=== PATIENT | female | born 1990 | race Caucasian/White ===

== ENCOUNTER 2022-12-23 23:34 | Emergency (ER) | payer MEDICAID, SELFPAY ==
[2022-12-23 23:35] VITALS: BP 142/79; PULSE 139; RESP 18; TEMP 36.6; O2SAT 99; BMI 21.6
--- NOTE | 2022-12-24 00:07 | CT_ITS ---
INDICATION: post op pain, RLQ pain EXAMINATION: CT ABDOMEN AND PELVIS WITH CONTRAST - CT Abdomen And Pelvis W/ Contrast Injection TECHNIQUE: Helically acquired images were obtained of the abdomen and pelvis following IV contrast. A radiation dose optimization technique was used for this scan. IV Contrast dosage and agent: 6 Oral contrast: None. COMPARISON: None. FINDINGS: LOWER CHEST: Lung bases are clear. No cardiomegaly or pericardial effusion. LIVER: Homogeneous. No focal mass. GALLBLADDER AND BILIARY TREE: No calcified gallstones. No gallbladder distension or wall edema. No intra- or extrahepatic biliary ductal dilation. PANCREAS: No focal cystic or solid mass. SPLEEN: Normal size without focal cystic or solid mass. ADRENAL GLANDS: No nodules. KIDNEYS AND URETERS: Normal renal size and position. No hydronephrosis. PERITONEUM: Small amount of free air and free fluid in the pelvis consistent with postsurgical changes . BOWEL: No stomach or bowel distension. No focal inflammatory change. LYMPH NODES: No enlarged mesenteric or retroperitoneal lymph nodes. VESSELS: Aorta is non-dilated. URINARY BLADDER: Unremarkable. REPRODUCTIVE ORGANS: No pelvic masses. ABDOMINAL WALL: There is heterogeneous high attenuation lesion involving the right transverse abdominis muscle measuring approximately 6.4 x 4 x 11 cm consistent with hematoma. BONES: No lytic or blastic abnormality. CT/Abdomen/Pelvis W IV Cont ONLY IMPRESSION: There is heterogeneous high attenuation lesion involving the right transverse abdominis muscle measuring approximately 6.4 x 4 x 11 cm consistent with hematoma. Electronically Signed: Azam Villanueva MD at 2:32 EST ,
[2022-12-24] MEDS: 0.9% Normal Saline 1,000 ML 1000 ML IV (00:11)
[2022-12-24] MEDS: Ondansetron 4 MG/2 ML Vial IV ×2 (00:16→03:36)
[2022-12-24] MEDS: HYDROmorphone 0.5 MG/0.5 ML SYRINGE IV ×2 (00:16→03:25)
--- NOTE | 2022-12-24 00:25 | EDS_ITS ---
HPI HPI - GI History of Present Illness Chief Complaint: Abd Pain Informant: patient and family Narrative Narrative: Patient is a 32-year-old female with history of recent hysterectomy performed by Dr. De La Rosa at [facility] on December 17. She is presenting to the ER today for increased abdominal pain, nausea, vomiting and constipation. She notes her last bowel movement was the day before her surgery on 16 December. She has been passing gas and intermittently taken a couple doses of MiraLAX as well as senna. The pain is worsened and her surgeon recommend she come to the ER. Patient started throwing up today and has not been able to take her pain medicine since this afternoon as well. She is the pain is constant but is much worse today. Patient has been taking Dilaudid at home for her pain. Her postoperative course was complicated by pain control. She denies any fever or changes to her wound. Denies any redness or drainage to her wound. Her sister notes that when she stands up she seems normal to have a bulge in her right lower abdomen that is not present when she lays flat. No other complaints at this time right now. Patient is a history of tobacco use has not had a cigarette in the past week. PFSH PFS Medical History Cervical cancer Former smoker Home Medications ondansetron 4 mg disintegrating tablet 4 mg PO Q6H PRN nausea and vomiting #10 tabs 12/24/22 [Rx Last Taken Unknown] Allergy/AdvReac Type Severity Reaction Status Date / Time No Known Allergies Allergy Verified 12/23/22 23:37 Surgical History S/P hysterectomy Social History Smoking Status: Former smoker ROS ROS ED Constitutional Constitutional ED: Denies chills or fever(s) ENT ENT ED: Denies sore throat Cardiovascular Cardiovascular: Denies chest pain Respiratory/Chest Respiratory/Chest: Denies cough Gastrointestinal Gastrointestinal: Reports abdominal pain, constipation, nausea and vomiting Genitourinary Genitourinary ED: Denies dysuria or hematuria Musculoskeletal Musculoskeletal: Denies arthralgias or myalgias Integumentary Denies rash Neurologic Neurologic: Denies headache(s) Hematologic/Lymphatic Hematologic/Lymphatic: Denies easy bleeding or easy bruising EXAM Physical Exam Const Vital Signs: 12/23/22 23:35 12/24/22 01:10 12/24/22 03:39 Temperature 97.9 F 98.3 F Temperature Source Temporal Oral Pulse Rate 139 H 81 79 Respiratory Rate 18 16 16 Blood Pressure 142/79 H 119/82 H 128/89 H Blood Pressure Mean 100 94 102 Pulse Ox 99 96 98 Oxygen Delivery Method Room Air Room Air Room Air 12/24/22 04:41 Temperature Temperature Source Pulse Rate 75 Respiratory Rate 17 Blood Pressure 124/86 H Blood Pressure Mean Pulse Ox 100 Oxygen Delivery Method Positive well nourished and well developed General Appearance ED: well developed HEENT Reports moist mucous membranes normocephalic and atraumatic Eyes PERRL Neck supple Resp normal respiratory effort and clear to auscultation bilaterally Cardio regular rhythm and no murmurs Rate: tachycardic GI non-distended Inspection: Negative for abdominal distention Auscultation: normoactive bowel sounds Palpation: soft and tender RLQ; Negative for guarding, rigid or rebound tenderness present Extremity full ROM General Extremety ED: Negative for edema General Extremity: Negative for edema Neuro moves all extremities Motor Exam: Negative for general weakness Psych thought process normal Mood & Affect: anxious and tearful Skin Skin Narrative: Low transverse surgical incision with Steri-Strips in place. There is some small amount of dried blood however no associated drainage, surrounding erythema or other signs of a surgical site infection MDM MDM MDM Narrative Medical decision making narrative: Patient evaluated for postoperative pain, vomiting and constipation. Differential includes postoperative infection, ileus, small bowel obstruction and appendicitis. Patient is given Zofran, fluids and Dilaudid for symptom control. We will obtain labs including a lactate as well as a CT of the abdomen pelvis for further evaluation. Patient does have improvement of symptoms with medications but continues to have tenderness in the right lower quadrant on repeat evaluation. Heart rate does improve. Work-up is remarkable for leukocytosis of 23.2 and elevated platelets which I suspect in part is from hemoconcentration. She does have 150 ketones in her urine. Bicarb is 18 and she is mildly hyponatremic and hypochloremic. Lactate is normal. CT of the abdomen pelvis shows a heterogenous high attenuating mass involving the right transverse abdominis muscle consistent with a hematoma. This corresponds to her area of pain. Case discussed with [facility] [employer] on-call at [facility], Dr. Stoner who suspects the hematoma is likely's from the tap block she received. She is familiar with the patient from her postoperative stay surgical the patient had difficulty with pain control postoperatively as well. I discussed close outpatient follow-up today versus transfer. Patient is asked what she would prefer and states at this time she would rather follow-up later in the day as overall her symptoms have improved. Patient counseled that if she has progression or worsening of her symptoms she should return either to our emergency room or to go up to [facility] [place]. She is given a second liter of fluid for dehydration and another dose of pain and nausea medicine. Will be given a prescription for Zofran. Counseled on possibility of expanding hematoma as well as infected hematoma. We will follow-up outpatient closely. She remains hemodynamically stable in the ER stable low suspicion for significant expanding hematoma/bleeding causing symptomatic anemia/hemorrhagic shock. In addition her lactate is normal. Lab Data Labs: Laboratory Results - last 24 hr 12/24/22 12/24/22 12/24/22 00:30 00:30 00:50 WBC 23.2 H RBC 3.87 L Hgb 12.4 Hct 35.5 L MCV 91.7 MCH 32.0 MCHC 34.9 RDW Std Deviation 42.1 RDW Coeff of [place] 12.8 Plt Count 582 H MPV 9.5 Immature Gran % (Auto) 0.800 Neut % (Auto) 78.9 H Lymph % (Auto) 9.5 L Petroleum % (Auto) 9.2 Eos % (Auto) 1.1 Baso % (Auto) 0.5 Absolute Neuts (auto) 18.3 H Absolute Lymphs (auto) 2.21 Nucleated RBC % 0 Differential Comment SCANNED Diff Path Review May foll Platelet Estimate MOD INC Sodium 132 L Potassium 3.5 Chloride 93 L Carbon Dioxide 18.0 L Anion Gap 21 H BUN 11 Creatinine 0.56 Estim Creat Clear Calc 125.69 Est GFR (MDRD) Af Amer 161 Est GFR (MDRD) Non-Af 133 BUN/Creatinine Ratio 19.5 Glucose 119 H Lactic Acid 0.9 Calcium 9.9 Total Bilirubin 0.90 AST 17 ALT 16 Alkaline Phosphatase 110 Total Protein 8.6 H Albumin 4.0 Globulin 4.6 H Albumin/Globulin Ratio 0.9 Lipase 51 L Urine Color Urine Clarity Urine pH Ur Specific [place] Urine Protein Urine Glucose (UA) Urine Ketones Urine Occult Blood Urine Nitrite Urine Bilirubin Urine Urobilinogen Ur Leukocyte Esterase Urine RBC Urine WBC Ur Squamous Epith Cells Urine Bacteria Urine Mucus 12/24/22 01:00 WBC RBC Hgb Hct MCV MCH MCHC RDW Std Deviation RDW Coeff of [place] Plt Count MPV Immature Gran % (Auto) Neut % (Auto) Lymph % (Auto) Petroleum % (Auto) Eos % (Auto) Baso % (Auto) Absolute Neuts (auto) Absolute Lymphs (auto) Nucleated RBC % Differential Comment Diff Path Review Platelet Estimate Sodium Potassium Chloride Carbon Dioxide Anion Gap BUN Creatinine Estim Creat Clear Calc Est GFR (MDRD) Af Amer Est GFR (MDRD) Non-Af BUN/Creatinine Ratio Glucose Lactic Acid Calcium Total Bilirubin AST ALT Alkaline Phosphatase Total Protein Albumin Globulin Albumin/Globulin Ratio Lipase Urine Color Yellow Urine Clarity Clear Urine pH 5.0 Ur Specific [place] 1.025 Urine Protein 30 H Urine Glucose (UA) Normal Urine Ketones 150 A* Urine Occult Blood 10 H Urine Nitrite Negative Urine Bilirubin Negative Urine Urobilinogen Normal Ur Leukocyte Esterase Negative Urine RBC 0 SEEN Urine WBC 0 SEEN Ur Squamous Epith Cells 0-5 SEEN Urine Bacteria 1+ Urine Mucus 0 SEEN Radiography Diagnostic Testing: Clinical Impression(s) from Imaging Studies Abdomen/Pelvis CT 12/24/22 00:07 IMPRESSION: There is heterogeneous high attenuation lesion involving the right transverse abdominis muscle measuring approximately 6.4 x 4 x 11 cm consistent with hematoma. Electronically Signed: Azam Villanueva MD at 2:32 EST Reading Location ID and State: [address] [place] [address] Tel , Service support , Discharge Plan Triage Chief Complaint: Abd Pain ED Provider: Thuy Marshall Dx/Rx/DC Orders Clinical Impression: Abdominal wall hematoma, Nausea & vomiting, Postoperative abdominal pain, Leukocytosis, Acute dehydration Instructions: ED Hematoma, ED Post Op Wound Check, Pain, ED Vomiting (Adult) Prescriptions: New ondansetron 4 mg tablet,disintegrating 4 mg PO Q6H PRN (Reason: nausea and vomiting) Qty: 10 0RF Primary Care Provider: Care Physician,No Primary Referrals: Care Physician,No Primary [Primary Care Provider] - Activity Restrictions/Additional Instructions: Your [employer] office should contact you in the morning to schedule appointment to be seen later in the day. If you have progression/worsening of your symptoms, develop a fever or any other concerns please either go to [facility] or return to our emergency room. Disposition Disposition: Home, Self Care Discharge Date/Time: 12/24/22 04:42
[2022-12-24 00:50] LABS: Absolute Lymphocyte Count 2.21 X10^3/uL (0.83-4.51); Absolute Neutrophil Count 18.3 X10^3/uL (2.0-7.7); Basophil# 0.12 X10^3/uL; Basophil% 0.5 % (0-1); Eosinophil# 0.25 X10^3/uL; Eosinophils% 1.1 % (0-5); Hematocrit 35.5 % (37-47); Hemoglobin 12.4 g/dL (12.0-15.0); Lymphocyte # 2.21 X10^3/ul (0.83-4.51); Lymphocyte % 9.5 % (19-41); Mean Corp Hgb Conc 34.9 g/dL (32-36); Mean Corpuscular Volume 91.7 fL (81-99); Mean Platelet Vol. 9.5 fl (6.2-12.0); Monocyte# 2.13 X10^3/uL; Monocyte% 9.2 % (0-10); NRBC Flagged by Analyzer 0 % (0-5); Neutrophil % 78.9 % (47-70); POSITIVE DIFFERENTIAL YES; Platelet Count 582 K/mm3 (150-450); RBC Distribution Width CV 12.8 % (11.6-14.6); RBC Distribution Width SD 42.1 fl (35.1-43.9); Red Blood Count 3.87 M/mm3 (4.2-5.4); White Blood Count 23.2 K/mm3 (4.4-11.0)
[2022-12-24 01:00] LABS: Differential Indicated SCAN CRITERIA MET
[2022-12-24 01:08] LABS: Mucous, Urine 0 SEEN /hpf (<or=2+); Red Blood Cells-Urine 0 SEEN /hpf (0-5); White Blood Cells 0 SEEN /hpf (0-5)
[2022-12-24 01:10] VITALS: BP 119/82; PULSE 81; RESP 16; TEMP 36.8; O2SAT 96
[2022-12-24 01:10] LABS: Color, Urine Yellow (Yellow); Glucose, Dipstick Normal (Normal); Leukocyte Esterase-Dipstick Negative /ul (Negative); Nitrite-Dipstick Negative (Negative); Occult Blood-Urine 10 /ul (Negative); Protein-Dipstick 30 mg/dl (Negative); Specific Gravity, Urine 1.025 (1.002-1.030); Urine Bilirubin Dipstick Negative (Negative); Urine Clarity Clear (Clear); Urine Urobilinogen Normal (Normal)
[2022-12-24 01:13] LABS: Ketone-Dipstick 150 mg/dl (Negative)
[2022-12-24 01:22] LABS: Differential Comment SCANNED; Platelet Estimate MOD INC (ADEQ)
[2022-12-24 01:28] LABS: Bacteria 1+ /hpf (None Seen)
[2022-12-24 01:29] LABS: Squamous Epithelial Cells - UA 0-5 SEEN /hpf (5-10)
[2022-12-24 01:36] LABS: Lactic Acid 0.9 mmol/L (0.4-1.9)
[2022-12-24 01:51] LABS: ALB/GLOB Ratio 0.9 RATIO (0.9-2.4); AST(SGOT) 17 U/L (15-37); Alanine Aminotransfer ALT/SGPT 16 U/L (13-56); Alkaline Phosphatase 110 U/L (45-117); Anion Gap 21 (5-15); BUN 11 mg/dL (7-18); BUN/Creat Ratio 19.5 RATIO (10-20); Calcium,Total 9.9 mg/dL (8.5-10.1); Chloride 93 mmol/L (98-107); Creatinine, Serum 0.56 mg/dL (0.55-1.02); EST Glomerular Filtration Rate 133 mL/min (>60); Est Glom Filt Rate - Afr Amer 161 mL/min (>60); Estimated Creatinine Clearance 125.69 ml/min; Globulin 4.6 g/dL (2.2-4.2); Glucose 119 mg/dL (74-106); Lipase 51 U/L (73-393); Potassium 3.5 mmol/L (3.5-5.1); Protein, Total 8.6 g/dL (6.4-8.2); Sodium Level 132 mmol/L (136-145)
[2022-12-24] MEDS: 0.9% Normal Saline 1,000 ML 999 ML IV (03:25)
[2022-12-24 03:39] VITALS: BP 128/89; PULSE 79; RESP 16; O2SAT 98
[2022-12-24 04:41] VITALS: BP 124/86; PULSE 75; RESP 17; O2SAT 100
[2022-12-24 13:40] LABS: Pathologist Review Reviewed
== END 2022-12-24 04:42 | disposition home or self-care (01) ==
PROVIDERS: Emergency Provider Emergency Medicine; Visit Provider Emergency Medicine
DX: S30.1XXA Contusion of abdominal wall, initial encounter (principal); E86.0 Dehydration; D72.829 Elevated white blood cell count, unspecified; R11.2 Nausea with vomiting, unspecified; Z90.710 Acquired absence of both cervix and uterus; Z87.891 Personal history of nicotine dependence; X58.XXXA Exposure to other specified factors, initial encounter
CPT/HCPCS: 74177; 80053; 81001; 83605; 83690; 85025; 96361; 96374; 96375; 99283; J7030; Q9967; A4216; J2405

== ENCOUNTER 2024-08-10 08:12 | Emergency (ER) | payer SELFPAY ==
[2024-08-10 08:12] VITALS: BP 120/77; PULSE 83; RESP 14; TEMP 37.2; O2SAT 97; BMI 21.8
--- NOTE | 2024-08-10 08:29 | EX.ED.DYSGE1 ---
HPI History of Present Illness Chief Complaint: Cough Detail of Chief Complaint: Cough that started 5 to 6 days ago and is now productive Informant: patient Onset/Context/Timing Onset: Days Context: Sudden Onset Timing: Continuous and Waxes and wanes Quality: Upper respiratory symptoms started 5 to 6 days ago Location: Upper respiratory Current Severity: Mild Maximum Severity: Moderate Worsened by: Nothing specific Relieved by: Nothing Associated Symptoms Associated Symptoms: Subjective fever, myalgias arthralgias, exposure to multiple family numbers Narrative Narrative: Patient is a 33-year-old woman. She is a smoker. She presents smokes 1/2 pack/day. 5 years ago she smoked 2 packs/day. She presents with cough that started 5 to 6 days ago. Cough has become productive over the past 2 days. She states it is thick and green to yellow in color. She does endorse nasal congestion. She denies headache, photophobia neck pain or neck stiffness. Denies ear pain or ear drainage. She does complain of discomfort in her chest when she coughs. She denies dyspnea or dyspnea with activity. She does admit to wheezing. She has no history of asthma or COPD. She denies abdominal pain, nausea, vomiting or diarrhea. She has not noted a rash. She does endorse myalgias arthralgias. She informing that several family with him and recently diagnosed with pneumonia. Prior similar symptoms: Yes Recent Illness/Hospitalization: No PFSH PFSH Medical History Former smoker Cervical cancer Allergy/AdvReac Type Severity Reaction Status Date / Time No Known Allergies Allergy Verified 08/10/24 08:12 Surgical History S/P hysterectomy Social History (Updated 08/10/24 @ 08:[address] Ranulfo Finley MD) household members: significant other and children Smoking Status: Light Smoker (<10/day) ROS ROS ED Constitutional Constitutional ED: Reports fever(s) and subjective; Denies chills or sweats Eyes Eyes: Denies blurry vision or change in vision ENT ENT ED: Reports rhinorrhea, sore throat and other Details: Patient does endorse hoarse voice. This started 2 to 3 days ago. ; Denies ear pain Cardiovascular Cardiovascular: Reports chest pain; Denies orthopnea, palpitations, paroxysmal nocturnal dyspnea or racing heartbeat Respiratory/Chest Respiratory/Chest: Reports cough and sputum; Denies dyspnea, dyspnea on exertion, orthopnea or paroxysmal nocturnal dyspnea Gastrointestinal Gastrointestinal: Denies abdominal pain, diarrhea, nausea or vomiting Genitourinary Genitourinary ED: Denies dysuria, hematuria or urinary frequency Musculoskeletal Musculoskeletal: Reports arthralgias and myalgias Integumentary Denies rash Neurologic Neurologic: Denies headache(s) or paresthesias Endocrine Endocrinology: Denies cold intolerance or heat intolerance Hematologic/Lymphatic Hematologic/Lymphatic: Reports systems reviewed and no addt'l complaints, except as documented EXAM Physical Exam Const Vital Signs: 08/10/24 08:12 08/10/24 08:41 Temperature 99 F Temperature Source Temporal Pulse Rate 83 Respiratory Rate 14 Respiratory Effort Short of Breath Respiratory Depth Normal Respiratory Pattern Normal Blood Pressure 120/77 Blood Pressure Mean 91 Pulse Ox 97 Oxygen Delivery Method Room Air Positive well nourished and well developed Constitutional Narrative: Patient appears ill. She does not appear toxic. General Appearance ED: well developed; Negative for cyanotic, diaphoretic, NAD or pallor HEENT Reports dry mucous membranes HEENT Narrative: Head is atraumatic no cephalic. Ears normal. Nares patent with slight discharge. Posterior pharynx is normal. Mouth ED: Yes dry mucous membranes Mouth: dry mucous membranes Eyes PERRL and EOMs intact bilaterally General Eye ED: Negative for pale conjunctiva or scleral icterus Neck no lymphadenopathy, supple and no JVD Resp normal respiratory effort and No clear to auscultation bilaterally Auscultation: wheezes expiratory wheezes, scattered wheezes and throughout Cardio regular rate, regular rhythm, S1 normal heart sound, S2 normal heart sound and no murmurs GI normal to inspection, nondistended, normoactive bowel sounds, non-tender, non-distended and no masses; Negative for hepatosplenomegaly Back/Spine no CVA tenderness Back/Spine Narrative: Bilateral paralumbar pain to palpation. She did complain of back pain. The back pain started after she carried her nephew on her shoulders. This occurred 2 to 3 days ago. She has no neurovascular symptoms. Extremity normal to inspection General Extremety ED: Negative for edema or tenderness General Extremity: Negative for edema Neuro oriented x3, CN's II-XII intact bilaterally and no sensory deficits noted Sensorium / Orientation: alert Motor Exam: strength 5/5 throughout Psych mental status grossly normal Skin no rashes or lesions noted, no wounds and skin turgor normal General Skin Exam: elasticity normal; Negative for jaundice or pallor MDM MDM MDM Narrative Medical decision making narrative: Patient presents with respiratory symptoms. Since she is wheezing we will have respiratory show her how to use a metered-dose inhaler and she will receive this when discharged. Chest x-ray was obtained to evaluate for pneumonia. Also rapid antigen for COVID, influenza and RSV was ordered. This may represent a viral illness especially since she complains of myalgias and arthralgias as well. History & Record Review Additional record(s) reviewed:: Prior ED visit (December 2022 for a abdominal wall hematoma.) and Prior labs Lab Data Attestation: I reviewed the patient's lab results. Lab results narrative: Rapid antigen for COVID, influenza and RSV was positive for COVID. Patient was made aware of results. Patient asked for a work excuse. Radiography Chest X-Ray - ED: 2 View, Read by ED Physician (Reviewed interpreted by me at 0907), Normal, Heart, Lungs, Mediastinum, Bony Structures and No Acute Disease Diagnostic Testing: Clinical Impression(s) from Imaging Studies Chest X-Ray 08/10/24 08:55 IMPRESSION: Normal x-ray examination of the chest. Electronically Signed: Maxi Byrne MD at 9:15 EDT Reading Location ID and State: [facility] / [place] , Service support , Discharge Plan Triage Chief Complaint: Cough ED Provider: Ranulfo Finley Dx/Rx/DC Orders Clinical Impression: COVID-19 virus infection, Upper respiratory infection with cough and congestion, Fever in adult Instructions: Coronavirus Disease 2019 (COVID-19): Caring for Yourself or Others, ED Fever Control (Adult) Stand Alone Forms: ED Work / School Excuse Primary Care Provider: Care Physician,No Primary Referrals: Celeste Avila [Non-Staff] - 10-14 Days if not better Care Physician,No Primary [Primary Care Provider] - Activity Restrictions/Additional Instructions: 1. 2 puffs of inhaler every 2-4 hours while awake for the next 3 to 5 days then every 4-6 hours as needed for wheezing or shortness of breath 2. Take either 625 mg of Tylenol every 4-6 hours for fever and aches or 4 ibuprofen tablets every 8 hours. 3. You may be ill for another 7 to 10 days. Print Language: [place] Disposition Disposition: Home, Self Care
--- NOTE | 2024-08-10 08:55 | RAD_ITS ---
STUDY: X-RAY CHEST REASON FOR EXAM: Female, 33 years old. Productive cough, wheezing, fever TECHNIQUE: PA and lateral views of the chest. COMPARISON: None. FINDINGS: The lungs are clear and expanded. There is no demonstrated pleural abnormality. Normal size heart. Normal mediastinum and eran. Normal visualized pulmonary arteries. Normal visualized aortic arch and descending thoracic aorta. Normal visualized thoracic spine. Normal visualized ribs, clavicles, and shoulders. There is no demonstrated abnormality of the visualized soft tissue structures of the upper abdomen. RAD/Chest PA and Lateral IMPRESSION: Normal x-ray examination of the chest. Electronically Signed: Maxi Byrne MD at 9:15 EDT ,
[2024-08-10] MEDS: Albuterol Sulfate 8 gm Inhaler (60 puffs) 6 PUFF INHALATION (09:16)
[2024-08-10 10:15] VITALS: BP 120/77; PULSE 83; RESP 14; TEMP 37.2; O2SAT 97
== END 2024-08-10 10:15 | disposition home or self-care (01) ==
PROVIDERS: Emergency Provider Emergency Medicine; Visit Provider Emergency Medicine
DX: U07.1 COVID-19 (principal); J06.9 Acute upper respiratory infection, unspecified; F17.200 Nicotine dependence, unspecified, uncomplicated; R50.9 Fever, unspecified
CPT/HCPCS: 71046; 87631; 99282

== ENCOUNTER 2024-12-04 18:59 | Emergency (ER) | payer SELFPAY ==
[2024-12-04 19:00] VITALS: BP 119/75; PULSE 95; RESP 16; TEMP 36.6; O2SAT 99; BMI 23.3
--- NOTE | 2024-12-04 19:22 | EDS_ITS ---
HPI History of Present Illness Chief Complaint: Abd Pain [facility] Medical History Former smoker Cervical cancer Home Medications ?Medication ?Instructions ?Recorded ?Last Taken ?Type omeprazole 40 mg capsule,delayed 40 mg PO DAILY #30 caps 12/04/24 Unknown Rx release ondansetron 4 mg disintegrating 4 mg PO Q8H PRN PRN Nausea #10 tabs 12/04/24 Unknown Rx tablet Allergy/AdvReac Type Severity Reaction Status Date / Time No Known Allergies Allergy Verified 12/04/24 19:01 Surgical History S/P hysterectomy Social History (Updated 08/10/24 @ 08:[address] Ranulfo Finley MD) household members: significant other and children Smoking Status: Light Smoker (<10/day) EXAM Physical Exam Const Vital Signs: 12/04/24 19:00 12/04/24 21:00 12/04/24 21:24 Temperature 97.8 F Temperature Source Oral Pulse Rate 95 70 79 Respiratory Rate 16 15 18 Blood Pressure 119/75 89/60 L 103/60 Blood Pressure Mean 89 69 74 Pulse Ox 99 98 98 Oxygen Delivery Method Room Air Room Air 12/04/24 22:31 Temperature 98.0 F Temperature Source Pulse Rate 70 Respiratory Rate 18 Blood Pressure 94/65 Blood Pressure Mean 74 Pulse Ox 100 Oxygen Delivery Method MDM MDM MDM Narrative Medical decision making narrative: HISTORY OF PRESENT ILLNESS: 34-year-old female notes generalized abdominal pain started today. She further states this began today just prior to arrival. Notes diffuse pain. Denies vomiting. Notes constipation but no diarrhea. Denies urinary complaints. Denies vaginal bleeding or discharge. Notes history of a radical hysterectomy REVIEW OF SYSTEMS: Pertinent positives: Abdominal pain Pertinent negatives: Fever, vomiting PHYSICAL EXAM: Nursing triage notes reviewed, Vital signs reviewed Constitutional: please see mdm HENT: MMM Eyes: Pupils equal round and reactive to light, Extraocular muscles intact Neck: No stridor, no JVD, full neck ROM Lungs: Clear to auscultation, No wheezing or rales. No increased work of breathing, no conversational dyspnea, no accessory muscle use, no nasal flaring. No respiratory distress noted Heart: Regular rate and rhythm, No murmurs, No rubs and No gallops, 2+ distal pulses (radial, femoral, posterior tibial) in all extremities Abdomen: Soft, diffuse tenderness but no rigidity, rebound or guarding, no obvious peritoneal signs, no palpable pulsatile abdominal masses, no auscultated abdominal bruit : No CVAT Extremities: No edema Neuro: No new focal neurological deficits, cranial nerves II through XII intact, 5/5 strength in all present extremities. Intact sensation to light touch in all present extremities, 2+ reflexes bilateral patella tendons. Skin: No rash or lesions noted MEDICAL DECISION MAKING: Chief Complaint: Abdominal pain External records reviewed: CT scan abdomen pelvis from 2022 showed intra- abdominal hematoma Factors affecting care: cervical cancer Social determinants of health: History of smoking History obtained from others: Consults: none. [facility] Narrative: Patient was initially hemodynamically stable, afebrile and nontoxic-appearing. Diffuse abdominal tenderness I considered the following differential diagnosis: AAA, small bowel obstruction, abdominal perforation, appendicitis, pancreatitis, hepatobiliary pathology (acute cholecystitis), mesenteric ischemia, pathology (ie nephrolithiasis, pyelonephritis). I obtained a broad lab and imaging workup to further elucidate etiology of patient's complaints. Initially resuscitated patient 1 L normal saline, 4 mg IV Zofran and 15 mg of IV Toradol ALL IMAGES (IF OBTAINED) HAVE BEEN PERSONALLY REVIEWED AND INTERPRETED BY MYSELF. CT scan shows no evidence of obvious intra-abdominal pathology including AAA, obstruction, perforatio Lipase is wnl indicating no pancreatic inflammation. LFTs show no evidence of hepatobiliary pathology. Urinalysis shows no evidence of urinary inflammation suggestive of UTI CBC showed leukocytosis concerning for systemic inflammation however this is downtrending from prior study, no anemia or thrombocytopenia noted BMP without significant electrolyte abnormalities, no sign of endorgan hypoperfusion or metabolic acidosis with a normal anion gap and bicarb respectively, no IDA Upon reevaluation patient continued pain she received 4 mg of IV morphine in addition to the above medications. No clear life-limiting etiology to be ascertained. Repeat abdominal exam was benign. There is no clinical, lab or imaging evidence of an acute life at pathology. As the patient has had a hysterectomy in the past is not concerned for related complications (ectopic or miscarriage). The patient's point for discharge home. The patient and/or family, caregivers express understanding. The patient and/or family, caregivers agrees with the plan. Shared decision making: I will have a discussion with the patient and or visitors regarding risk/benefits of further testing or admission. They will be made aware of of the risk/benefits inherent in this decision they will be given the opportunity to voice understanding. Total critical care time today provided was at least 0 minutes. This excludes separately billable procedures. Critical care time (if documented) is secondary to the patient having high probability of clinically significant/life threatening deterioration in the patient's condition which required my urgent intervention. Impression: 1. Abdominal pain 2. History of hysterectomy Dispo: Discharge This note was generated with [employer] dictation software. It may contain incorrect words, spelling, and punctuation that were not noted in review of the chart prior to signing. Lab Data Labs: Laboratory Results - last 24 hr 12/04/24 12/04/24 19:20 19:53 WBC 14.3 H RBC 4.62 Hgb 14.6 Hct 42.3 MCV 91.6 MCH 31.6 MCHC 34.5 RDW Std Deviation 43.4 RDW Coeff of [place] 13.0 Plt Count 382 MPV 8.7 Immature Gran % (Auto) 0.400 Neut % (Auto) 79.5 H Lymph % (Auto) 11.8 L [place] % (Auto) 4.6 Eos % (Auto) 3.2 Baso % (Auto) 0.5 Absolute Neuts (auto) 11.3 H Absolute Lymphs (auto) 1.68 Nucleated RBC % 0 Sodium 138 Potassium 3.6 Chloride 108 H Carbon Dioxide 24.0 Anion Gap 6 BUN 14 Creatinine 0.94 Estim Creat Clear Calc 73.51 Est GFR (MDRD) Af Amer 88 Est GFR (MDRD) Non-Af 73 BUN/Creatinine Ratio 14.8 Glucose 103 Calcium 9.4 Total Bilirubin 0.30 Direct Bilirubin 0.09 AST 22 ALT 27 Alkaline Phosphatase 132 H Total Protein 7.7 Albumin 4.0 Globulin 3.7 Lipase 39 Urine Color Yellow Urine Clarity Clear Urine pH 5.0 Ur Specific [place] 1.010 Urine Protein Negative Urine Glucose (UA) Normal Urine Ketones Negative Urine Occult Blood Negative Urine Nitrite Negative Urine Bilirubin Negative Urine Urobilinogen Normal Ur Leukocyte Esterase Negative Urine RBC 0 SEEN Urine WBC 0-5 SEEN Ur Squamous Epith Cells 0-5 SEEN Urine Bacteria 0 SEEN Urine Mucus 0 SEEN Radiography Diagnostic Testing: Clinical Impression(s) from Imaging Studies Abdomen/Pelvis CT 12/04/24 19:36 IMPRESSION: 1. Punctate left lower pole calyceal stones and punctate right interpolar region calyceal stone. No hydronephrosis or ureterolithiasis. 2. Status post hysterectomy. 3. No additional acute pathology. Electronically Signed: Jaylen Thomas DO at 22:15 EST , Discharge Plan Triage Chief Complaint: Abd Pain ED Provider: Amadou Cobos Dx/Rx/DC Orders Instructions: ED Abdominal Pain Unkn Cause Fem Prescriptions: New omeprazole 40 mg capsule,delayed release(DR/EC) 40 mg PO DAILY Qty: 30 0RF ondansetron 4 mg tablet,disintegrating 4 mg PO Q8H PRN PRN (Reason: Nausea) Qty: 10 0RF Primary Care Provider: Care Physician,No Primary Referrals: Aly Mckeon MD [Med Staff - Setter [employer]] - Activity Restrictions/Additional Instructions: Thank you for trusting us with your care today! Please take Tylenol (2 pills, 650 mg), ibuprofen (2 pills, 400 mg) every 6 hours as needed for pain and fever control. Please return to the emergency department if your symptoms change or worsen. Please follow with your primary care physician for further outpatient evaluation and management. Print Language: Ugandan Disposition Disposition: Home, Self Care Discharge Date/Time: 12/04/24 22:49
--- NOTE | 2024-12-04 19:36 | CT_ITS ---
EXAM: CT ABDOMEN AND PELVIS WITH INTRAVENOUS CONTRAST CLINICAL INDICATION: Abdominal pain, diffuse, nonlocalized TECHNIQUE: Helically acquired images were obtained of the abdomen and pelvis with intravenous contrast. This CT exam was performed using one or more of the following dose reduction techniques: automated exposure control, adjustment of the mA and/or kV according to patient size, and/or use of iterative reconstruction technique. CONTRAST: IV 100mL Isovue-370 COMPARISON: 12/24/2022 FINDINGS: LOWER THORAX: No significant abnormality. Lung bases are clear. No cardiomegaly. No significant pericardial effusion. ABDOMEN: LIVER: No significant abnormality. Homogeneous. No focal mass. GALLBLADDER AND BILE DUCTS: No significant abnormality. No calcified gallstones. No gallbladder distention or wall edema. No intra- or extrahepatic biliary ductal dilation. PANCREAS: No significant abnormality. No focal cystic or solid mass. SPLEEN: No significant abnormality. Normal size without focal cystic or solid mass. ADRENALS: No significant abnormality. No nodules. KIDNEYS AND URETERS: Punctate left lower pole calyceal stones and punctate right interpolar region calyceal stone. No hydronephrosis or ureterolithiasis. STOMACH AND BOWEL: No significant abnormality. No stomach or bowel distention. No focal inflammatory change. PELVIS: APPENDIX: Normal appendix in the right lower quadrant. BLADDER: No significant abnormality. REPRODUCTIVE: Status post hysterectomy. ABDOMEN and PELVIS: INTRAPERITONEAL SPACE: No significant abnormality. No ascites or other fluid collection. No free air. BONES/JOINTS: No significant abnormality. No suspicious lytic or blastic abnormality. SOFT TISSUES: Fat-containing umbilical hernia. VASCULATURE: No significant abnormality. Abdominal aorta is non-dilated. LYMPH NODES: No significant abnormality. No enlarged lymph nodes. CT/Abdomen/Pelvis W IV Cont ONLY IMPRESSION: 1. Punctate left lower pole calyceal stones and punctate right interpolar region calyceal stone. No hydronephrosis or ureterolithiasis. 2. Status post hysterectomy. 3. No additional acute pathology. Electronically Signed: Jaylen Thomas DO at 22:15 EST ,
[2024-12-04] MEDS: Ondansetron 4 MG/2 ML Vial IV (19:46)
[2024-12-04] MEDS: Ketorolac 15 MG/ML Vial IV (19:46)
[2024-12-04 19:47] LABS: Absolute Lymphocyte Count 1.68 X10^3/uL (0.83-4.51); Absolute Neutrophil Count 11.3 X10^3/uL (2.0-7.7); Basophil# 0.07 X10^3/uL; Basophil% 0.5 % (0-1); Eosinophil# 0.46 X10^3/uL; Eosinophils% 3.2 % (0-5); Hematocrit 42.3 % (37-47); Hemoglobin 14.6 g/dL (12.0-15.0); Lymphocyte # 1.68 X10^3/ul (0.83-4.51); Lymphocyte % 11.8 % (19-41); Mean Corp Hgb Conc 34.5 g/dL (32-36); Mean Corpuscular Hgb 31.6 pg (27.0-32.0); Mean Corpuscular Volume 91.6 fL (81-99); Mean Platelet Vol. 8.7 fl (6.2-12.0); Monocyte# 0.66 X10^3/uL; Monocyte% 4.6 % (0-10); NRBC Flagged by Analyzer 0 % (0-5); Neutrophil # 11.34 X10^3/uL (2.7-7.7); Neutrophil % 79.5 % (47-70); Platelet Count 382 K/mm3 (150-450); RBC Distribution Width SD 43.4 fl (35.1-43.9); Red Blood Count 4.62 M/mm3 (4.2-5.4); White Blood Count 14.3 K/mm3 (4.4-11.0)
[2024-12-04] MEDS: 0.9% Normal Saline (1000mL) 1,000 ML 999 ML IV (19:47)
[2024-12-04 19:57] LABS: Bacteria 0 SEEN /hpf (None Seen); Mucous, Urine 0 SEEN /hpf (<or=2+); Red Blood Cells-Urine 0 SEEN /hpf (0-5)
[2024-12-04 20:00] LABS: Color, Urine Yellow (Yellow); Glucose, Dipstick Normal (Normal); Ketone-Dipstick Negative (Negative); Leukocyte Esterase-Dipstick Negative /ul (Negative); Nitrite-Dipstick Negative (Negative); Occult Blood-Urine Negative /ul (Negative); Protein-Dipstick Negative (Negative); Urine Bilirubin Dipstick Negative (Negative); Urine Clarity Clear (Clear); Urine Urobilinogen Normal (Normal)
[2024-12-04 20:07] LABS: AST(SGOT) 22 U/L (15-37); Alanine Aminotransfer ALT/SGPT 27 U/L (13-56); Alkaline Phosphatase 132 U/L (45-117); Anion Gap 6 (5-15); BUN 14 mg/dL (7-18); BUN/Creat Ratio 14.8 RATIO (10-20); Bilirubin, Direct 0.09 mg/dL (0.00-0.30); Calcium,Total 9.4 mg/dL (8.5-10.1); Chloride 108 mmol/L (98-107); Creatinine, Serum 0.94 mg/dL (0.55-1.02); EST Glomerular Filtration Rate 73 mL/min (>60); Est Glom Filt Rate - Afr Amer 88 mL/min (>60); Estimated Creatinine Clearance 73.51 ml/min; Globulin 3.7 g/dL (2.2-4.2); Glucose 103 mg/dL (74-106); Lipase 39 U/L (13-75); Potassium 3.6 mmol/L (3.5-5.1); Protein, Total 7.7 g/dL (6.4-8.2); Sodium Level 138 mmol/L (136-145)
[2024-12-04 20:10] LABS: Squamous Epithelial Cells - UA 0-5 SEEN /hpf (5-10); White Blood Cells 0-5 SEEN /hpf (0-5)
[2024-12-04 21:00] VITALS: BP 89/60; PULSE 70; RESP 15; O2SAT 98
[2024-12-04 21:24] VITALS: BP 103/60; PULSE 79; RESP 18; O2SAT 98
[2024-12-04] MEDS: Morphine 4 MG/ML Syringe IV (21:57)
[2024-12-04 22:31] VITALS: BP 94/65; PULSE 70; RESP 18; TEMP 36.7; O2SAT 100
== END 2024-12-04 22:49 | disposition home or self-care (01) ==
PROVIDERS: Emergency Provider Emergency Medicine; Visit Provider Emergency Medicine
DX: R10.9 Unspecified abdominal pain (principal); C53.9 Malignant neoplasm of cervix uteri, unspecified; F17.200 Nicotine dependence, unspecified, uncomplicated; Z79.899 Other long term (current) drug therapy; Z90.710 Acquired absence of both cervix and uterus
CPT/HCPCS: 74177; 80048; 80076; 81001; 83690; 85025; 96361; 96374; 96375; 99283; Q9967; A4216; J2405

== ENCOUNTER 2024-12-22 18:04 | Emergency (ER) | payer SELFPAY ==
[2024-12-22 18:05] VITALS: BP 116/78; PULSE 100; RESP 15; TEMP 38.4; O2SAT 98; BMI 23.3
--- NOTE | 2024-12-22 18:09 | EKG12_ITS ---
Test Reason : CP Blood Pressure : */* mmHG Vent. Rate : 89 BPM Atrial Rate : 89 BPM P-R Int : 158 ms QRS Dur : 86 ms QT Int : 326 ms P-R-T Axes : 62 81 35 degrees QTcB Int : 396 ms Normal sinus rhythm Normal ECG Confirmed by DENNIS CHAMBERS, MICHELLE ([id number]), telegraph editor SUDHAKAR BARROSO ([id number]) on 12/24/2024 12:59:42 PM Referred By: Confirmed By: MICHELLE COLLINS MD
--- NOTE | 2024-12-22 18:34 | RAD_ITS ---
PROCEDURE: CHEST 1 VIEW (PORTABLE) REASON FOR EXAM: 34-year-old female, cough, shortness of breath, chest pain, fevers, nausea and diarrhea x5 days. TECHNIQUE: Frontal view of the chest. COMPARISON: Chest radiograph 08/10/2024. FINDINGS: The heart size is normal. The lungs are clear. The bones are unremarkable. RAD/Chest 1 View (Portable) IMPRESSION: NEGATIVE CHEST. Reading Location: [id number]
--- NOTE | 2024-12-22 18:45 | EDS_ITS ---
HPI History of Present Illness Chief Complaint: Chest Pain [facility] Medical History Former smoker Cervical cancer Home Medications ?Medication ?Instructions ?Recorded ?Last Taken ?Type omeprazole 40 mg capsule,delayed 40 mg PO DAILY #30 ca ps 12/04/24 Unknown Rx release ondansetron 4 mg disintegrating 4 mg PO Q8H PRN PRN Na usea #10 tabs 12/04/24 Unknown Rx tablet albuterol sulfate 90 mcg/actuation 1 inh inhalation Q6 H PRN shortness 12/22/24 Unknown Rx breath activated powder inhaler of breath #1 ea prednisone 20 mg tablet 20 mg PO DAILY 5 days #5 tab s 12/22/24 Unknown Rx Allergy/AdvReac Type Severity Reaction Status Date / Time No Known Allergies Allergy Verified 12/22/24 18:05 Surgical History S/P hysterectomy Social History (Updated 08/10/24 @ 08:[address] Ranulfo Finley MD) household members: significant other and children Smoking Status: Light Smoker (<10/day) EXAM Physical Exam Const Vital Signs: 12/22/24 18:05 12/22/24 19:11 12/22/24 19:12 Temperature 101.2 F H 100.3 F H Temperature Source Oral Oral Pulse Rate 100 90 Respiratory Rate 15 17 Respiratory Pattern Blood Pressure 116/78 120/71 Blood Pressure Mean 90 87 Pulse Ox 98 97 Oxygen Delivery Method Room Air Room Air Room Air 12/22/24 20:29 12/22/24 20:30 12/22/24 20:53 Temperature Temperature Source Pulse Rate 77 85 Respiratory Rate 17 18 Respiratory Pattern Normal Blood Pressure 131/60 H Blood Pressure Mean 74 Pulse Ox 95 Oxygen Delivery Method MDM MDM MDM Narrative Medical decision making narrative: HISTORY OF PRESENT ILLNESS: 34-year-old female presents with chest pain, cough, shortness breath, fever, nausea and diarrhea for 5 days. She states symptoms have been ongoing. They are constant. Her pain is worse with coughing but not exertional. It is worse with a deep breath. Chest pain described as sharp. It is not pressure-like. It is not ripping or tearing denies sick contacts. Denies leg swelling. Denies bleeding diathesis. No she status post hysterectomy does not think she is . Denies vomiting. The patient denies recent surgery in the last 4 weeks or immobilization in the last 3 days, denies previous diagnosis of DVT or PE, hemoptysis, unilateral leg swelling or malignancy with treatment the last 6 months or palliative. No estrogen use noted. Patient denies sudden onset of pain, no tearing sensation, no migratory symptoms, no new numbness, weakness or loss of sensation. Patient denies family history or personal history of Connective tissue disorders (Marfan's Syndrome, Palmira Danlos etc). REVIEW OF SYSTEMS: Pertinent positives: As per HPI Pertinent negatives: Vomiting PHYSICAL EXAM: Nursing triage notes reviewed, Vital signs reviewed Constitutional: please see mdm HENT: MMM Eyes: Pupils equal round and reactive to light, Extraocular muscles intact Neck: No stridor, no JVD, full neck ROM Lungs: Coarse breath sounds, bilateral wheezing no increased work of breathing, no conversational dyspnea, no accessory muscle use, no nasal flaring. No respiratory distress noted Heart: Regular rate and rhythm, No murmurs, No rubs and No gallops, 2+ distal pulses (radial, femoral, posterior tibial) in all extremities Abdomen: Soft, there is no tenderness, rigidity, rebound or guarding, no obvious peritoneal signs, no palpable pulsatile abdominal masses, no auscultated abdominal bruit : No CVAT Extremities: No edema Neuro: No new focal neurological deficits, cranial nerves II through XII intact, 5/5 strength in all present extremities. Intact sensation to light touch in all present extremities, 2+ reflexes bilateral patella tendons. Skin: No rash or lesions noted MEDICAL DECISION MAKING: Chief Complaint: Chest pain External records reviewed: Reviewed prior cardiovascular testing Factors affecting care: Cervical cancer Social determinants of health: Former smoker History obtained from others: Consults: none [facility] Narrative: Patient was initially febrile otherwise hemodynamically stable saturating well on room air. Exam with coarse breath sounds bilateral wheezing. I considered the following differential diagnosis: COVID, RSV, flu, pneumonia, ACS, arrhythmia, anemia I obtained a broad lab and imaging workup to further elucidate the etiology of the patient's complaints ALL IMAGES (IF OBTAINED) HAVE BEEN PERSONALLY REVIEWED AND INTERPRETED BY MYSELF. I have personally reviewed the patient's chest x-ray. Chest x-ray is unremarkable for pulmonary edema, pneumothorax, pneumonia or focal cardiopulmonary abnormality. High-sensitivity troponin is negative, no evidence of myocardial ischemiax2 BMP without evidence of significant electrolyte abnormalities, no anion gap, no acute kidney injury. CBC without leukocytosis, severe anemia, no thrombocytopenia. I have personally reviewed the patient's chest x-ray. Chest x-ray is unremarkable for pulmonary edema, pneumothorax, pneumonia or focal cardiopulmonary abnormality. The synthesis of the patient's history, physical exam, labs images suggest no acute life-limiting etiology. No sign of COVID flu RSV or pneumonia. Upon reassessment patient's temperature improved. Heart rate improved. Wheezing improved. Will continue steroids and inhalers at home. Strict return precautions were discussed I considered pulmonary embolism potential etiology the patient have a low risk Wells coronary such have a low suspicion for PE. No indication for D-dimer or CTA at this time given low risk Wells score and more possible diagnosis of viral illness. The patient is appropriate for discharge home. The patient and/or family, caregivers express understanding. The patient and/or family, caregivers agrees with the plan. Shared decision making: I will have a discussion with the patient and or visitors regarding risk/benefit s of further testing or admission. They will be made aware of of the risk/benefits inherent in this decision they will be given the opportunity to voice understanding. Total critical care time today provided was at least 0 minutes. This excludes separately billable procedures. Critical care time (if documented) is secondary to the patient having high probability of clinically significant/life threatening deterioration in the patient's condition which required my urgent intervention. Impression: 1. Chest pain 2. Fever 3. Viral URI Dispo: Discharge This note was generated with [employer] dictation software. It may contain incorrect words, spelling, and punctuation that were not noted in review of the chart prior to signing. Lab Data Labs: Laboratory Results - last 24 hr 12/22/24 12/22/24 18:45 20:45 WBC 8.6 RBC 4.44 Hgb 14.0 Hct 40.6 MCV 91.4 MCH 31.5 MCHC 34.5 RDW Std Deviation 44.1 H RDW Coeff of [place] 13.1 Plt Count 272 MPV 9.1 Immature Gran % (Auto) 0.400 Neut % (Auto) 64.9 Lymph % (Auto) 24.6 [place] % (Auto) 8.4 Eos % (Auto) 1.3 Baso % (Auto) 0.4 Absolute Neuts (auto) 5.6 Absolute Lymphs (auto) 2.11 Nucleated RBC % 0 Sodium 136 Potassium 3.4 L Chloride 103 Carbon Dioxide 23.0 Anion Gap 10 BUN 12 Creatinine 0.84 Estim Creat Clear Calc 82.26 Est GFR (MDRD) Af Amer 100 Est GFR (MDRD) Non-Af 83 BUN/Creatinine Ratio 14.2 Glucose 97 Calcium 8.8 Troponin I High Sens 4 < 3 L Radiography Diagnostic Testing: Clinical Impression(s) from Imaging Studies Chest X-Ray 12/22/24 18:34 IMPRESSION: NEGATIVE CHEST. Reading Location: [facility] Discharge Plan Triage Chief Complaint: Chest Pain ED Provider: Amadou Cobos Dx/Rx/DC Orders Instructions: ED URI, Viral W/ Wheezing (Adult) Prescriptions: New prednisone 20 mg tablet 20 mg PO DAILY 5 Days Qty: 5 0RF albuterol sulfate 90 mcg/actuation aerosol powdr breath activated 1 inh inhalation Q6H PRN (Reason: shortness of breath) Qty: 1 0RF No Action omeprazole 40 mg capsule,delayed release(DR/EC) 40 mg PO DAILY Qty: 30 0RF ondansetron 4 mg tablet,disintegrating 4 mg PO Q8H PRN PRN (Reason: Nausea) Qty: 10 0RF Primary Care Provider: Care Physician,No Primary Referrals: Macario Prasad MD [Med Staff - Active Staff] - Activity Restrictions/Additional Instructions: Thank you for trusting us with your care today! Your labs images were reassuring. Specifically no sign of heart damage or bacterial pneumonia. Your COVID/RSV/flu swab was also negative. Suspect you are suffering another viral upper respiratory tract infection. Please take prednisone as prescribed. Please use prescribed inhaler as needed for wheezing or shortness of breath. Please take Tylenol (2 pills, 650 mg), ibuprofen (2 pills, 400 mg) every 6 hours as needed for pain and fever control. Please return to the emergency department if your symptoms change or worsen. Please follow with your primary care physician for further outpatient evaluation and management. Print Language: Citizen Of [place] Disposition Disposition: Home, Self Care
[2024-12-22 19:11] VITALS: BP 120/71; PULSE 90; RESP 17; TEMP 37.9; O2SAT 97
[2024-12-22] MEDS: 0.9% Normal Saline (1000mL) 1,000 ML 1000 ML IV (19:13)
[2024-12-22] MEDS: Ketorolac 15 MG/ML Vial IV (19:14)
[2024-12-22] MEDS: Acetaminophen 325 MG Tablet 650 MG PO (19:14)
[2024-12-22] MEDS: Ondansetron 4 MG/2 ML Vial IV (19:14)
[2024-12-22 19:22] LABS: Absolute Lymphocyte Count 2.11 X10^3/uL (0.83-4.51); Absolute Neutrophil Count 5.6 X10^3/uL (2.0-7.7); Basophil# 0.03 X10^3/uL; Basophil% 0.4 % (0-1); Eosinophil# 0.11 X10^3/uL; Eosinophils% 1.3 % (0-5); Hematocrit 40.6 % (37-47); Lymphocyte # 2.11 X10^3/ul (0.83-4.51); Lymphocyte % 24.6 % (19-41); Mean Corp Hgb Conc 34.5 g/dL (32-36); Mean Corpuscular Hgb 31.5 pg (27.0-32.0); Mean Corpuscular Volume 91.4 fL (81-99); Mean Platelet Vol. 9.1 fl (6.2-12.0); Monocyte# 0.72 X10^3/uL; Monocyte% 8.4 % (0-10); NRBC Flagged by Analyzer 0 % (0-5); Neutrophil # 5.57 X10^3/uL (2.7-7.7); Neutrophil % 64.9 % (47-70); Platelet Count 272 K/mm3 (150-450); RBC Distribution Width CV 13.1 % (11.6-14.6); RBC Distribution Width SD 44.1 fl (35.1-43.9); Red Blood Count 4.44 M/mm3 (4.2-5.4); White Blood Count 8.6 K/mm3 (4.4-11.0)
[2024-12-22 19:46] LABS: Anion Gap 10 (5-15); BUN 12 mg/dL (7-18); BUN/Creat Ratio 14.2 RATIO (10-20); Calcium,Total 8.8 mg/dL (8.5-10.1); Chloride 103 mmol/L (98-107); Creatinine, Serum 0.84 mg/dL (0.55-1.02); EST Glomerular Filtration Rate 83 mL/min (>60); Est Glom Filt Rate - Afr Amer 100 mL/min (>60); Estimated Creatinine Clearance 82.26 ml/min; Glucose 97 mg/dL (74-106); Potassium 3.4 mmol/L (3.5-5.1); Sodium Level 136 mmol/L (136-145); Troponin-I HS (w/2H Reflex) 4 pg/mL (3.0-54.0)
[2024-12-22 20:29] VITALS: O2SAT 95
[2024-12-22 20:30] VITALS: BP 131/60; PULSE 77; RESP 17
[2024-12-22 20:53] VITALS: PULSE 85; RESP 18
[2024-12-22] MEDS: Ipratropium/Albuterol Sulfate 3 ML AMPUL.NEB INHALATION (20:53)
[2024-12-22] MEDS: MethylPREDNISolone 125 MG/2 ML Vial IV (20:57)
[2024-12-22 21:19] LABS: Reflex Troponin-HS? (from REC) Y
[2024-12-22 21:37] LABS: Troponin-I HS < 3 pg/mL (3.0-54.0)
[2024-12-22 22:00] VITALS: PULSE 73; RESP 15; O2SAT 97
== END 2024-12-22 22:10 | disposition home or self-care (01) ==
PROVIDERS: Emergency Provider Emergency Medicine; Visit Provider Emergency Medicine
DX: R07.9 Chest pain, unspecified (principal); C53.9 Malignant neoplasm of cervix uteri, unspecified; J06.9 Acute upper respiratory infection, unspecified; R06.02 Shortness of breath; F17.200 Nicotine dependence, unspecified, uncomplicated; R50.9 Fever, unspecified
CPT/HCPCS: 71045; 80048; 84484; 85025; 87631; 93005; 94640; 96361; 96374; 96375; 99284; A4216; J2405

== ENCOUNTER 2025-04-19 00:04 | Emergency (ER) | payer SELFPAY ==
[2025-04-19 00:05] VITALS: BP 147/62; PULSE 79; RESP 16; TEMP 36.4; O2SAT 98; BMI 26.2
[2025-04-19 00:07] VITALS: BP 147/62; PULSE 79; RESP 16; TEMP 36.4; O2SAT 98
[2025-04-19 00:28] LABS: Red Blood Cells-Urine 0 SEEN /hpf (0-5)
[2025-04-19 00:30] LABS: Glucose, Dipstick Normal (Normal); Ketone-Dipstick Negative (Negative); Leukocyte Esterase-Dipstick 25 /ul (Negative); Nitrite-Dipstick Positive (Negative); Occult Blood-Urine 25 /ul (Negative); Protein-Dipstick 100 mg/dl (Negative); Specific Gravity, Urine 1.025 (1.002-1.030); Urine Clarity Clear (Clear); Urine Urobilinogen 12 mg/dl (Normal)
--- NOTE | 2025-04-19 00:37 | EX.ED.DYSGE1 ---
HPI History of Present Illness Chief Complaint: Complaint Narrative Narrative: Patient is a 34-year-old female with past medical history of cervical cancer status post hysterectomy who presented to the emergency department with a chief complaint of lower abdominal pressure and urinating frequently and having burning when urinating. He states that this has been going on for approximately 2 days and she states that she tried to take Azo did not get any relief therefore she came here to the emergency department to be evaluated. Patient denies any nausea vomiting diarrhea denies any other abdominal surgery besides her hysterectomy for cervical cancer [facility] Medical History Former smoker Cervical cancer Home Medications ?Medication ?Instructions ?Recorded ?Last Taken ?Type omeprazole 40 mg capsule,delayed 40 mg PO DAILY #30 caps 12/04/24 Unknown Rx release ondansetron 4 mg disintegrating 4 mg PO Q8H PRN PRN Nausea #10 tabs 12/04/24 Unknown Rx tablet albuterol sulfate 90 mcg/actuation 1 inh inhalation Q6H PRN shortness 12/22/24 Unknown Rx breath activated powder inhaler of breath #1 ea prednisone 20 mg tablet 20 mg PO DAILY 5 days #5 tabs 12/22/24 Unknown Rx cephalexin 500 mg capsule 500 mg PO BID 5 days #10 caps 04/19/25 Unknown Rx Allergy/AdvReac Type Severity Reaction Status Date / Time No Known Allergies Allergy Verified 04/19/25 00:07 Family History no significant family his Surgical History S/P hysterectomy Social History household members: significant other and children Smoking Status: Current every day smoker tobacco type: cigarettes ROS ROS ED ROS Narrative Constitutional: Denies fevers, chills Abdomen: Complains of lower abdominal pressure as noted above denies nausea vomit diarrhea : Complains urinary symptoms as noted above Neurological: Denies numbness, weakness, tingling Musculoskeletal: Denies back pain Skin: Denies rashes or lesions EXAM Physical Exam Narrative Exam Narrative: General: Patient lying in bed rest comfortably did not appear to be acute distress Head: Atraumatic, normocephalic Eyes: PERRL bilaterally, EOMI blood, no conjunctival injection noted Neck: Soft and supple, trachea midline Abdomen: Soft, nondistended, nontender to palpation no rebound or guarding on exam Musculoskeletal: No CVA tenderness on exam, nontender to palpation in the midline of the thoracolumbar spine Extremities: +5/5 strength noted in the bilateral upper and lower extremities Neurological: Patient follow commands knew that she was at [facility] years 2024 Skin: Warm, dry, tact no rashes or lesions noted Const Vital Signs: 04/19/25 00:05 04/19/25 00:07 04/19/25 01:18 Temperature 97.6 F L 97.6 F L Temperature Source Oral Oral Pulse Rate 79 79 68 Respiratory Rate 16 16 Blood Pressure 147/62 H 147/62 H 101/54 L Blood Pressure Mean 90 90 69 Pulse Ox 98 98 96 Oxygen Delivery Method Room Air Room Air Room Air MDM MDM MDM Narrative Medical decision making narrative: Patient is a 34-year-old female who presents to the emergency department with concern for urinary tract infection. On the differential diagnosis includes but not limited to UTI, pyelonephritis. Once workup is obtained reviewed she will be reevaluated. Patient urinalysis reviewed and showed evidence of UTI with 25 leukocyte esterase positive nitrites 25-50 white cells with 3+ bacteria. Patient's test was negative. She is given her first dose of Keflex here in the emergency department. Patient's EKG showed sinus rhythm with a rate of 71 bpm Discussed the results with the patient and she would like to go home at this point time. She was advised to follow-up with a doctor in the outpatient setting and she was referred to 1. She was advised to follow-up on the urine culture to ensure that she is on the appropriate antibiotic. A prescription for Keflex was sent to the pharmacy. She was encouraged return with worsening symptoms and concerns. She is agreeable to plan all question concerns answered she is discharged home in stable condition. Lab Data Labs: Laboratory Results - last 24 hr 04/19/25 00:20 Urine Color ORANGE Urine Clarity Clear Urine pH 5.0 Ur Specific [place] 1.025 Urine Protein 100 H Urine Glucose (UA) Normal Urine Ketones Negative Urine Occult Blood 25 H Urine Nitrite Positive H Urine Bilirubin 6 H Urine Urobilinogen 12 H Ur Leukocyte Esterase 25 H Urine RBC 0 SEEN Urine WBC 25-50 SEEN Ur Squamous Epith Cells 5-10 SEEN Urine Bacteria 3+ Coarse Granular Casts 0-5 SEEN Urine Mucus RARE Urine Test Negative Discharge Plan Triage Chief Complaint: Complaint ED Provider: Lonnie Aviles Dx/Rx/DC Orders Clinical Impression: Urinary tract infection Prescriptions: New cephalexin 500 mg capsule 500 mg PO BID 5 Days Qty: 10 0RF No Action omeprazole 40 mg capsule,delayed release(DR/EC) 40 mg PO DAILY Qty: 30 0RF ondansetron 4 mg tablet,disintegrating 4 mg PO Q8H PRN PRN (Reason: Nausea) Qty: 10 0RF prednisone 20 mg tablet 20 mg PO DAILY 5 Days Qty: 5 0RF albuterol sulfate 90 mcg/actuation aerosol powdr breath activated 1 inh inhalation Q6H PRN (Reason: shortness of breath) Qty: 1 0RF Primary Care Provider: Care Physician,No Primary Referrals: Care Physician,No Primary [Primary Care Provider] - Zoie Chung, CYTOGENETIC TECHNICIAN-C [[facility]] - Activity Restrictions/Additional Instructions: Follow-up with the doctor they referred to. Take the antibiotic that was sent to your pharmacy as prescribed. Your urine showed evidence of infection here in the emergency department. You were given your first dose of your antibiotic here. Return with worsening symptoms or any concerns Print Language: Guamanian Disposition Disposition: Home, Self Care
[2025-04-19 00:44] LABS: Bacteria 3+ /hpf (None Seen); Color, Urine ORANGE (Yellow); Mucous, Urine RARE /hpf (<or=2+); Squamous Epithelial Cells - UA 5-10 SEEN /hpf (5-10); Urine Bilirubin Dipstick 6 mg/dL (Negative); White Blood Cells 25-50 SEEN /hpf (0-5)
[2025-04-19 00:45] LABS: Coarse Granular Cast 0-5 SEEN /lpf (0-5 /lpf)
[2025-04-19 00:48] LABS: Internal QC Validated? YES +Cl - CLEAR BKGD; Pregnancy, Urine Negative Negative
--- NOTE | 2025-04-19 00:50 | EKG12_ITS ---
Test Reason : DYSRHYTHMIA Blood Pressure : */* mmHG Vent. Rate : 71 BPM Atrial Rate : 71 BPM P-R Int : 194 ms QRS Dur : 94 ms QT Int : 390 ms P-R-T Axes : 66 60 48 degrees QTcB Int : 423 ms Normal sinus rhythm Incomplete right bundle branch block Borderline ECG Confirmed by Emanuel Harrington ([id number]), editor greeting card ELISHA HAYS ([id number]) on 04/19/2025 11:17:17 AM Referred By: Confirmed By: Emanuel Harrington
--- OUTSIDE RECORDS SUMMARY | 2025-04-19 00:54 | XMS RPT_ITS | CCD ---
Author Organization [facility] Inform ion Partnership CARDIOTHORACIC ANESTHESIA TECHNICIAN [facility] Care Team Providers Care Credit Product Analyst Name Role Phone KEVIN NUBIA Unavailable Unavailable NUBIA BROWN Unavailable Unavailable NO REFERRING DR Unavailable Unavailable Ozzy CHAMBERS, Marlen To Primary Care Provider Fernando De La Rosa MD Unavailable [phone] Ingajaz Quintana CNP, Shala Unavailable Damaris CHAMBERS, Jayy Unavailable Corey Pierson RN Unavailable Unavailable [place] CHOE - DANN Abbi Unavailable [phone] [facility] Primary Care Provider Unav ailable Fernando De La Rosa MD Unavailable Ingajaz CHOE - INTERVENTIONAL TECHNOLOGIST, Shala Unavailable [phone] Damaris CHAMBERS, Jayy Unavailable Corey Pierson RN Unavailable Unavailable Brooklyn CHOE - INTERVENTIONAL TECHNOLOGIST Abbi Unavailable [phone] [facility] Primary Care Provider Unav ailable JIMBO DOIDALMIS CASEY Attending Unavail able NO FAMILY PHYSICIAN, 837 Primary Care Unavail able NO FAMILY PHYSICIAN, 837 Primary Care Unavail able JIMBO DO-FACIDALMIS VÁSQUEZ Attending Unavail able NO FAMILY PHYSICIAN, 837 Primary Care Unavail able JIMBO DO-IDALMIS KUO Attending Unavail able NO FAMILY PHYSICIAN, 837 Primary Care Unavail able SILVIA GARCIA MD Attending Unavailable NO FAMILY PHYSICIAN, 837 Primary Care Unavail able CODY WINKLER MD Attending Unavailable NO FAMILY PHYSICIAN, 837 Primary Care Unavail able ALEX MIMS DO Attending Unavailable NO FAMILY PHYSICIAN, 837 Primary Care Unavail able JIMBO DO-FACIDALMIS VÁSQUEZ Attending Unavail able NO FAMILY PHYSICIAN, 837 Primary Care Unavail able NO FAMILY PHYSICIAN, 837 Primary Care Unavail able CHARLY SARAH DO Attending Unavailable JIMBO DO-FACIDALMIS VÁSQUEZ Attending Unavail able NO FAMILY PHYSICIAN, 837 Primary Care Unavail able ALEX MIMS DO Attending Unavailable CODY WINKLER MD Attending Unavailable NO FAMILY PHYSICIAN, 837 Primary Care Unavail able JIMBO DO-FACOG, IDALMIS Rodriguez Attending Unavail able NO FAMILY PHYSICIAN, 837 Primary Care Unavail able CHARLY SARAH DO Attending Unavailable NO FAMILY PHYSICIAN, 837 Primary Care Unavail able SILVIA GARCIA MD Attending Unavailable OZZY, MARLEN Primary Care Unavailable FERNANDO DE LA ROSA Attending Unavailable OZZY, MARLEN Primary Care Unavailable FERNANDO DE LA ROSA Attending Unavailable [facility] Primary Care Unavailable FERNANDO DE LA ROSA Referring Unavailable OZZY, MARLEN Primary Care Unavailable DAMARIS, JAYY Attending Unavailable OZZY, MARLEN Primary Care Unavailable OZZY, MARLEN Primary Care Unavailable OZZY, MARLEN Primary Care Unavailable OZZY, MARLEN Primary Care Unavailable OZZY, MARLEN Primary Care Unavailable ZOZY, MARLEN Primary Care Unavailable DAMARIS, JAYY Attending Unavailable OZZY, MARLEN Primary Care Unavailable DAMARIS, JAYY Attending Unavailable OZZY, MARLEN Primary Care Unavailable DAMARIS, JAYY Attending Unavailable OZZY, MARLEN Primary Care Unavailable DAMARIS, JAYY Attending Unavailable OZZY, MARLEN Primary Care Unavailable DAMARIS, JAYY Attending Unavailable OZZY, MARLEN Primary Care Unavailable [facility] Primary Care Unavailable DAMARIS, JAYY Attending Unavailable OZZY, MARLEN Primary Care Unavailable FERNANDO DE LA ROSA Admitting Unavailable FERNANDO DE LA ROSA Attending Unavailable INGA, SHALA Attending Unavailable OZZY, MARLEN Primary Care Unavailable OZZY, MARLEN Primary Care Unavailable OZZY, MARLEN Primary Care Unavailable INGA, SHALA Referring Unavailable OZZY, MARLEN Primary Care Unavailable OZZY, MARLEN Attending Unavailable FERNANDO DE LA ROSA Referring Unavailable INGA, SHALA Referring Unavailable OZZY, MARLEN Primary Care Unavailable DAMARIS, JAYY Attending Unavailable OZZY, MARLEN Primary Care Unavailable DAMARIS, JAYY Attending Unavailable OZZY, MARLEN Primary Care Unavailable DAMARIS, JAYY Attending Unavailable OZZY, MARLEN Primary Care Unavailable DAMARIS, JAYY Attending Unavailable OZZY, MARLEN Primary Care Unavailable FERNANDO DE LA ROSA Referring Unavailable OZZY, MARLEN Primary Care Unavailable OZZY, MARLEN Primary Care Unavailable DAMARIS, JAYY Attending Unavailable OZZY, MARLEN Primary Care Unavailable DE LA ROSA, FERNANDO Referring Unavailable OZZY, MARLEN Primary Care Unavailable DAMARIS, JAYY Attending Unavailable OZZY, MARLEN Primary Care Unavailable OZZY, MARLEN Primary Care Unavailable OZZY, MARLEN Primary Care Unavailable OZZY, MARLEN Primary Care Unavailable OZZY, MARLEN Primary Care Unavailable DAMARIS, JAYY Attending Unavailable OZZY, MARLEN Primary Care Unavailable OZZY, MARLEN Primary Care Unavailable OZZY, MARLEN Primary Care Unavailable OZZY, MARLEN Primary Care Unavailable OZZY, MARLEN Primary Care Unavailable DAMARIS, JAYY Attending Unavailable OZZY, MARLEN Primary Care Unavailable OZYZ, MARLEN Primary Care Unavailable OZZY, MARLEN Primary Care Unavailable [facility] Primary Care Unavailable FERNANDO DE LA ROSA Attending Unavailable DAMARIS, JAYY Attending Unavailable OZZY, MARLEN Primary Care Unavailable OZZY, MARLEN Primary Care Unavailable SHANELL FOFANA Attending Unavailable [place], MARLEN Primary Care Unavailable DAMARIS, JAYY Attending Unavailable OZZY, MARLEN Primary Care Unavailable OZZY, MARLEN Primary Care Unavailable OZZY, MARLEN Primary Care Unavailable FERNANDO DE LA ROSA Attending Unavailable OZZY, MARLEN Primary Care Unavailable FERNANDO DE LA ROSA Attending Unavailable JAMAICA DE LA ROSAHEN Referring Unavailable OZZY, MARLEN Primary Care Unavailable FERNANDO DE LA ROSA Attending Unavailable JAMAICA DE LA ROSAHEN Referring Unavailable OZZY, MARLEN Primary Care Unavailable FERNANDO DE LA ROSA Referring Unavailable FERNANDO DE LA ROSA Attending Unavailable [place], MARLEN Primary Care Unavailable JAMAICA DE LA ROSAHEN Attending Unavailable [place], MARLEN Primary Care Unavailable DAMARIS, JAYY Referring Unavailable OZZY, MARLEN Primary Care Unavailable FERNANDO DE LA ROSA Attending Unavailable [place], MARLEN Primary Care Unavailable RJ FERNANDO Referring Unavailable RJ FERNANDO Referring Unavailable RJ FERNANDO Attending Unavailable OZZY, MARLEN Primary Care Unavailable IADLMIS COBB Referring Unavailable FERNANDO DE LA ROSA Attending Unavailable SHALA XIONG Attending Unavailable OZZY, MARLEN Primary Care Unavailable Unavailable Primary Care Provider Unavailabl e Unavailable Primary Care Provider Unavailabl e CHANG THORPE Attending Unavailab CHANG Bender Referring Unavailab CHANG Bender Referring Unavailab CHANG Bender Referring Unavailab le ALEXANDRIAICKI, CHANG BUENO Referring Unavailab le CHUI, CHANG BUENO Referring Unavailab chase FERNANDO DE LA ROSA Referring Unavailable RICH LOWE Attending Unavailable CHUI, CHANG BUENO Attending Unavailab le KUZNICKI, CHANG BUENO Referring Unavailab le KUZNICKI, CHANG BUENO Referring Unavailab le ALEXANDRIAICKI, CHANG BUENO Attending Unavailab le KUANGELOICKI, CHANG BUENO Referring Unavailab le KUZNICKI, CHANG BUENO Attending Unavailab le Finley, Ranulfo Attending Unavailable Care Physician, No Primary Primary Care Unava ilable Amadou Cobos Attending Unavailable Care Physician, No Primary Primary Care Unava ilable Care Physician, No Primary Primary Care Unava ilable Amadou Cobos Attending Unavailable Medications Current Medications Medication Drug Class(es) Dates Sig (Normalized) Sig (Original) acetaminophen 500 mg oral tablet (20 sources) Start: 12-20-2022 End: 12-30-2022 take 2 tablets by mouth every six hours as needed for pain acetaminophen (Tylenol Extra Strength) 500 MG tablet Take 2 tablets (1,000 mg) by mouth every 6 hours as needed for mild pain (1-3) for up to 10 days. 30 tablet 0 12/20/2022 12/30/2022 Active take 2 tablets by [facility] every six hours as needed acetaminophen (TYLENOL) 325 mg tablet Ta ke 650 mg by mouth every 6 hours as needed for Pain. 0 Active Comment on above: Take 650 mg by mouth every 6 hours as needed for Pain. acetaminophen 325 mg / HYDROcodone bitartrate 5 mg oral tablet (6 sources) Opioid Agonist take 1 tablet by mouth every four hours as needed for pain HYDROcodone-aceta minophen ([place]) 5-325 MG tablet Take 1 tablet by mouth every 4 hours as needed for severe pain (7-10). 0 Active apixaban 2.5 mg oral tablet (20 sources) Factor Xa Inhibitor Start: 023 End: 023 take 1 tablet by mouth twice daily apixaban (Eliquis) 2.5 MG tablet Take 1 tablet (2.5 mg) by mouth 2 times daily for 28 days. 56 tablet 0 12/20/2022 Active bisacodyl 5 mg delayed release oral tablet (20 sources) Stimulant Laxative take 1 tablet by mouth every twenty-four hours as needed for constipation bisacodyl (Dulcolax) 5 MG EC tablet Take 5 mg by mouth Daily as needed for constipation. Do not crush, chew, or split. 0 Active cephalexin 500 mg oral capsule (11 sources) Cephalosporin Antibacterial Start: 023 End: 023 take 1 capsule by mouth three times daily cephalexin (Keflex) 500 MG capsule Take 1 capsule (500 mg) by mouth 3 times daily for 7 days. 21 capsule 0 02/19/2023 02/26/2023 Active estradiol 1 mg oral tablet (16 sources) Estrogen Start: 024 End: 025 take 1 tablet by mouth once daily estradiol (ESTRACE) 1 mg tablet Take 1 tablet by mouth once daily. 30 tablet 5 04/27/2024 04/27/2025 Active Start: 04-13-2024 estradiol (NEELAM BEV-DOT) 0.075 mg/24 hr Apply 1 patch every 3 1/2 days. LICHA 24 Patch 4 04/13/2024 Active Start: 03-25-2024 End: 04-13-2024 estradiol (IOANA) 0.075 mg/2 4 hr Apply 1 Patch as directed two times a week. 8 Patch 2 04/06/2024 04/13/2024 Discontinued Start: 11-28-2023 End: 03-25-2024 estradiol (CLIMARA) 0.075 mg /24 hr Apply 1 Patch as directed one time a week. to lower abd or buttocks. LICHA 12 Patch 4 11/28/2023 03/25/2024 Discontinued Comment on above: Apply 1 Patch as dir ected one time a week. to lower abd or buttocks. LICHA HYDROmorphone hydrochloride 4 mg oral tablet (15 sources) Opioid Agonist Start: 3 End: 3 take 1 tablet by mouth every four hours as needed for pain HYDROmorphone (Dilaudid) 4 MG tablet Indications: Stage I adenocarcinoma of cervix (CMS/HCC) (HCC) , Postoperative lower abdominal pain Take 1 tablet (4 mg) by mouth every 4 hours as needed for severe pain (7-10) for up to 10 days. 60 tablet 0 01/02/2023 01/12/2023 Active Start: 12-20-2022 End: 01-02-2023 take 1 tablet by mouth every four hours as needed for pain HYDROmorphone (Dilaudid) 2 MG tablet Indications: Acute postoperative pain Take 1 tablet (2 mg) by mouth every 4 hours as needed for moderate pain (4-6) for up to 3 days. 18 tablet 0 12/26/2022 01/02/2023 Discontinued (Therapy completed) ondansetron 8 mg oral tablet (20 sources) Serotonin-3 Receptor Antagonist Start: 01-01-2023 End: 03-03-2023 ondansetron (Zofran) 8 MG tablet Indications: Stage I adenocarcinoma of cervix (CMS/HCC) (HCC) Take 1 tablet (8 mg) by mouth every 8 hours as needed for nausea or vomiting (Take 1 tablet 1 hour prior to radiation and 1 tablet 6 hours after radiation). 60 tablet 1 01/02/2023 03/03/2023 Active Start: 12-24-2022 ondansetron OD T (Zofran-ODT) 4 MG disintegrating tablet phenazopyridine hydrochloride 200 mg delayed release oral tablet (12 sources) Start: 03-17-2023 take 1 tablet by mouth three times daily phenazopyridine (Pyridium) 200 MG tablet Orally, one tablet 3 times a day until burning subsides; note urine will turn blood red with this medication; you are not bleeding. 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 Do not crush or chew. 60 tablet 11 02/11/2023 02/11/2024 Active Deehmmng-On-Ljl-Fe-FA ( VITAMIN) tab (13 sources) Start: 07-01-2017 take 1 tablet by mouth once daily Bxqdobfg-Jh-Cor-Fe-F A ( VITAMIN) tab Take 1 tablet by mouth once daily. 30 tablet 5 07/01/2017 Active Comment on above: Take 1 tablet by [facility] once daily. prochlorperazine 10 mg oral tablet (20 sources) Phenothiazine Start: 01-01-2023 End: 12-31-2023 take 1 tablet by mouth every six hours as needed for nausea prochlorperazine (Compazine) 10 MG tablet Indications: Stage I adenocarcinoma of cervix (CMS/HCC) (HCC) Take 1 tablet (10 mg) by mouth every 6 hours as needed for nausea or vomiting. 30 tablet 2 01/01/2023 12/31/2023 Active Completed/Discontinued Medications Medication Drug Class(es) Dates Sig (Normalized) Sig (Original) amoxicillin 500 mg / clavulanate 125 mg oral tablet (12 sources) Penicillin-class Antibacterial End: 01-02-2023 take 1 tablet by mouth three times daily amoxicillin-clavul anate (Augmentin) 500-125 MG tablet Take 1 tablet by mouth 3 times daily. 0 01/02/2023 Discontinued (Therapy completed) CISplatin (Platinol) 64 mg in sodium chloride 0.9 % 500 mL chemo IVPB (7 sources) Start: 03-04-2023 End: 03-04-2023 CISplatin (Platinol) 64 mg in sodium chloride 0.9 % 500 mL chemo IVPB Start: 02-18-2023 End: 02-18-2023 CISplatin (Platinol) 64 mg i n sodium chloride 0.9 % 500 mL chemo IVPB Start: 02-11-2023 End: 02-11-2023 CISplatin (Platinol) 64 mg i n sodium chloride 0.9 % 500 mL chemo IVPB dexAMETHasone (Decadron) 12 mg in sodium chloride 0.9 % 50 mL IVPB (7 sources) Start: 03-04-2023 End: 03-04-2023 dexAMETHasone (Decadron) 12 mg in sodium chloride 0.9 % 50 mL IVPB Start: 02-18-2023 End: 02-18-2023 dexAMETHasone (Decadron) 12 mg in sodium chloride 0.9 % 50 mL IVPB Start: 02-11-2023 End: 02-11-2023 dexAMETHasone (Decadron) 12 mg in sodium chloride 0.9 % 50 mL IVPB docusate sodium 50 mg / sennosides, mcfp 8.6 mg oral tablet (12 sources) Start: 12-20-2022 End: 12-20-2023 take 8.6-50 mg by mouth twice daily as needed senna-docusate (Steven-Colace) 8.6-50 MG tablet Take 1 tablet by mouth 2 times daily as needed for constipation. 30 tablet 0 12/20/2022 01/02/2023 Discontinued (Med list cleanup) F18 FDG radio-isotope injection 10.992 millicurie (1 source) Start: 03-21-2023 End: 03-21-2023 F18 FDG radio-isotope injection 10.992 millicurie fosaprepitant (Emend) 150 mg in sodium chloride 0.9 % 250 mL IVPB (7 sources) Start: 03-04-2023 End: 03-04-2023 fosaprepitant (Emend) 150 mg in sodium chloride 0.9 % 250 mL IVPB Start: 02-18-2023 End: 02-18-2023 fosaprepitant (Emend) 150 mg in sodium chloride 0.9 % 250 mL IVPB Start: 02-11-2023 End: 02-11-2023 fosaprepitant (Emend) 150 mg in sodium chloride 0.9 % 250 mL IVPB ondansetron (Zofran) 8 mg, dexAMETHasone (Decadron) 8 mg in sodium chloride 0.9 % 50 mL IVPB (1 source) Start: 02-25-2023 End: 02-25-2023 ondansetron (Zofran) 8 mg, dexAMETHasone (Decadron) 8 mg in sodium chloride 0.9 % 50 mL IVPB oxybutynin chloride 5 mg oral tablet (8 sources) Cholinergic Muscarinic Antagonist Start: 02-25-2023 End: 03-04-2023 take 1 tablet by mouth three times daily as needed for muscle spasms oxybutynin (Ditropan) 5 MG tablet Indications: Acute radiation cystitis Take 1 tablet (5 mg) by mouth 3 times daily as needed (Bladder spasm) for up to 7 days. 21 tablet 0 02/25/2023 03/04/2023 5 ml palonosetron 0.05 mg/ml prefilled syringe (7 sources) Serotonin-3 Receptor Antagonist Start: 03-04-2023 End: 03-04-2023 palonosetron (Aloxi) injection 0.25 mg Start: 02-18-2023 End: 02-18-2023 palonosetron (Aloxi) injecti on 0.25 mg Start: 02-11-2023 End: 02-11-2023 palonosetron (Aloxi) injecti on 0.25 mg Potassium Chloride / Sodium Chloride (12 sources) Start: 02-18-2023 End: 02-18-2023 potassium chloride 10 mEq in sodium chloride 0.9 % 1,000 mL IVPB Start: 02-18-2023 End: 02-18-2023 potassium chloride 10 mEq in sodium chloride 0.9 % 1,000 mL IVPB Start: 02-11-2023 End: 02-11-2023 potassium chloride 10 mEq in sodium chloride 0.9 % 1,000 mL IVPB Start: 02-11-2023 End: 02-11-2023 potassium chloride 10 mEq in sodium chloride 0.9 % 1,000 mL IVPB Sodium Chloride (10 sources) Start: 03-04-2023 End: 03-04-2023 sodium chloride 0.9 % 1,000 mL IVPB Start: 03-04-2023 End: 03-04-2023 sodium chloride 0.9 % 1,000 mL IVPB Start: 03-04-2023 End: 03-04-2023 sodium chloride 0.9 % infusi on Start: 02-25-2023 End: 02-25-2023 sodium chloride 0.9 % bolus 1,000 mL Start: 02-18-2023 End: 02-18-2023 sodium chloride 0.9 % infusi on Start: 02-11-2023 End: 02-11-2023 sodium chloride 0.9 % infusi on Problems Active Problems Problem Classification Problem Date Documented Da te Episodic/Chronic Abdominal pain (4 sources) Abdominal pain; Translations: [Unspecified abdominal pain] Onset: 12-01-2023 12-24-2022 Episodic Anxiety disorders (20 sources) Generalized anxiety disorder; Translations: [Generalized anxiety disorder] Onset: 12-19-2022 12-19-2022 Chronic Cancer of cervix (20 sources) Malignant neoplasm of endocervix; Translations: [Malignant neoplasm of endocervix] Onset: 12-17-2022 12-17-2022 Chronic Cancer of cervix (3 sources) Personal history of malignant neoplasm of cervix uteri; Translations: [Encounter for follow-up surveillance of cervical cancer] Onset: 11-27-2023 Episodic Diseases of white blood cells (1 source) Leukocytosis; Translations: [Elevated white blood cell count, unspecified] 12-24-2022 Chronic External Injury - Fall (1 source) Fall on same level from slipping, tripping and stumbling without subsequent striking against object, initial encounter; Translations: [FALL SAME LVL SLIP NO ST] Onset: 05-03-2016 External Injury - Unspecified (1 source) Activity, rough housing and horseplay; Translations: [ACTIVITY ROUGH HOUSING] Onset: 05-03-2016 Fluid and electrolyte disorders (2 sources) Dehydration; Translations: [Dehydration] 12-24-2022 Episodic Menopausal disorders (6 sources) Menopausal symptom; Translations: [Menopausal and female climacteric states] Onset: 05-07-2023 05-07-2023 Chronic Nausea and vomiting (1 source) Nausea and vomiting; Translations: [Nausea with vomiting, unspecified] 12-24-2022 Episodic Nonspecific chest pain (1 source) Chest pain, unspecified; Translations: [Chest pain, unspecified] Onset: 02-09-2025 Episodic Other aftercare (3 sources) History of malignant neoplasm of cervix; Translations: [Encounter for follow-up examination after completed treatment for malignant neoplasm] 03-22-2024 Episodic Other connective tissue disease (1 source) Pelvic floor dysfunction; Translations: [Other specified disorders of muscle] 12-29-2023 Episodic Other diseases of bladder and urethra (1 source) Spasm of bladder; Translations: [Other specified disorders of bladder] 05-12-2023 Chronic Substance-related disorders (1 source) Nicotine dependence, cigarettes, uncomplicated; Translations: [NICOTINE DEPEND CIGARETT] Onset: 05-03-2016 Chronic Superficial injury; contusion (1 source) Hematoma of abdominal wall; Translations: [Contusion of abdominal wall, initial encounter] 12-24-2022 Episodic Unclassified (1 source) Cough, unspecified; Translations: [Cough, unspecified] Onset: 09-06-2024 Past or Other Problems Problem Classification Problem Date Documented Da te Episodic/Chronic Genitourinary symptoms and ill-defined conditions (6 sources) Dysuria; Translations: [Dysuria] Onset: 04-11-202 3 Episodic Intestinal obstruction without hernia (1 source) Intussusception; Translations: [Intussusception (HCC)] Onset: 4 Episodic Other aftercare (1 source) Encounter for follow-up examination after completed treatment for malignant neoplasm; Translations: [Encounter for follow-up surveillance of cervical cancer] Onset: 4 Episodic Other connective tissue disease (2 sources) Pain in unspecified foot; Translations: [PAIN IN UNSPECIFIED FOOT] Onset: 6 Episodic Other female genital disorders (1 source) Other specified noninflammatory disorders of vagina; Translations: [Vaginal discharge] Onset: 4 Episodic Other nervous system disorders (2 sources) Other acute postprocedural pain; Translations: [Other acute postprocedural pain] Onset: 3 Episodic Other nervous system disorders (1 source) Postoperative pain ; Translations: [Other acute postprocedural pain] Episodic Other nervous system disorders (1 source) Acute postoperative pain; Translations: [Other acute postprocedural pain] Episodic Other nervous system disorders (2 sources) Lower abdominal pain; Translations: [Other acute postprocedural pain] Episodic Phlebitis; thrombophlebitis and thromboembolism (3 sources) Thrombophlebitis; Translations: [Phlebitis and thrombophlebitis of unspecified site] Onset: 3 Episodic Residual codes; unclassified (2 sources) Other specified postprocedural states; Translations: [Other specified postprocedural states] Onset: 3 Episodic Residual codes; unclassified (4 sources) Postoperative state; Translations: [Other specified postprocedural states] Episodic Sprains and strains (1 source) Unspecified sprain of left foot, initial encounter; Translations: [UNSPECIFIED SPRAIN LT FO] Onset: 6 Episodic Urinary tract infections (20 sources) Cystitis; Translations: [Cystitis, unspecified without hematuria] Onset: 9 05-07-2023 Episodic Results Test Name Value Interpretation Reference Range Facil ity 12 Lead EKGon 12-22-2024 12 Lead EKG [facility] [address] [place] [address] 12 Lead EKG 12/22/24 1814 MR#: [id number] Acct: [id number] Name: COREY PERLA Rep #: [id number] : 1990 34 From: Rory Howell MD Attending Dr: Status: DEP ER Ordering Dr: Amadou Cobos DO Date: 12/22/24 Location: ED Sex: F C Admitted: Test Reason : CP Blood Pressure : */* mmHG Vent. Rate : 89 BPM Atrial Rate : 89 BPM P-R Int : 158 ms QRS Dur : 86 ms QT Int : 326 ms P-R-T Axes : 62 81 35 degrees QTcB Int : 396 ms Normal sinus rhythm Normal ECG Confirmed by DENNIS CHAMBERS, MICHELLE ([id number]), magazine editor ANNE MARIE BARROSO ([id number]) on 12/24/2024 12:59:42 PM Referred By: Confirmed By: MICHELLE HOWELL MD 12/24/24 1259 Date Rory Howell MD CC: Dr. Amadou Cobos DO; No Primary Care Physician Signed Normal [facility] Basic Metabolic Profile (BMP )on 12-22-2024 BUN/CRE 14.2 RATIO Normal 10-20 [facility] Comment on above: Performed By: #### M 100.678 #### [facility] [address] [place], [address] CA,Total 8.8 mg/dL Normal 8.5-10.1 [facility] Comment on above: Performed By: #### M 100.678 #### [facility] [address] [place], [address] Chloride [Moles/Vol] 103 mmol/L Normal 98-107 [facility] Comment on above: Performed By: #### M 100.678 #### [facility] [address] [place], [address] CO2 [Moles/Vol] 23.0 mmol/L Normal 21.0-32.0 [facility] Comment on above: Performed By: #### M 100.678 #### [facility] [address] [place], [address] Creatinine [Mass/Vol] 0.84 mg/dL Normal 0.55-1.02 [facility] Comment on above: Result Comment: The validity of the calculated GFR GFRAA in patients over 70 years has not been determined. Clinical correlation is essential. Performed By: #### M 100.678 #### [facility] [address] [place], [address] ECRCL 82.26 ml/min Normal [facility] Comment on above: Performed By: #### M 100.678 #### [facility] [address] [place], [address] EST GFR - AA 100 mL/min Normal >60 [facility] Comment on above: Result Comment: Afri can Vincentian GFR Calc Performed By: #### M [id number] #### [facility] [address] [place], [address] GAP 10 Normal 5-15 [facility] Comment on above: Performed By: #### M [id number] #### [facility] [address] [place], [address] GFR/1.73 sq M.predicted among non-blacks MDRD (S/P/Bld) [Vol rate/Area] 83 mL/min/{1.73_m2} Normal >60 [facility] Comment on above: Result Comment: Non- GFR Calc Performed By: #### M 100.678 #### [facility] [address] [place], [address] Glucose [Mass/Vol] 97 mg/dL Normal 74-106 [facility] Comment on above: Performed By: #### M 100.678 #### [facility] [facility] [address] [place], [address] Potassium [Moles/Vol] 3.4 mmol/L Low 3.5-5.1 [facility] Comment on above: Performed By: #### M 100.678 #### [facility] [address] [place], [address] Sodium [Moles/Vol] 136 mmol/L Normal 136-145 [facility] Comment on above: Performed By: #### M 100.678 #### [facility] [address] [place], [address] Urea nitrogen [Mass/Vol] 12 mg/dL Normal 7-18 [facility] Comment on above: Performed By: #### M 100.678 #### [facility] [address] [place], [address] CBC W/Diff, Automatedon 02-11 11-2024 Absolute Lymph 2.11 X10 3/uL Normal 0.83-4.51 [facility] Comment on above: Performed By: #### M 100.678 #### [facility] [address] [place], [address] Absolute Neut 5.6 X10 3/uL Normal 2.0-7.7 [facility] Comment on above: Performed By: #### M 100.678 #### [facility] [address] [place], [address] Basophils/100 WBC (Bld) 0.4 % Normal 0-1 [facility] Comment on above: Performed By: #### M 100.678 #### [facility] [address] [place], [address] Eosinophils/100 WBC (Bld) 1.3 % Normal 0-5 [facility] Comment on above: Performed By: #### M 100.678 #### [facility] [address] [place], [address] Erythrocyte distribution width (RBC) [Ratio] 13.1 % Normal 11.6-14.6 [facility] Comment on above: Performed By: #### M 100.678 #### [facility] [address] [place], [address] Hematocrit (Bld) [Volume fraction] 40.6 % Normal 37-47 [facility] Comment on above: Performed By: #### M 100.678 #### [facility] [address] [place], [address] Hemoglobin (Bld) [Mass/Vol] 14.0 g/dL Normal 12.0-15.0 [facility] Comment on above: Performed By: #### M 100.678 #### [facility] [address] [place], [address] IG% 0.400 Normal 0.0-0.9 [facility] Comment on above: Result Comment: IG% - Immature Granulocytes (promyelocytes, myelocytes and metamyelocytes) > 1% indicates that a LEFT SHIFT is Present. Performed By: #### M 100.678 #### [facility] [address] [place], [address] Lymphocytes/100 WBC (Bld) 24.6 % Normal 19-41 [facility] Comment on above: Performed By: #### M 100.678 #### [facility] [address] [place], [address] MCH (RBC) [Entitic mass] 31.5 pg Normal 27.0-32.0 [facility] Comment on above: Performed By: #### M 100.678 #### [facility] [address] [place], [address] MCHC (RBC) [Mass/Vol] 34.5 g/dL Normal 32-36 [facility] Comment on above: Performed By: #### M 100.678 #### [facility] [address] [place], [address] MCV (RBC) [Entitic vol] 91.4 fL Normal 81-99 [facility] Comment on above: Performed By: #### M 100.678 #### [facility] [address] [place], [address] Monocytes/100 WBC (Bld) 8.4 % Normal 0-10 [facility] Comment on above: Performed By: #### M 100.678 #### [facility] [address] [place], [address] Neutrophils/100 WBC (Bld) 64.9 % Normal 47-70 [facility] Comment on above: Performed By: #### M 100.8 #### [facility] [address] [place], [address] Nucleated RBC (Bld) [#/Vol] 0 10*3/uL Normal 0-5 [facility] Comment on above: Performed By: #### M 100.678 #### [facility] [address] [place], [address] Platelet mean volume (Bld) [Entitic vol] 9.1 fL Normal 6.2-12.0 [facility] Comment on above: Performed By: #### M 100.678 #### [facility] [address] [place], [address] Platelets (Bld) [#/Vol] 272 10*3/uL Normal 150-450 [facility] Comment on above: Performed By: #### M 100.678 #### [facility] [address] [place], [address] RBC (Bld) [#/Vol] 4.44 10*6/uL Normal 4.2-5.4 [facility] Comment on above: Performed By: #### M 100. #### [facility] [address] [place], [address] RDW SD 44.1 fl High 35.1-43.9 [facility] Comment on above: Performed By: #### M 100.678 #### [facility] [address] [place], [address] WBC (Bld) [#/Vol] 8.6 10*3/uL Normal 4.4-11.0 [facility] Comment on above: Performed By: #### M 100.678 #### [facility] [address] [place], [address] Chest 1 View (Portable)on Chest 1 View (Portable) [facility] Imaging Services [address] [place], [place] [address] Chest 1 View (Portable) MR#: [id number] Acct: [id number] Name: COREY PERLA Rep #: [id number] : 1990 F 34 From: Richelle Lobo nd, MD PCP: Care Physician,No Primary Status: REG ER Study: Chest 1 View (Portable) Date of Exam: 12/22/24 Exam# [id number] Ordering Dr: Amadou Cobos DO PROCEDURE: CHEST 1 VIEW (PORTABLE) REASON FOR EXAM: 34-year-old female, cough, shortness of breath, chest pain, fevers, nausea and diarrhea x5 days. TECHNIQUE: Frontal view of the chest. COMPARISON: Chest radiograph 08/10/2024. FINDINGS: The heart size is normal. The lungs are clear. The bones are unremarkable. RAD/Chest 1 View (Portable) IMPRESSION: NEGATIVE CHEST. Reading Location: [id number] CC: Dr. Amadou Cobos DO; No Primary Care Physician Yard Pilot: Signed Normal [facility] Emergency Department Summary on 12-22-2024 Emergency Department Summary [facility] Medical Records Department [address] [facility] [place] [address] Emergency Department Summary 12/22/24 MR#: [id number] Acct: [id number] Name: COREY PERLA Rep #: [id number] : 1990 34 From: Amadou Cobos DO PCP: Care Physician,No Primary Status:REG ER Location: ED HPI History of Present Illness Chief Complaint: Chest Pain PFSH PFSH Medical History Former smoker Cervical cancer Home Medications ???Medication ???Instructions ???Recorded ???Last Taken ???Type omeprazole 40 mg capsule,delayed 40 mg PO DAILY #30 caps 12/04/24 U nknown Rx release ondansetron 4 mg disintegrating 4 mg PO Q8H PRN PRN Nausea #10 tab s 12/04/24 Unknown Rx tablet albuterol sulfate 90 mcg/actuation 1 inh inhalation Q6H PRN shortne ss 12/22/24 Unknown Rx breath activated powder inhaler of breath #1 ea prednisone 20 mg tablet 20 mg PO DAILY 5 days #5 tabs 12/11 01/04 Unknown Rx Allergy/AdvReac Type Severity Reaction Status Date / Time No Known Allergies Allergy Verified 12/22/24 18:05 Surgical History S/P hysterectomy Social History (Updated 08/10/24 @ 08:[address] Ranulfo Finley MD) household members: significant other and children Smoking Status: Light Smoker (<10/day) EXAM Physical Exam Const Vital Signs: 12/22/24 18:05 12/22/24 19:11 12/22/24 19:12 Temperature 101.2 F H 100.3 F H Temperature Source Oral Oral Pulse Rate 100 90 Respiratory Rate 15 17 Respiratory Pattern Blood Pressure 116/78 120/71 Blood Pressure Mean 90 87 Pulse Ox 98 97 Oxygen Delivery Method Room Air Room Air Room Air 12/22/24 20:29 12/22/24 20:30 12/22/24 20:53 Temperature Temperature Source Pulse Rate 77 85 Respiratory Rate 17 18 Respiratory Pattern Normal Blood Pressure 131/60 H Blood Pressure Mean 74 Pulse Ox 95 Oxygen Delivery Method MDM MDM MDM Narrative Medical decision making narrative: HISTORY OF PRESENT ILLNESS: 34-year-old female presents with chest pain, cough, shortness breath, fever, nausea and diarrhea for 5 days. She states symptoms have been ongoing. They are constant. Her pain is worse with coughing but not exertional. It is worse with a deep breath. Chest pain described as sharp. It is not pressure-like. It is not ripping or tearing denies sick contacts. Denies leg swelling. Denies bleeding diathesis. No she status post hysterectomy does not think she is . Denies vomiting. The patient denies recent surgery in the last 4 weeks or immobilization in the last 3 days, denies previous diagnosis of DVT or PE, hemoptysis, unilateral leg swelling or malignancy with treatment the last 6 months or palliative. No estrogen use noted. Patient denies sudden onset of pain, no tearing sensation, no migratory symptoms, no new numbness, weakness or loss of sensation. Patient denies family history or personal history of Connective tissue disorders (Marfan's Syndrome, Palmira Danlos etc). REVIEW OF SYSTEMS: Pertinent positives: As per HPI Pertinent negatives: Vomiting PHYSICAL EXAM: Nursing triage notes reviewed, Vital signs reviewed Constitutional: please see mdm HENT: MMM Eyes: Pupils equal round and reactive to light, Extraocular muscles intact Neck: No stridor, no JVD, full neck ROM Lungs: Coarse breath sounds, bilateral wheezing no increased work of breathing, no conversational dyspnea, no accessory muscle use, no nasal flaring. No respiratory distress noted Heart: Regular rate and rhythm, No murmurs, No rubs and No gallops, 2+ distal pulses (radial, femoral, posterior tibial) in all extremities Abdomen: Soft, there is no tenderness, rigidity, rebound or guarding, no obvious peritoneal signs, no palpable pulsatile abdominal masses, no auscultated abdominal bruit : No CVAT Extremities: No edema Neuro: No new focal neurological deficits, cranial nerves II through XII intact, 5/5 strength in all present extremities. Intact sensation to light touch in all present extremities, 2+ reflexes bilateral patella tendons. Skin: No rash or lesions noted MEDICAL DECISION MAKING: Chief Complaint: Chest pain External records reviewed: Reviewed prior cardiovascular testing Factors affecting care: Cervical cancer Social determinants of health: Former smoker History obtained from others: Consults: none [facility] Narrative: Patient was initially febrile otherwise hemodynamically stable saturating well on room air. Exam with coarse breath sounds bilateral wheezing. I considered the following differential diagnosis: COVID, RSV, flu, pneumonia, ACS, arrhythmia, anemia I obtained a broad lab and imaging workup to further elucidate t (more content not included)... Normal [facility] L501.4020on 12-22-2024 TROPONIN-I HS < 3 Low 3.0-54.0 [facility] Comment on above: Result Comment: Plea se Note: New Test Units and Gender Specific Reference Ranges. For more information see Policy Stat Procedure [facility] High Sensitivity Troponin (TNIH) and attachments. Performed By: #### M 100.678 #### [facility] [address] [place], [address] L501.5425on 12-22-2024 TROPONIN-I HS 4 pg/mL Normal 3.0-54.0 [facility] Comment on above: Order Comment: 1Y Result Comment: Plea se Note: New Test Units and Gender Specific Reference Ranges. For more information see Policy Stat Procedure [place] High Sensitivity Troponin (TNIH) and attachments. Performed By: #### M 100.678 #### [facility] [address] [place], [address] M100.678on 12-22-2024 M100.678 SARS-CoV-2 (COVID 19 ) Negative INFLUENZA A Negative INFLUENZA B Negative RSV PCR Negative Normal [facility] Comment on above: Performed By: #### M 100.678 #### [facility] [address] [place], [address] Abdomen/Pelvis W IV Cont ONL Yon 12-04-2024 Abdomen/Pelvis W IV Cont ONLY [facility] Imaging Services [address] [place] [address] Abdomen/Pelvis W IV Cont ONLY MR#: [id number] Acct: [id number] Name: COREY PERLA Rep #: [id number] : 1990 F 34 From: Jaylen barbosa DO PCP: Care Physician,No Primary Status: REG ER Study: Abdomen/Pelvis W IV Cont ONLY Date of Exam: Exam# [id number] Ordering Dr: Amadou Cobos DO [id number] EXAM: CT ABDOMEN AND PELVIS WITH INTRAVENOUS CONTRAST CLINICAL INDICATION: Abdominal pain, diffuse, nonlocalized TECHNIQUE: Helically acquired images were obtained of the abdomen and pelvis with intravenous contrast. This CT exam was performed using one or more of the following dose reduction techniques: automated exposure control, adjustment of the mA and/or kV according to patient size, and/or use of iterative reconstruction technique. CONTRAST: IV 100mL Isovue-370 COMPARISON: 12/24/2022 FINDINGS: LOWER THORAX: No significant abnormality. Lung bases are clear. No cardiomegaly. No significant pericardial effusion. ABDOMEN: LIVER: No significant abnormality. Homogeneous. No focal mass. GALLBLADDER AND BILE DUCTS: No significant abnormality. No calcified gallstones. No gallbladder distention or wall edema. No intra- or extrahepatic biliary ductal dilation. PANCREAS: No significant abnormality. No focal cystic or solid mass. SPLEEN: No significant abnormality. Normal size without focal cystic or solid mass. ADRENALS: No significant abnormality. No nodules. KIDNEYS AND URETERS: Punctate left lower pole calyceal stones and punctate right interpolar region calyceal stone. No hydronephrosis or ureterolithiasis. STOMACH AND BOWEL: No significant abnormality. No stomach or bowel distention. No focal inflammatory change. PELVIS: APPENDIX: Normal appendix in the right lower quadrant. BLADDER: No significant abnormality. REPRODUCTIVE: Status post hysterectomy. ABDOMEN and PELVIS: INTRAPERITONEAL SPACE: No significant abnormality. No ascites or other fluid collection. No free air. BONES/JOINTS: No significant abnormality. No suspicious lytic or blastic abnormality. SOFT TISSUES: Fat-containing umbilical hernia. VASCULATURE: No significant abnormality. Abdominal aorta is non-dilated. LYMPH NODES: No significant abnormality. No enlarged lymph nodes. CT/Abdomen/Pelvis W IV Cont ONLY IMPRESSION: 1. Punctate left lower pole calyceal stones and punctate right interpolar region calyceal stone. No hydronephrosis or ureterolithiasis. 2. Status post hysterectomy. 3. No additional acute pathology. Electronically Signed: Jaylen Thomas DO at 22:15 EST , CC: Dr. Amadou Cobos, DO; No Primary Care Physician Yard Pilot: Signed Normal [facility] Basic Metabolic Profile (BMP )on 12-04-2024 BUN/CRE 14.8 RATIO Normal 10-20 [facility] Comment on above: Performed By: #### L 501.2450, L100.0100, L500.2500, L500.3400 #### [facility] [address] [place], [address] CA,Total 9.4 mg/dL Normal 8.5-10.1 [facility] Comment on above: Performed By: #### L 501.2450, L100.0100, L500.2500, L500.3400 #### [facility] [address] [place], [address] Chloride [Moles/Vol] 108 mmol/L High 98-107 [facility] Comment on above: Performed By: #### L 501.2450, L100.0100, L500.2500, L500.3400 #### [facility] [address] [place], [address] CO2 [Moles/Vol] 24.0 mmol/L Normal 21.0-32.0 [facility] Comment on above: Performed By: #### L 501.2450, L100.0100, L500.2500, L500.3400 #### [facility] [address] [place], [address] Creatinine [Mass/Vol] 0.94 mg/dL Normal 0.55-1.02 [facility] Comment on above: Result Comment: The validity of the calculated GFR GFRAA in patients over 70 years has not been determined. Clinical correlation is essential. Performed By: #### L 501.2450, L100.0100, L500.2500, L500.3400 #### [facility] [address] [place], [address] ECRCL 73.51 ml/min Normal [facility] Comment on above: Performed By: #### L 501.2450, L100.0100, L500.2500, L500.3400 #### [facility] [address] [place], [address] EST GFR - AA 88 mL/min Normal >60 [facility] Comment on above: Result Comment: Afri can Vincentian GFR Calc Performed By: #### L 501.2450, L100.0100, L500.2500, L500.3400 #### [facility] [address] [place], [address] GAP 6 Normal 5-15 [facility] Comment on above: Performed By: #### L 501.2450, L100.0100, L500.2500, L500.3400 #### [facility] [address] [place], [address] GFR/1.73 sq M.predicted among non-blacks MDRD (S/P/Bld) [Vol rate/Area] 73 mL/min/{1.73_m2} Normal >60 [facility] Comment on above: Result Comment: Non- GFR Calc Performed By: #### L 501.2450, L100.0100, L500.2500, L500.3400 #### [facility] [address] [place], [address] Glucose [Mass/Vol] 103 mg/dL Normal 74-106 [facility] Comment on above: Result Comment: Fast ing Glucose result from 100 to 125 mg/dL suggests IMPAIRED HOMEOSTASIS per A.D.A. criteria. Performed By: #### L 501.2450, L100.0100, L500.2500, L500.3400 #### [facility] [address] [place], [address] Potassium [Moles/Vol] 3.6 mmol/L Normal 3.5-5.1 [facility] Comment on above: Performed By: #### L 501.2450, L100.0100, L500.2500, L500.3400 #### [facility] [address] [place], [address] Sodium [Moles/Vol] 138 mmol/L Normal 136-145 [facility] Comment on above: Performed By: #### L 501.2450, L100.0100, L500.2500, L500.3400 #### [facility] [address] [place], [address] Urea nitrogen [Mass/Vol] 14 mg/dL Normal 7-18 [facility] Comment on above: Performed By: #### L 501.2450, L100.0100, L500.2500, L500.3400 #### [facility] [address] [place], [address] CBC W/Diff, Automatedon 11-11-2024 Absolute Lymph 1.68 X10 3/uL Normal 0.83-4.51 [facility] Comment on above: Performed By: #### L 501.2450, L100.0100, L500.2500, L500.3400 #### [facility] [address] [place], [address] Absolute Neut 11.3 X10 3/uL High 2.0-7.7 [facility] Comment on above: Performed By: #### L 501.2450, L100.0100, L500.2500, L500.3400 #### [facility] [address] [place], [address] Basophils/100 WBC (Bld) 0.5 % Normal 0-1 [facility] Comment on above: Performed By: #### L 501.2450, L100.0100, L500.2500, L500.3400 #### [facility] [address] [place], [address] Eosinophils/100 WBC (Bld) 3.2 % Normal 0-5 [facility] Comment on above: Performed By: #### L 501.2450, L100.0100, L500.2500, L500.3400 #### [facility] [address] [place], [address] Erythrocyte distribution width (RBC) [Ratio] 13.0 % Normal 11.6-14.6 [facility] Comment on above: Performed By: #### L 501.2450, L100.0100, L500.2500, L500.3400 #### [facility] [address] [place], [address] Hematocrit (Bld) [Volume fraction] 42.3 % Normal 37-47 [facility] Comment on above: Performed By: #### L 501.2450, L100.0100, L500.2500, L500.3400 #### [facility] [address] [place], [address] Hemoglobin (Bld) [Mass/Vol] 14.6 g/dL Normal 12.0-15.0 [facility] Comment on above: Performed By: #### L 501.2450, L100.0100, L500.2500, L500.3400 #### [facility] [address] [place], [address] IG% 0.400 Normal 0.0-0.9 [facility] Comment on above: Result Comment: IG% - Immature Granulocytes (promyelocytes, myelocytes and metamyelocytes) > 1% indicates that a LEFT SHIFT is Present. Performed By: #### L 501.2450, L100.0100, L500.2500, L500.3400 #### [facility] [address] [place], [address] Lymphocytes/100 WBC (Bld) 11.8 % Low 19-41 [facility] Comment on above: Performed By: #### L 501.2450, L100.0100, L500.2500, L500.3400 #### [facility] [address] [place], [address] MCH (RBC) [Entitic mass] 31.6 pg Normal 27.0-32.0 [facility] Comment on above: Performed By: #### L 501.2450, L100.0100, L500.2500, L500.3400 #### [facility] [address] [place], [address] MCHC (RBC) [Mass/Vol] 34.5 g/dL Normal 32-36 [facility] Comment on above: Performed By: #### L 501.2450, L100.0100, L500.2500, L500.3400 #### [facility] [address] [place], [address] MCV (RBC) [Entitic vol] 91.6 fL Normal 81-99 [facility] Comment on above: Performed By: #### L 501.2450, L100.0100, L500.2500, L500.3400 #### [facility] [address] [place], [address] Monocytes/100 WBC (Bld) 4.6 % Normal 0-10 [facility] Comment on above: Performed By: #### L 501.2450, L100.0100, L500.2500, L500.3400 #### [facility] [address] [place], [address] Neutrophils/100 WBC (Bld) 79.5 % High 47-70 [facility] Comment on above: Performed By: #### L 501.2450, L100.0100, L500.2500, L500.3400 #### [facility] [address] [place], [address] Nucleated RBC (Bld) [#/Vol] 0 10*3/uL Normal 0-5 [facility] Comment on above: Performed By: #### L 501.2450, L100.0100, L500.2500, L500.3400 #### [facility] [address] [place], [address] Platelet mean volume (Bld) [Entitic vol] 8.7 fL Normal 6.2-12.0 [facility] Comment on above: Performed By: #### L 501.2450, L100.0100, L500.2500, L500.3400 #### [facility] [address] [place], [address] Platelets (Bld) [#/Vol] 382 10*3/uL Normal 150-450 [facility] Comment on above: Performed By: #### L 501.2450, L100.0100, L500.2500, L500.3400 #### [facility] [address] [place], [address] RBC (Bld) [#/Vol] 4.62 10*6/uL Normal 4.2-5.4 [facility] Comment on above: Performed By: #### L 501.2450, L100.0100, L500.2500, L500.3400 #### [facility] [address] [place], [address] RDW SD 43.4 fl Normal 35.1-43.9 [facility] Comment on above: Performed By: #### L 501.2450, L100.0100, L500.2500, L500.3400 #### [facility] [address] [place], [address] WBC (Bld) [#/Vol] 14.3 10*3/uL High 4.4-11.0 [facility] Comment on above: Performed By: #### L 501.2450, L100.0100, L500.2500, L500.3400 #### [facility] [address] [place], [address] Emergency Department Summary on 12-04-2024 Emergency Department Summary [facility] Medical Records Department [address] [place] [address] Emergency Department Summary 12/04/24 MR#: [id number] Acct: [id number] Name: COREY PERLA Rep #: [id number] : 1990 34 From: Amadou Cobos DO PCP: Care Physician,No Primary Status:DEP ER Location: ED HPI History of Present Illness Chief Complaint: Abd Pain PFSH PFSH Medical History Former smoker Cervical cancer Home Medications ???Medication ???Instructions ???Recorded ???Last Taken ???Type omeprazole 40 mg capsule,delayed 40 mg PO DAILY #30 caps 12/04/24 Unknown Rx release ondansetron 4 mg disintegrating 4 mg PO Q8H PRN PRN Nausea #10 tabs 12/04/24 Unknown Rx tablet Allergy/AdvReac Type Severity Reaction Status Date / Time No Known Allergies Allergy Verified 12/04/24 19:01 Surgical History S/P hysterectomy Social History (Updated 08/10/24 @ 08:[address] Ranulfo Finley MD) household members: significant other and children Smoking Status: Light Smoker (<10/day) EXAM Physical Exam Const Vital Signs: 12/04/24 19:00 12/04/24 21:00 12/04/24 21:24 Temperature 97.8 F Temperature Source Oral Pulse Rate 95 70 79 Respiratory Rate 16 15 18 Blood Pressure 119/75 89/60 L 103/60 Blood Pressure Mean 89 69 74 Pulse Ox 99 98 98 Oxygen Delivery Method Room Air Room Air 12/04/24 22:31 Temperature 98.0 F Temperature Source Pulse Rate 70 Respiratory Rate 18 Blood Pressure 94/65 Blood Pressure Mean 74 Pulse Ox 100 Oxygen Delivery Method MDM MDM MDM Narrative Medical decision making narrative: HISTORY OF PRESENT ILLNESS: 34-year-old female notes generalized abdominal pain started today. She further states this began today just prior to arrival. Notes diffuse pain. Denies vomiting. Notes constipation but no diarrhea. Denies urinary complaints. Denies vaginal bleeding or discharge. Notes history of a radical hysterectomy REVIEW OF SYSTEMS: Pertinent positives: Abdominal pain Pertinent negatives: Fever, vomiting PHYSICAL EXAM: Nursing triage notes reviewed, Vital signs reviewed Constitutional: please see mdm HENT: MMM Eyes: Pupils equal round and reactive to light, Extraocular muscles intact Neck: No stridor, no JVD, full neck ROM Lungs: Clear to auscultation, No wheezing or rales. No increased work of breathing, no conversational dyspnea, no accessory muscle use, no nasal flaring. No respiratory distress noted Heart: Regular rate and rhythm, No murmurs, No rubs and No gallops, 2+ distal pulses (radial, femoral, posterior tibial) in all extremities Abdomen: Soft, diffuse tenderness but no rigidity, rebound or guarding, no obvious peritoneal signs, no palpable pulsatile abdominal masses, no auscultated abdominal bruit : No CVAT Extremities: No edema Neuro: No new focal neurological deficits, cranial nerves II through XII intact, 5/5 strength in all present extremities. Intact sensation to light touch in all present extremities, 2+ reflexes bilateral patella tendons. Skin: No rash or lesions noted MEDICAL DECISION MAKING: Chief Complaint: Abdominal pain External records reviewed: CT scan abdomen pelvis from 2022 showed intra-abdominal hematoma Factors affecting care: cervical cancer Social determinants of health: History of smoking History obtained from others: Consults: none. [facility] Narrative: Patient was initially hemodynamically stable, afebrile and nontoxic-appearing. Diffuse abdominal tenderness I considered the following differential diagnosis: AAA, small bowel obstruction, abdominal perforation, appendicitis, pancreatitis, hepatobiliary pathology (acute cholecystitis), mesenteric ischemia, pathology (ie nephrolithiasis, pyelonephritis). I obtained a broad lab and imaging workup to further elucidate etiology of patient's complaints. Initially resuscitated patient 1 L normal saline, 4 mg IV Zofran and 15 mg of IV Toradol ALL IMAGES (IF OBTAINED) HAVE BEEN PERSONALLY REVIEWED AND INTERPRETED BY MYSELF. CT scan shows no evidence of obvious intra-abdominal pathology including AAA, obstruction, perforatio Lipase is wnl indicating no pancreatic inflammation. LFTs show no evidence of hepatobiliary pathology. Urinalysis shows no evidence of urinary inflammation suggestive of UTI CBC showed leukocytosis concerning for systemic inflammation however this is downtrending from prior study, no anemia or thrombocytopenia noted BMP without significant electrolyte abnormalities, no sign of endorgan hypoperfusion or metabolic acidosis with a normal anion gap and bicarb respectively, no IDA Upon reevaluation patient continued pain she rece (more content not included)... Normal [facility] Lipaseon 12-04-2024 Lipase [Catalytic activity/Vol] 39 U/L Normal 13-75 [facility] Comment on above: Result Comment: Talisha fuentes note: LIPASE revised reference range effective 23. New Lipase methodology. Expected to produce lower values than the previous assay method. NEW Reference Range: 13 - 75 U/L Performed By: #### M 100.678 #### [facility] [address] [place], [address] Liver Profileon 12-04-2024 Albumin [Mass/Vol] 4.0 g/dL Normal 3.2-5.0 [facility] Comment on above: Performed By: #### L 501.2450, L100.0100, L500.2500, L500.3400 #### [facility] [address] [place], [address] ALK P 132 U/L High 45-117 [facility] Comment on above: Performed By: #### L 501.2450, L100.0100, L500.2500, L500.3400 #### [facility] [address] [place], [address] ALT [Catalytic activity/Vol] 27 U/L Normal 13-56 [facility] Comment on above: Performed By: #### L 501.2450, L100.0100, L500.2500, L500.3400 #### [facility] [address] [place], [address] AST [Catalytic activity/Vol] 22 U/L Normal 15-37 [facility] Comment on above: Performed By: #### L 501.2450, L100.0100, L500.2500, L500.3400 #### [facility] [address] [place], [address] Bilirubin [Mass/Vol] 0.30 mg/dL Normal 0.20-1.00 [facility] Comment on above: Result Comment: For patients on eltrombopag therapy, use of Dimension Thornton TBIL is not recommended. Performed By: #### L 501.2450, L100.0100, L500.2500, L500.3400 #### [facility] [address] [place], [address] Bilirubin.direct [Mass/Vol] 0.09 mg/dL Normal 0.00-0.30 [facility] Comment on above: Performed By: #### L 501.2450, L100.0100, L500.2500, L500.3400 #### [facility] [address] [place], [address] Globulin (S) [Mass/Vol] 3.7 g/dL Normal 2.2-4.2 [facility] Comment on above: Performed By: #### L 501.2450, L100.0100, L500.2500, L500.3400 #### [facility] [address] [place], [address] T PROT 7.7 g/dL Normal 6.4-8.2 [facility] Comment on above: Performed By: #### L 501.2450, L100.0100, L500.2500, L500.3400 #### [facility] [address] [place], [address] Urinalysis, Completeon 12-04 EPI,SQUAMOUS 0-5 SEEN Normal 5-10 [facility] Comment on above: Order Comment: CLEAN CATCH Performed By: #### L 400.0001 #### [facility] [address] [place], [address] WBC 0-5 SEEN Normal 0-5 [facility] Comment on above: Order Comment: CLEAN CATCH Performed By: #### L 400.0001 #### [facility] [address] [place], [address] BACTERIA 0 SEEN Normal None Seen [facility] Comment on above: Order Comment: CLEAN CATCH Performed By: #### L 400.0001 #### [facility] [address] [place], [address] Mucus Ql (Urine sed) 0 SEEN Normal [facility] Comment on above: Order Comment: CLEAN CATCH Performed By: #### L 400.0001 #### [facility] [address] [place], [address] RBC 0 SEEN Normal 0-5 [facility] Comment on above: Order Comment: CLEAN CATCH Performed By: #### L 400.0001 #### [facility] [address] [place], [address] Chest PA and Lateralon 08-10 Chest PA and Lateral [facility] Imaging Services [address] [address] Chest PA and Lateral MR#: [id number] Acct: [id number] Name: COREY PERLA Rep #: [id number] : 1990 F 33 From: Maxi daniel MD PCP: Care Physician,No Primary Status: [facility] ER Study: Chest PA and Lateral Date of Exam: 08/10/24 Exam# [id number] Ordering Dr: Ranulfo Finley MD [id number] STUDY: X-RAY CHEST REASON FOR EXAM: Female, 33 years old. Productive cough, wheezing, fever TECHNIQUE: PA and lateral views of the chest. COMPARISON: None. FINDINGS: The lungs are clear and expanded. There is no demonstrated pleural abnormality. Normal size heart. Normal mediastinum and eran. Normal visualized pulmonary arteries. Normal visualized aortic arch and descending thoracic aorta. Normal visualized thoracic spine. Normal visualized ribs, clavicles, and shoulders. There is no demonstrated abnormality of the visualized soft tissue structures of the upper abdomen. RAD/Chest PA and Lateral IMPRESSION: Normal x-ray examination of the chest. Electronically Signed: Maxi Byrne MD at 9:15 EDT , CC: Dr. Ranulfo Finley MD; No Primary Care Physician Yard Pilot: Signed Normal [facility] Emergency Department Summary on 08-10-2024 Emergency Department Summary [facility] Medical Records Department [address] [place] [id number] Emergency Department Summary 08/10/24 MR#: [id number] Acct: [id number] Name: COREY PERLA Rep #: [id number] : 1990 33 From: Ranulfo Finley MD PCP: Care Physician,No Primary Status:REG ER Location: ED HPI History of Present Illness Chief Complaint: Cough Detail of Chief Complaint: Cough that started 5 to 6 days ago and is now productive Informant: patient Onset/Context/Timing Onset: Days Context: Sudden Onset Timing: Continuous and Waxes and wanes Quality: Upper respiratory symptoms started 5 to 6 days ago Location: Upper respiratory Current Severity: Mild Maximum Severity: Moderate Worsened by: Nothing specific Relieved by: Nothing Associated Symptoms Associated Symptoms: Subjective fever, myalgias arthralgias, exposure to multiple family numbers Narrative Narrative: Patient is a 33-year-old woman. She is a smoker. She presents smokes 1/2 pack/day. 5 years ago she smoked 2 packs/day. She presents with cough that started 5 to 6 days ago. Cough has become productive over the past 2 days. She states it is thick and green to yellow in color. She does endorse nasal congestion. She denies headache, photophobia neck pain or neck stiffness. Denies ear pain or ear drainage. She does complain of discomfort in her chest when she coughs. She denies dyspnea or dyspnea with activity. She does admit to wheezing. She has no history of asthma or COPD. She denies abdominal pain, nausea, vomiting or diarrhea. She has not noted a rash. She does endorse myalgias arthralgias. She informing that several family with him and recently diagnosed with pneumonia. Prior similar symptoms: Yes Recent Illness/Hospitalizati on: No PFSH PFSH Medical History Former smoker Cervical cancer Allergy/AdvReac Type Severity Reaction Status Date / Time No Known Allergies Allergy Verified 08/10/24 08:12 Surgical History S/P hysterectomy Social History (Updated 08/10/24 @ 08:[address] Ranulfo Finley MD) household members: significant other and children Smoking Status: Light Smoker (<10/day) ROS ROS ED Constitutional Constitutional ED: Reports fever(s) and subjective; Denies chills or sweats Eyes Eyes: Denies blurry vision or change in vision ENT ENT ED: Reports rhinorrhea, sore throat and other Details: Patient does endorse hoarse voice. This started 2 to 3 days ago. ; Denies ear pain Cardiovascular Cardiovascular: Reports chest pain; Denies orthopnea, palpitations, paroxysmal nocturnal dyspnea or racing heartbeat Respiratory/Chest Respiratory/Chest: Reports cough and sputum; Denies dyspnea, dyspnea on exertion, orthopnea or paroxysmal nocturnal dyspnea Gastrointestinal Gastrointestinal: Denies abdominal pain, diarrhea, nausea or vomiting Genitourinary Genitourinary ED: Denies dysuria, hematuria or urinary frequency Musculoskeletal Musculoskeletal: Reports arthralgias and myalgias Integumentary Denies rash Neurologic Neurologic: Denies headache(s) or paresthesias Endocrine Endocrinology: Denies cold intolerance or heat intolerance Hematologic/Lymphatic Hematologic/Lymphatic : Reports systems reviewed and no addt'l complaints, except as documented EXAM Physical Exam Const Vital Signs: 08/10/24 08:12 08/10/24 08:41 Temperature 99 F Temperature Source Temporal Pulse Rate 83 Respiratory Rate 14 Respiratory Effort Short of Breath Respiratory Depth Normal Respiratory Pattern Normal Blood Pressure 120/77 Blood Pressure Mean 91 Pulse Ox 97 Oxygen Delivery Method Room Air Positive well nourished and well developed Constitutional Narrative: Patient appears ill. She does not appear toxic. General Appearance ED: well developed; Negative for cyanotic, diaphoretic, NAD or pallor HEENT Reports dry mucous membranes HEENT Narrative: Head is atraumatic no cephalic. Ears normal. Nares patent with slight discharge. Posterior pharynx is normal. Mouth ED: Yes dry mucous membranes Mouth: dry mucous membranes Eyes PERRL and EOMs intact bilaterally General Eye ED: Negative for pale conjunctiva or scleral icterus Neck no lymphadenopathy, supple and no JVD Resp normal respiratory effort and No clear to auscultation bilaterally Auscultation: wheezes expiratory wheezes, scattered wheezes and throughout Cardio regular rate, regular rhythm, S1 normal heart sound, S2 normal heart sound and no murmurs GI normal to inspection, nondistended, normoactive bowel sounds, non-tender, non-distended and no masses; Negative for hepatosplenomegaly Back/Spine no CVA tenderness Back/Spine Narrative: Bilateral paralumbar pain to palpation. She did complai (more content not included)... Normal [facility] M100.678on 08-10-2024 M100.678 Copy of report sent to Infection Control Printer [id number] 08/10/24 0944 ANUSHA. SARS-CoV-2 (COVID 19) A Positive A INFLUENZA A Negative INFLUENZA B Negative RSV PCR Negative SARS-CoV-2 (COVID 19 PCR) Normal [facility] Comment on above: Performed By: #### M [id number] #### [facility] [address], [place], [address] [facility] DANNN [facility] (Krowder) COREY PERLA ([id number]) 1990 F Date Time Provider Department 04/03/24 BRANDAN HOLLIS During your visit today, we recorded the following information about you: Brandan Hollis APRN.[facility] 04/03/2024 8:48 AM Signed had previously discussed HPV vaccination series. Can you please see if patient plans to get here at [place] versus another office? Thanks so much Allergies As of Date: 04/03/2024 (No Known Allergies) Date Reviewed: 03/25/2024 Reviewed by: Zoie Poon MA - Fully Assessed Reason for Visit: Patient Update [1234] Prescriptions as of 04/22/2024 - estradiol (VIVELLE-DOT) 0.075 mg/24 hr Apply 1 patch every 3 1/2 days. LICHA - acetaminophen (TYLENOL) 325 mg tablet Take 650 mg by mouth every 6 hours as needed for Pain. - Qvpyuhiq-Ag-Yzv-Fe-FA ( VITAMIN) tab Take 1 tablet by mouth once daily. Problem List As Of Date 04/03/2024 Noted Resolved UTI (urinary tract infection) [N39.0] 03/31/2019 Encounter Status:Closed by BRANDAN HOLLIS on 04/22/24 [facility] CNOVSPon 03-25-2024 CNOVS Visit (SP) Office (GYNML) COREY PERLA ([id number]) 1990 F Date Time Provider Department 03/25/24 11:45 AM CHANG THORPE During your visit today, we recorded the following information about you: Temperature Pulse Blood pressure Weight 98 degrees 71/minute 108/69 54 kg Chang Thorpe MD 04/02/2024 6:41 AM Signed DATE OF SERVICE: 03/25/2024 PROBLEM: Corey Perla presents for CT scan review. HPI: Ms. Perla is a 33 year old G0 female who has a past medical history of Kidney stone and Pyelonephritis. She had multiple abnormal pap smears and positive HPV. She underwent a hysteroscopy, DANDC, biopsy of the cervix to include ECC shows an invasive endocervical adenocarcinoma in November 2022. In December 2022 she had a radical hysterectomy with bilateral salpingectomy and sentinel lymph node biopsy. Pathology resulted in endocervix with invasive well differentiated adenocarcinoma. She underwent 50.4 Gy / 50.4 Gy (28 of 28 fractions) of radiation to the pelvic bed and 5 weeks of Cisplatin, completing in March 2023. She has not followed up since April 2023. She states that she lost her insurance and would like to re-establish care with [facility]. Last office visit: 11/27/23 IMAGING: PET SCAN- OSH 03/21/2023 IMPRESSION: No evidence of residual or recurrent FDG avid malignancy is identified. 11/27/23 CT CHEST ABDOMEN AND PELVIS WITH IV CONTRAST IMPRESSION: No acute pulmonary process is identified. Tiny pulmonary nodules, measuring up to 3 mm in size. Given history of cervical carcinoma, continued interval surveillance is recommended. Otherwise, no convincing CT evidence for metastatic disease within the chest. No lymphadenopathy is seen within the chest. Mild dependent atelectasis. Status post hysterectomy. No convincing CT evidence for metastatic disease within the abdomen or pelvis. Incidental note is a jejunal intussusception within the left abdomen, typically a transient phenomenon. No associated bowel obstruction. 03/22/2024 CT Chest/Abd/Pelvis: Few tiny (less than 3 mm) pulmonary nodules are stable from prior. No new enlarging pulmonary nodule. No thoracic lymphadenopathy. STABLE EXAM. NO METASTATIC DISEASE IN THE ABDOMEN OR PELVIS. LABS: Component 11/27/2023 Bacterial vaginosis Positive for bacterial vaginosis (A) PATHOLOGY: 12/17/2022 OSH Final Diagnosis A. SENTINEL LYMPH NODE, RIGHT PELVIC, DISSECTION - -THREE LYMPH NODES NEGATIVE FOR METASTATIC CARCINOMA (0/3) B. 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 -PROLIFERATIVE PHASE ENDOMETRIUM -UNREMARKABLE BILATERAL FALLOPIAN TUBES -UNREMARKABLE PARAMETRIUM -TWO LYMPH PARAMETRIAL NODES NEGATIVE FOR METASTATIC CARCINOMA (0/2) -NEGATIVE RESECTION MARGINS. C. SENTINEL LYMPH NODE, LEFT PELVIC, DISSECTION - -FIVE LYMPH NODES NEGATIVE FOR METASTATIC CARCINOMA (0/5) PAST SURGICAL HISTORY Procedure Laterality Date PAST SURGICAL HISTORY OF hysterectomy bilateral salpingectomy 12/2022 PAST MEDICAL HISTORY Diagnosis Date Cervical cancer (HCC) 11/2022 Kidney stone Pyelonephritis FAMILY HISTORY Problem Relation Age of Onset Breast Cancer Mother Family history of breast, ovarian, uterine or colon cancer: Yes, mom with breast diagnosed 10/2023 Family history of VTE: No SOCIAL HISTORY Social History Tobacco Use Smoking status: Every Day Packs/day: 0.5 Types: Cigarettes Substance Use Topics Alcohol use: No Drug use: No Marital Status: Single HEALTH MAINTENANCE: Last mammogram: none Last colonoscopy: none Last pap: 11/27/23 in process SUBJECTIVE/INTERVAL HISTORY: Corey Perla is doing well. No new complaints since last visit. No vaginal bleeding. She presents to review CT scan. She has not been using the estrogen patch, it was too expensive to pick-up from pharmacy. She has now moved over an hour away to live with her sister. Her abdominal pain is improved and only intermittent now. OBJECTIVE: BP 108/69 Pulse 71 Temp 36.7 ?C (98 ?F) (Oral) Wt 54 kg (119 lb) LMP 05/31/2017 BMI 20.43 kg/m? 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 IB3 adenocarcinoma cervix (2018) diagnosed Sep 2022 s/p RTH, BS, right SLND, left pelvic lymphadenectomy with Dr Fernando De La Rosa at [facility] in [place] on 12/17/2022 with tumor size measuring 4.8 cm, positive LVSI, deep 1/3 invasion, negative margins, negative parametrium and negative nodes on final pathology. She was treated with adjuvant concurrent pelvic radiation with radiosensitizing cisplatin, completed on 04/02/2023. CT scans reviewed today - KATHI (more content not included)... [facility] Graciela 03-25-2024 [place] Telephone (AGGYNONPOB) COREY PERLA ([id number]) 1990 F Date Time Provider Department 03/25/24 MILENA NOONAN During your visit today, we recorded the following information about you: Clarita Fowler 03/25/2024 2:26 PM Signed LMTCO and schedule appt with Dr. Esha Fowler 03/25/24 Allergies As of Date: 03/25/2024 (No Known Allergies) Date Reviewed: 03/25/2024 Reviewed by: Zoie Poon MA - Fully Assessed Reason for Visit: Appointment [186] Prescriptions as of 03/25/2024 - estradiol (IOANA) 0.075 mg/24 hr Apply 1 Patch as directed two times a week. - acetaminophen (TYLENOL) 325 mg tablet Take 650 mg by mouth every 6 hours as needed for Pain. - Wdlryvop-Bj-Gaf-Fe-FA ( VITAMIN) tab Take 1 tablet by mouth once daily. Problem List As Of Date 03/25/2024 Noted Resolved UTI (urinary tract infection) [N39.0] 03/31/2019 Encounter Status:Closed by CLARITA FOWLER on 03/25/24 [facility] CT ABD/PEL W IVCONon 03-22-[address] ABD/PEL W IVCON * * *Final Report* * * DATE OF EXAM: Mar 22 2024 9:53AM [facility] 0530 - CT ABD/PEL W IVCON / PROCEDURE REASON: multiple diagnoses * * * * Physician Interpretation * * * * EXAMINATION: CT ABDOMEN AND PELVIS WITH IV CONTRAST CLINICAL HISTORY: Cervical cancer, follow-up surveillance.33 year old G0 female who has a past medical history of Kidney stone and Pyelonephritis. She had multiple abnormal pap smears and positive HPV. She underwent a hysteroscopy, DandC, biopsy of the cervix to include ECC shows an invasive endocervical adenocarcinoma in November 2022. In December 2022 she had a radical hysterectomy with bilateral salpingectomy and sentinel lymph node biopsy. Pathology resulted in endocervix with invasive well differentiated adenocarcinoma. She underwent 50.4 Gy / 50.4 Gy (28 of 28 fractions) of radiation to the pelvic bed and 5 weeks of Cisplatin, completing in March 2023. She has not followed up since April 2023. She states that she lost her insurance and would like to re-establish care with [facility]. TECHNIQUE: CT of the abdomen and pelvis was performed using standard technique, scanning from just above the dome of the diaphragm to the symphysis pubis. MQ: CTAP_3 Contrast: IV: 100 ml of Omnipaque 350 Oral: 12 ml of Omni 240 10-25ml diluted with water CT Radiation dose: Integrated Dose-length product (DLP) for this visit = 387 mGy*cm. CT Dose Reduction Employed: Automated exposure control(AEC) and iterative recon COMPARISON: CT 11/27/2023, 03/31/2019. RESULT: Liver: No mass. Biliary: No bile duct dilation. Gallbladder is unremarkable. Spleen: No mass. No splenomegaly. Pancreas: No mass or duct dilation. Adrenals: No mass. Kidneys: Bilateral calyceal calculi measuring up to 0.3 cm. No ureterolithiasis or hydronephrosis. GI tract: No bowel wall thickening, dilation, or obstruction. Unremarkable appendix. Lymph nodes: No abdominal or pelvic lymphadenopathy. Mesentery/Peritoneum: No ascites or mass. Retroperitoneum: No mass. Vasculature: - Abdominal aorta and iliac arteries: No aneurysm. - Celiac and SMA: Patent without stenosis. - Portal venous system (SMV, splenic vein, portal vein and branches): Patent. - Hepatic veins: Patent. Pelvis: Urinary bladder is unremarkable. No organized intrapelvic collection. No suspicious lesions. Bones/Soft Tissues: No suspicious lesions. Lower thorax: A chest CT performed will be reported separately. Localizer images: No additional findings. IMPRESSION: STABLE EXAM. NO METASTATIC DISEASE IN THE ABDOMEN OR PELVIS. Yard Pilot: PSCB Transcribe Date/Time: Mar 22 2024 10:04A Dictated by : ISABELA HUYNH DO This examination was interpreted and the report reviewed and electronically signed by: ISABELA HUYNH DO on Mar 22 2024 10:53AM EST [id number] Normal [facility] CT Abdomen and Pelvis W cont rast Jose 03-22-2024 IMPRESSION: STABLE EXAM. NO METASTATIC DISEASE IN THE ABDOMEN OR PELVIS. Yard Pilot: PSCB Transcribe Date/Time: Mar 22 2024 10:04A Dictated by : ISABELA HUYNH DO This examination was interpreted and the report reviewed and electronically signed by: ISABELA HUYNH DO on Mar 22 2024 10:53AM [facility] * * *Final Report* * * DATE OF EXAM: Mar 22 2024 9:53AM [facility] 0530 - CT ABD/PEL W IVCON / PROCEDURE REASON: multiple diagnoses * * * * Physician Interpretation * * * * EXAMINATION: CT ABDOMEN AND PELVIS WITH IV CONTRAST CLINICAL HISTORY: Cervical cancer, follow-up surveillance.33 year old G0 female who has a past medical history of Kidney stone and Pyelonephritis. She had multiple abnormal pap smears and positive HPV. She underwent a hysteroscopy, D&C, biopsy of the cervix to include ECC shows an invasive endocervical adenocarcinoma in November 2022. In December 2022 she had a radical hysterectomy with bilateral salpingectomy and sentinel lymph node biopsy. Pathology resulted in endocervix with invasive well differentiated adenocarcinoma. She underwent 50.4 Gy / 50.4 Gy (28 of 28 fractions) of radiation to the pelvic bed and 5 weeks of Cisplatin, completing in March 2023. She has not followed up since April 2023. She states that she lost her insurance and would like to re-establish care with [facility]. TECHNIQUE: CT of the abdomen and pelvis was performed using standard technique, scanning from just above the dome of the diaphragm to the symphysis pubis. MQ: CTAP_3 Contrast: IV: 100 ml of Omnipaque 350 Oral: 12 ml of Omni 240 10-25ml diluted with water CT Radiation dose: Integrated Dose-length product (DLP) for this visit = 387 mGy*cm. CT Dose Reduction Employed: Automated exposure control(AEC) and iterative recon COMPARISON: CT 11/27/2023, 03/31/2019. RESULT: Liver: No mass. Biliary: No bile duct dilation. Gallbladder is unremarkable. Spleen: No mass. No splenomegaly. Pancreas: No mass or duct dilation. Adrenals: No mass. Kidneys: Bilateral calyceal calculi measuring up to 0.3 cm. No ureterolithiasis or hydronephrosis. GI tract: No bowel wall thickening, dilation, or obstruction. Unremarkable appendix. Lymph nodes: No abdominal or pelvic lymphadenopathy. Mesentery/Peritoneum: No ascites or mass. Retroperitoneum: No mass. Vasculature: - Abdominal aorta and iliac arteries: No aneurysm. - Celiac and SMA: Patent without stenosis. - Portal venous system (SMV, splenic vein, portal vein and branches): Patent. - Hepatic veins: Patent. Pelvis: Urinary bladder is unremarkable. No organized intrapelvic collection. No suspicious lesions. Bones/Soft Tissues: No suspicious lesions. Lower thorax: A chest CT performed will be reported separately. Localizer images: No additional findings. DIVISION OF RADIOLOGY Provider, [facility] - 03/22/2024 * * *Final Report* * * DATE OF EXAM: Mar 22 2024 9:53AM [facility] 0530 - CT ABD/PEL W IVCON / PROCEDURE REASON: multiple diagnoses * * * * Physician Interpretation * * * * EXAMINATION: CT ABDOMEN AND PELVIS WITH IV CONTRAST CLINICAL HISTORY: Cervical cancer, follow-up surveillance.33 year old G0 female who has a past medical history of Kidney stone and Pyelonephritis. She had multiple abnormal pap smears and positive HPV. She underwent a hysteroscopy, D&C, biopsy of the cervix to include ECC shows an invasive endocervical adenocarcinoma in November 2022. In December 2022 she had a radical hysterectomy with bilateral salpingectomy and sentinel lymph node biopsy. Pathology resulted in endocervix with invasive well differentiated adenocarcinoma. She underwent 50.4 Gy / 50.4 Gy (28 of 28 fractions) of radiation to the pelvic bed and 5 weeks of Cisplatin, completing in March 2023. She has not followed up since April 2023. She states that she lost her insurance and would like to re-establish care with [facility]. TECHNIQUE: CT of the abdomen and pelvis was performed using standard technique, scanning from just above the dome of the diaphragm to the symphysis pubis. MQ: CTAP_3 Contrast: IV: 100 ml of Omnipaque 350 Oral: 12 ml of Omni 240 10-25ml diluted with water CT Radiation dose: Integrated Dose-length product (DLP) for this visit = 387 mGy*cm. CT Dose Reduction Employed: Automated exposure control(AEC) and iterative recon COMPARISON: CT 11/27/2023, 03/31/2019. RESULT: Liver: No mass. Biliary: No bile duct dilation. Gallbladder is unremarkable. Spleen: No mass. No splenomegaly. Pancreas: No mass or duct dilation. Adrenals: No mass. Kidneys: Bilateral calyceal calculi measuring up to 0.3 cm. No ureterolithiasis or hydronephrosis. GI tract: No bowel wall thickening, dilation, or obstruction. Unremarkable appendix. Lymph nodes: No abdominal or pelvic lymphadenopathy. Mesentery/Peritoneum: No ascites or mass. Retroperitoneum: No mass. Vasculature: - Abdominal aorta and iliac arteries: No aneurysm. - Celiac and SMA: Patent without stenosis. - Portal venous system (SMV, splenic vein, portal vein and branches): Patent. - Hepatic veins: Patent. Pelvis: Urinary bladder is unremarkable. No organized intrapelvic collection. No suspicious lesions. Bones/Soft Tissues: No suspicious lesions. Lower thorax: A chest CT performed will be reported separately. Localizer images: No additional findings. IMPRESSION IMPRESSION: STABLE EXAM. NO METASTATIC DISEASE IN THE ABDOMEN OR PELVIS. Yard Pilot: FRANK Transcribe Date/Time: Mar 22 2024 10:04A Dictated by : ISABELA HUYNH DO This examination was interpreted and the report reviewed and electronically signed by: ISABELA HUYNH DO on Mar 22 2024 10:53AM EST [facility] Radiology Study observation (narrative) [facility] CT Abdomen and Pelvis W cont rast IVOrdered By: [facility] Provider on 03-22-2024 [facility] CT CHEST W IVCONon CT CHEST W IVCON * * *Final Report* * * DATE OF EXAM: Mar 22 2024 9:53AM [facility] 0539 - CT CHEST W IVCON / PROCEDURE REASON: multiple diagnoses * * * * Physician Interpretation * * * * EXAMINATION: CHEST CT WITH CONTRAST CLINICAL HISTORY: Cervical adenocarcinoma status post hysterectomy and radiation 2022. Technique: Spiral CT acquisition of the chest from the thoracic inlet to the upper abdomen following IV contrast. MQ: CTCW_6 Contrast: 100 mL Omnipaque [address] Radiation dose: Integrated Dose-length product (DLP) for this visit = 387 mGy*cm CT Dose Reduction Employed: Automated exposure control(AEC) and iterative recon Comparison: CT 11/27/2023 RESULT: Limitations: None. Lines, tubes, and devices: None. Lung parenchyma and airways: No focal airspace consolidation. Linear atelectasis/scarring in the bilateral lower lobes. A few pulmonary nodules are stable from prior, for reference 2 mm subpleural left upper lobe nodule (image 41) and 2 mm posterior left upper lobe nodule (image 72). No new enlarging pulmonary nodule. The central airways are patent with no endobronchial lesion. Pleural space: No pleural effusion. No pleural thickening. Lower neck, lymph nodes, and mediastinum: The imaged thyroid gland is normal. No lymphadenopathy in the supraclavicular, axillary, mediastinal, or hilar regions. The esophagus is nondilated. Stable soft tissue tissue in the anterior mediastinum, likely residual thymic tissue Heart, pericardium, and thoracic vessels: The thoracic aorta and main pulmonary artery are normal in caliber. The cardiac chambers are normal in size. No coronary artery atherosclerotic calcifications are noted, although the study is not optimized for coronary assessment. No pericardial effusion or thickening. Bones and soft tissues: No destructive bone lesion. Chest wall is unremarkable. Upper abdomen: Dictated separately. Localizer images: No additional findings. IMPRESSION: Few tiny (less than 3 mm) pulmonary nodules are stable from prior. No new enlarging pulmonary nodule. No thoracic lymphadenopathy. Yard Pilot: PSCB Transcribe Date/Time: Mar 23 2024 2:22P Dictated by : LENNIE JIMENEZ DO This examination was interpreted and the report reviewed and electronically signed by: DIANE LOPEZ MD on Mar 23 2024 3:57PM EST [id number] N [facility] Letter Text Normal [facility] CNCOon 12-19-2023 CNCO Letter Text Normal [facility] 11-28-2023 CNPN Telephone (GYNML) COREY PERLA ([id number]) 1990 F Date Time Provider Department 11/28/23 DIANNA STARKEY GYNML During your visit today, we recorded the following information about you: Dianna Starkey APRN.CNP 11/28/2023 4:56 PM Signed I called and spoke to Corey to let her know that her recent swab was positive for BV. Below script sent in for treatment (patient preferred po vs vaginal gel). Encouraged a call to the office with any questions or concerns otherwise follow up as scheduled. Dianna Starkey APRN.CNP The following approved medication requests have been transmitted electronically. Requested Prescriptions Signed Prescriptions Disp Refills metroNIDAZOLE (FLAGYL) 500 mg tablet 14 tablet 0 Sig: Take 1 tablet by mouth two times a day for 7 days. Do not drink alcohol while taking this medication. Authorizing Provider: DIANNA STARKEY APRN.CNP Allergies As of Date: 11/28/2023 (No Known Allergies) Date Reviewed: 11/27/2023 Reviewed by: Gideon Mora RN - Fully Assessed Reason for Visit: Results [95] Primary Visit Diagnosis:Bacterial vaginosis [N76.0, B96.89] Order(s):metroNIDAZOL E (FLAGYL) 500 mg tabletTake 1 tablet by mouth two times a day for 7 days. Do not drink alcohol while taking this medication.Disp: 14 tabletRfl: 0 Prescriptions as of 11/28/2023 - estradiol (CLIMARA) 0.075 mg/24 hr Apply 1 Patch as directed one time a week. to lower abd or buttocks. LICHA - metroNIDAZOLE (FLAGYL) 500 mg tablet Take 1 tablet by mouth two times a day for 7 days. Do not drink alcohol while taking this medication. - iv contrast (will be provided with radiology test) CT Chest ABD/PEL-Inject, intravenously, once for 1 dose.No IV access, insert saline lock prior to the beginning of sedation, infusion, injection of imaging exam. Discontinue saline lock post exam. If Pt. has a central line or IVAD, may access for administration according to line specific nursing protocol. Once exam is complete flush line and de-access according to line specific nursing protocol in the CT contrast administration guidelines link. - enteric contrast (will be provided with radiology test) For CT CHESTABD/PEL W IVCON Routine order Administer, As Directed One Time Only, via Oral, Rectal, both Oral and Rectal, Enteric Tube, Stoma or Indwelling Catheter, Enteric Contrast as designated per enteric contrast guidelines - acetaminophen (TYLENOL) 325 mg tablet Take 650 mg by mouth every 6 hours as needed for Pain. - Pwapwiec-Fk-Yvn-Fe-FA ( VITAMIN) tab Take 1 tablet by mouth once daily. Problem List As Of Date 11/28/2023 Noted Resolved UTI (urinary tract infection) [N39.0] 03/31/2019 Prescriptions ordered this encounter Disp Refills Start End METRONIDAZOLE 500 MG TABLET 14 t* 0 11/28/2023 12/05/2023 Route: ORAL Sig: Take 1 tablet by mouth two times a day for 7 days. Do not drink alcohol while taking this medication. Encounter Status:Closed by DIANNA STARKEY on 11/28/23 Normal [facility] BACTERIAL VAGINOSIS NAATon 0 11-27-2023 Lactobacillus crispatus+gasseri+filipe enii + Gardnerella vaginalis + Atopobium vaginae rRNA SHIVA+probe Ql (Vag fld) Positive Abnormal Negative for bacterial vaginosis [facility] Comment on above: Order Comment: Speci men Type: SWABOrdering Facility: [facility] Address: [address] [place] [address] Performed By: #### B VAMP, CVTV ####[facility] LABCLIA [id number] [place] [address] [place] YOSELIN/TRICHOMONAS NAATon 0 11-27-2023 C. glabrata RNA SHIVA+probe Ql (Vag fld) Negative Normal Negative for Yoselin glabrata [facility] Comment on above: Order Comment: Speci men Type: SWABOrdering Facility: [facility] Address: [address] [place] [address] Performed By: #### B VAMP, CVTV ####[facility] LABCLIA [id number] [place] [address] [place] Yoselin sp DNA SHIVA+probe Ql (Vag fld) Negative Normal Negative for Yoselin species [facility] Comment on above: Order Comment: Speci men Type: SWABOrdering Facility: [facility] Address: [address] [place] [address] Performed By: #### B VAMP, CVTV ####[facility] LABCLIA [id number] [place] [address] [place] T. vaginalis DNA SHIVA+probe Ql (Unsp spec) Negative Normal Negative for Trichomonas vaginalis by amplification [facility] Comment on above: Order Comment: Speci men Type: SWABOrdering Facility: [facility] Address: [address] [place] [address] Performed By: #### B VAMP, CVTV ####[facility] LABCLIA [id number] [place] CNOVSPon 11-27-2023 CNOVSP Visit (SP) Office (GYNML) COREY PERLA ([id number]) 1990 F Date Time Provider Department 11/27/23 9:00 AM [facility] During your visit today, we recorded the following information about you: Temperature Pulse Blood pressure Weight 98.3 degrees 66/minute 108/71 55.9 kg Chang Thorpe MD 11/28/2023 4:25 PM Signed DATE OF SERVICE: 11/27/2023 PROBLEM: Corey Perla presents to establish care for her history of cervical cancer. HPI: Ms. Perla is a 33 year old G0 female who has a past medical history of Kidney stone and Pyelonephritis. She had multiple abnormal pap smears and positive HPV. She underwent a hysteroscopy, DANDC, biopsy of the cervix to include ECC shows an invasive endocervical adenocarcinoma in November 2022. In December 2022 she had a radical hysterectomy with bilateral salpingectomy and sentinel lymph node biopsy. Pathology resulted in endocervix with invasive well differentiated adenocarcinoma. She underwent 50.4 Gy / 50.4 Gy (28 of 28 fractions) of radiation to the pelvic bed and 5 weeks of Cisplatin, completing in March 2023. She has not followed up since April 2023. She states that she lost her insurance and would like to re-establish care with [facility]. Patient reports that she presented to Dr Fernando De La Rosa at [facility] in [place] in Sep 2022 for evaluation of her history of abnormal pap smears and HPV 16+. An ECC was collected demonstrating invasive endocervical adenocarcinoma. Patient then had surgery followed by chemoRT and since then she has been symptomatic with intense hot flashes which awaken her at nights. Her last PET scan was from March 2023 and she was scheduled to repeat another PET but missed the appointment. Patient last saw Dr Fernando De La Rosa in April 2023. Today, patient reports intermittent RLQ pain which occurs about 4-5 times a day every 3 months. She also has abdominal distention which worsens after eating. Has diarrhea depending on what she eats. Most of the time, her bowel movements are a mix of watery and formed stools. Denies any constipation or issues with urination or vaginal bleeding. Patient was provided a vaginal dilator following her radiation treatment but has not been using it consistently. Patient is a current smoker, about half a pack daily. IMAGING: PET SCAN- OSH 03/21/2023 IMPRESSION: No evidence of residual or recurrent FDG avid malignancy is identified. LABS: No flowsheet data found. PATHOLOGY: 12/17/2022 OSH Final Diagnosis A. SENTINEL LYMPH NODE, RIGHT PELVIC, DISSECTION - -THREE LYMPH NODES NEGATIVE FOR METASTATIC CARCINOMA (0/3) B. 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 -PROLIFERATIVE PHASE ENDOMETRIUM -UNREMARKABLE BILATERAL FALLOPIAN TUBES -UNREMARKABLE PARAMETRIUM -TWO LYMPH PARAMETRIAL NODES NEGATIVE FOR METASTATIC CARCINOMA (0/2) -NEGATIVE RESECTION MARGINS. C. SENTINEL LYMPH NODE, LEFT PELVIC, DISSECTION - -FIVE LYMPH NODES NEGATIVE FOR METASTATIC CARCINOMA (0/5) HISTORIES: PAST GYNECOLOGIC HISTORY: LMP: cannot recall Hormonal contraceptives: No. HRT use: No. History of abnormal pap: Yes, multiple LEEPs Last pap: cannot recall Last HPV: cannot recall PAST SURGICAL HISTORY Procedure Laterality Date PAST SURGICAL HISTORY OF hysterectomy bilateral salpingectomy 12/2022 PAST MEDICAL HISTORY Diagnosis Date Cervical cancer (HCC) 11/2022 Kidney stone Pyelonephritis FAMILY HISTORY Problem Relation Age of Onset No Known Problems Mother No Known Problems Father Family history of breast, ovarian, uterine or colon cancer: Yes, mom with breast diagnosed 10/2023 Family history of VTE: No SOCIAL HISTORY Social History Tobacco Use Smoking status: Every Day Packs/day: 0.5 Types: Cigarettes Substance Use Topics Alcohol use: No Drug use: No Marital Status: Single HEALTH MAINTENANCE: Last mammogram: NA Last colonoscopy: NA Last pap: cannot recall Last HPV: cannot recall REVIEW OF SYSTEMS: GENERAL: Reports decreased appetite, increased fatigue and overall not feeling well HEENT: head positive for headache NECK: No lumps, goiter, pain, significant neck swelling, or difficulty swallowing. RESPIRATORY: positive for shortness of breath on exertion CARDIOVASCULAR: No angina with activity or at rest, lower extremity edema, or palpitations. No recent MS (within 6 months), cardiac stent, cardiac surgery, gangrene, or PVD. No history of hypertension. BREAST: No breast lumps, skin changes, nipple discharge, or adenopathy. GI: Reports abdominal pain, decreased appetite and painful bowel movements. No prior history of esophageal varicies or ascites. Patient denies drinking >2 alcoholic beverages a day. [facility]: No vaginal bleeding (more content not included)... Normal [facility] CT ABD/PEL W IVCONon 024 CT ABD/PEL W IVCON * * *Final Report* * * DATE OF EXAM: Nov 27 2023 1:12PM [facility] 0530 - CT ABD/PEL W IVCON / PROCEDURE REASON: History of cervical cancer * * * * Physician Interpretation * * * * EXAMINATION: CT CHEST WITH IV CONTRAST AND CT ABDOMEN AND PELVIS WITH IV CONTRAST CLINICAL HISTORY: History of cervical cancer TECHNIQUE: CT of the chest from the thoracic inlet to the upper abdomen was performed following administration of IV contrast. CT of the abdomen and pelvis was performed using standard technique. Contrast: IV: 100 ml of Omnipaque 350 Oral: 450 ml of Omni 240 10-25ml diluted with water CT Radiation dose: Integrated Dose-length product (DLP) for this visit = 287 mGy*cm. CT Dose Reduction Employed: Automated exposure control (AEC) COMPARISON: CT abdomen and pelvis dated 03/31/2019. RESULT: Limitations: None. Chest: Lines, tubes, and devices: None. Lung parenchyma and pleura: There is mild dependent atelectasis. There is no pneumothorax or endobronchial lesion. No convincing CT evidence for pneumonia. There is no pneumothorax or endobronchial lesion. There are a few subcentimeter indeterminate pulmonary nodules. For example, there is an approximately 3 mm subpleural nodule within the apicoposterior segment of the left upper lobe (series 3, image #40). There is an approximately 3 mm nodule seen within the superior segment of the right lower lobe, near the right major fissure (series 3, image #98). A few other tiny pulmonary nodules are also seen. Thoracic inlet, heart, and mediastinum: Prominent soft tissue density within the anterior mediastinum is likely thymic in origin. There are no pathologically enlarged axillary, mediastinal, or hilar lymph nodes. The heart is normal in size. There is no significant pericardial effusion. Abdomen/pelvis: Liver: There is no focal discrete hepatic mass. Biliary: The gallbladder is relatively collapsed. There is no biliary dilation. Spleen: No mass. No splenomegaly. Pancreas: There is no obvious focal discrete pancreatic mass or pancreatic ductal dilation. Adrenals:No mass. Kidneys: Nonobstructing bilateral nephrolithiasis. There is no hydronephrosis or perinephric fluid collection. GI tract: Nonspecific wall thickening of the stomach likely relates to underdistention. Incidentally noted is a jejunal intussusception within the left abdomen, usually a transient phenomena (series 3, image #61). No associated bowel obstruction. There is sigmoid colon diverticulosis, without CT evidence for diverticulitis. The appendix is seen in the right lower quadrant and is within normal limits. Lymph nodes: No abdominal lymphadenopathy. Mesentery/Peritoneum: No abdominal ascites. Vasculature: No abdominal aortic aneurysm. Pelvis: A few phleboliths are incidentally noted within the pelvis. The patient is status post hysterectomy. There is no pelvic lymphadenopathy, pelvic mass, or pelvic ascites. Bones/Soft Tissues: Vacuum phenomena is seen involving the sacroiliac joint spaces, bilaterally. Mild bilateral hip DJD. No destructive bony lesion. IMPRESSION: No acute pulmonary process is identified. Tiny pulmonary nodules, measuring up to 3 mm in size. Given history of cervical carcinoma, continued interval surveillance is recommended. Otherwise, no convincing CT evidence for metastatic disease within the chest. No lymphadenopathy is seen within the chest. Mild dependent atelectasis. Status post hysterectomy. No convincing CT evidence for metastatic disease within the abdomen or pelvis. Incidental note is a jejunal intussusception within the left abdomen, typically a transient phenomenon. No associated bowel obstruction. Yard Pilot: PSCB Transcribe Date/Time: Nov 27 2023 2:14P Dictated by : JAJA CARBAJAL MD This examination was interpreted and the report reviewed and electronically signed by: JAJA CARBAJAL MD on Nov 27 2023 2:25PM EST [id number] Normal [facility] CT CHEST W IVCONon 4 CT CHEST W IVCON * * *Final Report* * * DATE OF EXAM: Nov 27 2023 1:12PM [facility] 0539 - CT CHEST W IVCON / PROCEDURE REASON: History of cervical cancer * * * * Physician Interpretation * * * * EXAMINATION: CT CHEST WITH IV CONTRAST AND CT ABDOMEN AND PELVIS WITH IV CONTRAST CLINICAL HISTORY: History of cervical cancer TECHNIQUE: CT of the chest from the thoracic inlet to the upper abdomen was performed following administration of IV contrast. CT of the abdomen and pelvis was performed using standard technique. Contrast: IV: 100 ml of Omnipaque 350 Oral: 450 ml of Omni 240 10-25ml diluted with water CT Radiation dose: Integrated Dose-length product (DLP) for this visit = 287 mGy*cm. CT Dose Reduction Employed: Automated exposure control (AEC) COMPARISON: CT abdomen and pelvis dated 03/31/2019. RESULT: Limitations: None. Chest: Lines, tubes, and devices: None. Lung parenchyma and pleura: There is mild dependent atelectasis. There is no pneumothorax or endobronchial lesion. No convincing CT evidence for pneumonia. There is no pneumothorax or endobronchial lesion. There are a few subcentimeter indeterminate pulmonary nodules. For example, there is an approximately 3 mm subpleural nodule within the apicoposterior segment of the left upper lobe (series 3, image #40). There is an approximately 3 mm nodule seen within the superior segment of the right lower lobe, near the right major fissure (series 3, image #98). A few other tiny pulmonary nodules are also seen. Thoracic inlet, heart, and mediastinum: Prominent soft tissue density within the anterior mediastinum is likely thymic in origin. There are no pathologically enlarged axillary, mediastinal, or hilar lymph nodes. The heart is normal in size. There is no significant pericardial effusion. Abdomen/pelvis: Liver: There is no focal discrete hepatic mass. Biliary: The gallbladder is relatively collapsed. There is no biliary dilation. Spleen: No mass. No splenomegaly. Pancreas: There is no obvious focal discrete pancreatic mass or pancreatic ductal dilation. Adrenals:No mass. Kidneys: Nonobstructing bilateral nephrolithiasis. There is no hydronephrosis or perinephric fluid collection. GI tract: Nonspecific wall thickening of the stomach likely relates to underdistention. Incidentally noted is a jejunal intussusception within the left abdomen, usually a transient phenomena (series 3, image #61). No associated bowel obstruction. There is sigmoid colon diverticulosis, without CT evidence for diverticulitis. The appendix is seen in the right lower quadrant and is within normal limits. Lymph nodes: No abdominal lymphadenopathy. Mesentery/Peritoneum: No abdominal ascites. Vasculature: No abdominal aortic aneurysm. Pelvis: A few phleboliths are incidentally noted within the pelvis. The patient is status post hysterectomy. There is no pelvic lymphadenopathy, pelvic mass, or pelvic ascites. Bones/Soft Tissues: Vacuum phenomena is seen involving the sacroiliac joint spaces, bilaterally. Mild bilateral hip DJD. No destructive bony lesion. IMPRESSION: No acute pulmonary process is identified. Tiny pulmonary nodules, measuring up to 3 mm in size. Given history of cervical carcinoma, continued interval surveillance is recommended. Otherwise, no convincing CT evidence for metastatic disease within the chest. No lymphadenopathy is seen within the chest. Mild dependent atelectasis. Status post hysterectomy. No convincing CT evidence for metastatic disease within the abdomen or pelvis. Incidental note is a jejunal intussusception within the left abdomen, typically a transient phenomenon. No associated bowel obstruction. Yard Pilot[facility] Transcribe Date/Time: Nov 27 2023 2:14P Dictated by : JAJA CARBAJAL MD This examination was interpreted and the report reviewed and electronically signed by: JAJA CARBAJAL MD on Nov 27 2023 2:25PM EST [id number] Normal [facility] HPV W/GENOTYPE THIN PREPon 0 11-27-2023 HPV 16 Ag Ql (Unsp spec) Negative Normal Negative for HPV DNA high risk type 16 by PCR [facility] Comment on above: Order Comment: Speci men Type: FLUID SPECIMENOrdering Facility: [facility] Address: [address] [place] [address] Performed By: #### H PVHRT, [id number] ####[facility] LABCLIA [id number] [address] [address] [place] HPV 18 Ag Ql (Unsp spec) Negative Normal Negative for HPV DNA high risk type 18 by PCR [facility] Comment on above: Order Comment: Speci men Type: FLUID SPECIMENOrdering Facility: [facility] Address: [address] [place] [address] Performed By: #### H PVHRT, [id number] ####[facility] LABCLIA [id number] [place] [address] [place] HPV 31+33+35+39+45+51+52+5 6+58+59+66+68 DNA SHIVA+probe Ql (Cvx) Negative for HPV DNA high risk types: 31,33,35,39,45,51,52, 56,58,59,66,68 by PCR. Normal Negative for HPV DNA high risk types: 31,33,35,39,45, 51,52,56,58,59, 66,68 by PCR. [facility] Comment on above: Order Comment: Speci men Type: FLUID SPECIMENOrdering Facility: [facility] Address: [address] [place] [address] Performed By: #### H PVHRT, [id number] ####[facility] LABCLIA [id number] [place] [address] [place] PAP TESTon 11-27-2023 ADEQUACY Satisfactory for interpretation Normal [facility] Comment on above: Order Comment: Speci men Type: FLUID SPECIMENOrdering Facility: [facility] Address: [address] [place] [address] Performed By: #### H PVHRT, [id number] ####[facility] LABCLIA [id number] [place] [address] [place] CASE REPORT Normal [facility] Comment on above: Order Comment: Speci men Type: FLUID SPECIMENOrdering Facility: [facility] Address: [address] [place] [address] Result Comment: Gyne cologic Cytology Report Case: [id number] Authorizing Provider: Chang Thorpe MD Collected: 11/27/2023 09:53 AM Ordering Location: Gynecology Received: 11/28/2023 08:33 AM First Screen: Herrera Rivera Tech Pathologist: Rukhsana Copeland MD Specimen: Pap Test, ThinPrep, Vaginal Performed By: #### H PVHRT, [id number] ####[facility] LABCLIA [id number] [place] [address] [place] CLINICAL HISTORY, CYTOLOGY, RESEARCH ANIMAL FACILITY SUPERVISOR History of Malignancy (Describe) [facility] Comment on above: Order Comment: Speci men Type: FLUID SPECIMENOrdering Facility: [facility] Address: [address] [place] [address] Result Comment: cerv ical Performed By: #### H PVHRT, [id number] ####[facility] LABCLIA [id number] [place] [address] [place] CYTOLOGY PAP OTHER INT Predominance of coccobacilli consistent with shift in vaginal laurita [facility] Comment on above: Order Comment: Speci men Type: FLUID SPECIMENOrdering Facility: [facility] Address: [address] [place] [address] Performed By: #### H PVHRT, [id number] ####[facility] LABCLIA [id number] [place] [address] [place] FINAL PERFORMING LAB Normal [facility] Comment on above: Order Comment: Speci men Type: FLUID SPECIMENOrdering Facility: [facility] Address: [address] [place] [address] Result Comment: Tech nical component, card room manager screening performed at [facility], [address] [place] [address] CLIA# [id number] Diagnostic interpretation performed at [facility], [address] [place], [place] [id number] CLIA# [id number] Design Technology Professor: Wilson Denise M.D. Performed By: #### H PVHRT, [id number] ####[facility] LABCLIA [id number] [address] [address] [place] HPV REFLEX Yes HPV Normal [facility] Comment on above: Order Comment: Speci men Type: FLUID SPECIMENOrdering Facility: [facility] Address: [address] [place] [address] Performed By: #### H PVHRT, [id number] ####[facility] LABCLIA [id number] [place] [address] [place] INTERPRETATION, CYTOLOGY, RESEARCH ANIMAL FACILITY SUPERVISOR Abnormal [facility] Comment on above: Order Comment: Speci men Type: FLUID SPECIMENOrdering Facility: [facility] Address: [address] [place] [address] Result Comment: Low grade squamous intraepithelial lesion (LSIL). Performed By: #### H PVHRT, [id number] ####[facility] LABCLIA [id number] [place] [address] [place] LMP 11/10/2022 [facility] Comment on above: Order Comment: Speci men Type: FLUID SPECIMENOrdering Facility: [facility] Address: [address] [place] [address] Performed By: #### H PVHRT, [id number] ####[facility] LABCLIA [id number] [place] [id number] [place] PAP DISCLAIMER COMMENT The Pap Smear is a screening test for cervical cancer. False negative results occur with all screening tests, emphasizing the need for rescreening at recommended intervals, and clinical correlation. [facility] Comment on above: Order Comment: Speci men Type: FLUID SPECIMENOrdering Facility: [facility] Address: [address] [place] [address] Performed By: #### H PVHRT, [id number] ####[facility] LABCLIA [id number] [place] [address] [place] PAP GENERAL CATEGORIZATION Epithelial Cell Abnormality Normal [facility] Comment on above: Order Comment: Speci men Type: FLUID SPECIMENOrdering Facility: [facility] Address: [address] [place] [address] Performed By: #### H PVHRT, [id number] ####[facility] LABCLIA [id number] [address] [place] PAP ARGON TESTER COMMENT This specimen has been analyzed by the ThinPrep Imaging System, an automated imaging and review system, which assists the laboratory in evaluating cells on ThinPrep Pap tests. Following automated imaging, selected perez from every slide are reviewed by a card room manager. Normal [facility] Comment on above: Order Comment: Speci men Type: FLUID SPECIMENOrdering Facility: [facility] Address: [address] [place] [address] Performed By: #### H PVHRT, [id number] ####[facility] LABCLIA [id number] [address] [place] OUTSIDE SURG PATH SLIDE REVI EWon 11-25-2023 CASE REPORT Normal [facility] Comment on above: Order Comment: Speci men Type: FORMALIN-FIXED PARAFFIN-EMBEDDED TISSUE SPECIMEN Ordering Facility: Outside Review Address: , , Result Comment: [facility] Pathology Report Case: [id number] Authorizing Provider: Chang Thorpe MD Collected: 11/25/2023 07:44 AM Ordering Location: [facility] Received: 11/25/2023 07:43 AM [facility] Pathologist: Prasad Cadet MD Specimen: SLIDE(S), 30 SLIDES [id number] Performed By: #### L [id number] #### [facility] CLIA [id number] [address] [place] [address] [place] DIAGNOSIS COMMENT Normal [facility] Comment on above: Order Comment: Speci men Type: FORMALIN-FIXED PARAFFIN-EMBEDDED TISSUE SPECIMEN Ordering Facility: [facility] Outside Review Address: , , Result Comment: The pattern of cervical stromal invasion corresponds to Duarte Pattern C given the extent of stromal desmoplasia at the deep aspect of the tumor and presence of lymph-vascular invasion. Immunoperoxidase studies for p16 were performed on multiple sections from the cervical mass at an outside institution and provided for review. The invasive carcinoma cells are strongly and diffusely positive for p16, supporting an HPV-associated etiology. Performed By: #### L [id number] #### [facility] CLIA [id number] [address] [place] [id number] [place] [address] FINAL DIAGNOSIS Normal [facility] Comment on above: Order Comment: Speci men Type: FORMALIN-FIXED PARAFFIN-EMBEDDED TISSUE SPECIMEN Ordering Facility: [facility] Outside Review Address: , , Result Comment: Lymp h nodes, right pelvic, sentinel biopsy ([id number], part A; 12/17/2022): ---Multiple (3) benign lymph nodes. [0/3] Uterus, cervix, and fallopian tubes, radical hysterectomy and bilateral salpingectomy ([id number], part B; 12/17/2022): ---Invasive well-differentiated endocervical adenocarcinoma, human papilloma virus (HPV)-associated, circumferentially involving the cervix (per outside report, measuring approximately 4.8 cm in greatest dimension). ------Carcinoma invades 1.1 cm into underlying cervical stroma (deep one-third stromal invasion). ------Lymph-vascular invasion is present. ------The endomyometrium, parametrial soft tissues, and fallopian tubes are negative for carcinoma. ------The surgical margins are negative for carcinoma. ------Multiple (2) benign parametrial lymph nodes. [0/2] ---Proliferative endometrium and benign fallopian tubes. ---Please see comment. Lymph nodes, left pelvic, dissection [id number], part C; 12/17/2022): ---Multiple (5) benign lymph nodes. [0/5] Performed By: #### L [id number] #### [facility] CLIA [id number] [address] [place] [address] OF [facility] FINAL PERFORMING LAB Normal [facility] Comment on above: Order Comment: Speci men Type: FORMALIN-FIXED PARAFFIN-EMBEDDED TISSUE SPECIMEN Ordering Facility: Outside Review Address: , , Result Comment: Diag nostic interpretation performed at [facility], [address] [place] [address] CLIA# [id number] Design Technology Professor: Wilson Denise M.D. Performed By: #### L [id number] #### [facility] CLIA [id number] [address] [place] [address] CNPBere 11-19-2023 CNPN Telephone (GYNML) COREY PERLA ([id number]) 1990 F Date Time Provider Department 11/19/23 CHANG THORPE GYNML During your visit today, we recorded the following information about you: Rosmery Rico 11/19/2023 12:42 PM Signed Spoke to [facility] department. Confirmed that slides were there and faxed request for second read. Fax confirmation was scanned into [employer]. Allergies As of Date: 11/19/2023 (No Known Allergies) Date Reviewed: 04/01/2019 Reviewed by: Milena Amaral (Rn), RN - Fully Assessed Reason for Visit: PATHOLOGY SLIDE REQUEST [Other] Cmt: Spoke to [facility] department. Confirmed that slides were there and faxed request for second read. Fax confirmation was scanned into [employer]. Prescriptions as of 11/19/2023 - acetaminophen (TYLENOL) 325 mg tablet Take 650 mg by mouth every 6 hours as needed for Pain. - Lyvtwsvu-Bx-Khm-Fe-FA ( VITAMIN) tab Take 1 tablet by mouth once daily. Problem List As Of Date 11/19/2023 Noted Resolved UTI (urinary tract infection) [N39.0] 03/31/2019 Encounter Status:Closed by ROSMERY RICO on 11/19/23 [facility] CNPN Telephone (GYNML) COREY PERLA ([id number]) 1990 F Date Time Provider Department 11/19/23 BERE TSAI [facility] During your visit today, we recorded the following information about you: Bere Tsai RN 11/19/2023 10:54 AM Signed Spoke to patient for new patient information. Will update Epic as needed. Allergies As of Date: 11/19/2023 (No Known Allergies) Date Reviewed: 04/01/2019 Reviewed by: Milena Amaral (Rn), RN - Fully Assessed Reason for Visit: New Patient [172] Prescriptions as of 11/19/2023 - acetaminophen (TYLENOL) 325 mg tablet Take 650 mg by mouth every 6 hours as needed for Pain. - Qqktnlnu-Ia-Vzm-Fe-FA ( VITAMIN) tab Take 1 tablet by mouth once daily. Problem List As Of Date 11/19/2023 Noted Resolved UTI (urinary tract infection) [N39.0] 03/31/2019 Encounter Status:Closed by BERE TSAI on 11/19/23 [facility] C THROATon 08-29-2023 C THROAT [facility] Dept of Laboratory Services [address] [place] [id number] Name: COREY PERAL : 1990 Admitting Provider: Gender Female Financial [id number] : Number: Bernabe PANIAGUA; Bed 10; 1 n: Admit 08/28/2023 Date: Discharge 08/28/2023 Microbiology Date: PROCEDURE: C THROAT [] SOURCE: THROAT BODY SITE: COLLECTED DATE/TIME: 08/28/2023 11:31 EDT RECEIVED DATE/TIME: 08/28/2023 14:02 EDT START DATE/TIME: 08/28/2023 14:02 EDT FREE TEXT SOURCE: ORDERING PHYSICIAN: SYSTEM FINAL REPORTS Final Report [] Verified Date/Time: 08/29/2023 13:52 EDT Normal Upper Respiratory Laurita isolated. Negative for Streptococcus pyogenes, Group A ____ L=Low, H= High, *= Abnormal, C=Critical, f=Footnote, c=Corrected, i=Interp Data Name: COREY PERLA Print 08/29/2023 13:52 EDT Date/Time: Normal [facility] Comment on above: Performed By: #### 5 [id number], [id number] ####[facility] [id number] [place] [id number] Medical Director: Edison Dasilva MD COVID-19 Molecular BREDon SARS-CoV-2 (COVID-19) RNA SHIVA+probe Ql (Unsp spec) Negative [facility] Comment on above: Result Comment: This assay is designed to detect the RdRp target of SARS-CoV-2 using rapid molecular isothermal amplification technology. A Negative result does not preclude the possibility of COVID 19 infection since the adequacy of sample collection and/or low viral burden may result in the presence of viral nucleic acids below the analytical sensitivity of this test method. Test results should be used along with other clinical and laboratory data in making the diagnosis. This test has received FDA Emergency Use Authorization and has been verified by [facility] laboratory. This test is only authorized for the duration of the declaration and circumstances that exist to justify the authorization of the emergency use of the in vitro diagnostic tests for the detection of SARS-CoV-2 virus and/or diagnosis of COVID-19 infection under section 564(b)(1) of the Act. 21 U.S.C. 360bbb-3(b)(1), unless the authorization is terminated or revoked sooner. This testing was performed in the [facility] laboratory located at [[place] [address]] Performed By: #### C [id number] #### [facility] [address] [place] [address] Advertising Director: Edison Dasilva MD ED Adult Data - Texton 08-28 ED Adult Data - Text ED Adult Data Enter ed On: 08/28/2023 11:33 EDT Performed On: 08/28/2023 11:32 EDT by Valerie Altamirano Arrival Information Chief Complaint Onset : 08/28/2023 11:32 EDT Referral Source ED : Home [facility] Mode of Arrival : Car / Walk-In Valerie Altamirano 08/28/2023 11:32 EDT Screening-General Meds Triage : Other Accept Blood Products if Necessary : Yes Immunizations Current : Yes Last Tetanus : Less than 5 years Valerie Altamirano 08/28/2023 11:32 EDT Depression Screening Patient able to verbalize? : Yes Feeling Down, Depressed, Hopeless : Not at all Little Interest - Pleasure in Activities : Not at all Initial Depression Screen Score : 0 Depression Screening Score 0 : No IP Pt being evaluated or treated for BH conditions : No Valerie Altamirano 08/28/2023 11:32 EDT Screening-Safety Abuse/Violence Concerns? : Patient denies Does the patient have a medically restricted extremity? : No Valerie Altamirano 08/28/2023 11:32 EDT Problem List Problem List obtained from : Patient Valerie Altamirano 08/28/2023 11:32 EDT (As Of: 08/28/2023 11:33:26 EDT) Problems(Active) Adenocarcinoma of cervix (SNOMED CT :419574231 ) Name of Problem: Adenocarcinoma of cervix ; Recorder: IDALMIS JIMENEZ; Confirmation: Confirmed ; Classification: Medical ; Code: [id number] ; Contributor System: SpontoChart ; Last Updated: 11/28/2022 11:14 EST ; Life Cycle Date: 11/28/2022 ; Life Cycle Status: Active ; Responsible Provider: IDALMIS JIMENEZ; Vocabulary: SNOMED CT Cervical mass (SNOMED CT :746418332 ) Name of Problem: Cervical mass ; Recorder: IDALMIS JIMENEZ; Confirmation: Confirmed ; Classification: Medical ; Code: [id number] ; Contributor System: SpontoChart ; Last Updated: 10/09/2022 14:49 EST ; Life Cycle Date: 10/09/2022 ; Life Cycle Status: Active ; Responsible Provider: IDALMIS JIMENEZ; Vocabulary: SNCradlePoint Technology CT High risk HPV infection (SNOMED CT :938433762 ) 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 ; Recorder: IDALMIS JIMENEZ; Confirmation: Confirmed ; Classification: Medical ; Code: [id number] ; Contributor System: SpontoChart ; Last Updated: 10/09/2022 14:49 EST ; Life Cycle Date: 10/09/2022 ; Life Cycle Status: Active ; Responsible Provider: IDALMIS JIMENEZ; Vocabulary: SNOMED CT HPV in female (SNOMED CT :730048875 ) 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 ; Recorder: Karina Encinas RN; Confirmation: Confirmed ; Classification: Medical ; Code: [id number] ; Contributor System: SpontoChart ; Last Updated: 2022 07:37 EST ; Life Cycle Date: 2022 ; Life Cycle Status: Active ; Vocabulary: SNOMED CT Diagnoses(Active) Sore throat - Adult Date: 08/28/2023 ; Diagnosis Type: Reason For Visit ; Confirmation: Confirmed ; Clinical Dx: Sore throat - Adult ; Classification: Medical ; Clinical Service: Non-Specified ; Code: PNED ; Probability: 0 ; Diagnosis Code: [id number] Procedure History ED Devices Present on Arrival To ED : None Urinary Catheter Present on Admit to ED : No Valerie Altamirano - 08/28/2023 11:32 EDT - Procedure History (As Of: 08/28/2023 11:33:26 EDT) Procedure Dt/Tm: 2003 ; Anesthesia Minutes: 0 ; Procedure Name: Gardasil vaccine series completed ; Procedure Minutes: 0 Procedure Dt/Tm: 11/15/2022 ; Provider: IDALMIS JIMENEZ; Anesthesia Minutes: 0 ; Procedure Name: HYSTEROSCOPY D&C ; Procedure Minutes: 0 Anesthesia Minutes: 0 ; Procedure Name: [place] teeth extraction ; Procedure Minutes: 0 Social History Does pt have any alcohol,drugs or tobacco : No Do you consume Alcohol : No Social History obtained from : Patient Lynsey SEPULVEDABronson Valerie - 08/28/2023 11:32 EDT Social History (As Of: 08/28/2023 11:33:26 EDT) Alcohol: Denies Alcohol Use (Last Updated: 10/09/2022 09:17:27 EST by Anne Marie Linn MA ) Tobacco: 10 or more cigarettes (1/2 pack or more)/day in last 30 days Tobacco Use:. (Last Updated: 11/22/2021 13:34:49 EST by Glory Dumont MA) Substance Abuse: Denies Substance Abuse (Last Updated: 10/31/2022 11:04:54 EST by Sanchez Henderson RN ) Sexual: Other contraceptive use: none. (Last Updated: 10/09/2022 09:17:36 EST by Anne Marie Linn MA) Infection Screening Travel outside US within past 30 days : No Exposure AND/OR close contact with a person under investigation or laboratory-confirmed COVID-19 individual within 14 days of symptom onset AND/OR any of the following: : No Do you live/work in a high risk situation (congregated living, hemodialysis, infusion clinic, jail, assisted living, retirement, homeless intermediate, etc.)? : No Lynsey Valerie GUZMAN 08/28/2023 11:32 EDT Normal [facility] ED Discharge Educationon ED Discharge Education Ear, Nose and Thr oat Sore Throat: Care Instructions Overview Infection by bacteria or a virus causes most sore throats. Cigarette smoke, dry air, air pollution, allergies, and yelling can also cause a sore throat. Sore throats can be painful and annoying. Fortunately, most sore throats go away on their own. If you have a bacterial infection, your doctor may prescribe antibiotics. Follow-up care is a jimenez part of your treatment and safety. Be sure to make and go to all appointments, and call your doctor if you are having problems. It's also a good idea to know your test results and keep a list of the medicines you take. How can you care for yourself at home? ? If your doctor prescribed antibiotics, take them as directed. Do not stop taking them just because you feel better. You need to take the full course of antibiotics. ? Gargle with warm salt water several times a day to help reduce swelling and relieve pain. Mix 1/2 teaspoon of salt in 1 cup of warm water. ? Take an lxkb-nmd-oiwowpl pain medicine, such as acetaminophen (Tylenol), ibuprofen (Advil, Motrin), or naproxen (Aleve). Read and follow all instructions on the label. ? Be careful when taking knuq-fkg-tcappqg cold or flu medicines and Tylenol at the same time. Many of these medicines have acetaminophen, which is Tylenol. Read the labels to make sure that you are not taking more than the recommended dose. Too much acetaminophen (Tylenol) can be harmful. ? Drink plenty of fluids. Fluids may help soothe an irritated throat. Hot fluids, such as tea or soup, may help decrease throat pain. ? Use zlmi-ugh-sjhpitm throat lozenges to soothe pain. Regular cough drops or hard candy may also help. These should not be given to young children because of the risk of choking. ? Do not smoke or allow others to smoke around you. If you need help quitting, talk to your doctor about stop-smoking programs and medicines. These can increase your chances of quitting for good. ? Use a vaporizer or humidifier to add moisture to your bedroom. Follow the directions for cleaning the machine. When should you call for help? Call your doctor now or seek immediate medical care if: ? You have trouble breathing. ? Your sore throat gets much worse on one side. ? You have new or worse trouble swallowing. ? You have a new or higher fever. Watch closely for changes in your health, and be sure to contact your doctor if you do not get better as expected. Where can you learn more? Go to [email or web address].[email or web address]/patientEd Enter U420 in the search box to learn more about Sore Throat: Care Instructions. Current as of: July 18, 2021 Content Version: 13.3 ? [employer]. Care instructions adapted under license by your healthcare professional. If you have questions about a medical condition or this instruction, always ask your healthcare professional. [employer] disclaims any warranty or liability for your use of this information. Normal [facility] ED Emergency Severity Index Adult-Texton 08-28-2023 ED Emergency Severity Index Adult-Text ANDREA - Adult Entered On: 08/28/2023 11:30 EDT Performed On: 08/28/2023 11:30 EDT by Valerie Altamirano ANDREA DCP GENERIC CODE Visit Reason : SORE THROAT Tracking Triage Date/Time : 08/28/2023 11:30 EDT Tracking Reg Status : Requested Tracking [employer] : [id number] : BRED Valerie Altamirano - 08/28/2023 11:30 EDT [facility] ED Nrsing Adlt Triage Sep Sc rning - Texton 08-28-2023 ED Nrsing Adlt Triage Sep Scrning - Text ED Nursing Adult Triage Sepsis Screening Tool Entered On: 08/28/2023 11:30 EDT Performed On: 08/28/2023 11:30 EDT by Valerie Altamirano Adult Sepsis Screening Sepsis Infection Screening ED : No Valerie Altamirano - 08/28/2023 11:30 EDT [facility] ED Patient Summaryon 023 ED Patient Summary [facility] Discharge Instructions [address] [place] [address] (Patient Copy) Name: COREY PERLA : 1990 Allergies: No Known Allergies Diagnosis: Sore throat Visit Date: 08/28/2023 11:25:20 Current Date Time: 08/28/2023 12:23:00 Address: [address] [place] [address] Phone: [phone] Primary Care Provider: Name: NO FAMILY PHYSICIAN, 837 Phone: Emergency Department Care Providers: Primary Physician: ALEX MIMS DO Thank you for choosing [facility] for your emergency care. You are very important to us. Our goal is to demonstrate our high quality medical care, and provide you with a very good patient experience. You may receive a survey about our service. Please take the time to complete the survey and return it so we can continue to enhance our service. Thank you again for allowing the [facility] Emergency Department to care for your medical needs. If you have questions about your care or follow up information please contact us at [phone]. Follow-Up Instructions COREY PERLA has been given these follow-up instructions: With: Address: When: COURTNEY PALACIOS, Internal Medicine [address] [place] [phone] Business (1) Within 3 to 5 days Patient Education Materials COREY PERLA has been given the following patient education materials: Sore Throat: Care Instructions Overview Infection by bacteria or a virus causes most sore throats. Cigarette smoke, dry air, air pollution, allergies, and yelling can also cause a sore throat. Sore throats can be painful and annoying. Fortunately, most sore throats go away on their own. If you have a bacterial infection, your doctor may prescribe antibiotics. Follow-up care is a jimenez part of your treatment and safety. Be sure to make and go to all appointments, and call your doctor if you are having problems. It's also a good idea to know your test results and keep a list of the medicines you take. How can you care for yourself at home? ? If your doctor prescribed antibiotics, take them as directed. Do not stop taking them just because you feel better. You need to take the full course of antibiotics. ? Gargle with warm salt water several times a day to help reduce swelling and relieve pain. Mix 1/2 teaspoon of salt in 1 cup of warm water. ? Take an mdvm-kmu-dczjpij pain medicine, such as acetaminophen (Tylenol), ibuprofen (Advil, Motrin), or naproxen (Aleve). Read and follow all instructions on the label. ? Be careful when taking nujo-tgk-ucqvghr cold or flu medicines and Tylenol at the same time. Many of these medicines have acetaminophen, which is Tylenol. Read the labels to make sure that you are not taking more than the recommended dose. Too much acetaminophen (Tylenol) can be harmful. ? Drink plenty of fluids. Fluids may help soothe an irritated throat. Hot fluids, such as tea or soup, may help decrease throat pain. ? Use dlby-kcb-epbujek throat lozenges to soothe pain. Regular cough drops or hard candy may also help. These should not be given to young children because of the risk of choking. ? Do not smoke or allow others to smoke around you. If you need help quitting, talk to your doctor about stop-smoking programs and medicines. These can increase your chances of quitting for good. ? Use a vaporizer or humidifier to add moisture to your bedroom. Follow the directions for cleaning the machine. When should you call for help? Call your doctor now or seek immediate medical care if: ? You have trouble breathing. ? Your sore throat gets much worse on one side. ? You have new or worse trouble swallowing. ? You have a new or higher fever. Watch closely for changes in your health, and be sure to contact your doctor if you do not get better as expected. Where can you learn more? Go to https://www.sambaashnet/patientEd Enter U420 in the search box to learn more about Sore Throat: Care Instructions. Current as of: July 18, 2021 Content Version: 13.3 ? [employer]. Care instructions adapted under license by your healthcare professional. If you have questions about a medical condition or this instruction, always ask your healthcare professional. [employer] disclaims any warranty or liability for your use of this information. BEFORE YOU LEAVE Set up your [facility] account! [employer] is a secure, online health management tool that connects you to portions of your hospital-based electronic medical record, allowing you to see test results, manage appointments, access discharge care instructions and much more. You can access [employer] from a computer, tablet or smartphone. Enrollment/r (more content not included)... [facility] ED Physician Reporton 2022 ED Physician Report COREY PERLA :1990 Registration Date:08/28/2023 Basic Information Time Seen: [] Arrival Mode: Walk-In [] History Source: Patient _ _ [] History limitation: None [] History of Present Illness Patient presents to ED complaining of sore throat. She said it really started last night and was worse today. Her daughter tested positive for strep throat a couple of days ago. Patient reports some fevers last night but did take Tylenol which helped. She has a history of cervical cancer and had a hysterectomy in the past because of this. She was on chemotherapy but has been off of that for a few months. Due to this she is immunocompromised and states that it takes her a long time to get over things and when she gets things she gets them pretty badly. She is alert and oriented in no acute distress no respiratory distress. Denies cough or shortness of breath. Review of Systems ROS negative unless otherwise stated above in HPI Physical Exam Vitals & Measurements Initial: T: 36.5 ?C (Oral) HR: 75 (Peripheral) BP: 127/73 RR: 18 SpO2: 98% O2 Therapy: Room air Latest: HR: 60 (Peripheral) HR: 60 (Monitored) BP: 111/74 SpO2: 100% General: alert, no acute distress Cardiovascular: regular rate and rhythm, normal peripheral perfusion. Respiratory: Lungs CTA, respirations non labored. Extremities: no deformity, no trauma. Neurological: oriented x 4, LOC appropriate for age. Throat is mildly erythematous bilaterally. No exudates no evidence of peritonsillar abscess. No drooling no stridor. Medical Decision Making Flu strep and COVID are negative. However since patient had fever with sore throat and no cough and no known exposure to strep I will send her home with azithromycin. She also has a history of immunocompromise state due to her history of cancer. Patient is comfortable with care plan for home. Reexamination/Reevalu ation Return to ED if anything worsens or changes that concerns you. Follow up with your doctor. Take your home medications as directed. Pt is understanding and comfortable w plan for home. Systolic Blood Pressure: 111 mmHg Diastolic Blood Pressure: 74 mmHg Temperature Oral: 36.5 degC Heart Rate Monitored: 60 bpm Respiratory Rate: 18 br/min Mean Arterial Pressure, Cuff: 85 mmHg SpO2: 100 % Oxygen Therapy: Room air Peripheral Pulse Rate: 60 bpm Discharge/Plan *Discharge Disposition ED Discharge to Home - Ordered -- 08/28/2023 12:09:00 EDT, Constant Order Patient Education Sore Throat Follow Up With When Contact Information COURTNEY PALACIOS, Internal Medicine Within 3 to 5 days [address] [phone] Business (1) Additional Instructions: Assessment This Visit Diagnosis Sore throat J02.9 Orders: azithromycin(Zithroma x Z-Edgardo 250 mg oral tablet), 1 packets, ORAL, ONCE COVID-19 Molecular BRED, STAT, 08/28/2023 11:30:00 EDT, Specimen type: MANAGEMENT TRAINEE MARKETING Swab ED Discharge to Home, 08/28/2023 12:09:00 EDT, Constant Order RAP FLU A AND B(FLU A AND B RAPID TEST), STAT, 08/28/2023 11:31:00 EDT, Specimen type: MANAGEMENT TRAINEE MARKETING Swab RAPID STR(RAPID STREP TEST), STAT, 08/28/2023 11:30:00 EDT, Specimen type: THROAT Problem List/Past Medical History Ongoing Adenocarcinoma of cervix Cervical mass 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 as directed on package labeling. Refills: 0. Unchanged acetaminophen-hydroco done ([place] 5 mg-325 mg oral tablet)1 Tabs Oral EVERY SIX HOURS as needed for pain. Dx: R109. Refills: 0. cephalexin (Keflex 500 mg oral capsule)1 Capsules Oral EVERY EIGHT HOURS for 7 Days. Refills: 0. multivitamin (Nature's Bounty Hair Skin and Nails)1 Tabs Oral DAILY. Allergies No Known Allergies Social History Alcohol - Denies Alcohol Use Sexual Other contraceptive use:none Substance Abuse - Denies Substance Abuse Tobacco Use:10 or more cigarettes (1/2 pack or more)/day in last 30 days Family History Breast cancer..: Grandmother. Cervical cancer..: Mother. Diabetes..: Mother. Health Status Family Member(s) Family Member(s) Relationship: Grandmother, Name: Paternal, Age: Unknown Lab Results Immunology LATEST RESULTS Rapid Strep Ag 08/28/23 11:31 Negative Rapid Influenza A Antigen Test 08/28/23 11:31 Negative Rapid Influenza B Antigen Test 08/28/23 11:31 Negative COVID-19 Molecular BRED 08/28/23 11:31 Negative Diagnostic Results No qualifying data available. [facility] ED Progress Noteon 3 ED Progress Note 1145 Pt to ED for sore throat and AGUERO. States she is on chemo for cervical CA and daughter had strep throat a few days ago. Took Tylenol for possible fever and AGUERO last night with some relief. Daughter at bedside. 1222 Pt ambulated out of the ED after discharge papers and RX discussed. Pt stated understanding of the need to follow-up with PCP and all questions addressed. NAD. [facility] ED Triage Adult-Texton 08-28 ED Triage Adult-Text ED Triage Entered O n: 08/28/2023 11:32 EDT Performed On: 08/28/2023 11:31 EDT by Valerie Altamirano Triage (As Of: 08/28/2023 11:32:26 EDT) Problems(Active) Adenocarcinoma of cervix (SNOMED CT :261910877 ) Name of Problem: Adenocarcinoma of cervix ; Recorder: IDALMIS JIMENEZ; Confirmation: Confirmed ; Classification: Medical ; Code: [id number] ; Contributor System: SpontoChart ; Last Updated: 11/28/2022 11:14 EST ; Life Cycle Date: 11/28/2022 ; Life Cycle Status: Active ; Responsible Provider: IDALMIS JIMENEZ; Vocabulary: SNOMED CT Cervical mass (SNOMED CT :024615169 ) Name of Problem: Cervical mass ; Recorder: IDALMIS JIMENEZ; Confirmation: Confirmed ; Classification: Medical ; Code: [id number] ; Contributor System: SpontoChart ; Last Updated: 10/09/2022 14:49 EST ; Life Cycle Date: 10/09/2022 ; Life Cycle Status: Active ; Responsible Provider: IDALMIS JIMENEZ; Vocabulary: SNOMED CT High risk HPV infection (SNOMED CT :481161277 ) 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 ; Recorder: IDALMIS JIMENEZ; Confirmation: Confirmed ; Classification: Medical ; Code: [id number] ; Contributor System: PowerChart ; Last Updated: 10/09/2022 14:49 EST ; Life Cycle Date: 10/09/2022 ; Life Cycle Status: Active ; Responsible Provider: IDALMIS JIMENEZ; Vocabulary: SNOMED CT HPV in female (SNOMED CT :106851277 ) 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 ; Recorder: Karina Encinas RN; Confirmation: Confirmed ; Classification: Medical ; Code: [id number] ; Contributor System: PowerChart ; Last Updated: 2022 07:37 EST ; Life Cycle Date: 2022 ; Life Cycle Status: Active ; Vocabulary: SNOMED CT Diagnoses(Active) Sore throat - Adult Date: 08/28/2023 ; Diagnosis Type: Reason For Visit ; Confirmation: Confirmed ; Clinical Dx: Sore throat - Adult ; Classification: Medical ; Clinical Service: Non-Specified ; Code: PNED ; Probability: 0 ; Diagnosis Code: [id number] (As Of: 08/28/2023 11:32:26 EDT) Allergies (Active) No Known Allergies Estimated Onset Date: Unspecified ; Created By: Munir Oglesby RN; Reaction Status: Active ; Category: Drug ; Substance: No Known Allergies ; Type: Allergy ; Updated By: Munir Oglesby RN; Reviewed Date: 08/28/2023 11:31 EDT Vitals/Ht/Wt Temperature Oral : 36.5 degC Pulse Rate : 75 bpm Respiratory Rate : 18 br/min Systolic Blood Pressure : 127 mmHg Diastolic Blood Pressure : 73 mmHg SpO2 : 98 % Oxygen Therapy : Room air Pain Symptoms : Yes Numeric Pain Scale : 6 = Moderate Pain VAS Pain Scale Age : VAS (8 yrs & older) Height/Length Dosing : 162 cm(Converted to: 5.31 ft, 63.78 in) Weight Measured Type of Scale : Patient Stated Weight Patient Stated Weight : 52.3 kg(Converted to: 1,844.83 oz, 115.30 lb) Valerie Altamirano - 08/28/2023 11:31 EDT [facility] RAP FLU A AND Bon 08-28-2023 Rapid Influenza A Antigen Test Negative [facility] Comment on above: Result Comment: A po sitive Rapid Influenza A Antigen Test indicates the presence of Influenza A. This is a screening test only and should be correlated with the patient's clinical symptoms. Performed By: #### 5 [id number] ####[facility] [address] [place], [place] [id number] Medical Director: Edison Dasilva MD Rapid Influenza B Antigen Test Negative [facility] Comment on above: Result Comment: A po sitive Rapid Influenza B Antigen Test indicates the presence of Influenza B. This is a screening test only and should be correlated with the patients's clinical symptoms. Performed By: #### 5 [id number] ####[facility] [address] [place], [place] [id number] Medical Director: Edison Dasilva MD RFAB INT QC Present [facility] Comment on above: Performed By: #### 5 [id number] ####[facility] [address] [place] [address] Medical Director: MD JUAQUIN Ruiz STRon 08-28-2023 RS INT QC Present [facility] Comment on above: Performed By: #### 5 [id number] ####[facility] [address] [place] [address] Medical Director: Edison Dasilva MD S. pyogenes Ag IA Ql (Unsp spec) Negative [facility] Comment on above: Result Comment: This assay is for the qualitative detection of Group A Streptococcal antigen in throat specimens. Pharyngitis may be caused by viral or bacterial pathogens other than Group A Streptococcal. Performed By: #### 5 [id number], [id number], [id number] ####[facility] [address] [place] [address] Medical Director: Edison Dasilva MD 36on 05-12-2023 36 Patient called, urinalysis does look normal. Still having some bladder spasms after radical hysterectomy and adjuvant radiotherapy. I did discuss the case with Dr. Hilda Gallegos and she has agreed to see the patient in the office. I did offer consultation with patient and she would like to see Dr. Gallegos before starting any pharmacologic therapy. Order placed for consultation for urogynecology. [facility] 36on 05-08-2023 36 Pt aware of UA results, culture pending. Will call pt when culture results. Pt verbalized understanding, no further questions. [facility] 36 ----- Message from Fernando De La Rosa MD sent at 05/08/2023 6:12 AM EDT ----- Plz call, UA looks good, will await culture. ----- Message ----- From: [facility] Results In Sent: 05/08/2023 6:04 AM EDT To: Fernando De La Rosa MD [facility] Office Visiton 05-07-2023 Follow-up visit [id number] Corey Perla 1990 F Date Provider Department Center 05/07/2023 [id number] DE LA ROSA 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 None Family History Problem Relation Age of Onset Stroke Mother Multiple sclerosis Mother Diabetes Mother Cervical cancer Mother Breast cancer Mother Breast cancer Maternal Grandmother Breast cancer Paternal Grandmother Colon cancer Neg Hx Ovarian cancer Neg Hx Family Status - Relation Status Age at Mother Alive Maternal Grandmother Paternal Grandmother Neg Hx Level of Service:[id number] CO OFFICE/OUTPATIENT ESTABLISHED LOW MDM 20-29 MIN Reason for Visit and Comments: Cervical Cancer [[id number]] [facility] Progress Noteon 05-07-2023 Progress Note Called and spoke víctor Brooks, following up since her office visit this morning. I apologized for missing her at her office visit with Dr. De La Rosa. Notified her that I completed her Treatment Summary and Survivorship Care Plan and will mail it to her home. Confirmed her address. I asked that she review the treatment summary, follow up information, and when to call the office should she experience symptoms. Informed her to keep this documentation for her records and call if she has any questions. She verbalized understanding. Treatment Summary will go out in the mail tomorrow 05/08/23. [facility] Progress Note CC: stage I B3 (p) well-differentiated adenocarcinoma of the endocervix HPI: 32 y.o. 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 On initial exam she was found to have a stage I B2. She was treated with radical hysterectomy bilateral salpingectomy and sentinel lymph node sampling. Final pathology did show evidence of a tumor greater than 4 cm in size. Patient also meet Sedlis criteria. patient met criteria for postoperative radiation therapy. Underwent combined radiotherapy along with weekly cisplatin. This completed on April 02, 2023. INTERVAL SINCE RADIATION: With Cisplatin completed course # 5 of 5 on 04/02/2023 for 5 weeks with concurrent radiation. Radiation Treatments Active No active radiation treatments to show. Historical Pelvic Bed (Started on 02/03/2023) Most recent fraction: 1.8 Gy given on 03/19/2023 Total given: 50.4 Gy / 50.4 Gy (28 of 28 fractions) Elapsed Days: 44 Technique: VMAT/Daily IGRT She does complain of fatigue today. She also has been complaining of severe bladder spasms that happen 4-5 times per day. She was seen in the [facility] emergency room couple weeks ago and was treated for UTI. This did help solve the symptoms for a while. But now she continues to have 4-5 severe bladder spasms a day that will bring her to her knees. Sometimes associated with a small loss of urine. Patient states she underwent a CT scan in the emergency room a couple weeks ago and was told that everything looked good. She denies any dysuria at this time. However feels that she may have another bladder infection. She denies any vaginal bleeding. Is started using her dilator. 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 Kidney stones Past Surgical History: Procedure Laterality Date COLPOSCOPY with LEEP HYSTERECTOMY Abdominal Radical Hysterectomy Bilateral Salpingectomy WISDOM TOOTH EXTRACTION Social History Socioeconomic History Marital status: Single Tobacco Use Smoking status: Every Day Packs/day: 0.50 Years: 15.00 Pack years: 7.50 Types: Cigarettes Smokeless tobacco: Never Vaping Use Vaping Use: Never used Substance and Sexual Activity Alcohol use: Yes Comment: Rarely Drug use: Yes Types: Marijuana Sexual activity: Not Currently Social Determinants of Health Transportation Needs: No Transportation Needs (12/17/2022) PRAPARE - Transportation Lack of Transportation (Medical): No Lack of Transportation (Non-Medical): No Housing Stability: Low Risk (12/17/2022) Housing Stability Vital Sign Unable to Pay for Housing in the Last Year: No Number of Places Lived in the Last Year: 1 Unstable Housing in the Last Year: No Current Outpatient Medications Medication Sig Dispense Refill apixaban (Eliquis) 2.5 MG tablet Take 1 tablet (2.5 mg) by mouth 2 times daily for 28 days. 56 tablet 0 cephalexin (Keflex) 500 MG capsule Take 500 mg by mouth in the morning and 500 mg at noon and 500 mg before bedtime. HYDROcodone-acetamino phen ([place]) 5-325 MG tablet Take 1 tablet by mouth every 4 hours as needed for severe pain (7-10). ondansetron ODT (Zofran-ODT) 4 MG disintegrating tablet phenazopyridine (Pyridium) 200 MG tablet Orally, one tablet 3 times a day until burning subsides; note urine will turn blood red with this medication; you are not bleeding. (Patient not taking: Reported on 04/24/2023) 30 tablet 1 potassium chloride CR (Klor-Con M10) 10 MEQ ER tablet Take 2 tablets (20 mEq) by mouth daily. Do not crush or chew. (Patient not taking: Reported on 05/07/2023) 60 tablet 11 prochlorperazine (Compazine) 10 MG tablet Take 1 tablet (10 mg) by mouth every 6 hours as needed for nausea or vomiting. 30 tablet 2 No current facility-administered medications for this visit. Review of Systems Constitutional: Positive for fatigue. Endocrine: Positive vasomotor symptoms Genitourinary: Positive for difficulty urinating, dysuria and frequency. Negative for vaginal bleeding. Patient has no known allergies. BP 111/74 Pulse 82 Ht 1.626 m (5' 4) Wt 53.1 kg (117 lb) BMI 20.08 kg/m? Physical Exam Vitals and nursing note reviewed. Exam conducted with a database marketing manager present. Constitutional: Appearance: Normal appearance. Abdominal: General: Abdomen is flat. Palpations: Abdomen is soft. Genitourinary: General: Normal vulva. Labia: Right: No lesion. Left: No lesion. Urethra: No urethral lesion. Vagina: Normal. Uterus: Absent. Adnexa: Right adnexa normal and left adnexa normal. Comments: Vaginal cuff is healed well, there is a small area of separation in the upper left vulva. No evidence of recurrent disease is noted. The vagina is soft and supple. There is some bladder tenderness noted on bimanual exam. Lymphadenopathy: Upper Body: Right upper body: No s (more content not included)... Normal [facility] ED Physician Reporton 2022 ED Physician Report Basic Information Chief complaint: Lower abdominal pain History of Present Illness 32-year-old female with a history of cervical adenocarcinoma and total hysterectomy in November of this year. Patient indicates she was doing well until this morning and when she woke up she was having some sharp pain in the mid to lower abdomen/. The pain comes and goes but is very severe at times. She is also having some left flank pain. No dysuria or frequency. She did have an episode of vomiting this morning and has also had some diarrhea. He denies any fever. Patient was treated for urinary tract infection at the end of February of this year. Review of Systems Constitutional: no fever, no chills, no sweats, no weakness Skin: no jaundice, no rash, no lesions, no petechiae ENMT: no ear pain, no sore throat, no congestion, no hoarseness Respiratory: no shortness of breath, no cough, no orthopnea, no wheezing Cardiovascular: no chest pain, no palpitations, no edema Gastrointestinal: moderate nausea, mild vomiting, mild diarrhea, no GI bleeding, patient complains of sharp pain in the mid to lower abdomen intermittent since this morning Genitourinary: no dysuria, no hematuria, no discharge, no pain Musculoskeletal: no back pain, no trauma Neurologic: no headache, no dizziness, no numbness, no weakness Psychiatric: no sleeping problems, no irritability, no mood swings/depression Heme/Lymph: no bleeding tendency, no bruising tendency, no petechiae, no swollen nodes Allergy/Immunologic: no seasonal allergies, no food allergies, no recurrent infections, no impaired immunity Additional ROS info: Except as noted in the above Review of Systems and in the History of Present Illness all other systems have been reviewed and are negative or noncontributory. Physical Exam Vitals & Measurements Initial: T: 36.8 ?C (Oral) HR: 85 (Peripheral) BP: 132/ 100 RR: 18 SpO2: 98% O2 Therapy: Room air General: alert, mild distress. Skin: warm, dry. Head: no trauma, normocephalic. Neck: trachea midline, no adenopathy, no tenderness. Eye: normal conjunctiva, sclera clear. Cardiovascular: regular rate and rhythm, normal peripheral perfusion. Respiratory: lungs CTA, respirations non-labored. Chest Wall: no deformity. Gastrointestinal: soft, non distended, , no _ guarding. Tender in the periumbilical region but no rebound Back: No CVA tenderness Extremities: no deformity, no trauma. Neurological: oriented x 4, LOC appropriate for age, CN II-XII intact, motor strength equal & normal bilaterally, sensation equal & normal bilaterally, speech normal. Psychiatric: cooperative, affect appropriate for age, normal judgement, normal psychiatric thoughts. Medical Decision Making 32-year-old female history of cervical cancer and total hysterectomy presents with onset of mid to lower sharp abdominal pain earlier today. Differential diagnosis includes bowel obstruction, urinary tract infection, pyelonephritis, kidney stone, diverticulitis. The CBC and electrolytes are normal. The urine does show positive leukocyte Estrace and 4 white cells per high-power field. CT scan of the abdomen pelvis was negative for anything acute and the surgical sites appear appropriate. An IV was started and the patient was given IV fluids as well as Toradol and Zofran. She feels much better at this time. She was starting to get some pain back and she was subsequently given 2 mg of morphine IV. Patient is comfortable returning home and will follow-up with her surgeon. Reexamination/Reevalu ation Systolic Blood Pressure: 132 mmHg Diastolic Blood Pressure: 100 mmHg High Temperature Oral: 36.8 degC Respiratory Rate: 18 br/min SpO2: 98 % Oxygen Therapy: Room air Peripheral Pulse Rate: 85 bpm Discharge/Plan *Discharge Disposition ED Discharge to Home - Ordered -- 04/22/2023 15:35:00 EDT, Constant Order Patient Education Abdominal Pain Follow Up With When Contact Information your primary physician Within 1 to 2 days Additional Instructions: 837 NO FAMILY PHYSICIAN Within 3 to 5 days Additional Instructions: Assessment This Visit Diagnosis Abdominal pain, acute R10.9 Orders: acetaminophen-hydroco done([place] 5 mg-325 mg oral tablet), 1 tabs, ORAL, [id number], PRN cephalexin(Keflex 500 mg oral capsule), 500 mg= 1 caps, ORAL, [id number] CBCWD, STAT, 04/22/2023 13:17:00 EDT COMPMETA, STAT, 04/22/2023 13:17:[address] ABD PELVIS W IV CONTRAST, 04/22/2023 13:17:00 EDT, STAT, TENDERNESS, Oral Contrast Needed: No, Cart, Isolation Precautions: NONE ED Discharge to Home, 04/22/2023 15:35:00 EDT, Constant Order LIP(LIPASE), STAT, 04/22/2023 13:17:00 EDT UA, STAT, 04/22/2023 13:17:00 EDT Problem List/Past Medical History Ongoing Adenocarcinoma of cervix Cervical mass 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 Normal [facility] Hospital Encounteron 023 Hospital Encounter [id number] Corey Perla 1990 F Date Provider Department Center 04/24/2023 JAYY HELM [facility] RAD ON None Family History Problem Relation Age of Onset Stroke Mother Multiple sclerosis Mother Diabetes Mother Cervical cancer Mother Breast cancer Mother Breast cancer Maternal Grandmother Breast cancer Paternal Grandmother Colon cancer Neg Hx Ovarian cancer Neg Hx Family Status - Relation Status Age at Mother Alive Maternal Grandmother Paternal Grandmother Neg Hx Level of Service:81686 CO OFFICE/OUTPATIENT ESTABLISHED LOW MDM 20-29 MIN Reason for Visit and Comments: Follow-up [324897] [facility] Nursing Noteon 04-24-2023 Nursing Note Under the direction of Dr. Ocampo, the RN gave the patient a small and medium vaginal dilator. The RN gave and reviewed vaginal dilator use and care. The patient verbalized understanding. [facility] Nursing Note The patient is here at [facility] by herself for follow up with Dr. Ocampo. The patient denies any skin issues at the previous site of radiation. The patient states she is having 7/10 right abdominal pain that radiates to her right rib cage. She states she was at [facility] ED on 04/22/23. She was informed by the ED physician that she has a bladder infection. She was started on Keflex 500 mg by mouth every 8 hours. The patient states her appetite is poor. She reports a fatigue level of 4/10 and it has improve slightly since the completion of radiation. She states she is sleeping well. The patient denies any vaginal dryness, spotting, bleeding, or discharge. She denies any urinary or bowel issues at the current time. She has a follow up appointment scheduled with Dr. De La Rosa for 04/30/23. [facility] Progress Noteon 04-24-2023 Progress Note RADIATION ONCOLOGY FOLLOW UP PATIENT: Corey Perla DATE OF SERVICE: 04/24/2023 : 1990 AGE: 32 y.o. PRIMARY SITE AND HISTOPATHOLOGY: pT1b3, G1 adenocarcinoma of the cervix (Stage I) Problem List Items Addressed This Visit None Cancer Staging No matching staging information was found for the patient. HISTORY OF PRESENT ILLNESS: History of cervix cancer treated with external beam radiation and INTERVAL SINCE RADIATION: PRIMARY SITE AND HISTOPATHOLOGY: pT1b3, G1 adenocarcinoma of the cervix (Stage I) Problem List Items Addressed This Visit Genitourinary Malignant neoplasm of endocervix (HCC) Relevant Orders Rad Onc Msq Treatment Summary (Completed) HISTORY OF PRESENT ILLNESS: Status post abdominal radical hysterectomy bilateral salpingectomy and bilateral for proxy for a stage I B1 endocervical carcinoma on 12/17/2022 with the findings below. 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 -PROLIFERATIVE PHASE ENDOMETRIUM -UNREMARKABLE BILATERAL FALLOPIAN TUBES -UNREMARKABLE PARAMETRIUM -TWO LYMPH PARAMETRIAL NODES NEGATIVE FOR METASTATIC CARCINOMA (0/2) -NEGATIVE RESECTION MARGINS. C. SENTINEL LYMPH NODE, LEFT PELVIC, DISSECTION - -FIVE LYMPH NODES NEGATIVE FOR METASTATIC CARCINOMA (0/5) At radiation oncology consultation she had unrelated to her surgery a right lower quadrant hematoma, tender with abdominal pain, fatigue that she states was prior to her surgery and decreased appetite which we referred her to pain management prior to her radiation therapy and cisplatin. INTERVAL SINCE RADIATION: With Cisplatin completed course # 5 of 5 on 04/02/2023 for 5 weeks with concurrent radiation. Radiation Treatments Active No active radiation treatments to show. Historical Pelvic Bed (Started on 02/03/2023) Most recent fraction: 1.8 Gy given on 03/19/2023 Total given: 50.4 Gy / 50.4 Gy (28 of 28 fractions) Elapsed Days: 44 Technique: VMAT/Daily IGRT STATUS OF PATIENT AT THE FINISH OF THE TREATMENT: Developed urinary tract infection and suffered from abdominal pain. INTERVAL HISTORY: having 7/10 right abdominal pain that radiates to her right rib cage. She states she was at [facility] ED on 04/22/23. She was informed by the ED physician that she has a bladder infection. She was started on Keflex 500 mg by mouth every 8 hours. The patient states her appetite is poor. She reports a fatigue level of 4/10 and it has improve slightly since the completion of radiation. She states she is sleeping well. The patient denies any vaginal dryness, spotting, bleeding, or discharge. She denies any urinary or bowel issues at the current time. 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 HYDROcodone-acetamino phen ([place]) 5-325 MG tablet Take 1 tablet by mouth every 4 hours as needed for severe pain (7-10). apixaban (Eliquis) 2.5 MG tablet Take 1 tablet (2.5 mg) by mouth 2 times daily for 28 days. 56 tablet 0 ondansetron ODT (Zofran-ODT) 4 MG disintegrating tablet phenazopyridine (Pyridium) 200 MG tablet Orally, one tablet 3 times a day until burning subsides; note urine will turn blood red with this medication; you are not bleeding. (Patient not taking: Reported on 04/24/2023) 30 tablet 1 potassium chloride CR (Klor-Con M10) 10 MEQ ER tablet Take 2 tablets (20 mEq) by mouth daily. Do not crush or chew. 60 tablet 11 prochlorperazine (Compazine) 10 MG tablet Take 1 tablet (10 mg) by mouth every 6 hours as needed for nausea or vomiting. 30 tablet 2 No current facility-administered medications for this encounter. REVIEW OF SYSTEMS: Review of Systems - Oncology See Interval history for current complaints. All other systems are negative. ECOG Performance Status: 0 Objective PHYSICAL EXAM: BP 115/60 Pulse 77 Temp 97.7 ?F (36.5 ?C) Resp 18 Ht 5' 4 (1.626 m) Wt 119 lb (54 kg) SpO2 98% BMI 20.43 kg/m? /Pain Score: 7 Physical Exam Vitals and nursing note reviewed. Constitutional: Appearance: Normal appearance. Cardiovascular: Rate and Rhythm: Normal rate and regular rhythm. Pulmonary: Effort: Pulmonary effort is normal. Breath sounds: Normal breath sounds. Abdominal: Comments: Still has ri (more content not included)... Normal [facility]S AUTO DIFFon 04-22-2023 Baso Count 0.10 x1000 Normal 0.00-0.20 [facility] Comment on above: Performed By: #### C [id number] #### [facility] [address] [place] [address] Advertising Director: Edison Dasilva MD Basos % 0.4 % Normal [facility] Comment on above: Performed By: #### C [id number] #### [facility] [address] [place] [address] Advertising Director: Edison Dasilva MD Eos Count 0.10 x1000 Normal 0.00-0.50 [facility] Comment on above: Performed By: #### C [id number] #### [facility] [address] [place], [place] [phone] Advertising Director: Edison Dasilva MD Eosinophils/100 WBC (Bld) 0.5 % Normal [facility] Comment on above: Performed By: #### C [id number] #### [facility] [address] [place], [place] [phone] Advertising Director: Edison Dasilva MD Lymph Count 0.70 x1000 Low 1.20-4.80 [facility] Comment on above: Performed By: #### C [id number] #### [facility] [address] [place] [address] Advertising Director: Edison Dasilva MD Lymphocytes/100 WBC (Bld) 6.0 % Normal [facility] Comment on above: Performed By: #### C D:[id number] #### [facility] [address] [place] [address] Advertising Director: Edison Dasilva MD Perry Count 1.10 x1000 High 0.10-1.00 [facility] Comment on above: Performed By: #### C [id number] #### [facility] [address] [place] [address] Advertising Director: Edison Dasilva MD Monocytes/100 WBC (Bld) 9.1 % Normal [facility] Comment on above: Performed By: #### C D:[id number] #### [facility] [address] [place] [address] Advertising Director: Edison Dasilva MD Neutrophil Count (ANC) 9.90 x1000 High 1.40-8.80 [facility] Comment on above: Performed By: #### C [id number] #### [facility] [address] [place] [address] Advertising Director: Eidson Dasilva MD Neutrophils/100 WBC (Bld) 84.0 % Normal [facility] Comment on above: Performed By: #### C [id number] #### [facility] [address] [place] [address] Advertising Director: Edison Dasilva MD Red Blood Cell Morphology See Notes Abnormal [facility] Comment on above: Result Comment: Anis ocytosis 2+ Performed By: #### C D:[id number] #### [facility] [address] [place] [address] Advertising Director: Edison Dasilva MD Scan Differential Diff Scd Normal [facility] Comment on above: Result Comment: Slid e reviewed by technologist. Performed By: #### C D:[id number] #### [facility] [address] [address] Advertising Director: Edison Dasilva MD COMPMETAon 04-22-2023 GFR Estimated 84 Normal [facility] Comment on above: Result Comment: The GFR is calculated and is Age, Sex, and Race adjusted. Performed By: #### C D:[id number] #### [facility] [address] [place] [address] Advertising Director: Edison Dasilva MD Albumin [Mass/Vol] 4.3 g/dL Normal 3.4-5.0 [facility] Comment on above: Performed By: #### C [id number] #### [facility] [address] [place] [address] Advertising Director: Edison Dasilva MD Albumin/Globulin [Mass ratio] 1.1 {ratio} Normal [facility] Comment on above: Performed By: #### C [id number] #### [facility] [address] [place], [place] [phone] Advertising Director: Edison Dasilva MD Alk Phos 123 unit/L High 45-117 [facility] Comment on above: Performed By: #### C D:[id number] #### [facility] [address] [place], [place] [phone] Advertising Director: Edison Dasilva MD Bilirubin [Mass/Vol] 0.30 mg/dL Normal 0.20-1.00 [facility] Comment on above: Result Comment: Use of this assay is not recommended for patients undergoing treatment with eltrombopag due to the potential for falsely elevated results. Performed By: #### C D:[id number] #### [facility] [address] [place], [place] [phone] Advertising Director: Edison Dasilva MD Calcium [Mass/Vol] 9.5 mg/dL Normal 8.5-10.5 [facility] Comment on above: Performed By: #### C [id number] #### [facility] [address] [place] [address] Advertising Director: Edison Dasilva MD Chloride [Moles/Vol] 103 mmol/L Normal 100-109 [facility] Comment on above: Performed By: #### C [id number] #### [facility] [address] [place] [address] Advertising Director: Edison Dasilva MD CO2 [Moles/Vol] 25.6 mmol/L Normal 21.0-32.0 [facility] Comment on above: Performed By: #### C D:[id number] #### [facility] [address] [place] [address] Advertising Director: Edison Dasilva MD Creatinine [Mass/Vol] 0.8 mg/dL Normal 0.6-1.0 [facility] Comment on above: Performed By: #### C [id number] #### [facility] [address] [place] [address] Advertising Director: Edison Dasilva MD Globulin (S) [Mass/Vol] 3.9 g/dL Normal [facility] Comment on above: Performed By: #### C D:[id number] #### [facility] [address] [place] [address] Advertising Director: Edison Dasilva MD Glucose [Mass/Vol] 105 mg/dL High 72-100 [facility] Comment on above: Result Comment: Raven puncture should occur prior to sulfasalazine administration due to the potential for falsely depressed results. Venipuncture should occur prior to sulfapyridine administration due to the potential falsely elevated results. Baseline assay values before administration of sulfasalazine and sulfapyridine therapy would not be affected. Performed By: #### C D:[id number] #### [facility] [address] [place], [place] [phone] Advertising Director: Edison Dasilva MD GOT 16 unit/L Normal 15-37 [facility] Comment on above: Result Comment: Raven puncture should occur prior to sulfasalazine administration due to the potential for falsely depressed results. Baseline assay values before administration of sulfasalazine and sulfapyridine therapy would not be affected. Performed By: #### C D:[id number] #### [facility] [address] [place] [address] Advertising Director: Edison Dasilva MD GPT 17 unit/L Normal 14-59 [facility] Comment on above: Result Comment: Raven puncture should occur prior to sulfasalazine administration due to the potential for falsely depressed results. Baseline assay values before administration of sulfasalazine and sulfapyridine therapy would not be affected. Performed By: #### C D:[id number] #### [facility] [address] [place], [place] [address] Advertising Director: Edison Dasilva MD Osmolality [Osmolality] 283 mosm/kg Normal 275-295 [facility] Comment on above: Performed By: #### C D:[id number] #### [facility] [address] [place], [place] [address] Advertising Director: Edison Dasilva MD Potassium [Moles/Vol] 3.5 mmol/L Normal 3.5-5.1 [facility] Comment on above: Performed By: #### C [id number] #### [facility] [address] [place], [place] [address] Advertising Director: Edison Dasilva MD Protein [Mass/Vol] 8.2 g/dL Normal 6.0-8.5 [facility] Comment on above: Performed By: #### C [id number] #### [facility] [address] [place], [place] [address] Advertising Director: Edison Dasilva MD Sodium [Moles/Vol] 141 mmol/L Normal 135-145 [facility] Comment on above: Performed By: #### C [id number] #### [facility] [address] [place], [place] [address] Advertising Director: Edison Dasilva MD Urea nitrogen [Mass/Vol] 15 mg/dL Normal 10-20 [facility] Comment on above: Performed By: #### C D:[id number] #### [facility] [address] [place] [address] Advertising Director: Edison Dasilva MD Urea nitrogen/Creatinine [Mass ratio] 18.8 mg/mg Normal [facility] Comment on above: Performed By: #### C D:[id number] #### [facility] [address] [id number] Advertising Director: Edison Dasilva MD CT ABD PELVIS W IV CONTRASTo n 04-22-2023 CT ABD PELVIS W IV CONTRAST CT ABDOMEN AND PELVIS WITH CONTRAST TECHNIQUE: Axial images were taken through the abdomen and pelvis after the administration of IV contrast. All CT scans at this facility use dose modulation, iterative reconstruction, and/or weight based dosing when appropriate to reduce radiation dose to as low as reasonably achievable HISTORY: TENDERNESS COMPARISON: Abdominal/pelvic CT, 11/18/2021 FINDINGS: Lower chest: Atelectatic changes noted at the bilateral lung bases. The visualized cardiac and posterior mediastinal structures are unremarkable. ABDOMEN: The liver appears unremarkable. There is no evidence for mass or intrahepatic biliary ductal dilatation. The gallbladder appears unremarkable. There is no evidence for gallbladder wall thickening or pericholecystic fluid. The adrenal glands, pancreas and spleen are normal. Punctate nonobstructing 1 mm lower pole left kidney stones identified on images 45 and 48. There is also a 2 mm nonobstructing mid right kidney stone seen on image 46. The kidneys are otherwise unremarkable. There is no evidence for hydronephrosis or ureterolithiasis. The large and small bowel of the abdomen and pelvis appears unremarkable. The appendix is visualized posterior to the cecum. No inflammatory changes are identified to suggest acute appendicitis. The aorta is normal in caliber. There is no evidence for pathologically enlarged adenopathy. PELVIS: The bladder appears unremarkable. There is no intrapelvic free air or free fluid. The uterus is not visualized compatible with previous hysterectomy. No acute soft tissue abnormality is identified. No acute osseous abnormality is seen. IMPRESSION: No acute abnormality in the abdomen or pelvis. Nonobstructing bilateral kidney stones. Status post hysterectomy. Normal appendix. Electronically signed by: Craig Skelton MD 04/22/2023 1:50 PM CDT Technologist: SOCORRO Dictated By: CRAIG SKELTON MD Signed By: CRAIG SKELTON MD Signed Out: 04/22/23 14:50:45 Normal [facility] ED Adult Data - Texton 04-22 ED Adult Data - Text ED Adult Data Enter ed On: 04/22/2023 13:20 EDT Performed On: 04/22/2023 13:19 EDT by Zoie Solis RN Arrival Information Information Given by : Patient Referral Source ED : Home [facility] Mode of Arrival : Car / Walk-In Airway : Normal Breathing : Normal Circulation : Normal Zoie Solis RN - 04/22/2023 13:19 EDT Screening-General Meds Triage : NA Accept Blood Products if Necessary : Yes Immunizations Current : Yes Last Tetanus : None received Preferred Verbal : Kosovan Preferred Written : Kosovan Zoie Solis RN - 04/22/2023 13:19 EDT Depression Screening Patient able to verbalize? : Yes Feeling Down, Depressed, Hopeless : Not at all Little Interest - Pleasure in Activities : Not at all Initial Depression Screen Score : 0 Depression Screening Score 0 : No IP Pt being evaluated or treated for BH conditions : No Zoie Solis RN - 04/22/2023 13:19 EDT Screening-Safety Abuse/Violence Concerns? : Patient denies Does the patient have a medically restricted extremity? : No Zoie Solis RN - 04/22/2023 13:19 EDT Problem List Problem List obtained from : Patient Zoie Solis RN - 04/22/2023 13:19 EDT (As Of: 04/22/2023 13:20:56 EDT) Problems(Active) Adenocarcinoma of cervix (SNOMED CT :855167556 ) Name of Problem: Adenocarcinoma of cervix ; Recorder: IDALMIS JIMENEZ; Confirmation: Confirmed ; Classification: Medical ; Code: [id number] ; Contributor System: [employer] ; Last Updated: 11/28/2022 11:14 EST ; Life Cycle Date: 11/28/2022 ; Life Cycle Status: Active ; Responsible Provider: IDALMIS JIMENEZ; Vocabulary: SNOMED CT Cervical mass (SNOMED CT :571411557 ) Name of Problem: Cervical mass ; Recorder: IDALMIS JIMENEZ; Confirmation: Confirmed ; Classification: Medical ; Code: [id number] ; Contributor System: [employer] ; Last Updated: 10/09/2022 14:49 EST ; Life Cycle Date: 10/09/2022 ; Life Cycle Status: Active ; Responsible Provider: IDALMIS JIMENEZ; Vocabulary: SNOMED CT High risk HPV infection (SNOMED CT :366783415 ) 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 ; Recorder: IDALMIS JIMENEZ; Confirmation: Confirmed ; Classification: Medical ; Code: [id number] ; Contributor System: [employer] ; Last Updated: 10/09/2022 14:49 EST ; Life Cycle Date: 10/09/2022 ; Life Cycle Status: Active ; Responsible Provider: IDALMIS JIMENEZ; Vocabulary: SNOMED CT HPV in female (SNOMED CT :769023082 ) 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 ; Recorder: Karina Encinas RN; Confirmation: Confirmed ; Classification: Medical ; Code: [id number] ; Contributor System: [employer] ; Last Updated: 2022 07:37 EST ; Life Cycle Date: 2022 ; Life Cycle Status: Active ; Vocabulary: SNOMED CT Diagnoses(Active) Abdominal pain Date: 04/22/2023 ; Diagnosis Type: Reason For Visit ; Confirmation: Confirmed ; Clinical Dx: Abdominal pain ; Classification: Medical ; Clinical Service: Non-Specified ; Code: IMO ; Probability: 0 ; Diagnosis Code: 96829 Procedure History ED Devices Present on Arrival To ED : None Urinary Catheter Present on Admit to ED : No Zoie Solis RN - 04/22/2023 13:19 EDT - Procedure History (As Of: 04/22/2023 13:20:56 EDT) Procedure Dt/Tm: 2003 ; Anesthesia Minutes: 0 ; Procedure Name: Gardasil vaccine series completed ; Procedure Minutes: 0 Procedure Dt/Tm: 11/15/2022 ; Provider: IDALMIS JIMENEZ; Anesthesia Minutes: 0 ; Procedure Name: HYSTEROSCOPY D&C ; Procedure Minutes: 0 Anesthesia Minutes: 0 ; Procedure Name: [place] teeth extraction ; Procedure Minutes: 0 Social History Does pt have any alcohol,drugs or tobacco : No Do you consume Alcohol : No Social History obtained from : Patient Zoie Solis RN - 04/22/2023 13:19 EDT Social History (As Of: 04/22/2023 13:20:56 EDT) Alcohol: Denies Alcohol Use (Last Updated: 10/09/2022 09:17:27 EST by Anne Marie Linn MA ) Tobacco: 10 or more cigarettes (1/2 pack or more)/day in last 30 days Tobacco Use:. (Last Updated: 11/22/2021 13:34:49 EST by Glory Dumont MA) Substance Abuse: Denies Substance Abuse (Last Updated: 10/31/2022 11:04:54 EST by Sanchez Henderson RN ) Sexual: Other contraceptive use: none. (Last Updated: 10/09/2022 09:17:36 EST by Anne Marie Linn MA) Infection Screening Travel outside US within past 30 days : No Exposure AND/OR close contact with a person under investigation or laboratory-confirmed COVID-19 individual within 14 days of symptom onset AND/OR any of the following: : No Do you live/work in a high risk situation (congregated living, hemodialysis, infusion clinic, jail, assisted living, retirement, homeless intermediate, etc.)? : No Zoie Solis RN - 04/22/2023 13:19 EDT Normal [facility] ED Discharge Educationon ED Discharge Education Gastrointestinal Abdominal Pain: Care Instructions Your Care Instructions Abdominal pain has many possible causes. Some aren't serious and get better on their own in a few days. Others need more testing and treatment. If your pain continues or gets worse, you need to be rechecked and may need more tests to find out what is wrong. You may need surgery to correct the problem. Don't ignore new symptoms, such as fever, nausea and vomiting, urination problems, pain that gets worse, and dizziness. These may be signs of a more serious problem. Your doctor may have recommended a follow-up visit in the next 8 to 12 hours. If you are not getting better, you may need more tests or treatment. The doctor has checked you carefully, but problems can develop later. If you notice any problems or new symptoms, get medical treatment right away. Follow-up care is a jimenez part of your treatment and safety. Be sure to make and go to all appointments, and call your doctor if you are having problems. It's also a good idea to know your test results and keep a list of the medicines you take. How can you care for yourself at home? ? Rest until you feel better. ? To prevent dehydration, drink plenty of fluids. Choose water and other clear liquids until you feel better. If you have kidney, heart, or liver disease and have to limit fluids, talk with your doctor before you increase the amount of fluids you drink. ? If your stomach is upset, eat mild foods, such as rice, dry toast or crackers, bananas, and applesauce. Try eating several small meals instead of two or three large ones. ? Wait until 48 hours after all symptoms have gone away before you have spicy foods, alcohol, and drinks that contain caffeine. ? Do not eat foods that are high in fat. ? Avoid anti-inflammatory medicines such as aspirin, ibuprofen (Advil, Motrin), and naproxen (Aleve). These can cause stomach upset. Talk to your doctor if you take daily aspirin for another health problem. When should you call for help? Call 911 anytime you think you may need emergency care. For example, call if: ? You passed out (lost consciousness). ? You pass maroon or very bloody stools. ? You vomit blood or what looks like coffee grounds. ? You have new, severe belly pain. Call your doctor now or seek immediate medical care if: ? Your pain gets worse, especially if it becomes focused in one area of your belly. ? You have a new or higher fever. ? Your stools are black and look like tar, or they have streaks of blood. ? You have unexpected vaginal bleeding. ? You have symptoms of a urinary tract infection. These may include: ? Pain when you urinate. ? Urinating more often than usual. ? Blood in your urine. ? You are dizzy or lightheaded, or you feel like you may faint. Watch closely for changes in your health, and be sure to contact your doctor if: ? You are not getting better after 1 day (24 hours). Where can you learn more? Go to https://www.RESAAS.net/patientEd Enter E907 in the search box to learn more about Abdominal Pain: Care Instructions. Current as of: January 16, 2022 Content Version: 13.3 ? [employer]. Care instructions adapted under license by your healthcare professional. If you have questions about a medical condition or this instruction, always ask your healthcare professional. [employer] disclaims any warranty or liability for your use of this information. Normal [facility] ED Emergency Severity Index Adult-Texton 04-22-2023 ED Emergency Severity Index Adult-Text ANDREA - Adult Entered On: 04/22/2023 12:51 EDT Performed On: 04/22/2023 12:51 EDT by Rosa Mcbride RN DCP GENERIC CODE Visit Reason : ABD PAIN Tracking Triage Date/Time : 04/22/2023 12:51 EDT Tracking Reg Status : Requested Tracking Acuity : 3-Urgent Tracking Group : Rosa Malloy RN - 04/22/2023 12:51 EDT [facility] ED Nrsing Adlt Triage Sep Sc rning - Texton 04-22-2023 ED Nrsing Adlt Triage Sep Scrning - Text ED Nursing Adult Triage Sepsis Screening Tool Entered On: 04/22/2023 13:18 EDT Performed On: 04/22/2023 13:18 EDT by Zoie Solis RN Adult Sepsis Screening Sepsis Infection Screening ED : No Zoie Solis RN - 04/22/2023 13:18 EDT Normal [facility] ED Patient Summaryon 023 ED Patient Summary [facility] Discharge Instructions [address] [place] [address] (Patient Copy) Name: COREY PERLA : 1990 Allergies: No Known Allergies Diagnosis: Abdominal pain, acute Visit Date: 04/22/2023 12:50:38 Current Date Time: 04/22/2023 16:30:18 Address: [address] [place] [address] Phone: [phone] Primary Care Provider: Name: NO FAMILY PHYSICIAN, 837 Phone: Emergency Department Care Providers: Primary Physician: SILVIA GARCIA MD Thank you for choosing [facility] for your emergency care. You are very important to us. Our goal is to demonstrate our high quality medical care, and provide you with a very good patient experience. You may receive a survey about our service. Please take the time to complete the survey and return it so we can continue to enhance our service. Thank you again for allowing the [facility] Emergency Department to care for your medical needs. If you have questions about your care or follow up information please contact us at [phone]. Follow-Up Instructions COREY PERLA has been given these follow-up instructions: With: Address: When: your primary physician Within 1 to 2 days With: Address: When: [address] NO FAMILY PHYSICIAN Within 3 to 5 days Patient Education Materials JOHNNY COREY has been given the following patient education materials: Abdominal Pain: Care Instructions Your Care Instructions Abdominal pain has many possible causes. Some aren't serious and get better on their own in a few days. Others need more testing and treatment. If your pain continues or gets worse, you need to be rechecked and may need more tests to find out what is wrong. You may need surgery to correct the problem. Don't ignore new symptoms, such as fever, nausea and vomiting, urination problems, pain that gets worse, and dizziness. These may be signs of a more serious problem. Your doctor may have recommended a follow-up visit in the next 8 to 12 hours. If you are not getting better, you may need more tests or treatment. The doctor has checked you carefully, but problems can develop later. If you notice any problems or new symptoms, get medical treatment right away. Follow-up care is a jimenez part of your treatment and safety. Be sure to make and go to all appointments, and call your doctor if you are having problems. It's also a good idea to know your test results and keep a list of the medicines you take. How can you care for yourself at home? ? Rest until you feel better. ? To prevent dehydration, drink plenty of fluids. Choose water and other clear liquids until you feel better. If you have kidney, heart, or liver disease and have to limit fluids, talk with your doctor before you increase the amount of fluids you drink. ? If your stomach is upset, eat mild foods, such as rice, dry toast or crackers, bananas, and applesauce. Try eating several small meals instead of two or three large ones. ? Wait until 48 hours after all symptoms have gone away before you have spicy foods, alcohol, and drinks that contain caffeine. ? Do not eat foods that are high in fat. ? Avoid anti-inflammatory medicines such as aspirin, ibuprofen (Advil, Motrin), and naproxen (Aleve). These can cause stomach upset. Talk to your doctor if you take daily aspirin for another health problem. When should you call for help? Call 911 anytime you think you may need emergency care. For example, call if: ? You passed out (lost consciousness). ? You pass maroon or very bloody stools. ? You vomit blood or what looks like coffee grounds. ? You have new, severe belly pain. Call your doctor now or seek immediate medical care if: ? Your pain gets worse, especially if it becomes focused in one area of your belly. ? You have a new or higher fever. ? Your stools are black and look like tar, or they have streaks of blood. ? You have unexpected vaginal bleeding. ? You have symptoms of a urinary tract infection. These may include: ? Pain when you urinate. ? Urinating more often than usual. ? Blood in your urine. ? You are dizzy or lightheaded, or you feel like you may faint. Watch closely for changes in your health, and be sure to contact your doctor if: ? You are not getting better after 1 day (24 hours). Where can you learn more? Go to https://www.RESAAS.net/patientEd Enter E907 in the search box to learn more about Abdominal Pain: Care Instructions. Current as of: January 16, 2022 Content Version: 13.3 ? [employer]. Care instructions adapted under license by your healthcare professional. If you have questions about a medical condition or this instruction, always ask your healthcare professional. [employer] (more content not included)... Normal [facility] ED Progress Noteon 3 ED Progress Note 1300 PT TO ED WITH C/O ABDOMINAL PAIN SINCE THIS AM PT C/O INTERMITTENT SHARP PAIN STS PAIN IS ALL OVER PT C/O PAIN STARTED JUST ABOVE INCISIONAL LINE FROM HYSTERECTOMY IN 01/02 NO REDNESS NO DRAINAGE NOTED PT C/O LOOSE STOOL BUT STS SHE JUST FIISHED CHEMOTHERAPY AND RADIATIOPN 3 WEEKS AGO AND STS SHE HAD 6 WEEKS OF BOTH 1340 MEDICATED PER ORDERS PT UPDATED ON POC WILL CONTINUE TO MONITOR AWAITING CT 1400 PT STS PAIN DECREASED TO 45/10 PT UPDATED ON POC WILL CONTINEU TO MONITOR 16[address] TO [address]IVE PT HOME DC INSTRUCTIONS GIVEN TO PT PT VERBALZIED UNDERSTANDING VSS Normal [facility] ED Triage Adult-Texton 04-22 ED Triage Adult-Text ED Triage Entered O n: 04/22/2023 13:19 EDT Performed On: 04/22/2023 13:18 EDT by Zoie Solis RN Triage (As Of: 04/22/2023 13:19:15 EDT) Problems(Active) Adenocarcinoma of cervix (SNOMED CT :169647708 ) Name of Problem: Adenocarcinoma of cervix ; Recorder: IDALMIS JIMENEZ; Confirmation: Confirmed ; Classification: Medical ; Code: [id number] ; Contributor System: [employer] ; Last Updated: 11/28/2022 11:14 EST ; Life Cycle Date: 11/28/2022 ; Life Cycle Status: Active ; Responsible Provider: IDALMIS JIMENEZ; Vocabulary: SNOMED CT Cervical mass (SNOMED CT :297675663 ) Name of Problem: Cervical mass ; Recorder: IDALMIS JIMENEZ; Confirmation: Confirmed ; Classification: Medical ; Code: [id number] ; Contributor System: [employer] ; Last Updated: 10/09/2022 14:49 EST ; Life Cycle Date: 10/09/2022 ; Life Cycle Status: Active ; Responsible Provider: IDALMIS JIMENEZ; Vocabulary: SNOMED CT High risk HPV infection (SNOMED CT :674476617 ) 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 ; Recorder: IDALMIS JIMENEZ; Confirmation: Confirmed ; Classification: Medical ; Code: [id number] ; Contributor System: [employer] ; Last Updated: 10/09/2022 14:49 EST ; Life Cycle Date: 10/09/2022 ; Life Cycle Status: Active ; Responsible Provider: IDALMIS JIMENEZ; Vocabulary: SNOMED CT HPV in female (SNOMED CT :621199731 ) 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 ; Recorder: Karina Encinas RN; Confirmation: Confirmed ; Classification: Medical ; Code: [id number] ; Contributor System: [employer] ; Last Updated: 2022 07:37 EST ; Life Cycle Date: 2022 ; Life Cycle Status: Active ; Vocabulary: SNOMED CT Diagnoses(Active) Abdominal pain Date: 04/22/2023 ; Diagnosis Type: Reason For Visit ; Confirmation: Confirmed ; Clinical Dx: Abdominal pain ; Classification: Medical ; Clinical Service: Non-Specified ; Code: IMO ; Probability: 0 ; Diagnosis Code: 07004 (As Of: 04/22/2023 13:19:15 EDT) Allergies (Active) No Known Allergies Estimated Onset Date: Unspecified ; Created By: Munir Oglesby RN; Reaction Status: Active ; Category: Drug ; Substance: No Known Allergies ; Type: Allergy ; Updated By: Munir Oglesby RN; Reviewed Date: 04/22/2023 13:18 EDT Vitals/Ht/Wt Temperature Oral : 36.8 degC Pulse Rate : 85 bpm Respiratory Rate : 18 br/min Systolic Blood Pressure : 132 mmHg Diastolic Blood Pressure : 100 mmHg (HI) SpO2 : 98 % Oxygen Therapy : Room air Pain Symptoms : Yes Numeric Pain Scale : 10 = Severe Pain VAS Pain Scale Age : VAS (8 yrs & older) Height/Length Dosing : 162.56 cm(Converted to: 5.33 ft, 64.00 in) Weight Measured Type of Scale : Patient Stated Weight Patient Stated Weight : 53.6 kg(Converted to: 1,890.68 oz, 118.17 lb) Zoie Solis RN - 04/22/2023 13:18 EDT Normal [facility] HEMOon 06-13-2023 DIFF? No Normal [facility] Comment on above: Performed By: #### C [id number] #### [facility] [address] [place], [place] [id number] Advertising Director: Edison Dasilva MD [facility] Actions See Notes Abnormal [facility] Comment on above: Result Comment: Scan for RBC Morphology. Scan for RBC Morphology SNV Performed By: #### C [id number] #### [facility] [address] [place], [place] [id number] Advertising Director: Edison Dasilva MD Erythrocyte distribution width (RBC) [Ratio] 20.0 % High 11.5-14.5 [facility] Comment on above: Performed By: #### C [id number] #### [facility] [address] [place] [address] Advertising Director: Edison Dasilva MD Hematocrit (Bld) [Volume fraction] 33.9 % Low 36.0-46.0 [facility] Comment on above: Performed By: #### C [id number] #### [facility] [address] [place] [address] Advertising Director: Edison Dasilva MD Hemoglobin (Bld) [Mass/Vol] 11.5 g/dL Low 12.0-16.0 [facility] Comment on above: Performed By: #### C [id number] #### [facility] [address] [place] [address] Advertising Director: Edison Dasilva MD Instr WBC 11.8 Normal [facility] Comment on above: Performed By: #### C [id number] #### [facility] [address] [place], [place] [id number] Advertising Director: Edison Dasilva MD MCH (RBC) [Entitic mass] 33.8 pg Normal 27.0-34.0 [facility] Comment on above: Performed By: #### C [id number] #### [facility] [address] [place] [address] Advertising Director: Edison Dasilva MD MCHC (RBC) [Mass/Vol] 33.8 g/dL Normal 32.0-37.0 [facility] Comment on above: Performed By: #### C [id number] #### [facility] [address] [place] [address] Advertising Director: Edison Dasilva MD MCV (RBC) [Entitic vol] 100.0 fL Normal 80.0-100.0 [facility] Comment on above: Performed By: #### C [id number] #### [facility] [address] [place] [address] Advertising Director: Edison Dasilva MD Nucleated RBC 0 /100WBC Normal [facility] Comment on above: Performed By: #### C [id number] #### [facility] [address] [place] [address] Advertising Director: Edison Dasilva MD Platelet 532 x10 High 150-450 [facility] Comment on above: Performed By: #### C [id number] #### [facility] [address] [place] [address] Advertising Director: Edison Dasilva MD Platelet mean volume (Bld) [Entitic vol] 6.5 fL Low 7.4-10.4 [facility] Comment on above: Performed By: #### C [id number] #### [facility] [address] [place] [address] Advertising Director: Edison Dasilva MD RBC 3.39 x10 Low 4.20-5.40 [facility] Comment on above: Result Comment: Note : RBC morphology is normal unless otherwise stated. Evaluation performed only if differential is requested. Performed By: #### C [id number] #### [facility] [address] [place] [phone] Advertising Director: Edison Dasilva MD WBC 11.8 x10 High 4.5-11.0 [facility] Comment on above: Performed By: #### C [id number] #### [facility] [address] [place] [address] Advertising Director: Edison Dasilva MD KETOROLAC 15MG/1ML INJon KETOROLAC 15MG/1ML INJ PRN Response Ente red On: 04/22/2023 14:21 EDT Performed On: 04/22/2023 14:00 EDT by Zoie Solis RN Intervention Information: ketorolac Performed by Zoie Solis RN on 04/22/2023 13:32:00 EDT ketorolac = Toradol,15mg IV Push,Right Antecubit Ray PRN Medication Response PRN Medication used for : Pain PRN Medication Effectiveness : Yes PRN Response Pain Scales : Numeric (8yrs & older) Numeric Pain Scale Age : Numeric (8yrs & older) Actual time of reassessment : Yes Zoie Solis RN - 04/22/2023 14:20 EDT Numeric Pain Scale Numeric Pain Scale : 5 = Moderate pain Numeric Pain Score : 5 Zoie Solis RN - 04/22/2023 14:20 EDT Normal [facility] Comment on above: Order Comment: Verif y NEGATIVE Testdo not exceed 60mg/24hrs for patients over 65, 120mg/24hr for patients 65 or younger; LIPon 04-22-2023 Lipase [Catalytic activity/Vol] 22 U/L Normal 16-77 [facility] Comment on above: Performed By: #### C [id number] #### [facility] [address] [place] [address] Advertising Director: Edison Dasilva MD MorPHINE 2MG/1ML INJon 04-22 MorPHINE 2MG/1ML INJ PRN Response Entere d On: 04/22/2023 16:24 EDT Performed On: 04/22/2023 16:15 EDT by Zoie Solis RN Intervention Information: morphine Performed by Zoie Solis RN on 04/22/2023 15:37:00 EDT morphine,2mg IV Push,Right Antecubit Ray PRN Medication Response PRN Medication used for : Pain PRN Medication Effectiveness : Yes PRN Response Pain Scales : Numeric (8yrs & older) Numeric Pain Scale Age : Numeric (8yrs & older) Actual time of reassessment : Yes Zoie Solis RN - 04/22/2023 16:24 EDT Numeric Pain Scale Numeric Pain Scale : 0 = No Pain/ Other Indications Numeric Pain Score : 0 Zoie Solis RN - 04/22/2023 16:24 EDT Normal [facility] Comment on above: Order Comment: deanna ruffin SOUND ALIKE/LOOK ALIKE-verify med;potential SOUND ALIKE/LOOK ALIKE-verify med; UAon 04-22-2023 Bacteria, U Few Normal [facility] Comment on above: Performed By: #### 1 [id number] #### [facility] [address] [place] [address] Advertising Director: Edison Dasilva MD Mucous, U Occasional Normal [facility] Comment on above: Performed By: #### 1 [id number] #### [facility] [address] [place] [address] Advertising Director: Edison Dasilva MD Non-Squamous Epithelial, U 1 #/HPF Normal [facility] Comment on above: Performed By: #### 1 [id number] #### [facility] [address] [place] [address] Advertising Director: Edison Dasilva MD RBC/HPF, U <1 Normal 0-3 [facility] Comment on above: Performed By: #### 1 [id number] #### [facility] [address] [place] [address] Advertising Director: Edison Dasilva MD Squamous Epithelial Cells, U 2 #/HPF Normal [facility] Comment on above: Performed By: #### 1 [id number] #### [facility] [address] [place] [address] Advertising Director: Edison Dasilva MD U MICRO Indicated Normal [facility] Comment on above: Performed By: #### 1 [id number] #### [facility] [address] [place] [address] Advertising Director: Edison Dasilva MD WBC/HPF, U 4 #/HPF Normal 0-5 [facility] Comment on above: Performed By: #### 1 [id number] #### [facility] [address] [place] [address] Advertising Director: Edison Dasilva MD Appearance, U Sl Hazy Normal [facility] Comment on above: Performed By: #### 1 [id number] #### [facility] [address] [place] [address] Advertising Director: Edison Dasilva MD Bilirubin, U Negative Normal Negative [facility] Comment on above: Performed By: #### 1 [id number] #### [facility] [address] [place] [address] Advertising Director: Edison Dasilva MD Blood, U Negative Normal Negative [facility] Comment on above: Performed By: #### 1 [id number] #### [facility] [address] [place] [address] Advertising Director: Edison Dasilva MD Color, U Yellow Normal [facility] Comment on above: Performed By: #### 1 96705 #### [facility] [address] [place] [address] Advertising Director: Edison Dasilva MD Glucose Qual, U Negative Normal Negative [facility] Comment on above: Performed By: #### 1 [id number] #### [facility] [address] [place] [address] Advertising Director: Edison Dasilva MD Ketones, U Negative Normal Negative [facility] Comment on above: Performed By: #### 1 92756 #### [facility] [address] [place] [address] Advertising Director: Edison Dasilva MD Leukocyte Esterase, U Trace Abnormal Negative [facility] Comment on above: Performed By: #### 1 [id number] #### [facility] [address] [place] [address] Advertising Director: Edison Dasilva MD Nitrite, U Negative Normal Negative [facility] Comment on above: Performed By: #### 1 [id number] #### [facility] [address] [place] [address] Advertising Director: Edison Dasilva MD pH, U 5.5 Normal 4.5-8.0 [facility] Comment on above: Performed By: #### 1 [id number] #### [facility] [address] [place] [address] Advertising Director: Edison Dasilva MD Protein, U Negative Normal Negative [facility] Comment on above: Performed By: #### 1 [id number] #### [facility] [address] [place] [address] Advertising Director: Edison Dasilva MD Specific [place], U S>=1.030 Normal 1.001-1.035 [facility] Comment on above: Performed By: #### 1 [id number] #### [facility] [address] [place] [address] Advertising Director: Edison Dasilva MD Urobilinogen Qual, U 0.2 EU/dl Normal 0.1-1.0 mg/dl [facility] Comment on above: Result Comment: EU/d l and mg/dl are equivalent units. Performed By: #### 1 [id number] #### [facility] [address] [place], [place] [phone] Advertising Director: Edison Dasilva MD 36on 03-24-2023 36 Pt aware of PET results, will follow up with Dr. De La Rosa next week. Pt verbalized understanding, no further questions. Normal [facility] 36 ----- Message from Fernando De La Rosa MD sent at 03/24/2023 1:23 PM EDT ----- Not if it was her regular scheduled surveillance appt. ----- Message ----- From: DAIJA Murray CNP Sent: 03/24/2023 12:46 PM EDT To: Fernando De La Rosa MD, # She sees you next week, OK to cancel your appt? Thanks, Abbi ----- Message ----- From: Fernando De La Rosa MD Sent: 03/24/2023 6:09 AM EDT To: DAIJA Murray CNP, # Plz call with good news, KATHI on PET scan. Follow up q 3 months for 2 years then q 6 months for 3. ----- Message ----- From: Interface, Radiology Results In Sent: 03/21/2023 4:48 PM EDT To: Fernando De La Rosa MD Normal [facility] 36 Pt called and informed she can go back to work per Dr. De La Rosa. Pt will need return to work letter and will call back with fax number. Normal [facility] PET+CT Bone from skull base to mid-thigh W 18F-NaF Jose 03-21-2023 No evidence of residual or recurrent FDG avid malignancy is identified. Report Dictated on Electronically Signed By: Brad Torres Electronically Signed Date/Time: 03/21/2023 12:59 PM EDT [facility] 1990 [id number] Exam Date/Time: 03/21/2023 09:28 Procedure: PET/CT SKULL BASE TO MID THIGH Ordering Provider: DE LA ROSA STEPHEN Reason For Exam: Uterine/cervical cancer, staging PET/CT CLINICAL INDICATION: Cervical cancer restaging, status post radiation therapy and chemotherapy. Following the intravenous administration of 11 mCi of fluorine-18 fluorodeoxyglucose (FDG) a PET scan of the torso was acquired after an approximately one hour delay. Blood glucose level at the time of injection was 112 mg/dl. Contemporaneously, noncontrast axial CT images were obtained using low dose technique. The images were reconstructed in three orthogonal planes and digitally coregistered. The CT data was used for attenuation correction as well. Dose reduction was employed with automated exposure control. COMPARISON: PET/CT performed 12/06/2022 NECK AND CHEST: No abnormal FDG accumulation is seen within the neck or chest to suggest malignant adenopathy or pulmonary nodules. ABDOMEN AND PELVIS: No abnormal FDG accumulation is seen within the abdomen or pelvis. On the noncontrast CT images, punctate nonobstructive bilateral renal calculi are noted. The uterus has been removed. MUSCULOSKELETAL: Unremarkable. No evidence of osseous metastatic disease. [facility] Brad Torres MD - 03/21/2023 Patient Name: COREY PERLA : 1990 [facility]#: [id number] Exam Date/Time: 03/21/2023 09:28 Procedure: PET/CT SKULL BASE TO MID THIGH Ordering Provider: DE LA ROSA STEPHEN Reason For Exam: Uterine/cervical cancer, staging PET/CT CLINICAL INDICATION: Cervical cancer restaging, status post radiation therapy and chemotherapy. Following the intravenous administration of 11 mCi of fluorine-18 fluorodeoxyglucose (FDG) a PET scan of the torso was acquired after an approximately one hour delay. Blood glucose level at the time of injection was 112 mg/dl. Contemporaneously, noncontrast axial CT images were obtained using low dose technique. The images were reconstructed in three orthogonal planes and digitally coregistered. The CT data was used for attenuation correction as well. Dose reduction was employed with automated exposure control. COMPARISON: PET/CT performed 12/06/2022 NECK AND CHEST: No abnormal FDG accumulation is seen within the neck or chest to suggest malignant adenopathy or pulmonary nodules. ABDOMEN AND PELVIS: No abnormal FDG accumulation is seen within the abdomen or pelvis. On the noncontrast CT images, punctate nonobstructive bilateral renal calculi are noted. The uterus has been removed. MUSCULOSKELETAL: Unremarkable. No evidence of osseous metastatic disease. IMPRESSION: No evidence of residual or recurrent FDG avid malignancy is identified. Report Dictated on Electronically Signed By: Brad Torres Electronically Signed Date/Time: 03/21/2023 12:59 PM EDT [facility] Study observation (narrative) [facility] PET+CT Bone from skull base to mid-thigh W 18F-NaF IVOrdered By: Brad Torres on 03-21-2023 [facility] Work Phone: Hospital Encounteron 023 Hospital Encounter [id number] Corey Perla 1990 F Date Provider Department Center 03/19/2023 [id number] [facility] RAD ON None Family History Problem Relation Age of Onset Stroke Mother Multiple sclerosis Mother Diabetes Mother Cervical cancer Mother Breast cancer Mother Breast cancer Maternal Grandmother Breast cancer Paternal Grandmother Colon cancer Neg Hx Ovarian cancer Neg Hx Family Status - Relation Status Age at Mother Alive Maternal Grandmother Paternal Grandmother Neg Hx Level of Service:30853 CO OFFICE/OUTPT VISIT,PROCEDURE ONLY Normal [facility] System [facility] RADCOMPNOTEon 03-19-2023 RADCOMPNOTE RADIATION ONCOLOGY TREATMENT SUMMARY PATIENT: Corey Perla DATE OF SERVICE: 03/19/2023 : 1990 AGE: 32 y.o. 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 -PROLIFERATIVE PHASE ENDOMETRIUM -UNREMARKABLE BILATERAL FALLOPIAN TUBES -UNREMARKABLE PARAMETRIUM -TWO LYMPH PARAMETRIAL NODES NEGATIVE FOR METASTATIC CARCINOMA (0/2) -NEGATIVE RESECTION MARGINS. C. SENTINEL LYMPH NODE, LEFT PELVIC, DISSECTION - -FIVE LYMPH NODES NEGATIVE FOR METASTATIC CARCINOMA (0/5) At radiation oncology consultation she had unrelated to her surgery a right lower quadrant hematoma, tender with abdominal pain, fatigue that she states was prior to her surgery and decreased appetite which we referred her to pain management prior to her radiation therapy and cisplatin. INTERVAL SINCE RADIATION: With Cisplatin completed course # 5 of 5 on 04/02/2023 for 5 weeks with concurrent radiation. Radiation Treatments Active No active radiation treatments to show. Historical Pelvic Bed (Started on 02/03/2023) Most recent fraction: 1.8 Gy given on 03/19/2023 Total given: 50.4 Gy / 50.4 Gy (28 of 28 fractions) Elapsed Days: 44 Technique: VMAT/Daily IGRT STATUS OF PATIENT AT THE FINISH OF THE TREATMENT: Developed urinary tract infection and suffered from abdominal pain. DISPOSITION: Follow-up in 4-5 weeks. Jayy Ocampo MD [facility] Department of Radiation Oncology is an Accredited Facility of the [employer] (ACR). This document was completed utilizing speech recognition software. Grammatical errors, random word insertions, pronoun errors, and incomplete sentences are an occasional consequence of this system due to software limitations, ambient noise, and hardware issues. Any formal questions or concerns about the content, text or information contained within the body of this dictation should be directly addressed to the provider for clarification. [address] 03-18-2023 Approved for PET sca n Ref number [id number] Approved 03/17/2023-06/15/2023 Pt scheduled with [facility] for March 21 @ 700am [address] 03-13-2023 36 Pt informed will repeat PET scan. Pt verbalized understanding. [place] [id number] Called pt with OV with Dr. De La Rosa following completion of cisplatin/radiation. Pt is requesting a follow up scan after completion. [address] 03-12-2023 36 Called my [facility] infusion center and spoke to Amisha regarding adding 20 M EQ of potassium to patient's post hydration after chemotherapy. Verbalizes understanding [address] 03-06-2023 36 Reached out to patient on this date via phone to check-in and offer support. Patient states she is doing okay. Patient states she had a reaction to the treatment again so she is working through that. Patient shares she finished radiation last Friday and she only has one more infusion treatment left. Patient reports no other needs or barriers at this time. She voices understanding to reach out if supportive care needs or questions arise. [facility] CBC W Auto Differential pane l (Bld)Ordered By: Nikole Call on 03-04-2023 Basophils (Bld) [#/Vol] 0.0 10*3/uL 0.0 - 0.2 10*3/uL [facility] Basophils/100 WBC (Bld) 0.6 % 0.0 - 2.0 % [facility] Eosinophils (Bld) [#/Vol] 0.1 10*3/uL 0.0 - 0.5 10*3/uL [facility] Eosinophils/100 WBC (Bld) 1.0 % 1.0 - 6.0 % [facility] Erythrocyte distribution width (RBC) [Ratio] 13.1 % 11.5 - 14.5 % [facility] Hematocrit (Bld) [Volume fraction] 38.7 % 35.0 - 47.0 % [facility] Hemoglobin (Bld) [Mass/Vol] 13.2 g/dL 11.7 - 16.0 g/dL [facility] Immature granulocytes (Bld) [#/Vol] 0.0 10*3/uL NINF - 0.0 10*3/uL [facility] Immature granulocytes/100 WBC (Bld) 0.2 % High NINF - 0.0 % [facility] Interpretation and review of laboratory results Abnormal [facility] Lymphocytes (Bld) [#/Vol] 0.6 10*3/uL Low 1.0 - 4.3 10*3/uL [facility] Lymphocytes/100 WBC (Bld) 12.4 % Low 20.0 - 40.0 % [facility] MCH (RBC) [Entitic mass] 31.4 pg 26.0 - 34.0 pg [facility] MCHC (RBC) [Mass/Vol] 34.1 % 32.0 - 36.0 % [facility] MCV (RBC) [Entitic vol] 92.1 fL 80.0 - 98.0 fL [facility] Monocytes (Bld) [#/Vol] 0.4 10*3/uL 0.0 - 0.8 10*3/uL [facility] Monocytes/100 WBC (Bld) 8.1 % 2.0 - 10.0 % [facility] Neutrophils (Bld) [#/Vol] 4.0 10*3/uL 1.8 - 7.0 10*3/uL [facility] Neutrophils/100 WBC (Bld) 77.7 % 40.0 - 80.0 % [facility] Platelet mean volume (Bld) [Entitic vol] 8.2 fL 7.4 - 12.4 fL [facility] Comment on above: MPV is a calculated measurement using platelet volume ratio Platelets (Bld) [#/Vol] 341 10*3/uL 140 - 440 10*3/uL [facility] RBC (Bld) [#/Vol] 4.20 10*6/uL 3.8 - 5.20 10*6/uL [facility] WBC (Bld) [#/Vol] 5.1 10*3/uL 3.6 - 10.7 10*3/uL [facility] Comprehensive metabolic 1998 panelon 03-04-2023 Albumin [Mass/Vol] 4.7 g/dL 3.5 - 5.0 g/dL [facility] ALP [Catalytic activity/Vol] 121 U/L 38 - 126 U/L [facility] ALT [Catalytic activity/Vol] 13 U/L 0 - 34 U/L [facility] Anion gap [Moles/Vol] 3 mmol/L 3 - 13 mmol/L [facility] AST [Catalytic activity/Vol] 22 U/L 15 - 46 U/L [facility] Bilirubin [Mass/Vol] 0.3 mg/dL 0.2 - 1.3 mg/dL [facility] Calcium [Mass/Vol] 9.7 mg/dL 8.4 - 10. 4 mg/dL [facility] Chloride [Moles/Vol] 105 mmol/L 98 - 107 mmol/L [facility] CO2 [Moles/Vol] 29 mmol/L 22 - 30 mmol/L [facility] Creatinine [Mass/Vol] 0.64 mg/dL 0.52 - 1.04 mg/dL [facility] GFR/1.73 sq M.predicted MDRD (S/P/Bld) [Vol rate/Area] - PINF [facility] Comment on above: Calculation based on the Chronic Kidney Disease Epidemiology Collaboration (CKD-EPI) equation refit without adjustment for race Glucose [Mass/Vol] 101 mg/dL High 70 - 100 mg/dL [facility] Interpretation and review of laboratory results Abnormal [facility] Potassium [Moles/Vol] 3.9 mmol/L 3.5 - 5.1 mmol/L [facility] Protein [Mass/Vol] 8.1 g/dL 6.3 - 8.2 g/dL [facility] Sodium [Moles/Vol] 137 mmol/L 135 - 145 mmol/L [facility] Urea nitrogen [Mass/Vol] 11 mg/dL 7 - 17 mg/dL [facility] Magnesiumon 03-04-2023 Magnesium [Mass/Vol] 1.6 mg/dL 1.6 - 2.3 mg/dL [facility] Magnesium [Mass/Vol]on 03-04 Interpretation and review of laboratory results Normal [facility] No Panel Informationon 03-04 [facility] Progress Noteon 03-04-2023 Progress Note Patient arrived ambulatory for Cycle 4 day 1 Cisplatin. PIV inserted in RFA, blood for CBC,CMP and Mg+ sent to lab. Patient reports feeling much better after week off of treatment, and currently denies any dysuria. CBC reviewed with patient.CMP and Mg+ level obtained. K+ level reviewed. WNL, KCL in pre and post IV hydration d/c'd.Patient continues on NS IVF. Patient tolerated treatment well. Vitals obtained post infusion. PIV d/c'd with angio cath intact. Patient ambulatory to Radiation. [facility] 36on 02-27-2023 36 Called patient with negative urine culture and also called concerning ultrasound of left superficial clot. Has improved and has partial compressibility. Instructed patient to continue heat elevation and ibuprofen. Patient verbalizes understanding and encouraged to call with any worsening symptoms. [facility] 36on 02-26-2023 36 Spoke with pt and sh genaro is feeling better today. Pt states she has the week off from radiation this week. Pt encouraged to call if she has questions or concerns. Will reschedule her Cisplatin that was held yesterday. Normal [facility] C URINEon 02-26-2023 C URINE [facility] Dept of Laboratory Services [address] [place] [id number] Name: COREY PERLA : 1990 Admitting Provider: Gender Female Financial [id number] : Number: Bernabe PANIAGUA; Bed 10; 1 n: Admit 02/24/2023 Date: Discharge 02/24/2023 Microbiology Date: PROCEDURE: C URINE SOURCE: CLEAN CATCH BODY SITE: COLLECTED DATE/TIME: 02/24/2023 18:40 EDT RECEIVED DATE/TIME: 02/25/2023 12:18 EDT START DATE/TIME: 02/25/2023 12:19 EDT FREE TEXT SOURCE: ORDERING PHYSICIAN: CHARLY SARAH DO FINAL REPORTS Final Report [] Verified Date/Time: 02/26/2023 08:53 EDT No significant growth. ____ L=Low, H= High, *= Abnormal, C=Critical, f=Footnote, c=Corrected, i=Interp Data Name: COREY PERLA Print 02/26/2023 08:53 EDT Date/Time: Normal [facility] Comment on above: Performed By: #### 1 [id number] #### [facility] [address] [place] [address] Advertising Director: Edison Dasilva MD Vascular US upper extremity venous duplex lefton 02-26-2023 Superficial thrombophlebitis in the left median antecubital vein. Contralateral imaging of the left subclavian vein was normal. Left Upper Venous For comparison purposes, the left subclavian vein was investigated. This vein appeared to show normal color filling and Doppler interrogation showed phasic, spontaneous and somewhat pulsatile flow. Internal Jugular Vein: Patent, normal phasicity, spontaneous, compressible and fully compressible. Innominate Vein: Patent, spontaneous and fully compressible. Subclavian Vein: Patent, normal phasicity, spontaneous, normal augmentation, compressible and fully compressible. Axillary Vein: Patent, normal phasicity, spontaneous, normal augmentation, compressible and fully compressible. Brachial Vein: Patent, normal phasicity, spontaneous, compressible and fully compressible. Cephalic Vein (Upper Arm): Patent, compressible and fully compressible. Basilic Vein (Upper Arm): Patent, compressible and fully compressible. Median/Antecubital Vein: Superficial thrombophlebitis in the left median antecubital vein. Small amount of thrombus still present in median antecubital vein. Partially compressible Learning Services Coordinator Details A villalba scale, color Doppler imaging and spectral Doppler analysis ultrasound was performed. During the study longitudinal and transverse views were obtained. Pulsed wave doppler was performed. The exam was performed with the patient in the supine position. Overall the study quality was adequate. [facility] 36on 02-25-2023 36 Spoke with pt, she went to ER last night with constant urination. Pt is now on pyridium and bactrim from ER. She feels better since on medications with burning in urethra. Pt states very weak. Made pt an appointment this morning in [place] office with JIGAR Xiong. Held Cisplatin and radiation today per [employer]. Pt is to get hydration today only. Spoke with Lyla at [facility]. Called Maryan at radiation and told her [employer] would update office after appointment. Will check PVR this am. Normal [facility] 36 ----- Message from Fernando De La Rosa MD sent at 02/24/2023 7:41 PM EDT ----- Dr. Ocampo called me again on this patient yesterday after the office was closed. She still complaining a lot of pelvic pressure and only urinating small amounts at a time. Please call her tomorrow morning and get her into the office. Would recommend that you ask her to avoid and then do an in and out cath to check her residual to make sure that she is indeed emptying her bladder and also send the catheter urine off for culture and sensitivity We really need to see her on Friday to be evaluated and see what the issue is. This is a second time his office has called me May just be irritation from the radiation. If she has minimal residual you may want to try Pyridium pending the results of the urinalysis and culture. Normal [facility] Office Visiton 02-25-2023 Follow-up visit [id number] Corey Perla 1990 F Date Provider Department Center 02/25/2023 [id number] XIONG 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 None Family History Problem Relation Age of Onset Stroke Mother Multiple sclerosis Mother Diabetes Mother Cervical cancer Mother Breast cancer Mother Breast cancer Maternal Grandmother Breast cancer Paternal Grandmother Colon cancer Neg Hx Ovarian cancer Neg Hx Family Status - Relation Status Age at Mother Alive Maternal Grandmother Paternal Grandmother Neg Hx Level of Service:69472 CO OFFICE/OUTPATIENT ESTABLISHED MOD MDM 30-39 MIN Reason for Visit and Comments: Follow-up [688934] - Pt has a complaint of pain in Urethra Normal [facility] Progress Noteon 02-25-2023 Progress Note Patient tolerated IV hydration well. Vitals obtained post administration. PIV d/c'd angio cath intact. Patient stable and ambulatory upon discharge. Normal [facility] Progress Note ARRIVAL NOTE INFUSIO N Patient is here for IV hydration Labs were not ordered Normal [facility] Progress Note Pt emptied bladder. PVR is 25 ml. Will send off for culture. Normal [facility] Progress Note CC: here for chemotherapy for Cisplatin for course # 4 of 5. Weekly for 5 weeks with concurrent radiation, 28 XRT Tx's. HPI: Corey Perla is a 32 y.o. with a Status post abdominal radical hysterectomy bilateral salpingectomy and bilateral for proxy for a stage I B1 endocervical carcinoma on 12/17/2022 Cancer here for Chemotherapy. Final Pathology shows: A. SENTINEL LYMPH NODE, RIGHT PELVIC, DISSECTION - -THREE LYMPH NODES NEGATIVE FOR METASTATIC CARCINOMA (0/3) B. 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 -PROLIFERATIVE PHASE ENDOMETRIUM -UNREMARKABLE BILATERAL FALLOPIAN TUBES -UNREMARKABLE PARAMETRIUM -TWO LYMPH PARAMETRIAL NODES NEGATIVE FOR METASTATIC CARCINOMA (0/2) -NEGATIVE RESECTION MARGINS. C. SENTINEL LYMPH NODE, LEFT PELVIC, DISSECTION - -FIVE LYMPH NODES NEGATIVE FOR METASTATIC CARCINOMA (0/5) at 1417 Comment The tumor was not grossly identified or able to be measured grossly, however was submitted microscopically and found to have significant involvement of 12 tissue blocks. The blocks measure 0.4 cm in thickness. The tumor size is estimated at 4.8 cm based on that information. The radiology report demonstrates a 4.0 cm measurement. Staging is at least pT1b2 based on on the radiographic measurement, but may be slightly larger and fall into the category of pT1b3 using the estimated measurement of 4.8 cm. Please correlate with clinical and operative findings. Synoptic Checklist UTERINE CERVIX: Resection 9th Edition - Protocol posted: 05/25/2021 UTERINE CERVIX: TRACHELECTOMY, HYSTERECTOMY, PELVIC EXENTERA - All Specimens SPECIMEN Procedure Radical hysterectomy Bilateral salpingectomy Hysterectomy Type Abdominal TUMOR Tumor Site Circumfrential Tumor Size Greatest Dimension (Centimeters): 4.8 (estimated, see comment) cm Additional Dimension (Centimeters) 1.6 cm 1.1 cm Histologic Type Adenocarcinoma, NOS Histologic Type Comment P16 is pending for evalaution of HPV association. Histologic Grade G1, well differentiated Depth of Stromal Invasion 11 mm Extent of Depth of Stromal Invasion Deep one-third Horizontal Extent of Stromal Invasion 18 mm Duarte System for Invasion Not applicable Other Tissue / Organ Involvement Not identified Lymphovascular Invasion Present MARGINS Margin Status for Invasive Carcinoma All margins negative for invasive carcinoma Closest Margin(s) to Invasive Carcinoma Radial / circumferential: 6-9 oclock area Distance from Invasive Carcinoma to Closest Margin 5 mm Margin Status for HSIL or AIS All margins negative for high-grade squamous intraepithelial lesion (HSIL) and / or adenocarcinoma in situ (AIS) REGIONAL LYMPH NODES Regional Lymph Node Status All regional lymph nodes negative for tumor cells Lymph Nodes Examined Total Number of Pelvic Nodes Examined 10 Number of Pelvic Rudolph Nodes Examined 8 Total Number of Para-aortic Nodes Examined 0 PATHOLOGIC STAGE CLASSIFICATION (pTNM, AJCC 9th Version) Reporting of pT, pN, and (when applicable) pM categories is based on information available to the pathologist at the time the report is issued. As per the AJCC (Chapter 1, 8th Ed.) it is the managing physician?s responsibility to establish the final pathologic stage based upon all pertinent information, including but potentially not limited to this pathology report. pT Category pT1b3 Patient did undergo a CT scan which does show a right flank hematoma thought to be secondary to the tap block. This is away from the incision. Interval History: She does not have: She is tolerating chemotherapy well. She does not have: Fatigue, Weakness, Fever, Chills, Sweats, Anorexia, Weight Loss, Mouth Sores, Nausea, Vomiting, Diarrhea, Constipation, Dizziness, Pain, Arthralgias, Myalgias, AGUERO, Edema, SOB, Anxiety, Depression. Denies Abdominal pain, Abdominal distention, Vaginal bleeding or discharge. No PPE, Peripheral Neuropathy. Has nausea after first few days after chemo. Takes Compazine and that helps Had diarrhea for the first few weeks after radiation. Pain with BM. Diarrhea has subsided. Had a fever over the weekend, 100.6. has subsided. Feeling better. Taking ibuprofen. Mild cough. Patient is drinking ensure. Loosing weight since being on chemo. Sees our dietitian and follows her recipes. Doing ok emotionally. Has good family support. Mom just went through breast surgery. Offered referral to Dr. Mujica patient is not interested at this time, but will let me know if she changes her mind. Has tinnitus that started approximately one week ago. Happens a couple of times a day. Having metallic taste changes suggested hard candy. Instructed patient to use plastic forks. After chemotherapy last week patient had complaints of left arm ten (more content not included)... [facility] 36on 02-24-2023 36 The patient was at the [facility] for her daily radiation treatment. The RN saw the patient after her radiation for her on treatment visit. The patient informed the RN that she is experiencing an increase in pelvic pain (8/10) and pelvic pressure. The patient states, I am staying well hydrated but I can only urinate a few drops at a time. The patient informed the RN that she did not start her antibiotic as prescribed because she was informed that her urine culture was negative. The RN notified Dr. Ocampo of the patient's current condition and the information as detailed above. Dr. Ocampo informed the RN to contact the office of STEPHANY Ferreira to notify the team of the patient's condition. The RN called the office and was forwarded to the answering service. The RN left a message with the answering service to speak with the senior front end developer physician regarding the patient current condition. Dr. De La Rosa returned the call and the RN informed him of the patients condition as detailed above. Dr. De La Rosa informed the RN to notify the patient to go to the ED if she is unable to tolerate her symptoms or if they become worse. Dr. De La Rosa also informed the RN that he will arrange for his office to set up an in office visit for tomorrow to assess the patient. The RN called the patient to inform her of the discussion that was had with Dr. De La Rosa. The patient informed the RN that her pelvic pain, pelvic pressure, and urge to urinate without being able to urinate has increase since leaving the radiation department. The patient verbalized understanding of the recommendations by Dr. De La Rosa and informed the RN that she is going to go to the ED. Dr. Ocampo was informed that the patients pelvic pain, pelvic pressure, and urge to urinate without being able to urinate has increase since leaving the radiation department. The patient has decided that she is going to the ED department. No additional orders were obtained from Dr. Ocampo at the current time. Normal [facility] 36 Name of caller requesting page:Juan Phone Number of caller: [phone] Facility requesting page: On-Call Finder Reason for Page: Update on patient Provider paged: Dr De La Rosa Practice Name of paged provider: Violet Page Placed to #: On-Call Finder Time Page was sent or provider contacted: 4:39pm Page Content: Please call [facility] ([phone]). Pt has increased pelvic pain/pressure. small amount urination. Normal [facility] ED Adult Data - Texton 02-24 ED Adult Data - Text ED Adult Data Enter ed On: 02/24/2023 17:59 EDT Performed On: 02/24/2023 17:27 EDT by Karina Encinas RN Arrival Information Information Given by : Patient Referral Source ED : Home [place] Mode of Arrival : Car / Walk-In Airway : Normal Breathing : Normal Circulation : Normal Karina Encinas RN - 02/24/2023 17:56 EDT Screening-General Meds Triage : NA Accept Blood Products if Necessary : Yes Immunizations Current : Yes Last Tetanus : Less than 5 years Preferred Verbal : Kosovan Karina Encinas RN - 02/24/2023 17:56 EDT Depression Screening Patient able to verbalize? : Yes Feeling Down, Depressed, Hopeless : Not at all Little Interest - Pleasure in Activities : Not at all Initial Depression Screen Score : 0 Depression Screening Score 0 : No IP Pt being evaluated or treated for BH conditions : No Karina Encinas RN - 02/24/2023 17:56 EDT Screening-Safety Abuse/Violence Concerns? : Patient denies Does the patient have a medically restricted extremity? : No Karina Encinas RN - 02/24/2023 17:56 EDT Problem List Problem List obtained from : Patient Aljabi RN, Karina - 02/24/2023 17:56 EDT (As Of: 02/24/2023 17:59:50 EDT) Problems(Active) Adenocarcinoma of cervix (SNOMED CT :336812821 ) Name of Problem: Adenocarcinoma of cervix ; Recorder: IDALMIS JIMENEZ; Confirmation: Confirmed ; Classification: Medical ; Code: [id number] ; Contributor System: PowerChart ; Last Updated: 11/28/2022 11:14 EST ; Life Cycle Date: 11/28/2022 ; Life Cycle Status: Active ; Responsible Provider: IDALMIS JIMENEZ; Vocabulary: SNOMED CT Cervical mass (SNOMED CT :920151902 ) Name of Problem: Cervical mass ; Recorder: IDALMIS JIMENEZ; Confirmation: Confirmed ; Classification: Medical ; Code: [id number] ; Contributor System: SpontoChart ; Last Updated: 10/09/2022 14:49 EST ; Life Cycle Date: 10/09/2022 ; Life Cycle Status: Active ; Responsible Provider: IDALMIS JIMENEZ; Vocabulary: SNOMED CT High risk HPV infection (SNOMED CT :441334947 ) 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 ; Recorder: IDALMIS JIMENEZ; Confirmation: Confirmed ; Classification: Medical ; Code: [id number] ; Contributor System: SpontoChart ; Last Updated: 10/09/2022 14:49 EST ; Life Cycle Date: 10/09/2022 ; Life Cycle Status: Active ; Responsible Provider: IDALMIS JIMENEZ; Vocabulary: SNOMED CT HPV in female (SNOMED CT :366088854 ) 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 ; Recorder: Karina Encinas RN; Confirmation: Confirmed ; Classification: Medical ; Code: [id number] ; Contributor System: PowerChart ; Last Updated: 2022 07:37 EST ; Life Cycle Date: 2022 ; Life Cycle Status: Active ; Vocabulary: SNOMED CT Procedure History ED Devices Present on Arrival To ED : None Urinary Catheter Present on Admit to ED : No Karina Encinas RN - 02/24/2023 17:56 EDT - Procedure History (As Of: 02/24/2023 17:59:50 EDT) Procedure Dt/Tm: 2003 ; Anesthesia Minutes: 0 ; Procedure Name: Gardasil vaccine series completed ; Procedure Minutes: 0 ; Last Reviewed Dt/Tm: 02/24/2023 17:59:38 EDT Procedure Dt/Tm: 11/15/2022 ; Provider: IDALMIS JIMENEZ; Anesthesia Minutes: 0 ; Procedure Name: HYSTEROSCOPY D&C ; Procedure Minutes: 0 ; Last Reviewed Dt/Tm: 02/24/2023 17:59:38 EDT Anesthesia Minutes: 0 ; Procedure Name: [place] teeth extraction ; Procedure Minutes: 0 ; Last Reviewed Dt/Tm: 02/24/2023 17:59:38 EDT Social History Does pt have any alcohol,drugs or tobacco : No Do you consume Alcohol : No Social History obtained from : Patient Karina Encinas RN - 02/24/2023 17:56 EDT Social History (As Of: 02/24/2023 17:59:50 EDT) Alcohol: Denies Alcohol Use (Last Updated: 10/09/2022 09:17:27 EST by Anne Marie Linn MA ) Tobacco: 10 or more cigarettes (1/2 pack or more)/day in last 30 days Tobacco Use:. (Last Updated: 11/22/2021 13:34:49 EST by Glory Dumont MA) Substance Abuse: Denies Substance Abuse (Last Updated: 10/31/2022 11:04:54 EST by Sanchez Henderson RN ) Sexual: Other contraceptive use: none. (Last Updated: 10/09/2022 09:17:36 EST by Anne Marie Linn MA) Infection Screening Last Physical Overnight Location of the Patient : Personal Residence Travel outside US within past 30 days : No Exposure AND/OR close contact with a person under investigation or laboratory-confirmed COVID-19 individual within 14 days of symptom onset AND/OR any of the following: : No Do you live/work in a high risk situation (congregated living, hemodialysis, infusion clinic, jail, assisted living, retirement, homeless intermediate, etc.)? : No Karina Encinas RN - 02/24/2023 17:56 EDT Normal [facility] ED Discharge Educationon ED Discharge Education Urology Urinary Tract Infection (UTI) in Women: Care Instructions Overview A urinary tract infection, or UTI, is a general term for an infection anywhere between the kidneys and the urethra (where urine comes out). Most UTIs are bladder infections. They often cause pain or burning when you urinate. UTIs are caused by bacteria and can be cured with antibiotics. Be sure to complete your treatment so that the infection does not get worse. Follow-up care is a jimenez part of your treatment and safety. Be sure to make and go to all appointments, and call your doctor if you are having problems. It's also a good idea to know your test results and keep a list of the medicines you take. How can you care for yourself at home? ? Take your antibiotics as directed. Do not stop taking them just because you feel better. You need to take the full course of antibiotics. ? Drink extra water and other fluids for the next day or two. This will help make the urine less concentrated and help wash out the bacteria that are causing the infection. (If you have kidney, heart, or liver disease and have to limit fluids, talk with your doctor before you increase the amount of fluids you drink.) ? Avoid drinks that are carbonated or have caffeine. They can irritate the bladder. ? Urinate often. Try to empty your bladder each time. ? To relieve pain, take a hot bath or lay a heating pad set on low over your lower belly or genital area. Never go to sleep with a heating pad in place. To prevent UTIs ? Drink plenty of water each day. This helps you urinate often, which clears bacteria from your system. (If you have kidney, heart, or liver disease and have to limit fluids, talk with your doctor before you increase the amount of fluids you drink.) ? Urinate when you need to. ? If you are sexually active, urinate right after you have sex. ? Change sanitary pads often. ? Avoid douches, bubble baths, feminine hygiene sprays, and other feminine hygiene products that have deodorants. ? After going to the bathroom, wipe from front to back. When should you call for help? Call your doctor now or seek immediate medical care if: ? Symptoms such as fever, chills, nausea, or vomiting get worse or appear for the first time. ? You have new pain in your back just below your rib cage. This is called flank pain. ? There is new blood or pus in your urine. ? You have any problems with your antibiotic medicine. Watch closely for changes in your health, and be sure to contact your doctor if: ? You are not getting better after taking an antibiotic for 2 days. ? Your symptoms go away but then come back. Where can you learn more? Go to https://www.[employer]/patientEd Enter K848 in the search box to learn more about Urinary Tract Infection (UTI) in Women: Care Instructions. Current as of: August 27, 2021 Content Version: 13.3 ? [employer]. Care instructions adapted under license by your healthcare professional. If you have questions about a medical condition or this instruction, always ask your healthcare professional. [employer] disclaims any warranty or liability for your use of this information. You Painful Urination (Dysuria): Care Instructions Your Care Instructions Burning pain with urination (dysuria) is a common symptom of a urinary tract infection or other urinary problems. The bladder may become inflamed. This can cause pain when the bladder fills and empties. You may also feel pain if the tube that carries urine from the bladder to the outside of the body (urethra) gets irritated or infected. Sexually transmitted infections (STIs) also may cause pain when you urinate. Sometimes the pain can be caused by things other than an infection. The urethra can be irritated by soaps, perfumes, or foreign objects in the urethra. Kidney stones can cause pain when they pass through the urethra. The cause may be hard to find. You may need tests. Treatment for painful urination depends on the cause. Follow-up care is a jimenez part of your treatment and safety. Be sure to make and go to all appointments, and call your doctor if you are having problems. It's also a good idea to know your test results and keep a list of the medicines you take. How can you care for yourself at home? ? Drink extra water for the next day or two. This will help make the urine less concentrated. (If you have kidney, heart, or liver disease and have to limit fluids, talk with your doctor before you increase the amount of fluids you drink.) ? Avoid drinks that are carbonated or have caffeine. They can irritate the bladder. ? Urinate often. Try to empty your bladder each time. For women: ? Urinate right after you have sex. ? After going to the bathroom, wipe from front to back. ? Avoid douches, bubble baths, and feminine hygiene sprays. And avoid other feminine hygiene products that have deodorants. When should you call for help? (Inserted Image. Unable to displa (more content not included)... Normal [facility] ED Emergency Severity Index Adult-Texton 02-24-2023 ED Emergency Severity Index Adult-Text ANDREA - Adult Entered On: 02/24/2023 17:54 EDT Performed On: 02/24/2023 17:27 EDT by Karina Encinas RN ANDREA DCP GENERIC CODE Visit Reason : PAIN WITH URINATION, URETHRAL PAIN, CHEMO PT, RADICAL HYSTERECTOMY ON 12/17 Tracking Triage Date/Time : 02/24/2023 17:54 EDT Tracking Reg Status : Complete Tracking Acuity : 3-Urgent Tracking Group : Karina Liu RN - 02/24/2023 17:54 EDT Normal [facility] ED Nrsing Adlt Triage Sep Sc rning - Texton 02-24-2023 ED Nrsing Adlt Triage Sep Scrning - Text ED Nursing Adult Triage Sepsis Screening Tool Entered On: 02/24/2023 17:55 EDT Performed On: 02/24/2023 17:27 EDT by Karina Encinas RN Adult Sepsis Screening Sepsis Infection Screening ED : Yes Sepsis Vitals Screening ED : None/ NA(Peds) Karina Encinas RN - 02/24/2023 17:55 EDT Normal [facility] ED Patient Summaryon 023 ED Patient Summary [facility] Discharge Instructions [address] [place] [address] (Patient Copy) Name: COREY PERLA : 1990 Allergies: No Known Allergies Diagnosis: Acute lower urinary tract infection Visit Date: 02/24/2023 17:19:46 Current Date Time: 02/24/2023 18:56:13 Address: [address] [place] [address] Phone: [phone] Primary Care Provider: Name: NO FAMILY PHYSICIAN, 837 Phone: Emergency Department Care Providers: Primary Physician: CHARLY SARAH DO Thank you for choosing [facility] for your emergency care. You are very important to us. Our goal is to demonstrate our high quality medical care, and provide you with a very good patient experience. You may receive a survey about our service. Please take the time to complete the survey and return it so we can continue to enhance our service. Thank you again for allowing the [facility] Emergency Department to care for your medical needs. If you have questions about your care or follow up information please contact us at [phone]. Follow-Up Instructions COREY PERLA has been given these follow-up instructions: With: Address: When: Please follow-up with your food and drug research scientist Within 3 to 5 days Patient Education Materials COREY PERLA has been given the following patient education materials: Urinary Tract Infection (UTI) in Women: Care Instructions Overview A urinary tract infection, or UTI, is a general term for an infection anywhere between the kidneys and the urethra (where urine comes out). Most UTIs are bladder infections. They often cause pain or burning when you urinate. UTIs are caused by bacteria and can be cured with antibiotics. Be sure to complete your treatment so that the infection does not get worse. Follow-up care is a jimenez part of your treatment and safety. Be sure to make and go to all appointments, and call your doctor if you are having problems. It's also a good idea to know your test results and keep a list of the medicines you take. How can you care for yourself at home? ? Take your antibiotics as directed. Do not stop taking them just because you feel better. You need to take the full course of antibiotics. ? Drink extra water and other fluids for the next day or two. This will help make the urine less concentrated and help wash out the bacteria that are causing the infection. (If you have kidney, heart, or liver disease and have to limit fluids, talk with your doctor before you increase the amount of fluids you drink.) ? Avoid drinks that are carbonated or have caffeine. They can irritate the bladder. ? Urinate often. Try to empty your bladder each time. ? To relieve pain, take a hot bath or lay a heating pad set on low over your lower belly or genital area. Never go to sleep with a heating pad in place. To prevent UTIs ? Drink plenty of water each day. This helps you urinate often, which clears bacteria from your system. (If you have kidney, heart, or liver disease and have to limit fluids, talk with your doctor before you increase the amount of fluids you drink.) ? Urinate when you need to. ? If you are sexually active, urinate right after you have sex. ? Change sanitary pads often. ? Avoid douches, bubble baths, feminine hygiene sprays, and other feminine hygiene products that have deodorants. ? After going to the bathroom, wipe from front to back. When should you call for help? Call your doctor now or seek immediate medical care if: ? Symptoms such as fever, chills, nausea, or vomiting get worse or appear for the first time. ? You have new pain in your back just below your rib cage. This is called flank pain. ? There is new blood or pus in your urine. ? You have any problems with your antibiotic medicine. Watch closely for changes in your health, and be sure to contact your doctor if: ? You are not getting better after taking an antibiotic for 2 days. ? Your symptoms go away but then come back. Where can you learn more? Go to https://www.[employer]/patientEd Enter K848 in the search box to learn more about Urinary Tract Infection (UTI) in Women: Care Instructions. Current as of: August 27, 2021 Content Version: 13.3 ? [employer]. Care instructions adapted under license by your healthcare professional. If you have questions about a medical condition or this instruction, always ask your healthcare professional. [employer] disclaims any warranty or liability for your use of this information. You Painful Urination (Dysuria): Care Instructions Your Care Instructions Burning pain with urination (dysuria) is a common symptom of a urinary tract infection or other urinary problems. The bladder may bec (more content not included)... Normal [facility] ED Physician Reporton 2022 ED Physician Report Patient: LIVAN PERLA Age: 32 years Sex: Female : 1990 Associated Diagnoses: Acute lower urinary tract infection Author: CHARLY SARAH DO Basic Information Time seen: Date & time 02/24/2023 17:30:00. History source: Patient. Arrival mode: Private vehicle. History limitation: None. History of Present Illness The patient presents with dysuria. The character of symptoms is burning. The degree at present is minimal. Associated symptoms: denies fever and denies chills. 32-year-old female with history of endocervical adenocarcinoma. Recently had radical hysterectomy in December of this year. She comes in complaining of dysuria x1 day. States it hurts when she urinates, and has hesitancy with urination. No fevers or chills. No nausea or vomiting.. Health Status Allergies: Allergic Reactions (Selected) No Known Allergies. Medications: (Selected) Inpatient Medications Ordered Pyridium: 200 mg = 2 tabs, ORAL, ONCE sulfamethoxazole-trim ethoprim 800 mg-160 mg oral tablet = Bactrim DS, Septra DS: 1 tabs, ORAL, ONCE Documented Medications Documented Nature's Bounty Hair Skin and Nails: 1 tabs, ORAL, DAILY, 0 Refill(s). Past Medical/ Family/ Social History Medical history: No active or resolved past medical history items have been selected or recorded.. Surgical history: HYSTEROSCOPY D&C on 11/15/2022 at 32 Years. Gardasil vaccine series completed in 2003 at 14 Years. [place] teeth extraction.. Family history: Diabetes.. Mother (Dx:35) Breast cancer.. Grandmother (Paternal, ) Cervical cancer.. Mother (Dx:35) . Social history: Alcohol use: Denies, Tobacco use: Denies, Drug use: Denies. Physical Examination Vital Signs Vital Signs 02/24/2023 17:27 EDT Temperature Oral 36.9 degC NORMAL Peripheral Pulse Rate 90 bpm NORMAL Respiratory Rate 20 br/min NORMAL Systolic Blood Pressure 139 mmHg NORMAL Diastolic Blood Pressure 76 mmHg NORMAL SpO2 98 % NORMAL Oxygen Therapy Room air Weight Measured Type of Scale Standing Scale Height/Length Dosing 162 cm Weight Dosing 53.5 kg Body Mass Index Dosing 20 . General: Alert. Skin: Warm, dry. Head: Normocephalic, atraumatic. Eye: Normal conjunctiva, vision unchanged. Ears, nose, mouth and throat: Oral mucosa moist, no pharyngeal erythema or exudate. Cardiovascular Respiratory Gastrointestinal: Soft, Nontender, Non distended, Normal bowel sounds. Genitourinary: Mild suprapubic pain with urinating. Musculoskeletal: Normal ROM, no tenderness. Psychiatric: Cooperative, appropriate mood & affect. Neurological No focal neurological deficit observed, normal speech observed. Medical Decision Making Differential Diagnosis: Differential Diagnosis: Urinary tract infection, cystitis. Documents reviewed: Emergency department nurses' notes, emergency department records, prior records. Results review: Lab results : Laboratory 02/24/2023 18:15 EDT Color, U Yellow Appearance, U Clear Specific [place], U 1.025 pH, U 6.5 Protein, U 100 mg/dl Glucose Qual, U Negative Ketones, U Negative Bilirubin, U Negative Blood, U Negative Urobilinogen Qual, U 0.2 EU/dl Nitrite, U Negative Leukocyte Esterase, U Small RBC/HPF, U <1 #/HPF NORMAL WBC/HPF, U >30 #/HPF HI U WBC CLUMPS Present Squamous Epithelial Cells, U 2 #/HPF NA Non-Squamous Epithelial, U <1 #/HPF NA Mucous, U Few . Impression and Plan Diagnosis Acute lower urinary tract infection ([id number] N39.0, Working, Medical) Plan Condition: Stable. Disposition: ED Discharge to Home was placed.(02/24/2023 18:41:00 EDT, Constant Order), Discharged: Time 02/24/2023 18:41:00, to home. Prescriptions: Launch prescriptions Pharmacy: Pyridium 200 mg oral tablet (Prescribe): 200 mg = 1 tabs, ORAL, TID, for 3 days, 9 tabs, 0 Refill(s) SMZ-TMP DS 800 mg-160 mg oral tablet (Prescribe): 1 tabs, ORAL, [id number], for 7 days, 14 tabs, 0 Refill(s). Patient was given the following educational materials: Dysuria, UTI (Urinary Tract Infection): Female, UTI (Urinary Tract Infection): Female, Dysuria. Follow up with: ; Please follow-up with your food and drug research scientist Within 3 to 5 days. Counseled: Patient, Regarding diagnosis, Regarding diagnostic results, Regarding treatment plan, Regarding prescription, Patient indicated understanding of instructions. Normal [facility] ED Progress Noteon 3 ED Progress Note 1727 brought in through triage with complaints of dysuria and hesitancy of urine. denies fever and chills. warm, pink, dry. resp even and unlabored. 1853 patient medicated. prescriptions given to patient. patient verbalized discharge instructions. warm, pink, dry. Normal [facility] ED Triage Adult-Texton 02-24 ED Triage Adult-Text ED Triage Entered O n: 02/24/2023 17:56 EDT Performed On: 02/24/2023 17:27 EDT by Karina Encinas RN Triage (As Of: 02/24/2023 17:56:48 EDT) Problems(Active) Adenocarcinoma of cervix (SNOMED CT :331320421 ) Name of Problem: Adenocarcinoma of cervix ; Recorder: IDALMIS JIMENEZ; Confirmation: Confirmed ; Classification: Medical ; Code: [id number] ; Contributor System: PowerChart ; Last Updated: 11/28/2022 11:14 EST ; Life Cycle Date: 11/28/2022 ; Life Cycle Status: Active ; Responsible Provider: IDALMIS JIMENEZ; Vocabulary: SNOMED CT Cervical mass (SNOMED CT :648991184 ) Name of Problem: Cervical mass ; Recorder: IDALMIS JIMENEZ; Confirmation: Confirmed ; Classification: Medical ; Code: [id number] ; Contributor System: PowerChart ; Last Updated: 10/09/2022 14:49 EST ; Life Cycle Date: 10/09/2022 ; Life Cycle Status: Active ; Responsible Provider: IDALMIS JIMENEZ; Vocabulary: SNOMED CT High risk HPV infection (SNOMED CT :904811675 ) 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 ; Recorder: IDALMIS JIMENEZ; Confirmation: Confirmed ; Classification: Medical ; Code: [id number] ; Contributor System: [employer] ; Last Updated: 10/09/2022 14:49 EST ; Life Cycle Date: 10/09/2022 ; Life Cycle Status: Active ; Responsible Provider: IDALMIS JIMENEZ; Vocabulary: SNOMED CT HPV in female (SNOMED CT :235813942 ) 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 ; Recorder: Karina Encinas RN; Confirmation: Confirmed ; Classification: Medical ; Code: [id number] ; Contributor System: [employer] ; Last Updated: 2022 07:37 EST ; Life Cycle Date: 2022 ; Life Cycle Status: Active ; Vocabulary: SNOMED CT (As Of: 02/24/2023 17:56:48 EDT) Allergies (Active) No Known Allergies Estimated Onset Date: Unspecified ; Created By: Munir Oglesby RN; Reaction Status: Active ; Category: Drug ; Substance: No Known Allergies ; Type: Allergy ; Updated By: Munir Oglesby RN; Reviewed Date: 02/24/2023 17:55 EDT Vitals/Ht/Wt Temperature Oral : 36.9 degC Pulse Rate : 90 bpm Respiratory Rate : 20 br/min Systolic Blood Pressure : 139 mmHg Diastolic Blood Pressure : 76 mmHg SpO2 : 98 % Oxygen Therapy : Room air Pain Symptoms : Yes Height/Length Dosing : 162 cm(Converted to: 5.31 ft, 63.78 in) Weight Measured Type of Scale : Standing Scale Weight Dosing : 53.5 kg(Converted to: 1,887.157 oz, 117.947 lb) Body Mass Index Dosing : 20 Karina Encinas RN - 02/24/2023 17:55 EDT Normal [facility] Hospital Encounteron 023 Hospital Encounter [id number] Ratliff 1990 F Date Provider Department Center 02/24/2023 [id number] [facility] RAD ON None Family History Problem Relation Age of Onset Stroke Mother Multiple sclerosis Mother Diabetes Mother Cervical cancer Mother Breast cancer Mother Breast cancer Maternal Grandmother Breast cancer Paternal Grandmother Colon cancer Neg Hx Ovarian cancer Neg Hx Family Status - Relation Status Age at Mother Alive Maternal Grandmother Paternal Grandmother Neg Hx Normal [facility] Progress Noteon 02-24-2023 Progress Note RADIATION ONCOLOGY FOLLOW UP PATIENT: Corey Perla DATE OF SERVICE: 02/24/2023 : 1990 AGE: 32 y.o. PRIMARY SITE AND HISTOPATHOLOGY: Cervical cancer Problem List Items Addressed This Visit None HISTORY OF PRESENT ILLNESS: PRIMARY SITE: pT1b3, G1 adenocarcinoma of the cervix. STAGE: IB2 T1b2 N0 M0?Clone Stage? TREATMENT DATES: 02/03/2023 - 02/24/2023 (21 days); On weekly cisplatin in [place]. SYSTEMS Weight w/Previous: Weight 117.1 pounds 02/24/23 (Change since 02/17/23: -2.7 pounds) Pain: 8. - Very severe pain Lower GI and Pelvis - Acute: 0 - No change Upper GI - Acute: 2 - Anorexia with <15% wt loss, nausea and/or vomiting, antiemetics Genitourinary - Acute: 2 - Freq of urination or nocturia. Dysuria, urgency with meds. Fatigue: 2 - Must curtail daily activities even with rest periods and earlier bedtime SEED CUTTER - Acute: None Anorexia: 2 - Loss of appetite but able to eat smaller portions of food and/or liquids Larynx - Acute: None Mucous Membrane - Acute: None Pharynx & Esophagus - Acute: None Lung - Acute: None Skin - Acute: 0 - No pattern changer and repairer baseline Other: The patient is using coconut oil MEDICATIONS: Reviewed in [facility]. HPI: As documented above with no additional complaints. TREATMENT TOLERANCE: Fair CURRENT CLINICAL HISTORY : Has had progressive decrease in urinary flow over the last 5 days. Obtain urinarlysis last weekl with no growth. Given a prescription for Keflex but she did not take once the UA that was not clean. The patient was at the [place] facility for her daily radiation treatment. The RN saw the patient after her radiation for her on treatment visit. The patient informed the RN that she is experiencing an increase in pelvic pain (8/10) and pelvic pressure. The patient states, I am staying well hydrated but I can only urinate a few drops at a time. The patient informed the RN that she did not start her antibiotic as prescribed because she was informed that her urine culture was negative. The RN notified Dr. Ocampo of the patient's current condition and the information as detailed above. Dr. Ocampo informed the RN to contact the office of STEPHANY Ferreira to notify the team of the patient's condition. The RN called the office and was forwarded to the answering service. The RN left a message with the answering service to speak with the senior front end developer physician regarding the patient current condition. Dr. De La Rosa returned the call and the RN informed him of the patients condition as detailed above. Dr. De La Rosa informed the RN to notify the patient to go to the ED if she is unable to tolerate her symptoms or if they become worse. Dr. De La Rosa also informed the RN that he will arrange for his office to set up an in office visit for tomorrow to assess the patient. INTERVAL SINCE RADIATION: Current dose with weekly cisplatin. Radiation Treatments Active Pelvic Bed (Started on 02/03/2023) Most recent fraction: 1.8 Gy given on 02/21/2023 Total given: 25.2 Gy / 50.4 Gy (14 of 28 fractions) Elapsed Days: 18 Technique: VMAT/Daily IGRT Historical No historical radiation treatments to show. 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 56 tablet 0 cephalexin (Keflex) 500 MG capsule Take 1 capsule (500 mg) by mouth 3 times daily for 7 days. 21 capsule 0 ondansetron (Zofran) 8 MG tablet Take 1 tablet (8 mg) by mouth every 8 hours as needed for nausea or vomiting (Take 1 tablet 1 hour prior to radiation and 1 tablet 6 hours after radiation). 60 tablet 1 potassium chloride CR (Klor-Con M10) 10 MEQ ER tablet Take 2 tablets (20 mEq) by mouth daily. Do not crush or chew. 60 tablet 11 prochlorperazine (Compazine) 10 MG tablet Take 1 tablet (10 mg) by mouth every 6 hours as needed for nausea or vomiting. 30 tablet 2 prochlorperazine (Compazine) 10 MG tablet Take 1 tablet (10 mg) by mouth every 6 hours as needed for nausea or vomiting. 30 tablet 2 No current facility-administered medications for this encounter. ECOG Performance Status: 0 IMPRESSION: Corey Perla is a 32 y.o. who presents with decreased urinary output. PLAN: The RN called the patient to inform her of the discussion that was had with Dr. De La Rosa. The patient informed the RN that her pelvic pain, pelvic pressure, and urge to urinate without being able to urinate has increase since leaving t (more content not included)... Normal [facility] 02-24-2023 Appearance, U Clear Normal [facility] Comment on above: Performed By: #### 1 [id number] #### [facility] [address] [place] [address] [id number] Advertising Director: Edison Dasilva MD Bilirubin, U Negative Normal Negative [facility] Comment on above: Performed By: #### 1 [id number] #### [facility] [address] [place] [address] [id number] Advertising Director: Edison Dasilva MD Blood, U Negative Normal Negative [facility] Comment on above: Performed By: #### 1 [id number] #### [facility] [address] [place] [address] 38695 Advertising Director: Edison Dasilva MD Color, U Yellow Normal [facility] Comment on above: Performed By: #### 1 [id number] #### [facility] [address] [place] [address] 88828 Advertising Director: Edison Dasilva MD Glucose Qual, U Negative Normal Negative [facility] Comment on above: Performed By: #### 1 [id number] #### [facility] [address] [place] [address] 77243 Advertising Director: Edison Dasilva MD Ketones, U Negative Normal Negative [facility] Comment on above: Performed By: #### 1 [id number] #### [facility] [address] [place] [address] 84351 Advertising Director: Edison Dasilva MD Leukocyte Esterase, U Small Abnormal Negative [facility] Comment on above: Performed By: #### 1 [id number] #### [facility] [address] [place] [address] 40625 Advertising Director: Edison Dasilva MD Mucous, U Few Normal [facility] Comment on above: Performed By: #### 1 [id number] #### [facility] [address] [place] [address] 89909 Advertising Director: Edison Dasilva MD Nitrite, U Negative Normal Negative [facility] Comment on above: Performed By: #### 1 [id number] #### [facility] [address] [place] [address] 71303 Advertising Director: Edison Dasilva MD Non-Squamous Epithelial, U <1 Normal [facility] Comment on above: Performed By: #### 1 [id number] #### [facility] [address] [place] [address] 22315 Advertising Director: Edison Dasilva MD pH, U 6.5 Normal 4.5-8.0 [facility] Comment on above: Performed By: #### 1 65961 #### [facility] [address] [place] [address] 14287 Advertising Director: Edison Dasilva MD Protein, U 100 mg/dl Abnormal Negative [facility] Comment on above: Performed By: #### 1 [id number] #### [facility] [address] [place] [address] 32904 Advertising Director: Edison Dasilva MD RBC/HPF, U <1 Normal 0-3 [facility] Comment on above: Performed By: #### 1 [id number] #### [facility] [address] [place] [address] 96494 Advertising Director: Edison Dasilva MD Specific [place], U 1.025 Normal 1.001-1.035 [facility] Comment on above: Performed By: #### 1 17696 #### [facility] [address] [place] [address] 72510 Advertising Director: Edison Dasilva MD Squamous Epithelial Cells, U 2 #/HPF Normal [facility] Comment on above: Performed By: #### 1 [id number] #### [facility] [address] [place] [address] 43494 Advertising Director: Edison Dasilva MD U MICRO Indicated Normal [facility] Comment on above: Performed By: #### 1 [id number] #### [facility] [address] [place] [address] 81059 Advertising Director: Edison Dasilva MD U WBC CLUMPS Present Abnormal [facility] Comment on above: Performed By: #### 1 [id number] #### [facility] [address] [place] [address] 77817 Advertising Director: Edison Dasilva MD Urobilinogen Qual, U 0.2 EU/dl Normal 0.1-1.0 mg/dl [facility] Comment on above: Result Comment: EU/d l and mg/dl are equivalent units. Performed By: #### 1 [id number] #### [facility] [address] [place] [address] 65751 Advertising Director: Edison Dasilva MD WBC/HPF, U >30 High 0-5 [facility] Comment on above: Performed By: #### 1 [id number] #### [facility] [address] [place] [address] 04234 Advertising Director: Edison Dasilva MD 36on 02-20-2023 36 Repeat venous duplex in [facility] on February 26 @ 1:30 pm ; right before her RTX. Pt notified [facility] 36on 02-19-2023 36 Called patient back in regards to a ultrasound done today. The ultrasound did show a superficial thrombophlebitis in her left antecubital. Instructed patient to take ibuprofen to use heat and elevate arm. We will repeat an ultrasound in 1 week. We will call patient with an appointment. Patient verbalizes understanding. [facility] Bacteria identified Cx Nom ( U)Ordered By: Roque Ruth on 02-19-2023 Interpretation and review of laboratory results Normal [facility] No Panel Informationon 02-19 Superficial thrombophlebitis in the left median antecubital vein. No evidence of deep vein or superficial vein thrombosis in the right upper extremity. Vessels demonstrate normal compressibility, color filling, and phasic and spontaneous flow. Per Patient: Left upper extremity swelling and and pain in antecubital fossa x 2-3 days. Patient history of blood draw in left antecubital fossa x about 1 week ago. Patient was on Eliquis but stopped taking about one month ago. Patient history of cervical cancer with partial hysterectomy (cervix and uterus) removed on 12-17-2022. Patient currently undergoing radiation and chemotherapy with last treatments yesterday. Right Upper Venous No evidence of deep vein or superficial vein thrombosis. The internal jugular, subclavian, axillary, brachial, radial, ulnar, basilic, and cephalic veins were imaged in the transverse view and showed normal compressibility. The internal jugular, innominate, subclavian, and axillary veins were imaged in the longitudinal view and showed normal color filling and normal phasic and spontaneous flow. Left Upper Venous Internal Jugular Vein: Patent, normal phasicity, spontaneous, compressible. Innominate Vein: Patent, spontaneous. Subclavian Vein: Patent, normal phasicity, spontaneous, normal augmentation, compressible. Axillary Vein: Patent, normal phasicity, spontaneous, normal augmentation, compressible. Brachial Vein: Patent, normal phasicity, spontaneous, compressible. Radial Vein: Patent, compressible. Ulnar Vein: Patent, compressible. Cephalic Vein (Upper Arm): Patent, compressible. Cephalic Vein (Forearm): Patent, compressible. Basilic Vein (Upper Arm): Patent, compressible. Basilic Vein (Forearm): Patent, compressible. Median/Antecubital Vein: Superficial thrombophlebitis in the left median antecubital vein. Subacute superficial clot in the antecubital fossa Learning Services Coordinator Details A villalba scale, color Doppler imaging and spectral Doppler analysis ultrasound was performed. During the study longitudinal and transverse views were obtained. Continuous wave doppler and pulsed wave doppler was performed. The exam was performed with the patient in the supine position. Overall the study quality was adequate. CV CPACS Urine cultureOrdered By: Darren Ruth on 02-19-2023 Bacteria identified Cx Nom (U) Normal urogenital laurita present [facility] 36on 02-18-2023 36 Follow up phone call made to pt. Pt's wt. 120# (02/18/23). Pt. States that her appetite is improving and that she is consuming more fruit, water and an occasional Boost (Oral Nutritional Supplement). Provided positive reinforcement provided. During time of conversation, pt. Was receiving treatment. Asked pt. To relay to RN (Amisha) to provide ONS samples as well as a copy of the Smoothie Booklet. Phone call was made to Infusion number as well, and a message was left for nursing to provide items stated to the pt. Continue to monitor and follow. Mary Ann Hudson RDN LD CDE Normal [facility] CBC W Auto Differential pane l (Bld)Ordered By: Nikole Guardado on 02-18-2023 Basophils (Bld) [#/Vol] 0.0 10*3/uL 0.0 - 0.2 10*3/uL [facility] Basophils/100 WBC (Bld) 0.5 % 0.0 - 2.0 % [facility] Eosinophils (Bld) [#/Vol] 0.5 10*3/uL 0.0 - 0.5 10*3/uL [facility] Eosinophils/100 WBC (Bld) 5.7 % 1.0 - 6.0 % [facility] Erythrocyte distribution width (RBC) [Ratio] 12.5 % 11.5 - 14.5 % [facility] Hematocrit (Bld) [Volume fraction] 40.2 % 35.0 - 47.0 % [facility] Hemoglobin (Bld) [Mass/Vol] 13.8 g/dL 11.7 - 16.0 g/dL [facility] Immature granulocytes (Bld) [#/Vol] 0.0 10*3/uL NINF - 0.0 10*3/uL [facility] Immature granulocytes/100 WBC (Bld) 0.3 % High NINF - 0.0 % [facility] Interpretation and review of laboratory results Abnormal [facility] Lymphocytes (Bld) [#/Vol] 0.9 10*3/uL Low 1.0 - 4.3 10*3/uL [facility] Lymphocytes/100 WBC (Bld) 12.0 % Low 20.0 - 40.0 % [facility] MCH (RBC) [Entitic mass] 31.7 pg 26.0 - 34.0 pg [facility] MCHC (RBC) [Mass/Vol] 34.3 % 32.0 - 36.0 % [facility] MCV (RBC) [Entitic vol] 92.4 fL 80.0 - 98.0 fL [facility] Monocytes (Bld) [#/Vol] 0.6 10*3/uL 0.0 - 0.8 10*3/uL [facility] Monocytes/100 WBC (Bld) 7.4 % 2.0 - 10.0 % [facility] Neutrophils (Bld) [#/Vol] 5.8 10*3/uL 1.8 - 7.0 10*3/uL [facility] Neutrophils/100 WBC (Bld) 74.1 % 40.0 - 80.0 % [facility] Platelet mean volume (Bld) [Entitic vol] 8.8 fL 7.4 - 12.4 fL [facility] Comment on above: MPV is a calculated measurement using platelet volume ratio Platelets (Bld) [#/Vol] 248 10*3/uL 140 - 440 10*3/uL [facility] RBC (Bld) [#/Vol] 4.35 10*6/uL 3.8 - 5.20 10*6/uL [facility] WBC (Bld) [#/Vol] 7.8 10*3/uL 3.6 - 10.7 10*3/uL [facility] Comprehensive metabolic 1998 panelon 02-18-2023 Albumin [Mass/Vol] 4.5 g/dL 3.5 - 5.0 g/dL [facility] ALP [Catalytic activity/Vol] 124 U/L 38 - 126 U/L [facility] ALT [Catalytic activity/Vol] 14 U/L 0 - 34 U/L [facility] Anion gap [Moles/Vol] 3 mmol/L 3 - 13 mmol/L [facility] AST [Catalytic activity/Vol] 22 U/L 15 - 46 U/L [facility] Bilirubin [Mass/Vol] 0.3 mg/dL 0.2 - 1.3 mg/dL [facility] Calcium [Mass/Vol] 9.1 mg/dL 8.4 - 10. 4 mg/dL [facility] Chloride [Moles/Vol] 105 mmol/L 98 - 107 mmol/L [facility] CO2 [Moles/Vol] 30 mmol/L 22 - 30 mmol/L [facility] Creatinine [Mass/Vol] 0.65 mg/dL 0.52 - 1.04 mg/dL [facility] GFR/1.73 sq M.predicted MDRD (S/P/Bld) [Vol rate/Area] - PINF [facility] Comment on above: Calculation based on the Chronic Kidney Disease Epidemiology Collaboration (CKD-EPI) equation refit without adjustment for race Glucose [Mass/Vol] 99 mg/dL 70 - 100 mg/dL [facility] Interpretation and review of laboratory results Abnormal [facility] Potassium [Moles/Vol] 3.1 mmol/L Low 3.5 - 5.1 mmol/L [facility] Protein [Mass/Vol] 7.8 g/dL 6.3 - 8.2 g/dL [facility] Sodium [Moles/Vol] 138 mmol/L 135 - 145 mmol/L [facility] Urea nitrogen [Mass/Vol] 8 mg/dL 7 - 17 mg/dL [facility] Magnesiumon 02-18-2023 Magnesium [Mass/Vol] 2.0 mg/dL 1.6 - 2.3 mg/dL [facility] Magnesium [Mass/Vol]on 02-18 Interpretation and review of laboratory results Normal [facility] No Panel Informationon 02-18 [facility] Progress Noteon 02-18-2023 Progress Note ARRIVAL NOTE INFUSIO N Patient is here for chemotherapy and lab draw Labs were drawn via peripheral IV 1135 Spoke with Avel at Dr. Goldsmith's office. Patient continues to have pelvic pressure, difficulty urinating and emptying bladder. Urinalysis was obtained yesterday. Call placed to lab and specimen did not reflex to culture. If dr would like a culture, it will need to be ordered. Notified that potassium is 3.1. She is taking PO potassium at home as prescribed. Awaiting a returned call back. 1205 Shala Xiong MANAGEMENT TRAINEE MARKETING is placing order for culture of urine. Ok to proceed with chemotherapy. Add Potassium chloride 10 meq to pre and post hydration today for a total of 20 meq Kcl today. Discussed with patient and is agreeable to plan. 1631 Patient tolerated Cisplatin infusion well. No IV related complications. Reviewed home going instructions. Patient understands s/sx adverse reaction or complication to report to MD office. Patient denies questions or concerns. She is aware that ultrasound order was placed to evaluate her left upper arm and will follow up with Dr. Parham's office regarding scheduling. [facility] 02-17-2023 36 Pt was on her way to radiation. States that her left arm above the IV site that was used last week for chemotherapy is tender/painful to touch. The arm is not red or swollen and not warm to touch. Call placed to Shala Xiong. Shala left for the day. Spoke to Tana and Sara. Instructed to send a staff message to Shala since the Pt is coming back tomorrow. Will send a staff message to Shala . [facility] 36 Pt. Here for OTV and c/o inability to empty bladder and dysuria. Dr. Ocampo would like a UA with reflex to culture. Order routed to physician for approval. [facility] 02-12-2023 36 Pt missed a call. Informed her of the prn hydration plans and oral potassium called in yesterday. Normal [facility] 36on 02-11-2023 36 Pt potassium is 3.1 today. Amisha to give 20 at infusion today. Call in 20 meq of oral potassium daily. [facility] CBC W Auto Differential pane l (Bld)Ordered By: Richelle Tyler on 02-11-2023 Basophils (Bld) [#/Vol] 0.0 10*3/uL 0.0 - 0.2 10*3/uL [facility] Basophils/100 WBC (Bld) 0.6 % 0.0 - 2.0 % [facility] Eosinophils (Bld) [#/Vol] 0.3 10*3/uL 0.0 - 0.5 10*3/uL [facility] Eosinophils/100 WBC (Bld) 6.3 % High 1.0 - 6.0 % [facility] Erythrocyte distribution width (RBC) [Ratio] 12.3 % 11.5 - 14.5 % [facility] Hematocrit (Bld) [Volume fraction] 41.9 % 35.0 - 47.0 % [facility] Hemoglobin (Bld) [Mass/Vol] 14.5 g/dL 11.7 - 16.0 g/dL [facility] Immature granulocytes (Bld) [#/Vol] 0.0 10*3/uL NINF - 0.0 10*3/uL [facility] Immature granulocytes/100 WBC (Bld) 0.4 % High NINF - 0.0 % [facility] Interpretation and review of laboratory results Abnormal [facility] Lymphocytes (Bld) [#/Vol] 0.9 10*3/uL Low 1.0 - 4.3 10*3/uL [facility] Lymphocytes/100 WBC (Bld) 16.0 % Low 20.0 - 40.0 % [facility] MCH (RBC) [Entitic mass] 31.7 pg 26.0 - 34.0 pg [facility] MCHC (RBC) [Mass/Vol] 34.6 % 32.0 - 36.0 % [facility] MCV (RBC) [Entitic vol] 91.5 fL 80.0 - 98.0 fL [facility] Monocytes (Bld) [#/Vol] 0.4 10*3/uL 0.0 - 0.8 10*3/uL [facility] Monocytes/100 WBC (Bld) 7.7 % 2.0 - 10.0 % [facility] Neutrophils (Bld) [#/Vol] 3.8 10*3/uL 1.8 - 7.0 10*3/uL [facility] Neutrophils/100 WBC (Bld) 69.0 % 40.0 - 80.0 % [facility] Platelet mean volume (Bld) [Entitic vol] 8.9 fL 7.4 - 12.4 fL [facility] Comment on above: MPV is a calculated measurement using platelet volume ratio Platelets (Bld) [#/Vol] 420 10*3/uL 140 - 440 10*3/uL [facility] RBC (Bld) [#/Vol] 4.58 10*6/uL 3.8 - 5.20 10*6/uL [facility] WBC (Bld) [#/Vol] 5.4 10*3/uL 3.6 - 10.7 10*3/uL [facility] Comprehensive metabolic 1998 panelon 02-11-2023 Albumin [Mass/Vol] 5.0 g/dL 3.5 - 5.0 g/dL [facility] ALP [Catalytic activity/Vol] 125 U/L 38 - 126 U/L [facility] ALT [Catalytic activity/Vol] 14 U/L 0 - 34 U/L [facility] Anion gap [Moles/Vol] 6 mmol/L 3 - 13 mmol/L [facility] AST [Catalytic activity/Vol] 21 U/L 15 - 46 U/L [facility] Bilirubin [Mass/Vol] 0.4 mg/dL 0.2 - 1.3 mg/dL [facility] Calcium [Mass/Vol] 9.3 mg/dL 8.4 - 10. 4 mg/dL [facility] Chloride [Moles/Vol] 106 mmol/L 98 - 107 mmol/L [facility] CO2 [Moles/Vol] 28 mmol/L 22 - 30 mmol/L [facility] Creatinine [Mass/Vol] 0.69 mg/dL 0.52 - 1.04 mg/dL [facility] GFR/1.73 sq M.predicted MDRD (S/P/Bld) [Vol rate/Area] - PINF [facility] Comment on above: Calculation based on the Chronic Kidney Disease Epidemiology Collaboration (CKD-EPI) equation refit without adjustment for race Glucose [Mass/Vol] 107 mg/dL High 70 - 100 mg/dL [facility] Interpretation and review of laboratory results Abnormal [facility] Potassium [Moles/Vol] 3.1 mmol/L Low 3.5 - 5.1 mmol/L [facility] Protein [Mass/Vol] 8.2 g/dL 6.3 - 8.2 g/dL [facility] Sodium [Moles/Vol] 139 mmol/L 135 - 145 mmol/L [facility] Urea nitrogen [Mass/Vol] 10 mg/dL 7 - 17 mg/dL [facility] Laboratory - Chemistry and C hemistry - challengeon 02-11-2023 Magnesium [Mass/Vol] 2.1 mg/dL 1.6 - 2.3 mg/dL [facility] Magnesium [Mass/Vol]on 02-11 Interpretation and review of laboratory results Normal [facility] Progress Noteon 02-11-2023 Progress Note ARRIVAL NOTE INFUSIO N Patient is here for chemotherapy and lab draw Labs were drawn via peripheral IV 1020 Per Shala Xiong NP, give KCl 10 meq in pre hydration and KCl 10 meq in post hydration for a total of 20 meq IV today. She will also be sending in a prescription for PO potassium. Discussed with patient and she is agreeable to this plan. 1450 Patient tolerated Cisplatin infusion well. No IV related complications. Reviewed home going instructions. Patient understands s/sx adverse reaction or complication to report to MD office. Patient denies questions or concerns. Patient to radiation treatment She is scheduled for Friday for IV hydration as last week, she started having nausea and vomiting and diarrhea on Friday after treatment. She does have Imodium for diarrhea and reinforced use of antiemetics. [facility] 3602-07-2023 36 This worker received patient's [facility] glenys application from admissions officer at [facility]. Reached out to patient on this date to assist patient with completing the application over the phone. This worker faxed the application to the [facility] at fax # [phone]. No other needs reported at this time. Patient has this worker's contact information and voices understanding to reach out if supportive care needs or questions arise. [facility] 36on 02-06-2023 36 Reached out to patient on this date via phone to follow up regarding the [facility] glenys application this worker provided to patient previously. Patient states she has the application completed she just has not had a chance to submit it yet. Encouraged patient to bring the completed application to [facility] if she would like assistance submitting it. Notified admissions officer, Leonela Tong that patient may be bringing an application for this worker. [facility] PATINSon 02-04-2023 PATINS Raymond Instant Breakfast when decreased appetite Normal [facility] Progress Noteon 02-04-2023 Progress Note ARRIVAL NOTE INFUSIO N Patient is here for chemotherapy and lab draw Labs were drawn via peripheral IV 1049 CMP and Mag hemolyzed. Redrawn off IV and sent 1500 Patient tolerated Cisplatin infusion well. No IV related complications. Reviewed home going instructions. Patient understands s/sx adverse reaction or complication to report to MD office. Patient denies questions or concerns. AVS signed. Patient has January and February calendar. [address] 02-03-2023 36 Request for medication refill pended and routed to physician for approval. [address] 01-22-2023 36 Received return call from patient on this date. Notified patient that the gas gift card and [employer] application this worker mailed to patient were returned to sender. 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 Patient voices understanding to reach out if additional supportive care needs or questions arise. [facility] 36 The [employer] application and gas gift card this worker mailed to patient were returned to sender. This worker reached out to patient on this date to let her know the mailing was returned to this worker and to discuss another plan to get the mailing to patient. No answer. Left voicemail requesting return call. [address] 01-21-2023 36 Spoke to patient and reviewed calendar of appointments. She is aware that her chemo will start on 02/04/23@10 am. Will mail calendar and she is aware that she can also obtain a copy at her infusion appointment. Encouraged to call with questions or issues. [facility] CT SIMULATION WO CONTRAST - RADIATION ONCOLOGYon 01-19-2023 CT SIMULATION WO CONTRAST - RADIATION ONCOLOGY Patient Name: COREY PERLA : 1990 Exam Date/Time: 01/16/2023 11:47 Procedure: CT SIMULATION WO CONTRAST - RADIATION ONCOLOGY Ordering Provider: OCAMPO OSCAR Reason For Exam: MALIGNANT NEOPLASM OF CERVIX CLINICAL INFORMATION: Cervical cancer. Radiation-therapy planning CT. 3 mm axial cuts are obtained through the chest, abdomen, and pelvis without IV contrast. Dose reduction was employed with automated exposure control. The examination is compared to a prior PET/CT dated 12/06/2022. FINDINGS: An endocervical probe is in place. The uterus is now surgically absent. A small amount of free fluid is present in the dependent pelvis. There is a loculated collection deep to the right oblique muscle. This measures approximately 4.5 x 3.5 cm in the axial plane (image #110). No other abdominal/pelvic collections are appreciated. The liver and spleen are homogeneous in their attenuation. The pancreas and adrenal glands are unremarkable on this unenhanced scan. Small nonobstructing renal calculi are noted bilaterally. There is no hydronephrosis or hydroureter. There is no evidence of bowel obstruction. IMPRESSION: 1. Radiation-therapy planning CT. 2. Now status post hysterectomy. 3. Loculated collection of fluid along the right pelvic wall (deep to the oblique muscles). This may represent a postoperative seroma or lymphocele. If indicated, this would be easily amenable to CT-guided percutaneous aspiration/drainage. 4. Bilateral nonobstructing renal calculi. Report Dictated on Electronically Signed By: Moses Hatch Electronically Signed Date/Time: 01/19/2023 4:08 PM EDT [facility] 36on 01-10-2023 36 Reached out to patient on this date via phone. Introduced self and role. 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 Currently patient is not working because she had a recent surgery and she will be undergoing treatments for her cancer diagnosis. Patient states usually she lives with her parents but right now she is staying with her significant other because he lives closer to [facility], where patient will be receiving daily treatments. Patient states her significant other's address is still about 30 minutes away from [facility] so patient is concerned about the cost of gas getting to and from treatments. Provided education on the [employer] glenys application patient can complete once she is in active treatment. Explained to patient that she can request assistance with gas on that application. This worker to mail patient a [employer] application. Encouraged patient to reach out if she needs assistance completing or submitting the application. This worker to also mail patient a gas gift card. Patient requests the mailings go to her significant other's address (where she is currently staying) [facility] [place] [address]. Application and gift card mailed. No other needs reported at this time. Patient has this worker's contact information and voices understanding to reach out if supportive care needs or questions arise. [facility] 36on 01-07-2023 36 Reached out to patient who had some financial concerns. She states that the only concern she has at this time is paying for gasoline to get her back and forth to appointments. Will continue to follow. [facility] 36on 01-02-2023 36 Approved Dilaudid, 4 mg oral every four hours using [employer] verification system. [facility] [address] Dr. Ocampo assesse d the patient during a new consult appointment. Dr. Ocampo gave a verbal order for Dilaudid 4mg every 4 hours as needed for severe pain and Zofran 8mg 1 hour prior to radiation and 6 hours after radiation. Request for medication fill pended and routed to physician for approval. [facility] Hospital Encounteron 023 Hospital Encounter [id number] Corey Perla 1990 F Date Provider Department Center 01/02/2023 [id number] OCAMPO [facility] RAD ON None Family History Problem Relation Age of Onset Stroke Mother Multiple sclerosis Mother Diabetes Mother Cervical cancer Mother Breast cancer Mother Breast cancer Maternal Grandmother Breast cancer Paternal Grandmother Colon cancer Neg Hx Ovarian cancer Neg Hx Family Status - Relation Status Age at Mother Alive Maternal Grandmother Paternal Grandmother Neg Hx Level of Service:43631 CO OFFICE/OUTPATIENT NEW [facility] 60-74 MINUTES Reason for Visit and Comments: Consult [484] [facility] Nursing Noteon 01-02-2023 Nursing Note The patient is here at [place] with her boyfriend for a new consult with Dr. Ocampo. The patient denies any previous history of chemotherapy or radiation therapy. The patient denies having a pacemaker or another implantable device. The patient states her appetite has improved as of recent (approx 2 weeks after her surgery). She denies having any appetite until she begin to use marijuana. She reports a 35lb weight loss over the last year. Her nutrition screening score was 8. The RN will make a referral to the Dietitian for her nutritional screening score. She states, I am always tired even before my surgery. Her fatigue level is 4/10. She states her sleeping is terrible. She is unable to sleep related to pain. She is having constant aching pain 7/10 in her right lower abdomen. The area is very tender to touch. She states she was diagnosed with a right flank hematoma by a CT scan. The patient states she was informed that the hematoma is thought to be secondary to the tap block she received. Dr. De La Rosa has informed her to stop taking her po Eliquis. She denies experiencing any vaginal spotting/bleeding, drainage, dryness, pain or odor. She states she has a stabbing sensation/pain at the completion of urinating. She said this sensation is present every time she urinates. This sensation was not present immediately after surgery. It has been occurring for the last 3 days. She did have severe constipation recently. She is taking OTC Dulcolax prn and her bowel issues have resolved. The RN gave and reviewed and external radiation information packet and a patient resource guide. The patient verbalized understanding. [facility] Nursing Note Dr. Ocampo reviewe d consent with the patient. The patient signed consent. The RN signed as a witness. The RN gave and reviewed skin care instructions with the patient. The patient verbalized understanding. [facility] ADDENDUMNOTEon 01-01-2023 ADDENDUMNOTE Addended by: AVEL ZEPEDA on: 01/01/2023 12:01 PM Modules accepted: Orders [facility] Office Visiton 01-01-2023 Follow-up visit [id number] Corey Perla 1990 F Date Provider Department Center 01/01/2023 [id number] DE LA ROSA 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 None Family History Problem Relation Age of Onset Stroke Mother Multiple sclerosis Mother Diabetes Mother Cervical cancer Mother Breast cancer Maternal Grandmother Breast cancer Paternal Grandmother Colon cancer Neg Hx Ovarian cancer Neg Hx Family Status - Relation Status Age at Mother Alive Maternal Grandmother Paternal Grandmother Neg Hx Level of Service:28217 CO POSTOP FOLLOW UP VISIT RELATED TO ORIGINAL PX Reason for Visit and Comments: Post-op Visit [479] [facility] Progress Noteon 01-01-2023 Progress Note Postop visit Status post abdominal radical hysterectomy bilateral salpingectomy and bilateral for proxy for a stage I B1 endocervical carcinoma. A. SENTINEL LYMPH NODE, RIGHT PELVIC, DISSECTION - -THREE LYMPH NODES NEGATIVE FOR METASTATIC CARCINOMA (0/3) B. 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 -PROLIFERATIVE PHASE ENDOMETRIUM -UNREMARKABLE BILATERAL FALLOPIAN TUBES -UNREMARKABLE PARAMETRIUM -TWO LYMPH PARAMETRIAL NODES NEGATIVE FOR METASTATIC CARCINOMA (0/2) -NEGATIVE RESECTION MARGINS. C. SENTINEL LYMPH NODE, LEFT PELVIC, DISSECTION - -FIVE LYMPH NODES NEGATIVE FOR METASTATIC CARCINOMA (0/5) at 1417 Comment The tumor was not grossly identified or able to be measured grossly, however was submitted microscopically and found to have significant involvement of 12 tissue blocks. The blocks measure 0.4 cm in thickness. The tumor size is estimated at 4.8 cm based on that information. The radiology report demonstrates a 4.0 cm measurement. Staging is at least pT1b2 based on on the radiographic measurement, but may be slightly larger and fall into the category of pT1b3 using the estimated measurement of 4.8 cm. Please correlate with clinical and operative findings. Synoptic Checklist UTERINE CERVIX: Resection 9th Edition - Protocol posted: 05/25/2021 UTERINE CERVIX: TRACHELECTOMY, HYSTERECTOMY, PELVIC EXENTERA - All Specimens SPECIMEN Procedure Radical hysterectomy Bilateral salpingectomy Hysterectomy Type Abdominal TUMOR Tumor Site Circumfrential Tumor Size Greatest Dimension (Centimeters): 4.8 (estimated, see comment) cm Additional Dimension (Centimeters) 1.6 cm 1.1 cm Histologic Type Adenocarcinoma, NOS Histologic Type Comment P16 is pending for evalaution of HPV association. Histologic Grade G1, well differentiated Depth of Stromal Invasion 11 mm Extent of Depth of Stromal Invasion Deep one-third Horizontal Extent of Stromal Invasion 18 mm Duarte System for Invasion Not applicable Other Tissue / Organ Involvement Not identified Lymphovascular Invasion Present MARGINS Margin Status for Invasive Carcinoma All margins negative for invasive carcinoma Closest Margin(s) to Invasive Carcinoma Radial / circumferential: 6-9 oclock area Distance from Invasive Carcinoma to Closest Margin 5 mm Margin Status for HSIL or AIS All margins negative for high-grade squamous intraepithelial lesion (HSIL) and / or adenocarcinoma in situ (AIS) REGIONAL LYMPH NODES Regional Lymph Node Status All regional lymph nodes negative for tumor cells Lymph Nodes Examined Total Number of Pelvic Nodes Examined 10 Number of Pelvic Rudolph Nodes Examined 8 Total Number of Para-aortic Nodes Examined 0 PATHOLOGIC STAGE CLASSIFICATION (pTNM, AJCC 9th Version) Reporting of pT, pN, and (when applicable) pM categories is based on information available to the pathologist at the time the report is issued. As per the AJCC (Chapter 1, 8th Ed.) it is the managing physician?s responsibility to establish the final pathologic stage based upon all pertinent information, including but potentially not limited to this pathology report. pT Category pT1b3 Patient did undergo a CT scan which does show a right flank hematoma thought to be secondary to the tap block. This is away from the incision. On exam today the incision is healing nicely. There is tenderness in the right flank, no evidence of fluctuance is noted. The incision is healing nicely. A) stage Ib 3 adenocarcinoma the endocervix status post radical hysterectomy bilateral salpingectomy and sentinel lymph node sampling. Does meet Sedlis criteria for adjuvant radiotherapy P) also discussed with patient that there may be a benefit to adjuvant chemotherapy as well. I did state that that is not yet fully determined if chemotherapy is helpful. I did offer her weekly cisplatin them and she accepted. We will plan on weekly cisplatin 40 mg per metered squared while she is undergoing external beam radiotherapy. Recommended heat pad for the hematoma and continued [id number] medicine. We will also recommend stopping the Eliquis. Normal [facility] Progress Note Pt educated on cisplatin and radiation. Went over nausea/vomiting and calling in [employer]/compazine to [facility] [place]. Pt informed of cisplatin being hard on the kidneys and drinking 6-8 glasses of fluids per day. Pt aware of hydration pre and post chemotherapy. Went over diarrhea and constipation side effects. Pt to take imodium for diarrhea and on stool softener currently and informed of adding miralax if needed. Pt informed to call if any ringing in ears and ototoxicity. Pt aware of immunosuppression and importance of hand washing and masks. Pt informed of blood abnormalities and labs prior to chemotherapy. Pt given chemo therapy binder. Went over supportive services available to pt. All of the patients and boyfriends questions were answered. Will wait for radiation to call to schedule cisplatin. Will mail chemo calendar to pt once all scheduled. [facility] 36on 12-26-2022 36 Patient back patient is still experiencing severe pain in her right side of her abdomen postoperatively. Patient does state that she has cut way down on the pain pills and that she is starting to feel better and the pain is starting to lessen. Patient is taking Tylenol as needed also. Patient is also using heat and abdominal binder for support. Will refill pain medication for 3 more days. OARRS report ran. Patient verbalizes understanding [facility] 36 Patients mother called in states her daughter is still having a lot of pain and she is out of pain medication and needs a refill she uses [facility] in [facility] 36on 12-24-[address] scan was done at [facility], Ct is now in PACS. [facility] 36 Called pt to let her know she has an appt this am at 1030. Pt verbalized understanding. [facility] 36 Name of caller requesting page:Radha Phone Number of caller: [phone] Facility requesting page: [facility] Reason for Page: Dr jl Sigala Request from Dr Marshall Provider paged: Dr Breonna [facility] Name of paged provider: Tari Parham and Agus Time Page was sent or provider contacted: 2:49 am Page Content: Radha from [facility] for pt Kameron Perla [birth year][address] jl Sigala Request from Dr Marshall [facility] Absolute lymphocyte countOrd ered By: Dr. Marshall on 12-24-2022 Lymphocytes Auto (Unsp spec) [#/Vol] 2.21 10*3/uL 0.83-4.51 [facility] Basophil percentageOrdered B y: Dr. Marsahll on 12-24-2022 Basophil percentage 0 SEEN /hpf 0-5 [facility] Lactate [Moles/Vol] 0.9 mmol/L 0.4-2.0 [facility] Basophils/100 WBC (Bld) 0.5 % 0-1 [facility] Bilirubin [Mass/Vol] 0.90 mg/dL 0.20-1.00 [facility] Comment on above: For patients on eltr ombopag therapy, use of Dimension Thornton TBIL is not recommended. Chloride [Moles/Vol] 93 mmol/L 98-107 [facility] Eosinophils/100 WBC (Bld) 1.1 % 0-5 [facility] Glucose [Mass/Vol] 119 mg/dL 74-106 [facility] Comment on above: Fasting Glucose resu lt from 100 to 125 mg/dL suggests IMPAIRED HOMEOSTASIS per A.D.A. criteria. Neutrophils (Bld) [#/Vol] 18.3 10*3/uL 2.0-7.7 [facility] Neutrophils/100 WBC (Bld) 78.9 % 47-70 [facility] Potassium [Moles/Vol] 3.5 mmol/L 3.5-5.1 [facility] Protein [Mass/Vol] 8.6 g/dL 6.4-8.2 [facility] Sodium [Moles/Vol] 132 mmol/L 136-145 [facility] WBC (Bld) [#/Vol] 23.2 10*3/uL 4.4-11.0 [facility] Bilirubin Test strip Ql (U)O rdered By: Dr. Marshall on 12-24-2022 Bilirubin Ql (U) Negative Negative [facility] Blood erythrocytes count (nu mber/volume)Ordered By: Dr. Marshall on 12-24-2022 RBC (Bld) [#/Vol] 3.87 10*6/uL 4.2-5.4 [facility] Blood hemoglobin measurement (mass/volume)Ordered By: Dr. Marshall on 12-24-2022 Hemoglobin (Bld) [Mass/Vol] 12.4 g/dL 12.0-15.0 [facility] Blood lymphocytes/100 leukoc ytesOrdered By: Dr. Marshall on 12-24-2022 Lymphocytes/100 WBC (Bld) 9.5 % 19-41 [facility] Blood manual differential co mment interpretation (narrative result)Ordered By: Dr. Marshall on 12-24-2022 Manual differential comment Shahram (Bld) [Interp] SCANNED [facility] Blood monocytes/100 leukocyt esOrdered By: Dr. Marshall on 12-24-2022 Monocytes/100 WBC (Bld) 9.2 % 0-10 [facility] Blood platelet adequacy dete ction by light microscopyOrdered By: Dr. Marshall on 12-24-2022 Platelets LM Ql (Bld) MOD INC ADEQ [facility] Blood platelet mean volumeOr dered By: Dr. Marshall on 12-24-2022 Platelet mean volume (Bld) [Entitic vol] 9.5 fL 6.2-12.0 [facility] Determination of erythrocyte mean corpuscular volume (MCV)Ordered By: Dr. Marshall on 12-24-2022 MCV (RBC) [Entitic vol] 91.7 fL 81-99 [facility] Hematocrit Auto (Bld) [Volum e fraction]Ordered By: Dr. Marshall on 12-24-2022 Hematocrit (Bld) [Volume fraction] 35.5 % 37-47 [facility] Ketones Test strip Ql (U)Ord ered By: Dr. Marshall on 12-24-2022 Ketones Ql (U) 150 mg/dl Negative [facility] Comment on above: CRITICAL VALUE VERIF IED. CALLED TO Zuleika MONACO RN ER12/24/22 0113 Gera Bragg.RESULTS READ BACK BY SAME. CRITICAL VALUE *H Laboratory - Chemistry and C hemistry - challengeOrdered By: Dr. Marshall on 12-24-2022 ALP [Catalytic activity/Vol] 110 U/L 45-117 [facility] ALT [Catalytic activity/Vol] 16 U/L 13-56 [facility] CO2 [Moles/Vol] 18.0 mmol/L 21.0-32.0 [facility] Globulin (S) [Mass/Vol] 4.6 g/dL 2.2-4.2 [facility] Lipase [Catalytic activity/Vol] 51 U/L 73-393 [facility] Urea nitrogen/Creatinine [Mass ratio] 19.5 mg/mg 10-20 [facility] Laboratory - Hematology and Cell countsOrdered By: Dr. Marshall on 12-24-2022 Erythrocyte distribution width (RBC) [Entitic vol] 42.1 fL 35.1-43.9 [facility] Erythrocyte distribution width (RBC) [Ratio] 12.8 % 11.6-14.6 [facility] Immature granulocytes/100 WBC (Bld) 0.800 % 0.0-0.9 [facility] Comment on above: IG% - Immature Granu locytes (promyelocytes, myelocytes and metamyelocytes) > 1% indicates that a LEFT SHIFT is Present. MCH (RBC) [Entitic mass] 32.0 pg 27.0-32.0 [facility] Nucleated RBC/100 WBC (Bld) [Ratio] 0 % 0-5 [facility] MCHC Auto (RBC) [Mass/Vol]Or dered By: Dr. Marshall on 12-24-2022 MCHC (RBC) [Mass/Vol] 34.9 g/dL 32-36 [facility] Mucus LM Ql (Urine sed)Order ed By: Dr. Marshall on 12-24-2022 Mucus Ql (Urine sed) 0 SEEN /hpf [facility] Nitrite Test strip Ql (U)Ord ered By: Dr. Marshall on 12-24-2022 Nitrite Ql (U) Negative Negative [facility] No Panel InformationOrdered By: Dr. Marshall on 12-24-2022 Estimated Creatinine Clearance Calc 125.69 ml/min [facility] Estimated GFR (MDRD) Amer 161 mL/min >60 [facility] Comment on above: GFR Calc Estimated GFR (MDRD) Non-Af Amer 133 mL/min >60 [facility] Comment on above: Non- GFR Calc Office Visiton 12-24-2022 Follow-up visit [id number] Corey Perla 1990 F Date Provider Department Center 12/24/2022 [id number] EDWARDS 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 None Family History Problem Relation Age of Onset Stroke Mother Multiple sclerosis Mother Diabetes Mother Cervical cancer Mother Breast cancer Maternal Grandmother Breast cancer Paternal Grandmother Colon cancer Neg Hx Ovarian cancer Neg Hx Family Status - Relation Status Age at Mother Alive Maternal Grandmother Paternal Grandmother Neg Hx Level of Service:97674 [place] POSTOP FOLLOW UP VISIT RELATED TO ORIGINAL PX Reason for Visit and Comments: Follow-up [[id number]] - ER follow up for RLQ pain, imaging was preformed and in pacs Normal [facility] Platelets bldOrdered By: Dr. Marshall on 12-24-2022 Platelets (Bld) [#/Vol] 582 10*3/uL 150-450 [facility] Progress Noteon 12-24-2022 Progress Note Chief Complaint Patient presents with Follow-up ER follow up for RLQ pain, imaging was preformed and in pacs History of the Present Illness: Corey Perla is a 32 y.o. who presents to the office for post-operative evaluation. She underwent RADICAL HYSTERECTOMY WITH BILATERAL SALPINGECTOMY, BILATERAL PELVIC SENTINEL LYMPH NODE BIOPSY WITH ICG PROTOCOL LYMPHANGIOGRAPHY FOR IDENTIFICATION SENTINEL NODE ROBOTIC (XI) LAPAROSCOPY PELVIC LYMPHADENECTOMY WITH STEVEN-AORTIC SAMPLING on 12/17/22 and final pathology showed: Final Diagnosis A. SENTINEL LYMPH NODE, RIGHT PELVIC, DISSECTION - -THREE LYMPH NODES NEGATIVE FOR METASTATIC CARCINOMA (0/3) B. 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 -PROLIFERATIVE PHASE ENDOMETRIUM -UNREMARKABLE BILATERAL FALLOPIAN TUBES -UNREMARKABLE PARAMETRIUM -TWO LYMPH PARAMETRIAL NODES NEGATIVE FOR METASTATIC CARCINOMA (0/2) -NEGATIVE RESECTION MARGINS. C. SENTINEL LYMPH NODE, LEFT PELVIC, DISSECTION - -FIVE LYMPH NODES NEGATIVE FOR METASTATIC CARCINOMA Interval History: Since her surgery she has been doing well and is without complaints. She denies fevers, chills, nausea, vomiting,or bladder dysfunction. No drainage from incisions. No abnormal vaginal bleeding or discharge. Presents today after being seen in the emergency room last night for 10 out of 10 right lower quadrant pain. Was diagnosed with a hematoma from a CT scan. Patient states she is doing a little better today. I did recommend and encouraged using heat on her abdomen and also a abdominal binder for extra support. Patient states she has also been constipated, I did give her a bowel regimen. Explained to patient that this can be slow healing and will continue to use Tylenol and Dilaudid for breakthrough pain. 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 Physical Exam Constitutional: Appearance: Normal appearance. Pulmonary: Effort: Pulmonary effort is normal. Abdominal: General: Abdomen is flat. Palpations: Abdomen is soft. Comments: Well-healing midline incision without erythema, warmth, induration, or discharge. Steri-strips intact. Neurological: General: No focal deficit present. Mental Status: She is alert and oriented to person, place, and time. Psychiatric: Mood and Affect: Mood normal. Behavior: Behavior normal. Assessment/Plan: 32 y.o. s/p RADICAL HYSTERECTOMY WITH BILATERAL SALPINGECTOMY, BILATERAL PELVIC SENTINEL LYMPH NODE BIOPSY WITH ICG PROTOCOL LYMPHANGIOGRAPHY FOR IDENTIFICATION SENTINEL NODE ROBOTIC (XI) LAPAROSCOPY PELVIC LYMPHADENECTOMY WITH STEVEN-AORTIC SAMPLING for Malignant neoplasm of endocervix. Doing well from a post-operative standpoint. Post-operative instructions reviewed. Patient was given a copy of the pathology report for her records. Call with any worsening symptoms. The patient had an opportunity to ask questions, all of which were answered to the best of my ability. She is in agreement with the above noted plan. Follow up on 01/01/[address] De La Rosa. [facility] Protein Test strip Ql (U)Ord ered By: Dr. Marshall on 12-24-2022 Protein Ql (U) 30 mg/dl Negative [facility] Review by pathologistOrdered By: Dr. Marshall on 12-24-2022 Pathologist review Shahram (Unsp spec) [Interp] [facility] Serum or plasma albumin haydee urement (mass/volume)Ordered By: Dr. Marshall on 12-24-2022 Albumin [Mass/Vol] 4.0 g/dL 3.2-5.0 [facility] Serum or plasma albumin/glob ulin mass ratioOrdered By: Dr. Marshall on 12-24-2022 Albumin/Globulin [Mass ratio] 0.9 {ratio} 0.9-2.4 [facility] Serum or plasma calcium haydee urement (mass/volume)Ordered By: Dr. Marshall on 12-24-2022 Calcium [Mass/Vol] 9.9 mg/dL 8.5-10.1 [facility] Serum or plasma creatinine m easurement (mass/volume)Ordered By: Dr. Marshall on 12-24-2022 Creatinine [Mass/Vol] 0.56 mg/dL 0.55-1.02 [facility] Comment on above: The validity of the calculated GFR & GFRAA in patients over 70 years has not been determined. Clinical correlation is essential. Serum or plasma urea nitroge n measurement (mass/volume)Ordered By: Dr. Marshall on 12-24-2022 Urea nitrogen [Mass/Vol] 11 mg/dL 7-18 [facility] Squamous epithelial cells de tection in urine sediment by light microscopyOrdered By: Dr. Marshall on 12-24-2022 Epithelial cells.squamous LM Ql (Urine sed) 0-5 SEEN /hpf 5-10 [facility] Thin prep Papanicolaou smear with manual screeningOrdered By: Dr. Marshall on 12-24-2022 Thin prep Papanicolaou smear with manual screening 17 U/L 15-37 [facility] Thin prep Papanicolaou smear with manual screening 21 5-15 [facility] Urine blood detectionOrdered By: Dr. Marshall on 12-24-2022 RBC Ql (U) 10 /ul Negative [facility] RBC Ql (U) 0 SEEN /hpf 0-5 [facility] Urine clarityOrdered By: Dr. Marshall on 12-24-2022 Clarity (U) Clear Clear [facility] Urine color determinationOrd ered By: Dr. Marshall on 12-24-2022 Color (U) Yellow Yellow [facility] Urine glucose detectionOrder ed By: Dr. Marshall on 12-24-2022 Glucose Ql (U) Normal mg/dl Normal [facility] Urine leukocyte esterase det ection by dipstickOrdered By: Dr. Marshall on 12-24-2022 Leukocyte esterase Test strip Ql (U) Negative Negative [facility] Urine pHOrdered By: Dr. Ewa willams on 12-24-2022 pH (U) 5.0 [pH] 5.0 - 8.0 [facility] Urine sediment bacteria coun t by microscopy (number/high power field)Ordered By: Dr. Marshall on 12-24-2022 Bacteria LM.HPF (Urine sed) [#/Area] 1 /[HPF] None Seen [facility] Urine specific gravity measu rementOrdered By: Dr. Marshall on 12-24-2022 Specific gravity (U) [Rel density] 1.025 1.002-1.030 [facility] Urobilinogen Auto test strip Ql (U)Ordered By: Dr. Marshall on 12-24-2022 Urobilinogen Ql (U) Normal mg/dl Normal [facility] 36on 12-23-2022 36 Called with path report. Also complaining of worsening right sided pain. Is still using Dilaudid [id number]. Recommend that the patient go to the emergency room if she is having increasing pain. I did refill her Dilaudid 2 mg tablets dispense 30 to last for the next 5 days. Normal [facility] 36 Called patient is having right sided pain. Taking tylenol 500mg two times a day. Currently taking Dilaudid 2 mg. Patient rates her pain 8 out of a 10 on her right side. Instructed patient to continue with pain medication and Tylenol and to add heat for additional comfort. Denies any fever. Patient does state that she is having vasomotor symptoms that started after surgery. Patient states her right side of abdomen is edematous. Instructed to go to emergency room if pain is uncontrollable. Patient verbalizes understanding [facility] 36 Spoke with pt she is uncontrollably crying with rt sided pain. Pt mom states pain not under control. Pt states before she takes dilaudid 2 mg she is 10/10 pain and after dilaudid 8/10 pain. Pt cant rotate motrin and using the 500 mg tylenol. Pt number not working please call moms number at [phone]. Mom would like new pain med called to [facility] in [place]. Normal [facility] 36 Patient's sister is calling on behalf of Corey. They have some post surgery questions. [facility] CARECOORDon 12-20-2022 [facility] TRANSITIONAL CARE DAILY NOTE/UPDATES: Patient remains on H5 due to S/P AMINA-BS 12/17. Clinical updates: Patient on a regular diet. IV pain meds. Discharge plan: Home with mother. Discharge obstacles: None noted. TCC to continue to follow. [facility] Patient did not have a director of casework through her insurance. ADAPTIVE PHYSICAL EDUCATION TEACHER asked Patient if she was interested in having one. Patient agreed to case management with Matt, . Matt to contact Patient regarding referral. [facility] Progress Noteon 12-20-2022 Progress Note Patient discussed at morning rounds. Per RN, no mobility needs at this time. Please consult PT/OT if any needs arise. Hyun Dennis, PT, DPT [facility] Progress Note PAGING: The Acute Pain Service providers are available exclusively via [employer]. APS does not utilize pagers. Due to the current environment of [place] [id number], PPE was worn for the duration of all face to face encounters including but not limited to an N95 in accordance with [facility] and hospital guidelines. 12/20/2022 Subjective: We have been asked to see this 32 y.o. female for postoperative pain management s/p Radical hysterectomy with bilateral salpingectomy, bilateral pelvic sentinel lymph node biopsy with ICG protocol. Lymphangiography for identification sentinel node, robotic lap pelvic lymphadenectomy with steven-aortic sampling on 12/17/22. Reviewed PET/CT 12/06/22 RAMIRO, no pages. On arrival, pt lying in bed sleeping. States pain is better today, feels shoulder pain has resolved. Tolerating diet, denies nausea/vomiting. Pt states she would like to discharged home today. PMH reviewed below Sedation score: 1: Awake and alert Pain Severity: moderate Pain Location: Abdomen-incisional: improved. Right shoulder pain Pain Quality: aching Aggravating Factors: Moving Alleviating Factors: Rest/Pain medications Social History Tobacco Use Smoking Status Every Day Packs/day: 0.50 Years: 15.00 Pack years: 7.50 Types: Cigarettes Smokeless Tobacco Not on file Social History Substance and Sexual Activity Alcohol Use Never Social History Substance and Sexual Activity Drug Use Never Pain Management: n/a The patient's medical history and physical assessment, medications, allergies, patient's current medical condition, imaging, and labs were reviewed as part of this consultation. [x] Patient's Medications have been reviewed. [x] Patient's OARRS report (PDMP) have been reviewed. Filled Written Drug QTY Days 12/04/2022 12/04/2022 Oxycodone-Acetaminoph en 5-325 20.00 5 11/15/2022 11/15/2022 Hydrocodone-Acetamin 5-325 Mg 4.00 1 2022 2022 Tramadol Hcl 50 Mg Tablet 12.00 3 09/03/2022 09/03/2022 Diazepam 10 Mg Tablet 45.00 15 11/18/2021 11/18/2021 Oxycodone Hcl (Ir) 10 Mg Tab Objective Findings: Height: 162.6 cm (5' 4.02) Weight: 57.2 kg (126 lb 1.7 oz) BMI (Calculated): 21.63 Vital signs: Blood pressure 136/89, pulse 88, temperature 37.2 ?C (98.9 ?F), temperature source Temporal, resp. rate 20, height 1.626 m (5' 4.02), weight 57.2 kg (126 lb 1.7 oz), SpO2 97 %. Allergies: Patient has no known allergies. 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 Cardiovascular: Negative for chest pain. Gastrointestinal: Positive for abdominal pain. Negative for nausea and vomiting. Musculoskeletal: Positive for arthralgias (right shoulder pain). Skin: Positive for wound (surgical). Psychiatric/Behaviora l: Negative for confusion. Physical Exam Vitals and nursing note reviewed. Constitutional: General: She is not in acute distress. Cardiovascular: Rate and Rhythm: Normal rate. Pulmonary: Effort: Pulmonary effort is normal. Abdominal: Tenderness: There is abdominal tenderness. Skin: General: Skin is warm and dry. Neurological: Mental Status: She is alert and oriented to person, place, and time. Psychiatric: Mood and Affect: Mood normal. Behavior: Behavior normal. Pain Management Adjuvants: 0700 --> 0700 12/17/202212/18 Scheduled APAP 3000mg 3600mg 2,600 mg Gabapentin x 300mg 300 mg Lidocaine patches xx xx ibuprofen 800mg 1600mg 800 mg PRN Hydromorphone IV 3.5mg 3mg 2 mg Methocarbamol x 2000mg 2000 mg ketorolac 105mg 30mg 60 mg Hydromorphone PO 20mg 20 mg No results found for: CREATININE, AST, ALT Assessment / Pain Management Plan: Acute Postsurgical Abdominal pain Multimodal pain regimen: BLOCK: TAP 12/17/22 Continue Acetaminophen 650 mg po q4h scheduled ATC. Continue Lidocaine patch x 1. Cut and place as needed. Continue po hydromorphone 2-4mg q4h prn Decrease IV Hydromorphone to 0.5 mg 2 times daily PRN for severe breakthrough pain only. Continue ibuprofen Continue Gabapentin 300 mg po nightly. continue Ketamine 10 mg po four times daily, scheduled. Call Acute Pain Service provider for concerns of inadequate pain relief; respiratory rate less than 10/min; somnolence; obtundation; or hallucinations. Medication can be discontinued prior to discharge. Continue Methocarbamol 1000 mg PO TID PRN. O (more content not included)... Normal [facility] Progress Note - Attestation signed by Fernando De La Rosa MD at 12/20/2022 10:35 AM Patient rounded with residents. Doing well. Pain is getting better controlled. Hopefully discharge later today Please SecureChat the [facility] Audit Machine Operator ONC Resident pager for questions or concerns RESEARCH ANIMAL FACILITY SUPERVISOR-ONC Progress Note Date: 12/20/2022 Time: 6:23 AM Corey Brigette Perla 32 y.o. female , POD # 3 s/p AMINA-BS, R SNLS, L pelvic LNS Patient seen and examined. She complained of continued pain along incision but has overall improved but still requiring IV pain meds. Pain is somewhat controlled. Patient is tolerating oral intake. She is urinating. She denies any vaginal bleeding. She is ambulating without difficulty. She is passing flatus. She denies Fever/Chills, Chest Pain, SOB, N/V. Vitals: Vitals: 12/19/22201212/20/22 0028 12/20/22 0108 12/20/22 0445 BP: 119/70 124/68 119/66 122/57 BP Location: Left arm Left arm Left arm Left arm Patient Position: Lying Lying Lying Lying Pulse: 64 70 61 60 Resp: 16 16 16 16 Temp: 37 ?C (98.6 ?F) 36.8 ?C (98.3 ?F) 36.9 ?C (98.5 ?F) 37.2 ?C (98.9 ?F) TempSrc: Temporal Temporal Temporal Temporal SpO2: 96% 95% 95% 93% Weight: Height: Intake/Output: Current Shift: No intake/output data recorded. Physical Exam: Gen: NAD, alert and cooperative HEENT: Normocephalic, atraumatic Abd: soft, NT/ND, no rebound, no guarding. present BS Incisions: pfannenstiel incision C/D/I Ext: No LE edema, no calf tenderness or swelling Medications: Current Facility-Administered Medications: acetaminophen (Tylenol) tablet 650 mg, 650 mg, Oral, Q4H, DAIJA Mcclure CNP, 650 mg at 12/20/22 0450 enoxaparin (Lovenox) syringe 40 mg, 40 mg, SubCUTAneous, Daily, Noble Wilburn DO, 40 mg at 12/19/22 0932 gabapentin (Neurontin) capsule 300 mg, 300 mg, Oral, Nightly, DAIJA Mcclure CNP, 300 mg at 12/19/22 2227 HYDROmorphone (Dilaudid) injection 0.25 mg, 0.25 mg, IntraVENous, q4h PRN OR HYDROmorphone (Dilaudid) injection 0.5 mg, 0.5 mg, IntraVENous, q4h PRN, DAIJA Mcclure CNP, 0.5 mg at 12/20/22 0301 HYDROmorphone (Dilaudid) tablet 2 mg, 2 mg, Oral, q4h PRN OR HYDROmorphone (Dilaudid) tablet 4 mg, 4 mg, Oral, q4h PRN, Alena Love APRN - INTERVENTIONAL TECHNOLOGIST, 4 mg at 12/20/22 0450 ibuprofen tablet 800 mg, 800 mg, Oral, q8h, Anjelica Cobb MD, 800 mg at 12/19/22 0931 ketamine (Ketalar) 10 mg/mL oral liquid 10 mg, 10 mg, Oral, q6h, Alena Love APRN - INTERVENTIONAL TECHNOLOGIST, 10 mg at 12/19/22 1138 magnesium hydroxide (Milk of Magnesia) 400 MG/5ML suspension 30 mL, 30 mL, Oral, Daily PRN, Noble M Akila, DO methocarbamol (Robaxin) tablet 1,000 mg, 1,000 mg, Oral, q8h PRN, Alena Love APRN - INTERVENTIONAL TECHNOLOGIST, 1,000 mg at 12/19/22 1138 ondansetron ODT (Zofran-ODT) disintegrating tablet 4 mg, 4 mg, Oral, q8h PRN, 4 mg at 12/19/22 2228 OR ondansetron (Zofran) injection 4 mg, 4 mg, IntraVENous, q6h PRN, Noble Melo Akila, DO, 4 mg at 12/19/22 1613 senna-docusate sodium (Senokot-S) 8.6-50 MG tablet 2 tablet, 2 tablet, Oral, BID, Noble M Akila, DO, 2 tablet at 12/19/22 2228 simethicone (Mylicon) chewable tablet 80 mg, 80 mg, Oral, 4x daily PRN, Alena Love APRN - INTERVENTIONAL TECHNOLOGIST sodium chloride 0.9 % infusion, 5-250 mL/hr, IntraVENous, PRN, Noble M Akila, DO, Last Rate: 10 mL/hr at 12/17/22 1803, 10 mL/hr at 12/17/22 1803 sodium chloride 0.9% (NS) flush 10 mL, 10 mL, IntraVENous, 2 times per day, Noble M Akila, DO, 10 mL at 12/19/22 2100 sodium chloride 0.9% (NS) flush 10 mL, 10 mL, IntraVENous, PRN, Noble M Akila, DO Diagnostics: No results found. Labs: Admission on 12/17/2022 Component Date Value Ref Range Status Preg Test, Ur 12/17/2022 Negative Negative Final POSITIVE QC 12/17/2022 Pass Final NEGATIVE QC 12/17/2022 Pass Final HCG LOT NUMBER 12/17/2022 [id number] Final Auto WBC 12/17/2022 10.0 3.6 - 10.7 10*3/uL Final RBC 12/17/2022 4.54 3.8 - 5.20 10*6/uL Final Hemoglobin 12/17/2022 14.7 11.7 - 16.0 g/dL Final Hematocrit 12/17/2022 43.6 35.0 - 47.0 % Final MCV 12/17/2022 96.0 80.0 - 98.0 fL Final MCH 12/17/2022 32.5 26.0 - 34.0 pg Final MCHC 12/17/2022 33.8 32.0 - 36.0 % Final RDW 12/17/2022 13.6 11.5 - 14.5 % Final Platelets 12/17/2022 429 140 - 440 10*3/uL Final MPV 12/17/2022 7.1 (L) 7.4 - 12.4 fL Final ABO Grouping 12/17/2022 O Final Antibody Screen 12/17/2022 NEG Final Rh Type 12/17/2022 NEG Final ABO Grouping 12/17/2022 O Final Rh Type 12/17/2022 NEG Final Auto WBC 12/18/2022 19.4 (H) 3.6 - 10.7 10*3/uL Final RBC 12/18/2022 3.67 (L) 3.8 - 5.20 10*6/uL Final Hemoglobin 12/18/2022 11.6 (L) 11.7 - 16.0 g/dL Final Hematocrit 12/18/2022 34.4 (L) 35.0 - 47.0 % Final MCV 12/18/2022 93.6 80.0 - 98.0 fL Final MCH 12/18/2022 31.6 26.0 - 34.0 pg Final MCHC 12/18/2022 33.7 32.0 - 36.0 % Final RDW 12/18/2022 13.6 11.5 - 14.5 % Final Plate (more content not included)... Normal [facility] CARECOORDon 12-19-2022 CARECOORD Care Managment Initial Assessment Date: 12/19/2022 Patient Name: Corey Perla : 1990 Patient Information Source of Information: Patient Cognition/Language: WFL - Within Functional Limits Permission given to speak with patient claims service representative/svetlanai mazin as indicated: Confirmation of Payer with patient/family: Yes Payer Name: [place] Medicaid [place]: No Confirmation of Primary Care Physician: No PCP (Denies having PCP) Primary Caregiver: Self If assistance needed, confirmed caregiver ready, willing and able to care for patient at discharge: Confirmed with: Living Arrangements Current Residence: House Number of Floors 2 Number of Entry Steps: 3 Bed/Bath Levels: Both first floor Facility: Facility Name: Plan to Return: Lives with: Parent Support Systems: Parent Activities of Daily Living Ambulation: Independent Bathing/Dressing: Independent Elimination/Continenc e/Toileting: Independent Feeding: Independent Who Assists with Activities of Daily Living: Instrumental Activities of Daily Living Prescription Coverage: Yes Pharmacy Used: [facility] Medication Management: Independent Transportation/Shoppi ng: Independent Transportation Mode: Car Needs Assistance with Transportation at Discharge: No Meal Preparation: Independent Laundry/Cleaning: Independent Finances/Bill Paying: Independent Communication: Independent Types of Care Services/Equipment Utilized Care Services: Dialysis Type: NA Durable Medical Equipment: Other (Comment) (none) Patient's Goal/Discharge Plan Patient expects to be discharged to: Home Discharge Planning Actions: Continue to follow Patient's Choice Rights and [employer] and Collaborative Relationships Disclosed as Indicated for Post-Acute Care: Interdisciplinary Team Engagement: Social Work Referral for: Additional Information: Spoke with patient at bedside. PPE worn, introduced self and role. Discharge planning needs discussed. Patient denies any needs at this time. Discharge plan is home with mom. Mom will transport. TCC will continue to follow. AVEL SPANGLER, RN [facility] CAREPLNon 12-19-2022 CAREPLN The patient is Moderately Unstable - Medium risk of patient condition declining or worsening The patient's goals for the shift include pain control The clinical goals for the shift include increased ambulation Over the shift, the patient did not make progress toward the following goals. Barriers to progression include ongoing pain needs. Recommendations to address these barriers include continue to medicate for pain and offer ambulation assistance to the patient on a regular basis. Normal [facility] CAREPLN The patient is Moderately Stable - Low risk of patient condition declining or worsening The patient's goals for the shift include pain control The clinical goals for the shift include pain control Over the shift, the patient made some progress towards goals. Normal [facility] Consulton 12-19-2022 Consult Department of Psychiatry Attending Consult Note Reason for Consult: anxiety re: diagnosis, surgery Consulting Physician: Yvonne Taylor, Ph.D Total Time: 40 minutes IDENTIFYING DATA: The patient is a 32 y.o. female with malignant neoplasm of endocervix admitted on 12/17/2022 now statu post Radical AMINA-BS, R SNLS, L pelvic LNS. History Obtained From: patient, EMR HISTORY OF PRESENT ILLNESS: I wore a N95 mask for the entirety of this encounter. Per pt's request her mother and sister were present for most of the interview. Pt was alert, oriented, and participated. Pt reported pain is better controlled this afternoon; pt stated that she is hopeful to be able to go home tomorrow. Pt reported history of anxiety (including social anxiety); pt reported that she is glad that surgery is done; pt somewhat minimized any current distress. Pt denied any SI/HI. At this time, no manic, no psychotic symptoms. Past Psychiatric History: Pt denied any previous psychiatric admissions and no previous suicide attempts. Pt is currently not in counseling. Pt is currently not taking any psychotropic medications. Pt reported that she was briefly in counseling ([facility]), and that she feels doctor prescribed too many medications (pt recalls valium, Buspar - she stopped taking them quickly, did not like how she felt on them). Pt reported fear of crowds, that is when she would have panic attack on occasion; general worries present as well- I worry about everything and anything; pt currently denying depressive symptoms. No SI/HI. Drug and Alcohol History: Pt denied any alcohol and drug use history. Pt reported that she recently quit smoking, was smoking 1/2 pack cigarettes per day. To meet pt denied drug use, to pain service pt reported THC use to help with appetite. Social History: Pt lives with her partner and 3 children (from his previous relationship, but pt has been raising them for the last 10 years); pt stated that she will stay with her mom after discharge to get rest and get back on my feet. Pt reported good support from family and her partner. 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 Current Medications Current Facility-Administered Medications: acetaminophen (Tylenol) tablet 650 mg, 650 mg, Oral, Q4H, Alena Love APRN - DANN, 650 mg at 12/19/22 0353 enoxaparin (Lovenox) syringe 40 mg, 40 mg, SubCUTAneous, Daily, Noble Wilburn DO, 40 mg at 12/18/22826 gabapentin (Neurontin) capsule 300 mg, 300 mg, Oral, Nightly, Alena Love APRN - DANN, 300 mg at 12/18/222036 HYDROmorphone (Dilaudid) injection 0.25 mg, 0.25 mg, IntraVENous, q4h PRN OR HYDROmorphone (Dilaudid) injection 0.5 mg, 0.5 mg, IntraVENous, q4h PRN, Alena Love APRN - INTERVENTIONAL TECHNOLOGIST, 0.5 mg at 12/19/22 0552 HYDROmorphone (Dilaudid) tablet 2 mg, 2 mg, Oral, q4h PRN OR HYDROmorphone (Dilaudid) tablet 4 mg, 4 mg, Oral, q4h PRN, Alena Love APRN - INTERVENTIONAL TECHNOLOGIST, 4 mg at 12/19/22 0353 ibuprofen tablet 800 mg, 800 mg, Oral, q8h, Anjelica Cobb MD, 800 mg at 12/18/22 2345 ketamine (Ketalar) 10 mg/mL oral liquid 10 mg, 10 mg, Oral, q6h, Alena Love APRN - INTERVENTIONAL TECHNOLOGIST, 10 mg at 12/19/22 0509 magnesium hydroxide (Milk of Magnesia) 400 MG/5ML suspension 30 mL, 30 mL, Oral, Daily PRN, Noble Wilburn DO methocarbamol (Robaxin) tablet 1,000 mg, 1,000 mg, Oral, q8h PRN, Alena Love APRN - DANN, 1,000 mg at 12/19/22 050 ondansetron ODT (Zofran-ODT) disintegrating tablet 4 mg, 4 mg, Oral, q8h PRN, 4 mg at 12/18/221937 OR ondansetron (Zofran) injection 4 mg, 4 mg, IntraVENous, q6h PRN, Noble Wilburn, DO senna-docusate sodium (Senokot-S) 8.6-50 MG tablet 2 tablet, 2 tablet, Oral, BID, Noblelorenzo Wilburn, DO, 2 tablet at 12/18/222037 simethicone (Mylicon) chewable tablet 80 mg, 80 mg, Oral, PRN, Alena Love APRN - INTERVENTIONAL TECHNOLOGIST, 80 mg at 12/18/22 130 sodium chloride 0.9 % infusion, 5-250 mL/hr, IntraVENous, PRN, Noble Wilburn, DO, Last Rate: 10 mL/hr at 12/17/22 180, 10 mL/hr at 12/17/221802 sodium chloride 0.9% (NS) flush 10 mL, 10 mL, IntraVENous, 2 times per day, Noble M Akila, DO, 10 mL at 12/18/222037 sodium chloride 0.9% (NS) flush 10 mL, 10 mL, IntraVENous, PRN, Noble M Akila, DO MENTAL STATUS EXAM Mental Status Exam: Appearance: hospital gown Behavior: cooperative Activity normal Speech: spontaneous, normal rate Mood: euthymic , Affect: congruent with mood Associations: goal directed Thought content: general worries Thought process: logical, organized Orientation: oriented in all spheres Attention good Concentration good Insight: good Judgment: good Suicidal Intentions: no Suicidal Plan: no Impression : Generalized Anxiety Disorder Severity of stressors is moderate Source of stressors: health issues, financial stressors PLAN: Session focused on decreasing depressive and anxiety symptoms, and supportive intervention. No (more content not included)... Normal [facility] Progress Noteon 12-19-2022 Progress Note PAGING: The Acute Pain Service providers are available exclusively via [employer]. APS does not utilize pagers. Due to the current environment of [place] [address], PPE was worn for the duration of all face to face encounters including but not limited to an N95 in accordance with [facility] and hospital guidelines. 12/19/2022 Subjective: We have been asked to see this 32 y.o. female for postoperative pain management s/p Radical hysterectomy with bilateral salpingectomy, bilateral pelvic sentinel lymph node biopsy with ICG protocol. Lymphangiography for identification sentinel node, robotic lap pelvic lymphadenectomy with steven-aortic sampling on 12/17/22. Reviewed PET/CT 12/06/22 RAMIRO, no pages. On arrival, pt lying in bed. Pt appears better than yesterday. Main complaint today is right shoulder pain. Pt has not really been ambulating. Did take one dose simethicone yesterday with some relief. Encouraged pt up to chair today, walking, will get dose of simethicone now. Pt states she feels that po dilaudid works better than oxycodone. Incisional pain more controlled today. Room is very dark, pt is anxious, tearful re: medical conditions. Will consult psych today. Pt feels that ketamine helped, no reported side effects. Discussed with Kat RN: pt reported better pain control with new regimen. Simethicone provided gas relief and pain to shoulder. Tolerating diet, denies n/v. Patient educated on pain regimen, aware that po dilaudid, IV dilaudid, methocarbamol are PRN and patient must ask for these medications when needed. Educated patient to utilize oral pain medications as first line and reserve IV pain medications for severe breakthrough pain. Pt is realistic about pain control: Not all pain will be taken away, but pain should be tolerable/manageable with current regimen. Pt instructed to have staff page APS if pain becomes uncontrolled when utilizing present regimen. Pt agreeable, denies further questions. PMH reviewed below Sedation score: 1: Awake and alert Pain Severity: moderate Pain Location: Abdomen-incisional: improved. Right shoulder pain Pain Quality: aching Aggravating Factors: Moving Alleviating Factors: Rest/Pain medications Social History Tobacco Use Smoking Status Every Day Packs/day: 0.50 Years: 15.00 Pack years: 7.50 Types: Cigarettes Smokeless Tobacco Not on file Social History Substance and Sexual Activity Alcohol Use Never Social History Substance and Sexual Activity Drug Use Never Pain Management: n/a The patient's medical history and physical assessment, medications, allergies, patient's current medical condition, imaging, and labs were reviewed as part of this consultation. [x] Patient's Medications have been reviewed. [x] Patient's OARRS report (PDMP) have been reviewed. Filled Written Drug QTY Days 12/04/2022 12/04/2022 Oxycodone-Acetaminoph en 5-325 20.00 5 11/15/2022 11/15/2022 Hydrocodone-Acetamin 5-325 Mg 4.00 1 2022 2022 Tramadol Hcl 50 Mg Tablet 12.00 3 09/03/2022 09/03/2022 Diazepam 10 Mg Tablet 45.00 15 11/18/2021 11/18/2021 Oxycodone Hcl (Ir) 10 Mg Tab Objective Findings: Height: 162.6 cm (5' 4.02) Weight: 57.2 kg (126 lb 1.7 oz) BMI (Calculated): 21.63 Vital signs: Blood pressure 118/66, pulse 61, temperature 37.1 ?C (98.7 ?F), temperature source Temporal, resp. rate 16, height 1.626 m (5' 4.02), weight 57.2 kg (126 lb 1.7 oz), SpO2 92 %. Allergies: Patient has no known allergies. 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 Cardiovascular: Negative for chest pain. Gastrointestinal: Positive for abdominal pain. Negative for nausea and vomiting. Musculoskeletal: Positive for arthralgias (right shoulder pain). Skin: Positive for wound (surgical). Psychiatric/Behaviora l: Negative for confusion. Physical Exam Vitals and nursing note reviewed. Constitutional: General: She is not in acute distress. Cardiovascular: Rate and Rhythm: Normal rate. Pulmonary: Effort: Pulmonary effort is normal. Abdominal: Tenderness: There is abdominal tenderness. Skin: General: Skin is warm and dry. Neurological: Mental Status: She is alert and oriented to person, place, and time. Psychiatric: Mood and Affect: Mood normal. Behavior: Behavior normal. Pain Management Adjuvants: 0700 --> 0700 12/17/2022 2/8 Scheduled APAP 3 (more content not included)... Normal [facility] Progress Note Nutrition rescreen completed. Chart reviewed. Patient to be monitored and followed by the diet performing arts technicians. Normal [facility] Progress Note - Attestation signed by Fernando De La Rosa MD at 12/19/2022 11:02 AM Patient rounded with residents today. She is doing better. Incision is clean and dry. Did pass her voiding trial. Discussed keeping her bladder empty. We will continue postoperative care RESEARCH ANIMAL FACILITY SUPERVISOR-ONC Progress Note Date: 12/19/2022 Time: 6:14 AM Corey Brigette Perla 32 y.o. female , POD # 2 s/p AMINA-BS, R SNLS, L pelvic LNS Please SecureChat the [facility] Audit Machine Operator ONC Resident pager for questions or concerns Patient seen and examined. She complained of continued pain along incision. Attempted to ambulate some yesterday but cause increase in pain and was unable to. Pain is somewhat controlled. Patient is tolerating oral intake. Eddy remains in will do voiding trial today. She denies any vaginal bleeding. She is not passing flatus. She denies Fever/Chills, Chest Pain, SOB, N/V. Vitals: Vitals: 12/18/22 1329 12/18/22 2035 12/19/22 0051 12/19/22 0549 BP: 114/61 (!) 139/94 104/61 118/66 BP Location: Right arm Left arm Left arm Left arm Patient Position: Lying Lying Lying Lying Pulse: 66 78 57 61 Resp: 16 16 Temp: 37 ?C (98.6 ?F) 36.9 ?C (98.5 ?F) 37 ?C (98.6 ?F) 37.1 ?C (98.7 ?F) TempSrc: Temporal Temporal Temporal Temporal SpO2: 98% 98% 94% 92% Weight: Height: Intake/Output: Current Shift: I/O this shift: In: - Out: 750 [Urine:750] Physical Exam: Gen: NAD, alert and cooperative HEENT: Normocephalic, atraumatic, EOMI, MMM Resp: CTABL, no WRR Card: RRR, no murmur Abd: soft, NT/ND, no rebound, no guarding. present BS Incisions: pfannenstiel appears C/D/I Ext: No LE edema, no calf tenderness or swelling Medications: Current Facility-Administered Medications: acetaminophen (Tylenol) tablet 650 mg, 650 mg, Oral, Q4H, DAIJA Mcclure CNP, 650 mg at 12/19/22 035 enoxaparin (Lovenox) syringe 40 mg, 40 mg, SubCUTAneous, Daily, Noble Wilburn DO, 40 mg at 12/18/22 08 gabapentin (Neurontin) capsule 300 mg, 300 mg, Oral, Nightly, Alena Love APRN - DANN, 300 mg at 12/18/222036 HYDROmorphone (Dilaudid) injection 0.25 mg, 0.25 mg, IntraVENous, q4h PRN OR HYDROmorphone (Dilaudid) injection 0.5 mg, 0.5 mg, IntraVENous, q4h PRN, Alena Love APRN - INTERVENTIONAL TECHNOLOGIST, 0.5 mg at 12/19/22 0552 HYDROmorphone (Dilaudid) tablet 2 mg, 2 mg, Oral, q4h PRN OR HYDROmorphone (Dilaudid) tablet 4 mg, 4 mg, Oral, q4h PRN, Alena Love APRN - INTERVENTIONAL TECHNOLOGIST, 4 mg at 12/19/22 0353 ibuprofen tablet 800 mg, 800 mg, Oral, q8h, Anjelica Cobb MD, 800 mg at 12/18/22 2345 ketamine (Ketalar) 10 mg/mL oral liquid 10 mg, 10 mg, Oral, q6h, Alena Love APRN - DANN, 10 mg at 12/19/22 0509 magnesium hydroxide (Milk of Magnesia) 400 MG/5ML suspension 30 mL, 30 mL, Oral, Daily PRN, Noble Wilburn, DO methocarbamol (Robaxin) tablet 1,000 mg, 1,000 mg, Oral, q8h PRN, DAIJA Mcclure CNP, 1,000 mg at 12/19/22 0509 ondansetron ODT (Zofran-ODT) disintegrating tablet 4 mg, 4 mg, Oral, q8h PRN, 4 mg at 12/18/22 193 OR ondansetron (Zofran) injection 4 mg, 4 mg, IntraVENous, q6h PRN, Noble Wilburn, DO senna-docusate sodium (Senokot-S) 8.6-50 MG tablet 2 tablet, 2 tablet, Oral, BID, Noble Wilburn, DO, 2 tablet at 12/18/222037 simethicone (Mylicon) chewable tablet 80 mg, 80 mg, Oral, PRN, DAIJA Mcclure CNP, 80 mg at 12/18/22 1305 sodium chloride 0.9 % infusion, 5-250 mL/hr, IntraVENous, PRN, Noble Wilburn, DO, Last Rate: 10 mL/hr at 12/17/22 180, 10 mL/hr at 12/17/221802 sodium chloride 0.9% (NS) flush 10 mL, 10 mL, IntraVENous, 2 times per day, Noble Wilburn, DO, 10 mL at 12/18/222037 sodium chloride 0.9% (NS) flush 10 mL, 10 mL, IntraVENous, PRN, Noble Wilburn, DO Diagnostics: No results found. Labs: Admission on 12/17/2022 Component Date Value Ref Range Status Preg Test, Ur 12/17/2022 Negative Negative Final POSITIVE QC 12/17/2022 Pass Final NEGATIVE QC 12/17/2022 Pass Final HCG LOT NUMBER 12/17/2022 [id number] Final Auto WBC 12/17/2022 10.0 3.6 - 10.7 10*3/uL Final RBC 12/17/2022 4.54 3.8 - 5.20 10*6/uL Final Hemoglobin 12/17/2022 14.7 11.7 - 16.0 g/dL Final Hematocrit 12/17/2022 43.6 35.0 - 47.0 % Final MCV 12/17/2022 96.0 80.0 - 98.0 fL Final MCH 12/17/2022 32.5 26.0 - 34.0 pg Final MCHC 12/17/2022 33.8 32.0 - 36.0 % Final RDW 12/17/2022 13.6 11.5 - 14.5 % Final Platelets 12/17/2022 429 140 - 440 10*3/uL Final MPV 12/17/2022 7.1 (L) 7.4 - 12.4 fL Final ABO Grouping 12/17/2022 O Final Antibody Screen 12/17/2022 NEG Final Rh Type 12/17/2022 NEG Final ABO Grouping 12/17/2022 O Final Rh Type 12/17/2022 NEG Final Auto WBC 12/18/2022 19.4 (H) 3.6 - 10.7 10*3/uL Final RBC 12/18/2022 3.67 (L) 3.8 - 5.20 10*6/uL Final Hemoglobin 12/18/2022 11.6 (L) 11.7 - 16.0 g/dL Final Hematocrit 12/18/2022 34.4 (L) 35.0 - 47.0 % Final MCV 12/18/2022 9 (more content not included)... Normal [facility] CAREPLNon 12-18-2022 CAREPLN The patient is Moderately Stable - Low risk of patient condition declining or worsening The patient's goals for the shift include pain control The clinical goals for the shift include pain control Over the shift, the patient did not make progress toward the following goals. Barriers to progression include increased pain needs. Recommendations to address these barriers include following pain management recommendation and regular medication administration. [facility] Consulton 12-18-2022 Consult PAGING: The Acute Pain Service providers are available exclusively via [employer]. [facility] does not utilize pagers. Due to the current environment of Covid-19, PPE was worn for the duration of all face to face encounters including but not limited to an N95 in accordance with CDC and hospital guidelines. 12/18/2022 Subjective: We have been asked to see this 32 y.o. female for postoperative pain management s/p Radical hysterectomy with bilateral salpingectomy, bilateral pelvic sentinel lymph node biopsy with ICG protocol. Lymphangiography for identification sentinel node, robotic lap pelvic lymphadenectomy with steven-aortic sampling on 12/17/22. Reviewed PET/CT 12/06/22 RAMIRO, evelyn pages. On arrival, pt lying in bed. Pt appears uncomfortable, tearful. Pt lips quivering from pain during encounter. Pt has TAP block in OR yesterday. Pt has no numbness to TAP area. Pt emotional during encounter, support provided. Pt very tearful but admits to marijuana use daily for appetite stimulant. Discussed that marijuana can make post op pain difficult to manage and changes will be made to regimen accordingly. Pt states that oxycodone provides no relief of her pain. Pt had percocet in the past with wisdom teeth extraction and it did not alleviate her pain then either. Will transition to PO dilaudid. IV dilaudid working for patient, lasting about one hour. Discussed addition of ketamine to regimen. Tolerating diet, denies n/v. Patient educated on pain regimen, aware that po dilaudid, IV dilaudid, methocarbamol are PRN and patient must ask for these medications when needed. Educated patient to utilize oral pain medications as first line and reserve IV pain medications for severe breakthrough pain. Pt is realistic about pain control: Not all pain will be taken away, but pain should be tolerable/manageable with current regimen. Pt instructed to have staff page APS if pain becomes uncontrolled when utilizing present regimen. Pt agreeable, denies further questions. PMH reviewed below Sedation score: 1: Awake and alert Pain Severity: severe Pain Location: Abdomen-incisional Pain Quality: aching Aggravating Factors: Moving Alleviating Factors: Rest/Pain medications Social History Tobacco Use Smoking Status Every Day Packs/day: 0.50 Years: 15.00 Pack years: 7.50 Types: Cigarettes Smokeless Tobacco Not on file Social History Substance and Sexual Activity Alcohol Use Never Social History Substance and Sexual Activity Drug Use Never Pain Management: n/a The patient's medical history and physical assessment, medications, allergies, patient's current medical condition, imaging, and labs were reviewed as part of this consultation. [x] Patient's Medications have been reviewed. [x] Patient's OARRS report (PDMP) have been reviewed. Filled Written Drug QTY Days 12/04/2022 12/04/2022 Oxycodone-Acetaminoph en 5-325 20.00 5 11/15/2022 11/15/2022 Hydrocodone-Acetamin 5-325 Mg 4.00 1 2022 2022 Tramadol Hcl 50 Mg Tablet 12.00 3 09/03/2022 09/03/2022 Diazepam 10 Mg Tablet 45.00 15 11/18/2021 11/18/2021 Oxycodone Hcl (Ir) 10 Mg Tab Objective Findings: Height: 162.6 cm (5' 4.02) Weight: 57.2 kg (126 lb 1.7 oz) BMI (Calculated): 21.63 Vital signs: Blood pressure 109/60, pulse 62, temperature 36.8 ?C (98.2 ?F), temperature source Temporal, resp. rate 18, height 1.626 m (5' 4.02), weight 57.2 kg (126 lb 1.7 oz), SpO2 100 %. Allergies: Patient has no known allergies. 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 HENT: Negative for trouble swallowing. Eyes: Negative for visual disturbance. Respiratory: Negative for shortness of breath. Cardiovascular: Negative for chest pain. Gastrointestinal: Positive for abdominal pain. Negative for nausea and vomiting. Musculoskeletal: Negative for arthralgias. Skin: Positive for wound (surgical). Neurological: Negative for dizziness and headaches. Psychiatric/Behaviora l: Negative for confusion. The patient is not nervous/anxious. Physical Exam Vitals and nursing note reviewed. Constitutional: Appearance: Normal appearance. HENT: Head: Normocephalic and atraumatic. Eyes: General: Vision grossly intact. Cardiovascular: Rate and Rhythm: Normal rate. Pulmonary: Effort: Pulmonary effort is normal. Abdominal: Palpations: Abdomen is soft. (more content not included)... Normal [facility] Progress Noteon 12-18-2022 Progress Note - Attestation signed by Fernando De La Rosa MD at 12/18/2022 8:28 AM Patient rounded with residents. Doing well. Having significant incisional pain however the incision is dry and flat. We will continue postoperative care Please SecureChat the [facility] Audit Machine Operator ONC Resident pager for questions or concerns RESEARCH ANIMAL FACILITY SUPERVISOR-ONC Progress Note Date: 12/18/2022 Time: 6:14 AM Corey Riojasariela 32 y.o. female , POD # 1 s/p AMINA-BS, R SNLS, L pelvic LNS Patient seen and examined. She complained of pain and burning along incision. Pain is somewhat controlled. Patient is tolerating oral intake. Eddy remains in place. She denies any vaginal bleeding. She is not passing flatus. She denies Fever/Chills, Chest Pain, SOB, N/V. Vitals: Vitals: 12/17/22 1415 12/17/22 1427 12/17/22 1632 12/17/222058 BP: 122/63 124/60 116/87 BP Location: Left arm Patient Position: Lying Pulse: 54 55 79 Resp: 17 16 18 Temp: 36.6 ?C (97.9 ?F) 36.7 ?C (98.1 ?F) TempSrc: Temporal Temporal SpO2: 93% 95% 97% Weight: 57.2 kg (126 lb 1.7 oz) Height: 1.626 m (5' 4.02) Intake/Output: Current Shift: I/O this shift: In: 317.3 [I.V.:115.8; IV Piggyback:201.5] Out: - Physical Exam: Gen: NAD, alert and cooperative HEENT: Normocephalic, atraumatic Abd: soft, NT/ND, no rebound, no guarding. present BS Incisions: pfannenstiel incision covered with dressing C/D/I Ext: No LE edema, no calf tenderness or swelling Medications: Current Facility-Administered Medications: acetaminophen (Tylenol) tablet 1,000 mg, 1,000 mg, Oral, q8h, Noble M Akila, DO, 1,000 mg at 12/18/22 0000 HYDROmorphone (Dilaudid) injection 0.25 mg, 0.25 mg, IntraVENous, q3h PRN OR HYDROmorphone (Dilaudid) injection 0.5 mg, 0.5 mg, IntraVENous, q3h PRN, Noble M Akila, DO, 0.5 mg at 12/18/22 0538 ibuprofen tablet 800 mg, 800 mg, Oral, q8h, Anjelica Cobb MD ketorolac (Toradol) injection 30 mg, 30 mg, IntraVENous, q6h, Noble M Akila, DO, 30 mg at 12/17/22 2226 ondansetron ODT (Zofran-ODT) disintegrating tablet 4 mg, 4 mg, Oral, q8h PRN OR ondansetron (Zofran) injection 4 mg, 4 mg, IntraVENous, q6h PRN, Noble M Akila, DO oxyCODONE (Roxicodone) immediate release tablet 5 mg, 5 mg, Oral, q4h PRN OR oxyCODONE (Roxicodone) immediate release tablet 10 mg, 10 mg, Oral, q4h PRN, Noble M Akila, DO, 10 mg at 12/18/22 0230 polyethylene glycol (PEG) 3350 (Miralax) packet 17 g, 17 g, Oral, Daily PRN, Noble M Akila, DO sodium chloride 0.9 % infusion, 5-250 mL/hr, IntraVENous, PRN, Noble M Akila, DO, Last Rate: 10 mL/hr at 12/17/221802, 10 mL/hr at 12/17/221802 sodium chloride 0.9% (NS) flush 10 mL, 10 mL, IntraVENous, 2 times per day, Noble M Akila, DO, 10 mL at 12/17/221943 sodium chloride 0.9% (NS) flush 10 mL, 10 mL, IntraVENous, PRN, Noble M Akila, DO Diagnostics: No results found. Labs: Admission on 12/17/2022 Component Date Value Ref Range Status Preg Test, Ur 12/17/2022 Negative Negative Final POSITIVE QC 12/17/2022 Pass Final NEGATIVE QC 12/17/2022 Pass Final HCG LOT NUMBER 12/17/2022 [id number] Final Auto WBC 12/17/2022 10.0 3.6 - 10.7 10*3/uL Final RBC 12/17/2022 4.54 3.8 - 5.20 10*6/uL Final Hemoglobin 12/17/2022 14.7 11.7 - 16.0 g/dL Final Hematocrit 12/17/2022 43.6 35.0 - 47.0 % Final MCV 12/17/2022 96.0 80.0 - 98.0 fL Final MCH 12/17/2022 32.5 26.0 - 34.0 pg Final MCHC 12/17/2022 33.8 32.0 - 36.0 % Final RDW 12/17/2022 13.6 11.5 - 14.5 % Final Platelets 12/17/2022 429 140 - 440 10*3/uL Final MPV 12/17/2022 7.1 (L) 7.4 - 12.4 fL Final ABO Grouping 12/17/2022 O Final Antibody Screen 12/17/2022 NEG Final Rh Type 12/17/2022 NEG Final ABO Grouping 12/17/2022 O Final Rh Type 12/17/2022 NEG Final Auto WBC 12/18/2022 19.4 (H) 3.6 - 10.7 10*3/uL Final RBC 12/18/2022 3.67 (L) 3.8 - 5.20 10*6/uL Final Hemoglobin 12/18/2022 11.6 (L) 11.7 - 16.0 g/dL Final Hematocrit 12/18/2022 34.4 (L) 35.0 - 47.0 % Final MCV 12/18/2022 93.6 80.0 - 98.0 fL Final MCH 12/18/2022 31.6 26.0 - 34.0 pg Final MCHC 12/18/2022 33.7 32.0 - 36.0 % Final RDW 12/18/2022 13.6 11.5 - 14.5 % Final Platelets 12/18/2022 438 140 - 440 10*3/uL Final MPV 12/18/2022 7.4 7.4 - 12.4 fL Final ] Assessment/Plan: Corey Perla 32 y.o. female , POD #1 s/p AMINA-BS, R SNLS, L pelvic LNS - Doing well, vitals stable - eddy catheter to remain in place until POD2 and will do voiding trial prior to removal - Encourage ambulation and use of incentive spirometer - Pain controlled: will continue to support pain needs - Labs/Imaging:Hgb Stable - DVT Proph:SCDs while in bed, will discuss lovenox with attending - Abx: ancef - Diet:General - ADAT - IVF: hep lock - Disposition: CCM Please SecureChat the [facility] Audit Machine Operator ONC Resident pager for questions or concerns Principal Problem: Malignant neoplasm of (more content not included)... Normal [facility] Nursing Noteon 12-17-2022 Nursing Note Report called to Betty RM, no questions asked. Family at bedside patient in for transport Normal [facility] Nursing Note Family at bedside waiting for bed to be assigned Normal [facility] Nursing Note Family has been updated through the [facility] of patients condition. Patient will be in a bed delay due to room availability at this time. Patient advised when she is moved to another bed space in the PACU, her mother may come back to visit. Patient has been eating crackers and drinking soda. 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 2) bilateral oophoropexy Surgeon Rj Anesthesia General Description of operation; the patient identified brought to the operating room and after ministration of general anesthetic was placed into the lithotomy position where she underwent injection of radionucleotide dye in the cervix at 3 9:00. She then underwent abdominal perineal vaginal prep and drape exam under anesthesia revealed a stage I B2 lesion based upon imaging studies. Timeout was performed antibiotics were given and a Pfannenstiel incision made using a scalpel, Bovie cautery was used to coagulate and divide subcutaneous tissue as well as open up the fascia. The fascia was dissected off the underlying rectus abdominis muscles and the peritoneal cavity was opened using Metzenbaum scissors. Intra-abdominal expiration was normal the Ever wound retractor was placed followed by the O'Colin-O'Harvey wound retractor being careful to make sure there was no impingement upon the femoral nerves. The right left pelvic sidewalls were opened through the round ligaments the pararectal and paravesical spaces were made, no evidence of parametrial disease was found. No suspicious adenopathy was found. Using the neoprobe a radioactive and hot lymph node, these were detected on the right pelvic sidewall at the junction only internal and external iliac artery and vein were dissected out using monopolar and bipolar cautery. However on the left side no sentinel lymph node could be detected. This then allowed the mesosalpinges to be coagulated and divided as was the proximal ovarian ligaments and the ovaries were divided from the uterus.The bladder fat was dissected inferiorly. The right ureter was dissectedoff the right medial leaf of the broad ligament, the uterine artery andvein on the right side was skeletonized as it exited from the superior vesicle artery and vein, was coagulated and divided using LigaSure. Using fine right angles and small burst of Bovie cautery the ureter was dissected out the parametrial tunnel. A similar dissection then ensued on the left side. The rectovaginal space was then opened and the rectum was dissected inferiorly. The uterosacral ligaments were clamped cut and tied using curved Trupti's and 0 Vicryl transfixion sutures. The parametrial tissue was coagulated divided using the Enseal device the vaginal cuff some crossclamped with curved Zeppelin sharply divided the radical hysterectomy specimen handed off the field this up was replaced with 0 Vicryl transfixion sutures and the cuff was closed using a running 0 Vicryl [id number]. Another attempt at identifying a left pelvic lymph node was unsuccessful. Therefore left pelvic lymph node dissection was then performed removing lymph node bearing tissue overlying the right distal common, external and internal iliac artery and vein as well as the obturator space. The obturator nerve was identified and preserved. The ovaries were then diced dissected out further on the broad ligament, pexied to the right and left gutters respectively using interrupted sutures of 0 Vicryl. All sponges needles and instruments ports correct to the surgeon x2 the fascia is then closed using running looped PDS in a looped fashion followed by subcuticular 3-0 Monocryl in the skin followed by Steri-Strips. Blood loss was about 150 cc and she was taken to the cover room in stable condition. [facility] Op Note Date: 12/17/2022 Location: [facility] OR Name: Corey Perla, : 1990, Diagnosis Pre-op Diagnosis * Malignant neoplasm of endocervix (HCC) [C53.0] Post-op Diagnosis * Malignant neoplasm of endocervix (HCC) [C53.0] Procedures RADICAL HYSTERECTOMY WITH BILATERAL SALPINGECTOMY, BILATERAL PELVIC SENTINEL LYMPH NODE BIOPSY WITH ICG PROTOCOL 94419 - CO RAD ABDL HYSTERECTOMY W/BI PELVIC LMPHADENECTOMY LYMPHANGIOGRAPHY FOR IDENTIFICATION SENTINEL NODE 59857 - CO INJ RADIOACTIVE TRACER FOR ID OF SENTINEL NODE ROBOTIC (XI) LAPAROSCOPY PELVIC LYMPHADENECTOMY WITH STEVEN-AORTIC SAMPLING 55618 - CO LAPS BI TOT PEL LMPHADEC & LINDA-AORTIC LYMPH BX 1 Surgeons * Fernando De La Rosa - Primary Procedure Summary Anesthesia: General ASA: II Estimated Blood Loss: 75 mL Drains: Urethral Catheter 16 Fr. (Active) Specimens ID Source Type Tests Collected By Collected At Frozen? Priority Lab ID 1 Lymph Node, Rudolph, All sites Lymph Node TISSUE EXAM Fernando De La Rosa MD 12/17/22 1034 No Routine Description: Right Pelvic Rudolph Node 2 Uterus Tissue TISSUE EXAM Fernando De La Rosa MD 12/17/22 1122 No Description: Radical Hysterectomy with Fallopian tubes 3 Lymph Node Lymph Node TISSUE EXAM Fernando De La Rosa MD 12/17/22 1131 No Routine Description: Left Pelvic Lymph Nodes Implants Staff: Dermatopathologist: Rukhsana Bronson RN Relief Dermatopathologist: Bailee Bailey RN Scrub Person: Ella Stein RN Findings: same Complications: None; patient tolerated the procedure well. Specimens Collected: Order Name Source Comment Collection Info Order Time CBC (HEMOGRAM) Blood, Venous Collected By: Anastasia Jackson RN 12/17/2022 8:56 AM BLOOD TYPE AND SCREEN GEL Blood, Venous HOLD. Specimen is valid for 3 days - nurse to verify valid specimen Collected By: Anastasia Jackson RN 12/17/2022 8:56 AM HCG QUALITATIVE URINE Urine, Clean Catch Discontinue this order if: 1. patient is older than 55 years old 2. has had a prior hysterectomy 3. today's surgery is for treatment of known or suspected ectopic or loss. 4. patient has a known intrauterine but this is a needed surgery. 12/17/2022 8:56 AM TISSUE EXAM Lymph Node, Rudolph, All sites Pre-op diagnosis: Malignant neoplasm of endocervix (HCC) [C53.0] Collected By: Fernando De La Rosa MD 12/17/2022 10:39 AM Wound Class: Class II: Clean-Contaminated Blood Products: None Prophylactic Antibiotics: Procedure appropriate prophylactic antibiotic(s) given within 1 hour of surgical incision (two hours if receiving Vancomycin or flouroquinolone) [facility] Nursing Noteon 12-11-2022 Nursing Note Charleen at Dr. De La Rosa's office notified that we are in need of the patient's Medicaid hysterectomy/steriliz ation form. Normal [facility] PREPROCINSon 12-11-2022 PREPROCINS No outpatient medications have been marked as taking for the 12/17/22 encounter (Hospital Encounter). Additional Instructions: COUNSELOR EDUCATION PROFESSOR AND PARKING IN THE MAIN DECK ARE FREE DAY OF SURGERY. PARKING IN THE DECK-- AFTER PARKING TAKE THE ELEVATOR TO LEVEL ONE AND TAKE THE BRIDGE TO THE HOSPITAL. GO TO THE RIGHT AND GO AROUND THE CORNER TO THE SAME DAY SURGERY DESK AND CHECK IN THERE. IF GOING IN THE MAIN ENTRANCE-- TURN LEFT AND GO DOWN THE PERES TO THE H ELEVATORS AND TAKE THEM TO ONE, LEFT OFF THE ELEVATOR AND GO AROUND TO THE SAME DAY DESK AND CHECK IN. Remember that you will be asked to provide a urine specimen upon arrival to Same Day Surgery. You may take your prescription pain medication. You may take Tylenol for pain. NO Motrin, ibuprofen or Advil for 24 hours prior to surgery or longer if instructed by your surgeon. NO Aleve or Naprosyn for 3 days prior to surgery or longer if instructed by your surgeon. IF YOU TAKE BLOOD THINNERS OR ASPIRIN: no aspirin for 5 days prior to surgery. Follow any instructions given to you by including the use of hibiclens wipes. Shower with an antibacterial soap such as Dial or Safeguard followed by use of hibiclens wipes provided to you by Dr. De La Rosa before coming to the hospital. No makeup, lotion, powder, deodorant or body spays. No hair products. Remove all jewelry and leave it at home. Wear loose comfortable clothing to go home in. You may brush your teeth morning of surgery. Do not wear contacts day of surgery. No marijuana (THC), smoking or alcohol for 24 hours prior to surgery. Please arrange for a responsible adult to drive you home after your surgery and that there is a responsible adult with you for 24 hours post discharge. If you have specific questions, please call your surgeon. You will receive a call the day before your surgery to verify your arrival time and date. You will be asked to arrive at least two hours prior to your scheduled surgery time. Please bring your [facility] Surgical folder and medication list with you day of surgery. We encourage you to write down any questions you may have for the surgeon, anesthesiologist, or other members of the surgical team and bring it with you the day of surgery. Please bring photo ID and insurance information. [facility] 12-10-2022 36 Patient notified by phone [facility] 12-09-2022 36 PET scan results discussed. No evidence of metastatic disease. Patient already scheduled for surgery 12/17/2022. Dagny - can you confirm PAT appt with the patient - I can't tell from [employer] if it is in person or over the phone. Thanks! Normal [facility] Office-Progress Notes-Pr vel 11-28-2022 [facility] Office-Progress Notes-Provider Assessment/Plan This Visit Diagnosis 1. Adenocarcinoma of cervix C53.9 plan radical hysterectomy Chief Complaint 2wk post op from D&C hysteroscopy 11/2021 Adenocarcimoma of cervix Adenocarcinoma Stage 1B1 Rj- radical hyst 11/2021. PET scan having in a week and surgery [facility] for early DEC History of Present Illness Reviewed path plan of care discussed radical hyst with Dr. De La Rosa and recovery radiation and recovery risk of dyspareunia and vaginal scarring discussed she is raising 3 daughters so ok with the loss of fertility surrogate discussed once recovered risk of recurrence reviewed so she will need close followup she is getting pet scan 12/06 and surgery 12/17 he felt a lymphnode on her Right side possible supportiva but if cancer then no surgery if positive then just chemo and radiation she is glad to have a plan and moving in a direction Physical Exam Vitals & Measurements BP: 100/60 HT: 162 cm WT: 61.3 kg BMI: 23.36 Depression Screening Scores Initial Depression Screen Score: 0 (11/28/22 10:25:00) Fall Risk Assessment Is the patient ambulatory (mobile): Yes (11/28/22 10:25:00) Have you had a fall within the past: No (11/28/22 10:25:00) Have you had 2 or more falls in the past: No (11/28/22 10:25:00) OB History History (0,0,0,0) No previous pregnancies history have been recorded Problem List/Past Medical History Ongoing Adenocarcinoma of cervix Cervical mass 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 Substance Abuse - Denies Substance Abuse Tobacco 10 or more cigarettes (1/2 pack or more)/day in last 30 days Tobacco Use:. Family History Breast cancer..: Grandmother. Cervical cancer..: Mother. Diabetes..: Mother. Normal [facility] Comprehensive Intake - Texto n 11-28-2022 Comprehensive Intake - Text Comprehensive Intake Entered On: 11/28/2022 10:29 EST Performed On: 11/28/2022 10:25 EST by Anne Marie Linn MA Summary Chief Complaint : 2wk post op from D&C hysteroscopy 11/2021 Adenocarcimoma of cervix Adenocarcinoma Stage 1B1 De La Rosa- radical hyst 11/2021. PET scan having in a week and surgery [facility] for early DEC Anne Marie Linn MA - 11/28/2022 10:30 EST Advance Directive : No Bladder Control Issues? : No Urine Leakage? : No Presence or absence of urinary incontinence assessed : Yes CPT-II Medication list doc'd in medical record : Yes Influenza immunization administered or previously received : No Pneumococcal vaccine administered or previously received : No Anne Marie Linn MA - 11/28/2022 10:25 EST Measurements Ht/Wt Measurement Refused by Patient? : No Weight Measured : 61.3 kg(Converted to: 135 lb 2 oz, 135.143 lb) Height/Length Measured : 162 cm(Converted to: 5 ft 4 in, 63.78 in) Body Mass Index Measured : 23.36 kg/m2 Body Mass Index documented : Yes Weight Measured - lbs : 135 lb(Converted to: 135 lb 0 oz, 61 kg) Height/Length Measured - in : 63.78 in(Converted to: 5 ft 4 in, 162 cm) Body Mass Index Measured Kosovan : 23.33 kg/m2 BSA Kosovan : 1.66 m2 Anne Marie Linn MA - 11/28/2022 10:25 EST Vitals Require BP : Yes Systolic Blood Pressure : 100 mmHg Diastolic Blood Pressure : 60 mmHg Mean Arterial Pressure : 73 mmHg Last Systolic BP : less than 130 mmHg Last Diastolic BP : less than 80 mmHg Pain Present : No actual or suspected pain Pain : 0 Pain severity quantified : No pain present Anne Marie Linn MA - 11/28/2022 10:25 EST Infection Screening - Ambulatory Exposure AND/OR close contact with a person under investigation or laboratory-confirmed COVID-19 individual within 14 days of symptom onset AND/OR any of the following: : No Do you live/work in a high risk situation (congregated living, hemodialysis, infusion clinic, jail, assisted living, retirement, homeless intermediate, etc.)? : No Anne Marie Linn MA - 11/28/2022 10:25 EST Depression Screening Is patient currently : None of the Below Feeling Down, Depressed, Hopeless : Not at all Little Interest - Pleasure in Activities : Not at all Initial Depression Screen Score : 0 Depression Screening Score 0 : No Anne Marie Linn MA - 11/28/2022 10:25 EST Falls Risk Assessment Is the patient ambulatory (mobile) : Yes Have you had 2 or more falls in the past year : No Have you had a fall within the past year that has caused an injury : No Patient screen for fall risk : no falls in last year OR 1 fall with no injury in last year Anne Marie Linn MA - 11/28/2022 10:25 EST Normal [facility] 36on 11-25-2022 36 PAT by phone 12.11.2022 at 9 am SX: 12.17.2022 AT 9:30 AM ARRIVAL AT 7:30 AM POST OP 12.30.2022 AT 2:30 PM Folder and instructions given. Normal [facility] 36 Patient returned call- notified date/time/location of PET CT scan. Address for [place] given [place] [address] I called [facility] to get in sooner for PET CT but there is not anything available Normal [facility] [address] scan schedule d on FridayDec 06 @ 4:00 pm @ [facility]. Attempted to call patient and her voice mail was not set up and I was unable to leave a message Normal [facility] Office Visiton 11-22-2022 Follow-up visit [id number] Corey Perla 1990 F Date Provider Department Center 11/22/2022 [id number] DE LA ROSA 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 None Family History Problem Relation Age of Onset Stroke Mother Multiple sclerosis Mother Diabetes Mother Cervical cancer Mother Breast cancer Maternal Grandmother Breast cancer Paternal Grandmother Colon cancer Neg Hx Ovarian cancer Neg Hx Family Status - Relation Status Age at Mother Alive Maternal Grandmother Paternal Grandmother Neg Hx Level of Service:24002 CO OFFICE/OUTPATIENT NEW MODERATE MDM 45-59 MINUTES Reason for Visit and Comments: Cervical Cancer [029458] [facility] Phone gon 11-21-2022 Phone Msg - From: Hilary Cali To: IDALMIS JIMENEZ; Sent: 11/21/2022 09:29:21 EST Subject: SISTER (ANSHUL) WITH QUESTION'S Actions: Message Caller Name: JOHNNY COREY; Caller Number: H PATIENTS SISTER (ANSHUL) WITH BE CALLING AROUND 12:15 WITH HER SISTER COREY TO DISCUSS SOME QUESTION REGARDING THE RESULTS THAT WERE GIVEN TODAY. THANK YOU, SB Called patient and discussed HIPPA and release of medical information I could not give out information to her sister when she called in. The patient understood and is aware that majority of questions will be answered tomorrow with Dr. De La Rosa. I prepped her for the probability of a hysterectomy. Normal [facility] Phone Msg - From: Adele Patton To: IDALMIS JIMENEZ; Sent: 11/21/2022 08:57:03 EST Subject: DR. WHITAKER Caller Name: COREY PERLA; Caller Number: H I called Dr. Whitaker's office, gave them all the information for the patient. I also faxed last office note, surgery op note, and pathology report. They will give her a call and get her schedued Normal [facility] Phone Msg - From: IDALMIS JIMENEZ To: Adele Patton; Sent: 11/21/2022 08:30:36 EST Caller Name: COREY PERLA; Caller Number: H Patient called Path reviewed cancer. She was appropriately tearful- Send to Dr. De La Rosa/Agus Olivas [facility] SURGICAL PATH REPORTon 11-20 SURGICAL PATH REPORT [facility] Department of Pathology [address] [place] [address] Name: COREY PERLA : 1990 Financial [id number] Number: Gender Female Locatio ASC : n: Admit 32 years Attending IDALMIS JIMENEZ Age: Provider: Ordering IDALMIS JIMENEZ Provider: Consulti Surgical Pathology Report ng: ACCESSION: COLLECTED DATE/TIME: RECEIVED DATE/TIME: PATHOLOGIST: [id number] 11/15/2022 14:55 EST 11/18/2022 08:18 EST VIDYA CHAMBERS, EDISON Final Diagnosis Report Type: C-1100 (A) ENDOMETRIAL CURETTINGS: - INVASIVE MUCINOUS ADENOCARCINOMA, ENDOCERVICAL TYPE . COMMENT: Immunostains were performed and the tumor shows the following profile: CK7: Positive CK20: Negative ERA: Weakly positive P16: Positive, strong and diffuse P53: Few cells positive P63: Negative PRA: Negative These results support the above diagnosis and are most consistent with an endocervical primary of the usual and mucinous type. The tumor shows a villo-glandular histologic pattern. (B) ENDOCERVICAL CURETTINGS: - INVASIVE MUCINOUS ADENOCARCINOMA, ENDOCERVICAL TYPE. EDISON DASILVA PATHOLOGIST (Electronic Signature) Date Verified 11/20/2022 AD Clinical Data PREOP DIAGNOSIS: HPV INFECTION POSTOP DIAGNOSIS: HPV INFECTION PROCEDURE: HYSTEROSCOPY D&C, CERVICAL LEEP OR COLD KNIFE CONE BIOPSY ____ Print 11/21/2022 09:06 EST Number: Date/Time: [facility] Department of Pathology [address] [place] [id number] [phone] Name: COREY PERLA : 1990 Financial [id number] Number: Gender Female Bernabe ASC : n: Admit 32 years Attending IDALMIS JIMENEZ Age: Provider: Ordering IDALMIS JIMENEZ Provider: Consulti Surgical Pathology Report ng: ACCESSION: COLLECTED DATE/TIME: RECEIVED DATE/TIME: PATHOLOGIST: [id number] 11/15/2022 14:55 EST 11/18/2022 08:18 EST EDISON DASILVA MD Clinical Data SPECIMEN: A ENDOMETRIAL CURETTINGS B ENDOCERVICAL CURETTINGS Gross Description (A) Labeled EMC. Received in formalin on a nonadherent Telfa pad are multiple irregular colon pink feathery segments of soft tissue intermixed with red hemorrhagic material. The specimen is filtered and has a filtrate aggregate dimension of 11.2 x 2.6 x 1.0 cm. The specimen is entirely submitted in five cassettes. (B) Labeled ECC. Received in formalin on a nonadherent Telfa pads are multiple irregular colon feathery segments of soft tissue. The specimen is filtered and has a filtrate aggregate dimension of 5.0 x 2.0 x 0.5 cm. The specimen is entirely submitted in two cassettes. MP:mele 11/18/2022 Microscopic Diagnosis NOTE: One or more of the reagents used to perform assays on this specimen MAY have contained components considered to be analyte specific reagents ( ASRs). ASRs have not been cleared or approved by the U.S. Food and Drug Administration. The performance characteristics of these assays have been determined by the Department of Pathology at [facility]. This assay was performed subsequent to the H and E examination. Appropriate positive and negative controls were examined with appropriate reactivity. Codes CPT CODE: 50088 X 2 + 10883 + 05363 X 6 ____ Print 11/21/2022 09:06 EST Number: Date/Time: [facility] Comment on above: Performed By: #### 1 [id number] #### [facility] [address] [place] [address] Advertising Director: Edison Dasilva MD Anesthesiaon 11-15-2022 Anesthesia Patient: LIVAN PERLA Age: 32 years Sex: Female : 1990 Associated Diagnoses: None Author: CODY ZAMBRANO MD Postoperative Information Time Seen: Date & Time 11/15/2022 16:15:00. Assessment Postanesthesia assessment Vitals: Vital Signs 11/15/2022 16:15 EST Heart Rate Monitored 60 bpm NORMAL Peripheral Pulse Rate 61 bpm NORMAL Respiratory Rate 10 br/min LOW Systolic Blood Pressure 146 mmHg HI Diastolic Blood Pressure 94 mmHg HI SpO2 98 % NORMAL Oxygen Therapy Room air . Mental status: at preoperative baseline. Respiratory function: normal oxygenation and ventilation. Respiratory support: none. Cardiovascular function: stable. Pain: controlled. Nausea status: absence of nausea and vomiting. Postoperative hydration status: euvolemia. [facility] Anesthesia Patient: LIVAN PERLA Age: 32 years Sex: Female : 1990 Associated Diagnoses: None Author: CODY ZAMBRANO MD DIAGNOSIS: HPV Preoperative Information Procedure/ Case: OPERATIVE HYSTEROSCOPY NPO greater than 8 hours. Anesthesia history Patient's history: negative. Review of Systems see [facility] Health Status Allergies: Allergies (1) Active Reaction No Known Allergies None Documented Current medications: Home Medications (1) Active Nature's Bounty Hair Skin and Nails 1 tabs, ORAL, DAILY LABORATORY DATA ChemistryBMP Plus Mag Glucose: 108 mg/dL High (10/01/22) Calcium: 8.6 mg/dL (10/01/22) Na: 143 mmol/L (10/01/22) K: 3.8 mmol/L (10/01/22) CO2, venous: 23.4 mmol/L (10/01/22) Chloride: 108 mmol/L (10/01/22) BUN: 9 mg/dL Low (10/01/22) Creatinine: 0.9 mg/dL (10/01/22) HematologyCBC brief [address] WBC: 10.5 x103/uL (10/01/22)\.br\Coagul ationPT INR [address]\.br\APTT Patient: 30.4 seconds (10/01/22)\.br\INR: 0.9 (10/01/22)\.br\Pregna ncyPregnancy Test\.br\ Test, U: NEG (11/15/22) \.br\ \.br\Histories \.br\Past Medical History: \.br\SMOKER \.br\Procedure history: Not significant \.br\ \.br\Physical Examination \.br\\.br\VITALS \.br\Vital Signs (last value in last 48 hours)\.br\Temperatur e Temporal Artery: 37.2 degC (11/15/22 12:00:00)\.br\Respira tory Rate: 12 br/min (11/15/22 12:00:00)\.br\Heart Rate Monitored: 78 bpm (11/15/22 12:00:00)\.br\Systoli c Blood Pressure: 122 mmHg (11/15/22 12:00:00)\.br\Diastol ic Blood Pressure: 82 mmHg (11/15/22 12:00:00)\.br\SpO2: 97 % (11/15/22 12:00:00)Height and Weight (last value in last 48 hours)\.br\Height/Seng gth Dosin cm (11/15/22 12:00:00)\.br\Weight Dosin.5 kg (11/15/22 12:00:00) \.br\General: Alert and oriented. \.br\Airway: Mallampati classification: II (soft palate, fauces, uvula visible). \.br\ \.br\Assessment and Plan \.br\[place] Society of Anesthesiologists (ASA) physical status classification: Class II. \.br\Anesthetic Preoperative Plan \.br\Anesthetic technique: General anesthesia. \.br\Maintenance airway: Laryngeal mask airway. \.br\Special monitoring: Standard ASA monitors.. \.br\Risks discussed. \.br\Informed consent: signed by patient. \.br\Notes: ALANA: NO. Betablocker: NONE. Normal [facility] Inpatient Patient Summaryon 11-15-2022 Inpatient Patient Summary [facility] Discharge Instructions [address] [place] [address] \.br\(Patient Copy)\.br\ \.br\ \.br\Name: COREY PERLA : 1990 \.br\Diagnosis: Cervical mass; High risk HPV infection; Post-op pain \.br\ \.br\Allergies: No Known Allergies\.br\ \.br\Registration Date: 11/15/22\.br\\.br\\.b r\ \.br\ Current Date Time: 11/15/2022 16:05:07 \.br\ \.br\Address: [facility] [address] [facility] [address] \.br\Phone: [phone] \.br\ \.br\Primary Care Provider: \.br\Name: NO FAMILY PHYSICIAN, 837\.br\Phone: \.br\ \.br\Thank you for choosing [facility] for your care. You are very important to us. Our goal is to demonstrate our high quality medical care and provide you with a very good patient experience.\.br\ You may receive a survey about our service. Please take the time to complete the survey and return it so we can continue to enhance our service.\.br\ Thank you again for allowing [facility] to care for your medical needs. If you have any questions about your care or follow up information please contact your doctor.\.br\\.br\Foll ow-up Instructions\.br\\.br \\.br\With: Address: When: \.br\IDALMIS COBB, Radiology, Obstetrics/Gynecology [address] [place] [address]\.br\ Business (1) In 2 weeks 11/29/2022 \.br\Comments: \.br\Call to schedule Follow up \.br\\.br\Prescriptio ns of Motrin and Percocet sent to [facility] \.br\\.br\\.br\\.br\\ .br\\.br\Medication Information\.br\Only Take The Medicines On This List. \.br\Keep This List and Bring It To Your Next Appointment. \.br\Medicines To Take At Home: \.br\ Medicine Name\.br\ (Generic Name) Amount to Take How to Take it How Often to Take it Additional Instructions Next Dose Due \.br\ Tylenol 325 mg oral capsule *\.br\(acetaminophen) 650 mg By Mouth EVERY FOUR HOURS Take as needed for Mild Pain\.br\\.br\\.br\\. br\\.br\\.br\ \.br\ acetaminophen-HYDROco done 325 mg-5 mg oral tablet *\.br\(acetaminophen- hydrocodone) 1 tabs By Mouth EVERY SIX HOURS Take as needed for Mild Pain\.br\\.br\\.br\\. br\\.br\\.br\\.br\\.b r\For 1 days \.br\ ibuprofen 600 mg oral tablet *\.br\(ibuprofen = motrin, advil) 600 mg By Mouth EVERY SIX HOURS \.br\\.br\For 2 days \.br\ Nature's Bounty Hair Skin and Nails\.br\(multivitam in) 1 tabs By Mouth DAILY \.br\\.br\Understandi ng your home medicine is important to keeping you healthy. If you are taking medications that are not on the preceding list, please call your doctor to see if you are to continue taking that medication. It is important that you do not skip or make up doses. If you are ordered an antibiotic, finish taking all the medicine unless your doctor tells you otherwise. Call your doctor if you have any questions or problems. Take the medicine list with you to all follow up appointments.\.br\\.b r\Patient education materials, if any, will display below\.br\[facility]\.br\Adult Home Going Instructions Following Surgery with Anesthesia\.br\\.br\A fter surgery you will be allowed to go home when you are awake, stable, taking fluids well, and without complications. The anesthesia medications used during surgery may cause you to feel dizzy, weak, or drowsy for up to 24 hours. For your safety, during the first 24 hours following an anesthetic:\.br\? Have a responsible adult with you\.br\? DO NOT drive a car, operate machinery, or use power tools\.br\? DO NOT take public transportation if you are alone\.br\? DO NOT drink alcohol, including beer or wine\.br\? DO NOT sign important papers or make important decisions\.br\? DO NOT take medication that has not been prescribed by your care provider\.br\? Only take kvik-vsc-weencuq or prescription medications as directed\.br\? Slowly resume diet\.br\? Activity as directed by your surgeon\.br\? Use extra care climbing stairs or walking with crutches\.br\\.br\If you have questions or problems that seem to be related to the anesthetic, call the hospital at [phone] and ask for the DIE ATTACHING MACHINE TENDER tailer in or anesthesiologist. \.br\Thank you for the privilege and opportunity to participate in your care. \.br\We wish you good health,\.br\Your Anesthesia Team\.br\\.br\\.br\Ge neral Information & when to contact the surgeon:\.br\? If you experience nausea and vomiting, eat clear soups, mild foods, and liquids for up to 12-48 hours until symptoms of nausea and vomiting are gone. Do not smoke. Call the surgeon for uncontrolled nausea and vomiting.\.br\? Pain does not mean that something is wrong, or the surgery did not go well. Do not wait until the pain gets bad to start taking pain medication. Increase activity each day as directed by surgeon as this increases blood flow to promote healing. Take short walks, rest when feeling tired. Do not move quickly or lift anything heavy until you feel better. Call the surgeon if pain gets worse or is not controlled by the medicine.\.br\? Perform coughing and deep breathing while splinting your incision a (more content not included)... [facility] OR Nursing Record - Main Adele n 11-15-2022 OR Nursing Record - Main OR OR Nursing Record - Main OR Summary Primary Physician: IDALMIS JIMENEZ Finalized Date/Time: 11/15/22 15:58:08 Pt. Name: COREY PERLA Brigido/Sex: 1990 Female Med Rec #: [id number] Physician: Financial #: [id number] Pt. Type: A Room/Bed: / Admit/Disch: 11/15/22 11:30:26 - Institution: Transport to OR - Main OR Entry 1 By Radha Singh RN, Date/Time Leaving 11/15/22 14:29:00 Ion RM, Jo Duncan Siderails Up? Yes Report Received From Arlene Spangler RN Last Modified By: Radha Singh RN 11/15/22 14:38:24 Case Times - Main OR Entry 1 Patient In Room Time 11/15/22 14:30:00 Out Room Time 11/15/22 15:36:00 Anesthesia Facility Times Induction Time 11/15/22 14:31:00 Stop Time 11/15/22 15:35:00 [place] Protocol Yes Completed Surgery Start Time 11/15/22 14:50:00 Stop Time 11/15/22 15:28:00 Last Modified By: Radha Singh RN 11/15/22 15:49:07 Surgical Procedures - Main OR Entry 1 Procedure D and C w Cervical Leep Modifiers None Surgeon Procedure HYSTEROSCOPY D&C Primary Procedure Yes Description Primary Surgeon IDALMIS JIMENEZ Start 11/15/22 14:50:00 Stop 11/15/22 15:28:00 Anesthesia Type General Surgical Service SN - Obstetric/Gynecology Last Modified By: Radha Singh RN 11/15/22 15:30:00 Case Attendance - Main OR Entry 1 Entry 2 Entry 3 Case Attendee IDALMIS JIMENEZ MD, CODY SANABRIA CRNA, CHAIM Role Performed Surgeon Primary Anesthesiologist Primary Anesthesia Asst/CHIEF ENGINEER'S HELPER Time In 11/15/22 14:30:00 11/15/22 14:30:00 11/15/22 14:30:00 Time Out 11/15/22 15:36:00 11/15/22 15:36:00 11/15/22 15:36:00 Procedure D and C w Cervical D and C w Cervical D and C w Cervical Leep(None) Leep(None) Leep(None) Last Modified By: Francisco RN, Radha Singh RN, Radha Singh RN, Radha 11/15/22 15:49:20 11/15/22 15:49:20 11/15/22 15:49:20 Entry 4 Entry 5 Entry 6 Case Attendee Jennie RODRIGUEZ, Yanet Orlando RN, Mary Lemon RN, Jo Role Performed PSYCHOLOGIST PRIVATE PRACTICE Primary PSYCHOLOGIST PRIVATE PRACTICE Orientee Dermatopathologist Orientee Time In 11/15/22 14:30:00 11/15/22 14:30:00 11/15/22 14:30:00 Time Out 11/15/22 15:01:00 11/15/22 15:01:00 11/15/22 15:36:00 Procedure D and C w Cervical D and C w Cervical D and C w Cervical Leep(None) Leep(None) Leep(None) Last Modified By: Francisco RN, Radha Singh RN, Radha Singh RN, Radha 11/15/22 15:49:20 11/15/22 15:49:20 11/15/22 15:49:20 Entry 7 Entry 8 Entry 9 Case Attendee Francisco RN, Radha Arzola TRANSFER AND PUMPHOUSE OPERATOR, Chang Prater Role Performed Dermatopathologist Primary Scrub Primary Scrub Relief Time In 11/15/22 14:30:00 11/15/22 14:30:00 11/15/22 15:00:00 Time Out 11/15/22 15:36:00 11/15/22 15:01:00 11/15/22 15:36:00 Procedure D and C w Cervical D and C w Cervical D and C w Cervical Leep(None) Leep(None) Leep(None) Last Modified By: Francisco RN, Radha Singh RN, Radha Singh RN, Radha 11/15/22 15:49:20 11/15/22 15:49:20 11/15/22 15:49:20 Entry 10 Case Attendee Hue PA-COctavio Role Performed PA-C Relief Time In 11/15/22 15:00:00 Time Out 11/15/22 15:36:00 Procedure D and C w Cervical Leep(None) Last Modified By: Radha Singh RN 11/15/22 15:49:20 General Case Data - Main OR Entry 1 Case Information OR OR 09 Schedule Type Scheduled Case Level Level 4 Wound Class Clean-Contaminated Specialty SN - ASA Class 2 Obstetric/Gynecology Procedure History Yes Documented Diagnosis Preop Diagnosis HPV INFECTION Postop Diagnosis HPV INFECTION Last Modified By: Radha Singh RN 11/15/22 15:15:08 Delays - Main OR Entry 1 Delay Reason Room Setup Delay Description CONTAMINATED ITEM ON STERILE FIELD Last Modified By: Radha Singh RN 11/15/22 14:47:40 Patient Positioning - Main OR Entry 1 Procedure D and C w Cervical Body Position Lithotomy Leep(None) Left Arm Position Extended on padded arm Right Arm Position Extended on padded arm board board Left Leg Position Secured in Stirrup Right Leg Position Secured in Stirrup Feet Uncrossed? Yes Press Points Checked Yes By ELLY ARBOLEDA, CHAIM, Positioning Devices Pillow under Head, Jennie PSYCHOLOGIST PRIVATE PRACTICE, Yanet, Stirrups, Infinity, Darion RN, Ion Hernandez SCDs Knee High, Safety RN, Jo Strap Last Modified By: Radha Singh RN 11/15/22 14:48:40 Skin Prep - Main OR Entry 1 Procedure D and C w Cervical Prep Area PERINEUM Leep(None) Prep Agents Betadine Solution By Mary Orlando RN Hair Removal Last Modified By: Radha Singh RN 11/15/22 14:48:58 Counts Verification - Main OR Entry 1 Entry 2 Entry 3 Count Type Initial Shift Change Final Closing Count Participants Dariusz PAYAN, Chang Kaur, Chang Kaur, Darion South RN, Dariusz PAYAN, Chang Singh RN, Radha Hernandez Count Status Correct Correct Correct Items Counted Sponges, Sharps Sponges, Sharps Sponges, Sharps Surgeon Notified n/a Yes Yes Closing Count Correct Last Modified By: Radha Singh RN (more content not included)... [facility] Operative Reporton Operative Report Date of Operation 11/15/2022 16:02 *Preoperative Diagnosis cervical mass, HPV 16 *Postoperative Diagnosis same Operative Procedure D&C hysteroscopy ECC Surgeon(s) IDALMIS JIMENEZ (Surgeon Primary) X Ray Technologist Octavio Swann PA-C (CUAUHTEMOC Relief) Indication for Tank Insulator Rubber Given the inherent complexity of this surgery, a second surgeon or a surgically skilled physician operations assistant was necessary for the successful completion of this entire operative procedure. The registered nurse surgical services was present for the entire operative procedure and participated in all aspects of patient care This included transporting the patient to the operating room and entering room with the patient, assisting with preoperative positioning, first assisting throughout the entire surgical procedure by functioning as a second operations assistant surgeon, assisting with surgical closure, and finally accompanying the patient to recovery. Anesthesia CODY BUTLER MD (Kitchen Food Assembler) CHAIM SANABRIA CRNA (Provider) *Estimated Blood Loss 100 *Specimen(s) EMC and ECC Description of Procedure PreOp: Cervical mass HPV 16 Postop same Procedure: D&C hysteroscopy, ECC Surgeon: Idalmis Cobb DO FACOG Anesthesia: Gen LMA Fluids: see anesthesia UOP: 100 EBL: 100 Specimen: EMC and ECC Indications: 32 yo G0= Cervical mass, AUB, discharge and pain, HPV 16 normal colposcopic evaluation Normal uterus and ovaries on u/s just 4 x 2.8 x 2.4 cervical mass with increase vascularity concerns for neoplasm pap- negative 12/03/21 with pos HPV 16 colpo biopsy HPV changes and ECC negative 10/10/2022 Procedure: Patient was taken to the operating room where she was prepped and draped in the normal sterile fashion in the dorsal lithotomy position. Adequate anesthesia was obtained. SCD's were in place and functioning. Red rubber catheter was used to drain the bladder for clear urine. 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 The speculum placed and the cervix isolated. The cervix was grasped with a ring forcep and easily dilated with mcrae dilators. The cervix appears more dilated since the colposcopy exam 10/15/22. ECC was performed and copious amounts of tissue removed- chucks and clot present. The hysteroscope was introduced without difficulty I could not visualized well as the scope would not clear. I did see the cavity the mass appeared to be at/around the internal os making entrance into the cavity difficult. Her uterus was not enlarged. I believe I sampled the uterus with sharp curettage and the EMC handed off. Confirmed no evidence of perforation. I continued to sample the cervix again to make sure enough tissue for diagnosis. I am still suspicious this is a malignant lesion. Bleeding was brisk. Due to the mass being up so high in the cervix I opted not to do the Leep Cone as I was unsure if I could get deep enough to sample it. All instruments were removed. Bleeding was minimal after cautery and monsels. Sponge, lap and needle count correct x2. Patient awakened from anesthesia and taken to the recovery room in good condition. [facility] Auto Mechanic Supervisor Details- Texton 11-15-2022 Auto Mechanic Supervisor Details- Text Auto Mechanic Supervisor Details Entered On: 11/15/2022 11:32 EST Performed On: 11/15/2022 12:29 EST by America Diego RN Auto Mechanic Supervisor Details Isolation Precaution Order Detail EV : NONE Order Detail EV : No Pacemaker Order Detail : 0 Auto Mechanic Supervisor Details Review Status : Initial Review Nurse Collects Blood Specimens : No America Digeo RN - 11/15/2022 12:29 EST Transport Mode Order Detail EV : Cart Isolation Precautions RTF : History and Physical by House Physician, 10/31/2022 10:50:00 EST, 10/31/2022 10:50:00 EST, Ordered IV Order Detail - EV : Yes Oxygen Order Detail EV : No America Diego RN - 11/15/2022 11:32 EST [facility] Outpatient Admission Data- T exton 11-15-2022 Outpatient Admission Data- Text Outpatient Admission Data Entered On: 11/15/2022 11:32 EST Performed On: 11/15/2022 12:30 EST by America Diego RN OP Assessment Mental Status : Alert Oriented : Person, Place, Time Pupils Equal, Round, Reactive to Light, and Accommodation : Yes Pupil Size, Left : 2 mm Pupil Size, Right : 2 mm Heart : Regular Lungs : Clear Voided : Yes Pain Level and Site : 0 Person Driving Pt Home : SISTER America Diego RN - 11/15/2022 12:29 EST Mobility : Ambulatory America Diego RN - 11/15/2022 11:32 EST Present on Admission Medical Devices : None Medical Devices for Med Administration : None America Diego RN - 11/15/2022 12:29 EST Hustler Coma Eye Opening Response Hustler : Spontaneously Best Verbal Response Yasmin : Oriented Best Motor Response Hustler : Obeys simple commands Hustler Coma Score : 15 Ameriac Diego RN - 11/15/2022 12:29 EST Outpatient Fall Risk GEN_Fall Risk Indicators_[id number] : Medications altering equilibrium or cognitive judgement Fall Risk Band On : Yes America Diego RN - 11/15/2022 12:29 EST Screening-Safety Domestic Concerns : None Feeling Down, Depressed, Hopeless : Not at all Little Interest - Pleasure in Activities : Not at all Initial Depression Screen Score : 0 Depression Screening Score 0 : No America Diego RN - 11/15/2022 12:29 EST [facility] PACU Phase I - Main ORon PACU Phase I - Main OR PACU Phase I - Ma in OR Summary Primary Physician: IDALMIS JIMENEZ Finalized Date/Time: 11/15/22 16:22:45 Pt. Name: COREY PERLA/Sex: 1990 Female Med Rec #: [id number] Physician: Financial #: [id number] Pt. Type: A Room/Bed: / Admit/Disch: 11/15/22 11:30:26 - Institution: PACU I - Case Times - Main OR Entry 1 In PACU I 11/15/22 15:37:00 Ready for Transfer 11/15/22 16:21:00 Last Modified By: Barb Matthews RN 11/15/22 16:22:44 Finalized By: Barb Matthews RN Document Signatures Signed By: Barb Matthews RN 11/15/22 16:22 [facility] PACU Phase II - Main ORon PACU Phase II - Main OR PACU Phase II - Main OR Summary Primary Physician: IDALMIS JIMENEZ Finalized Date/Time: 11/15/22 16:38:07 Pt. Name: COREY PERLA/Sex: 1990 Female Med Rec #: [id number] Physician: Financial #: [id number] Pt. Type: A Room/Bed: / Admit/Disch: 11/15/22 11:30:26 - Institution: PACU II - Case Times - Main OR Entry 1 In PACU II 11/15/22 16:25:00 Ready for PACU II n/a Discharge Discharge from PACU 11/15/22 16:38:00 II Last Modified By: Barb Matthews RN 11/15/22 16:38:06 Finalized By: Barb Matthews RN Document Signatures Signed By: Barb Matthews RN 11/15/22 16:38 [facility] Preop - Main ORon 11-15-2022 Preop - Main OR Preop - Main OR Summary Primary Physician: IDALMIS JIMENEZ Finalized Date/Time: 11/15/22 12:23:34 Pt. Name: COREY PERLA/Sex: 1990 Female Med Rec #: [id number] Physician: Financial #: [id number] Pt. Type: A Room/Bed: / Admit/Disch: 11/15/22 11:30:26 - Institution: Preop - Case Times - Main OR Entry 1 Patient Arrival Time 11/15/22 11:33:00 Patient Ready for 11/15/22 12:23:00 Surgery Report Given to n/a Last Modified By: America Diego RN 11/15/22 12:23:30 Finalized By: America Diego RN Document Signatures Signed By: America Diego RN 11/15/22 12:23 [facility] U TESTon 3 Test, U Negative [facility] Comment on above: Order Comment: Femal es: 10 and older Performed By: #### [id number] #### [facility] [address] [id number] Advertising Director: Edison Dasilva MD U Preg Internal QC Present [facility] Comment on above: Order Comment: Femal es: 10 and older Performed By: #### 1 [id number] #### [facility] [address] [place] [address] Advertising Director: Edison Dasilva MD [place] Protocol/Pre-Proc TimeOut-Texton 11-15-2022 [place] Protocol/Pre-Proc TimeOut-Text [place] Protocol Entered On: 11/15/2022 11:32 EST Performed On: 11/15/2022 12:31 EST by America Diego RN All Procedures Pre-Procedure Verification : Patient Identification (Name & Date), Informed Consent (Signed, Dated), Procedure Identified by Patient, Site Identified by Patient Radha Singh RN - 11/15/2022 15:47 EST Date/Time Pre-Procedure Verification : 11/15/2022 12:31 EST America Diego RN - 11/15/2022 12:31 EST Procedure this U.P. is completed for: : Hysteroscopy Dilatation and Curettage, Cervical Loop Electrosurgical Excision Proceduer of Cold Knife Cone Biopsy Procedure Location : Surgery America Diego RN - 11/15/2022 11:32 EST Allergy (As Of: 11/15/2022 15:48:58 EST) Allergies (Active) No Known Allergies Estimated Onset Date: Unspecified ; Created By: Munir Oglesby RN; Reaction Status: Active ; Category: Drug ; Substance: No Known Allergies ; Type: Allergy ; Updated By: Munir Oglesby RN; Reviewed Date: 11/15/2022 15:48 EST Beta Saran Beta Saran History : Patient does not take a Beta Saran America Diego RN - 11/15/2022 11:32 EST Site Marking Site Marking : Procedure is Exempt From Marking Site : UTERUS, CERVIX Laterality [place] Protocol : N/A Site Verification Completed : By Provider, In Pre-op / Procedure Holding area Radha Singh RN - 11/15/2022 15:47 EST Surgery / Sedation OR Procedure & Sedation Verification : History & Physical (within 30 days), Nursing Assessment Completed Relevant Images : Relevant Images / Diagrams Properly Labeled & Displayed Relevant Diagnostic Tests : Relevant Diagnostic Tests Available Blood Products : N/A Implants / Equiment : Required Implants & Special Equipment Available Correct Procedure : Accurate Procedure Consent Form, Correct Procedure, Correct Patient Position Antibiotics : Administration of Antibiotics or Fluids for Irrigation Purpose Safety Precautions : Safety Precautions Based on Patient Medication or History Date/Time of OR Procedure Sedation Checklist : 11/15/2022 14:20 EST Radha Singh RN - 11/15/2022 15:47 EST Final Verification Date/Time : 11/15/2022 14:49 EST Verification : Patient Identified (Name and Date), Correct Procedure, All Team Members are in Agreement Laterality : N/A Francisco RM, Radha - 11/15/2022 15:47 EST [facility] HCTon 10-31-2022 Hematocrit (Bld) [Volume fraction] 40.0 % Normal 36.0-46.0 [facility] Comment on above: Performed By: #### [id number] #### [facility] [address] [place], [place] [id number] Advertising Director: Edison Dasilva MD Preadmission Testing Progres s Noteon 10-31-2022 Preadmission Testing Progress Note PREADMISSION TESTING (PAT) INSTRUCTION SHEET [ X] Bring your Surgery Guide with you on day of surgery [ X ] Read and complete your Discharge Planning Checklist [ X ] Take only highlighted medications on morning of surgery [ X ] Stop all vitamins and herbal supplements 7 days prior to surgery (unless otherwise instructed) [ ] Call Surgeon when to stop taking the following: [X ] You will be asked to give urine specimen on arrival to surgery [ ] Bring on day of surgery: [X ] Additional instructions: No visitors will be allowed in pre-op or recovery on day of surgery [facility] Phone Msgon 10-18-2022 Phone Msg - From: IDALMIS JIMENEZ To: Adele Patton; Sent: 10/17/2022 12:54:56 EST Caller Name: COREY PERLA; Caller Number: H Called patient let her know results- they were only HPV changes. I informed her with the HPV 16 I am still concerned of cancer with the cervical mass higher up. We discussed the need for surgical eval in OR. She bled so much on colpo that I will need a hospital OR. D&c hysteroscopy, Leep or Cone She reports her pain has worsened on the Right side at times severe. We discussed if this continues she needs to go to ED for CT scan. Please schedule surgery. From: Adele Patton To: IDALMIS JIMENEZ; Sent: 10/18/2022 15:25:15 EST Subject: RE: Caller Name: COREY PERLA; Caller Number: H I have her scheduled for 11/15 at the hospital, I did call the patient and gave her the details. I made her two week post op appt. [facility] SURGICAL PATH REPORTon 10-15 SURGICAL PATH REPORT [facility] Department of Pathology [address] [place] [phone] Name: COREY PERLA : [address] [facility] [id number] Number: Gender Female [facility]. : n: Admit 32 years Attending IDALMIS JIMENEZ Age: Provider: Ordering IDALMIS JIMENEZ Provider: Consulti Surgical Pathology Report ng: ACCESSION: COLLECTED DATE/TIME: RECEIVED DATE/TIME: PATHOLOGIST: [id number] 10/09/2022 09:15 EST 10/10/2022 09:15 EST MATILDE CHAMBERS, LUÍS LEE Final Diagnosis (A) CERVIX, BIOPSY: - SQUAMOUS MUCOSA WITH FOCAL FEATURES SUGGESTIVE OF HPV EFFECT. COMMENT: A p16 and Ki-67 immunohistochemical were used in the evaluation of this specimen. A high-grade squamous intraepithelial lesion is excluded. Intradepartmental consultation obtained with diagnostic concurrence. (B) ECC: - MINUTE FRAGMENTS OF BLAND APPEARING ENDOCERVICAL GLAND. COMMENT: Deeper sections have been examined. LUÍS CLAYTON PATHOLOGIST (Electronic Signature) Date Verified 10/15/2022 LN Clinical Data PRE-OP DIAGNOSIS: Positive HPV 16 and other POST-OP DIAGNOSIS: Not specified PROCEDURES: Colposcopy SPECIMEN: (A) Cervical biopsy (B) ECC Gross Description (A) Labeled cervical biopsy. Received in formalin are two ovoid segments of colon-pink soft tissue. These measure 0.2 and 0.3 cm respectively. The specimen is entirely submitted in one cassette. ____ Print 10/17/2022 12:59 EST Number: Date/Time: [facility] Department of Pathology [address] [place] [phone] Name: COREY PERLA : [address] [facility] [id number] Number: [facility] : n: Admit 32 years Attending IDALMIS JIMENEZ Age: Provider: Ordering IDALMIS JIMENEZ Provider: Consulti Surgical Pathology Report ng: ACCESSION: COLLECTED DATE/TIME: RECEIVED DATE/TIME: PATHOLOGIST: [id number] 10/09/2022 09:15 EST 10/10/2022 09:15 EST MATILDE CHAMBERS, LUÍS LEE Gross Description (B) Labeled ECC. Received in formalin are multiple irregular colon feathery segments of soft tissue. The specimen is filtered and has a filtrate aggregate dimension of 0.4 x 0.3 x 0.1 cm. The specimen is entirely submitted in one cassette. MP/manan/carline 10/10/2022 Microscopic Diagnosis NOTE: One or more of the reagents used to perform assays on this specimen MAY have contained components considered to be analyte specific reagents ( ASRs). ASRs have not been cleared or approved by the U.S. Food and Drug Administration. The performance characteristics of these assays have been determined by the Department of Pathology at [facility]. This assay was performed subsequent to the H and E examination. Appropriate positive and negative controls were examined with appropriate reactivity. Codes CPT CODE: 16723 X2 + 30846 + 48912 ____ Print 10/17/2022 12:59 EST Number: Date/Time: [facility] Comment on above: Performed By: #### [id number] ####[facility] [id number] [id number] Medical Director: MD YOU Ruiz Urine POC 8102 5on 10-09-2022 Beta HCG ( test) Ql (U) Urine Test Entered On: 10/09/2022 9:24 EST Performed On: 10/09/2022 9:24 EST by Anne Marie Linn MA Urine HCG Urine Beta Human Chorionic Gonadotropin Qualitative : Negative Anne Marie Linn MA - 10/09/2022 9:24 EST [facility] Amb Office-Progress Notes-Pr ovideron 10-09-2022 Amb Office-Progress Notes-Provider Assessment/Plan This Visit Diagnosis 1. Cervical mass N88.8 Ordered: AMB Colposcopy Cervix w/Bx Endocerv Curetg [id number], 10/09/2022 14:50:00 EST, Cervical mass / Pre-procedure lab exam / High risk HPV infection, 1 2. Pre-procedure lab exam Z01.812 Ordered: AMB Colposcopy Cervix w/Bx Endocerv Curetg [id number], 10/09/2022 14:50:00 EST, Cervical mass / Pre-procedure lab exam / High risk HPV infection, 1 AMB Urine POC [id number], 10/09/2022 09:20:00 EST, Pre-procedure lab exam 3. 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 Arenas pt. Last pap-neg w/pos HPV other and 16. 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 She reports copious amounts of discharge this was witnessed on exam cervix appeared normal with ?fistulas tracts through cervix on colpo exam this was what appears to be the circumscribed mass within the cervix no exophytic increased vascularity AW was present parametrium did not appear to be involved as cervix was mobile from the right vaginal wall- due to the increased bleeding on colpo biopsy exam I was unable to do a pelvic as I didn't want her to start bleeding again in the office without proper tools to stop her bleeding discussed with patient due to clinical presentation pain and discharge and bleeding with my exam and HPV 16 I am worried about cancer and we discussed referral to etiquette coach onc once I get results. Physical Exam Vitals & Measurements BP: 120/70 HT: 163 cm WT: 62 kg BMI: 23.34 Depression Screening Scores Initial Depression Screen Score: 0 (10/09/22 09:09:00) Fall Risk Assessment Is the patient ambulatory (mobile): Yes (10/09/22 09:09:00) Have you had a fall within the past: No (10/09/22 09:09:00) Have you had 2 or more falls in the past: No (10/09/22 09:09:00) Procedure Colposcopy Consent obtain. Possible risks explained to patient who states understanding, consent obtained for colposcopy exam with cervical biopsy and ECC. Procedure: Patient was placed in the dorsal lithotomy position. The vulva was normal in appearance with no evidence of skin lesions. The cervix was visualized with a speculum and noted to be grossly normal in appearance but Right side appeared ?fistulas tracts with copious discharge present. The cervix and upper vagina were cleansed with diluted Acetic acid. The entire squamocolumnar junction was visualized with the colposcope, AW changes seen at 8 oclock and then able to visualize a circumscribed area of AW on the right side of cervix able to see thetracts seem to connect multiple biopsies were taken of the8 to 12 oclock, and ECC done. increased bleeding needing pressure Silver Nitrate and copious amount of monsels applied to obtain excellent hemostasis. Specimen sent to pathology. Patient tolerated procedure well. 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 Tobacco 10 or more cigarettes (1/2 pack or more)/day in last 30 days Tobacco Use:. Family History Breast cancer..: Grandmother. Cervical cancer..: Mother. Lab Results Test Name Test Result Date/Time U beta hCG Ql Negative 10/09/2022 09:24 EST Normal [facility] Ambulatory Clinical Summaryo n 10-09-2022 Ambulatory Clinical Summary COREY PERLA :1990 Visit Date:10/09/2022 Ambulatory Visit Instructions Your Diagnosis Pre-procedure lab exam Tests Performed AMB Urine POC 09272 Your Care Team Attending Physician - IDALMIS JIMENEZ Primary Care Physician - NO FAMILY PHYSICIAN, 837 Procedures Performed Gardasil vaccine series completed (2003) Discharge Vitals Blood Pressure 120/70 Height 163 cm Weight 62 kg BMI 23.34 Systolic Blood Pressure: 120 mmHg (10/09/22 09:09:00) Diastolic Blood Pressure: 70 mmHg (10/09/22 09:09:00) Mean Arterial Pressure: 87 mmHg (10/09/22 09:09:00) Height/Length Measured: 163 cm (10/09/22 09:09:00) Weight Measured: 62 kg (10/09/22 09:09:00) Body Mass Index Measured: 23.34 kg/m2 (10/09/22 09:09:00) Weight Measured - lbs2: 136 lb (10/09/22:09:00) Height/Length Measured - in2: 64.17 in (10/09/22:09:00) Body Mass Index Measured English2: 23.22 kg/m2 (10/09/22:09:) BSA: 1.67 m2 (10/09/22:09:00) Ht/Wt Measurement Refused by Patient?2: No (10/09/22:09:00) What to do next Scheduled Follow-Up Appointments No results Test Results AMB Urine POC 22541 (10/09/2022) U beta hCG Ql - Negative Allergies No Known Allergies Problems Ongoing - Any problem that you are currently receiving treatment for. HPV in female Common Emergency Awareness Tips IS IT A STROKE? Act FAST and Check for these signs: FACE Does the face look uneven? ARM Does one arm drift down? SPEECH Does their speech sound strange? TIME Call at any sign of stroke Heart Attack Signs Chest discomfort: Most heart attacks involve discomfort in the center of the chest and lasts more than a few minutes, or goes away and comes back. It can feel like uncomfortable pressure, squeezing, fullness or pain. Discomfort in upper body: Symptoms can include pain or discomfort in one or both arms, back, neck, jaw or stomach. Shortness of breath: With or without discomfort. Other signs: Breaking out in a cold sweat, nausea, or lightheaded. Remember, MINUTES DO MATTER. If you experience any of these heart attack warning signs, call to get immediate medical attention! Normal [facility] Comprehensive Intake - Texto n 10-09-2022 Comprehensive Intake - Text Comprehensive Intake Entered On: 10/09/2022 9:13 EST Performed On: 10/09/2022 9:09 EST by Anne Marie Linn MA Summary Chief Complaint : new pt/ Dr. Arenas pt. Last pap-neg w/pos HPV other and 16. unsure of lmp doesnt really get period not on any b.c Anne Marie Linn MA - 10/09/2022 9:13 EST Bladder Control Issues? : No Urine Leakage? : No Presence or absence of urinary incontinence assessed : Yes CPT-II Medication list doc'd in medical record : Yes Influenza immunization administered or previously received : No Pneumococcal vaccine administered or previously received : No Anne Marie Linn MA - 10/09/2022 9:09 EST Measurements Ht/Wt Measurement Refused by Patient? : No Weight Measured : 62 kg(Converted to: 136 lb 11 oz, 136.687 lb) Height/Length Measured : 163 cm(Converted to: 5 ft 4 in, 64.17 in) Body Mass Index Measured : 23.34 kg/m2 Body Mass Index documented : Yes Weight Measured - lbs : 136 lb(Converted to: 136 lb 0 oz, 62 kg) Height/Length Measured - in : 64.17 in(Converted to: 5 ft 4 in, 163 cm) Body Mass Index Measured Kosovan : 23.22 kg/m2 BSA Kosovan : 1.67 m2 Anne Marie Linn MA - 10/09/2022 9:09 EST Vitals Require BP : Yes Systolic Blood Pressure : 120 mmHg Diastolic Blood Pressure : 70 mmHg Mean Arterial Pressure : 87 mmHg Last Systolic BP : less than 130 mmHg Last Diastolic BP : less than 80 mmHg Pain Present : No actual or suspected pain Pain : 0 Pain severity quantified : No pain present Anne Marie Linn MA - 10/09/2022 9:13 EST Infection Screening - Ambulatory Exposure AND/OR close contact with a person under investigation or laboratory-confirmed COVID-19 individual within 14 days of symptom onset AND/OR any of the following: : No Do you live/work in a high risk situation (congregated living, hemodialysis, infusion clinic, jail, assisted living, retirement, homeless intermediate, etc.)? : No Anne Marie Linn MA - 10/09/2022 9:09 EST Depression Screening Is patient currently : None of the Below Feeling Down, Depressed, Hopeless : Not at all Little Interest - Pleasure in Activities : Not at all Initial Depression Screen Score : 0 Depression Screening Score 0 : No Anne Marie Linn MA - 10/09/2022 9:09 EST Falls Risk Assessment Is the patient ambulatory (mobile) : Yes Have you had 2 or more falls in the past year : No Have you had a fall within the past year that has caused an injury : No Patient screen for fall risk : no falls in last year OR 1 fall with no injury in last year Anne Marie Linn MA - 10/09/2022 9:09 EST Normal [facility] [employer]OR Visit - Texton 2 [employer]ILITY [employer]PER[employer]OR Visit - Text [employer]OR Visit Entered On : 10/09/2022 9:41 EST Performed On: 10/09/2022 9:40 EST by Anne Marie Linn MA [employer] Menstrual History Menstrual Status : Menarcheal Anne Marie Linn MA - 10/09/2022 9:40 EST [employer] Screenings Date of Last Pap Smear : 12/03/21 Last Pap Result : Negative Last Pap Result Comment : pos other and 16 HPV Anne Marie Linn MA - 10/09/2022 9:40 EST Normal [facility] Phone Msgon 10-08-2022 Phone Msg - From: Adele Patton To: IDALMIS JIMENEZ; Sent: 10/07/2022 11:10:10 EST Subject: RESULTS Caller Name: COREY PERLA; Caller Number: H Patient called today to schedule with you. She had a U/S done at the [facility]. they told her that she has a mass on her cervix and needed to see someone. She was a pt of Dr. Arenas she wanted to see you. I did schedule her for 11/12 with an U/S, if you could review the results see if she would need another U/S or if you feel she needs to come in sooner DV From: IDALMIS JIMENEZ To: Adele Patton; Sent: 10/07/2022 12:41:52 EST Subject: RE: RESULTS Caller Name: COREY PERLA; Caller Number: H With a cervical mass patient needs a colposcopy and biopsy She has + HPV 16 on a 12/01 pap No she does not need an u/s Yes she should be seen sooner this is likely cancer. Thank you From: Adele Patton To: IDALMIS JIMENEZ; Anne Marie Linn MA; Sent: 10/08/2022 10:21:47 EST Subject: RE: RESULTS Caller Name: COREY PERLA; Caller Number: H I have her scheduled for tomorrow at 9:00 for her colp and biopsy. I am not sure if she would need Cytotec. her pharmacy is correct in the chart. I can call her if we are sending a script to her pharmacy no she does not need Cytotec Normal [facility] Phone Msg - From: Adele Patton Sent: 10/08/2022 09:43:22 EST Subject: COLP Caller Name: COREY PERLA; Caller Number: H Patient is scheduled in November for her appt. I received a message from Dr. Cobb to have her come in sooner. I have an appt. 10/09/2022 at 9 Normal [facility] GP CHLAMnimesh 10-02-2022 Genprobe Chlamydia Negative Normal [facility] Comment on above: Result Comment: This Chlamydia assay is being performed via a second generation NAAT that utilizes target capture, machine sand mixer mediated amplification and dual kenetic assay technologies. Performed By: #### 1 [id number], [id number] #### [facility] [address] [place] [address] Advertising Director: Edison Dasilva MD GP GCon 10-02-2022 Genprobe GC Negative Normal [facility] Comment on above: Result Comment: This Gonorrhoea assay is being performed via a second generation NAAT that utilizes target capture, machine sand mixer mediated amplification and dual kenetic assay technologies. Performed By: #### 1 [id number], [id number] #### [facility] [address] [place], [place] [id number] Advertising Director: Edison Dasilva MD Pharmacy Clinical Interventi ons-Texton 10-02-2022 Pharmacy Clinical Interventions-Text Pharmacy Clinical Interventions Entered On: 10/02/2022 21:28 EST Performed On: 10/02/2022 21:28 EST by Corona Haq RPh Interventions Intervention Type Pharmacy : ED - Culture Call Back Pharmacy Order Initiated By : Pharmacist Clinical Importance Pharmacy : Potentially minor Prescriber Response Pharmacy : Corrected prior to contact Patient Clinical Outcome Pharmacy : Avoided potential risk Pharmacist Intervention Time : 5 Pharmacy Additional Information : see worklist documentation, gc/chlam Corona Haq RPh - 10/02/2022 21:28 EST Normal [facility] APTTon 2022 aPTT Coag (Bld) [Time] 30.4 s Normal 26.0-39.0 So [facility] Comment on above: Performed By: #### 1 [id number] #### [facility] [address] [place], [place] [id number] Advertising Director: Edison Dasilva MD AUTO DIFFon 2022 Baso Count 0.10 x1000 Normal 0.00-0.20 [facility] Comment on above: Performed By: #### C [id number] #### [facility] [address] [place], [place] [id number] Advertising Director: Edison Dasilva MD Basos % 1.1 % Normal [facility] Comment on above: Performed By: #### C [id number] #### [facility] [address] [place], [place] [address] Advertising Director: Edison Dasilva MD Eos Count 0.50 x1000 Normal 0.00-0.50 [facility] Comment on above: Performed By: #### C [id number] #### [facility] [address] [place], [place] [address] Advertising Director: Edison Dasilva MD Eosinophils/100 WBC (Bld) 4.6 % Normal [facility] Comment on above: Performed By: #### C [id number] #### [facility] [address] [place] [address] Advertising Director: Edison Dasilva MD Lymph Count 2.60 x1000 Normal 1.20-4.80 [facility] Comment on above: Performed By: #### C [id number] #### [facility] [address] [place] [address] Advertising Director: Edison Dasilva MD Lymphocytes/100 WBC (Bld) 24.8 % Normal [facility] Comment on above: Performed By: #### C [id number] #### [facility] [address] [place] [address] Advertising Director: Edison Dasilva MD Perry Count 0.80 x1000 Normal 0.10-1.00 [facility] Comment on above: Performed By: #### C [id number] #### [facility] [address] [place] [address] Advertising Director: Edison Dasilva MD Monocytes/100 WBC (Bld) 7.7 % Normal [facility] Comment on above: Performed By: #### C [id number] #### [facility] [address] [place] [address] Advertising Director: Edison Dasilva MD Neutrophil Count (ANC) 6.50 x1000 Normal 1.40-8.80 [facility] Comment on above: Performed By: #### C [id number] #### [facility] [address] [place] [address] Advertising Director: Edison Dasilva MD Neutrophils/100 WBC (Bld) 61.8 % Normal [facility] Comment on above: Performed By: #### C [id number] #### [facility] [address] [place] [address] Advertising Director: Edison Dasilva MD C WETPREPon 2022 C WETPREP [facility] [address] [place] [address] [phone] Name: COREY PERLA : 1990 Admitting Provider: Gender Female Financial [id number] : Number: Bernabe KELLEY SIVA; Bed 07; 1 n: Admit 2022 Date: Discharge Microbiology Date: PROCEDURE: C WETPREP SOURCE: VAGINAL BODY SITE: COLLECTED DATE/TIME: 2022 08:30 EST RECEIVED DATE/TIME: 2022 08:46 EST START DATE/TIME: 2022 08:46 EST FREE TEXT SOURCE: ORDERING PHYSICIAN: CODY WINKLER MD FINAL REPORTS Final Report [] Verified Date/Time: 2022 08:47 EST Negative for Trichmonas, Yeast and Clue cells. ____ L=Low, H= High, *= Abnormal, C=Critical, f=Footnote, c=Corrected, i=Interp Data Name: COREY PERLA Print 2022 08:47 EST Date/Time: Normal [facility] Comment on above: Performed By: #### 1 [id number] #### [facility] [address] [place] [address] Advertising Director: Edison Dasilva MD COMPMETAon 2022 GFR Estimated 73 Normal [facility] Comment on above: Result Comment: The GFR is calculated and is Age, Sex, and Race adjusted. Performed By: #### 1 [id number] #### [facility] [address] [place], [place] [id number] Advertising Director: Edison Dasilva MD Albumin [Mass/Vol] 3.7 g/dL Normal 3.4-5.0 [facility] Comment on above: Performed By: #### 1 [id number] #### [facility] [address] [place], [place] [phone] Advertising Director: Edison Dasilva MD Albumin/Globulin [Mass ratio] 1.1 {ratio} Normal [facility] Comment on above: Performed By: #### 1 43111 #### [facility] [address] [place], [place] [address] Advertising Director: Edison Dasilva MD Alk Phos 112 unit/L Normal 45-117 [facility] Comment on above: Performed By: #### 1 [id number] #### [facility] [address] [place], [place] [id number] Advertising Director: Edison Dasilva MD Bilirubin [Mass/Vol] 0.20 mg/dL Normal 0.20-1.00 [facility] Comment on above: Result Comment: Use of this assay is not recommended for patients undergoing treatment with eltrombopag due to the potential for falsely elevated results. Performed By: #### 1 [id number] #### [facility] [address] [place] [address] Advertising Director: Edison Dasilva MD Calcium [Mass/Vol] 8.6 mg/dL Normal 8.5-10.5 [facility] Comment on above: Performed By: #### 1 50378 #### [facility] [address] [place] [address] Advertising Director: Edison Dasilva MD Chloride [Moles/Vol] 108 mmol/L Normal 100-109 [facility] Comment on above: Performed By: #### 1 77931 #### [facility] [address] [place] [address] Advertising Director: Edison Dasilva MD CO2 [Moles/Vol] 23.4 mmol/L Normal 21.0-32.0 [facility] Comment on above: Performed By: #### 1 69995 #### [facility] [address] [place] [address] Advertising Director: Edison Dasilva MD Creatinine [Mass/Vol] 0.9 mg/dL Normal 0.6-1.0 [facility] Comment on above: Performed By: #### 1 [id number] #### [facility] [address] [place] [address] Advertising Director: Edison Dasilva MD Globulin (S) [Mass/Vol] 3.5 g/dL Normal [facility] Comment on above: Performed By: #### 1 [id number] #### [facility] [address] [place] [address] Advertising Director: Edison Dasilva MD Glucose [Mass/Vol] 108 mg/dL High 72-100 [facility] Comment on above: Result Comment: Raven puncture should occur prior to sulfasalazine administration due to the potential for falsely depressed results. Venipuncture should occur prior to sulfapyridine administration due to the potential falsely elevated results. Baseline assay values before administration of sulfasalazine and sulfapyridine therapy would not be affected. Performed By: #### 1 66987 #### [facility] [address] [place] [address] Advertising Director: Edison Dasilva MD GOT 13 unit/L Low 15-37 [facility] Comment on above: Result Comment: Raven puncture should occur prior to sulfasalazine administration due to the potential for falsely depressed results. Baseline assay values before administration of sulfasalazine and sulfapyridine therapy would not be affected. Performed By: #### 1 [id number] #### [facility] [address] [place] [address] Advertising Director: Edison Dasilva MD GPT 18 unit/L Normal 14-59 [facility] Comment on above: Result Comment: Raven puncture should occur prior to sulfasalazine administration due to the potential for falsely depressed results. Baseline assay values before administration of sulfasalazine and sulfapyridine therapy would not be affected. Performed By: #### 1 88085 #### [facility] [address] [place] [address] Advertising Director: Edison Dasilva MD Osmolality [Osmolality] 284 mosm/kg Normal 275-295 [facility] Comment on above: Performed By: #### 1 [id number] #### [facility] [address] [place] [address] Advertising Director: Edison Dasilva MD Potassium [Moles/Vol] 3.8 mmol/L Normal 3.5-5.1 [facility] Comment on above: Performed By: #### 1 24156 #### [facility] [address] [place] [address] Advertising Director: Edison Dasilva MD Protein [Mass/Vol] 7.2 g/dL Normal 6.0-8.5 [facility] Comment on above: Performed By: #### 1 79437 #### [facility] [address] [place] [address] Advertising Director: Edison Dasilva MD Sodium [Moles/Vol] 143 mmol/L Normal 135-145 [facility] Comment on above: Performed By: #### 1 08033 #### [facility] [address] [place] [address] Advertising Director: Edison Dasilva MD Urea nitrogen [Mass/Vol] 9 mg/dL Low 10-20 [facility] Comment on above: Performed By: #### 1 96149 #### [facility] [address] [place] [address] Advertising Director: Edison Dasilva MD Urea nitrogen/Creatinine [Mass ratio] 10.0 mg/mg Normal [facility] Comment on above: Performed By: #### 1 82709 #### [facility] [address] [id number] Advertising Director: Edison Dasilva MD ED Adult Data - Texton 10-01 ED Adult Data - Text ED Adult Data Enter ed On: 2022 7:37 EST Performed On: 2022 7:12 EST by Karina Encinas RN Arrival Information Information Given by : Patient Referral Source ED : Home [facility] Mode of Arrival : Car / Walk-In Airway : Normal Breathing : Normal Circulation : Normal Karina Encinas RN - 2022 7:36 EST Screening-General Meds Triage : NA Accept Blood Products if Necessary : Yes Immunizations Current : Yes Last Tetanus : Less than 5 years Preferred Verbal : Kosovan Karina Encinas RN - 2022 7:36 EST Depression Screening Patient able to verbalize? : Yes Feeling Down, Depressed, Hopeless : Not at all Little Interest - Pleasure in Activities : Not at all Initial Depression Screen Score : 0 Depression Screening Score 0 : No IP Pt being evaluated or treated for BH conditions : No Karina Encinas RN - 2022 7:36 EST Screening-Safety Abuse/Violence Concerns? : Patient denies Does the patient have a medically restricted extremity? : No Karina Encinas RN - 2022 7:36 EST Problem List Problem List obtained from : Patient Karina Encinas RN - 2022 7:36 EST (As Of: 2022 07:37:47 EST) Problems(Active) HPV in female (SNOMED CT :956823674 ) 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 ; Recorder: Karina Encinas RN; Confirmation: Confirmed ; Classification: Medical ; Code: [id number] ; Contributor System: [employer] ; Last Updated: 2022 07:37 EST ; Life Cycle Date: 2022 ; Life Cycle Status: Active ; Vocabulary: SNOMED CT Diagnoses(Active) Abdominal pain Date: 2022 ; Diagnosis Type: Reason For Visit ; Confirmation: Confirmed ; Clinical Dx: Abdominal pain ; Classification: Medical ; Clinical Service: Emergency medicine ; Code: PNED ; Probability: 0 ; Diagnosis Code: [id number] Vaginal bleeding Date: 2022 ; Diagnosis Type: Reason For Visit ; Confirmation: Confirmed ; Clinical Dx: Vaginal bleeding ; Classification: Medical ; Clinical Service: Emergency medicine ; Code: PNED ; Probability: 0 ; Diagnosis Code: [id number] Procedure History ED Devices Present on Arrival To ED : None Urinary Catheter Present on Admit to ED : No Karina Encinas RN - 2022 7:36 EST - Procedure History (As Of: 2022 07:37:47 EST) Social History Does pt have any alcohol,drugs or tobacco : No Do you consume Alcohol : No Social History obtained from : Patient Karina Encinas RN - 2022 7:36 EST Social History (As Of: 2022 07:37:47 EST) Tobacco: 10 or more cigarettes (1/2 pack or more)/day in last 30 days Tobacco Use:. (Last Updated: 11/22/2021 13:34:49 EST by Glory Dumont MA) Family History Family History obtained from : Patient Karina Encinas RN - 2022 7:36 EST Family History (As Of: 2022 07:37:47 EST) Negative History Infection Screening Last Physical Overnight Location of the Patient : Personal Residence Travel outside [place] within past 30 days : No Exposure AND/OR close contact with a person under investigation or laboratory-confirmed COVID-19 individual within 14 days of symptom onset AND/OR any of the following: : No Do you live/work in a high risk situation (congregated living, hemodialysis, infusion clinic, jail, assisted living, retirement, homeless intermediate, etc.)? 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 Often pelvic pain is not serious and gets better in a few days. If your pain continues or gets worse, you may need tests and treatment. Tell your doctor about any new symptoms. These may be signs of a serious problem. Follow-up care is a jimenez part of your treatment and safety. Be sure to make and go to all appointments, and call your doctor if you are having problems. It's also a good idea to know your test results and keep a list of the medicines you take. How can you care for yourself at home? ? Rest until you feel better. Lie down, and raise your legs by placing a pillow under your knees. ? Drink plenty of fluids. You may find that small, frequent sips are easier on your stomach than if you drink a lot at once. Avoid drinks with carbonation or caffeine, such as soda pop, tea, or coffee. ? Try eating several small meals instead of 2 or 3 large ones. Eat mild foods, such as rice, dry toast or crackers, bananas, and applesauce. Avoid fatty and spicy foods, other fruits, and alcohol until 48 hours after your symptoms have gone away. ? Take an gqlr-ukq-dikwdvw pain medicine, such as acetaminophen (Tylenol), ibuprofen (Advil, Motrin), or naproxen (Aleve). Read and follow all instructions on the label. ? Do not take two or more pain medicines at the same time unless the doctor told you to. Many pain medicines have acetaminophen, which is Tylenol. Too much acetaminophen (Tylenol) can be harmful. ? You can put a heating pad, a warm cloth, or moist heat on your belly to relieve pain. When should you call for help? Call your doctor now or seek immediate medical care if: ? You have a new or higher fever. ? You have unusual vaginal bleeding. ? You have new or worse belly or pelvic pain. ? You have vaginal discharge that has increased in amount or smells bad. Watch closely for changes in your health, and be sure to contact your doctor if: ? You do not get better as expected. Where can you learn more? Go to https://www.[employer].net/patientEd Enter B514 in the search box to learn more about Pelvic Pain: Care Instructions. Current as of: May 26, 2020 Content Version: 12.7 ? [employer]. Care instructions adapted under license by your healthcare professional. If you have questions about a medical condition or this instruction, always ask your healthcare professional. [employer] disclaims any warranty or liability for your use of this information. Vaginal Bleeding in Non Women: Care Instructions Your Care Instructions Many women have bleeding or spotting between periods. Lots of things can cause it. You may bleed because of hormone problems, stress, or ovulation. Fibroids and IUDs (intrauterine devices) can also cause bleeding. If your bleeding or spotting is caused by one of these things and is not heavy or doesn't happen often, you probably don't need to worry. But in rare cases, infection, cancer, or other serious conditions can cause bleeding. So you may need more tests to find the cause of your bleeding. The doctor has checked you carefully, but problems can develop later. If you notice any problems or new symptoms, get medical treatment right away. Follow-up care is a jimenez part of your treatment and safety. Be sure to make and go to all appointments, and call your doctor if you are having problems. It's also a good idea to know your test results and keep a list of the medicines you take. How can you care for yourself at home? ? Take pain medicines exactly as directed. ? If the doctor gave you a prescription medicine for pain, take it as prescribed. ? If you are not taking a prescription pain medicine, ask your doctor if you can take an xear-ynv-cdeejfs medicine. Do not take aspirin, which may make bleeding worse. ? If your doctor prescribed control pills for your bleeding, take them as directed. ? Eat foods that are high in iron and vitamin C. Foods high in iron include red meat, shellfish, eggs, beans, and leafy green vegetables. Foods high in vitamin C include citrus fruits, tomatoes, and broccoli. Ask your doctor if you need to take iron pills or a multivitamin. ? Ask your doctor when it is okay to have sex. When should you call for help? Call 911 anytime you think you may need emergency care. For example, call if: ? You passed out (lost consciousness). Call your doctor now or seek immediate medical care if: ? You have severe vaginal bleeding. ? You are dizzy or lightheaded, or you feel like you may faint. ? You have new or worse belly or pelvic pain. Watch closely for changes in your health, and be sure to contact your doctor if: ? Your bleeding gets worse. ? You think you might be . ? You do not get better as expected. Where can you learn more? Go to https://www.[employer]/patientEd Enter L814 in the search box to learn more (more content not included)... [facility] ED Emergency Severity Index Adult-Texton 2022 ED Emergency Severity Index Adult-Text ANDREA - Adult Entered On: 2022 7:31 EST Performed On: 2022 7:10 EST by Karina Encinas RN ANDREA DCP GENERIC CODE Visit Reason : abd pain/vag bleeding Tracking Triage Date/Time : 2022 07:31 EST Tracking Reg Status : Requested Tracking Acuity : 3-Urgent Tracking Group : Karina Liu RN - 2022 7:31 EST [facility] ED Nrsing Adlt Triage Sep Sc rning - Texton 2022 ED Nrsing Adlt Triage Sep Scrning - Text ED Nursing Adult Triage Sepsis Screening Tool Entered On: 2022 7:32 EST Performed On: 2022 7:12 EST by Karina Encinas RN Adult Sepsis Screening Sepsis Infection Screening ED : No Karina Encinas RN - 2022 7:32 EST [facility] ED Patient Summaryon 022 ED Patient Summary [facility] Discharge Instructions [address] [place] [address] \.br\(Patient Copy)\.br\ \.br\Name: COREY PERLA : 1990 \.br\Allergies: No Known Allergies\.br\Diagnos is: Cervical spinal mass; Pelvic pain; Uterine bleeding, dysfunctional\.br\ \.br\ Visit Date: 2022 07:10:18 \.br\ Current Date Time: 2022 12:44:19 \.br\Address: [address] [place], [place] [id number] \.br\Phone: [phone] \.br\ \.br\Primary Care Provider: \.br\ Name: NO FAMILY PHYSICIAN, 837\.br\ Phone: \.br\ \.br\Emergency Department Care Providers: \.br\ Primary Physician: CODY WINKLER MD \.br\ \.br\ \.br\\.br\Thank you for choosing [facility] for your emergency care. You are very important to us. Our goal is to demonstrate our high quality medical care, and provide you with a very good patient experience.\.br\\.br\ You may receive a survey about our service. Please take the time to complete the survey and return it so we can continue to enhance our service.\.br\\.br\Tony nk you again for allowing the [facility] Emergency Department to care for your medical needs. If you have questions about your care or follow up information please contact us at [phone].\.br\\.b r\ Follow-Up Instructions\.br\____ _\.br\COREY PERLA has been given these follow-up instructions:\.br\\.b r\\.br\With: Address: When: \.br\[facility] Within 3 to 5 days \.br\Comments: \.br\ULTRAM FOR PAIN \.br\MOTRIN FOR INFLAMMATION \.br\HAVE YOUR RESEARCH ANIMAL FACILITY SUPERVISOR EVALUATE CERVICAL MASS/CYST \.br\\.br\\.br\With: Address: When: \.br\[address] NO FAMILY PHYSICIAN Within 3 to 5 days \.br\\.br\\.br\\.br\\ .br\ Patient Education Materials\.br\ \. br\COREY PERLA has been given the following patient education materials:\.br\\.br\P elvic Pain: Care Instructions\.br\Your Care Instructions\.br\\.br \Pelvic pain, or pain in the lower belly, can have many causes. Often pelvic pain is not serious and gets better in a few days. If your pain continues or gets worse, you may need tests and treatment. Tell your doctor about any new symptoms. These may be signs of a serious problem.\.br\Follow-u p care is a jimenez part of your treatment and safety. Be sure to make and go to all appointments, and call your doctor if you are having problems. It's also a good idea to know your test results and keep a list of the medicines you take.\.br\How can you care for yourself at home?\.br\? Rest until you feel better. Lie down, and raise your legs by placing a pillow under your knees.\.br\? Drink plenty of fluids. You may find that small, frequent sips are easier on your stomach than if you drink a lot at once. Avoid drinks with carbonation or caffeine, such as soda pop, tea, or coffee.\.br\? Try eating several small meals instead of 2 or 3 large ones. Eat mild foods, such as rice, dry toast or crackers, bananas, and applesauce. Avoid fatty and spicy foods, other fruits, and alcohol until 48 hours after your symptoms have gone away.\.br\? Take an hetb-kji-rsphqkz pain medicine, such as acetaminophen (Tylenol), ibuprofen (Advil, Motrin), or naproxen (Aleve). Read and follow all instructions on the label.\.br\? Do not take two or more pain medicines at the same time unless the doctor told you to. Many pain medicines have acetaminophen, which is Tylenol. Too much acetaminophen (Tylenol) can be harmful.\.br\? You can put a heating pad, a warm cloth, or moist heat on your belly to relieve pain.\.br\When should you call for help?\.br\ Call your doctor now or seek immediate medical care if: \.br\ ? You have a new or higher fever. \.br\ ? You have unusual vaginal bleeding. \.br\ ? You have new or worse belly or pelvic pain. \.br\ ? You have vaginal discharge that has increased in amount or smells bad. \.br\Watch closely for changes in your health, and be sure to contact your doctor if:\.br\ ? You do not get better as expected. \.br\Where can you learn more?\.br\Go to https://www.[employer].net/patientEd\.br\E nter B514 in the search box to learn more about Pelvic Pain: Care Instructions.\.br\Cur rent as of: May 26, 2020 Content Version: 12.7\.br\? [employer]. \.br\Care instructions adapted under license by your healthcare professional. If you have questions about a medical condition or this instruction, always ask your healthcare professional. [employer] disclaims any warranty or liability for your use of this information.\.br\\.br \Vaginal Bleeding in Non Women: Care Instructions\.br\Your Care Instructions\.br\\.br \Many women have bleeding or spotting between periods. Lots of things can cause it. You may bleed because of hormone problems, stress, or ovulation. Fibroids and IUDs (intrauterine devices) can also cause bleeding.\.br\If your bleeding or spotting is caused by one of these things and is not heavy or doesn't happen oft (more content not included)... [facility] ED Physician Reporton 2021 ED Physician Report Patient: LIVAN PERLA Age: 32 years Sex: Female : 1990 Associated Diagnoses: None Author: CODY WINKLER MD Basic Information Time seen: Date 2022. History source: Patient. Arrival mode: Private vehicle. History limitation: None. Additional information: Patient's physician(s): ABD/PELVIC PAIN. History of Present Illness The patient presents with abdominal pain and 32-year-old female who is a G0, P0 she has never been in the past and normally does not have periods. She states her last episode of bleeding was in October. She has had a history PVD. She complains of lower abdominal suprapubic cramping and pain that started yesterday with vaginal bleeding with passing clots. She presents now for further evaluation. She denies any fever chills she has had some nausea without any vomiting denies any dysuria frequency and no diarrhea. The onset was 1 days ago. The course/duration of symptoms is constant. The character of symptoms is achy and crampy. The degree at onset was moderate. The Location of pain at onset was SUPRPUBIC. The degree at present is moderate. Radiating pain: none. The exacerbating factor is none. The relieving factor is none. Therapy today: none. Risk factors consist of none. Associated symptoms: nausea, denies vomiting, denies diarrhea and denies fever. Review of Systems Constitutional symptoms: No fever, no chills. Skin symptoms: No rash, Eye symptoms: Negative except as documented in HPI. ENMT symptoms: Negative except as documented in HPI. Respiratory symptoms: No shortness of breath, no orthopnea. Cardiovascular symptoms: No chest pain, no palpitations. Gastrointestinal symptoms: Abdominal pain, suprapubic, cramping, nausea, No vomiting, Genitourinary symptoms: Vaginal bleeding, no dysuria, no hematuria. Musculoskeletal symptoms: No back pain, Neurologic symptoms No headache, Additional review of systems information: All other systems reviewed and otherwise negative. Health Status Allergies: Allergic Reactions (Selected) No Known Allergies. Past Medical/ Family/ Social History Medical history: No active or resolved past medical history items have been selected or recorded.. Surgical history: No active procedure history items have been selected or recorded.. Family history: Entire family history is negative.. 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 Physical Examination Vital Signs Vital Signs 2022 7:12 EST Systolic Blood Pressure 145 mmHg HI Diastolic Blood Pressure 92 mmHg HI Temperature Oral 36.8 degC NORMAL Respiratory Rate 18 br/min NORMAL SpO2 97 % NORMAL Oxygen Therapy Room air Peripheral Pulse Rate 76 bpm NORMAL Weight Measured Type of Scale Standing Scale Height/Length Dosing 162 cm Weight Dosing 63.6 kg Body Mass Index Dosing 24 . Measurements 2022 7:12 EST Weight Measured Type of Scale Standing Scale Height/Length Dosing 162 cm Weight Dosing 63.6 kg Body Mass Index Dosing 24 . General: Alert, mild distress. Skin: Warm, dry, no rash. Head: Normocephalic, atraumatic. Neck: Trachea midline, no tenderness. Eye: Pupils are equal, round and reactive to light, extraocular movements are intact. Ears, nose, mouth and throat: Oral mucosa moist, no pharyngeal erythema or exudate. Cardiovascular: Regular rate and rhythm, No murmur, Normal peripheral perfusion, No edema. Respiratory: Lungs are clear to auscultation, respirations are non-labored. Chest wall: No tenderness, No deformity. Back: Nontender, Normal range of motion. Musculoskeletal: Normal ROM, normal strength. Gastrointestinal: Soft, Non distended, Normal bowel sounds, Tenderness: Mild, suprapubic, Rebound: Negative. Genitourinary: Patient had fair amount of dark blood in the vaginal vault but no active bleeding there is uterus was not enlarged nor tender at this time there is no adnexal masses that were detected cultures were sent. Lymphatics: No lymphadenopathy. Psychiatric: Cooperative, appropriate mood & affect. Neurological Alert and oriented to person, place, time, and situation, No focal neurological deficit observed, normal sensory observed, normal motor observed. Medical Decision Making Electrocardiogram: ECG Interpretation 2022 7:12 EST Immunizations Current Yes Last Tetanus Less than 5 years Airway Normal Breathing Normal Circulation Normal Meds Triage NA Systolic Blood Pressure 145 mmHg HI Diastolic Blood Pressure 92 mmHg HI Temperature Oral 36.8 degC NORMAL Respiratory Rate 18 br/min NORMAL SpO2 97 % NORMAL Oxygen Therapy Room air Peripheral Pulse Rate 76 bpm NORMAL VAS Pain Scale Age VAS (8 yrs & older) Numeric Pain Scale 10 = Severe Pain Pain Symptoms Yes Preferred Verbal Kosovan Feeling Down, Depressed, Hopeless Not at all Initial Depression Screen Score 0 Little Interest - Pleasure in Activities Not at all Depression Screenin (more content not included)... [facility] ED Progress Noteon 2 ED Progress Note 0711 brought in through triage with complaints of low, transverse abd pain with vaginal bleeding since yesterday. patient states that she doesn't get periods and that her ob is aware of that. patient states that she is unsure if this is a period or if something else is wrong. alert and oriented x 3. family member at bedside. 0754 patient medicated. patient updated on plan of care. 0915 pelvic exam done by dr. winkler and assisted by me. genital cultures obtained and sent to lab. 1020 patient voiced no new complaints. 1108 patient recently medicated. 1212 patient denies pain. iv taken out, catheter intact. resp even and unlabored. vitals stable. prescription given to patient. patient signed discharge papers. [facility] ED Triage Adult-Texton 10-01 ED Triage Adult-Text ED Triage Entered O n: 2022 7:36 EST Performed On: 2022 7:12 EST by Karina Encinas RN Triage (As Of: 2022 07:36:24 EST) Diagnoses(Active) Abdominal pain Date: 2022 ; Diagnosis Type: Reason For Visit ; Confirmation: Confirmed ; Clinical Dx: Abdominal pain ; Classification: Medical ; Clinical Service: Emergency medicine ; Code: PNED ; Probability: 0 ; Diagnosis Code: [id number] Vaginal bleeding Date: 2022 ; Diagnosis Type: Reason For Visit ; Confirmation: Confirmed ; Clinical Dx: Vaginal bleeding ; Classification: Medical ; Clinical Service: Emergency medicine ; Code: PNED ; Probability: 0 ; Diagnosis Code: [id number] (As Of: 2022 07:36:24 EST) Allergies (Active) No Known Allergies Estimated Onset Date: Unspecified ; Created By: Munir Oglesby RN; Reaction Status: Active ; Category: Drug ; Substance: No Known Allergies ; Type: Allergy ; Updated By: Munir Oglesby RN; Reviewed Date: 2022 7:32 EST Vitals/Ht/Wt Temperature Oral : 36.8 degC Pulse Rate : 76 bpm Respiratory Rate : 18 br/min Systolic Blood Pressure : 145 mmHg (HI) Diastolic Blood Pressure : 92 mmHg (HI) SpO2 : 97 % Oxygen Therapy : Room air Pain Symptoms : Yes Numeric Pain Scale : 10 = Severe Pain VAS Pain Scale Age : VAS (8 yrs & older) Height/Length Dosing : 162 cm(Converted to: 5.31 ft, 63.78 in) Weight Measured Type of Scale : Standing Scale Weight Dosing : 63.6 kg(Converted to: 2,243.424 oz, 140.214 lb) Body Mass Index Dosing : 24 Karina Encinas RN - 2022 7:32 EST [facility] HCG QUANTon 2022 HCG, Quant 1.0 mIU/mL [facility] Comment on above: Result Comment: 0.2- 1 weeks 5 -50 mIU/ml 1 - 2 weeks 50-500 mIU/ml 2 - 3 weeks 100-5,000 mIU/ml 3 - 4 weeks 500-10,000 mIU/ml 4 - 5 weeks 1,000-50,000 mIU/ml 5 - 6 weeks 10,000-100,000 mIU/ml 6 - 8 weeks 15,000-200,000 mIU/ml 2 - 3 months 10,000-100,000 mIU/ml Performed By: #### 1 [id number] #### [facility] [address] [place] [address] Advertising Director: Edison Dasilva MD HEMOon 2022 DIFF? No [facility] Comment on above: Performed By: #### 1 [id number] #### [facility] [id number] [place] [address] Advertising Director: Edison Dasilva MD Erythrocyte distribution width (RBC) [Ratio] 14.0 % Normal 11.5-14.5 [facility] Comment on above: Performed By: #### 1 [id number] #### [facility] [address] [place] [address] Advertising Director: Edison Dasilva MD Hematocrit (Bld) [Volume fraction] 43.0 % Normal 36.0-46.0 [facility] Comment on above: Performed By: #### 1 [id number] #### [facility] [address] [place], [place] [id number] Advertising Director: Edison Dasilva MD Hemoglobin (Bld) [Mass/Vol] 14.5 g/dL Normal 12.0-16.0 [facility] Comment on above: Performed By: #### 1 [id number] #### [facility] [address] [place], [place] [id number] Advertising Director: Edison Dasilva MD Instr WBC 10.5 [facility] Comment on above: Performed By: #### 1 [id number] #### [facility] [address] [place], [place] [id number] Advertising Director: Edison Dasilva MD MCH (RBC) [Entitic mass] 31.9 pg Normal 27.0-34.0 [facility] Comment on above: Performed By: #### 1 [id number] #### [facility] [address] [place] [address] Advertising Director: Edison Dasilva MD MCHC (RBC) [Mass/Vol] 33.7 g/dL Normal 32.0-37.0 [facility] Comment on above: Performed By: #### 1 [id number] #### [facility] [address] [place], [place] [phone] Advertising Director: Edison Dasilva MD MCV (RBC) [Entitic vol] 94.6 fL Normal 80.0-100.0 [facility] Comment on above: Performed By: #### 1 [id number] #### [facility] [address] [place], [place] [phone] Advertising Director: Edison Dasilva MD Nucleated RBC 0 /100WBC Normal [facility] Comment on above: Performed By: #### 1 [id number] #### [facility] [address] [place] [address] Advertising Director: Edison Dasilva MD Platelet 401 x10 Normal 150-450 [facility] Comment on above: Performed By: #### 1 [id number] #### [facility] [address] [place] [id number] Advertising Director: Edison Dasilva MD Platelet mean volume (Bld) [Entitic vol] 7.4 fL Normal 7.4-10.4 [facility] Comment on above: Performed By: #### 1 [id number] #### [facility] [address] [place] [address] Advertising Director: Edison Dasilva MD RBC 4.55 x10 Normal 4.20-5.40 [facility] Comment on above: Result Comment: Note : RBC morphology is normal unless otherwise stated. Evaluation performed only if differential is requested. Performed By: #### 1 [id number] #### [facility] [address] [place] [address] Advertising Director: Edison Dasilva MD WBC 10.5 x10 Normal 4.5-11.0 [facility] Comment on above: Performed By: #### 1 [id number] #### [facility] [address] [place] [address] Advertising Director: Edison Dasilva MD KETOROLAC 30MG/1ML INJon KETOROLAC 30MG/1ML INJ PRN Response Ente red On: 2022 16:29 EST Performed On: 2022 12:00 EST by Karina Encinas RN Intervention Information: ketorolac Performed by Karina Encinas RN on 2022 11:05:00 EST ketorolac = Toradol,30mg IV Push,Right Antecubit Ray PRN Medication Response PRN Medication used for : Pain PRN Medication Effectiveness : Yes PRN Response Pain Scales : Numeric (8yrs & older) Numeric Pain Scale Age : Numeric (8yrs & older) Actual time of reassessment : No (not needed time is correct) Karina Encinas RN - 2022 16:29 EST Numeric Pain Scale Numeric Pain Scale : 3 = Mild Pain Numeric Pain Score : 3 Karina Encinas RN - 2022 16:29 EST [facility] Comment on above: Order Comment: do no t exceed 60mg/24hrs for patients over 65, 120mg/24hr for patients 65 or younger; MorPHINE 2MG/1ML INJon 10-01 MorPHINE 2MG/1ML INJ PRN Response Entere d On: 2022 11:30 EST Performed On: 2022 8:56 EST by Karina Encinas RN Intervention Information: morphine Performed by Karina Encinas RN on 2022 07:58:00 EST morphine,4mg IV Push,Right Antecubit Thornton PRN Medication Response PRN Medication used for : Pain PRN Medication Effectiveness : Yes PRN Response Pain Scales : Numeric (8yrs & older) Numeric Pain Scale Age : Numeric (8yrs & older) Actual time of reassessment : No (not needed time is correct) Karina Encinas RN - 2022 11:30 EST Numeric Pain Scale Numeric Pain Scale : 3 = Mild Pain Numeric Pain Score : 3 Karina Encinas RN - 2022 11:30 EST [facility] Comment on above: Order Comment: deanna ruffin SOUND ALIKE/LOOK ALIKE-verify med;potential SOUND ALIKE/LOOK ALIKE-verify med; PT INRon 2022 INR Coag (PPP) [Relative time] 0.90 {INR} [facility] Comment on above: Result Comment: INR Reference Range: Normal reference range for INR on patients not on anticoagulant therapy: 0.9-1.1 General therapeutic range for patients on anticoagulant therapy: 2.0-3.5 Performed By: #### 1 [id number] #### [facility] [address] [place] [address] Advertising Director: Edison Dasilva MD Protime Patient 10.4 seconds Normal 9.8-13.4 [facility] Comment on above: Performed By: #### 1 [id number] #### [facility] [address] [place] [address] Advertising Director: Edison Dasilva MD UAon 2022 Bacteria, U Few Normal [facility] Comment on above: Performed By: #### C D:[id number] #### [facility] [address] [place] [address] Advertising Director: Edison Dasilva MD Mucous, U Occasional Normal [facility] Comment on above: Performed By: #### C D:[id number] #### [facility] [address] [place] [address] 60599 Advertising Director: Edison Dasilva MD RBC/HPF, U 2 #/HPF Normal 0-3 [facility] Comment on above: Performed By: #### C D:[id number] #### [facility] [address] [place] [address] Advertising Director: Edison Dasilva MD Squamous Epithelial Cells, U <1 Normal [facility] Comment on above: Performed By: #### C D:[id number] #### [facility] [address] [place] [address] Advertising Director: Edison Dasilva MD U MICRO Indicated Normal [facility] Comment on above: Performed By: #### C D:[id number] #### [facility] [address] [place] [address] Advertising Director: Edison Dasilva MD WBC/HPF, U <1 Normal 0-5 [facility] Comment on above: Performed By: #### C D:[id number] #### [facility] [address] [place] [address] Advertising Director: Edison Dasilva MD Appearance, U Clear Normal [facility] Comment on above: Performed By: #### C [id number] #### [facility] [address] [place] [address] 82726 Advertising Director: Edison Dasilva MD Bilirubin, U Negative Normal Negative [facility] Comment on above: Performed By: #### C D:[id number] #### [facility] [address] [place] [address] 0[address]99 Advertising Director: Edison Dasilva MD Blood, U Large Abnormal Negative [facility] Comment on above: Performed By: #### C D:[id number] #### [facility] [address] [place] [address]76 Advertising Director: Edison Dasilva MD Color, U Yellow Normal [facility] Comment on above: Performed By: #### C D:[id number] #### [facility] [address] [place] [address] Advertising Director: Edison Dasilva MD Glucose Qual, U Negative Normal Negative [facility] Comment on above: Performed By: #### C D:[id number] #### [facility] [address] [place] [address]94 Advertising Director: Edison Dasilva MD Ketones, U Negative Normal Negative [facility] Comment on above: Performed By: #### C D:[id number] #### [facility] [address] [place] [address] Advertising Director: Edison Dasilva MD Leukocyte Esterase, U Negative Normal Negative [facility] Comment on above: Performed By: #### C D:[id number] #### [facility] [address] [place] [address] 23694 Advertising Director: Edison Dasilva MD Nitrite, U Negative Normal Negative [facility] Comment on above: Performed By: #### C D:[id number] #### [facility] [address] [place] [address] Advertising Director: Edison Dasilva MD pH, U 5.5 Normal 4.5-8.0 [facility] Comment on above: Performed By: #### C D:[id number] #### [facility] [address] [place] [address] Advertising Director: Edison Dasilva MD Protein, U Negative Normal Negative [facility] Comment on above: Performed By: #### C D:[id number] #### [facility] [address] [place] [address] Advertising Director: Edison Dasilva MD Specific [place], U S>=1.030 Normal 1.001-1.035 [facility] Comment on above: Performed By: #### C D:[id number] #### [facility] [address] [place] [address] Advertising Director: Edison Dasilva MD Urobilinogen Qual, U 0.2 EU/dl Normal 0.1-1.0 mg/dl [facility] Comment on above: Result Comment: EU/d l and mg/dl are equivalent units. Performed By: #### C D:[id number] #### [facility] [address] [place] [address] Advertising Director: Edison Dasilva MD CORONAVIRUS 2019 BY PCRon CORONAVIRUS 2019,PCR NOT DETECTED Normal Not Detected [facility] Comment on above: Result Comment: This assay is designed to detect the N, ORF1ab and/or S genes of SARS-CoV-2 via nucleic acid amplification. A Negative (NOT DETECTED) result does not preclude 2019-nCoV infection since the adequacy of sample collection and/or low viral burden may result in presence of viral nucleic acids below the clinical sensitivity of this test method. Negative (NOT DETECTED) result should not be used as the sole basis for treatment or other patient management decisions. Rather negative results should be combined with clinical observations, patient history, and epidemiological information to make patient management decisions. Fact sheet for providers: https://www.fda.gov/media/266117/download Fact sheet for patients: https://www.fda.gov/media/692225/download This test has received FDA Emergency Use Authorization (EUA) and has been verified by [facility] ([facility]). This test is only authorized for the duration of time that circumstances exist to justify the authorization of the emergency use of in vitro diagnostic tests for the detection of SARS-CoV-2 virus and/or diagnosis of COVID-19 infection under section 564(b)(1) of the Act, 21 U.S.C. 360bbb-3(b)(1), unless the authorization is terminated or revoked sooner. [facility] is certified under CLIA-88 as qualified to perform high complexity testing. Testing is performed in the [facility] laboratories located at [address] [place] [address]. Performed By: #### C OV19 #### [address] [place] [address] CORONAVIRUS 2019 BY PCRon Lab Specimen Source Nasal, Nasopharyngeal Normal [facility] Comment on above: Performed By: #### C OV19 #### [address] [place] [address] Vital Signs Date Time Vital Sign Value Performing Clinician Facility 03-25-2024 11:50-0400 Body mass index (BMI) [Ratio] 20.43 kg/m2 Chang Thorpe MD Work Phone: [facility] 03-25-2024 11:50-0400 Body temperature 98.01 [degF] Chang Thorpe MD Work Phone: [facility] 03-25-2024 11:50-0400 Body weight 53.98 kg Chang Thorpe MD Work Phone: [facility] 03-25-2024 11:50-0400 Diastolic blood pressure 69 mm[Hg] Chang Thorpe MD Work Phone: [facility] 03-25-2024 11:50-0400 Heart rate 71 /min Chang Thorpe MD Work Phone: [facility] 03-25-2024 11:50-0400 Systolic blood pressure 108 mm[Hg] Chang Thorpe MD Work Phone: [facility] 05-07-2023 10:42-0400 Body height 162.6 cm Fernando De La Rosa MD Work Phone: [facility] 05-07-2023 10:42-0400 Body mass index (BMI) [Ratio] 20.08 kg/m2 Fernando De La Rosa MD Work Phone: [facility] 05-07-2023 10:42-0400 Body weight 53.07 kg Fernando De La Rosa MD Work Phone: [facility] 05-07-2023 10:42-0400 Diastolic blood pressure 74 mm[Hg] Fernando De La Rosa MD Work Phone: [facility] 05-07-2023 10:42-0400 Heart rate 82 /min Fernando De La Rosa MD Work Phone: [facility] 05-07-2023 10:42-0400 Systolic blood pressure 111 mm[Hg] Fernando De La Rosa MD Work Phone: [facility] 04-24-2023 14:29-0400 Body height 162.6 cm Jayy Ocampo MD Work Phone: [facility] 04-24-2023 14:29-0400 Body mass index (BMI) [Ratio] 20.43 kg/m2 Jayy Ocampo MD Work Phone: [facility] 04-24-2023 14:29-0400 Body temperature 97.7 [degF] Jayy Ocampo MD Work Phone: [facility] 04-24-2023 14:29-0400 Body weight 53.98 kg Jayy Ocampo MD Work Phone: [facility] 04-24-2023 14:29-0400 Diastolic blood pressure 60 mm[Hg] Jayy Ocampo MD Work Phone: [facility] 04-24-2023 14:29-0400 Heart rate 77 /min Jayy Ocampo MD Work Phone: [facility] 04-24-2023 14:29-0400 Respiratory rate 18 /min Jayy Ocampo MD Work Phone: [facility] 04-24-2023 14:29-0400 SaO2% (BldA) [Mass fraction] 98 % Jayy Ocampo MD Work Phone: [facility] 04-24-2023 14:29-0400 Systolic blood pressure 115 mm[Hg] Jayy Ocampo MD Work Phone: [facility] 03-04-2023 14:53-0400 Diastolic blood pressure 53 mm[Hg] Chair 1 [facility] 03-04-2023 14:53-0400 Heart rate 52 /min Chair 1 [facility] 03-04-2023 14:53-0400 Systolic blood pressure 108 mm[Hg] Chair 1 [facility] 03-04-2023 14:52-0400 SaO2% (BldA) [Mass fraction] 97 % Chair 1 [facility] 03-04-2023 10:01-0400 Body mass index (BMI) [Ratio] 20.58 kg/m2 Chair 1 [facility] 03-04-2023 10:01-0400 Body temperature 98.4 [degF] Chair 1 [facility] 03-04-2023 10:01-0400 Body weight 54.39 kg Chair 1 [facility] 03-04-2023 10:01-0400 Respiratory rate 14 /min Chair 1 [facility] 02-25-2023 14:17-0400 Diastolic blood pressure 71 mm[Hg] Chair 4 [facility] 02-25-2023 14:17-0400 Heart rate 61 /min Chair 4 [facility] 02-25-2023 14:17-0400 Systolic blood pressure 122 mm[Hg] Chair 4 [facility] 02-25-2023 12:35-0400 Body mass index (BMI) [Ratio] 20.29 kg/m2 Chair 4 [facility] 02-25-2023 12:35-0400 Body temperature 98.2 [degF] Chair 4 [facility] 02-25-2023 12:35-0400 Body weight 53.62 kg Chair 4 [facility] 02-25-2023 12:35-0400 Respiratory rate 14 /min Chair 4 [facility] 02-25-2023 12:35-0400 SaO2% (BldA) [Mass fraction] 98 % Chair 4 [facility] 02-18-2023 10:02-0400 Body height 162.6 cm Chair 4 [facility] 02-18-2023 10:02-0400 Body mass index (BMI) [Ratio] 20.67 kg/m2 Chair 4 [facility] 02-18-2023 10:02-0400 Body temperature 98.49 [degF] Chair 4 [facility] 02-18-2023 10:02-0400 Body weight 54.61 kg Chair 4 [facility] 02-18-2023 10:02-0400 Diastolic blood pressure 75 mm[Hg] Chair 4 [facility] 02-18-2023 10:02-0400 Heart rate 64 /min Chair 4 [facility] 02-18-2023 10:02-0400 Respiratory rate 16 /min Chair 4 [facility] 02-18-2023 10:02-0400 Systolic blood pressure 123 mm[Hg] Chair 4 [facility] 02-11-2023 14:44-0400 Body temperature 98.91 [degF] Bed 2 [facility] 02-11-2023 14:44-0400 Diastolic blood pressure 63 mm[Hg] Bed 2 [facility] 02-11-2023 14:44-0400 Heart rate 70 /min Bed 2 [facility] 02-11-2023 14:44-0400 Respiratory rate 18 /min Bed 2 [facility] 02-11-2023 14:44-0400 Systolic blood pressure 111 mm[Hg] Bed 2 [facility] 02-11-2023 08:55-0400 Body height 162.6 cm Bed 2 [facility] 02-11-2023 08:55-0400 Body mass index (BMI) [Ratio] 20.41 kg/m2 Bed 2 [facility] 02-11-2023 08:55-0400 Body weight 53.93 kg Bed 2 [facility] 02-11-2023 08:55-0400 SaO2% (BldA) [Mass fraction] 98 % Bed 2 [facility] 01-02-2023 14:05-0500 Body height 162.6 cm Jayy Ocampo MD Work Phone: [facility] 01-02-2023 14:05-0500 Body mass index (BMI) [Ratio] 20.8 kg/m2 Jayy Ocampo MD Work Phone: [facility] 01-02-2023 14:05-0500 Body temperature 98.01 [degF] Jayy Ocampo MD Work Phone: [facility] 01-02-2023 14:05-0500 Body weight 54.98 kg Jayy Ocampo MD Work Phone: [facility] 01-02-2023 14:05-0500 Diastolic blood pressure 70 mm[Hg] Jayy Ocampo MD Work Phone: [facility] 01-02-2023 14:05-0500 Heart rate 69 /min Jayy Ocampo MD Work Phone: [facility] 01-02-2023 14:05-0500 Respiratory rate 18 /min Jayy Ocampo MD Work Phone: [facility] 01-02-2023 14:05-0500 SaO2% (BldA) [Mass fraction] 98 % Jayy Ocampo MD Work Phone: [facility] 01-02-2023 14:05-0500 Systolic blood pressure 111 mm[Hg] Jayy Ocampo MD Work Phone: [facility] 01-01-2023 10:20-0500 Body height 162.6 cm Fernando De La Rosa MD Work Phone: [facility] 01-01-2023 10:20-0500 Body mass index (BMI) [Ratio] 21.63 kg/m2 Fernando De La Rosa MD Work Phone: [facility] 01-01-2023 10:20-0500 Body weight 57.15 kg Fernando De La Rosa MD Work Phone: [facility] 01-01-2023 10:20-0500 Diastolic blood pressure 76 mm[Hg] Fernando De La Rosa MD Work Phone: [facility] 01-01-2023 10:20-0500 Heart rate 83 /min Fernando De La Rosa MD Work Phone: [facility] 01-01-2023 10:20-0500 Systolic blood pressure 125 mm[Hg] Fernando De La Rosa MD Work Phone: [facility] 12-24-2022 10:53-0500 Body height 162.6 cm Shala Inga MASS SPECTROSCOPIST - INTERVENTIONAL TECHNOLOGIST Work Phone: [facility] 12-24-2022 10:53-0500 Body mass index (BMI) [Ratio] 21.46 kg/m2 Shala Inga MASS SPECTROSCOPIST - INTERVENTIONAL TECHNOLOGIST Work Phone: [facility] 12-24-2022 10:53-0500 Body weight 56.7 kg Shala Inga MASS SPECTROSCOPIST - INTERVENTIONAL TECHNOLOGIST Work Phone: [facility] 12-24-2022 10:53-0500 Diastolic blood pressure 74 mm[Hg] Shala Inga MASS SPECTROSCOPIST - INTERVENTIONAL TECHNOLOGIST Work Phone: [facility] 12-24-2022 10:53-0500 Heart rate 108 /min Shala Inga MASS SPECTROSCOPIST - INTERVENTIONAL TECHNOLOGIST Work Phone: [facility] 12-24-2022 10:53-0500 Systolic blood pressure 174 mm[Hg] Shala Inga MASS SPECTROSCOPIST - INTERVENTIONAL TECHNOLOGIST Work Phone: [facility] 12-24-2022 04:41-0500 Diastolic blood pressure 86 mm[Hg] [facility] 12-24-2022 04:41-0500 Heart rate 75 /min [facility] 12-24-2022 04:41-0500 Respiratory rate 17 /min [facility] 12-24-2022 04:41-0500 SaO2% (BldA) [Mass fraction] 100 % [facility] 12-24-2022 04:41-0500 Systolic blood pressure 124 mm[Hg] [facility] 12-24-2022 01:10-0500 Body temperature 98.3 [degF] [facility] 12-23-2022 23:35-0500 Body height 162.56 cm [facility] 12-23-2022 23:35-0500 Body mass index (BMI) [Ratio] 21.6 kg/m2 [facility] 12-23-2022 23:35-0500 Body weight 57.15 kg [facility] 11-22-2022 08:34-0500 Body height 162.6 cm Fernando De La Rosa MD Work Phone: [facility] 11-22-2022 08:34-0500 Body mass index (BMI) [Ratio] 23.09 kg/m2 Fernando De La Rosa MD Work Phone: [facility] 11-22-2022 08:34-0500 Body weight 61.01 kg Fernando De La Rosa MD Work Phone: [facility] Encounters Encounter Date Encounter Type Care Provider Facility Start: 12-22-2024 End: 12-22-2024 Emergency department patient visit No Primary Care Physician Facility:[facility] Start: 12-04-2024 End: 12-04-2024 Emergency department patient visit Amadou Cobos Facility:[facility] Start: 08-10-2024 End: 08-10-2024 Emergency department patient visit Ranulfomando Finley Facility:[facility] Start: 04-27-2024 End: 04-27-2024 Telemedicine consultation with patient Chang Thorpe MD Work Phone: Gynecology Start: 04-27-2024 End: 04-27-2024 ambulatory Chang Thorpe MD Work Phone: Gynecology Comment on above: History of cervical cancer (Primary Dx); Symptomatic menopausal or female climacteric states [N95.1] Start: 04-13-2024 Orders Only Eliane Hrnc frank MASS SPECTROSCOPIST.INTERVENTIONAL TECHNOLOGIST Work Phone: Gynecology Start: 04-12-2024 Orders Only Eliane Hrnc rfank MASS SPECTROSCOPIST.INTERVENTIONAL TECHNOLOGIST Work Phone: Gynecology Start: 04-06-2024 Orders Only Dianna Brigette silva MASS SPECTROSCOPIST.INTERVENTIONAL TECHNOLOGIST Work Phone: Gynecology Comment on above: Malignant neoplasm o f overlapping sites of cervix (HCC) (Primary Dx) Start: 04-03-2024 Telephone encounter Brandan porter MASS SPECTROSCOPIST.INTERVENTIONAL TECHNOLOGIST Work Phone: Gynecology Comment on above: Patient Update Start: 03-25-2024 Telephone encounter Milena Flores MD Work Phone: [facility] Gy[facility] Oncology Comment on above: Appointment Start: 03-25-2024 End: 03-25-2024 ambulatory CHANG THORPE Facility:[facility] Start: 03-25-2024 End: 03-25-2024 Follow-up encounter Chang Thorpe MD Work Phone: Gynecology Comment on above: Encounter for follow -up surveillance of cervical cancer (Primary Dx); Generalized abdominal pain; Vasomotor symptoms due to menopause Start: 03-25-2024 End: 03-25-2024 Patient encounter procedure Chang Thorpe MD Work Phone: Gynecology Start: 03-22-2024 End: 03-22-2024 ambulatory CHANG THORPE Facility:[facility] Start: 03-22-2024 End: 03-22-2024 Subsequent hospital visit by physician [facility] Cat Scan Comment on above: Encounter for follow -up surveillance of cervical cancer [Z08, Z85.41] Start: 12-29-2023 End: 12-29-2023 ambulatory FERNANDO DE LA ROSA Facility:[facility] Start: 12-29-2023 End: 12-29-2023 Manual pelvic examination Rich Lowe MD Work Phone: Gastroenterology Comment on above: Pelvic floor dysfunc tion (Primary Dx) Start: 12-29-2023 End: 12-29-2023 Telemedicine consultation with patient Rich Lowe MD Work Phone: [facility] Start: 12-18-2023 ambulatory Chang Thorpe MD Work Phone: Gynecology Oncology Comment on above: Corey perla Start: 12-01-2023 End: 12-01-2023 ambulatory CHANG THORPE Facility:[facility] Start: 12-01-2023 Encounter for other preprocedural examination CHANG THORPE [facility] Start: 11-27-2023 End: 11-27-2023 ambulatory CHANG THORPE Facility:[facility] Start: 11-27-2023 Encounter for other preprocedural examination [facility] Start: 08-28-2023 End: 08-28-2023 Emergency department patient visit ALEX MIMS DO Facility:[id number] Start: 05-12-2023 Orders Only Fernando baer MD Work Phone: [facility] Comment on above: Bladder spasms (Prim marilee Dx) Start: 05-08-2023 Telephone encounter Abbi nava MASS SPECTROSCOPIST - INTERVENTIONAL TECHNOLOGIST Work Phone: [facility] Start: 05-07-2023 End: 05-07-2023 ambulatory [facility] Start: 05-07-2023 End: 05-07-2023 Office outpatient visit 15 minutes Fernando De La Rosa MD Work Phone: [facility] Comment on above: 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); Cystitis; Menopausal symptom Start: 04-24-2023 End: 04-25-2023 ambulatory [facility] Start: 04-24-2023 End: 04-24-2023 Subsequent hospital visit by physician Jayy Ocampo MD Work Phone: [facility] Comment on above: 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) Start: 04-22-2023 End: 04-22-2023 Emergency department patient visit SILVIA GARCIA MD Facility:[id number] Start: 03-24-2023 Telephone encounter Abbi nava MASS SPECTROSCOPIST - INTERVENTIONAL TECHNOLOGIST Work Phone: [facility] Start: 03-21-2023 End: 03-22-2023 ambulatory FERNANDO DE LA ROSA [facility] Start: 03-21-2023 End: 03-21-2023 Subsequent hospital visit by physician Fernando De La Rosa MD Work Phone: [facility] Comment on above: Stage I adenocarcino ma of cervix (CMS/HCC) (HCC); Malignant neoplasm of endocervix (HCC) Start: 03-19-2023 End: 03-20-2023 ambulatory [facility] Start: 03-19-2023 End: 03-19-2023 Subsequent hospital visit by physician Jayy Ocampo MD Work Phone: [facility] Start: 03-18-2023 End: 03-19-2023 ambulatory [facility] Start: 03-18-2023 End: 03-18-2023 Subsequent hospital visit by physician Jayy Ocampo MD Work Phone: [facility] Start: 03-17-2023 End: 03-18-2023 ambulatory [facility] Start: 03-17-2023 End: 03-17-2023 ambulatory [facility] Start: 03-16-2023 End: 03-16-2023 Subsequent hospital visit by physician Jayy Ocampo MD Work Phone: [facility] Comment on above: Arrived Start: 03-14-2023 End: 03-15-2023 ambulatory [facility] Start: 03-14-2023 End: 03-14-2023 Subsequent hospital visit by physician Jayy Ocampo MD Work Phone: [facility] Start: 03-13-2023 End: 03-14-2023 ambulatory [facility] Start: 03-13-2023 End: 03-13-2023 Subsequent hospital visit by physician Brock [facility] Start: 03-13-2023 Telephone encounter Avel Dobson [facility] Comment on above: OTHER Start: 03-12-2023 End: 03-13-2023 ambulatory [facility] Start: 03-12-2023 End: 03-12-2023 Subsequent hospital visit by physician Varian [facility] Start: 03-12-2023 Telephone encounter Shala crump APRN - INTERVENTIONAL TECHNOLOGIST Work Phone: [facility] Start: 03-12-2023 End: 03-13-2023 ambulatory FERNANDO [facility] Start: 03-11-2023 End: 03-12-2023 ambulatory [facility] Start: 03-11-2023 End: 03-11-2023 Subsequent hospital visit by physician Varian [facility] Start: 03-10-2023 End: 03-11-2023 ambulatory JAYY [facility] Start: 03-10-2023 End: 03-10-2023 Subsequent hospital visit by physician Jayy Ocampo MD Work Phone: [facility] Start: 03-10-2023 End: 03-10-2023 ambulatory [facility] Start: 03-09-2023 End: 03-09-2023 Subsequent hospital visit by physician Billing Only Appointments Radiation Oncology [facility] Comment on above: Arrived Start: 03-07-2023 End: 03-08-2023 [facility] Start: 03-07-2023 End: 03-07-2023 Subsequent hospital visit by physician Varian [facility] Start: 03-06-2023 End: 03-07-2023 [facility] Start: 03-06-2023 End: 03-06-2023 Subsequent hospital visit by physician Varian [facility] Start: 03-05-2023 End: 03-06-2023 [facility] Start: 03-04-2023 End: 03-04-2023 Subsequent hospital visit by physician Varian [facility] Start: 03-04-2023 End: 03-05-2023 ambulatory Fernando De La Rosa MD Work Phone: [facility] Comment on above: Stage I adenocarcino ma of cervix (CMS/HCC) (HCC); Malignant neoplasm of endocervix (HCC) Start: 03-03-2023 End: 03-04-2023 Orders Only Abbi Quintana CNP Work Phone: [facility] Gynecologic Oncology Comment on above: 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) Start: 03-03-2023 End: 03-03-2023 ambulatory [facility] Start: 03-02-2023 End: 03-02-2023 Subsequent hospital visit by physician Billing Only Appointments Radiation Oncology [facility] Comment on above: Arrived Start: 02-27-2023 Telephone encounter Shala Lrmando crump MASS SPECTROSCOPIST - INTERVENTIONAL TECHNOLOGIST Work Phone: [facility] Obstetrics [facility] Gynecology Start: 02-26-2023 End: 02-27-2023 ambulatory SHALA XIONG [facility] Start: 02-26-2023 End: 02-26-2023 Subsequent hospital visit by physician [facility] Exam Room [facility] US Imaging Comment on above: Thrombophlebitis Start: 02-25-2023 End: 02-26-2023 ambulatory Fernando De La Rosa MD Work Phone: [facility] Comment on above: Stage I adenocarcino ma of cervix (CMS/HCC) (HCC); Malignant neoplasm of endocervix (HCC) Start: 02-24-2023 End: 02-24-2023 Emergency department patient visit [address] [facility] Facility:[facility] Start: 02-24-2023 End: 02-25-2023 ambulatory Start: 02-24-2023 Telephone encounter Fernando De La Rosa MD Work Phone: [facility] Gynecologic Oncology Comment on above: Page doctor (Page Dr De La Rosa) Start: 02-24-2023 End: 02-24-2023 ambulatory Start: 02-21-2023 End: 02-22-2023 ambulatory Start: 02-21-2023 End: 02-21-2023 Subsequent hospital visit by physician Jayy Ocampo MD Work Phone: [facility] Start: 02-19-2023 End: 02-20-2023 Refill Jayy Ocampo MD Work Phone: [facility] Comment on above: Stage I adenocarcino ma of cervix (CMS/HCC) (HCC) Start: 02-18-2023 Telephone encounter Yolanda Hudson RD Oncology Supportive Care Comment on above: Nutrition Counseling Start: 02-18-2023 End: 02-18-2023 Subsequent hospital visit by physician Varian [facility] Start: 02-18-2023 End: 02-19-2023 ambulatory Fernando De La Rosa MD Work Phone: [facility] Comment on above: Stage I adenocarcino ma of cervix (CMS/HCC) (HCC) (Primary Dx); Dysuria; Malignant neoplasm of endocervix (HCC) Start: 02-17-2023 End: 02-18-2023 ambulatory [facility] Start: 02-17-2023 End: 02-17-2023 Subsequent hospital visit by physician Jayy Ocampo MD Work Phone: [facility] Start: 02-17-2023 Telephone encounter Jayy flores MD Work Phone: [facility] Comment on above: Difficulty Urinating Start: 02-17-2023 End: 02-17-2023 ambulatory [facility] Start: 02-16-2023 End: 02-16-2023 Subsequent hospital visit by physician Billing Only Appointments Radiation Oncology [facility] Comment on above: Arrived Start: 02-14-2023 End: 02-15-2023 ambulatory [facility] Start: 02-13-2023 End: 02-14-2023 ambulatory [facility] Start: 02-13-2023 End: 02-13-2023 Subsequent hospital visit by physician Brock [facility] Start: 02-12-2023 End: 02-13-2023 ambulatory [facility] Start: 02-12-2023 End: 02-12-2023 Subsequent hospital visit by physician Jayy Ocampo MD Work Phone: [facility] Start: 02-11-2023 Telephone encounter Avel Dobson [facility] Gynecologic Oncology Comment on above: low potassium Start: 02-11-2023 End: 02-11-2023 Subsequent hospital visit by physician Brock [facility] Start: 02-11-2023 End: 02-12-2023 ambulatory Fernando De La Rosa MD Work Phone: [facility] Comment on above: Stage I adenocarcino ma of cervix (CMS/HCC) (HCC) Start: 02-10-2023 End: 02-11-2023 ambulatory [facility] Start: 02-10-2023 End: 02-10-2023 Subsequent hospital visit by physician Jayy Ocampo MD Work Phone: [facility] Start: 02-10-2023 End: 02-10-2023 ambulatory [facility] Start: 02-09-2023 End: 02-09-2023 Subsequent hospital visit by physician Billing Only Appointments Radiation Oncology [facility] Comment on above: Arrived Start: 02-07-2023 End: 02-08-2023 ambulatory [facility] Start: 02-07-2023 End: 02-07-2023 Subsequent hospital visit by physician Varian [facility] Start: 02-07-2023 Telephone encounter Jaylin Luevano Oncology Supportive Care Start: 02-06-2023 End: 02-07-2023 [facility] Start: 02-06-2023 End: 02-06-2023 Subsequent hospital visit by physician Brock [facility] Start: 02-06-2023 Telephone encounter Jaylin Luevano Oncology Supportive Care Start: 02-05-2023 End: 02-06-2023 [facility] Start: 02-04-2023 End: 02-05-2023 [facility] Start: 02-04-2023 End: 02-04-2023 Subsequent hospital visit by physician Brock [facility] Start: 02-04-2023 End: 02-05-2023 [facility] Start: 02-03-2023 End: 02-04-2023 Refill Jayy Ocampo MD Work Phone: [facility] Start: 02-03-2023 End: 02-03-2023 ambulatory [facility] Start: 02-02-2023 End: 02-02-2023 Subsequent hospital visit by physician Billing Only Appointments Radiation Oncology [facility] Comment on above: Arrived Start: 01-30-2023 End: [facility]-31-[facility] Start: 01-30-2023 End: 01-30-2023 Subsequent hospital visit by physician Jayy Ocampo MD Work Phone: [facility] Start: 01-27-2023 End: 01-27-2023 ambulatory [facility] Start: 01-26-2023 End: 01-26-2023 Subsequent hospital visit by physician Billing Only Appointments Radiation Oncology [facility] Comment on above: Arrived Start: 01-22-2023 Telephone encounter Jaylin Luevano Oncology Supportive Care Start: 01-20-2023 End: 01-20-2023 ambulatory [facility] Start: 01-19-2023 End: 01-19-2023 Subsequent hospital visit by physician Billing Only Appointments Radiation Oncology [facility] Comment on above: Arrived Start: 01-16-2023 End: 01-17-2023 [facility] Start: 01-16-2023 End: 01-16-2023 Subsequent hospital visit by physician Shanell Fofana MD Work Phone: [facility] Start: 01-16-2023 End: 01-16-2023 Subsequent hospital visit by physician [facility] Exam Room [address] [facility] Comment on above: Malignant neoplasm o f endocervix (HCC) Start: 01-15-2023 End: 01-16-2023 [facility] Start: 01-15-2023 End: 01-15-2023 Subsequent hospital visit by physician Billing Only Appointments Radiation Oncology [facility] Comment on above: Arrived Start: 01-10-2023 Telephone encounter Jaylin Luevano Oncology Supportive Care Start: 01-09-2023 Telephone encounter Jaylin Luevano Oncology Supportive Care Start: 01-03-2023 Telephone encounter Yolanda Hudson RD Oncology Supportive Care Comment on above: Nutrition Counseling Start: 01-02-2023 End: 01-03-2023 ambulatory [facility] Comment on above: Postoperative lower abdominal pain (Primary Dx); Stage I adenocarcinoma of cervix (CMS/HCC) (HCC) Start: 01-02-2023 End: 01-02-2023 Subsequent hospital visit by physician Jayy Ocampo MD Work Phone: [facility] Comment on above: Stage I adenocarcino ma of cervix (CMS/HCC) (HCC) Start: 01-01-2023 End: 01-01-2023 ambulatory [facility] Start: 01-01-2023 End: 01-01-2023 Postop follow up visit related to original px Fernando De La Rosa MD Work Phone: [facility] Gynecologic Oncology Comment on above: Post-operative state (Primary Dx); Stage I adenocarcinoma of cervix (CMS/HCC) (HCC) Start: 12-26-2022 Telephone encounter Shala crump MASS SPECTROSCOPIST - INTERVENTIONAL TECHNOLOGIST Work Phone: [facility] [place] RESEARCH ANIMAL FACILITY SUPERVISOR Oncology Comment on above: medication refill (P atient needing refill on medication) Start: 12-24-2022 Telephone encounter Avel Dobson [facility] RESEARCH ANIMAL FACILITY SUPERVISOR Oncology Comment on above: OTHER Start: 12-24-2022 End: 12-24-2022 ambulatory SHALA XIONG [facility] Start: 12-24-2022 End: 12-24-2022 Postop follow up visit related to original px Shala Xiong MASS SPECTROSCOPIST - INTERVENTIONAL TECHNOLOGIST Work Phone: [facility] [place] RESEARCH ANIMAL FACILITY SUPERVISOR Oncology Comment on above: Post-operative state (Primary Dx) Start: 12-23-2022 End: 12-24-2022 Emergency department patient visit [facility] Start: 12-23-2022 Telephone encounter Fernando De La Rosa MD Work Phone: [facility] [place] RESEARCH ANIMAL FACILITY SUPERVISOR Oncology Start: 12-17-2022 End: 12-20-2022 Evaluation and management of inpatient [facility] Start: 12-13-2022 End: 12-13-2022 ambulatory IDALMIS COBB DO-FACOG Facility:[id number] Start: 12-11-2022 End: 12-11-2022 ambulatory [facility] Start: 12-06-2022 End: 12-07-2022 ambulatory [facility] Start: 12-06-2022 End: 12-06-2022 Subsequent hospital visit by physician Marlen Preciado MD Work Phone: [facility] Comment on above: Malignant neoplasm o f endocervix (HCC) Start: 11-28-2022 End: 11-29-2022 ambulatory IDALMIS COBB DO-FACOG Facility:[id number] Start: 11-25-2022 Telephone encounter Fernando De La Rosa MD Work Phone: [facility] RESEARCH ANIMAL FACILITY SUPERVISOR Oncology Comment on above: surgery scheduling ( Scheduled at [facility]) Start: 11-22-2022 End: 11-22-2022 ambulatory IDALMIS [facility] Start: 11-22-2022 End: 11-22-2022 Office outpatient new 45 minutes Fernando De La Rosa MD Work Phone: [facility] RESEARCH ANIMAL FACILITY SUPERVISOR Oncology Comment on above: 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) Start: 11-21-2022 ambulatory 837 NO [facility] Facility:[id number] Start: 11-15-2022 End: 11-16-2022 ambulatory IDALMIS Rodriguez JIMBO DO-FACOG Facility:[id number] Start: 10-09-2022 End: 10-10-2022 ambulatory IDALMIS COBB DO-FACOG Facility:[id number] Start: 2022 End: 2022 Emergency department patient visit CODY WINKLER MD Facility:[id number] Start: 05-03-2016 End: 05-03-2016 Emergency department patient visit [facility] Facility:[facility] Procedures Date Procedure Procedure Detail Performing Clinician Start: 03-25-2024 Follow-up visit Follow Up COREY THORPE Start: 03-22-2024 Ct abdomen & pelvis w/contrast material Chang Thorpe MD Work Phone: Start: 03-21-[address] atten uation skull base mid-thigh Fernando De La Rosa MD Work Phone: Start: 03-04-2023 Comprehensive metabo lic panel Shala Xiong APRN - INTERVENTIONAL TECHNOLOGIST Work Phone: Start: 02-26-2023 Dup-scan xtr veins unilateral/limited study Shala Xiong MASS SPECTROSCOPIST - INTERVENTIONAL TECHNOLOGIST Work Phone: Start: 02-19-2023 Dup-scan xtr veins unilateral/limited study Shala Xiong MASS SPECTROSCOPIST - INTERVENTIONAL TECHNOLOGIST Work Phone: Start: 02-18-2023 Comprehensive metabo lic panel Shala Xiong MASS SPECTROSCOPIST - INTERVENTIONAL TECHNOLOGIST Work Phone: Start: 02-17-2023 Culture bacterial quanttative colony count urine Shala Xiong MASS SPECTROSCOPIST - INTERVENTIONAL TECHNOLOGIST Work Phone: Start: 02-11-2023 Comprehensive metabo lic panel Shala Xiong MASS SPECTROSCOPIST - INTERVENTIONAL TECHNOLOGIST Work Phone: Start: 12-24-2022 Follow-up visit Follow-up SHALA XIONG Start: 12-24-2022 Computed tomography of abdomen and pelvis with intravenous contrast Plan of Treatment Date Care Activity Detail Author Start: 2041 Zoster Vaccines (1 of 2) Zoste r Vaccines (1 of 2) [facility] [employer] Start: 11-27-2028 Screening for malign ant neoplasm of cervix [facility] Start: 11-27-2024 Screening for malign ant neoplasm of cervix Cervical Cancer Screening [facility] Start: 10-15-2024 End: 10-15-2024 ambulatory 10/15/2024 4:30 PM EST In[facility] [address] [place] [address] [facility] INJECTIONS Hematology/Oncology Comment on above: HPV INJECTIONS Start: 07-11-2024 Influenza vaccination Influenz a Vaccine (Season Ended) [facility] Start: 06-18-2024 End: 06-18-2024 ambulatory 06/18/2024 4:30 PM EDT [facility] Hematology[facility]Oncology [address] [place] [address] HPV INJECTIONS Hematology/Oncology Comment on above: HPV INJECTIONS Start: 04-29-2024 End: 04-29-2024 ambulatory 04/29/2024 4:00 PM EDT [facility] Gynecology [address] [place] [address] Chang Thorpe MD [address] [place] [address] FU Gynecology Comment on above: FU Start: 04-27-2024 End: 04-27-2024 ambulatory 04/27/2024 2:00 PM EDT [facility] Gynecology [address] [place] [address] Chang Thorpe MD [address] [place] [address] FU Gynecology Comment on above: FU Start: 04-16-2024 End: 04-16-2024 ambulatory 04/16/2024 4:30 PM EDT Infusion Center Hematology/Oncology [address] [place] [id number] HPV INJECTIONS Hematology/Oncology Comment on above: HPV INJECTIONS Start: 03-25-2024 End: 03-25-2024 ambulatory 03/25/2024 11:45 AM EDT Visit (SP) Office Gynecology [address] [place] [address] Chang Thorpe MD [address] [place] [address] Gynecology Comment on above: FU REVIEW CT Start: 11-10-2023 Behavioral Health Screening Behavioral Health Screening [facility] Start: 11-10-2023 Depression Assessment Depression Ass essment [facility] Start: 07-31-2023 End: 07-31-2023 Patient encounter procedure 07/31/2023 9:30 AM EDT Office Visit [facility] Gynecologic Oncology [address] [facility] [address] [place] [address] Shala Xiong APRN - INTERVENTIONAL TECHNOLOGIST [address] [facility] [address] [place] [address] [facility] Start: 07-11-2023 Covid-19 Vaccine ( season) Covid-19 Vaccine ( season) [facility] Start: 07-11-2023 Influenza vaccination [facility] Start: 05-07-2023 End: 05-07-2024 Follicle stimulating hormone Follicle stimulating hormone Lab Routine Menopausal symptom Expected: 05/07/2023 (Approximate), Expires: 05/07/2024 [facility] Comment on above: Expected: 05/07/2023 (Approximate), Expires: 05/07/2024 Start: 05-07-2023 End: 05-07-2024 Urinalysis complete panel - Urine Urinalysis with reflex microscopic Lab Routine Cystitis Expected: 05/07/2023 (Approximate), Expires: 05/07/2024 [facility] Work Phone: Comment on above: Expected: 05/07/2023 (Approximate), Expires: 05/07/2024 Start: 04-30-2023 End: 04-30-2023 Patient encounter procedure 04/30/2023 8:30 AM EDT Office Visit [facility] Gynecologic Oncology [address] [facility] [address] [place] [id number] Fernando De La Rosa MD [address] [facility] [place], [place] [id number] [facility] On[facility] Start: 04-14-2023 End: 04-14-2023 Patient encounter procedure 04/14/2023 Appointment Radiation Oncology Jayy Ocampo MD [address], [place] [id number] [facility] Start: 04-02-2023 End: 04-02-2023 Patient encounter procedure 04/02/2023 Office Visit Gynecologic Oncology Fernando De La Rosa MD [address] [facility] [place], [place] [id number] [facility] Gynecologic Oncology Start: 03-21-2023 End: 03-21-2023 Patient encounter procedure 03/21/2023 Appointment Radiology [facility] Start: 03-20-2023 End: 03-20-2023 Patient encounter procedure 03/20/2023 Appointment Radiation Oncology [facility] Start: 03-19-2023 End: 03-19-2023 Patient encounter procedure [facility] Start: 03-18-2023 End: 03-18-2023 Patient encounter procedure [facility] Start: 03-17-2023 End: 03-17-2023 Patient encounter procedure [facility] Start: 03-14-2023 End: 03-14-2023 Patient encounter procedure [facility] Start: 03-14-2023 End: 03-14-2023 ambulatory [facility] Start: 03-13-2023 End: 03-13-2023 Patient encounter procedure 03/13/2023 Appointment Radiation Oncology [facility] Start: 03-12-2023 End: 03-12-2023 Patient encounter procedure 03/12/2023 Appointment Radiation Oncology [facility] Start: 03-12-2023 End: 03-12-2023 ambulatory 03/12/2023 Infusion Infusion Therapy Fernando De La Rosa MD [address] [facility] [place], [place] [id number] [facility] Start: 03-11-2023 End: 03-11-2023 Patient encounter procedure 03/11/2023 Appointment Radiation Oncology [facility] Start: 03-10-2023 End: 03-10-2023 Patient encounter procedure 03/10/2023 Appointment Radiation Oncology Jayy Ocampo MD [address] [place] [address] [facility] Start: 03-07-2023 End: 03-07-2023 Patient encounter procedure 03/07/2023 Appointment Radiation Oncology [facility] Start: 03-06-2023 End: 03-06-2023 Patient encounter procedure 03/06/2023 Appointment Radiation Oncology [facility] Start: 03-05-2023 End: 03-05-2023 Patient encounter procedure 03/05/2023 Appointment Radiation Oncology [facility] Start: 03-04-2023 End: 03-04-2023 Patient encounter procedure 03/04/2023 Appointment Radiation Oncology [facility] Start: 03-04-2023 End: 03-04-2023 ambulatory 03/04/2023 Infusion Infusion Therapy Fernando De La Rosa MD [address] [facility] [place] [address] [facility] Start: 03-03-2023 End: 03-03-2023 Patient encounter procedure 03/03/2023 Appointment Radiation Oncology Jayy Ocampo MD [address] [place] [address] [facility] Start: 02-28-2023 End: 02-28-2023 Patient encounter procedure 02/28/2023 Appointment Radiation Oncology [facility] Start: 02-27-2023 End: 02-27-2023 Patient encounter procedure [facility] Start: 02-26-2023 End: 02-26-2023 Patient encounter procedure [facility] Start: 02-25-2023 End: 02-25-2023 Patient encounter procedure [facility] Start: 02-25-2023 End: 02-25-2023 ambulatory 02/25/2023 Infusion Infusion Therapy Fernando De La Rosa MD [address] [facility] [place] [address] [facility] Start: 02-24-2023 End: 02-24-2023 Patient encounter procedure 02/24/2023 Appointment Radiation Oncology Jayy Ocampo MD [address] [place] [address] [facility] Start: 02-21-2023 End: 02-21-2023 Patient encounter procedure 02/21/2023 Appointment Radiation Oncology [facility] Start: 02-20-2023 End: 02-20-2023 Patient encounter procedure 02/20/2023 Appointment Radiation Oncology [facility] Start: 02-19-2023 End: 02-19-2023 Patient encounter procedure 02/19/2023 Appointment Radiation Oncology [facility] Start: 02-18-2023 End: 02-18-2023 Patient encounter procedure 02/18/2023 Appointment Radiation Oncology [facility] Start: 02-18-2023 End: 02-18-2023 ambulatory 02/18/2023 Infusion Infusion Therapy Fernando De La Rosa MD [address] [facility] [place] [address] [facility] Start: 02-17-2023 End: 02-17-2023 Patient encounter procedure 02/17/2023 Appointment Radiation Oncology Jayy Ocampo MD [address] [place] [address] [facility] Start: 02-14-2023 End: 02-14-2023 ambulatory 02/14/2023 Infusion Infusion Therapy Fernando De La Rosa MD [address] [facility] [place] [address] [facility] Start: 02-14-2023 End: 02-14-2023 Patient encounter procedure 02/14/2023 Appointment Radiation Oncology [facility] Start: 02-13-2023 End: 02-13-2023 Patient encounter procedure [facility] Oncology Start: 02-12-2023 End: 02-12-2023 Patient encounter procedure [facility] Start: 02-11-2023 End: 02-11-2023 Patient encounter procedure 02/11/2023 Appointment Radiation Oncology [facility] Start: 02-11-2023 End: 02-11-2023 ambulatory 02/11/2023 Infusion Infusion Therapy Fernando De La Rosa MD [address] [facility] [place] [address] [facility] Start: 02-10-2023 End: 02-10-2023 Patient encounter procedure 02/10/2023 Appointment Radiation Oncology Jayy Ocampo MD [address] [place] [address] [facility] Start: 02-07-2023 End: 02-07-2023 Patient encounter procedure 02/07/2023 Appointment Radiation Oncology [facility] Start: 02-06-2023 End: 02-06-2023 Patient encounter procedure 02/06/2023 Appointment Radiation Oncology [facility] Start: 02-05-2023 End: 02-05-2023 Patient encounter procedure 02/05/2023 Appointment Radiation Oncology [facility] Start: 02-04-2023 End: 02-04-2023 Patient encounter procedure 02/04/2023 Appointment Radiation Oncology [facility] Start: 02-04-2023 End: 02-04-2023 ambulatory 02/04/2023 Infusion Infusion Therapy Fernando De La Rosa MD [address] [place] [address] [facility] Start: 02-03-2023 End: 02-03-2023 Patient encounter procedure 02/03/2023 Appointment Radiation Oncology Jayy Ocampo MD [address] [place] [address] [facility] Start: 01-30-2023 End: 01-30-2023 Patient encounter procedure [facility] Start: 01-16-2023 End: 01-16-2023 Patient encounter procedure 01/16/2023 Appointment Radiation Oncology Shanell Fofana MD [address] [facility] [address] [place] [address] [facility] Start: 01-15-2023 End: 01-15-2023 Patient encounter procedure 01/15/2023 Appointment Radiation Oncology Jayy Ocampo MD [address] [place], [place] [id number] [facility] Start: 01-02-2023 End: 01-02-2023 Patient encounter procedure 01/02/2023 Appointment Radiation Oncology Jayy Ocampo MD [address] [place] [address] [facility] Start: 01-01-2023 End: 01-01-2023 Patient encounter procedure [facility] [employer]IM[employer] FACILITY SUPERVISOR Oncology Comment on above: Post-operative state (Primary Dx) Start: 12-30-2022 End: 12-30-2022 Patient encounter procedure 12/30/2022 Office Visit Gynecologic Oncology Fernando De La Rosa MD [address] [place] [address] [facility] [employer]EARCH ANIMAL FACILITY SUPERVISOR Oncology Start: 12-17-2022 End: 12-17-2022 Admission to same day surgery center 12/17/2022 Surgery Procedural Fernando De La Rosa MD [address] [facility] [place], [place] [phone] RADICAL HYSTERECTOMY WITH BILATERAL SALPINGECTOMY, BILATERAL PELVIC SENTINEL LYMPH NODE BIOPSY WITH ICG PROTOCOL [69626 (CPT )] [facility] MAIN OR Comment on above: RADICAL HYSTERECTOMY WITH BILATERAL SALPINGECTOMY, BILATERAL PELVIC SENTINEL LYMPH NODE BIOPSY WITH ICG PROTOCOL [49780 (CPT )] Start: 12-17-2022 End: 12-17-2022 Inj radioactive tracer for id of sentinel node [facility] Operating Room Start: 12-17-2022 End: 12-17-2022 Laps bi tot pel lmphadec & linda-aortic lymph bx [address] [facility] Operating Room Start: 12-17-2022 End: 12-17-2022 Rad abdl hysterectomy w/bi pelvic lmphadenectomy [facility] Operating Room Start: 12-17-2022 Subsequent hospital visit by physician 12/17/2022 Hospital Encounter Procedural Fernando De La Rosa MD [address] [place] [address], [address] [place] [address] [facility] MAIN OR Start: 12-11-2022 End: 12-11-[address] [facility] Pre-Admit Testing Start: 12-06-2022 End: 12-06-2022 Patient encounter procedure 12/06/[address] [facility] PET Start: 11-22-2022 End: 11-22-2023 PET+CT Bone from skull base to mid-thigh W [id number] IV PET/CT skull base to mid thigh Imaging Routine Malignant neoplasm of endocervix (HCC) Expected: 11/22/2022, Expires: 11/22/2023 [facility] Work Phone: Comment on above: Expected: 11/22/2022 , Expires: 11/22/2023 Start: 07-11-2022 Influenza vaccination Influenza Vacc ine (#1) [facility] Start: 2021 Screening for malign ant neoplasm of cervix [facility] Start: 2012 Screening for malign ant neoplasm of cervix Pap Smear [facility] Start: 2010 DTaP/Tdap/Td Vaccine s (1 - Tdap) DTaP/Tdap/Td Vaccines (1 - Tdap) [facility] Start: 2010 Hepatitis B Vaccine (1 of 3 - 19+ 3-dose series) Hepatitis B Vaccine (1 of 3 - 19+ 3-dose series) [facility] Start: 2010 Urine microalbumin profile DTaP,Tdap,Td Vaccine (1 - Tdap) [facility] Start: 2010 Zoster Vaccines (1 of 2) Zoste r Vaccines (1 of 2) [facility] Start: 2009 Diabetes mellitus screening Diabetes Screening [facility] Start: 2009 Hepatitis C screening Hepatitis C Sc reening [facility] [facility] Start: 2009 HIV screening HIV Screening [facility] Start: 2003 Depression Screening Depression Scre ening [facility] Start: 1997 Pneumococcal vaccination Pneum ococcal Vaccine (1 of 2 - PCV) [facility] Start: 1997 Pneumococcal Vaccine : Pediatrics (0 to 5 Years) and At-Risk Patients (6 to 64 Years) (1 - PCV) Pneumococcal Vaccine: Pediatrics (0 to 5 Years) and At-Risk Patients (6 to 64 Years) (1 - PCV) [facility] Start: 1992 MMR Vaccines (1 of 1 - Standard series) MMR Vaccines (1 of 1 - Standard series) [facility] Start: 1992 Varicella vaccination Varicell a Vaccines (1 of 2 - 2-dose childhood series) [facility] Start: 03-31-1992 COVID-19 Vaccine (#1) COVID-19 Vacci ne (#1) [facility] Start: 1991 Hepatitis B Vaccine (1 of 3 - 3-dose series) Hepatitis B Vaccine (1 of 3 - 3-dose series) [facility] Start: 1991 Hepatitis B Vaccines (1 of 3 - 3-dose series) Hepatitis B Vaccines (1 of 3 - 3-dose series) [facility] Start: 1991 HIV screening HIV Screening [facility] Start: 1991 Lipid panel Lipid Panel [facility] End: 12-29-2024 [facility]ULT [place] [facility] [employer] [place]ULT [place] [facility] [facility] Endoscopy Routine Pelvic floor dysfunction 1 Occurrences starting 12/29/2023 until 12/29/2024 [facility] [place] Work Phone: Comment on above: 1 Occurrences starti ng 12/29/2023 until 12/29/2024 CT Chest W contrast IV CT CHEST W IVCON Radiology Routine Encounter for follow-up surveillance of cervical cancer 03/22/2024 9:53 AM EDT [facility] [place] Work Phone: End: 01-16-2023 CT Sim WO IDEA SPHERE [employer] [facility] Work Phone: Comment on above: Once for 1 Occurrenc es starting 01/16/2023 until 01/16/2023 End: 03-03-2024 Magnesium [Mass/volume] in Serum or Plasma Magnesium Lab Routine Malignant neoplasm of endocervix (HCC) Once a week for 99 Occurrences starting 03/03/2023 until 03/03/2024 [facility] Work Phone: Comment on above: Once a week for 99 O ccurrences starting 03/03/2023 until 03/03/2024 OUTSIDE PROCEDURE SCAN OUTSIDE P ROCEDURE SCAN Procedures Ordered: 03/21/2023 [facility] Comment on above: Ordered: 03/21/2023 Patient Education ED Hematoma ED Post Op Wound Check, Pain ED Vomiting (Adult) [facility] Work Phone: Patient referral [facility] Work Phone: End: 12-06-2022 PET+CT Bone from skull base to mid-thigh W [id number] IV PET/CT skull base to mid thigh Imaging Routine Malignant neoplasm of endocervix (HCC) Once for 1 Occurrences starting 12/06/2022 until 12/06/2022 [facility] [employer] Work Phone: Comment on above: Once for 1 Occurrenc es starting 12/06/2022 until 12/06/2022 [facility] Payers Date Payer Category Payer Self-pay 2020 Medicaid [id number] 2020 Unknown [id number] 2008 Unknown 1991 Unknown [id number] 2.16.8 [id number] 1991 Unknown [id number] 2.16.8 [id number] 1991 Unknown [id number] 2.16.8 [id number] 1991 Unknown [id number] 2.16.8 [id number] 1991 Unknown [id number] 2.16.8 [id number] 1991 Unknown [id number] 2.16.8 [id number] 1991 Unknown [id number] 2.16.8 [id number] 1991 Unknown [id number] 2.16.8 [id number] 1991 Unknown [id number] 2.16.8 [id number] 1991 Unknown [id number] 2.16.8 [id number] Unknown [id number] Unknown [id number] 2.16.8 [id number] Unknown [id number] 2.16.8 [id number] Unknown [id number] 2.16.8 [id number] Social History Date Type Detail Facility Start: 12-23-2022 Tobacco smoking stat [facility] Unknown if ever smoked [facility] Start: 1990 Sex Assigned At Female [facility] Start: 12-11-2022 End: 01-02-2023 Tobacco smoking status NHIS Smokes tobacco daily [facility] History of tobacco use Cigarette Smoker [facility] Start: 12-11-2022 End: 01-02-2023 Cigarettes smoked current (pack per day) - Reported 0.5 [facility] Start: 01-02-2023 Tobacco use and exposure Smoke less tobacco non-user [facility] Start: 01-02-2023 End: 02-25-2023 Alcohol intake Ex-drinker (finding) [facility] Start: 12-17-2022 History SDOH Transpo rt Med 2 [facility] Start: 12-17-2022 History SDOH Housing Places Lived 1 [facility] Start: 1990 Sex Assigned At Not on file [facility] Start: 11-12-2022 End: 05-07-2023 Exposure to SARS-CoV-2 (event) Not sure [facility] Start: 04-24-2023 End: 05-07-2023 Alcohol intake Current drinker of alcohol (finding) [facility] Start: 04-24-2023 End: 11-27-2023 Tobacco use panel [facility] In the past 12 month s, has lack of transportation kept you from medical appointments or from getting medications? No [facility] In the past 12 month s, was there a time when you were not able to pay the mortgage or rent on time? No [facility] Start: 04-24-2023 Alcohol Comment Rarely [facility] Start: 11-19-2023 End: 03-25-2024 Alcohol intake Current non-drinker of alcohol (finding) [facility] Start: 11-22-2022 End: 12-24-2022 Alcohol intake Lifetime non-drinker (finding) [facility] NEGATED: Highlighted row [facility] Clinical Notes 2022 to 04-27-2024 Chang Thorpe MD - 04/27/2024 2:00 PM EDTTelephone Encounter - Brandan Hollis APRN.CNP - 04/03/2024 8:48 AM EDTTelephone Encounter - Clarita Fowler - 03/25/2024 2:25 PM EDT Note Date & Type Note Facility 04-27-2024 History of Present illness Narrative TELEVISIT PROGRESS NOTE I have communicated my name and active licensure. The patient's identity and physical location were verified at the time of this visit. Either the patient or their legal claims service representative has been informed of the risks and benefits of -- and alternatives to -- treatment through a remote evaluation and consents to proceed with the evaluation remotely. This is a telephone encounter initiated for an established patient, parent or guardian not originating from a related Evaluation & Management service provided within the previous 7 days nor leading to an Evaluation & Management service or procedure within the next 24 hours or soonest available appointment. Patient name and birthday verified: Yes Location of patient: out of home Persons Present: patient DATE OF SERVICE: 04/27/2024 PROBLEM: Corey Perla presents for follow up HPI: Ms. Perla is a 33 year old G0 female who has a past medical history of Kidney stone and Pyelonephritis. She had multiple abnormal pap smears and positive HPV. She underwent a hysteroscopy, D&C, biopsy of the cervix to include ECC shows an invasive endocervical adenocarcinoma in November 2022. In December 2022 she had a radical hysterectomy with bilateral salpingectomy and sentinel lymph node biopsy. Pathology resulted in endocervix with invasive well differentiated adenocarcinoma. She underwent 50.4 Gy / 50.4 Gy (28 of 28 fractions) of radiation to the pelvic bed and 5 weeks of Cisplatin, completing in March 2023. She has not followed up since April 2023. She states that she lost her insurance and would like to re-establish care with [facility]. Last office visit: 11/27/23 IMAGING: PET SCAN- OSH 03/21/2023 IMPRESSION: No evidence of residual or recurrent FDG avid malignancy is identified. 11/27/23 CT CHEST ABDOMEN AND PELVIS WITH IV CONTRAST IMPRESSION: No acute pulmonary process is identified. Tiny pulmonary nodules, measuring up to 3 mm in size. Given history of cervical carcinoma, continued interval surveillance is recommended. Otherwise, no convincing CT evidence for metastatic disease within the chest. No lymphadenopathy is seen within the chest. Mild dependent atelectasis. Status post hysterectomy. No convincing CT evidence for metastatic disease within the abdomen or pelvis. Incidental note is a jejunal intussusception within the left abdomen, typically a transient phenomenon. No associated bowel obstruction. 03/22/2024 CT Chest/Abd/Pelvis: Few tiny (less than 3 mm) pulmonary nodules are stable from prior. No new enlarging pulmonary nodule. No thoracic lymphadenopathy. STABLE EXAM. NO METASTATIC DISEASE IN THE ABDOMEN OR PELVIS. LABS: Component 11/27/2023 Bacterial vaginosis Positive for bacterial vaginosis (A) PATHOLOGY: 12/17/2022 OSH Final Diagnosis A. SENTINEL LYMPH NODE, RIGHT PELVIC, DISSECTION - -THREE LYMPH NODES NEGATIVE FOR METASTATIC CARCINOMA (0/3) B. 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 -PROLIFERATIVE PHASE ENDOMETRIUM -UNREMARKABLE BILATERAL FALLOPIAN TUBES -UNREMARKABLE PARAMETRIUM -TWO LYMPH PARAMETRIAL NODES NEGATIVE FOR METASTATIC CARCINOMA (0/2) -NEGATIVE RESECTION MARGINS. C. SENTINEL LYMPH NODE, LEFT PELVIC, DISSECTION - -FIVE LYMPH NODES NEGATIVE FOR METASTATIC CARCINOMA (0/5) PAST SURGICAL HISTORY Procedure Laterality Date PAST SURGICAL HISTORY OF hysterectomy bilateral salpingectomy 12/2022 PAST MEDICAL HISTORY Diagnosis Date Cervical cancer (HCC) 11/2022 Kidney stone Pyelonephritis FAMILY HISTORY Problem Relation Age of Onset Breast Cancer Mother Family history of breast, ovarian, uterine or colon cancer: Yes, mom with breast diagnosed 10/2023 Family history of VTE: No SOCIAL HISTORY Social History Tobacco Use Smoking status: Every Day Packs/day: 0.5 Types: Cigarettes Substance Use Topics Alcohol use: No Drug use: No Marital Status: Single HEALTH MAINTENANCE: Last mammogram: none Last colonoscopy: none Last pap: 11/27/23 in process SUBJECTIVE/INTERVAL HISTORY: Corey Perla presents to discuss estrogen replacement therapy with was prescribed at last visit. 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 She continues to have severe hot flashes that is being exacerbated by the hot weather. 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 We discussed alternative option for oral estrogen replacement with estradiol. I would still prefer patch replacement for the intermediate but will rx estrace 1mg daily until can figure out patch copay. PLAN: Rx estrace 1 mg daily Follow-up in 6 months with surveillance visit with Dr. Maldonado [facility] in [place] per patient request Continue HPV vaccines Chang Thorpe MD 5 minutes discussing plan of care, rx med and coordinating follow up documented in this encounter [facility] 04-27-2024 Note HNO ID: [id number] Author: CHANG THORPE MD Service: ? Author Type: Physician Type: Progress Notes Filed: 04/27/2024 15:48 Note Text: TELEVISIT PROGRESS NOTE I have communicated my name and active licensure. The patient's identity and physical location were verified at the time of this visit. Either the patient or their legal claims service representative has been informed of the risks and benefits of -- and alternatives to -- treatment through a remote evaluation and consents to proceed with the evaluation remotely. This is a telephone encounter initiated for an established patient, parent or guardian not originating from a related Evaluation AND Management service provided within the previous 7 days nor leading to an Evaluation AND Management service or procedure within the next 24 hours or soonest available appointment. Patient name and birthday verified: Yes Location of patient: out of home Persons Present: patient DATE OF SERVICE: 04/27/2024 PROBLEM: Corey Perla presents for follow up HPI: Ms. Perla is a 33 year old G0 female who has a past medical history of Kidney stone and Pyelonephritis. She had multiple abnormal pap smears and positive HPV. She underwent a hysteroscopy, DANDC, biopsy of the cervix to include ECC shows an invasive endocervical adenocarcinoma in November 2022. In December 2022 she had a radical hysterectomy with bilateral salpingectomy and sentinel lymph node biopsy. Pathology resulted in endocervix with invasive well differentiated adenocarcinoma. She underwent 50.4 Gy / 50.4 Gy (28 of 28 fractions) of radiation to the pelvic bed and 5 weeks of Cisplatin, completing in March 2023. She has not followed up since April 2023. She states that she lost her insurance and would like to re-establish care with [facility]. Last office visit: 11/27/23 IMAGING: PET SCAN- OSH 03/21/2023 IMPRESSION: No evidence of residual or recurrent FDG avid malignancy is identified. 11/27/23 CT CHEST ABDOMEN AND PELVIS WITH IV CONTRAST IMPRESSION: No acute pulmonary process is identified. Tiny pulmonary nodules, measuring up to 3 mm in size. Given history of cervical carcinoma, continued interval surveillance is recommended. Otherwise, no convincing CT evidence for metastatic disease within the chest. No lymphadenopathy is seen within the chest. Mild dependent atelectasis. Status post hysterectomy. No convincing CT evidence for metastatic disease within the abdomen or pelvis. Incidental note is a jejunal intussusception within the left abdomen, typically a transient phenomenon. No associated bowel obstruction. 03/22/2024 CT Chest/Abd/Pelvis: Few tiny (less than 3 mm) pulmonary nodules are stable from prior. No new enlarging pulmonary nodule. No thoracic lymphadenopathy. STABLE EXAM. NO METASTATIC DISEASE IN THE ABDOMEN OR PELVIS. LABS: Component 11/27/2023 Bacterial vaginosis Positive for bacterial vaginosis (A) PATHOLOGY: 12/17/2022 OSH Final Diagnosis A. SENTINEL LYMPH NODE, RIGHT PELVIC, DISSECTION - -THREE LYMPH NODES NEGATIVE FOR METASTATIC CARCINOMA (0/3) B. 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 -PROLIFERATIVE PHASE ENDOMETRIUM -UNREMARKABLE BILATERAL FALLOPIAN TUBES -UNREMARKABLE PARAMETRIUM -TWO LYMPH PARAMETRIAL NODES NEGATIVE FOR METASTATIC CARCINOMA (0/2) -NEGATIVE RESECTION MARGINS. C. SENTINEL LYMPH NODE, LEFT PELVIC, DISSECTION - -FIVE LYMPH NODES NEGATIVE FOR METASTATIC CARCINOMA (0/5) PAST SURGICAL HISTORY Procedure Laterality Date PAST SURGICAL HISTORY OF hysterectomy bilateral salpingectomy 12/2022 PAST MEDICAL HISTORY Diagnosis Date Cervical cancer (HCC) 11/2022 Kidney stone Pyelonephritis FAMILY HISTORY Problem Relation Age of Onset Breast Cancer Mother Family history of breast, ovarian, uterine or colon cancer: Yes, mom with breast diagnosed 10/2023 Family history of VTE: No SOCIAL HISTORY Social History Tobacco Use Smoking status: Every Day Packs/day: 0.5 Types: Cigarettes Substance Use Topics Alcohol use: No Drug use: No Marital Status: Single HEALTH MAINTENANCE: Last mammogram: none Last colonoscopy: none Last pap: 11/27/23 in process SUBJECTIVE/INTERVAL HISTORY: Corey Perla presents to discuss estrogen replacement therapy with was prescribed at last visit. 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 She continues to have severe hot flashes that is being exacerbated by the hot weather. 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 [facility] 04-03-2024 Telephone encounter Note had previously discussed HPV vaccination series. Can you please see if patient plans to get here at [place] versus another office? Thanks so much [facility] Work Phone: 04-03-2024 Miscellaneous Notes had previously discussed HPV vaccination series. Can you please see if patient plans to get here at [place] versus another office? Thanks so much documented in this encounter [facility] 03-25-2024 Telephone encounter Note [facility] and schedule appt with Dr. Esha Fowler 03/25/24 [facility] 03-25-2024 Miscellaneous Notes [facility] and schedule appt with Dr. Esha Fowler 03/25/24 documented in this encounter [facility] 03-25-2024 History of Present illness Narrative DATE OF SERVICE: 03/25/2024 PROBLEM: Corey Perla presents for CT scan review. HPI: Ms. Perla is a 33 year old G0 female who has a past medical history of Kidney stone and Pyelonephritis. She had multiple abnormal pap smears and positive HPV. She underwent a hysteroscopy, D&C, biopsy of the cervix to include ECC shows an invasive endocervical adenocarcinoma in November 2022. In December 2022 she had a radical hysterectomy with bilateral salpingectomy and sentinel lymph node biopsy. Pathology resulted in endocervix with invasive well differentiated adenocarcinoma. She underwent 50.4 Gy / 50.4 Gy (28 of 28 fractions) of radiation to the pelvic bed and 5 weeks of Cisplatin, completing in March 2023. She has not followed up since April 2023. She states that she lost her insurance and would like to re-establish care with [facility]. Last office visit: 11/27/23 IMAGING: PET SCAN- OSH 03/21/2023 IMPRESSION: No evidence of residual or recurrent FDG avid malignancy is identified. 11/27/23 CT CHEST ABDOMEN AND PELVIS WITH IV CONTRAST IMPRESSION: No acute pulmonary process is identified. Tiny pulmonary nodules, measuring up to 3 mm in size. Given history of cervical carcinoma, continued interval surveillance is recommended. Otherwise, no convincing CT evidence for metastatic disease within the chest. No lymphadenopathy is seen within the chest. Mild dependent atelectasis. Status post hysterectomy. No convincing CT evidence for metastatic disease within the abdomen or pelvis. Incidental note is a jejunal intussusception within the left abdomen, typically a transient phenomenon. No associated bowel obstruction. 03/22/2024 CT Chest/Abd/Pelvis: Few tiny (less than 3 mm) pulmonary nodules are stable from prior. No new enlarging pulmonary nodule. No thoracic lymphadenopathy. STABLE EXAM. NO METASTATIC DISEASE IN THE ABDOMEN OR PELVIS. LABS: Component 11/27/2023 Bacterial vaginosis Positive for bacterial vaginosis (A) PATHOLOGY: 12/17/2022 OSH Final Diagnosis A. SENTINEL LYMPH NODE, RIGHT PELVIC, DISSECTION - -THREE LYMPH NODES NEGATIVE FOR METASTATIC CARCINOMA (0/3) B. 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 -PROLIFERATIVE PHASE ENDOMETRIUM -UNREMARKABLE BILATERAL FALLOPIAN TUBES -UNREMARKABLE PARAMETRIUM -TWO LYMPH PARAMETRIAL NODES NEGATIVE FOR METASTATIC CARCINOMA (0/2) -NEGATIVE RESECTION MARGINS. C. SENTINEL LYMPH NODE, LEFT PELVIC, DISSECTION - -FIVE LYMPH NODES NEGATIVE FOR METASTATIC CARCINOMA (0/5) PAST SURGICAL HISTORY Procedure Laterality Date PAST SURGICAL HISTORY OF hysterectomy bilateral salpingectomy 12/2022 PAST MEDICAL HISTORY Diagnosis Date Cervical cancer (HCC) 11/2022 Kidney stone Pyelonephritis FAMILY HISTORY Problem Relation Age of Onset Breast Cancer Mother Family history of breast, ovarian, uterine or colon cancer: Yes, mom with breast diagnosed 10/2023 Family history of VTE: No SOCIAL HISTORY Social History Tobacco Use Smoking status: Every Day Packs/day: 0.5 Types: Cigarettes Substance Use Topics Alcohol use: No Drug use: No Marital Status: Single HEALTH MAINTENANCE: Last mammogram: none Last colonoscopy: none Last pap: 11/27/23 in process SUBJECTIVE/INTERVAL HISTORY: Corey Perla is doing well. No new complaints since last visit. No vaginal bleeding. She presents to review CT scan. She has not been using the estrogen patch, it was too expensive to pick-up from pharmacy. She has now moved over an hour away to live with her sister. Her abdominal pain is improved and only intermittent now. 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 IB3 adenocarcinoma cervix (2018) diagnosed Sep 2022 s/p RTH, BS, right SLND, left pelvic lymphadenectomy with Dr Fernando De La Rosa at [facility] in [place] on 12/17/2022 with tumor size measuring 4.8 cm, positive LVSI, deep 1/3 invasion, negative margins, negative parametrium and negative nodes on final pathology. She was treated with adjuvant concurrent pelvic radiation with radiosensitizing cisplatin, completed on 04/02/2023. CT scans reviewed today - KATHI KATHI on exam last week Pap smear 11/2023 LSIL, HPV negative GI symptoms: RLQ pain, abdominal distention, diarrhea, improving symptoms S.p GI consult with no intervention recommended. SubCM pulm nodules: Reviewed imaging from 03/22/2024 today which were stable from November Can consider 6-12 month follow up imaging Vasomotor symptoms Iatrogenic menopause s.p pelvic RT Op note mentions bilateral ovaries pexied s/p hysterectomy Discussed HRT with plans for estrogen patch 0.075 sent to pharmacy at last visit, badillo was too high. Sent different brand Ioana today. 4. History of HPV 16+ Encouraged HPV vaccines, patient is agreeable ordered them today. Smoking cessation. PLAN: Prescribed estrogen patch to be used twice a week - patient to call of prohibitive copay Follow-up in 6 months with surveillance visit with Dr. Maldonado [facility] in [place] per patient request Ordered HPV vaccines SCRIBE ATTESTATION: By signing my name below, I,Deanne Reyes [employer]ator Systems Director attest that this documentation has been prepared under the direction and in the presence of Chang Thorpe MD Electronically Signed: Jason Avina. March 25, 2024 12:34 PM. Chang Thorpe MD Medical Decision Making: Problems: Moderate: 2+ stable chronic illnesses Data: Unique test result(s) reviewed: 2 Risk: Low: Low risk from testing/treatment Medical Decision Making Level: 3 - Low documented in this encounter [facility] 03-25-2024 Note HNO ID: [id number] Author: CHANG THORPE MD Service: ? Author Type: Physician Type: Progress Notes Filed: 04/02/2024 06:41 Note Text: DATE OF SERVICE: 03/25/2024 PROBLEM: Corey Perla presents for CT scan review. HPI: Ms. Perla is a 33 year old G0 female who has a past medical history of Kidney stone and Pyelonephritis. She had multiple abnormal pap smears and positive HPV. She underwent a hysteroscopy, DANDC, biopsy of the cervix to include ECC shows an invasive endocervical adenocarcinoma in November 2022. In December 2022 she had a radical hysterectomy with bilateral salpingectomy and sentinel lymph node biopsy. Pathology resulted in endocervix with invasive well differentiated adenocarcinoma. She underwent 50.4 Gy / 50.4 Gy (28 of 28 fractions) of radiation to the pelvic bed and 5 weeks of Cisplatin, completing in March 2023. She has not followed up since April 2023. She states that she lost her insurance and would like to re-establish care with [facility]. Last office visit: 11/27/23 IMAGING: PET SCAN- OSH 03/21/2023 IMPRESSION: No evidence of residual or recurrent FDG avid malignancy is identified. 11/27/23 CT CHEST ABDOMEN AND PELVIS WITH IV CONTRAST IMPRESSION: No acute pulmonary process is identified. Tiny pulmonary nodules, measuring up to 3 mm in size. Given history of cervical carcinoma, continued interval surveillance is recommended. Otherwise, no convincing CT evidence for metastatic disease within the chest. No lymphadenopathy is seen within the chest. Mild dependent atelectasis. Status post hysterectomy. No convincing CT evidence for metastatic disease within the abdomen or pelvis. Incidental note is a jejunal intussusception within the left abdomen, typically a transient phenomenon. No associated bowel obstruction. 03/22/2024 CT Chest/Abd/Pelvis: Few tiny (less than 3 mm) pulmonary nodules are stable from prior. No new enlarging pulmonary nodule. No thoracic lymphadenopathy. STABLE EXAM. NO METASTATIC DISEASE IN THE ABDOMEN OR PELVIS. LABS: Component 11/27/2023 Bacterial vaginosis Positive for bacterial vaginosis (A) PATHOLOGY: 12/17/2022 OSH Final Diagnosis A. SENTINEL LYMPH NODE, RIGHT PELVIC, DISSECTION - -THREE LYMPH NODES NEGATIVE FOR METASTATIC CARCINOMA (0/3) B. 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 -PROLIFERATIVE PHASE ENDOMETRIUM -UNREMARKABLE BILATERAL FALLOPIAN TUBES -UNREMARKABLE PARAMETRIUM -TWO LYMPH PARAMETRIAL NODES NEGATIVE FOR METASTATIC CARCINOMA (0/2) -NEGATIVE RESECTION MARGINS. C. SENTINEL LYMPH NODE, LEFT PELVIC, DISSECTION - -FIVE LYMPH NODES NEGATIVE FOR METASTATIC CARCINOMA (0/5) PAST SURGICAL HISTORY Procedure Laterality Date PAST SURGICAL HISTORY OF hysterectomy bilateral salpingectomy 12/2022 PAST MEDICAL HISTORY Diagnosis Date Cervical cancer (HCC) 11/2022 Kidney stone Pyelonephritis FAMILY HISTORY Problem Relation Age of Onset Breast Cancer Mother Family history of breast, ovarian, uterine or colon cancer: Yes, mom with breast diagnosed 10/2023 Family history of VTE: No SOCIAL HISTORY Social History Tobacco Use Smoking status: Every Day Packs/day: 0.5 Types: Cigarettes Substance Use Topics Alcohol use: No Drug use: No Marital Status: Single HEALTH MAINTENANCE: Last mammogram: none Last colonoscopy: none Last pap: 1/18/24 in process SUBJECTIVE/INTERVAL HISTORY: Corey L Dauer is doing well. No new complaints since last visit. No vaginal bleeding. She presents to review CT scan. She has not been using the estrogen patch, it was too expensive to pick-up from pharmacy. She has now moved over an hour away to live with her sister. Her abdominal pain is improved and only intermittent now. OBJECTIVE: BP 108/69 Pulse 71 Temp 36.7 ?C (98 ?F) (Oral) Wt 54 kg (119 lb) LMP 05/31/2017 BMI 20.43 kg/m? 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 IB3 adenocarcinoma cervix (2018) diagnosed Sep 2022 s/p RTH, BS, right SLND, left pelvic lymphadenectomy with Dr Fernando De La Rosa at [facility] in [place] on 12/17/2022 with tumor size measuring 4.8 cm, positive LVSI, deep 1/3 invasion, negative margins, negative parametrium and negative nodes on final pathology. She was treated with adjuvant concurrent pelvic radiation with radiosensitizing cisplatin, completed on 04/02/2023. CT scans reviewed today - KATHI KATHI on exam last week Pap smear 11/2023 LSIL, HPV negative GI symptoms: RLQ pain, abdominal distention, diarrhea, improving symptoms S.p GI consult with no intervention recommended. SubCM pulm nodules: Reviewed imaging from 03/22/2024 today which were stable from November (more content not included)... [facility] 03-22-2024 Note HNO ID: [id number] Author: SWETHA BARAHONA, RT(R) Service: ? Author Type: Safety Deposit Boxes Custodian Type: Progress Notes Filed: 03/22/2024 13:51 Note Text: Radiology Service Progress Note DATE OF SERVICE: March 22, 2024 TIME: 1:51 PM PATIENT IDENTITY VERIFICATION COMPLETED USING TWO (2) STANDARD IDENTIFIERS: Name and Date of confirmed by patient verbally. FALL SCREENING: Has the patient had 2 falls in the last year or 1 fall with injury or currently using an Ambulatory Assistive Device (Walker, Cane, Wheelchair, Crutches, etc.)? No PATIENT GENDER DATA: Female. status: : No status: NO. PATIENT RELEVANT IMPLANT DATA REVIEWED: Yes PATIENT PRESENTS WITH AN IMPLANTABLE OR ATTACHED DIESEL ENGINE OPERATOR: No ALLERGIES: Reviewed and unchanged CONTRAST ALLERGY: NO. EXAM: CT -CONTRAST INDUCED NEPHROPATHY RISK FACTORS: Not applicable CREATININE: Creatinine Date Value Ref Range Status 03/31/2019 0.80 0.70 - 1.40 mg/dL Final 11/22/2014 0.70 0.51 - 0.95 mg/dL Final Creatinine (POCT) Date Value Ref Range Status 11/27/2023 0.90 0.6 - 1.3 mg/dL Final eGFR (POCT) Date Value Ref Range Status 11/27/2023 >60 mL/min/1.73 m2 Final eGFR- Date Value Ref Range Status 03/31/2019 >60 >60 Final P.O.C.T. RESULTS: POC done: Yes, See Lab Tab March 22, 2024 TREATMENT: N/A PERIPHERAL IV DATA: Ambulatory: A peripheral IV was started in the Left antecubital site with a Angio cath: 22 gauge. RADIOLOGY DEPARTMENT: CT; Exam(s) Completed: Chest Abdomen Pelvis SIGNATURE: RT Teodoro(R) PATIENT NAME: Corey Perla DATE: March 22, 2024 TIME: 1:51 PM [facility] 03-22-2024 History of Present illness Narrative Radiology Service Progress Note DATE OF SERVICE: March 22, 2024 TIME: 1:51 PM PATIENT IDENTITY VERIFICATION COMPLETED USING TWO (2) STANDARD IDENTIFIERS: Name and Date of confirmed by patient verbally. FALL SCREENING: Has the patient had 2 falls in the last year or 1 fall with injury or currently using an Ambulatory Assistive Device (Walker, Cane, Wheelchair, Crutches, etc.)? No PATIENT GENDER DATA: Female. status: : No status: NO. PATIENT RELEVANT IMPLANT DATA REVIEWED: Yes PATIENT PRESENTS WITH AN IMPLANTABLE OR ATTACHED DIESEL ENGINE OPERATOR: No ALLERGIES: Reviewed and unchanged CONTRAST ALLERGY: NO. EXAM: CT -CONTRAST INDUCED NEPHROPATHY RISK FACTORS: Not applicable CREATININE: Creatinine Date Value Ref Range Status 03/31/2019 0.80 0.70 - 1.40 mg/dL Final 11/22/2014 0.70 0.51 - 0.95 mg/dL Final Creatinine (POCT) Date Value Ref Range Status 11/27/2023 0.90 0.6 - 1.3 mg/dL Final eGFR (POCT) Date Value Ref Range Status 11/27/2023 >60 mL/min/1.73 m2 Final eGFR- Date Value Ref Range Status 03/31/2019 >60 >60 Final P.O.C.T. RESULTS: POC done: Yes, See Lab Tab March 22, 2024 TREATMENT: N/A PERIPHERAL IV DATA: Ambulatory: A peripheral IV was started in the Left antecubital site with a Angio cath: 22 gauge. RADIOLOGY DEPARTMENT: CT; Exam(s) Completed: Chest Abdomen Pelvis SIGNATURE: RT Teodoro(Pablo) PATIENT NAME: Corey Perla DATE: March 22, 2024 TIME: 1:51 PM documented in this encounter [facility] 12-29-2023 Note HNO ID: [id number] Author: RICH LOWE MD Service: ? Author Type: Physician Type: Progress Notes Filed: 12/29/2023 14:05 Note Text: Virtual visit, 20 minutes, patient agrees I have communicated my name and active licensure. The patient's identity and physical location were verified at the time of this visit. Either the patient or their legal claims service representative has been informed of the risks and benefits of -- and alternatives to -- treatment through a remote evaluation and consents to proceed with the evaluation remotely. 33 yo with a history of cervical cancer, radical hysterectomy. Now with 1-2 soft bm daily, with straining and some abd pain. Recently started metamucil. CT of the abdomen shows. IMPRESSION: No acute pulmonary process is identified. Tiny pulmonary nodules, measuring up to 3 mm in size. Given history of cervical carcinoma, continued interval surveillance is recommended. Otherwise, no convincing CT evidence for metastatic disease within the chest. No lymphadenopathy is seen within the chest. Mild dependent atelectasis. Status post hysterectomy. No convincing CT evidence for metastatic disease within the abdomen or pelvis. Incidental note is a jejunal intussusception within the left abdomen, typically a transient phenomenon. No associated bowel obstruction. No symptoms suggestive of bowel obstruction. Pelvic floor dysfunction post-op - will check anorectal manometry. For now, continue metamucil and try squatty potty. Intussusception is incidental. Rich Lowe MD Answers submitted by the patient for this visit: Review of [facility] (Submitted on 12/29/2023) Fever: No Chills: No Night Sweats: Yes A Cough: No Difficulty Breathing: Yes Chest Pain: No Belly pain: Yes A feeling of fullness or have belly pain after eating: Yes Food getting stuck in your throat or chest after eating: No Nausea - that is, a feeling like you could vomit: Yes Regurgitation - that is, food or liquid coming back up into your throat or mouth without vomiting, or feel burning behind your breast bone: No Loss of appetite: Yes To throw up or vomit: No Blood in your stools: No Black tarry stools: No Loose or watery stools: Yes The feeling like you need to empty your bowels right away - that is, feel as if you would have an accident: Yes Bowel incontinence - that is, have an accident because you cannot make it to the bathroom in time: No Problems with straining while having bowel movements , hard or lumpy stools, or feel unfinished (that you have not passed all your stool): Yes Pain in rectum or anus during bowel movements: Yes Problems with jaundice - that is, yellow discoloration of your skin or eyes, now or in the past: No Problems with having to flush the toilet more than two times due to oily stool, or see stool floating with oil: No [facility] 12-29-2023 History of Present illness Narrative Virtual visit, 20 minutes, patient agrees I have communicated my name and active licensure. The patient's identity and physical location were verified at the time of this visit. Either the patient or their legal claims service representative has been informed of the risks and benefits of -- and alternatives to -- treatment through a remote evaluation and consents to proceed with the evaluation remotely. 33 yo with a history of cervical cancer, radical hysterectomy. Now with 1-2 soft bm daily, with straining and some abd pain. Recently started metamucil. CT of the abdomen shows. IMPRESSION: No acute pulmonary process is identified. Tiny pulmonary nodules, measuring up to 3 mm in size. Given history of cervical carcinoma, continued interval surveillance is recommended. Otherwise, no convincing CT evidence for metastatic disease within the chest. No lymphadenopathy is seen within the chest. Mild dependent atelectasis. Status post hysterectomy. No convincing CT evidence for metastatic disease within the abdomen or pelvis. Incidental note is a jejunal intussusception within the left abdomen, typically a transient phenomenon. No associated bowel obstruction. No symptoms suggestive of bowel obstruction. Pelvic floor dysfunction post-op - will check anorectal manometry. For now, continue metamucil and try squatty potty. Intussusception is incidental. Rich Lowe MD Answers submitted by the patient for this visit: Review of [facility] Gastro[facility] (Submitted on 12/29/2023) Fever: No Chills: No Night Sweats: Yes A Cough: No Difficulty Breathing: Yes Chest Pain: No Belly pain: Yes A feeling of fullness or have belly pain after eating: Yes Food getting stuck in your throat or chest after eating: No Nausea - that is, a feeling like you could vomit: Yes Regurgitation - that is, food or liquid coming back up into your throat or mouth without vomiting, or feel burning behind your breast bone: No Loss of appetite: Yes To throw up or vomit: No Blood in your stools: No Black tarry stools: No Loose or watery stools: Yes The feeling like you need to empty your bowels right away - that is, feel as if you would have an accident: Yes Bowel incontinence - that is, have an accident because you cannot make it to the bathroom in time: No Problems with straining while having bowel movements , hard or lumpy stools, or feel unfinished (that you have not passed all your stool): Yes Pain in rectum or anus during bowel movements: Yes Problems with jaundice - that is, yellow discoloration of your skin or eyes, now or in the past: No Problems with having to flush the toilet more than two times due to oily stool, or see stool floating with oil: No documented in this encounter [facility] 12-01-2023 Note HNO ID: [id number] Author: CHANG THORPE MD Service: ? Author Type: Physician Type: Progress Notes Filed: 12/01/2023 09:09 Note Text: TELEVISIT PROGRESS NOTE I have communicated my name and active licensure. The patient's identity and physical location were verified at the time of this visit. Either the patient or their legal claims service representative has been informed of the risks and benefits of -- and alternatives to -- treatment through a remote evaluation and consents to proceed with the evaluation remotely. This is a telephone encounter initiated for an established patient, parent or guardian not originating from a related Evaluation AND Management service provided within the previous 7 days nor leading to an Evaluation AND Management service or procedure within the next 24 hours or soonest available appointment. Patient name and birthday verified: Yes Location of patient: Home Persons Present: Patient DATE OF SERVICE: 12/01/2023 PROBLEM: Corey Perla presents for CT scan review. HPI: Ms. Perla is a 33 year old G0 female who has a past medical history of Kidney stone and Pyelonephritis. She had multiple abnormal pap smears and positive HPV. She underwent a hysteroscopy, DANDC, biopsy of the cervix to include ECC shows an invasive endocervical adenocarcinoma in November 2022. In December 2022 she had a radical hysterectomy with bilateral salpingectomy and sentinel lymph node biopsy. Pathology resulted in endocervix with invasive well differentiated adenocarcinoma. She underwent 50.4 Gy / 50.4 Gy (28 of 28 fractions) of radiation to the pelvic bed and 5 weeks of Cisplatin, completing in March 2023. She has not followed up since April 2023. She states that she lost her insurance and would like to re-establish care with [facility]. Last office visit: 11/27/23 IMAGING: PET SCAN- OSH 03/21/2023 IMPRESSION: No evidence of residual or recurrent FDG avid malignancy is identified. 11/27/23 CT CHEST ABDOMEN AND PELVIS WITH IV CONTRAST IMPRESSION: No acute pulmonary process is identified. Tiny pulmonary nodules, measuring up to 3 mm in size. Given history of cervical carcinoma, continued interval surveillance is recommended. Otherwise, no convincing CT evidence for metastatic disease within the chest. No lymphadenopathy is seen within the chest. Mild dependent atelectasis. Status post hysterectomy. No convincing CT evidence for metastatic disease within the abdomen or pelvis. Incidental note is a jejunal intussusception within the left abdomen, typically a transient phenomenon. No associated bowel obstruction. LABS: Component 11/27/2023 Bacterial vaginosis Positive for bacterial vaginosis (A) PATHOLOGY: 12/17/2022 OSH Final Diagnosis A. SENTINEL LYMPH NODE, RIGHT PELVIC, DISSECTION - -THREE LYMPH NODES NEGATIVE FOR METASTATIC CARCINOMA (0/3) B. 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 -PROLIFERATIVE PHASE ENDOMETRIUM -UNREMARKABLE BILATERAL FALLOPIAN TUBES -UNREMARKABLE PARAMETRIUM -TWO LYMPH PARAMETRIAL NODES NEGATIVE FOR METASTATIC CARCINOMA (0/2) -NEGATIVE RESECTION MARGINS. C. SENTINEL LYMPH NODE, LEFT PELVIC, DISSECTION - -FIVE LYMPH NODES NEGATIVE FOR METASTATIC CARCINOMA (0/5) PAST SURGICAL HISTORY Procedure Laterality Date PAST SURGICAL HISTORY OF hysterectomy bilateral salpingectomy 12/2022 PAST MEDICAL HISTORY Diagnosis Date Cervical cancer (HCC) 11/2022 Kidney stone Pyelonephritis FAMILY HISTORY Problem Relation Age of Onset Breast Cancer Mother Family history of breast, ovarian, uterine or colon cancer: Yes, mom with breast diagnosed 10/2023 Family history of VTE: No SOCIAL HISTORY Social History Tobacco Use Smoking status: Every Day Packs/day: 0.5 Types: Cigarettes Substance Use Topics Alcohol use: No Drug use: No Marital Status: Single HEALTH MAINTENANCE: Last mammogram: none Last colonoscopy: none Last pap: 11/27/23 in process SUBJECTIVE/INTERVAL HISTORY: Corey Perla is doing well. No new complaints since last visit. 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 She was treated with adjuvant concurrent pelvic radiation with radiosensitizing cisplatin, completed on 04/02/2023. Outside documentation, imaging and pathology report were reviewed for this encounter. Patient was unabl (more content not included)... [facility] 11-27-2023 Note HNO ID: [id number] Author: SHAI MCGUIRE RT(R) Service: Radiology Author Type: Safety Deposit Boxes Custodian Type: Progress Notes Filed: 11/27/2023 13:06 Note Text: Radiology Service Progress Note PATIENT NAME: Corey Perla DATE OF SERVICE: November 27, 2023 TIME: 1:06 PM PATIENT IDENTITY VERIFICATION COMPLETED USING TWO (2) IDENTIFIERS: Name and Date of confirmed by patient verbally. FALL SCREENING: Has the patient had 2 falls in the last year or 1 fall with injury or currently using an Ambulatory Assistive Device (Walker, Cane, Wheelchair, Crutches, etc.)? No PATIENT GENDER DATA: Female. status: : No status: NO. PATIENT RELEVANT IMPLANT DATA REVIEWED: Yes RADIOLOGY DEPARTMENT: CT; Exam(s) Completed: Chest Abdomen Pelvis PERIPHERAL IV DATA: Site assessment: Clean,Dry and Intact, Site disposition Discontinued SIGNED BY: RT Amy(R) November 27, 2023 1:06 PM [facility] 11-27-2023 Note HNO ID: [id number] Author: GIDEON MORA RN Service: ? Author Type: Registered Nurse Type: Progress Notes Filed: 11/27/2023 12:49 Note Text: Radiology Service Progress Note DATE OF SERVICE: November 27, 2023 TIME: 12:38 PM PATIENT WEIGHT: 120LBS PATIENT IDENTITY VERIFICATION COMPLETED USING TWO (2) STANDARD IDENTIFIERS: Name and Date of confirmed by patient verbally. FALL SCREENING: Has the patient had 2 falls in the last year or 1 fall with injury or currently using an Ambulatory Assistive Device (Walker, Cane, Wheelchair, Crutches, etc.)? No PATIENT GENDER DATA: Female. status: : No status: NO. ALLERGIES: Reviewed and unchanged CONTRAST ALLERGY: No EXAM: CT -CONTRAST INDUCED NEPHROPATHY RISK FACTORS: Not applicable CREATININE: Creatinine Date Value Ref Range Status 03/31/2019 0.80 0.70 - 1.40 mg/dL Final 11/22/2014 0.70 0.51 - 0.95 mg/dL Final Creatinine (POCT) Date Value Ref Range Status 11/27/2023 0.90 0.6 - 1.3 mg/dL Final eGFR (POCT) Date Value Ref Range Status 11/27/2023 >60 mL/min/1.73 m2 Final eGFR- Date Value Ref Range Status 03/31/2019 >60 >60 Final P.O.C.T. RESULTS: POC done: Yes, See Lab Tab November 27, 2023 TREATMENT: N/A IV SITE: Ambulatory: A peripheral IV was started in the Left antecubital site with a Angio cath: 22 gauge. and A Saline lock was inserted per protocol IV SITE APPEARANCE: Clean,Dry and Intact SIGNATURE: Gideon Mora RN PATIENT NAME: Corey Perla DATE: November 27, 2023 TIME: 12:38 PM [facility] 11-27-2023 Note HNO ID: [id number] Author: CHANG THORPE MD Service: ? Author Type: Physician Type: Progress Notes Filed: 11/28/2023 16:25 Note Text: DATE OF SERVICE: 11/27/2023 PROBLEM: Corey Perla presents to establish care for her history of cervical cancer. HPI: Ms. Perla is a 33 year old G0 female who has a past medical history of Kidney stone and Pyelonephritis. She had multiple abnormal pap smears and positive HPV. She underwent a hysteroscopy, DANDC, biopsy of the cervix to include ECC shows an invasive endocervical adenocarcinoma in November 2022. In December 2022 she had a radical hysterectomy with bilateral salpingectomy and sentinel lymph node biopsy. Pathology resulted in endocervix with invasive well differentiated adenocarcinoma. She underwent 50.4 Gy / 50.4 Gy (28 of 28 fractions) of radiation to the pelvic bed and 5 weeks of Cisplatin, completing in March 2023. She has not followed up since April 2023. She states that she lost her insurance and would like to re-establish care with [facility]. Patient reports that she presented to Dr Fernando De La Rosa at [facility] in [place] in Sep 2022 for evaluation of her history of abnormal pap smears and HPV 16+. An ECC was collected demonstrating invasive endocervical adenocarcinoma. Patient then had surgery followed by chemoRT and since then she has been symptomatic with intense hot flashes which awaken her at nights. Her last PET scan was from March 2023 and she was scheduled to repeat another PET but missed the appointment. Patient last saw Dr Fernando De La Rosa in April 2023. Today, patient reports intermittent RLQ pain which occurs about 4-5 times a day every 3 months. She also has abdominal distention which worsens after eating. Has diarrhea depending on what she eats. Most of the time, her bowel movements are a mix of watery and formed stools. Denies any constipation or issues with urination or vaginal bleeding. Patient was provided a vaginal dilator following her radiation treatment but has not been using it consistently. Patient is a current smoker, about half a pack daily. IMAGING: PET SCAN- OSH 03/21/2023 IMPRESSION: No evidence of residual or recurrent FDG avid malignancy is identified. LABS: No flowsheet data found. PATHOLOGY: 12/17/2022 OSH Final Diagnosis A. SENTINEL LYMPH NODE, RIGHT PELVIC, DISSECTION - -THREE LYMPH NODES NEGATIVE FOR METASTATIC CARCINOMA (0/3) B. 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 -PROLIFERATIVE PHASE ENDOMETRIUM -UNREMARKABLE BILATERAL FALLOPIAN TUBES -UNREMARKABLE PARAMETRIUM -TWO LYMPH PARAMETRIAL NODES NEGATIVE FOR METASTATIC CARCINOMA (0/2) -NEGATIVE RESECTION MARGINS. C. SENTINEL LYMPH NODE, LEFT PELVIC, DISSECTION - -FIVE LYMPH NODES NEGATIVE FOR METASTATIC CARCINOMA (0/5) HISTORIES: PAST GYNECOLOGIC HISTORY: LMP: cannot recall Hormonal contraceptives: No. HRT use: No. History of abnormal pap: Yes, multiple LEEPs Last pap: cannot recall Last HPV: cannot recall PAST SURGICAL HISTORY Procedure Laterality Date PAST SURGICAL HISTORY OF hysterectomy bilateral salpingectomy 12/2022 PAST MEDICAL HISTORY Diagnosis Date Cervical cancer (HCC) 11/2022 Kidney stone Pyelonephritis FAMILY HISTORY Problem Relation Age of Onset No Known Problems Mother No Known Problems Father Family history of breast, ovarian, uterine or colon cancer: Yes, mom with breast diagnosed 10/2023 Family history of VTE: No SOCIAL HISTORY Social History Tobacco Use Smoking status: Every Day Packs/day: 0.5 Types: Cigarettes Substance Use Topics Alcohol use: No Drug use: No Marital Status: Single HEALTH MAINTENANCE: Last mammogram: NA Last colonoscopy: NA Last pap: cannot recall Last HPV: cannot recall REVIEW OF SYSTEMS: GENERAL: Reports decreased appetite, increased fatigue and overall not feeling well HEENT: head positive for headache NECK: No lumps, goiter, pain, significant neck swelling, or difficulty swallowing. RESPIRATORY: positive for shortness of breath on exertion CARDIOVASCULAR: No angina with activity or at rest, lower extremity edema, or palpitations. No recent MS (within 6 months), cardiac stent, cardiac surgery, gangrene, or PVD. No history of hypertension. BREAST: No breast lumps, skin changes, nipple discharge, or adenopathy. GI: Reports abdominal pain, decreased appetite and painful bowel movements. No prior history of esophageal varicies or ascites. Patient denies drinking >2 alcoholic beverages a day. 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 : No dysuria, gross hematuria, urinary frequency, urinary urgency, or incontinence. No history of renal failure, dialysis, or recent UTI (<6 weeks). MUSCULOSKELETAL: No muscle weakness or joint pain. SKIN: No skin les (more content not included)... [facility] 08-28-2023 Note ED Nursing Discharge Summary Entered On: 08/28/2023 12:22 EDT Performed On: 08/28/2023 12:22 EDT by Valerie Altamirano DC Information [id number] ED IV's : No IV ED IV Site Assessment : No IV ED Vitals Completed : Yes ED Final Assessment Completed : Yes ED Progress Note Completed : Yes Complete all PRN/Pain response forms? : Yes ED Disassociate Patient from Monitor : Yes Updated Depart Time : Yes ED Belongings sent w patient [id number] : Not applicable Valerie Altamirano - 08/28/2023 12:22 EDT Education Instructions given to : Patient TeachBack Methodology : TeachBack Barriers to Learning : None evident Valerie Altamirano - 08/28/2023 12:22 EDT ED Assistance Summary Assistance Given? : No Valerie Altamirano - 08/28/2023 12:22 EDT [facility] 05-12-2023 Telephone encounter Note Patient called, urinalysis does look normal. Still having some bladder spasms after radical hysterectomy and adjuvant radiotherapy. I did discuss the case with Dr. Hilda Gallegos and she has agreed to see the patient in the office. I did offer consultation with patient and she would like to see Dr. Gallegos before starting any pharmacologic therapy. Order placed for consultation for urogynecology. [facility] 05-12-2023 Miscellaneous Notes Patient called, urinalysis does look normal. Still having some bladder spasms after radical hysterectomy and adjuvant radiotherapy. I did discuss the case with Dr. Hilda Gallegos and she has agreed to see the patient in the office. I did offer consultation with patient and she would like to see Dr. Gallegos before starting any pharmacologic therapy. Order placed for consultation for urogynecology. documented in this encounter [facility] 05-08-2023 Telephone encounter Note Pt aware of UA results, culture pending. Will call pt when culture results. Pt verbalized understanding, no further questions. [facility] [employer] Work Phone: 05-08-2023 Telephone encounter Note ----- Message from Fernando De La Rosa MD sent at 05/08/2023 6:12 AM EDT ----- Plz call, UA looks good, will await culture. ----- Message ----- From: Vicky, [facility] Results In Sent: 05/08/2023 6:04 AM EDT To: Fernando De La Rosa MD [facility] 05-08-2023 Miscellaneous Notes Pt aware of UA results, culture pending. Will call pt when culture results. Pt verbalized understanding, no further questions. ----- Message from Fernando De La Rosa MD sent at 05/08/2023 6:12 AM EDT ----- Plz call, UA looks good, will await culture. ----- Message ----- From: [facility] Results In Sent: 05/08/2023 6:04 AM EDT To: Fernando De La Rosa MD documented in this encounter [facility] 05-07-2023 History of Present illness Narrative CC: stage I B3 (p) well-differentiated adenocarcinoma of the endocervix HPI: 32 y.o. 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 On initial exam she was found to have a stage I B2. She was treated with radical hysterectomy bilateral salpingectomy and sentinel lymph node sampling. Final pathology did show evidence of a tumor greater than 4 cm in size. Patient also meet Sedlis criteria. patient met criteria for postoperative radiation therapy. Underwent combined radiotherapy along with weekly cisplatin. This completed on April 02, 2023. INTERVAL SINCE RADIATION: With Cisplatin completed course # 5 of 5 on 04/02/2023 for 5 weeks with concurrent radiation. Radiation Treatments Active No active radiation treatments to show. Historical Pelvic Bed (Started on 02/03/2023) Most recent fraction: 1.8 Gy given on 03/19/2023 Total given: 50.4 Gy / 50.4 Gy (28 of 28 fractions) Elapsed Days: 44 Technique: VMAT/Daily IGRT She does complain of fatigue today. She also has been complaining of severe bladder spasms that happen 4-5 times per day. She was seen in the [facility] emergency room couple weeks ago and was treated for UTI. This did help solve the symptoms for a while. But now she continues to have 4-5 severe bladder spasms a day that will bring her to her knees. Sometimes associated with a small loss of urine. Patient states she underwent a CT scan in the emergency room a couple weeks ago and was told that everything looked good. She denies any dysuria at this time. However feels that she may have another bladder infection. She denies any vaginal bleeding. Is started using her dilator. 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 Kidney stones Past Surgical History: Procedure Laterality Date COLPOSCOPY with LEEP HYSTERECTOMY Abdominal Radical Hysterectomy Bilateral Salpingectomy WISDOM TOOTH EXTRACTION Social History Socioeconomic History Marital status: Single Tobacco Use Smoking status: Every Day Packs/day: 0.50 Years: 15.00 Pack years: 7.50 Types: Cigarettes Smokeless tobacco: Never Vaping Use Vaping Use: Never used Substance and Sexual Activity Alcohol use: Yes Comment: Rarely Drug use: Yes Types: Marijuana Sexual activity: Not Currently Social Determinants of Health Transportation Needs: No Transportation Needs (12/17/2022) PRAPARE - Transportation Lack of Transportation (Medical): No Lack of Transportation (Non-Medical): No Housing Stability: Low Risk (12/17/2022) Housing Stability Vital Sign Unable to Pay for Housing in the Last Year: No Number of Places Lived in the Last Year: 1 Unstable Housing in the Last Year: No Current Outpatient Medications Medication Sig Dispense Refill apixaban (Eliquis) 2.5 MG tablet Take 1 tablet (2.5 mg) by mouth 2 times daily for 28 days. 56 tablet 0 cephalexin (Keflex) 500 MG capsule Take 500 mg by mouth in the morning and 500 mg at noon and 500 mg before bedtime. HYDROcodone-acetaminophen ([place]) 5-325 MG tablet Take 1 tablet by mouth every 4 hours as needed for severe pain (7-10). ondansetron ODT (Zofran-ODT) 4 MG disintegrating tablet phenazopyridine (Pyridium) 200 MG tablet Orally, one tablet 3 times a day until burning subsides; note urine will turn blood red with this medication; you are not bleeding. (Patient not taking: Reported on 04/24/2023) 30 tablet 1 potassium chloride CR (Klor-Con M10) 10 MEQ ER tablet Take 2 tablets (20 mEq) by mouth daily. Do not crush or chew. (Patient not taking: Reported on 05/07/2023) 60 tablet 11 prochlorperazine (Compazine) 10 MG tablet Take 1 tablet (10 mg) by mouth every 6 hours as needed for nausea or vomiting. 30 tablet 2 No current facility-administered medications for this visit. Review of Systems Constitutional: Positive for fatigue. Endocrine: Positive vasomotor symptoms Genitourinary: Positive for difficulty urinating, dysuria and frequency. Negative for vaginal bleeding. Patient has no known allergies. BP 111/74 Pulse 82 Ht 1.626 m (5' 4) Wt 53.1 kg (117 lb) BMI 20.08 kg/m Physical Exam Vitals and nursing note reviewed. Exam conducted with a database marketing manager present. Constitutional: Appearance: Normal appearance. Abdominal: General: Abdomen is flat. Palpations: Abdomen is soft. Genitourinary: General: Normal vulva. Labia: Right: No lesion. Left: No lesion. Urethra: No urethral lesion. Vagina: Normal. Uterus: Absent. Adnexa: Right adnexa normal and left adnexa normal. Comments: Vaginal cuff is healed well, there is a small area of separation in the upper left vulva. No evidence of recurrent disease is noted. The vagina is soft and supple. There is some bladder tenderness noted on bimanual exam. Lymphadenopathy: Upper Body: Right upper body: No supraclavicular adenopathy. Left upper body: No supraclavicular adenopathy. Lower Body: No right inguinal adenopathy. No left inguinal adenopathy. Skin: General: Skin is warm and dry. Neurological: Mental Status: She is alert. Psychiatric: Mood and Affect: Mood normal. Behavior: Behavior normal. Assessment: Stage Ib 3 adenocarcinoma of the endocervix status post surgery followed by adjuvant radiotherapy and weekly cisplatin. Possible UTI, having severe bladder spasms not responding to Pyridium Positive vasomotor symptoms, patient may be menopausal due to radiation therapy Plan: We will check urinalysis and culture today. We will also talk to urogynecology to see if there is a better drug available for bladder spasms. We will check FSH, discussed with patient that she may be candidate for estrogen replacement therapy. Discussed the need for long-term follow-up as well as the signs and symptoms of recurrent disease. We will plan on visit every 3 months for 2 years and every 6 months until 5 years out. The patient like to have her follow-up at [facility] as she lives close to [facility] and has seen our nurse practitioner Tray in the past. We will set her up to see our nurse practitioner in 3 months. I will call her with the FSH as well as urinalysis result. Total time spent with counseling, review of pathology report and plan for long-term follow-up was 35 minutes documented in this encounter [facility] 04-24-2023 Nurse Note The patient is here at [facility] by herself for follow up with Dr. Ocampo. The patient denies any skin issues at the previous site of radiation. The patient states she is having 7/10 right abdominal pain that radiates to her right rib cage. She states she was at [facility] ED on 04/22/23. She was informed by the ED physician that she has a bladder infection. She was started on Keflex 500 mg by mouth every 8 hours. The patient states her appetite is poor. She reports a fatigue level of 4/10 and it has improve slightly since the completion of radiation. She states she is sleeping well. The patient denies any vaginal dryness, spotting, bleeding, or discharge. She denies any urinary or bowel issues at the current time. She has a follow up appointment scheduled with Dr. De La Rosa for 04/30/23. [facility] 04-24-2023 Nurse Note Under the direction of Dr. Ocampo, the RN gave the patient a small and medium vaginal dilator. The RN gave and reviewed vaginal dilator use and care. The patient verbalized understanding. [facility] 04-24-2023 Nurse Note The patient is here at [facility] by herself for follow up with Dr. Ocampo. The patient denies any skin issues at the previous site of radiation. The patient states she is having 7/10 right abdominal pain that radiates to her right rib cage. She states she was at [facility] on 04/22/23. She was informed by the ED physician that she has a bladder infection. She was started on Keflex 500 mg by mouth every 8 hours. The patient states her appetite is poor. She reports a fatigue level of 4/10 and it has improve slightly since the completion of radiation. She states she is sleeping well. The patient denies any vaginal dryness, spotting, bleeding, or discharge. She denies any urinary or bowel issues at the current time. She has a follow up appointment scheduled with Dr. De La Rosa for 04/30/23. Under the direction of Dr. Ocampo, the RN gave the patient a small and medium vaginal dilator. The RN gave and reviewed vaginal dilator use and care. The patient verbalized understanding. documented in this encounter [facility] 04-22-2023 Note ED Nursing Discharge Summary Entered On: 04/22/2023 16:29 EDT Performed On: 04/22/2023 16:29 EDT by Zoie Solis RN OK Information [id number] ED IV's : No IV ED IV Site Assessment : Yes, Completed in [facility] ED Vitals Completed : N/A ED Final Assessment Completed : N/A ED Progress Note Completed : N/A Complete all PRN/Pain response forms? : No ED Disassociate Patient from Monitor : No Updated Depart Time : No (not needed time is correct) ED Belongings sent w patient [id number] : Not applicable Zoie Solis RN - 04/22/2023 16:29 EDT Education TeachBack Methodology : Explanation, Printed Material Barriers to Learning : None evident Zoie Solis RN - 04/22/2023 16:29 EDT ED Assistance Summary Assistance Given? : No Zoie Solis RN - 04/22/2023 16:29 EDT [facility] 03-24-2023 Telephone encounter Note Pt aware of PET results, will follow up with Dr. De La Rosa next week. Pt verbalized understanding, no further questions. [employer] Work Phone: 03-24-2023 Telephone encounter Note ----- Message from Fernando De La Rosa MD sent at 03/24/2023 1:23 PM EDT ----- Not if it was her regular scheduled surveillance appt. ----- Message ----- From: DAIJA Murray CNP Sent: 03/24/2023 12:46 PM EDT To: Fernando De La Rosa MD, # She sees you next week, OK to cancel your appt? ThanksAbbi ----- Message ----- From: Fernando De La Rosa MD Sent: 03/24/2023 6:09 AM EDT To: DAIJA Murray CNP, # Plz call with good news, KATHI on PET scan. Follow up q 3 months for 2 years then q 6 months for 3. ----- Message ----- From: Interface, Radiology Results In Sent: 03/21/2023 4:48 PM EDT To: Fernando De La Rosa MD [facility] 03-24-2023 Miscellaneous Notes Pt aware of PET results, will follow up with Dr. De La Rosa next week. Pt verbalized understanding, no further questions. ----- Message from Fernando De La Rosa MD sent at 03/24/2023 1:23 PM EDT ----- Not if it was her regular scheduled surveillance appt. ----- Message ----- From: DAIJA Murray CNP Sent: 03/24/2023 12:46 PM EDT To: Fernando De La Rosa MD, # She sees you next week, OK to cancel your appt? ThanksAbbi ----- Message ----- From: Fernando De La Rosa MD Sent: 03/24/2023 6:09 AM EDT To: DAIJA Murray CNP, # Plz call with good news, KATHI on PET scan. Follow up q 3 months for 2 years then q 6 months for 3. ----- Message ----- From: Interface, Radiology Results In Sent: 03/21/2023 4:48 PM EDT To: Fernando De La Rosa MD documented in this encounter [facility] 03-13-2023 Telephone encounter Note Pt informed will repeat PET scan. Pt verbalized understanding. [facility] 03-13-2023 Miscellaneous Notes Pt informed will repeat PET scan. Pt verbalized understanding. Called pt with OV with Dr. De La Rosa following completion of cisplatin/radiation. Pt is requesting a follow up scan after completion. documented in this encounter [facility] 03-13-2023 Telephone encounter Note Called pt with OV with Dr. De La Rosa following completion of cisplatin/radiation. Pt is requesting a follow up scan after completion. [facility] 03-12-2023 Note Pt arrived ambulator y for cycle 5 (delayed) cisplatin. Plan of care discussed. IV started without difficulty. CBC/CMP/Mg level drawn and sent to the lab for processing. Pt reports she has some constant burning vaginally and burning with urination related to the radiation therapy pt is receiving. Pt denies any open areas/tears. Pt reports her radiation oncologist is aware and that they tested her for a UTI and called her in pyridum. Inquired if pt feels like she is up for treatment and pt verbalized yes. Hydration infusing while waiting on lab results. Pt reports ongoing, unchanged ringing in her ears that she states started with the first cycle. Pt states at times its really loud. Denies hearing loss and reports unchanged since first cycle. 1049 lab results noted. Cr cl at 93.87 mL/min. Potassium at 3.2 - potassium to be added to post hydration pt aware of the plan. 1414 pt to radiation therapy. 1440 after pt returned from radiation, post hydration completed. Pt discharged to home ambulatory. Pt is aware of her hydration appointment tomorrow. [facility] 03-12-2023 Telephone encounter Note Called my [facility] infusion center and spoke to Amisha regarding adding 20 M EQ of potassium to patient's post hydration after chemotherapy. Verbalizes understanding [facility] 03-12-2023 Miscellaneous Notes Called my [facility] infusion center and spoke to Amisha regarding adding 20 M EQ of potassium to patient's post hydration after chemotherapy. Verbalizes understanding documented in this encounter [facility] 03-04-2023 History of Present illness Narrative Patient arrived ambulatory for Cycle 4 day 1 Cisplatin. PIV inserted in RFA, blood for CBC,CMP and Mg+ sent to lab. Patient reports feeling much better after week off of treatment, and currently denies any dysuria. CBC reviewed with patient.CMP and Mg+ level obtained. K+ level reviewed. WNL, KCL in pre and post IV hydration d/c'd.Patient continues on NS IVF. Patient tolerated treatment well. Vitals obtained post infusion. PIV d/c'd with angio cath intact. Patient ambulatory to Radiation. documented in this encounter [facility] 02-27-2023 Telephone encounter Note Called patient with negative urine culture and also called concerning ultrasound of left superficial clot. Has improved and has partial compressibility. Instructed patient to continue heat elevation and ibuprofen. Patient verbalizes understanding and encouraged to call with any worsening symptoms. [facility] 02-27-2023 Miscellaneous Notes Called patient with negative urine culture and also called concerning ultrasound of left superficial clot. Has improved and has partial compressibility. Instructed patient to continue heat elevation and ibuprofen. Patient verbalizes understanding and encouraged to call with any worsening symptoms. documented in this encounter [facility] 02-25-2023 History of Present illness Narrative ARRIVAL NOTE INFUSION Patient is here for IV hydration Labs were not ordered Patient tolerated IV hydration well. Vitals obtained post administration. PIV d/c'd angio cath intact. Patient stable and ambulatory upon discharge. documented in this encounter [facility] 02-24-2023 Note ED Nursing Discharge Summary Entered On: 02/24/2023 18:55 EDT Performed On: 02/24/2023 18:53 EDT by Karina Encinas RN OK Information [id number] ED IV's : No IV ED IV Site Assessment : No IV ED Vitals Completed : N/A ED Final Assessment Completed : Yes ED Progress Note Completed : Yes Complete all PRN/Pain response forms? : N/A ED Disassociate Patient from Monitor : N/A Updated Depart Time : No (not needed time is correct) ED Belongings sent w patient [id number] : Not applicable Karina Encinas RN - 02/24/2023 18:55 EDT Education TeachBack Methodology : Explanation, Printed Material Barriers to Learning : None evident Karina Encinas RN - 02/24/2023 18:55 EDT ED Assistance Summary Assistance Given? : No Karina Encinas RN - 02/24/2023 18:55 EDT [facility] 02-24-2023 Telephone encounter Note Name of caller requesting page:Juan Phone Number of caller: [phone] Facility requesting page: On-Call Finder Reason for Page: Update on patient Provider paged: Dr De La Rosa Practice Name of paged provider: Violet Page Placed to #: On-Call Finder Time Page was sent or provider contacted: 4:39pm Page Content: Please call [facility] ([phone]). Pt has increased pelvic pain/pressure. small amount urination. [facility] 02-24-2023 Miscellaneous Notes Name of caller requesting page:Juan Phone Number of caller: [phone] Facility requesting page: On-Call Finder Reason for Page: Update on patient Provider paged: Dr De La Rosa Practice Name of paged provider: Violet Page Placed to #: On-Call Finder Time Page was sent or provider contacted: 4:39pm Page Content: Please call [facility] ([phone]). Pt has increased pelvic pain/pressure. small amount urination. documented in this encounter [facility] 02-18-2023 Note Orders placed for sl ightly swollen and tender/painful to touch. Will place US for evaluation of a blood clot. [facility] 02-18-2023 Telephone encounter Note Orders placed for slightly swollen and tender/painful to touch. Will place US for evaluation of a blood clot. [facility] 04-11-2023 Miscellaneous Notes Orders placed for slightly swollen and tender/painful to touch. Will place US for evaluation of a blood clot. documented in this encounter [facility] 02-18-2023 Telephone encounter Note Follow up phone call made to pt. Pt's wt. 120# (02/18/23). Pt. States that her appetite is improving and that she is consuming more fruit, water and an occasional Boost (Oral Nutritional Supplement). Provided positive reinforcement provided. During time of conversation, pt. Was receiving treatment. Asked pt. To relay to RN Prabhakar) to provide ONS samples as well as a copy of the Smoothie Booklet. Phone call was made to Infusion number as well, and a message was left for nursing to provide items stated to the pt. Continue to monitor and follow. FRANKLYN Peres CDE [facility] 02-18-2023 Miscellaneous Notes Follow up phone call made to pt. Pt's wt. 120# (02/18/23). Pt. States that her appetite is improving and that she is consuming more fruit, water and an occasional Boost (Oral Nutritional Supplement). Provided positive reinforcement provided. During time of conversation, pt. Was receiving treatment. Asked pt. To relay to RN Prabhakar) to provide ONS samples as well as a copy of the Smoothie Booklet. Phone call was made to Infusion number as well, and a message was left for nursing to provide items stated to the pt. Continue to monitor and follow. FRANKLYN Peres CDE documented in this encounter [facility] 02-18-2023 History of Present illness Narrative ARRIVAL NOTE INFUSION Patient is here for chemotherapy and lab draw Labs were drawn via peripheral IV 1135 Spoke with Avel at Dr. Goldsmith's office. Patient continues to have pelvic pressure, difficulty urinating and emptying bladder. Urinalysis was obtained yesterday. Call placed to lab and specimen did not reflex to culture. If dr would like a culture, it will need to be ordered. Notified that potassium is 3.1. She is taking PO potassium at home as prescribed. Awaiting a returned call back. 1205 Shala Xinog MANAGEMENT TRAINEE MARKETING is placing order for culture of urine. Ok to proceed with chemotherapy. Add Potassium chloride 10 meq to pre and post hydration today for a total of 20 meq Kcl today. Discussed with patient and is agreeable to plan. 1631 Patient tolerated Cisplatin infusion well. No IV related complications. Reviewed home going instructions. Patient understands s/sx adverse reaction or complication to report to MD office. Patient denies questions or concerns. She is aware that ultrasound order was placed to evaluate her left upper arm and will follow up with Dr. Parham's office regarding scheduling. documented in this encounter [facility] 02-17-2023 Telephone encounter Note Pt. Here for OTV and c/o inability to empty bladder and dysuria. Dr. Ocampo would like a UA with reflex to culture. Order routed to physician for approval. [facility] 02-17-2023 Miscellaneous Notes Pt. Here for OTV and c/o inability to empty bladder and dysuria. Dr. Ocampo would like a UA with reflex to culture. Order routed to physician for approval. documented in this encounter [facility] 02-12-2023 Telephone encounter Note Pt missed a call. Informed her of the prn hydration plans and oral potassium called in yesterday. [facility] 02-12-2023 Miscellaneous Notes Pt missed a call. Informed her of the prn hydration plans and oral potassium called in yesterday. Pt potassium is 3.1 today. Amisha to give 20 at infusion today. Call in 20 meq of oral potassium daily. documented in this encounter [facility] 02-11-2023 Telephone encounter Note Pt potassium is 3.1 today. Amisha to give 20 at infusion today. Call in 20 meq of oral potassium daily. [facility] 02-11-2023 History of Present illness Narrative ARRIVAL NOTE INFUSION Patient is here for chemotherapy and lab draw Labs were drawn via peripheral IV 1020 Per Shala Xiong NP, give KCl 10 meq in pre hydration and KCl 10 meq in post hydration for a total of 20 meq IV today. She will also be sending in a prescription for PO potassium. Discussed with patient and she is agreeable to this plan. 1450 Patient tolerated Cisplatin infusion well. No IV related complications. Reviewed home going instructions. Patient understands s/sx adverse reaction or complication to report to MD office. Patient denies questions or concerns. Patient to radiation treatment She is scheduled for Friday for IV hydration as last week, she started having nausea and vomiting and diarrhea on Friday after treatment. She does have Imodium for diarrhea and reinforced use of antiemetics. documented in this encounter [facility] 02-07-2023 Telephone encounter Note This worker received patient's [facility] glenys application from admissions officer at [facility]. Reached out to patient on this date to assist patient with completing the application over the phone. This worker faxed the application to the [facility] at fax # [phone]. No other needs reported at this time. Patient has this worker's contact information and voices understanding to reach out if supportive care needs or questions arise. [facility] 02-07-2023 Miscellaneous Notes This worker received [facility]'s [facility] application from admissions officer at [facility]. Reached out to patient on this date to assist patient with completing the application over the phone. This worker faxed the application to the [facility] at fax # [phone]. No other needs reported at this time. Patient has this worker's contact information and voices understanding to reach out if supportive care needs or questions arise. documented in this encounter [facility] 02-06-2023 Telephone encounter Note Reached out to patient on this date via phone to follow up regarding the [facility] glenys application this worker provided to patient previously. Patient states she has the application completed she just has not had a chance to submit it yet. Encouraged patient to bring the completed application to [facility] if she would like assistance submitting it. Notified admissions officer, Leonela Tong that patient may be bringing an application for this worker. [facility] 02-06-2023 Miscellaneous Notes Reached out to patient on this date via phone to follow up regarding the [facility] glenys application this worker provided to patient previously. Patient states she has the application completed she just has not had a chance to submit it yet. Encouraged patient to bring the completed application to [facility] if she would like assistance submitting it. Notified admissions officer, Leonela Tong that patient may be bringing an application for this worker. documented in this encounter [facility] 02-03-2023 Telephone encounter Note Request for medication refill pended and routed to physician for approval. [facility] 02-03-2023 Miscellaneous Notes Request for medication refill pended and routed to physician for approval. documented in this encounter [facility] 01-22-2023 Telephone encounter Note Received return call from patient on this date. Notified patient that the gas gift card and [employer] application this worker mailed to patient were returned to sender. 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 Patient voices understanding to reach out if additional supportive care needs or questions arise. [facility] 01-22-2023 Miscellaneous Notes Received return call from patient on this date. Notified patient that the gas gift card and [employer] application this worker mailed to patient were returned to sender. 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 Patient voices understanding to reach out if additional supportive care needs or questions arise. documented in this encounter [facility] 01-22-2023 Telephone encounter Note The [employer] application and gas gift card this worker mailed to patient were returned to sender. This worker reached out to patient on this date to let her know the mailing was returned to this worker and to discuss another plan to get the mailing to patient. No answer. Left voicemail requesting return call. [facility] 01-22-2023 Miscellaneous Notes The [employer] application and gas gift card this worker mailed to patient were returned to sender. This worker reached out to patient on this date to let her know the mailing was returned to this worker and to discuss another plan to get the mailing to patient. No answer. Left voicemail requesting return call. documented in this encounter [facility] 01-10-2023 Telephone encounter Note Reached out to patient on this date via phone. Introduced self and role. 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 Currently patient is not working because she had a recent surgery and she will be undergoing treatments for her cancer diagnosis. Patient states usually she lives with her parents but right now she is staying with her significant other because he lives closer to [facility], where patient will be receiving daily treatments. Patient states her significant other's address is still about 30 minutes away from [facility] so patient is concerned about the cost of gas getting to and from treatments. Provided education on the [employer] [facility] glenys application patient can complete once she is in active treatment. Explained to patient that she can request assistance with gas on that application. This worker to mail patient a [employer] application. Encouraged patient to reach out if she needs assistance completing or submitting the application. This worker to also mail patient a gas gift card. Patient requests the mailings go to her significant other's address (where she is currently staying) [address] [place] [address]. Application and gift card mailed. No other needs reported at this time. Patient has this worker's contact information and voices understanding to reach out if supportive care needs or questions arise. [facility] 01-10-2023 Miscellaneous Notes Reached out to patient on this date via phone. Introduced self and role. 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 Currently patient is not working because she had a recent surgery and she will be undergoing treatments for her cancer diagnosis. Patient states usually she lives with her parents but right now she is staying with her significant other because he lives closer to [facility], where patient will be receiving daily treatments. Patient states her significant other's address is still about 30 minutes away from [facility] so patient is concerned about the cost of gas getting to and from treatments. Provided education on the [facility] glenys application patient can complete once she is in active treatment. Explained to patient that she can request assistance with gas on that application. This worker to mail patient a [employer] application. Encouraged patient to reach out if she needs assistance completing or submitting the application. This worker to also mail patient a gas gift card. Patient requests the mailings go to her significant other's address (where she is currently staying) [address], [address] [place] [address]. Application and gift card mailed. No other needs reported at this time. Patient has this worker's contact information and voices understanding to reach out if supportive care needs or questions arise. documented in this encounter [facility] 01-09-2023 Note Received referral fr Ana Laura Francisco to contact patient regarding financial concerns. Reached out to patient on this date via phone. No answer. Left voicemail requesting return call. [facility] 01-09-2023 Telephone encounter Note Received referral from Ana Laura Peres to contact patient regarding financial concerns. Reached out to patient on this date via phone. No answer. Left voicemail requesting return call. [facility] 01-09-2023 Miscellaneous Notes Received referral from Ana Laura Peres to contact patient regarding financial concerns. Reached out to patient on this date via phone. No answer. Left voicemail requesting return call. documented in this encounter [facility] 01-03-2023 Note Referral received, maco irizarry Pt. Confirms that she has lost ~35# in the last year, with current wt. 121# (2/23/23). Pt. States that she struggled with her appetite prior to hysterectomy, which progressively got worse post-op. Pt. States that bowel function as improved with the use of stool softeners. Encouraged pt. To increase fluid intake to promote bowel regularity. Pt. States that she is planning to start using liquid IV to aid with increased fluid intake. Explained support services, inclusive of Assistant Case Manager and Financial Navigator. Pt. With financial concerns related to gas cost, since she will have daily treatment which will inhibit her from working. Recommend and will provide referral to Assistant Case Manager and Financial Navigator. Provided contact information for pt. To call with any additional questions/concerns. Continue to monitor and follow. FRANKLYN Peres CDE [facility] 01-03-2023 Telephone encounter Note Referral received, thank you. Pt. Confirms that she has lost ~35# in the last year, with current wt. 121# (01/02/23). Pt. States that she struggled with her appetite prior to hysterectomy, which progressively got worse post-op. Pt. States that bowel function as improved with the use of stool softeners. Encouraged pt. To increase fluid intake to promote bowel regularity. Pt. States that she is planning to start using liquid IV to aid with increased fluid intake. Explained support services, inclusive of Assistant Case Manager and Financial Navigator. Pt. With financial concerns related to gas cost, since she will have daily treatment which will inhibit her from working. Recommend and will provide referral to Assistant Case Manager and Financial Navigator. Provided contact information for pt. To call with any additional questions/concerns. Continue to monitor and follow. FRANKLYN Peres CDE [facility] 01-03-2023 Miscellaneous Notes Referral received, thank you. Pt. Confirms that she has lost ~35# in the last year, with current wt. 121# (01/02/23). Pt. States that she struggled with her appetite prior to hysterectomy, which progressively got worse post-op. Pt. States that bowel function as improved with the use of stool softeners. Encouraged pt. To increase fluid intake to promote bowel regularity. Pt. States that she is planning to start using liquid IV to aid with increased fluid intake. Explained support services, inclusive of Assistant Case Manager and Financial Navigator. Pt. With financial concerns related to gas cost, since she will have daily treatment which will inhibit her from working. Recommend and will provide referral to Assistant Case Manager and Financial Navigator. Provided contact information for pt. To call with any additional questions/concerns. Continue to monitor and follow. Mary Ann Hudson RDN LD CDE documented in this encounter [facility] 01-02-2023 Telephone encounter Note Approved Dilaudid, 4 mg oral every four hours using [employer] verification system. [facility] 01-02-2023 Miscellaneous Notes Approved Dilaudid, 4 mg oral every four hours using [employer] verification system. Dr. Ocampo assessed the patient during a new consult appointment. Dr. Ocampo gave a verbal order for Dilaudid 4mg every 4 hours as needed for severe pain and Zofran 8mg 1 hour prior to radiation and 6 hours after radiation. Request for medication fill pended and routed to physician for approval. documented in this encounter [facility] 01-02-[address] Ocampo assessed the patient during a new consult appointment. Dr. Ocampo gave a verbal order for Dilaudid 4mg every 4 hours as needed for severe pain and Zofran 8mg 1 hour prior to radiation and 6 hours after radiation. Request for medication fill pended and routed to physician for approval. [facility] 01-02-2023 Note RADIATION ONCOLOGY I NITIAL CONSULTATION PATIENT: Corey Perla DATE OF SERVICE: 01/02/2023 : 1990 AGE: 32 y.o. PRIMARY SITE AND HISTOPATHOLOGY: pT1b3, G1 adenocarcinoma of the cervix. Problem List Items Addressed This Visit Genitourinary Stage I adenocarcinoma of cervix (CMS/HCC) (HCC) Relevant Orders [facility] [place] HISTORY OF PRESENT ILLNESS: Status post abdominal radical hysterectomy bilateral salpingectomy and bilateral for proxy for a stage I B1 endocervical carcinoma. A. SENTINEL LYMPH NODE, RIGHT PELVIC, DISSECTION - -THREE LYMPH NODES NEGATIVE FOR METASTATIC CARCINOMA (0/3) B. 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 -PROLIFERATIVE PHASE ENDOMETRIUM -UNREMARKABLE BILATERAL FALLOPIAN TUBES -UNREMARKABLE PARAMETRIUM -TWO LYMPH PARAMETRIAL NODES NEGATIVE FOR METASTATIC CARCINOMA (0/2) -NEGATIVE RESECTION MARGINS. C. SENTINEL LYMPH NODE, LEFT PELVIC, DISSECTION - -FIVE LYMPH NODES NEGATIVE FOR METASTATIC CARCINOMA (0/5) at 1417 Comment The tumor was not grossly identified or able to be measured grossly, however was submitted microscopically and found to have significant involvement of 12 tissue blocks. The blocks measure 0.4 cm in thickness. The tumor size is estimated at 4.8 cm based on that information. The radiology report demonstrates a 4.0 cm measurement. Staging is at least pT1b2 based on on the radiographic measurement, but may be slightly larger and fall into the category of pT1b3 using the estimated measurement of 4.8 cm. Please correlate with clinical and operative findings. Synoptic Checklist UTERINE CERVIX: Resection 9th Edition - Protocol posted: 05/25/2021 UTERINE CERVIX: TRACHELECTOMY, HYSTERECTOMY, PELVIC EXENTERA - All Specimens SPECIMEN Procedure Radical hysterectomy Bilateral salpingectomy Hysterectomy Type Abdominal TUMOR Tumor Site Circumfrential Tumor Size Greatest Dimension (Centimeters): 4.8 (estimated, see comment) cm Additional Dimension (Centimeters) 1.6 cm 1.1 cm Histologic Type Adenocarcinoma, NOS Histologic Type Comment P16 is pending for evaluation of HPV association. Histologic Grade G1, well differentiated Depth of Stromal Invasion 11 mm Extent of Depth of Stromal Invasion Deep one-third Horizontal Extent of Stromal Invasion 18 mm Duarte System for Invasion Not applicable Other Tissue / Organ Involvement Not identified Lymphovascular Invasion Present MARGINS Margin Status for Invasive Carcinoma All margins negative for invasive carcinoma Closest Margin(s) to Invasive Carcinoma Radial / circumferential: 6-9 o'clock area Distance from Invasive Carcinoma to Closest Margin 5 mm Margin Status for HSIL or AIS All margins negative for high-grade squamous intraepithelial lesion (HSIL) and / or adenocarcinoma in situ (AIS) REGIONAL LYMPH NODES Regional Lymph Node Status All regional lymph nodes negative for tumor cells Lymph Nodes Examined Total Number of Pelvic Nodes Examined 10 Number of Pelvic Rudolph Nodes Examined 8 Total Number of Para-aortic Nodes Examined 0 PATHOLOGIC STAGE CLASSIFICATION (pTNM, AJCC 9th Version) Reporting of pT, pN, and (when applicable) pM categories is based on information available to the pathologist at the time the report is issued. As per the AJCC (Chapter 1, 8th Ed.) it is the managing physician?s responsibility to establish the final pathologic stage based upon all pertinent information, including but potentially not limited to this pathology report. pT Category pT1b3 The patient is here at [place] with her boyfriend for a new consult with Dr. Ocampo. The patient denies any previous history of chemotherapy or radiation therapy. The patient denies having a pacemaker or another implantable device. The patient states her appetite has improved as of recent (approx 2 weeks after her surgery). She denies having any appetite until she begin to use marijuana. She reports a 35 lb weight loss over the last year. Her nutrition screening score was 8. The RN will make a referral to the Dietitian for her nutritional screening score. She states, I am always tired even before my surgery. Her fatigue level is 4/10. She states her sleeping is terrible. She is unable to sleep related to pain. She is having constant aching pain 7/10 in her right lower abdomen. The area is very tender to touch. She states she was diagnosed with a right flank hematoma by a CT scan. The patient states she was informed that the hematoma is thought to be secondary to the tap block she received. Dr. De La Rosa has informed her to stop taking her po Eliquis. She denies experiencing any vaginal spotting/bleeding, drainage, dryness, pain or odor. She states she (more content not included)... [facility] 02-23-2023 Nurse Note The patient is here at [place] with her boyfriend for a new consult with Dr. Ocampo. The patient denies any previous history of chemotherapy or radiation therapy. The patient denies having a pacemaker or another implantable device. The patient states her appetite has improved as of recent (approx 2 weeks after her surgery). She denies having any appetite until she begin to use marijuana. She reports a 35lb weight loss over the last year. Her nutrition screening score was 8. The RN will make a referral to the Dietitian for her nutritional screening score. She states, I am always tired even before my surgery. Her fatigue level is 4/10. She states her sleeping is terrible. She is unable to sleep related to pain. She is having constant aching pain 7/10 in her right lower abdomen. The area is very tender to touch. She states she was diagnosed with a right flank hematoma by a CT scan. The patient states she was informed that the hematoma is thought to be secondary to the tap block she received. Dr. De La Rosa has informed her to stop taking her po Eliquis. She denies experiencing any vaginal spotting/bleeding, drainage, dryness, pain or odor. She states she has a stabbing sensation/pain at the completion of urinating. She said this sensation is present every time she urinates. This sensation was not present immediately after surgery. It has been occurring for the last 3 days. She did have severe constipation recently. She is taking OTC Dulcolax prn and her bowel issues have resolved. The RN gave and reviewed and external radiation information packet and a patient resource guide. The patient verbalized understanding. [employer] 01-02-[address] Ocampo reviewed consent with the patient. The patient signed consent. The RN signed as a witness. The RN gave and reviewed skin care instructions with the patient. The patient verbalized understanding. [employer] 01-02-2023 Nurse Note The patient is here at [place] with her boyfriend for a new consult with Dr. Ocampo. The patient denies any previous history of chemotherapy or radiation therapy. The patient denies having a pacemaker or another implantable device. The patient states her appetite has improved as of recent (approx 2 weeks after her surgery). She denies having any appetite until she begin to use marijuana. She reports a 35lb weight loss over the last year. Her nutrition screening score was 8. The RN will make a referral to the Dietitian for her nutritional screening score. She states, I am always tired even before my surgery. Her fatigue level is 4/10. She states her sleeping is terrible. She is unable to sleep related to pain. She is having constant aching pain 7/10 in her right lower abdomen. The area is very tender to touch. She states she was diagnosed with a right flank hematoma by a CT scan. The patient states she was informed that the hematoma is thought to be secondary to the tap block she received. Dr. De La Rosa has informed her to stop taking her po Eliquis. She denies experiencing any vaginal spotting/bleeding, drainage, dryness, pain or odor. She states she has a stabbing sensation/pain at the completion of urinating. She said this sensation is present every time she urinates. This sensation was not present immediately after surgery. It has been occurring for the last 3 days. She did have severe constipation recently. She is taking OTC Dulcolax prn and her bowel issues have resolved. The RN gave and reviewed and external radiation information packet and a patient resource guide. The patient verbalized understanding. Dr. Ocampo reviewed consent with the patient. The patient signed consent. The RN signed as a witness. The RN gave and reviewed skin care instructions with the patient. The patient verbalized understanding. documented in this encounter [facility] 01-01-2023 History of Present illness Narrative Postop visit Status post abdominal radical hysterectomy bilateral salpingectomy and bilateral for proxy for a stage I B1 endocervical carcinoma. A. SENTINEL LYMPH NODE, RIGHT PELVIC, DISSECTION - -THREE LYMPH NODES NEGATIVE FOR METASTATIC CARCINOMA (0/3) B. 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 -PROLIFERATIVE PHASE ENDOMETRIUM -UNREMARKABLE BILATERAL FALLOPIAN TUBES -UNREMARKABLE PARAMETRIUM -TWO LYMPH PARAMETRIAL NODES NEGATIVE FOR METASTATIC CARCINOMA (0/2) -NEGATIVE RESECTION MARGINS. C. SENTINEL LYMPH NODE, LEFT PELVIC, DISSECTION - -FIVE LYMPH NODES NEGATIVE FOR METASTATIC CARCINOMA (0/5) at 1417 Comment The tumor was not grossly identified or able to be measured grossly, however was submitted microscopically and found to have significant involvement of 12 tissue blocks. The blocks measure 0.4 cm in thickness. The tumor size is estimated at 4.8 cm based on that information. The radiology report demonstrates a 4.0 cm measurement. Staging is at least pT1b2 based on on the radiographic measurement, but may be slightly larger and fall into the category of pT1b3 using the estimated measurement of 4.8 cm. Please correlate with clinical and operative findings. Synoptic Checklist UTERINE CERVIX: Resection 9th Edition - Protocol posted: 05/25/2021 UTERINE CERVIX: TRACHELECTOMY, HYSTERECTOMY, PELVIC EXENTERA - All Specimens SPECIMEN Procedure Radical hysterectomy Bilateral salpingectomy Hysterectomy Type Abdominal TUMOR Tumor Site Circumfrential Tumor Size Greatest Dimension (Centimeters): 4.8 (estimated, see comment) cm Additional Dimension (Centimeters) 1.6 cm 1.1 cm Histologic Type Adenocarcinoma, NOS Histologic Type Comment P16 is pending for evalaution of HPV association. Histologic Grade G1, well differentiated Depth of Stromal Invasion 11 mm Extent of Depth of Stromal Invasion Deep one-third Horizontal Extent of Stromal Invasion 18 mm Duarte System for Invasion Not applicable Other Tissue / Organ Involvement Not identified Lymphovascular Invasion Present MARGINS Margin Status for Invasive Carcinoma All margins negative for invasive carcinoma Closest Margin(s) to Invasive Carcinoma Radial / circumferential: 6-9 oclock area Distance from Invasive Carcinoma to Closest Margin 5 mm Margin Status for HSIL or AIS All margins negative for high-grade squamous intraepithelial lesion (HSIL) and / or adenocarcinoma in situ (AIS) REGIONAL LYMPH NODES Regional Lymph Node Status All regional lymph nodes negative for tumor cells Lymph Nodes Examined Total Number of Pelvic Nodes Examined 10 Number of Pelvic Rudolph Nodes Examined 8 Total Number of Para-aortic Nodes Examined 0 PATHOLOGIC STAGE CLASSIFICATION (pTNM, AJCC 9th Version) Reporting of pT, pN, and (when applicable) pM categories is based on information available to the pathologist at the time the report is issued. As per the AJCC (Chapter 1, 8th Ed.) it is the managing physician s responsibility to establish the final pathologic stage based upon all pertinent information, including but potentially not limited to this pathology report. pT Category pT1b3 Patient did undergo a CT scan which does show a right flank hematoma thought to be secondary to the tap block. This is away from the incision. On exam today the incision is healing nicely. There is tenderness in the right flank, no evidence of fluctuance is noted. The incision is healing nicely. A) stage Ib 3 adenocarcinoma the endocervix status post radical hysterectomy bilateral salpingectomy and sentinel lymph node sampling. Does meet Sedlis criteria for adjuvant radiotherapy P) also discussed with patient that there may be a benefit to adjuvant chemotherapy as well. I did state that that is not yet fully determined if chemotherapy is helpful. I did offer her weekly cisplatin them and she accepted. We will plan on weekly cisplatin 40 mg per metered squared while she is undergoing external beam radiotherapy. Recommended heat pad for the hematoma and continued [id number] medicine. We will also recommend stopping the Eliquis. Pt educated on cisplatin and radiation. Went over nausea/vomiting and calling in [facility] [facility] in [place]. Pt informed of cisplatin being hard on the kidneys and drinking 6-8 glasses of fluids per day. Pt aware of hydration pre and post chemotherapy. Went over diarrhea and constipation side effects. Pt to take imodium for diarrhea and on stool softener currently and informed of adding miralax if needed. Pt informed to call if any ringing in ears and ototoxicity. Pt aware of immunosuppression and importance of hand washing and masks. Pt informed of blood abnormalities and labs prior to chemotherapy. Pt given chemo therapy binder. Went over supportive services available to pt. All of the patients and boyfriends questions were answered. Will wait for radiation to call to schedule cisplatin. Will mail chemo calendar to pt once all scheduled. documented in this encounter [facility] 01-01-2023 Miscellaneous Notes Addended by: AVEL ZEPEDA on: 01/01/2023 12:01 PM Modules accepted: Orders documented in this encounter [facility] 01-01-2023 Note Addended by: AVEL JACOBSON on: 01/01/2023 12:01 PM Modules accepted: Orders [facility] 01-01-2023 Note Addended by: AVEL JACOBSON on: 01/01/2023 12:01 PM Modules accepted: Orders [facility] 12-26-2022 Telephone encounter Note Patient back patient is still experiencing severe pain in her right side of her abdomen postoperatively. Patient does state that she has cut way down on the pain pills and that she is starting to feel better and the pain is starting to lessen. Patient is taking Tylenol as needed also. Patient is also using heat and abdominal binder for support. Will refill pain medication for 3 more days. OARRS report ran. Patient verbalizes understanding [facility] 12-26-2022 Miscellaneous Notes Patient back patient is still experiencing severe pain in her right side of her abdomen postoperatively. Patient does state that she has cut way down on the pain pills and that she is starting to feel better and the pain is starting to lessen. Patient is taking Tylenol as needed also. Patient is also using heat and abdominal binder for support. Will refill pain medication for 3 more days. OARRS report ran. Patient verbalizes understanding documented in this encounter [facility] 12-26-2022 Miscellaneous Notes Patients mother called in states her daughter is still having a lot of pain and she is out of pain medication and needs a refill she uses [facility] in [place] documented in this encounter [facility] 12-26-2022 Telephone encounter Note Patients mother called in states her daughter is still having a lot of pain and she is out of pain medication and needs a refill she uses [facility] in [place] [facility] 12-24-2022 History of Present illness Narrative Chief Complaint Patient presents with Follow-up ER follow up for RLQ pain, imaging was preformed and in pacs History of the Present Illness: Corey Perla is a 32 y.o. who presents to the office for post-operative evaluation. She underwent RADICAL HYSTERECTOMY WITH BILATERAL SALPINGECTOMY, BILATERAL PELVIC SENTINEL LYMPH NODE BIOPSY WITH ICG PROTOCOL LYMPHANGIOGRAPHY FOR IDENTIFICATION SENTINEL NODE ROBOTIC (XI) LAPAROSCOPY PELVIC LYMPHADENECTOMY WITH STEVEN-AORTIC SAMPLING on 12/17/22 and final pathology showed: Final Diagnosis A. SENTINEL LYMPH NODE, RIGHT PELVIC, DISSECTION - -THREE LYMPH NODES NEGATIVE FOR METASTATIC CARCINOMA (0/3) B. 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 -PROLIFERATIVE PHASE ENDOMETRIUM -UNREMARKABLE BILATERAL FALLOPIAN TUBES -UNREMARKABLE PARAMETRIUM -TWO LYMPH PARAMETRIAL NODES NEGATIVE FOR METASTATIC CARCINOMA (0/2) -NEGATIVE RESECTION MARGINS. C. SENTINEL LYMPH NODE, LEFT PELVIC, DISSECTION - -FIVE LYMPH NODES NEGATIVE FOR METASTATIC CARCINOMA Interval History: Since her surgery she has been doing well and is without complaints. She denies fevers, chills, nausea, vomiting,or bladder dysfunction. No drainage from incisions. No abnormal vaginal bleeding or discharge. Presents today after being seen in the emergency room last night for 10 out of 10 right lower quadrant pain. Was diagnosed with a hematoma from a CT scan. Patient states she is doing a little better today. I did recommend and encouraged using heat on her abdomen and also a abdominal binder for extra support. Patient states she has also been constipated, I did give her a bowel regimen. Explained to patient that this can be slow healing and will continue to use Tylenol and Dilaudid for breakthrough pain. 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 Physical Exam Constitutional: Appearance: Normal appearance. Pulmonary: Effort: Pulmonary effort is normal. Abdominal: General: Abdomen is flat. Palpations: Abdomen is soft. Comments: Well-healing midline incision without erythema, warmth, induration, or discharge. Steri-strips intact. Neurological: General: No focal deficit present. Mental Status: She is alert and oriented to person, place, and time. Psychiatric: Mood and Affect: Mood normal. Behavior: Behavior normal. Assessment/Plan: 32 y.o. s/p RADICAL HYSTERECTOMY WITH BILATERAL SALPINGECTOMY, BILATERAL PELVIC SENTINEL LYMPH NODE BIOPSY WITH ICG PROTOCOL LYMPHANGIOGRAPHY FOR IDENTIFICATION SENTINEL NODE ROBOTIC (XI) LAPAROSCOPY PELVIC LYMPHADENECTOMY WITH STEVEN-AORTIC SAMPLING for Malignant neoplasm of endocervix. Doing well from a post-operative standpoint. Post-operative instructions reviewed. Patient was given a copy of the pathology report for her records. Call with any worsening symptoms. The patient had an opportunity to ask questions, all of which were answered to the best of my ability. She is in agreement with the above noted plan. Follow up on 01/01/[address] De La Rosa. documented in this encounter [facility] 12-24-[address] scan was done at [facility], Ct is now in PACS. [facility] 12-24-[address] scan was done at [facility], Ct is now in PACS. Called pt to let her know she has an appt this am at 1030. Pt verbalized understanding. documented in this encounter [facility] 12-24-2022 Telephone encounter Note Called pt to let her know she has an appt this am at 1030. Pt verbalized understanding. [facility] 12-23-2022 Telephone encounter Note Called with path report. Also complaining of worsening right sided pain. Is still using Dilaudid [id number]. Recommend that the patient go to the emergency room if she is having increasing pain. I did refill her Dilaudid 2 mg tablets dispense 30 to last for the next 5 days. [facility] 12-23-2022 Miscellaneous Notes Called with path report. Also complaining of worsening right sided pain. Is still using Dilaudid [id number]. Recommend that the patient go to the emergency room if she is having increasing pain. I did refill her Dilaudid 2 mg tablets dispense 30 to last for the next 5 days. Spoke with pt she is uncontrollably crying with rt sided pain. Pt mom states pain not under control. Pt states before she takes dilaudid 2 mg she is 10/10 pain and after dilaudid 8/10 pain. Pt cant rotate motrin and using the 500 mg tylenol. Pt number not working please call moms number at [phone]. Mom would like new pain med called to [facility] in [place]. Patient's sister is calling on behalf of Corey. They have some post surgery questions. documented in this encounter [facility] 12-23-2022 Telephone encounter Note Called patient is having right sided pain. Taking tylenol 500mg two times a day. Currently taking Dilaudid 2 mg. Patient rates her pain 8 out of a 10 on her right side. Instructed patient to continue with pain medication and Tylenol and to add heat for additional comfort. Denies any fever. Patient does state that she is having vasomotor symptoms that started after surgery. Patient states her right side of abdomen is edematous. Instructed to go to emergency room if pain is uncontrollable. Patient verbalizes understanding [facility] Work Phone: 12-23-2022 Miscellaneous Notes Called patient is having right sided pain. Taking tylenol 500mg two times a day. Currently taking Dilaudid 2 mg. Patient rates her pain 8 out of a 10 on her right side. Instructed patient to continue with pain medication and Tylenol and to add heat for additional comfort. Denies any fever. Patient does state that she is having vasomotor symptoms that started after surgery. Patient states her right side of abdomen is edematous. Instructed to go to emergency room if pain is uncontrollable. Patient verbalizes understanding documented in this encounter [facility] 12-23-2022 Telephone encounter Note Spoke with pt she is uncontrollably crying with rt sided pain. Pt mom states pain not under control. Pt states before she takes dilaudid 2 mg she is 10/10 pain and after dilaudid 8/10 pain. Pt cant rotate motrin and using the 500 mg tylenol. Pt number not working please call moms number at [phone]. Mom would like new pain med called to [facility] in [place]. [facility] 12-23-2022 Telephone encounter Note Patient's sister is calling on behalf of Corey. They have some post surgery questions. [facility] 12-17-2022 Note Problem: Pain Goal: My pain/discomfort is manageable Outcome: Progressing Problem: Safety Goal: Patient will be injury free during hospitalization Outcome: Progressing Goal: I will remain free of falls Outcome: Progressing Problem: Daily Care Goal: Daily care needs are met Outcome: Progressing Problem: Psychosocial Needs Goal: Demonstrates ability to cope with hospitalization/illness Outcome: Progressing Goal: Collaborate with me, my family, and caregiver to identify my specific goals Outcome: Progressing Problem: Discharge Barriers Goal: My discharge needs are met Outcome: Progressing [facility] 12-17-2022 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 female , admitted for postoperative evaluation following a AMINA, BSO and SLNS for a diagnosis of endometrial cancer on 12/17. Patient's exparel TAP block was ineffective and had difficulty with post-operative pain management so the acute pain service was consulted for assistance otherwise Hospital course normal, discharged home in stable condition. Follow up in 2 weeks. Discharge instructions reviewed and questions answered. Course of patient: see above Discharge to: Home Wound Care: keep wound clean and dry Recommendations on Discharge: Medications: Medication List START taking these medications acetaminophen 500 MG tablet Commonly known as: Tylenol Extra Strength Take 2 tablets (1,000 mg) by mouth every 6 hours as needed for mild pain (1-3) for up to 10 days. Eliquis 2.5 MG tablet Generic drug: apixaban Take 1 tablet (2.5 mg) by mouth 2 times daily for 28 days. HYDROmorphone 2 MG tablet Commonly known as: Dilaudid Take 1 tablet (2 mg) by mouth every 4 hours as needed for moderate pain (4-6) for up to 5 days. Senexon-S 8.6-50 MG tablet Generic drug: senna-docusate Take 1 tablet by mouth 2 times daily as needed for constipation. CONTINUE taking these medications amoxicillin-clavulanate 500-125 MG tablet Commonly known as: Augmentin Where to Get Your Medications These medications were sent to [facility] [address] [place] [address] Hours: Friday to Friday 10 am to 6 pm acetaminophen 500 MG tablet Eliquis 2.5 MG tablet HYDROmorphone 2 MG tablet Senexon-S 8.6-50 MG tablet Activity: activity as tolerated Diet: regular diet Follow up: [address] De La Rosa Condition on discharge: good and stable Discharge Date: 12/20/22 Comments: Home care, Follow-up care, restrictions reviewed. Noble Wilburn DO 12/20/2022, 3:44 PM [facility] 12-17-2022 Note Patient: Corey Hamilton er Procedure Summary Date: 12/17/22 Room / Location: [address] Operating Room Anesthesia Start: 951 Anesthesia Stop: 120 Procedures: RADICAL HYSTERECTOMY WITH BILATERAL SALPINGECTOMY, BILATERAL PELVIC SENTINEL LYMPH NODE BIOPSY WITH ICG PROTOCOL (Bilateral: Abdomen) LYMPHANGIOGRAPHY FOR IDENTIFICATION SENTINEL NODE (Bilateral) ROBOTIC (XI) LAPAROSCOPY PELVIC LYMPHADENECTOMY WITH STEVEN-AORTIC SAMPLING (Bilateral: Abdomen) Diagnosis: Malignant neoplasm of endocervix (HCC) (Malignant neoplasm of endocervix (HCC) [C53.0]) Surgeons: Fernando De La Rosa MD Responsible Provider: Stephen Johnson MD Anesthesia Type: general, regional ASA Status: 2 Anesthesia Type: general, regional Vitals Value Taken Time BP 130/109 12/17/22 1210 Temp 97 12/17/22 1210 Pulse 72 12/17/22 1210 Resp 12 12/17/22 1210 SpO2 100 12/17/22 1210 Anesthesia Post Evaluation Patient location during evaluation: PACU Patient participation: complete - patient participated Level of consciousness: awake Pain management: adequate Airway patency: patent Dental Injury: no Cardiovascular status: acceptable Respiratory status: acceptable Hydration status: acceptable Nausea/Vomiting: controlled No notable events documented. Patient can be discharged once all PACU criteria has been met. [facility] 12-17-2022 Note Patient: Corey Hamilton er Procedure Summary Date: 12/17/22 Room / Location: [facility] Operating Room Anesthesia Start: 951 Anesthesia Stop: 1207 Procedures: RADICAL HYSTERECTOMY WITH BILATERAL SALPINGECTOMY, BILATERAL PELVIC SENTINEL LYMPH NODE BIOPSY WITH ICG PROTOCOL (Bilateral: Abdomen) LYMPHANGIOGRAPHY FOR IDENTIFICATION SENTINEL NODE (Bilateral) ROBOTIC (XI) LAPAROSCOPY PELVIC LYMPHADENECTOMY WITH STEVEN-AORTIC SAMPLING (Bilateral: Abdomen) Diagnosis: Malignant neoplasm of endocervix (HCC) (Malignant neoplasm of endocervix (HCC) [C53.0]) Surgeons: Fernando De La Rosa MD Responsible Provider: Stephen Johnson MD Anesthesia Type: general, regional ASA Status: 2 Anesthesia Type: general, regional Vitals Value Taken Time BP 130/100 12/17/22 1209 Temp 97 12/17/22 1209 Pulse 65 12/17/22 1209 Resp 12 12/17/22 1209 SpO2 100 12/17/22 1209 Anesthesia Post Evaluation Patient location during evaluation: PACU Patient participation: complete - patient participated Level of consciousness: awake Pain score: 5 Pain management: adequate Airway patency: patent Cardiovascular status: acceptable Respiratory status: acceptable and face mask Hydration status: acceptable No notable events documented. MIPS #[id number] PONV Patient received an inhalational anesthetic (4554F) Patient exhibits three or more risk factors for PONV (4556F) Patient received at leaset 2 prophylactic Rx PONV anti-emtic agents of different classes preop and/or intraop (G9775) MIPS # 424 Perioperative Temperature Management Anesthesia time was 60 minutes or longer (4255F) Anesthesai administered was General (inhalational or TIVA) or Neuraxial block (X0424) At least one body temperature greater than 95.8F/35.5C achieved within the 30 mins immediately prior to or the 15 minutes immediately following anesthesia end time (G9771) MIPS #477 Multimodal Pain Management Not emergent case Patient was administered multimodal pain management (two or more drugs and/or interventions excluding systemic opioids) in the periopeartive period occurring at some time between 6 hours prior to anesthesia start time until discharged from PACU (G2148) [facility] #[id number] Anesthesiology Smoking Abstinence The patient is not a current smoker (e.g. cigarette, cigar, pipe, e-cigarette/vaping/marijuana) I completed my handoff to the receiving clinician during which we: 1. Identified the patient 2. Identified the responsible provider 3. Reviewed the pertinent medical history 4. Discussed the surgical course 5. Reviewed intra-op anesthesia management and issues during anesthesia 6. Set expectations for post-procedure period 7. Allowed opportunity for questions and acknowledgement of understanding. [facility] 12-17-2022 Note Peripheral Block Time Out: 12/17/2022 10:00 AM Patient location during procedure: Procedural Start time: 12/17/2022 10:00 AM End time: 12/17/2022 10:07 AM Reason for block: at surgeon's request and post-op pain management Staffing Performed: CHIEF ENGINEER'S HELPER Resident/CHIEF ENGINEER'S HELPER: DAIJA Calvo CRNA Preanesthetic Checklist Completed: patient identified, IV checked, site marked, risks and benefits discussed, surgical consent, monitors and equipment checked, pre-op evaluation and timeout performed Region: [place] Primary: TAP (60ml of Bupivacaine 0.375% with dexamethasone 0.01% with epinephrine 1:200,000 divided evenly bilaterally) Peripheral Block Patient position: supine Prep: ChloraPrep Patient monitoring: heart rate, quality assurance monitor chassis and continuous pulse ox O2: Room air Laterality: bilateral Injection technique: single-shot Guidance: ultrasound guided -image retained in chart, tip of the needle identified by ultraound during injection. Needle Needle: 21G X 110 mm Additional Notes 12/17/2022 10:00 AM Assessment Injection assessment: negative aspiration for heme, no paresthesia on injection, incremental injection and local visualized surrounding nerve on ultrasound Paresthesia pain: none Heart rate change: no Slow fractionated injection: yes Required Documentation: Relevant anatomy identified (Nerves, Vessels, Muscles), Negative for blood on aspiration, Local anesthetic injected incrementally with intermittent aspiration every 5 mL, No EKG changes noted, No symptoms of toxicity, Local anesthetic spread visualized around nerves or plane., Normal resistance with injection, No paresthesias reported by patient during injection and Local anesthetic injected without difficultyMedications [id number] ne (TAP) syringe - Injection 40 mL - 12/17/2022 10:00:00 AM bupivacaine liposome (Exparel) 1.3 % injection - Injection 20 mL - 12/17/2022 10:00:00 AM [facility] 12-17-2022 Note Airway Date/Time: 12/17/2022 10:03 AM Urgency: scheduled Airway not difficult General Information and Staff Patient location during procedure: Procedural Anesthesiologist: Lester Gant MD Resident/CHIEF ENGINEER'S HELPER: Naomi Cheek APRN - CHIEF ENGINEER'S HELPER Performed: CHIEF ENGINEER'S HELPER Indications and Patient Condition Indications for airway management: anesthesia Sedation level: Asleep Preoxygenated: yes Patient position: sniffing Mask difficulty assessment: 1 - vent by mask Final Airway Details Final airway type: endotracheal airway Successful airway: ETT Cuffed: yes Successful intubation technique: direct laryngoscopy Facilitating devices/methods: intubating stylet Endotracheal tube insertion site: oral Blade: Mcguire Blade size: #3 ETT size (mm): 7.0 Cormack-Lehane Classification: grade I - full view of glottis Placement verified by: chest auscultation and capnometry Measured from: lips ETT to lips (cm): 22 Number of attempts at approach: 1 Ventilation between attempts: BVM Additional Comments Atraumatic, easy mask ventilation, teeth as preop [facility] 12-17-2022 Note Patient: Corey richter Procedure Information Date/Time: 12/17/22 1030 Procedures: RADICAL HYSTERECTOMY WITH BILATERAL SALPINGECTOMY, BILATERAL PELVIC SENTINEL LYMPH NODE BIOPSY WITH ICG PROTOCOL (Bilateral: Abdomen) LYMPHANGIOGRAPHY FOR IDENTIFICATION SENTINEL NODE (Bilateral) ROBOTIC (XI) LAPAROSCOPY PELVIC LYMPHADENECTOMY WITH STEVEN-AORTIC SAMPLING (Bilateral: Abdomen) Location: [address] Operating Room Surgeons: Fernando De La Rosa MD Relevant Problems Other (+) Malignant neoplasm of endocervix (HCC) Past Medical History: Past Medical History: No date: Anxiety Comment: years No date: Cervical mass No date: 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 She has a 7.50 pack-year smoking history. She does not have any smokeless tobacco history on file. ETOH: reports no history of alcohol use. Social History Substance and Sexual Activity Drug Use Never Family History: Family History Problem Relation Name Age of Onset ? Stroke Mother ? Multiple sclerosis Mother ? Diabetes Mother ? Cervical cancer Mother ? Breast cancer Maternal Grandmother ? Breast cancer Paternal Grandmother ? Colon cancer Neg Hx ? Ovarian cancer Neg Hx Screening: Having periods Clinical information reviewed: Tobacco Allergies Meds Med Hx Surg Hx OB Status Fam Hx Soc Hx Physical Exam Airway Mallampati: II TM distance: >3 FB Neck ROM: full endotracheal tube not in place Cardiovascular Dental Comments: Had wisdom teeth extracted 1 week ago Pulmonary Abdominal Anesthesia Plan ASA 2 general and regional The patient is not a current smoker. Anesthetic plan and risks discussed with patient. Use of blood products discussed with who consented to blood products. patient is NPO ALANA Screening Labs: No results found for: WBC, HGB, HCT, MCV, PLT No results found for: NA, K, CL, CO2, BUN, CREATININE, GLUCOSE, CALCIUM, PROT, BILIRUBINFL, ALKPHOS, AST, ALT, EGFR, GLOB Pain Score: 4 No echocardiogram results found for the past 14 days No results found for this or any previous visit. [facility] 12-11-2022 Note Patient: Corey Hamilton er Procedure Information Date/Time: 12/11/22 0900 Procedure: PAT OPTIMIZATION CALL Location: 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 She has a 7.50 pack-year smoking history. She does not have any smokeless tobacco history on file. ETOH: reports no history of alcohol use. Social History Substance and Sexual Activity Drug Use Never Family History: Family History Problem Relation Name Age of Onset ? Stroke Mother ? Multiple sclerosis Mother ? Diabetes Mother ? Cervical cancer Mother ? Breast cancer Maternal Grandmother ? Breast cancer Paternal Grandmother ? Colon cancer Neg Hx ? Ovarian cancer Neg Hx Screening: Having periods Clinical information reviewed: Tobacco Allergies Meds Surg Hx OB Status Physical Exam Airway Mallampati: unable to assess Cardiovascular Dental Comments: Did not go through PAT. Unable to examine Pulmonary Abdominal Anesthesia Plan ASA 3 general and regional The patient is a current smoker. Patient was not previously instructed to abstain from smoking on day of procedure (Unable to give literature as pt did not go through PAT). Patient did not smoke on day of procedure. Short ERAS ALANA Screening Labs: No results found for: WBC, HGB, HCT, MCV, PLT No results found for: NA, K, CL, CO2, BUN, CREATININE, GLUCOSE, CALCIUM, PROT, BILIRUBINFL, ALKPHOS, AST, ALT, EGFR, GLOB Pain Score: 3 No echocardiogram results found for the past 14 days No results found for this or any previous visit. [facility] 11-25-2022 Telephone encounter Note PAT by phone 12.11.2022 at 9 am SX: 12.17.2022 AT 9:30 AM ARRIVAL AT 7:30 AM POST OP 12.30.2022 AT 2:30 PM Folder and instructions given. [facility] 11-25-2022 Miscellaneous Notes PAT by phone 12.11.2022 at 9 am SX: 12.17.2022 AT 9:30 AM ARRIVAL AT 7:30 AM POST OP 12.30.2022 AT 2:30 PM Folder and instructions given. documented in this encounter [facility] 11-22-2022 Note HPI: Corey Perla is a pleasant 32 y.o. female G0 who presents in consultation from Dr. Cobb for further evaluation and management of endocervical adenocarcinoma. She initiallypresented with complaints of abnormal vaginal bleeding. About 1 1/2 years ago started AUB, irreg cycles, clots. The patient states that she is always had irregular menses but noted episodic heavy irregular vaginal bleeding sometimes with clots. Not associated with any specific activity. The patient is known to be high risk HPV 16 positive. Recently presented to the emergency room with severe pelvic and right lower quadrant pain. She describes the pain as being a dull toothache type of pain in the right lower quadrant, does not migrate, is not in the flank, is not associated with any leg swelling. Patient recently underwent exam under anesthesia with D&C hysteroscopy and biopsy, biopsy of the cervix to include ECC shows an invasive endocervical adenocarcinoma. Is also noted some left breast pain when bending over. Patient underwent an ultrasound that did show a normal-sized uterus with a cervical mass. Has noted 15 - 20 lb weight loss. 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 Family History Problem Relation Name Age of Onset Stroke Mother Multiple sclerosis Mother Diabetes Mother Cervical cancer Mother Breast cancer Maternal Grandmother Breast cancer Paternal Grandmother Colon cancer Neg Hx Ovarian cancer Neg Hx Social History Socioeconomic History Marital status: Single Tobacco Use Smoking status: Every Day Packs/day: 0.50 Types: Cigarettes Substance and Sexual Activity Alcohol use: Never Drug use: Never No current outpatient medications on file. No current facility-administered medications for this visit. Allergies as of 11/22/2022 (No Known Allergies) Review of Systems: Review of Systems Constitutional: Positive for appetite change and unexpected weight change. Cardiovascular: Negative for leg swelling. Gastrointestinal: Positive for abdominal pain. Genitourinary: Positive for menstrual problem, pelvic pain and vaginal bleeding. Musculoskeletal: Pain around left breast with bending over Skin: Multiple boils around vulva Hematological: Negative for adenopathy. All other systems reviewed and are negative. BP (P) 136/82 Ht 1.626 m (5' 4) Wt 61 kg (134 lb 8 oz) BMI 23.09 kg/m? Physical Exam: Physical Exam Vitals and nursing note reviewed. Exam conducted with a database marketing manager present. Constitutional: Appearance: Normal appearance. Cardiovascular: Rate and Rhythm: Normal rate and regular rhythm. Pulmonary: Effort: Pulmonary effort is normal. Breath sounds: Normal breath sounds. Abdominal: General: Abdomen is flat. Palpations: Abdomen is soft. There is no mass. Tenderness: There is no abdominal tenderness. Genitourinary: Exam position: Lithotomy position. Labia: Right: Lesion present. Left: Lesion present. Urethra: No urethral lesion. Vagina: Normal. Cervix: Discharge and lesion present. Uterus: Normal. Adnexa: Right adnexa normal and left adnexa normal. Comments: Multiple healing boils on bilateral vulva Cervix is about 3 cm in size, does have a visible lesion in the internal os. No evidence of vaginal or parametrial involvement. Uterus is mobile. Musculoskeletal: Right lower leg: No edema. Left lower leg: No edema. Lymphadenopathy: Upper Body: Right upper body: No supraclavicular adenopathy. Left upper body: No supraclavicular adenopathy. Lower Body: Right inguinal adenopathy present. No left inguinal adenopathy. Comments: Patient does have an enlarged lymph node in the right groin, it is soft, consistent with inflammatory changes. May be related to boils on right vulva Skin: General: Skin is warm and dry. Neurological: Mental Status: She is alert. Psychiatric: Mood and Affect: Mood normal. Behavior: Behavior normal. Ultra sound pictures from referring doctor have been personally reviewed it does show a lesion in the endocervix measuring about 3 cm. Labs: Pathology port has been reviewed showing evidence of an invasive adenocarcinoma as well as being high risk HPV 16 positive No components found for: CBC No components found for: CMP Several pages of records have been reviewed from the referring food and drug research scientist ASSESSMENT/PLAN: Diagnosis Plan 1. 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 Discussed work-up with the patient and her sister. Recommended PET CT scan. If this is negative we did discuss radiation therapy with chemotherapy versus surgery. We discussed the pros and cons of both approaches. She would like to proceed with a radical hysterectomy bilateral salpin (more content not included)... [facility] 11-22-2022 History of Present illness Narrative HPI: Corey Perla is a pleasant 32 y.o. female G0 who presents in consultation from Dr. Cobb for further evaluation and management of endocervical adenocarcinoma. She initiallypresented with complaints of abnormal vaginal bleeding. About 1 1/2 years ago started AUB, irreg cycles, clots. The patient states that she is always had irregular menses but noted episodic heavy irregular vaginal bleeding sometimes with clots. Not associated with any specific activity. The patient is known to be high risk HPV 16 positive. Recently presented to the emergency room with severe pelvic and right lower quadrant pain. She describes the pain as being a dull toothache type of pain in the right lower quadrant, does not migrate, is not in the flank, is not associated with any leg swelling. Patient recently underwent exam under anesthesia with D&C hysteroscopy and biopsy, biopsy of the cervix to include ECC shows an invasive endocervical adenocarcinoma. Is also noted some left breast pain when bending over. Patient underwent an ultrasound that did show a normal-sized uterus with a cervical mass. Has noted 15 - 20 lb weight loss. 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 Family History Problem Relation Name Age of Onset Stroke Mother Multiple sclerosis Mother Diabetes Mother Cervical cancer Mother Breast cancer Maternal Grandmother Breast cancer Paternal Grandmother Colon cancer Neg Hx Ovarian cancer Neg Hx Social History Socioeconomic History Marital status: Single Tobacco Use Smoking status: Every Day Packs/day: 0.50 Types: Cigarettes Substance and Sexual Activity Alcohol use: Never Drug use: Never No current outpatient medications on file. No current facility-administered medications for this visit. Allergies as of 11/22/2022 (No Known Allergies) Review of Systems: Review of Systems Constitutional: Positive for appetite change and unexpected weight change. Cardiovascular: Negative for leg swelling. Gastrointestinal: Positive for abdominal pain. Genitourinary: Positive for menstrual problem, pelvic pain and vaginal bleeding. Musculoskeletal: Pain around left breast with bending over Skin: Multiple boils around vulva Hematological: Negative for adenopathy. All other systems reviewed and are negative. BP (P) 136/82 Ht 1.626 m (5' 4) Wt 61 kg (134 lb 8 oz) BMI 23.09 kg/m Physical Exam: Physical Exam Vitals and nursing note reviewed. Exam conducted with a database marketing manager present. Constitutional: Appearance: Normal appearance. Cardiovascular: Rate and Rhythm: Normal rate and regular rhythm. Pulmonary: Effort: Pulmonary effort is normal. Breath sounds: Normal breath sounds. Abdominal: General: Abdomen is flat. Palpations: Abdomen is soft. There is no mass. Tenderness: There is no abdominal tenderness. Genitourinary: Exam position: Lithotomy position. Labia: Right: Lesion present. Left: Lesion present. Urethra: No urethral lesion. Vagina: Normal. Cervix: Discharge and lesion present. Uterus: Normal. Adnexa: Right adnexa normal and left adnexa normal. Comments: Multiple healing boils on bilateral vulva Cervix is about 3 cm in size, does have a visible lesion in the internal os. No evidence of vaginal or parametrial involvement. Uterus is mobile. Musculoskeletal: Right lower leg: No edema. Left lower leg: No edema. Lymphadenopathy: Upper Body: Right upper body: No supraclavicular adenopathy. Left upper body: No supraclavicular adenopathy. Lower Body: Right inguinal adenopathy present. No left inguinal adenopathy. Comments: Patient does have an enlarged lymph node in the right groin, it is soft, consistent with inflammatory changes. May be related to boils on right vulva Skin: General: Skin is warm and dry. Neurological: Mental Status: She is alert. Psychiatric: Mood and Affect: Mood normal. Behavior: Behavior normal. Ultra sound pictures from referring doctor have been personally reviewed it does show a lesion in the endocervix measuring about 3 cm. Labs: Pathology port has been reviewed showing evidence of an invasive adenocarcinoma as well as being high risk HPV 16 positive No components found for: CBC No components found for: CMP Several pages of records have been reviewed from the referring food and drug research scientist ASSESSMENT/PLAN: Diagnosis Plan 1. 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 Discussed work-up with the patient and her sister. Recommended PET CT scan. If this is negative we did discuss radiation therapy with chemotherapy versus surgery. We discussed the pros and cons of both approaches. She would like to proceed with a radical hysterectomy bilateral salpingectomy and sentinel lymph node sampling. I did discuss the risk of major abdominal surgery to include bleeding infection damage to other organs as well as the potential need for adjuvant radiotherapy and chemotherapy pending pathology report. All the patient's questions were answered to the best my ability. Total time spent in counseling patient as well as coordination of care and review of multiple medical records was 45 minutes documented in this encounter [facility] 11-15-2022 Note [facility] General Ambulatory Surgery Adult Home Going Instructions Following Surgery with Anesthesia After surgery you will be allowed to go home when you are awake, stable, taking fluids well, and without complications. The anesthesia medications used during surgery may cause you to feel dizzy, weak, or drowsy for up to 24 hours. For your safety, during the first 24 hours following an anesthetic: ? Have a responsible adult with you ? DO NOT drive a car, operate machinery, or use power tools ? DO NOT take public transportation if you are alone ? DO NOT drink alcohol, including beer or wine ? DO NOT sign important papers or make important decisions ? DO NOT take medication that has not been prescribed by your care provider ? Only take [id number] or prescription medications as directed ? Slowly resume diet ? Activity as directed by your surgeon ? Use extra care climbing stairs or walking with crutches If you have questions or problems that seem to be related to the anesthetic, call the hospital at [phone] and ask for the DIE ATTACHING MACHINE TENDER tailer in or anesthesiologist. Thank you for the privilege and opportunity to participate in your care. We wish you good health, Your Anesthesia Team General Information & when to contact the surgeon: ? If you experience nausea and vomiting, eat clear soups, mild foods, and liquids for up to 12-48 hours until symptoms of nausea and vomiting are gone. Do not smoke. Call the surgeon for uncontrolled nausea and vomiting. ? Pain does not mean that something is wrong, or the surgery did not go well. Do not wait until the pain gets bad to start taking pain medication. Increase activity each day as directed by surgeon as this increases blood flow to promote healing. Take short walks, rest when feeling tired. Do not move quickly or lift anything heavy until you feel better. Call the surgeon if pain gets worse or is not controlled by the medicine. ? Perform coughing and deep breathing while splinting your incision as demonstrated by your nurse. This will prevent pneumonia. ? Drink throughout the day and avoid alcohol or excessive caffeine to prevent difficulty urinating. If you cannot urinate for 8 hours or if it becomes painful, contact the surgeon as soon as possible. ? It is common to have some minor bleeding, however, if you have bleeding that starts again, gets worse such as soaking bandages over 2-4 hours, call the surgeon as soon as possible. If uncontrollable, call 911. ? Contact the surgeon as soon as possible or seek medical attention with signs of infection that include fever of 101 F (38 C), increased pain, swelling, warmth or redness in the surgical area, red streaks leading from the area, pus or foul-smelling drainage coming from the wound. IF AN EMERGENCY DEVELOPS AND YOU ARE UNABLE TO REACH YOUR DOCTOR, GO TO THE NEAREST EMERGENCY DEPARTMENT OR CALL 911. SEEK IMMEDIATE MEDICAL CARE IF YOU: ? Develop a rash ? Have difficulty breathing ? Have chest pain Think you are having an allergic reaction Rev: 2020__ iron carrier Dilation and Curettage: What to Expect at Home Your Recovery Dilation and curettage (D&C) is a procedure to remove tissue from the inside of the uterus. The doctor used a curved tool, called a curette, to gently scrape tissue from your uterus. You are likely to have a backache, or cramps similar to menstrual cramps, and pass small clots of blood from your vagina for the first few days. You may have light vaginal bleeding for several weeks after the procedure. You will probably be able to go back to most of your normal activities in 1 or 2 days. This care sheet gives you a general idea about how long it will take for you to recover. But each person recovers at a different pace. Follow the steps below to get better as quickly as possible. How can you care for yourself at home? Activity ? Rest when you feel tired. Getting enough sleep will help you recover. ? Most women are able to return to work the day after the procedure. ? You may have some light vaginal bleeding. Use sanitary pads until you stop bleeding. Using pads makes it easier to monitor your bleeding. Do not rinse your vagina with fluid (douche). ? Ask your doctor when it is okay for you to have sex. Diet ? You can eat your normal diet. If your stomach is upset, try bland, low-fat foods like plain rice, broiled chicken, toast, and yogurt. ? Drink plenty of fluids (unless your doctor tells you not to). Medicines ? Your doctor will tell you if and when you can restart your medicines. You will also get instructions about taking any new medicines. ? If you take aspirin or some other blood thinner, ask your doctor if and when to start taking it again. Make sure that you understand exactly what your doctor wants you to do. ? Be safe with medicines. T (more content not included)... [facility] 11-15-2022 Note BILL Education Entere d On: 11/15/2022 11:32 EST Performed On: 11/15/2022 12:30 EST by America Diego RN General / Required Barriers to Learning : None evident TeachBack Methodology : TeachBack, Explanation America Diego RN - 11/15/2022 11:32 EST Education Nursing General Required GRID Call Light Use : Verbalizes understanding Discharge Plan : Verbalizes understanding Fall Risk : Verbalizes understanding Orientation to Unit/Room : Verbalizes understanding Pain Management : Verbalizes understanding Plan of Care : Verbalizes understanding Safety : Verbalizes understanding Speakup : Verbalizes understanding America Diego RN - 11/15/2022 11:32 EST [facility] 11-15-[address] Entered On: 10/31/2022 10:46 EST Performed On: 11/15/2022 12:28 EST by Sanchez Henderson RN Infection Screening Travel outside [place] within past 30 days : No Exposure AND/OR close contact with a person under investigation or laboratory-confirmed COVID-19 individual within 14 days of symptom onset AND/OR any of the following: : No Do you live/work in a high risk situation (congregated living, hemodialysis, infusion clinic, jail, assisted living, retirement, homeless intermediate, etc.)? : No America Diego RN - 11/15/2022 11:48 EST Checklist NPO Since : 11/15/2022 00:01 EST America Diego RN - 11/15/2022 12:28 EST America Diego RN - 11/15/2022 12:28 EST Valuables Prechecklist Grid Valuables with Patient Jewelry : Bracelet, Necklace, Rings (Comment: all jewelry given to sister Wilfrido [America Diego RN - 11/15/2022 11:48 EST] ) Comment (Comment: belongings to locker jewerly to sister Lizabeth [America Diego RN - 11/15/2022 11:48 EST] ) America Diego RN - 11/15/2022 11:48 EST Procedure Location : Surgery America Diego RN - 11/15/2022 11:30 EST America Diego RN - 11/15/2022 11:30 EST Surgery Prep Grid Makeup and Jewelry Removed : Yes Nail Central African Removed : Yes Wearing Patient Gown/Street Clothes Removed : Yes America Diego RN - 11/15/2022 11:48 EST CHG Cloth Prep in BILL : N/A America Diego RN - 11/15/2022 11:30 EST Patient Rights Grid Anesthesia Consent Signed : Yes (Comment: per anesthesia [America Diego RN - 11/15/2022 11:30 EST] ) Surgical Consent Signed : Yes America Diego RN - 11/15/2022 11:30 EST Procedure Checklist is completed for: : Hysteroscopy Dilatation and Curettage, Cervical Loop Electrosurgical Excision Proceduer of Cold Knife Cone Biopsy Sanchez Henderson RN - 10/31/2022 15:08 EST Allergy (As Of: 11/15/2022 12:29:36 EST) Allergies (Active) No Known Allergies Estimated Onset Date: Unspecified ; Created By: Munir Oglesby RN; Reaction Status: Active ; Category: Drug ; Substance: No Known Allergies ; Type: Allergy ; Updated By: Munir Oglesby RN; Reviewed Date: 11/15/2022 12:23 EST Beta Saran Beta Saran History : Patient does not take a Beta Saran America Diego RN - 11/15/2022 12:28 EST Protocols Patient Safety Grid ID Band on and Verified : Yes America Diego RN - 11/15/2022 12:28 EST Fall Risk Chain Maker Loom Control : Yes Review of Labs : Yes HCG / UPREG : Yes (Comment: On admit [Sanchez Hendreson RN - 10/31/2022 10:43 EST] ) Sanchez Henderson RN - 11/15/2022 11:30 EST HCT : Yes (Comment: Georgette 10/31/22 [Sanchez Henderson RN - 10/31/2022 10:43 EST] ) Sanchez Henderson RN - 10/31/2022 10:43 EST Current H&P in Medical Record : Yes (Comment: Georgette 10/31/22 [Sanchez Henderson RN - 10/31/2022 10:43 EST] ) Sanchez Henderson RN - 11/13/2022 7:27 EST Verification DCP GENERIC CODE Sequential Compression Device : Yes Family Waiting : Yes Can Surgeon Speak With Family : Yes America Diego RN - 11/15/2022 12:28 EST H&P Update Within 24 hrs on New Admits : Yes America Diego RN - 11/15/2022 11:30 EST Sleep Apnea : No Preoperative Orders Complete : Yes Mode of Arrival : Ambulatory America Diego RN - 11/15/2022 11:30 EST Anesthesia/Transfusions Anesthesia/Transfusions : Unknown Sanchez Henderson RN - 10/31/2022 11:05 EST Accept Blood Products if Necessary : Yes Sanchez Henderson RN - 10/31/2022 10:43 EST Advance Directive Advanced Directives : No Advance Directive Additional Information : No Sanchez Henderson RN - 10/31/2022 10:43 EST Surgical Clipper Prep Surgery Clipper Prep : NA America Diego RN - 11/15/2022 11:30 EST [facility] 11-01-2022 Note Patient: LIVAN PERLA Age: 32 years Sex: Female : 1990 Associated Diagnoses: None Author: ALENA HUTTON CNP Basic Information Source of history: Self. Chief Complaint Pelvic pain History of Present Illness This pleasant G0 32-year-old female reports going a full year with oligomenorrhea. On 2022 she presented to the emergency room with severe right lower quadrant pain and heavy bleeding. An ultrasound was done which revealed a cervical mass. Her last Pap was done in November 2021 which was negative but HPV 16 positive. Colposcopy was done which revealed HPV [address] Cobb is recommending a hysteroscopy D&C, cervical LEEP or cold knife cone biopsy. The patient is agreeable The patient denies any personal or known family history of anesthesia problems. Histories Past Medical History: 1. Unremarkable Family History: Mother: Dx:35 Cervical cancer.. Diabetes.. Grandmother: Paternal () Age at unknown. Breast cancer.. Procedure history: Gardasil vaccine series completed in 2003 at 14 Years. [place] teeth extraction. Social History Social & Psychosocial History Social History Alcohol Denies Alcohol Use Sexual Other contraceptive use: none. Substance Abuse Denies Substance Abuse Tobacco 10 or more cigarettes (1/2 pack or more)/day in last 30 days Tobacco Use:. Psychosocial History No active psychosocial history has been recorded . 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 Health Status Include (Selected) Allergic Reactions (All) No Known Allergies. Current medications: None Review of Systems Constitutional: No fever. Ear/Nose/Mouth/Throat: No nasal congestion, No sore throat. Respiratory: No shortness of breath, No cough. Cardiovascular: No chest pain, No peripheral edema. Gastrointestinal: No diarrhea, No constipation, No heartburn, No abdominal pain. Genitourinary: Negative except as documented in history of present illness, No dysuria, No hematuria. Hematology/Lymphatics: No bleeding tendency. Endocrine: No cold intolerance, No heat intolerance. Immunologic: No recurrent fevers. Musculoskeletal: No back pain, No muscle pain. Integumentary: No rash, No breakdown, No skin lesion. Neurologic: Alert and oriented X4. Physical Examination VS/Measurements Vital Signs (last 24 hrs) Last Charted Heart Rate Peripheral 74 bpm (OCT 31:) Resp Rate 16 br/min (OCT 31:) SBP 120 mmHg (OCT 31:) DBP 80 mmHg (OCT 31:) BMI 23.47 (OCT 31:) General: Alert and oriented. Eye: Pupils are equal, round and reactive to light. HENT: Normocephalic, Normal hearing. Neck: Supple, Non-tender. Respiratory: Lungs are clear to auscultation, Respirations are non-labored, Breath sounds are equal. Cardiovascular: Normal rate, Regular rhythm, No murmur, Good pulses equal in all extremities, Normal peripheral perfusion. Gastrointestinal: Soft, Non-distended, Normal bowel sounds, Tenderness with palpation of the right lower quadrant. Genitourinary: No costovertebral angle tenderness. Lymphatics: No lymphadenopathy neck, axilla, groin. Musculoskeletal: Normal range of motion, Normal strength, No tenderness, No swelling, No deformity, Normal gait. Integumentary: Warm, Dry, Douglass. Neurologic: Alert, Oriented, Normal sensory, Normal motor function. Cognition and Speech: Oriented, Speech clear and coherent. Psychiatric: Cooperative, Appropriate mood & affect. Review / Management Laboratory Results Today's Lab Results 10/31/2022 11:15 EST HCT 40.0 % NORMAL Impression and Plan Diagnosis 1. HPV infection 2. Tobacco dependence 3. Preop exam. Plan Pre-op diagnosis HPV infection Scheduled for surgery with Dr. Cobb on November 15, 2021 for a hysteroscopy D&C, cervical LEEP or cold knife cone biopsy RCRI of MACE-0.4% This note was completed with voice recognition technology. Verbal misinterpretations may occur. Electronically Co-Signed by: ALENA HUTTON CNP on 10/31/2022 12:42 EST Electronically Co-Signed by: ALENA HUTTON CNP on 11/01/2022 08:25 EST [facility] 10-31-2022 Note BILL Education Entere d On: 10/31/2022 10:44 EST Performed On: 10/31/2022 10:43 EST by Sanchez Henderson RN General / Required Barriers to Learning : None evident TeachBack Methodology : Explanation, Printed Material Sanchez Henderson RN - 10/31/2022 10:43 EST Education Nursing General Required GRID Pain Management : Verbalizes understanding Speakup : Verbalizes understanding Sanchez Henderson RN - 10/31/2022 10:43 EST Topic Specific Education Medication Management GRID Pain Can Be Managed,Relieved : Verbalizes understanding Sanchez Henderson RN - 10/31/2022 10:43 EST Education Respiratory Care Nursing GRID Cough/Deep Breathing : Verbalizes understanding Sanchez Henderson RN - 10/31/2022 10:43 EST Infection Control Education Dialysis Surgery - Hospital form # [id number] : Verbalizes understanding Sanchez Henderson RN - 10/31/2022 10:43 EST Pain Pain Education Topics Grid Pain Assessment Tool : Verbalizes understanding Pain Can Be Managed/Relieved : Verbalizes understanding Sanchez Henderson RN - 10/31/2022 10:43 EST Pre Procedure / Surgery Education Procedures Tests Exams GRID Anesthesia/Sedation : Verbalizes understanding NPO : Verbalizes understanding Preoperative Instructions : Verbalizes understanding Preprocedure Tests/Labs : Verbalizes understanding Preprocedure Diet : Verbalizes understanding Sanchez Henderson RN - 10/31/2022 10:43 EST [facility] 2022 Note ED Nursing Discharge Summary Entered On: 2022 12:43 EST Performed On: 2022 12:12 EST by Karina Encinas RN [place] Information [id number] ED IV's : No IV ED IV Site Assessment : No IV ED Vitals Completed : N/A ED Final Assessment Completed : Yes ED Progress Note Completed : Yes Complete all PRN/Pain response forms? : N/A ED Disassociate Patient from Monitor : N/A Updated Depart Time : No (not needed time is correct) ED Belongings sent w patient [id number] : Not applicable Karina Encinas RN - 2022 12:43 EST Education TeachBack Methodology : Explanation, Printed Material Barriers to Learning : None evident Karina Encinas RN - 2022 12:43 EST ED Assistance Summary Assistance Given? : No Karina Encinas RN - 2022 12:43 EST [facility] 2022 Note CLINICAL DATA: PROCEDURE: US PELVIS TRANSVAGINAL dated 2022 8:15 AM TRANSFER AND PUMPHOUSE OPERATOR CLINICAL HISTORY: Female 32 years of age. pelvic pain/bleeding;PELVIC PAIN COMPARISON: 11/18/2021 TECHNIQUE: Transvaginal imaging was performed FINDINGS: Uterus: The uterus is morphologically normal and measures 8.2 x 2.8 x 4.4 cm. Is a echogenic spherical mass in the cervix with irregular margins measuring 4 x 2.8 x 2.4 cm. It is suspicious for an cervical neoplasm or dilated nabothian cyst. The myometrium has homogeneous echotexture, there are no discrete masses. Endometrium: The endometrium is discrete, hyperechoic, and measures 5 mm. Ovaries: The ovaries have a normal echotexture and morphology. The right ovary measures 2.9 x 2.7 x 2.6 cm. The left ovary measures 3.9 x 2.2 x 2.3 cm The ovaries demonstrate normal color Doppler activity and spectral Doppler waveform. FLUID:No free pelvic fluid is seen. IMPRESSION: 1. Indeterminate 4 cm cervical mass neoplasm versus dilated nabothian cyst. 2. Remainder normal. Electronically signed by: Pedro Mcdonald MD 2022 9:37 AM TRANSFER AND PUMPHOUSE OPERATOR Workstation: [id number] Technologist: Dictated By: PEDRO MCDONALD MD Signed By: PEDRO MCDONALD MD Signed Out: 10/01/22 11:22:30 [facility] 2022 Note CLINICAL DATA: PROCEDURE: US PELVIS TRANSVAGINAL dated 2022 8:15 AM TRANSFER AND PUMPHOUSE OPERATOR CLINICAL HISTORY: Female 32 years of age. pelvic pain/bleeding;PELVIC PAIN COMPARISON: 11/18/2021 TECHNIQUE: Transvaginal imaging was performed FINDINGS: Uterus: The uterus is morphologically normal and measures 8.2 x 2.8 x 4.4 cm. Is a echogenic spherical mass in the cervix with irregular margins measuring 4 x 2.8 x 2.4 cm. It is suspicious for an cervical neoplasm or dilated nabothian cyst. The myometrium has homogeneous echotexture, there are no discrete masses. Endometrium: The endometrium is discrete, hyperechoic, and measures 5 mm. Ovaries: The ovaries have a normal echotexture and morphology. The right ovary measures 2.9 x 2.7 x 2.6 cm. The left ovary measures 3.9 x 2.2 x 2.3 cm The ovaries demonstrate normal color Doppler activity and spectral Doppler waveform. FLUID:No free pelvic fluid is seen. IMPRESSION: 1. Indeterminate 4 cm cervical mass neoplasm versus dilated nabothian cyst. 2. Remainder normal. 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) [facility] Diagnosis Stage I adenocarcinoma of cervix (CMS/HCC) (HCC) [facility] Diagnosis Stage I adenocarcinoma of cervix (CMS/HCC) (HCC) Malignant neoplasm of endocervix (HCC) Malignant neoplasm of endocervix Low serum potassium level [facility] Diagnosis Dysuria- Primary Malignant neoplasm of endocervix (HCC) Malignant neoplasm of endocervix [facility] Diagnosis Stage I adenocarcinoma of cervix (CMS/HCC) (HCC)- Primary Dysuria Malignant neoplasm of endocervix (HCC) Malignant neoplasm of endocervix [facility] Diagnosis Stage I adenocarcinoma of cervix (CMS/HCC) (HCC) [facility] Diagnosis Stage I adenocarcinoma of cervix (CMS/HCC) (HCC)- Primary Stage I adenocarcinoma of cervix (CMS/HCC) (HCC) [facility] Diagnosis Stage I adenocarcinoma of cervix (CMS/HCC) (HCC) Malignant neoplasm of endocervix (HCC) Malignant neoplasm of endocervix [facility] Diagnosis Thrombophlebitis Phlebitis and thrombophlebitis of unspecified site [facility] Diagnosis Malignant neoplasm of endocervix (HCC)- Primary Malignant neoplasm of endocervix [facility] Diagnosis Stage I adenocarcinoma of cervix (CMS/HCC) (HCC) Malignant neoplasm of endocervix (HCC) Malignant neoplasm of endocervix [facility] Diagnosis Stage I adenocarcinoma of cervix (CMS/HCC) (HCC) [facility] Diagnosis Stage I adenocarcinoma of cervix (CMS/HCC) (HCC) Malignant neoplasm of endocervix (HCC) Malignant neoplasm of endocervix [facility] Diagnosis Malignant neoplasm of endocervix (HCC)- Primary Malignant neoplasm of endocervix [facility] Diagnosis Malignant neoplasm of endocervix (HCC)- Primary Malignant neoplasm of endocervix Cystitis Unspecified cystitis Menopausal symptom [facility]* Diagnosis Bladder spasms- Primary Hypertonicity of bladder [facility]* Diagnosis Pelvic floor dysfunction- Primary Pelvic muscle wasting [facility] Diagnosis Encounter for follow-up surveillance of cervical cancer Unspecified follow-up examination documented in this encounter [facility] note* Diagnosis Encounter for follow-up surveillance of cervical cancer- Primary Unspecified follow-up examination Generalized abdominal pain Abdominal pain, generalized Vasomotor symptoms due to menopause documented in this encounter [facility] note* Diagnosis Malignant neoplasm of overlapping sites of cervix (HCC)- Primary documented in this encounter [facility] note* Diagnosis History of cervical cancer- Primary Personal history of malignant neoplasm of cervix uteri Symptomatic menopausal or female climacteric states [N95.1] Symptomatic menopausal or female climacteric states documented in this encounter [facility] note* Diagnosis Malignant neoplasm of endocervix (HCC)- Primary Malignant neoplasm of endocervix documented in this encounter [facility] note* Diagnosis Malignant neoplasm of endocervix (HCC) Malignant neoplasm of endocervix Malignant neoplasm of endocervix (HCC) Malignant neoplasm of endocervix [facility] Diagnosis Post-op pain- Primary Other acute postoperative pain [facility] Diagnosis Post-operative state- Primary Other postprocedural status [facility] Diagnosis Acute postoperative pain Other acute postoperative pain [facility] Diagnosis Post-operative state- Primary Other postprocedural status Stage I adenocarcinoma of cervix (CMS/HCC) (HCC) [facility] Diagnosis Postoperative lower abdominal pain- Primary Stage I adenocarcinoma of cervix (CMS/HCC) (HCC) documented in this encounter [facility] note* Diagnosis Stage I adenocarcinoma of cervix (CMS/HCC) (HCC) [facility] Diagnosis Malignant neoplasm of endocervix (HCC) Malignant neoplasm of endocervix documented in this encounter [facility] Discharge instructions Additional Instructions Your PEDIATRIC SPORTS MEDICINE SPECIALIST office should contact you in the morning to schedule appointment to be seen later in the day. If you have progression/worsening of your symptoms, develop a fever or any other concerns please either go to [facility] or return to our emergency room. [facility] Work Phone: Hospital Discharge instructions* Attachments The following attachments cannot be sent through Care Everywhere. * Radiation Therapy, External ([place]) [facility] Consultation (Routine) - Pending Review Specialty Diagnoses / Procedures Referred By Contac t Referred To Contact Urogynecology / Urology Diagnoses Bladder spasms Procedures CO OFFICE/OUTPATIENT NEW HIGH MDM 60-74 MINUTES Fernando De La Rosa MD [address] [facility] [place] [address] [facility] [address] [place] [address] Referral ID Status Reason Start Date Expiration Date Visits Requested Visits Authorized [id number] Pending Review Specialty Services Required 05/12/2023 05/11/2024 1 1 [facility] ([facility]ative)* Consultation (Routine) - Pending Review Specialty Diagnoses / Procedures Referred By Contac t Referred To Contact Radiation Oncology Diagnoses Stage I adenocarcinoma of cervix (CMS/HCC) (HCC) Procedures CO OFFICE/OUTPATIENT NEW HIGH [facility] 60-74 MINUTES Fernando De La Rosa MD [address] [facility] [place] [address] [facility] [address] [place] [address] Referral ID Status Reason Start Date Expiration Date Visits Requested Visits Authorized [id number] Pending Review Specialty Services Required 01/01/2023 01/01/2024 1 1 [facility] Consultation (Routine) - Pending Review Specialty Diagnoses / Procedures Referred By Contac t Referred To Contact Radiation Oncology Diagnoses Stage I adenocarcinoma of cervix (CMS/HCC) (HCC) Procedures CO OFFICE/OUTPATIENT NEW HIGH MDM 60-74 MINUTES Fernando De La Rosa MD [address] [place] [address] [facility] [address] [place] [address] Referral ID Status Reason Start Date Expiration Date Visits Requested Visits Authorized [id number] Pending Review Specialty Services Required 01/01/2023 01/01/2024 1 1 [facility] Summary Purpose Family History No Family History Records FoundNo Family History Records FoundNo Family History Records FoundNo Family History Records FoundNo Family History Records FoundNo Family History Records FoundNo Family History Records FoundNo Family History Records FoundNo Family History Records Found Advance Directives No Advanced Directives Records Found Advance Directive Response Recorded Date/ Time Living Will No December 23 11:40pm Power of Machine Sand Mixer No December 23, 2022 11:40pm Latest Code Status on File Code Status Date Activated Date Inactivated Comments Full Code 12/17/2022 8:56 AM 12/20/2022 7:00 PM Latest Code Status on File Code Status Date Activated Date Inactivated Comments Full Code 12/17/2022 8:56 AM 12/20/2022 7:00 PM Chief Complaint and Reason for Visit Chief Complaint ABD PAIN Reason for Referral Specialty Diagnoses / Procedures Referred By Contac t Referred To Contact Cardiology Diagnoses Stage I adenocarcinoma of cervix (CMS/HCC) (HCC) Procedures Vascular US upper extremity venous duplex left Inga, Shala, MASS SPECTROSCOPIST - INTERVENTIONAL TECHNOLOGIST [address] [place] [address] Referral ID Status Reason Start Date Expiration Date Visits Requested Visits Authorized [id number] Pending Review Perform Procedure 02/18/2023 08/17/2023 1 1 Referral ID Status Reason Start Date Expiration Date V isits Requested Visits Authorized [id number] Closed Perform Procedure 02/18/2023 08/17/2023 1 1 Specialty Diagnoses / Procedures Referred By Contac t Referred To Contact Cardiology Diagnoses Thrombophlebitis Procedures Vascular US upper extremity venous duplex left Inga, Shala, MASS SPECTROSCOPIST - INTERVENTIONAL TECHNOLOGIST [address] [place] [address] Referral ID Status Reason Start Date Expiration Date V isits Requested Visits Authorized [id number] Closed Perform Procedure 02/19/2023 08/18/2023 1 1 Specialty Diagnoses / Procedures Referred By Contac t Referred To Contact Radiology Diagnoses Stage I adenocarcinoma of cervix (CMS/HCC) (HCC) Malignant neoplasm of endocervix (HCC) Procedures PET/CT skull base to mid thigh Fernando De La Rosa MD [address] [facility] [place] [address] Referral ID Status Reason Start Date Expiration Date Visits Re quested Visits Authorized [id number] Closed 03/13/2023 09/09/2023 1 1 Specialty Diagnoses / Procedures Referred By Contac t Referred To Contact [facility] Diagnoses Pelvic floor dysfunction Procedures [facility] ANORECTAL MANOMETRY ANORECTAL MANOMETRY Rich Lowe MD [address] [place] [address] [facility] [address] [place], [place] [id number] Referral ID Status Reason Start Date Expiration Date Visits Requested Visits Authorized [id number] Authorized Financial Clearance Required - Self Pay Patient Cleared - Qualified 100% FAS 3 01/25/2024 99 99 Specialty Diagnoses / Procedures Referred By Contac t Referred To Contact CT IMAGING Diagnoses Encounter for follow-up surveillance of cervical cancer Procedures CT ABD/PEL W IVCON CT ABD & PELVIS W/CONTRAST Chang Thorpe MD [address] [place] [address] [facility] [place] [address] Referral ID Status Reason Start Date Expiration Date V isits Requested Visits Authorized [id number] Closed Auto-Generate d Referral 12/01/2023 12/30/2024 1 1 Specialty Diagnoses / Procedures Referred By Contac t Referred To Contact Radiology Diagnoses Malignant neoplasm of endocervix (HCC) Procedures PET/CT skull base to mid thigh Fernando De La Rosa MD [address] [facility] [place] [address] Referral ID Status Reason Start Date Expiration Date V isits Requested Visits Authorized [id number] Pending Review 11/22/2022 05/21/2023 1 1 Specialty Diagnoses / Procedures Referred By Contac t Referred To Contact Radiology Diagnoses Malignant neoplasm of endocervix (HCC) Procedures PET/CT skull base to mid thigh Fernando De La Rosa MD [address] [facility] [place] [address] [facility] [address] [place] [address] Referral ID Status Reason Start Date Expiration Date Visits Re quested Visits Authorized [id number] Closed 11/22/2022 05/21/2023 1 1 Specialty Diagnoses / Procedures Referred By Contac t Referred To Contact Radiology Diagnoses Malignant neoplasm of endocervix (HCC) Procedures CT Sim WO Jayy Ocampo MD [address] [place] [address] Referral ID Status Reason Start Date Expiration Date V isits Requested Visits Authorized [id number] Pending Review 01/16/2023 07/15/2023 1 1 Additional Source Comments INFORMATION SOURCE (unrecogn ized section and content) DATE CREATED AUTHOR 05/06/2018 [facility] DATE CREATED AUTHOR AUTHOR'S ORGANIZ ATION 07/11/2020 [facility] DATE CREATED AUTHOR AUTHOR'S ORGANIZ ATION 08/30/2023 [facility] DATE CREATED AUTHOR AUTHOR'S ORGANIZ ATION 09/28/2023 [facility] DATE CREATED AUTHOR AUTHOR'S ORGANIZ ATION 03/25/2024 [facility] DATE CREATED AUTHOR AUTHOR'S ORGANIZ ATION 03/28/2024 [facility] DATE CREATED AUTHOR AUTHOR'S ORGANIZ ATION 05/02/2024 [facility] DATE CREATED AUTHOR AUTHOR'S ORGANIZ ATION [facility]/13/20[facility] Care Teams (unrecognized sec tion and content) Team Status: Active Member Role Status Dates No Primary Care Physician Primary Care Provider Active Team Status: Inactive Member Role Status Dates Dr. Thuy Marshall , DO Emergency Provider Active No Primary Care Physician Primary Care Provider Active Credit Product Analyst Relationship Specialty Start Date End Date Marlen Preciado MD [address] [facility] [place] [address] PCP - General 08/15/15 Fernando De La Rosa MD [address] [facility] [facility] [place] [address] Consulting Physician Gynecologic Oncology 11/21/22 Shala Xiong, MASS SPECTROSCOPIST - INTERVENTIONAL TECHNOLOGIST [address] [facility] [address] [place] [address] Nurse Practitioner Nurse Practitioner 12/23/22 Jayy Ocampo MD [address] [place] [address] Radiation Oncologist Radiation Oncology 01/01/23 Corey Pierson, RN Nurse Navigator Gynecologic Oncology 01/07/23 Credit Product Analyst Relationship Specialty Start Date End Date Marlen Preciado MD [address] [facility] [place] [address] PCP - General 08/15/15 Fernando De La Rosa MD [address] [facility] [place] [address] Consulting Physician Gynecologic Oncology 11/21/22 Shala Xiong, MASS SPECTROSCOPIST - INTERVENTIONAL TECHNOLOGIST [address] [facility] [address] [place] [address] Nurse Practitioner Nurse Practitioner 12/23/22 Jayy Ocampo MD [address] [place] [address] Radiation Oncologist Radiation Oncology 01/01/23 Corey Pierson, RN Nurse Navigator Gynecologic Oncology 01/07/23 Credit Product Analyst Relationship Specialty Start Date End Date Marlen Preciado MD [address] [facility] [place] [address] PCP - General 08/15/15 Fernando De La Rosa MD [address] [facility] [place] [address] Consulting Physician Gynecologic Oncology 11/21/22 Shala Xiong APRN - INTERVENTIONAL TECHNOLOGIST [address] [facility] [address] [place] [address] Nurse Practitioner Nurse Practitioner 12/23/22 Jayy Ocampo MD [address] [place] [address] Radiation Oncologist Radiation Oncology 01/01/23 Corey Pierson, RN Nurse Navigator Gynecologic Oncology 01/07/23 Credit Product Analyst Relationship Specialty Start Date End Date Marlen Preciado MD [address] [facility] [place] [address] PCP - General 08/15/15 Fernando De La Rosa MD [address] [facility] [address] [place] [address] Consulting Physician Gynecologic Oncology 11/21/22 Shala Xiong APRN - INTERVENTIONAL TECHNOLOGIST [address] [facility] [address] [place] [address] Nurse Practitioner Nurse Practitioner 12/23/22 Jayy Ocampo MD [address] [place] [address] Radiation Oncologist Radiation Oncology 01/01/23 Corey Pierson, RN Nurse Navigator Gynecologic Oncology 01/07/23 Credit Product Analyst Relationship Specialty Start Date End Date Marlen Preciado MD [address] [place] [address] PCP - General 08/15/15 Fernando De La Rosa MD [address] [facility] [address] [place] [address] Consulting Physician Gynecologic Oncology 11/21/22 Shala Xiong APRN - INTERVENTIONAL TECHNOLOGIST [address] [facility] [facility] [address] [place] [address] Nurse Practitioner Nurse Practitioner 12/23/22 Jayy Ocampo MD [address] [place] [address] Radiation Oncologist Radiation Oncology 01/01/23 Corey Pierson, RN Nurse Navigator Gynecologic Oncology 01/07/23 Credit Product Analyst Relationship Specialty Start Date End Date Marlen Preciado MD [address], [address] [place] [address] PCP - General 08/15/15 Fernando De La Rosa MD [address] [facility], [address] [place] [address] Consulting Physician Gynecologic Oncology 11/21/22 Shala Xiong APRN - INTERVENTIONAL TECHNOLOGIST [address] [facility] [place] [address] Nurse Practitioner Nurse Practitioner 12/23/22 Jayy Ocampo MD [address] [place] [address] Radiation Oncologist Radiation Oncology 01/01/23 Corey Pierson, RN Nurse Navigator Gynecologic Oncology 01/07/23 Credit Product Analyst Relationship Specialty Start Date End Date Marlen Preciado MD [address], [address] [place] [address] PCP - General 08/15/15 Fernando De La Rosa MD [address] [facility], [address] [place] [address] Consulting Physician Gynecologic Oncology 11/21/22 Shala Xiong MASS SPECTROSCOPIST - INTERVENTIONAL TECHNOLOGIST [address] [facility] [place] [address] Nurse Practitioner Nurse Practitioner 12/23/22 Jayy Ocampo MD [address] [place] [address] Radiation Oncologist Radiation Oncology 01/01/23 Corey Pierson, RN Nurse Navigator Gynecologic Oncology 01/07/23 Credit Product Analyst Relationship Specialty Start Date End Date Marlen Preciado MD [address] [facility], [address] [place] [address] PCP - General 08/15/15 Fernando De La Rosa MD [address] [facility], [address] [place] [address] Consulting Physician Gynecologic Oncology 11/21/22 Shala Xiong APRN - INTERVENTIONAL TECHNOLOGIST [address] [facility] [address] [place] [address] Nurse Practitioner Nurse Practitioner 12/23/22 Jayy Ocampo MD [address] [place] [address] Radiation Oncologist Radiation Oncology 01/01/23 Corey Pierson, RN Nurse Navigator Gynecologic Oncology 01/07/23 Credit Product Analyst Relationship Specialty Start Date End Date Marlen Preciado MD [address] [facility], [address] [place] [address] PCP - General 08/15/15 Fernando De La Rosa MD [address] [facility], [address] [place] [address] Consulting Physician Gynecologic Oncology 11/21/22 Shala Xiong MASS SPECTROSCOPIST - INTERVENTIONAL TECHNOLOGIST [address] [facility] [place] [address] Nurse Practitioner Nurse Practitioner 12/23/22 Jayy Ocampo MD [address] [place] [address] Radiation Oncologist Radiation Oncology 01/01/23 Corey Pierson, RN Nurse Navigator Gynecologic Oncology 01/07/23 Credit Product Analyst Relationship Specialty Start Date End Date Marlen Preciado MD [address] [facility], [address] [place] [address] PCP - General 08/15/15 Fernando De La Rosa MD [address] [facility], [address] [place] [address] Consulting Physician Gynecologic Oncology 11/21/22 Shala Xiong APRN - INTERVENTIONAL TECHNOLOGIST [address] [facility] [place] [address] Nurse Practitioner Nurse Practitioner 12/23/22 Jayy Ocampo MD [address] [place] [address] Radiation Oncologist Radiation Oncology 01/01/23 Corey Pierson, RN Nurse Navigator Gynecologic Oncology 01/07/23 Credit Product Analyst Relationship Specialty Start Date End Date Marlen Preciado MD [address] [facility], [address] [place] [address] PCP - General 08/15/15 Fernando De La Rosa MD [address] [facility], [address] [place] [address] Consulting Physician Gynecologic Oncology 11/21/22 Shala Xiong APRN - INTERVENTIONAL TECHNOLOGIST [address] [facility] [place] [address] Nurse Practitioner Nurse Practitioner 12/23/22 Jayy Ocampo MD [address] [place] [address] Radiation Oncologist Radiation Oncology 01/01/23 Corey Pierson, RN Nurse Navigator Gynecologic Oncology 01/07/23 Credit Product Analyst Relationship Specialty Start Date End Date Marlen Preciado MD [address], [address] [place] [address] PCP - General 08/15/15 Fernando De La Rosa MD [address] [facility], [address] [place] [address] Consulting Physician Gynecologic Oncology 11/21/22 Shala Xiong, MASS SPECTROSCOPIST - INTERVENTIONAL TECHNOLOGIST [address] [facility] [address] [place] [address] Nurse Practitioner Nurse Practitioner 12/23/22 Jayy Ocampo MD [address] [place] [address] Radiation Oncologist Radiation Oncology 01/01/23 Corey Pierson, RN Nurse Navigator Gynecologic Oncology 01/07/23 Credit Product Analyst Relationship Specialty Start Date End Date Marlen Preciado MD [address] [facility], [address] [place] [address] PCP - General 08/15/15 Fernando De La Rosa MD [address] [facility], [address] [place] [address] Consulting Physician Gynecologic Oncology 11/21/22 Shala Xiong, MASS SPECTROSCOPIST - INTERVENTIONAL TECHNOLOGIST [address] [facility] [address] [place] [address] Nurse Practitioner Nurse Practitioner 12/23/22 Jayy Ocampo MD [address] [place] [address] Radiation Oncologist Radiation Oncology 01/01/23 Corey Pierson RN Nurse Navigator Gynecologic Oncology 01/07/23 Credit Product Analyst Relationship Specialty Start Date End Date Marlen Preciado MD [address] [facility], [address] [place] [address] PCP - General 08/15/15 Fernando De La Rosa MD [address] [facility], [address] [place] [address] Consulting Physician Gynecologic Oncology 11/21/22 Shala Xiong MASS SPECTROSCOPIST - INTERVENTIONAL TECHNOLOGIST [address] [facility] [address] [place] [address] Nurse Practitioner Nurse Practitioner 12/23/22 Jayy Ocampo MD [address] [place] [address] Radiation Oncologist Radiation Oncology 01/01/23 Corey Pierson, RN Nurse Navigator Gynecologic Oncology 01/07/23 Credit Product Analyst Relationship Specialty Start Date End Date Marlen Preciado MD [address] [facility], [address] [place] [address] PCP - General 08/15/15 Fernando De La Rosa MD [address] [facility], [address] [place] [address] Consulting Physician Gynecologic Oncology 11/21/22 Shala Xiong, MASS SPECTROSCOPIST - INTERVENTIONAL TECHNOLOGIST [address] [facility] [address] [place] [address] Nurse Practitioner Nurse Practitioner 12/23/22 Jayy Ocampo MD [address] [place] [address] Radiation Oncologist Radiation Oncology 01/01/23 Corey Pierson, RN Nurse Navigator Gynecologic Oncology 01/07/23 Credit Product Analyst Relationship Specialty Start Date End Date Marlen Preciado MD [address] [facility], [address] [place] [address] PCP - General 08/15/15 Fernando De La Rosa MD [address], [address] [place] [address] Consulting Physician Gynecologic Oncology 11/21/22 Shala Xiong APRN - INTERVENTIONAL TECHNOLOGIST [address] [facility] [address] [place] [address] Nurse Practitioner Nurse Practitioner 12/23/22 Jayy Ocampo MD [address] [place] [address] Radiation Oncologist Radiation Oncology 01/01/23 Corey Pierson, RN Nurse Navigator Gynecologic Oncology 01/07/23 Credit Product Analyst Relationship Specialty Start Date End Date Marlen Preciado MD [address] [facility], [address] [place] [address] PCP - General 08/15/15 Fernando De La Rosa MD [address] [facility], [address] [place] [address] Consulting Physician Gynecologic Oncology 11/21/22 Shala Xiong, MASS SPECTROSCOPIST - INTERVENTIONAL TECHNOLOGIST [address] [facility] [address] [place] [address] Nurse Practitioner Nurse Practitioner 12/23/22 Jayy Ocampo MD [address] [place] [address] Radiation Oncologist Radiation Oncology 01/01/23 Corey Pierson, RN Nurse Navigator Gynecologic Oncology 01/07/23 Credit Product Analyst Relationship Specialty Start Date End Date Marlen Preciado MD [address], [address] [place] [address] PCP - General 08/15/15 Fernando De La Rosa MD [address] [facility], [address] [place] [address] Consulting Physician Gynecologic Oncology 11/21/22 Shala Xiong APRN - INTERVENTIONAL TECHNOLOGIST [address] [facility] [address] [place] [address] Nurse Practitioner Nurse Practitioner 12/23/22 Jayy Ocampo MD [address] [place] [address] Radiation Oncologist Radiation Oncology 01/01/23 Corey Pierson, RN Nurse Navigator Gynecologic Oncology 01/07/23 Credit Product Analyst Relationship Specialty Start Date End Date Marlen Preciado MD [address], [address] [place] [address] PCP - General 08/15/15 Fernando De La Rosa MD [address] [facility], [address] [place] [address] Consulting Physician Gynecologic Oncology 11/21/22 Shala Xiong MASS SPECTROSCOPIST - INTERVENTIONAL TECHNOLOGIST [address] [facility] [address] [place] [address] Nurse Practitioner Nurse Practitioner 12/23/22 Jayy Ocampo MD [address] [place] [address] Radiation Oncologist Radiation Oncology 01/01/23 Corey Pierson, RN Nurse Navigator Gynecologic Oncology 01/07/23 Credit Product Analyst Relationship Specialty Start Date End Date Marlen Preciado MD [address], [address] [place] [address] PCP - General 08/15/15 Fernando De La Rosa MD [address] [facility] [address] [place] [address] Consulting Physician Gynecologic Oncology 11/21/22 Shala Xiong APRN - INTERVENTIONAL TECHNOLOGIST [address] [facility] [place] [address] Nurse Practitioner Nurse Practitioner 12/23/22 Jayy Ocampo MD [address] [place] [address] Radiation Oncologist Radiation Oncology 01/01/23 Corey Pierson, RN Nurse Navigator Gynecologic Oncology 01/07/23 Credit Product Analyst Relationship Specialty Start Date End Date Marlen Preciado MD [address] [facility], [address] [place] [address] PCP - General 08/15/15 Fernando De La Rosa MD [address] [facility], [address] [place] [address] Consulting Physician Gynecologic Oncology 11/21/22 Shala Xiong MASS SPECTROSCOPIST - INTERVENTIONAL TECHNOLOGIST [address] [facility] [address] [place] [address] Nurse Practitioner Nurse Practitioner 12/23/22 Jayy Ocampo MD [address] [facility] 140 [place] [address] Radiation Oncologist Radiation Oncology 01/01/23 Corey Pierson, RN Nurse Navigator Gynecologic Oncology 01/07/23 Abbi Barahona MASS SPECTROSCOPIST - INTERVENTIONAL TECHNOLOGIST [address] [facility] [address] [place] [address] Nurse Practitioner Certified Nurse Practitioner 03/03/23 Credit Product Analyst Relationship Specialty Start Date End Date Marlen Preciado MD [address] [facility], [address] [place] [address] PCP - General 08/15/15 Fernando De La Rosa MD [address] [facility], [address] [place] [address] Consulting Physician Gynecologic Oncology 11/21/22 Shala Xiong, MASS SPECTROSCOPIST - INTERVENTIONAL TECHNOLOGIST [address] [facility] [address] [place] [address] Nurse Practitioner Nurse Practitioner 12/23/22 Jayy Ocampo MD [address] [place] [address] Radiation Oncologist Radiation Oncology 01/01/23 Corey Pierson, RN Nurse Navigator Gynecologic Oncology 01/07/23 Abbi Barahona MASS SPECTROSCOPIST - INTERVENTIONAL TECHNOLOGIST [address] [facility] [address] [place] [address] Nurse Practitioner Certified Nurse Practitioner 03/03/23 Credit Product Analyst Relationship Specialty Start Date End Date Marlen Preciado MD [facility], [address] [place] [address] PCP - General 08/15/15 Fernando De La Rosa MD [address] [facility], [address] [place] [address] Consulting Physician Gynecologic Oncology 11/21/22 Shala Xiong, MASS SPECTROSCOPIST - INTERVENTIONAL TECHNOLOGIST [address] [facility] [address] [place] [address] Nurse Practitioner Nurse Practitioner 12/23/22 Jayy Ocampo MD [address] [place] [address] Radiation Oncologist Radiation Oncology 01/01/23 Corey Pierson, RN Nurse Navigator Gynecologic Oncology 01/07/23 Credit Product Analyst Relationship Specialty Start Date End Date Marlen Preciado MD [address] [facility], [address] [place] [address] PCP - General 08/15/15 Fernando De La Rosa MD [address] [facility], [address] [place] [address] Consulting Physician Gynecologic Oncology 11/21/22 Shala Xiong MASS SPECTROSCOPIST - INTERVENTIONAL TECHNOLOGIST [address] [facility] [address] [place] [address] Nurse Practitioner Nurse Practitioner 12/23/22 Jayy Ocampo MD [address] [place] [address] Radiation Oncologist Radiation Oncology 01/01/23 Corey Pierson, RN Nurse Navigator Gynecologic Oncology 01/07/23 Abbi Barahona, MASS SPECTROSCOPIST - INTERVENTIONAL TECHNOLOGIST [address] [facility] [address] [place] [address] Nurse Practitioner Certified Nurse Practitioner 03/03/23 Credit Product Analyst Relationship Specialty Start Date End Date Marlen Preciado MD [address] [facility], [address] [place] [address] PCP - General 08/15/15 Fernando De La Rosa MD [address] [facility], [address] [place] [address] Consulting Physician Gynecologic Oncology 11/21/22 Shala Xiong, MASS SPECTROSCOPIST - INTERVENTIONAL TECHNOLOGIST [address] [facility] [address] [place] [address] Nurse Practitioner Nurse Practitioner 12/23/22 Jayy Ocampo MD [address] [place] [address] Radiation Oncologist Radiation Oncology 01/01/23 Corey Pierson, RN Nurse Navigator Gynecologic Oncology 01/07/23 Abbi Barahona, MASS SPECTROSCOPIST - INTERVENTIONAL TECHNOLOGIST [address] [facility] [address] [place] [address] Nurse Practitioner Certified Nurse Practitioner 03/03/23 Credit Product Analyst Relationship Specialty Start Date End Date Marlen Preciado MD [address] [facility], [address] [place] [address] PCP - General 08/15/15 Fernando De La Rosa MD [address] [facility], [address] [place] [address] Consulting Physician Gynecologic Oncology 11/21/22 Shala Xiong MASS SPECTROSCOPIST - INTERVENTIONAL TECHNOLOGIST [address] [facility] [address] [place] [address] Nurse Practitioner Nurse Practitioner 12/23/22 Jayy Ocampo MD [address] [place] [address] Radiation Oncologist Radiation Oncology 01/01/23 Corey Pierson, RN Nurse Navigator Gynecologic Oncology 01/07/23 Abbi Barahona, MASS SPECTROSCOPIST - INTERVENTIONAL TECHNOLOGIST [address] [facility] [address] [place] [address] Nurse Practitioner Certified Nurse Practitioner 03/03/23 Credit Product Analyst Relationship Specialty Start Date End Date Marlen Preciado MD [address] [facility], [address] [place] [address] PCP - General 08/15/15 Fernando De La Rosa MD [address] [facility], [address] [place] [address] Consulting Physician Gynecologic Oncology 11/21/22 Shala Xiong, MASS SPECTROSCOPIST - INTERVENTIONAL TECHNOLOGIST [address] [facility] [address] [place] [address] Nurse Practitioner Nurse Practitioner 12/23/22 Jayy Ocampo MD [address] [place] [address] Radiation Oncologist Radiation Oncology 01/01/23 Corey Pierson, RN Nurse Navigator Gynecologic Oncology 01/07/23 Abbi Barahona, MASS SPECTROSCOPIST - INTERVENTIONAL TECHNOLOGIST [address] [facility] [address] [place] [address] Nurse Practitioner Certified Nurse Practitioner 03/03/23 Credit Product Analyst Relationship Specialty Start Date End Date Marlen Preciado MD [address] [facility], [address] [place] [address] PCP - General 08/15/15 Fernando De La Rosa MD [address] [facility], [address] [place] [address] Consulting Physician Gynecologic Oncology 11/21/22 Shala Xiong MASS SPECTROSCOPIST - INTERVENTIONAL TECHNOLOGIST [address] [facility] [address] [place] [address] Nurse Practitioner Nurse Practitioner 12/23/22 aJyy Ocampo MD [address] [place] [address] [address] [place] [address] Radiation Oncologist Radiation Oncology 01/01/23 Corey Pierson, RN Nurse Navigator Gynecologic Oncology 01/07/23 Abbi Barahona, MASS SPECTROSCOPIST - INTERVENTIONAL TECHNOLOGIST [address] [facility] [address] [place] [address] Nurse Practitioner Certified Nurse Practitioner 03/03/23 Credit Product Analyst Relationship Specialty Start Date End Date Marlen Preciado MD [address] [facility], [address] [place] [address] PCP - General 08/15/15 Fernando De La Rosa MD [address] [facility], [address] [place] [address] Consulting Physician Gynecologic Oncology 11/21/22 Shala Xiong, MASS SPECTROSCOPIST - INTERVENTIONAL TECHNOLOGIST [address] [facility] [address] [place] [address] Nurse Practitioner Nurse Practitioner 12/23/22 Jayy Ocampo MD [address] [place] [address] Radiation Oncologist Radiation Oncology 01/01/23 Corey Pierson, RN Nurse Navigator Gynecologic Oncology 01/07/23 Abbi Barahona, MASS SPECTROSCOPIST - INTERVENTIONAL TECHNOLOGIST [address] [facility] [address] [place] [address] Nurse Practitioner Certified Nurse Practitioner 03/03/23 Credit Product Analyst Relationship Specialty Start Date End Date Marlen Preciado MD [address] [facility], [address] [place] [address] PCP - General 08/15/15 Fernando De La Rosa MD [address] [place] [address], [address] [place] [address] Consulting Physician Gynecologic Oncology 11/21/22 Shala Xiong, MASS SPECTROSCOPIST - INTERVENTIONAL TECHNOLOGIST [address] [facility] [address] [place] [address] Nurse Practitioner Nurse Practitioner 12/23/22 Jayy Ocampo MD [address] [place] [address] Radiation Oncologist Radiation Oncology 01/01/23 Corey Pierson, RN Nurse Navigator Gynecologic Oncology 01/07/23 Abbi Barahona, MASS SPECTROSCOPIST - INTERVENTIONAL TECHNOLOGIST [address] [facility] [address] [place] [address] Nurse Practitioner Certified Nurse Practitioner 03/03/23 Credit Product Analyst Relationship Specialty Start Date End Date Marlen Preciado MD [address] [facility], [address] [place] [address] PCP - General 08/15/15 Fernando De La Rosa MD [address] [facility], [address] [place] [address] Consulting Physician Gynecologic Oncology 11/21/22 Shala Xiong, MASS SPECTROSCOPIST - INTERVENTIONAL TECHNOLOGIST [address] [facility] [address] [place] [address] Nurse Practitioner Nurse Practitioner 12/23/22 Jayy Ocampo MD [address] [place] [address] Radiation Oncologist Radiation Oncology 01/01/23 Corey Pierson, RN Nurse Navigator Gynecologic Oncology 01/07/23 Abbi Barahona, MASS SPECTROSCOPIST - INTERVENTIONAL TECHNOLOGIST [address] [facility] [address] [place] [address] Nurse Practitioner Certified Nurse Practitioner 03/03/23 Credit Product Analyst Relationship Specialty Start Date End Date Marlen Preciado MD [address] [facility], [address] [place] [address] PCP - General 08/15/15 Fernando De La Rosa MD [address] [facility], [address] [place] [address] Consulting Physician Gynecologic Oncology 11/21/22 Shala Xiong, MASS SPECTROSCOPIST - INTERVENTIONAL TECHNOLOGIST [address] [facility] [address] [place] [address] Nurse Practitioner Nurse Practitioner 12/23/22 Jayy Ocampo MD [address] [place] [address] Radiation Oncologist Radiation Oncology 01/01/23 Corey Pierson, RN Nurse Navigator Gynecologic Oncology 01/07/23 Abbi Barahona, MASS SPECTROSCOPIST - INTERVENTIONAL TECHNOLOGIST [address] [facility] [address] [place] [address] Nurse Practitioner Certified Nurse Practitioner 03/03/23 Credit Product Analyst Relationship Specialty Start Date End Date [address] [place] [address] PCP - General 03/21/23 Fernando De La Rosa MD [address] [facility], [address] [place] [address] Consulting Physician Gynecologic Oncology 11/21/22 Shala Xiong MASS SPECTROSCOPIST - INTERVENTIONAL TECHNOLOGIST [address] [facility] [address] [place] [address] Nurse Practitioner Nurse Practitioner 12/23/22 Jayy Ocampo MD [address] [place] [address] Radiation Oncologist Radiation Oncology 01/01/23 Corey Pierson, RN Nurse Navigator Gynecologic Oncology 01/07/23 Abbi Barahona, MASS SPECTROSCOPIST - INTERVENTIONAL TECHNOLOGIST [address] [facility] [address] [place] [address] Nurse Practitioner Certified Nurse Practitioner 03/03/23 Credit Product Analyst Relationship Specialty Start Date End Date [facility] [address] [place] [address] PCP - General 03/21/23 Fernando De La Rosa MD [address] [facility], [address] [place] [address] Consulting Physician Gynecologic Oncology 11/21/22 Shala Xiong, MASS SPECTROSCOPIST - INTERVENTIONAL TECHNOLOGIST [address] [facility] [address] [place] [address] Nurse Practitioner Nurse Practitioner 12/23/22 Jayy Ocampo MD [address] [place] [address] Radiation Oncologist Radiation Oncology 01/01/23 Corey Pierson, RN Nurse Navigator Gynecologic Oncology 01/07/23 Abbi Barahona, MASS SPECTROSCOPIST - INTERVENTIONAL TECHNOLOGIST [address] [facility] [address] [place] [address] Nurse Practitioner Certified Nurse Practitioner 03/03/23 Credit Product Analyst Relationship Specialty Start Date End Date [facility] [address] [place] [address] PCP - General 03/21/23 Fernando De La Rosa MD [address] [facility], [address] [place] [address] Consulting Physician Gynecologic Oncology 11/21/22 Shala Xiong MASS SPECTROSCOPIST - INTERVENTIONAL TECHNOLOGIST [address] [facility] [address] [place] [address] Nurse Practitioner Nurse Practitioner 12/23/22 Jayy Ocampo MD [address] [place] [address] Radiation Oncologist Radiation Oncology 01/01/23 Corey Pierson, RN Nurse Navigator Gynecologic Oncology 01/07/23 Abbi Barahona MASS SPECTROSCOPIST - [facility] [address] [facility] [address] [place] [address] Nurse Practitioner Certified Nurse Practitioner 03/03/23 Credit Product Analyst Relationship Specialty Start Date End Date [facility] [address] [place] [address] PCP - General 03/21/23 Fernando De La Rosa MD [address] [facility], [address] [place] [address] Consulting Physician Gynecologic Oncology 11/21/22 Shala Xiong, MASS SPECTROSCOPIST - INTERVENTIONAL TECHNOLOGIST 161 [facility] [address] [place] [address] Nurse Practitioner Nurse Practitioner 12/23/22 Jayy Ocampo MD [address] [place] [address] Radiation Oncologist Radiation Oncology 01/01/23 Corey Pierson, RN Nurse Navigator Gynecologic Oncology 01/07/23 Abib Barahona, MASS SPECTROSCOPIST - INTERVENTIONAL TECHNOLOGIST [address] [facility] [address] [place] [address] Nurse Practitioner Certified Nurse Practitioner 03/03/23 Credit Product Analyst Relationship Specialty Start Date End Date [facility] [address] [place] [facility] [place] [address] PCP - General 03/21/23 Fernando De La Rosa MD [address] [facility], [address] [place] [address] Consulting Physician Gynecologic Oncology 11/21/22 Shala Xiong APRN - INTERVENTIONAL TECHNOLOGIST [address] [facility] [address] [place] [address] Nurse Practitioner Nurse Practitioner 12/23/22 Jayy Ocapmo MD [address] [place] [address] Radiation Oncologist Radiation Oncology 01/01/23 Corey Pierson, JAG Nurse Navigator Gynecologic Oncology 01/07/23 Abbi Barahona, MASS SPECTROSCOPIST - INTERVENTIONAL TECHNOLOGIST [address] [facility] [address] [place] [address] Nurse Practitioner Certified Nurse Practitioner 03/03/23 Credit Product Analyst Relationship Specialty Start Date End Date [facility] [address] [place] [facility] [place] [address] PCP - General 03/21/23 Fernando De La Rosa MD [address] [facility], [address] [place] [address] Consulting Physician Gynecologic Oncology 11/21/22 Shala Xiong APRN - INTERVENTIONAL TECHNOLOGIST [address] [facility] [address] [place] [address] Nurse Practitioner Nurse Practitioner 12/23/22 Jayy Ocampo MD [address] [place] [address] Radiation Oncologist Radiation Oncology 01/01/23 Corey Pierson, RN Nurse Navigator Gynecologic Oncology 01/07/23 Abbi Barahona, MASS SPECTROSCOPIST - INTERVENTIONAL TECHNOLOGIST [address] [facility] [address] [place] [address] Nurse Practitioner Certified Nurse Practitioner 03/03/23 Credit Product Analyst Relationship Specialty Start Date End Date [facility] [address] [place] [address], [place] [address] PCP - General 03/21/23 Fernando De La Rosa MD [address] [facility], [address] [place] [address] Consulting Physician Gynecologic Oncology 11/21/22 Shala Xiong MASS SPECTROSCOPIST - INTERVENTIONAL TECHNOLOGIST [address] [facility] [address] [place] [address] Nurse Practitioner Nurse Practitioner 12/23/22 Jayy Ocampo MD [address] [place] [address] Radiation Oncologist Radiation Oncology 01/01/23 Corey Pierson, RN Nurse Navigator Gynecologic Oncology 01/07/23 Abbi Barahona, MASS SPECTROSCOPIST - INTERVENTIONAL TECHNOLOGIST [address] [facility] [address] [place] [address] Nurse Practitioner Certified Nurse Practitioner 03/03/23 Credit Product Analyst Relationship Specialty Start Date End Date Marlen Preciado MD [address] [facility], [address] [place] [address] PCP - General 08/15/15 Fernando De La Rosa MD [address] [facility] [place] [address] Consulting Physician Gynecologic Oncology 11/21/22 Credit Product Analyst Relationship Specialty Start Date End Date Marlen Preciado MD [address], [address] [place] [address] PCP - General 08/15/15 Fernando De La Rosa MD [address] [facility], [address] [place] [address] Consulting Physician Gynecologic Oncology 11/21/22 Credit Product Analyst Relationship Specialty Start Date End Date Marlen Preciado MD [address], [address] [place] [address] PCP - General 08/15/15 Fernando De La Rosa MD [address] [facility], [address] [place] [address] Consulting Physician Gynecologic Oncology 11/21/22 Credit Product Analyst Relationship Specialty Start Date End Date Marlen Preciado MD [address], [address] [place] [address] PCP - General 08/15/15 Fernando De La Rosa MD [address] [facility], [address] [place] [address] Consulting Physician Gynecologic Oncology 11/21/22 Shala Xiong, MASS SPECTROSCOPIST - INTERVENTIONAL TECHNOLOGIST [address] [facility] [place] [address] Nurse Practitioner Nurse Practitioner 12/23/22 Credit Product Analyst Relationship Specialty Start Date End Date Marlen Preciado MD [address], [address] [place] [address] PCP - General 08/15/15 Fernando De La Rosa MD [address] [facility] [address] [place] [address] Consulting Physician Gynecologic Oncology 11/21/22 Shala Xiong, MASS SPECTROSCOPIST - INTERVENTIONAL TECHNOLOGIST [address] [facility] [address] [place] [address] Nurse Practitioner Nurse Practitioner 12/23/22 Credit Product Analyst Relationship Specialty Start Date End Date Marlen Preciado MD [address] [facility], [address] [place] [address] PCP - General 08/15/15 Fernando De La Rosa MD [address] [facility], [address] [place] [address] Consulting Physician Gynecologic Oncology 11/21/22 Shala Xiong, MASS SPECTROSCOPIST - INTERVENTIONAL TECHNOLOGIST [address] [facility] [address] [place] [address] Nurse Practitioner Nurse Practitioner 12/23/22 Credit Product Analyst Relationship Specialty Start Date End Date Marlen Preciado MD [address] [facility], [address] [place] [address] PCP - General 08/15/15 Fernando De La Rosa MD [address] [facility], [address] [place] [address] Consulting Physician Gynecologic Oncology 11/21/22 Shala Xiong, MASS SPECTROSCOPIST - INTERVENTIONAL TECHNOLOGIST [address] [facility] [address] [place] [address] Nurse Practitioner Nurse Practitioner 12/23/22 Credit Product Analyst Relationship Specialty Start Date End Date Marlen Preciado MD [address], [address] [place] [address] PCP - General 08/15/15 Fernando De La Rosa MD [address] [facility], [address] [place] [address] Consulting Physician Gynecologic Oncology 11/21/22 Shala Xiong APRN - INTERVENTIONAL TECHNOLOGIST [address] [facility] [place] [address] Nurse Practitioner Nurse Practitioner 12/23/22 Credit Product Analyst Relationship Specialty Start Date End Date Marlen Preciado MD [address] [facility], [address] [place] [address] PCP - General 08/15/15 Fernando De La Rosa MD [address] [facility], [address] [place] [address] Consulting Physician Gynecologic Oncology 11/21/22 Shala Xiong MASS SPECTROSCOPIST - INTERVENTIONAL TECHNOLOGIST [address] [facility] [place] [address] Nurse Practitioner Nurse Practitioner 12/23/22 Jayy Ocampo MD [address] [place] [address] Radiation Oncologist Radiation Oncology 01/01/23 Credit Product Analyst Relationship Specialty Start Date End Date Marlen Preciado MD [address] [facility], [address] [place] [address] PCP - General 08/15/15 Fernando De La Rosa MD [address] [facility], [address] [place] [address] Consulting Physician Gynecologic Oncology 11/21/22 Shala Xiong MASS SPECTROSCOPIST - INTERVENTIONAL TECHNOLOGIST [address] [facility] [place] [address] Nurse Practitioner Nurse Practitioner 12/23/22 Jayy Ocampo MD [address] [place] [address] Radiation Oncologist Radiation Oncology 01/01/23 Credit Product Analyst Relationship Specialty Start Date End Date Marlen Preciado MD [address], [address] [place] [address] PCP - General 08/15/15 Fernando De La Rosa MD [address] [facility], [address] [place] [address] Consulting Physician Gynecologic Oncology 11/21/22 Shala Xiong, MASS SPECTROSCOPIST - INTERVENTIONAL TECHNOLOGIST [address] [facility] [place] [address] Nurse Practitioner Nurse Practitioner 12/23/22 Jayy Ocampo MD [address] [place] [address] Radiation Oncologist Radiation Oncology 01/01/23 Credit Product Analyst Relationship Specialty Start Date End Date Marlen Preciado MD [address] [facility], [address] [place] [address] PCP - General 08/15/15 Fernando De La Rosa MD [address] [facility], [address] [place] [address] Consulting Physician Gynecologic Oncology 11/21/22 Shala Xiong, MASS SPECTROSCOPIST - INTERVENTIONAL TECHNOLOGIST [address] [facility] [place] [address] Nurse Practitioner Nurse Practitioner 12/23/22 Jayy Ocampo MD [address] [place] [address] Radiation Oncologist Radiation Oncology 01/01/23 Credit Product Analyst Relationship Specialty Start Date End Date Marlen Preciado MD [address], [address] [place] [address] PCP - General 08/15/15 Fernando De La Rosa MD [address] [facility] [place] [address] Consulting Physician Gynecologic Oncology 11/21/22 Shala Xiong APRN - INTERVENTIONAL TECHNOLOGIST [address] [facility] [place] [address] Nurse Practitioner Nurse Practitioner 12/23/22 Jayy Ocampo MD [address] [place] [address] Radiation Oncologist Radiation Oncology 01/01/23 Corey Pierson, RN Nurse Navigator Gynecologic Oncology 01/07/23 Credit Product Analyst Relationship Specialty Start Date End Date Marlen Preciado MD [address] [facility], [address] [place] [address] PCP - General 08/15/15 Fernando De La Rosa MD [address] [facility] [address] [place] [address] Consulting Physician Gynecologic Oncology 11/21/22 Shala Xiong APRN - INTERVENTIONAL TECHNOLOGIST [address] [facility] [address] [place] [address] Nurse Practitioner Nurse Practitioner 12/23/22 Jayy Ocampo MD [address] [place] [address] Radiation Oncologist Radiation Oncology 01/01/23 Corey Pierson, RN Nurse Navigator Gynecologic Oncology 01/07/23 Credit Product Analyst Relationship Specialty Start Date End Date Marlen Preciado MD [address] [facility], [address] [place] [address] PCP - General 08/15/15 Fernando De La Rosa MD [address] [facility] [place] [address] Consulting Physician Gynecologic Oncology 11/21/22 Shala Xiong APRN - INTERVENTIONAL TECHNOLOGIST [address] [facility] [place] [address] Nurse Practitioner Nurse Practitioner 12/23/22 Jayy Ocampo MD [address] [place], [place] [address] Radiation Oncologist Radiation Oncology 01/01/23 Corey Pierson, RN Nurse Navigator Gynecologic Oncology 01/07/23 Goals (unrecognized section and content) Goals may be documented in a n alternate section Reason for Visit (unrecogniz ed section and content) Reason Onset Date Comments Med Refill 02/03/2023 Reason Comments OP Infusion Specialty Diagnoses / Procedures Referred By Contac t Referred To Contact Diagnoses Stage I adenocarcinoma of cervix (CMS/HCC) ([facility]) Fernando De La Rosa MD [address] [facility] [place] [address] [facility] [address] [place] [address] Referral ID Status Reason Start Date Expiration Date V isits Requested Visits Authorized [id number] Pending Review 01/01/2023 06/30/2023 1 1 Reason Onset Date Comments low potassium 02/11/2023 Reason Onset Date Comments Difficulty Urinating 02/17/2023 Reason Onset Date Comments Nutrition Counseling 02/18/2023 Reason Onset Date Comments Med Refill 02/19/2023 For UTI Specialty Diagnoses / Procedures Referred By Contac t Referred To Contact Cardiology Diagnoses Stage I adenocarcinoma of cervix (CMS/HCC) ([facility]) Procedures Vascular US upper extremity venous duplex left Shala Xiong APRN - INTERVENTIONAL TECHNOLOGIST [address] [facility] [place] [address] Referral ID Status Reason Start Date Expiration Date Visits Requested Visits Authorized [id number] Pending Review Perform Procedure 02/18/2023 08/17/2023 1 1 Specialty Diagnoses / Procedures Referred By Contac t Referred To Contact Cardiology Diagnoses Thrombophlebitis Procedures Vascular US upper extremity venous duplex left Shala Xiong MASS SPECTROSCOPIST - INTERVENTIONAL TECHNOLOGIST [address] [facility] [place] [address] Referral ID Status Reason Start Date Expiration Date V isits Requested Visits Authorized [id number] Closed Perform Procedure 02/19/2023 08/18/2023 1 1 Reason Onset Date Comments Page doctor 02/24/[address] De La Rosa Reason Onset Date Comments OTHER 03/13/2023 Specialty Diagnoses / Procedures Referred By Contac t Referred To Contact Radiology Diagnoses Stage I adenocarcinoma of cervix (CMS/HCC) (HCC) Malignant neoplasm of endocervix (HCC) Procedures PET/CT skull base to mid thigh Fernando De La Rosa MD [address] [facility], [address] [place] [address] Referral ID Status Reason Start Date Expiration Date Visits Re quested Visits Authorized [id number] Closed 03/13/2023 09/09/2023 1 1 Reason Comments Follow-up Reason Comments Cervical Cancer Reason Comments Abdominal Pain Specialty Diagnoses / Procedures Referred By Contac t Referred To Contact [facility] DEPARTMENT Diagnoses problem with ovaries - patient has hx of uterine & cervical cancer - had radical hysterectomy, did chemo and radiation - needs seen in [facility] Procedures FOLLOW-UP/REASSESSMENT problem with ovaries - patient has hx of uterine & cervical cancer - had radical hysterectomy, did chemo and radiation - needs seen in [facility] Fernando De La Rosa MD [address] [facility] [address] [place] [address] [facility] [place] [address] Referral ID Status Reason Start Date Expiration Date Visits Requested Visits Authorized [id number] Authorized Patient Cleared - Qualified HCAP/501/FA 3 01/25/2024 99 99 Specialty Diagnoses / Procedures Referred By Contac t Referred To Contact CT IMAGING Diagnoses Encounter for follow-up surveillance of cervical cancer Procedures CT CHEST W IVCON DIAGNOSTIC COMPUTED TOMOGRAPHY THORAX W/CONTRAST Chang Thorpe MD [address] [place] [address] Ct Imaging [id number] Referral ID Status Reason Start Date Expiration Date V isits Requested Visits Authorized [id number] Closed Auto-Generate d Referral 12/01/2023 12/30/2024 [address] Specialty Diagnoses / Procedures Referred By Contac t Referred To Contact Diagnoses na Procedures na Self [facility] [address] Referral ID Status Reason Start Date Expiration Date Visits Requested Visits Authorized [id number] Authorized Patient Cleared - Qualified 100% FAS 02/27/2024 05/27/2024 99 99 Reason Comments Appointment Reason Comments Follow Up Specialty Diagnoses / Procedures Referred By Contac t Referred To Contact Diagnoses na Procedures na Self [facility] [address] Reason Comments Patient Update Referral ID Status Reason Start Date Expiration Date Visits Requested Visits Authorized [id number] Authorized Patient Cleared - Qualified 100% FAS 02/27/2024 07/01/2024 99 99 Reason Comments Cervical Cancer Reason Onset Date Comments surgery scheduling 11/25/2022 Scheduled at [facility] Specialty Diagnoses / Procedures Referred By Ajayac t Referred To Contact Diagnoses Malignant neoplasm of endocervix (HCC) Procedures CHG PET IMAGING CT ATTENUATION SKULL BASE MID-THIGH [facility] [address] [place] [address] Referral ID Status Reason Start Date Expiration Date Visits Re quested Visits Authorized [id number] 1 1 Reason Onset Date Comments OTHER 12/24/2022 Reason Comments Follow-up ER follow up for RLQ pain, imaging was preformed and in pacs Reason Onset Date Comments medication refill 12/26/2022 Patient needin g refill on medication Reason Comments Post-op Visit Reason Onset Date Comments Med Refill 01/02/2023 Reason Comments Consult Specialty Diagnoses / Procedures Referred By Contac t Referred To Contact Radiation Oncology Diagnoses Stage I adenocarcinoma of cervix (CMS/HCC) (HCC) Procedures CO OFFICE/OUTPATIENT [facility] 60-74 MINUTES Fernando De La Rosa MD [address] [facility] [address] [place] [address] [facility]c [address] [place] [address] Referral ID Status Reason Start Date Expiration Date Visits Requested Visits Authorized [id number] Pending Review Specialty Services Required 01/01/2023 01/01/2024 1 1 Reason Onset Date Comments Nutrition Counseling 01/03/2023 Specialty Diagnoses / Procedures Referred By Contac t Referred To Contact Radiology Diagnoses Malignant neoplasm of endocervix (HCC) Procedures CT Sim WO Jayy Ocampo MD [address] [place] [address] Referral ID Status Reason Start Date Expiration Date V isits Requested Visits Authorized [id number] Pending Review 01/16/2023 07/15/2023 1 1 Source Comments (unrecognize d section and content) In the event this informatio n is protected by the Federal Confidentiality of Alcohol and Drug Abuse Patient Records regulations: The Federal rules restrict any use of the information to criminally investigate or prosecute any alcohol or drug abuse patient.[facility] the event this information is protected by the Federal Confidentiality of Alcohol and Drug Abuse Patient Records regulations: The Federal rules restrict any use of the information to criminally investigate or prosecute any alcohol or drug abuse patient.[facility] the event this information is protected by the Federal Confidentiality of Alcohol and Drug Abuse Patient Records regulations: The Federal rules restrict any use of the information to criminally investigate or prosecute any alcohol or drug abuse patient.[facility] the event this information is protected by the Federal Confidentiality of Alcohol and Drug Abuse Patient Records regulations: The Federal rules restrict any use of the information to criminally investigate or prosecute any alcohol or drug abuse patient.[facility] the event this information is protected by the Federal Confidentiality of Alcohol and Drug Abuse Patient Records regulations: The Federal rules restrict any use of the information to criminally investigate or prosecute any alcohol or drug abuse patient.[facility] the event this information is protected by the Federal Confidentiality of Alcohol and Drug Abuse Patient Records regulations: The Federal rules restrict any use of the information to criminally investigate or prosecute any alcohol or drug abuse patient.[facility] the event this information is protected by the Federal Confidentiality of Alcohol and Drug Abuse Patient Records regulations: The Federal rules restrict any use of the information to criminally investigate or prosecute any alcohol or drug abuse patient.[facility] the event this information is protected by the Federal Confidentiality of Alcohol and Drug Abuse Patient Records regulations: The Federal rules restrict any use of the information to criminally investigate or prosecute any alcohol or drug abuse patient.[facility] the event this information is protected by the Federal Confidentiality of Alcohol and Drug Abuse Patient Records regulations: The Federal rules restrict any use of the information to criminally investigate or prosecute any alcohol or drug abuse patient.[facility] the event this information is protected by the Federal Confidentiality of Alcohol and Drug Abuse Patient Records regulations: The Federal rules restrict any use of the information to criminally investigate or prosecute any alcohol or drug abuse patient.[facility] the event this information is protected by the Federal Confidentiality of Alcohol and Drug Abuse Patient Records regulations: The Federal rules restrict any use of the information to criminally investigate or prosecute any alcohol or drug abuse patient.[facility] the event this information is protected by the Federal Confidentiality of Alcohol and Drug Abuse Patient Records regulations: The Federal rules restrict any use of the information to criminally investigate or prosecute any alcohol or drug abuse patient.[facility] the event this information is protected by the Federal Confidentiality of Alcohol and Drug Abuse Patient Records regulations: The Federal rules restrict any use of the information to criminally investigate or prosecute any alcohol or drug abuse patient.[facility] FOR RECORDS PERTAINING TO PATIENTS WHO ARE OR HAVE BEEN ENROLLED IN A CHEMICAL DEPENDENCY/SUBSTANCEABUSE PROGRAM, SOME INFORMATION MAY BE OMITTED. This clinical summary was aggregated from multiple sources. Caution should be exercised in using it in the provision of clinical care. This summary normalizes information from multiple sources, and as a consequence, information in this document may materially change the coding, format and clinical context of patient data. In addition, data may be omitted in some cases. CLINICAL DECISIONS SHOULD BE BASED ON THE PRIMARY CLINICAL RECORDS. [facility] [employer] [facility]. provides no warranty or guarantee of the accuracy or completeness of information in this document.
[2025-04-19] MEDS: Cephalexin 250 MG Capsule 500 MG PO (01:11)
[2025-04-19 01:18] VITALS: BP 101/54; PULSE 68; O2SAT 96
[2025-04-19 02:07] VITALS: BP 102/58; PULSE 73; RESP 16; TEMP 36.7; O2SAT 99
== END 2025-04-19 02:08 | disposition home or self-care (01) ==
PROVIDERS: Emergency Provider Emergency Medicine; Visit Provider Emergency Medicine
DX: N39.0 Urinary tract infection, site not specified (principal); B96.20 Unspecified Escherichia coli [E. coli] as the cause of diseases classified elsewhere; Z16.12 Extended spectrum beta lactamase (ESBL) resistance; F17.210 Nicotine dependence, cigarettes, uncomplicated; Z90.710 Acquired absence of both cervix and uterus; Z85.41 Personal history of malignant neoplasm of cervix uteri
CPT/HCPCS: 81001; 81025; 87077; 87086; 87088; 87186; 93005; 99283; A4216

== ENCOUNTER 2025-05-09 18:30 | Emergency (ER) | payer SELFPAY ==
[2025-05-09 18:31] VITALS: BP 101/70; PULSE 61; RESP 16; TEMP 36.6; O2SAT 99; BMI 25.4
[2025-05-09 19:10] LABS: Mucous, Urine 0 SEEN /hpf (<or=2+)
[2025-05-09 19:20] LABS: Internal QC Validated? YES +Cl - CLEAR BKGD; Pregnancy, Urine Negative Negative; Record Kit Lot#,Urine Preg 947241
[2025-05-09 19:33] LABS: Color, Urine Yellow (Yellow); Glucose, Dipstick Normal (Normal); Ketone-Dipstick Negative (Negative); Leukocyte Esterase-Dipstick 500 /ul (Negative); Nitrite-Dipstick Negative (Negative); Occult Blood-Urine 150 /ul (Negative); Protein-Dipstick 30 mg/dl (Negative); Urine Bilirubin Dipstick Negative (Negative); Urine Clarity Cloudy (Clear); Urine Urobilinogen Normal (Normal)
[2025-05-09 19:54] LABS: Red Blood Cells-Urine 10-25 SEEN /hpf (0-5)
[2025-05-09 19:55] LABS: Squamous Epithelial Cells - UA 0-5 SEEN /hpf (5-10); White Blood Cells >100 SEEN /hpf (0-5)
[2025-05-09 19:56] LABS: Amorphous Sediment 3+; Bacteria 2+ /hpf (None Seen)
--- NOTE | 2025-05-09 21:25 | ED.RN ---
PT. INFORMED THIS NURSE I THINK I AM GOING TO TRY URGENT CARE OR COME BACK TOMORROW. REGISTRATION NOTIFIED, PT. LEFT WITHOUT BEING SEEN
== END 2025-05-09 21:25 | disposition left against medical advice (07) ==
LOC: ED 21:37
DX: Z00.00 Encounter for general adult medical examination without abnormal findings (principal)
CPT/HCPCS: 81001; 81025; 99281

== ENCOUNTER 2025-05-11 12:12 | Emergency (ER) | payer SELFPAY ==
[2025-05-11 12:12] VITALS: BP 122/82; PULSE 67; RESP 14; TEMP 37.2; O2SAT 99; BMI 25.6
--- NOTE | 2025-05-11 13:31 | CT_ITS ---
PROCEDURE: ABDOMEN/PELVIS W IV CONT ONLY 05/11/2025 REASON FOR EXAM: PELVIC PAIN TECHNIQUE: ABDOMEN/PELVIS W IV CONT ONLY Coronal and Sagittal reconstruction series were provided. CONTRAST: Isovue 370 VOLUME: 100 mL One or more dose reduction techniques were used (e.g., Automated exposure control, adjustment of the mA and/or kV according to patient size, use of iterative reconstruction technique. RADIATION DOSE SUMMARY: CTDlvol: 44.28 mGy DLP: 1249.33 mGycm COMPARISON: 12/04/2024 FINDINGS: Lung bases: Mild dependent atelectasis Liver: No suspicious lesion identified within the liver, there is subtle intrahepatic biliary dilatation which is unexpected in a patient of this age who still has her gallbladder. There is no biliary dilatation and no obstructing stone noted within the extrahepatic common bile duct. Gallbladder: Unremarkable Spleen: Normal size. Pancreas: Normal size without evidence of mass surrounding inflammation or ductal dilation. Adrenals: Unremarkable Kidneys: No obstructive uropathy or suspicious solid renal lesion. Stable punctate nonobstructing renal stones. Bladder: Nonspecific circumferential bladder wall thickening can be seen with cystitis. Reproductive Organs: Not present, likely surgically absent Bowel: Nondistended fluid-filled small bowel loops suggest ileus. Retained stool noted in the colon Appendix: Normal appendix seen on coronal recon images 45 through 57 No free intraperitoneal fluid, air, or suspicious adenopathy Bones: Unremarkable CT/Abdomen/Pelvis W IV Cont ONLY IMPRESSION: Bladder distends normally with subtle circumferential bladder wall thickening w hich can be seen with cystitis. Please correlate with urinalysis There is subtle intrahepatic biliary dilatation which is unusual in a patient o f this age who still has a gallbladder. There is no CT evidence of cholecystitis or extrahepatic biliary dilatation. No evidenc e of a stone within the extrahepatic common bile duct. This biliary dilatation is new since the previous study No free intraperitoneal fluid, air, or suspicious adenopathy, normal appendix v isualized Reading Location: [id number]
--- NOTE | 2025-05-11 13:35 | EDS_ITS ---
HPI History of Present Illness Chief Complaint: Complaint Informant: patient Onset/Context/Timing Onset: Weeks (2) Context: Gradual Onset Timing: Continuous Quality: Burning Location: Lower abdomen Worsened by: Nothing Relieved by: Nothing Narrative Narrative: Patient presents with pelvic pain and dysuria that has been getting worse over the past 2 weeks. Patient states it is gradually getting worse. Patient describes her pain as a burning sensation. Patient states it is over the lower abdomen. Patient states nothing makes it better nothing makes it worse. Patient denies any fevers or chills. Patient denies any nausea or vomiting. Patient denies any neck or back pain. [facility] Medical History ESBL (extended spectrum beta-lactamase) producing bacteria infection Former smoker Cervical cancer Home Medications ?Medication ?Instructions ?Recorded ?Last Taken ?Type hydrocodone-acetaminophen 5-325mg 1 tab PO Q6H PRN PRN Pain 3 days 05/11/25 Unknown Rx 5mg-325mg #10 TABLETS phenazopyridine 95 mg tablet (Azo 95 mg PO TID PRN ruben n 05/11/25 05/11/25 Histo ry Urinary Pain Relief) sulfamethoxazole 800 1 tab PO BID #14 TABLETS 01/04 Unknown Rx mg-trimethoprim 160 mg tablet Allergy/AdvReac Type Severity Reaction Status Date / Time No Known Allergies Allergy Verified 05/11/25 12:12 Family History no significant family his Surgical History S/P hysterectomy Social History household members: significant other and children Smoking Status: Current every day smoker tobacco type: cigarettes ROS ROS ED Constitutional Constitutional ED: Denies chills or fever(s) Eyes Eyes: Denies blurry vision or change in vision ENT ENT ED: Denies rhinorrhea or sore throat Cardiovascular Cardiovascular: Denies chest pain or palpitations Respiratory/Chest Respiratory/Chest: Denies cough or dyspnea Gastrointestinal Gastrointestinal: Reports abdominal pain; Denies nausea or vomiting Genitourinary Genitourinary ED: Reports dysuria; Denies hematuria Musculoskeletal Musculoskeletal: Denies back pain or neck pain Integumentary Denies abscess or rash Neurologic Neurologic: Denies headache(s) or weakness Allergic/Immunologic Allergic/Immunologic ED: Denies mouth swelling or urticaria EXAM Physical Exam Const Vital Signs: 05/11/25 12:12 05/11/25 14:33 Temperature 99 F Temperature Source Temporal Pulse Rate 67 65 Respiratory Rate 14 15 Blood Pressure 122/82 H 121/71 H Blood Pressure Mean 95 87 Pulse Ox 99 98 Oxygen Delivery Method Room Air Positive well nourished and well developed General Appearance ED: well developed and NAD HEENT Reports moist mucous membranes Neck supple and no JVD Resp normal respiratory effort and clear to auscultation bilaterally Cardio regular rate and regular rhythm GI non-distended Palpation: soft and tender LLQ, RLQ and suprapubic Extremity normal to inspection Neuro oriented x3, CN's II-XII intact bilaterally and no sensory deficits noted Sensorium / Orientation: alert Motor Exam: strength 5/5 throughout Psych mental status grossly normal MDM MDM MDM Narrative Medical decision making narrative: Differential diagnosis includes urinary tract infection, pyelonephritis, dehydration, ureteral calculus, and electrolyte abnormality. CBC will be obtained to assess for leukocytosis and anemia. Basic metabolic profile will be obtained to assess for electrolyte abnormality and renal function. Serum hCG will be obtained to assess for . Urinalysis will be obtained to assess for urinary tract infection. CT scan of the abdomen and pelvis will be obtained to assess for pyelonephritis and ureteral calculus. History & Record Review Additional record(s) reviewed:: Prior ED visit and Prior labs Lab Data Attestation: I reviewed the patient's lab results. Lab results narrative: CBC was reviewed and was within normal limits. Basic metabolic profile was reviewed and was essentially within normal limits. Serum hCG was reviewed and was negative. Urinalysis was reviewed. Leukocyte esterase was 500. There are 50-100 white blood cells. There are no bacteria noted. Labs: Laboratory Results - last 24 hr 05/11/25 05/11/25 12:18 13:59 WBC 11.0 RBC 4.23 Hgb 13.3 Hct 39.6 MCV 93.6 MCH 31.4 MCHC 33.6 RDW Std Deviation 43.8 RDW Coeff of [place] 12.8 Plt Count 299 MPV 8.9 Immature Gran % (Auto) 0.200 Neut % (Auto) 62.6 Lymph % (Auto) 26.0 [place] % (Auto) 6.9 Eos % (Auto) 3.7 Baso % (Auto) 0.6 Absolute Neuts (auto) 6.9 Absolute Lymphs (auto) 2.85 Nucleated RBC % 0 Sodium 139 Potassium 3.8 Chloride 105 Carbon Dioxide 24.2 Anion Gap 10 BUN 14 Creatinine 0.66 L Estim Creat Clear Calc 114.72 Est GFR (MDRD) Non-Af 119 BUN/Creatinine Ratio 20.7 H Glucose 86 Calcium 9.3 Serum , Qual NEGATIVE Urine Color Yellow Urine Clarity Sl. Cloudy Urine pH 6.0 Ur Specific [place] 1.020 Urine Protein 100 H Urine Glucose (UA) Normal Urine Ketones Negative Urine Occult Blood 50 H Urine Nitrite Positive H Urine Bilirubin 3 H Urine Urobilinogen 4 H Ur Leukocyte Esterase 500 H Urine RBC 0 SEEN Urine WBC 50-100 SEEN Ur Squamous Epith Cells 0-5 SEEN Urine Bacteria 0 SEEN Urine Mucus 0 SEEN Radiography Diagnostic Testing: Clinical Impression(s) from Imaging Studies Abdomen/Pelvis CT 05/11/25 13:31 IMPRESSION: Bladder distends normally with subtle circumferential bladder wall thickening which can be seen with cystitis. Please correlate with urinalysis There is subtle intrahepatic biliary dilatation which is unusual in a patient of this age who still has a gallbladder. There is no CT evidence of cholecystitis or extrahepatic biliary dilatation. No evidence of a stone within the extrahepatic common bile duct. This biliary dilatation is new since the previous study No free intraperitoneal fluid, air, or suspicious adenopathy, normal appendix visualized Reading Location: [facility] CT scan of the abdomen pelvis was obtained. There is circumferential bladder wall thickening which can be seen with cystitis. There is no free air or free fluid. There is subtle intrahepatic biliary dilatation. There is no evidence of cholecystitis or choledocholithiasis. This was interpreted by the radiologist and was also independently reviewed by myself. Additional Tests and Interventions Additional Tests or Interventions: Urine culture was agreement. Treatment and Re-Evaluation :: Patient was given a dose of Zosyn. And morphine. Patient was given IV fluids. Prior urine culture from 04/19/2025 was reviewed which showed ESBL E. coli. This was sensitive to Zosyn, Macrobid, and Bactrim. Patient was advised of her findings. Patient was given a prescription for Bactrim. Patient was instructed to follow-up with her primary care physician in 5 to 7 days. Patient was instructed to return if worse in any way. Patient understood and was agreeable with plan. All questions were answered. Discharge Plan Triage Chief Complaint: Complaint Other Complaint: Abd Pain ED Provider: Ian Yepez Dx/Rx/DC Orders Clinical Impression: Acute cystitis, Pelvic pain, Tobacco use Instructions: ED Cystitis Female Adult Prescriptions: New sulfamethoxazole-trimethoprim 800-160 mg tablet 1 tab PO BID Qty: 14 0RF hydrocodone-acetaminophen 5-325 mg tablet 1 tab PO Q6H PRN PRN (Reason: Pain) 3 Days Qty: 10 0RF No Action phenazopyridine [Azo Urinary Pain Relief] 95 mg tablet 95 mg PO TID PRN (Reason: pain) Primary Care Provider: Care Physician,No Primary Referrals: Care Physician,No Primary [Primary Care Provider] - Zoie Chung, COMMUNITY RELATIONS ASSISTANT-C [[facility]] - 3-5 Days Print Language: Austrian Disposition Disposition: Home, Self Care
[2025-05-11 13:43] LABS: Mucous, Urine 0 SEEN /hpf (<or=2+); Red Blood Cells-Urine 0 SEEN /hpf (0-5)
[2025-05-11 13:45] LABS: Color, Urine Yellow (Yellow); Glucose, Dipstick Normal (Normal); Ketone-Dipstick Negative (Negative); Leukocyte Esterase-Dipstick 500 /ul (Negative); Nitrite-Dipstick Positive (Negative); Occult Blood-Urine 50 /ul (Negative); Protein-Dipstick 100 mg/dl (Negative); Specific Gravity, Urine 1.020 (1.002-1.030)
[2025-05-11 13:46] LABS: Urine Bilirubin Dipstick 3 mg/dL (Negative)
[2025-05-11] MEDS: 0.9% Normal Saline (1000mL) 1,000 ML 1000 ML IV (13:55)
[2025-05-11] MEDS: Piperacil/Tazobactam 4.5 GM in 0.9% Normal Saline (100mL MB+) 100 ML IV (13:56)
[2025-05-11 14:03] LABS: Squamous Epithelial Cells - UA 0-5 SEEN /hpf (5-10)
[2025-05-11 14:08] LABS: Hematocrit 39.6 % (37-47); Hemoglobin 13.3 g/dL (12.0-15.0); Immature Granulocytes Count 0.020 X10^3/uL (0.0-0.0); Mean Corp Hgb Conc 33.6 g/dL (32-36); Mean Corpuscular Volume 93.6 fL (81-99); Mean Platelet Vol. 8.9 fl (6.2-12.0); NRBC Flagged by Analyzer 0 % (0-5); Platelet Count 299 K/mm3 (150-450); RBC Distribution Width CV 12.8 % (11.6-14.6); RBC Distribution Width SD 43.8 fl (35.1-43.9); Red Blood Count 4.23 M/mm3 (4.2-5.4); White Blood Count 11.0 K/mm3 (4.4-11.0)
[2025-05-11 14:33] VITALS: BP 121/71; PULSE 65; RESP 15; O2SAT 98
[2025-05-11 14:33] LABS: Internal QC Validated? YES +Cl - CLEAR BKGD; Pregnancy, Serum, hCG Quali. NEGATIVE Negative; Record Kit Lot#, Serum Preg. 947241
[2025-05-11 14:50] LABS: Anion Gap 10 (5-15); BUN 14 mg/dL (4-19); BUN/Creat Ratio 20.7 RATIO (10-20); Calcium,Total 9.3 mg/dL (7.6-11.0); Carbon Dioxide 24.2 mmol/L (21.0-32.0); Chloride 105 mmol/L (98-108); Estimated Creatinine Clearance 114.72 ml/min (50-250); Glucose 86 mg/dL (70-99); Potassium 3.8 mmol/L (3.3-5.1)
[2025-05-11 16:00] VITALS: BP 123/110; PULSE 60; RESP 14; TEMP 36.9; O2SAT 98
== END 2025-05-11 16:11 | disposition home or self-care (01) ==
PROVIDERS: Emergency Provider Emergency Medicine; Visit Provider Emergency Medicine
DX: R10.2 Pelvic and perineal pain (principal); N30.00 Acute cystitis without hematuria; Z90.710 Acquired absence of both cervix and uterus; F17.210 Nicotine dependence, cigarettes, uncomplicated; Z85.41 Personal history of malignant neoplasm of cervix uteri; Z87.891 Personal history of nicotine dependence
CPT/HCPCS: 74177; 80048; 81001; 84703; 85025; 96365; 96375; 99284; Q9967; A4216

== ENCOUNTER 2025-07-05 19:54 | Emergency (ER) | payer SELFPAY ==
[2025-07-05 19:55] VITALS: BP 138/64; PULSE 75; RESP 15; TEMP 36.8; O2SAT 98; BMI 25.9
[2025-07-05 20:03] VITALS: BP 138/64; PULSE 75; RESP 15; TEMP 36.8; O2SAT 98
[2025-07-05 20:30] LABS: Mucous, Urine 0 SEEN /hpf (<or=2+)
[2025-07-05 20:31] LABS: Color, Urine Yellow (Yellow); Glucose, Dipstick Normal (Normal); Ketone-Dipstick Negative (Negative); Leukocyte Esterase-Dipstick 100 /ul (Negative); Nitrite-Dipstick Negative (Negative); Occult Blood-Urine 10 /ul (Negative); Protein-Dipstick 30 mg/dl (Negative); Specific Gravity, Urine 1.025 (1.002-1.030); Urine Bilirubin Dipstick Negative (Negative)
[2025-07-05 20:42] LABS: Red Blood Cells-Urine 0-5 SEEN /hpf (0-5); Squamous Epithelial Cells - UA 0-5 SEEN /hpf (5-10)
[2025-07-05 21:17] VITALS: BP 107/58; PULSE 73; RESP 16; TEMP 36.8; O2SAT 98
[2025-07-05] MEDS: Smz/Tmp Ds Tablet 1 TABLET PO (21:21)
--- NOTE | 2025-07-06 21:00 | ED.VIS.FEGU ---
HPI HPI - Female History of Present Illness Chief Complaint: Complaint Informant: patient and spouse/S.O. Narrative Narrative: Increasing suprapubic pressure dysuria over the last couple days. History of UTIs. No fevers. No vomiting. No vaginal bleeding or abnormal discharge. Prior similar symptoms: Yes PFSH PFSH Medical History ESBL (extended spectrum beta-lactamase) producing bacteria infection Former smoker Cervical cancer Home Medications ?Medication ?Instructions ?Recorded ?Last Taken ?Type hydrocodone-acetaminophen 5-325mg 1 tab PO Q6H PRN PRN Pain 3 days 05/11/25 Unknown Rx 5mg-325mg #10 TABLETS phenazopyridine 95 mg tablet (Azo 95 mg PO TID PRN pain 05/11/25 05/11/25 History Urinary Pain Relief) sulfamethoxazole 800 1 tab PO BID #14 TABLETS 05/11/25 Unknown Rx mg-trimethoprim 160 mg tablet phenazopyridine 200 mg tablet 200 mg PO TID #20 tabs 07/05/25 Unknown Rx (Pyridium) sulfamethoxazole 800 1 tab PO BID #28 TABLETS 07/05/25 Unknown Rx mg-trimethoprim 160 mg tablet Allergy/AdvReac Type Severity Reaction Status Date / Time No Known Allergies Allergy Verified 07/05/25 19:57 Family History no significant family his Surgical History S/P hysterectomy Social History household members: significant other and children Smoking Status: Current every day smoker tobacco type: cigarettes ROS ROS ED Constitutional Constitutional ED: Denies chills or fever(s) Cardiovascular Cardiovascular: Denies chest pain Respiratory/Chest Respiratory/Chest: Denies cough Gastrointestinal Gastrointestinal: Reports abdominal pain; Denies diarrhea or vomiting Genitourinary Genitourinary ED: Reports dysuria Musculoskeletal Musculoskeletal: Denies none Integumentary Denies rash or wounds Neurologic Neurologic: Denies weakness EXAM Physical Exam Const Vital Signs: 07/05/25 21:17 Temperature 98.2 F Pulse Rate 73 Respiratory Rate 16 Blood Pressure 107/58 L Blood Pressure Mean 74 Pulse Ox 98 Positive well nourished and well developed General Appearance ED: well developed and NAD HEENT Reports moist mucous membranes normocephalic and atraumatic Eyes General Eye ED: Yes normal appearance of both eyes Neck full ROM Chest Wall Chest: Negative for tenderness Resp normal respiratory effort and normal air movement Effort and Inspection: symmetric chest movement; Negative for respiratory distress Cardio regular rate, regular rhythm and no murmurs Peripheral Pulses: pulses 2+ throughout GI normal to inspection, nondistended, normoactive bowel sounds GI Narrative: Mild tenderness suprapubic. Negative Salcedo's or McBurney's tenderness. Palpation: Negative for guarding or rebound tenderness present Back/Spine no CVA tenderness Extremity normal to inspection General Extremety ED: Negative for edema or tenderness General Extremity: Negative for edema Neuro oriented x3 and no sensory deficits noted Sensorium / Orientation: awake and alert Skin no rashes or lesions noted and no wounds MDM MDM MDM Narrative Medical decision making narrative: Interventions / MDM: Differential diagnosis: UTI, history of ESBL, dysuria Diagnosis considered but do not suspect: N/A My EKG interpretation: N/A Imaging independently reviewed and interpreted by myself: N/A External documents reviewed: History of ESBL sensitive to Macrobid Zosyn and Bactrim. Test considered but not ordered:N/A ED course: Nontoxic vital signs stable. Having dysuria or suprapubic tenderness. Urine was sent. She started on Pyridium. Urine with signs of infection culture sent. She is covered for Bactrim 14 days for recurrent UTIs. Outpatient follow-up given with urology. All questions were answered. Re-evaluation: stable Disposition discussed with patient/family/significant other: Patient Case discussed with consulting clinician: N/A This note was generated with [email or web address] dictation software. It may contain incorrect words, spelling, and punctuation that were not noted in checking the note before signing. Discharge Plan Triage Chief Complaint: Complaint ED Provider: Dane Oliveira Dx/Rx/DC Orders Clinical Impression: UTI (urinary tract infection), Dysuria, History of ESBL E. coli infection Instructions: Dysuria, ED UTIs Women Prescriptions: New phenazopyridine [Pyridium] 200 mg tablet 200 mg PO TID Qty: 20 0RF sulfamethoxazole-trimethoprim 800-160 mg tablet 1 tab PO BID Qty: 28 0RF No Action phenazopyridine [Azo Urinary Pain Relief] 95 mg tablet 95 mg PO TID PRN (Reason: pain) sulfamethoxazole-trimethoprim 800-160 mg tablet 1 tab PO BID Qty: 14 0RF hydrocodone-acetaminophen 5-325 mg tablet 1 tab PO Q6H PRN PRN (Reason: Pain) 3 Days Qty: 10 0RF Primary Care Provider: Care Physician,No Primary Referrals: [facility] Jonh[facility] Female Urology [Provider Group] - 1-2 Weeks Care Physician,No Primary [Primary Care Provider] - Sheba Paredes DO [[facility] [place]] - 1-2 Weeks Activity Restrictions/Additional Instructions: Urine with recurrent infection. History of ESBL sensitive to Bactrim. Taking finish antibiotic prescribed. Recurrent urine infections follow-up with urology. You need to get established with PCP. Follow-up with Dr. Paredes. Print Language: Wolof Disposition Disposition: Home, Self Care Discharge Date/Time: 07/05/25 21:22
== END 2025-07-05 21:22 | disposition home or self-care (01) ==
PROVIDERS: Emergency Provider Emergency Medicine; Visit Provider Emergency Medicine
DX: N39.0 Urinary tract infection, site not specified (principal); F17.210 Nicotine dependence, cigarettes, uncomplicated; Z90.710 Acquired absence of both cervix and uterus; R30.0 Dysuria; Z86.19 Personal history of other infectious and parasitic diseases; Z85.41 Personal history of malignant neoplasm of cervix uteri
CPT/HCPCS: 81001; 87077; 87086; 87088; 87186; 99283

== ENCOUNTER 2025-07-17 19:20 | Emergency (ER) | payer SELFPAY ==
[2025-07-17 19:21] VITALS: BP 140/77; PULSE 89; RESP 25; TEMP 36.6; O2SAT 100
--- NOTE | 2025-07-17 19:39 | RAD_ITS ---
PROCEDURE: ANKLE MIN 3 VIEWS; FOOT MIN 3 VIEWS; TIBIA FIBULA 2 VIEWS 07/17/2025 REASON FOR EXAM: PAIN TECHNIQUE: Procedure Code: RADANK; RADFO; RADTF Modality: DX Procedure: ANKLE MIN 3 VIEWS; FOOT MIN 3 VIEWS; TIBIA FIBULA 2 VIEWS Laterality: FINDINGS: No acute fracture or dislocation. The ankle mortise is grossly intact. No significant degenerative changes. No focal soft tissue swelling. RAD/Ankle min 3 Views IMPRESSION: As above. Reading Location: [id number]
--- NOTE | 2025-07-17 19:39 | RAD_ITS ---
PROCEDURE: ANKLE MIN 3 VIEWS; FOOT MIN 3 VIEWS; TIBIA FIBULA 2 VIEWS 07/17/2025 REASON FOR EXAM: PAIN TECHNIQUE: Procedure Code: RADANK; RADFO; RADTF Modality: DX Procedure: ANKLE MIN 3 VIEWS; FOOT MIN 3 VIEWS; TIBIA FIBULA 2 VIEWS Laterality: FINDINGS: No acute fracture or dislocation. The ankle mortise is grossly intact. No significant degenerative changes. No focal soft tissue swelling. RAD/Tibia & Fibula 2 Views IMPRESSION: As above. Reading Location: [id number]
--- NOTE | 2025-07-17 19:40 | EDS_ITS ---
HPI History of Present Illness Chief Complaint: Lower Extremity Injury Narrative Narrative: Patient is a 34-year-old female presenting to the emergency department for a right ankle injury. Patient states that she was moving a dresser and stepped on a brick causing her to roll her ankle. States this happened a few hours ago. She reports that she was initially able to walk on it but now is having significant pain in her ankle. She states that she did not take anything for pain prior to arrival. Denies any numbness or weakness in her leg. [facility] Medical History ESBL (extended spectrum beta-lactamase) producing bacteria infection Former smoker Cervical cancer Home Medications ?Medication ?Instructions ?Recorded ?Last Taken ?Type NK 07/17/25 Unknown History Allergy/AdvReac Type Severity Reaction Status Date / Time No Known Allergies Allergy Verified 07/17/25 19:21 Surgical History S/P hysterectomy Social History household members: significant other and children Smoking Status: Current every day smoker tobacco type: cigarettes ROS ROS ED ROS Narrative See HPI EXAM Physical Exam Narrative Exam Narrative: Vital signs: Reviewed General: Alert and oriented x 3. No acute distress HEENT: Head is normocephalic and atraumatic, sinuses nontender, pupils equal round and reactive. Nares are patent. Oropharynx and throat exams normal. Neck: Supple without lymphadenopathy nontender Cardiovascular: Regular rate and rhythm, no murmurs. No rubs or gallops. Normal S1 and S2 Respiratory: Clear to auscultation bilaterally. No wheezes, rales, rhonchi Abdominal: Soft and nontender. Normal bowel sounds. No guarding or rebound. Nonsurgical abdomen Extremities: There is point tenderness to palpation of the medial and lateral malleoli. No midfoot tenderness to palpation specifically over the 1st or 5th metatarsals. DP and PT pulses intact bilaterally. Patient able to plantar and dorsiflex without difficulty. Sensation is intact. No ecchymosis noted. No significant swelling noted. Mild tenderness to palpation of the entire tib fib with no obvious deformity. The rest of the physical exam is unremarkable Const Vital Signs: 07/17/25 19:21 07/17/25 20:34 Temperature 97.9 F 98 F Temperature Source Temporal Pulse Rate 89 74 Respiratory Rate 25 H 18 Blood Pressure 140/77 H 100/78 Blood Pressure Mean 98 85 Pulse Ox 100 100 Oxygen Delivery Method Room Air MDM MDM MDM Narrative Medical decision making narrative: Patient is a 34-year-old female presenting to emergency department for right ankle pain. Patient was seen and examined. Vitals are stable. Patient resting in bed comfortably no acute distress. X-rays of the right foot, ankle and tib-fib were obtained. Patient given motrin for symptomatic control. X-rays reviewed by myself and there is no evidence of a fracture or dislocation. Radiology read with no acute findings. Patient updated on the negative workup. Maco wrap applied for comfort. Ordered crutches to aid in ambulation. Instructed to follow-up with primary care doctor within a week if her symptoms do not improve. Recommended RICE therapy for home. Patient discharged from the Emergency Department. I do not feel that the patient's evaluation reveals any acute reason for admission at this time. I instructed them to either follow-up with their primary care physician or promptly return to the Emergency Department for reevaluation should symptoms worsen or new symptoms develop. I explained what symptoms would indicate the need to return to the emergency department. Shared decision making was used. The patient voiced understanding of the treatment plan and is agreeable with it. Clinical impression Right ankle sprain History & Record Review Discussion w/independent historian: Patient Radiography X-Ray: Read by ED Physician, Normal and No Fracture Diagnostic Testing: Clinical Impression(s) from Imaging Studies Ankle X-Ray 07/17/25 19:39 IMPRESSION: As above. Reading Location: [facility] Tibia/Fibula X-Ray 07/17/25 19:39 IMPRESSION: As above. Reading Location: [id number] Foot X-Ray 07/17/25 19:50 IMPRESSION: As above. Reading Location: [facility] Discharge Plan Triage Chief Complaint: Lower Extremity Injury ED Provider: Lucila Pete Dx/Rx/DC Orders Clinical Impression: Right ankle sprain Instructions: Treating Ankle Sprains Prescriptions: No Action NK Primary Care Provider: Care Physician,No Primary Referrals: Odessa Sanchez MD [Med Staff - [employer]] - 2 Days Care Physician,No Primary [Primary Care Provider] - Activity Restrictions/Additional Instructions: Take ibuprofen at home for pain control. Ice your ankle and elevate it to help with pain and swelling. Use the crutches as needed. Apply the compression dressing on your ankle as needed to help with pain and swelling. Follow-up with your primary care doctor if you do not have 1 I provided you 1 below to follow- up with. Your evaluation in the Emergency Department did not reveal any acute reason for admission. However, I want to emphasize that you may be early in the course of a disease process or illness even if it is not present. For this reason you should follow-up within 24 hours for reevaluation with either your primary care physician or if necessary back here in the Emergency Department. You should return to the Emergency Department immediately if your symptoms worsen or new symptoms develop. Print Language: Croatian Disposition Disposition: Home, Self Care Discharge Date/Time: 07/17/25 20:35
--- NOTE | 2025-07-17 19:50 | RAD_ITS ---
PROCEDURE: ANKLE MIN 3 VIEWS; FOOT MIN 3 VIEWS; TIBIA FIBULA 2 VIEWS 07/17/2025 REASON FOR EXAM: PAIN TECHNIQUE: Procedure Code: RADANK; RADFO; RADTF Modality: DX Procedure: ANKLE MIN 3 VIEWS; FOOT MIN 3 VIEWS; TIBIA FIBULA 2 VIEWS Laterality: FINDINGS: No acute fracture or dislocation. The ankle mortise is grossly intact. No significant degenerative changes. No focal soft tissue swelling. RAD/Foot min 3 Views IMPRESSION: As above. Reading Location: [id number]
--- OUTSIDE RECORDS SUMMARY | 2025-07-17 20:08 | XMS RPT_ITS | CCD ---
Author Organization [facility] Inform ion Partnership [facility] Care Team Providers Care Wire Brusher Name Role Phone KEVIN NUBIA Unavailable Unavailable NUBIA BROWN Unavailable Unavailable NO REFERRING DR Unavailable Unavailable Ozzy CHAMBERS, Marlen To Primary Care Provider Fernando De La Rosa MD Unavailable Inga Quintana CNP, Edwige Unavailable Damaris CHAMBERS, Aldo Unavailable Corey Pierson RN Unavailable Unavailable Brooklyn CHOE - DANN Abbi Unavailable [facility] Primary Care Provider Unav ailable Fernando De La Rosa MD Unavailable [phone] Ingajaz CHOE - SENIOR INSIGHT MANAGER INTERNATIONAL, Edwige Unavailable [phone] Damaris CHAMBERS, Aldo Unavailable [phone] Corey Pierson RN Unavailable Unavailable Brooklyn CHOE - SENIOR INSIGHT MANAGER INTERNATIONAL Abbi Unavailable [phone] [facility] Primary Care Provider Unav ailable JIMBO [...] Unavailable OZZY, MARLEN Primary Care Unavailable DAMARIS, ALDO Attending Unavailable OZZY, MARLEN Primary Care Unavailable OZZY, MARLEN Primary Care Unavailable OZZY, MARLEN Primary Care Unavailable OZZY, MARLEN Primary Care Unavailable OZZY, MARLEN Primary Care Unavailable OZZY, MARLEN Primary Care Unavailable DAMARIS, ALDO Attending Unavailable OZZY, MARLEN Primary Care Unavailable DAMARIS, ALDO Attending Unavailable OZZY, MARLEN Primary Care Unavailable DAMARIS, ALDO Attending Unavailable OZZY, MARLEN Primary Care Unavailable DAMARIS, ALDO Attending Unavailable OZZY, MARLEN Primary Care Unavailable DAMARIS, ALDO Attending Unavailable OZZY, MARLEN Primary Care Unavailable [facility] Primary Care Unavailable DAMARIS, ALDO Attending Unavailable OZZY, MARLEN Primary Care Unavailable FERNANDO DE LA ROSA Admitting Unavailable FERNANDO DE LA ROSA Attending Unavailable INGA, EDWIGE Attending Unavailable OZZY, MARLEN Primary Care Unavailable OZZY, MARLEN Primary Care Unavailable OZZY, MARLEN Primary Care Unavailable INGA, EDWIGE Referring Unavailable OZZY, MARLEN Primary Care Unavailable OZZY, MARLEN Attending Unavailable FERNANDO DE LA ROSA Referring Unavailable INGA, EDWIGE Referring Unavailable OZZY, MARLEN Primary Care Unavailable DAMARIS, ALDO Attending Unavailable OZZY, MARLEN Primary Care Unavailable DAMARIS, ALDO Attending Unavailable OZZY, MALREN Primary Care Unavailable DAMARIS, ALDO Attending Unavailable OZZY, MARLEN Primary Care Unavailable DAMARIS, ALDO Attending Unavailable OZZY, MARLEN Primary Care Unavailable FERNANDO DE LA ROSA Referring Unavailable OZZY, MARLEN Primary Care Unavailable OZZY, MARLEN Primary Care Unavailable DAMARIS, ALDO Attending Unavailable OZYZ, MARLEN Primary Care Unavailable DE LA ROSA, FERNANDO Referring Unavailable OZZY, MARLEN Primary Care Unavailable DAMARIS, ALDO Attending Unavailable OZZY, MARLEN Primary Care Unavailable OZZY, MARLEN Primary Care Unavailable OZZY, MARLEN Primary Care Unavailable OZZY, MARLEN Primary Care Unavailable OZZY, MARLEN Primary Care Unavailable DAMARIS, ALDO Attending Unavailable OZZY, MARLEN Primary Care Unavailable OZZY, MARLEN Primary Care Unavailable OZZY, MARLEN Primary Care Unavailable OZZY, MARLEN Primary Care Unavailable OZZY, MARLEN Primary Care Unavailable DAMARIS, ALDO Attending Unavailable OZZY, MARLEN Primary Care Unavailable OZZY, MARLEN Primary Care Unavailable OZZY, MARLEN Primary Care Unavailable [facility] Primary Care Unavailable FERNANDO DE LA ROSA Attending Unavailable DAMARIS, ALDO Attending Unavailable OZZY, MARLEN Primary Care Unavailable OZZY, MARLEN Primary Care Unavailable ARIES FOFANA Attending Unavailable OZZY, MARLEN Primary Care Unavailable DAMARIS, ALDO Attending Unavailable OZZY, MARLEN Primary Care Unavailable OZZY, MARLEN Primary Care Unavailable OZZY, MARLEN Primary Care Unavailable FERNANDO DE LA ROSA Attending Unavailable OZZY, MARLEN Primary Care Unavailable FERNANDO DE LA ROSA Attending Unavailable RJ FERNANDO Referring Unavailable OZZY, MARLEN Primary Care Unavailable FERNANDO DE LA ROSA Attending Unavailable RJ, FERNANDO Referring Unavailable OZZY, MARLEN Primary Care Unavailable JAMAICA DE LA ROSAHEN Referring Unavailable JAMAICA DE LA ROSAHEN Attending Unavailable STOUT, MARLEN Primary Care Unavailable JAMAICA DE LA ROSAHEN Attending Unavailable STOUT, MARLEN Primary Care Unavailable DAMARIS, ALDO Referring Unavailable OZZY, MARLEN Primary Care Unavailable JAMAICA DE LA ROSAHEN Attending Unavailable OZZY, MARLEN Primary Care Unavailable DE LA ROSA, FERNANDO Referring Unavailable DE LA ROSA, FERNANDO Referring Unavailable RJ, FERNANDO Attending Unavailable OZZY, MARLEN Primary Care Unavailable IDALMIS COBB Referring Unavailable JAMAICA DE LA ROSAHEN Attending Unavailable EDWIGE XIONG Attending Unavailable OZZY, MARLEN Primary Care Unavailable Unavailable Primary Care Provider Unavailabl e Unavailable Primary Care Provider Unavailabl e CHANG THORPE Attending Unavailab CHANG Bender Referring Unavailab CHANG Bender Referring Unavailab CHANG Bender Attending Unavailab CHANG Bender Referring Unavailab CHANG Bender Attending Unavailab le Care Physician, No Primary Primary Care Provider Unavailable Dr. Amadou Cobos DO Attending Provider Dr. Amadou Cobos DO Emergency Provider [phone] Lonnie Aviles DO Emergency Provider [phone] Care Physician, No Primary Primary Care Provider Unavailable Dr. Lonnie Aviles DO Attending Provider Provider, Ed Physician Emergency Provider BIANCA Henning Attending Unavailable BIANCA MORENO Primary Care Unavailable BIANCA MORENO Admitting Unavailable Dr. Ian Yepez DO Emergency Provider [phone] MOSES MORSE Attending Unavailable SELF Referring Unavailable REMY CHARLES Attending Unavailable Provider, Ed Physician Attending Provider Dr. Ian Ellis DO Attending Provider Roxanne CHOWDHURY, Dr. Vela Emergency Provider Care Physician, No Primary Primary Care Unava ilable Finley, Ranulfo Attending Unavailable Dane Oliveira Attending Unavailable Care Physician, No Primary Primary Care Unava ilable Ian Yepez Attending Unavailable Care Physician, No Primary Primary Care Unava ilable Provider, Ed Physician Attending Unavailab le Care Physician, No Primary Primary Care Unava ilable Lonnie Aviles Attending Unavailable Care Physician, No Primary Primary [...] 12/20/2022 12/30/2022 Active take 2 tablets by [facility] every six hours as needed acetaminophen (TYLENOL) 325 mg tablet Ta ke 650 mg by mouth every 6 hours as needed for Pain. Active Comment on above: Take 650 mg by mouth every 6 hours as needed for Pain. acetaminophen 325 mg / HYDROcodone bitartrate 5 mg oral tablet (8 sources) Opioid Agonist Start: 05-11-2025 take 1 tablet by mouth every six hours as needed for pain Hydrocodone-Acetam inophen 5-325 mg tablet Active 1 {tbl} PO EVERY 6 HOURS NEEDED as needed for Pain 10 3 0 May 11, 2025 Pain in pelvis Pelvic and perineal pain take 1 tablet by [facility] every four hours as needed for pain HYDROcodone-acetaminophen ([place]) 5-325 MG tablet Take 1 tablet by mouth every 4 hours as needed for severe pain (7-10). 0 Active apixaban 2.5 mg oral tablet (20 sources) Factor Xa Inhibitor Start: 12-20-2022 End: 01-17-2023 take 1 tablet by mouth twice daily [...] 0 Active cephalexin 500 mg oral capsule (12 sources) Cephalosporin Antibacterial Start: 04-19-2025 take 1 capsule by mouth twice daily Cephalexin 500 mg capsule Active 500 mg PO TWICE A DAY 10 5 April 19, 2025 12:00am Start: 02-19-2023 End: 02-26-2023 take 1 capsule by mouth three times daily cephalexin (Keflex) 500 MG capsule Take 1 capsule (500 mg) by mouth 3 times daily for 7 days. 21 capsule 0 02/19/2023 02/26/2023 Active estradiol 1 mg oral tablet (18 sources) Estrogen Start: 04-27-2024 End: 04-27-2025 take 1 tablet by mouth once daily estradiol (ESTRACE) 1 mg tablet Take 1 tablet by mouth once daily. 30 tablet 5 04/27/2024 Active Start: 04-13-2024 estradiol (NEELAM BEV-DOT) 0.075 [...] oral tablet (15 sources) Opioid Agonist Start: End: take 1 tablet by mouth every four [...] tablet 0 12/26/2022 01/02/2023 Discontinued (Therapy completed) phenazopyridine hydrochloride 200 mg oral tablet (15 sources) Start: 07-05-2025 take 1 tablet by mouth three times daily Phenazopyridine (Pyridium) 200 mg tablet Active 200 mg PO THREE TIMES A DAY July 05, 2025 12:00am Start: 05-11-2025 take 1 tablet by [facility] three times daily as needed for pain Phenazopyridine (Azo Urinary Pain Relief) 95 mg tablet Active 95 mg PO THREE TIMES A DAY as needed for pain May 11, 2025 12:00am Start: 03-17-2023 take 1 tablet by [facility] th three times daily phenazopyridine (Pyridium) 200 MG [...] chew. 60 tablet 11 02/11/2023 02/11/2024 Active Icvfwthu-Nn-Fir-Fe-FA ( VITAMIN) tab (14 sources) Start: 07-01-2017 take 1 tablet by mouth once daily Lhbvludw-Uq-Lcw-Fe-F A ( VITAMIN) tab Take 1 tablet by mouth once daily. 30 tablet 5 07/01/2017 Active Comment on above: Take 1 tablet by [facility] th once daily. prochlorperazine 10 mg oral tablet (20 sources) Phenothiazine Start: 01-01-2023 End: 12-31-2023 take 1 tablet by mouth every six hours as needed for nausea prochlorperazine (Compazine) 10 MG tablet Indications: Stage I adenocarcinoma of cervix (CMS/HCC) (HCC) Take 1 tablet (10 mg) by mouth every 6 hours as needed for nausea or vomiting. 30 tablet 2 01/01/2023 12/31/2023 Active sulfamethoxazole 800 mg / trimethoprim 160 mg oral tablet (3 sources) Dihydrofolate Reductase Inhibitor Antibacterial, Sulfonamide Antimicrobial Start: 05-11-2025 Sulfamethoxazole-Tri methoprim 800-160 mg tablet Active 1 {tbl} PO TWICE A DAY July 05, 2025 12:00am Completed/Discontinued Medications Medication Drug Class(es) Dates Sig (Normalized) Sig (Original) 200 actuat albuterol 0.09 mg/actuat dry powder inhaler (4 sources) beta2-Adrenergic Agonist Start: 12-22-2024 End: 05-11-2025 Albuterol Sulfate 90 mcg/actuation aerosol powdr breath activated Discontinued 1 NMA INHALATION EVERY 6 HOURS as needed for shortness of breath 1 0 December 22, 2024 1:00am May 11, 2025 2:02pm amoxicillin 500 mg / clavulanate 125 mg [...] IVPB docusate sodium 50 mg / sennosides, skilled nursing 8.6 mg oral tablet (12 sources) Start: 12-20-2022 End: 12-20-2023 take 8.6-50 mg by mouth twice daily as needed senna-docusate (Kusum-Colace) 8.6-50 MG tablet Take 1 tablet by [...] sodium chloride 0.9 % 250 mL IVPB nitrofurantoin, macrocrystals 25 mg / nitrofurantoin, monohydrate 75 mg oral capsule (3 sources) Nitrofuran Antibacterial Start: 04-22-2025 End: 05-11-2025 take 1 capsule by mouth every twelve hours at mealtime Nitrofurantoin Monohyd/M-Cryst (Macrobid) 100 mg capsule Discontinued 100 mg PO Q12H 10 5 April 22, 2025 12:00am May 11, 2025 1:20pm must administer with a meal/food omeprazole 40 mg delayed release oral capsule (4 sources) Proton Pump Inhibitor Start: 12-04-2024 End: 05-11-2025 take 1 capsule by mouth once daily Omeprazole 40 mg capsule,delayed release(DR/EC) Discontinued 40 mg PO DAILY 30 December 04, 2024 1:00am May 11, 2025 2:02pm ondansetron 4 mg disintegrating oral tablet (20 sources) Serotonin-3 Receptor Antagonist Start: 12-04-2024 End: 05-11-2025 take 1 tablet by mouth every eight hours as needed for nausea Ondansetron 4 mg tablet,disintegrati ng Discontinued 4 mg PO EVERY 8 HOURS NEEDED as needed for Nausea 10 December 04, 2024 1:00am May 11, 2025 2:02pm Start: 01-01-2023 End: 03-03-2023 ondansetron (Zofran) 8 MG ta blet Indications: Stage I adenocarcinoma of cervix (CMS/HCC) (HCC) Take 1 tablet (8 mg) by mouth every 8 hours as needed for nausea or vomiting (Take 1 tablet 1 hour prior to radiation and 1 tablet 6 hours after radiation). 60 tablet 1 01/02/2023 03/03/2023 Active Start: 12-24-2022 End: 08-10-2024 take 1 tablet by mouth every six hours as needed for nausea and vomiting Ondansetron 4 mg tablet,disintegrating Discontinued 4 mg PO EVERY 6 HOURS as needed for nausea and vomiting 10 0 December 24, 2022 4:33am August 10, 2024 8:42am ondansetron (Zofran) 8 mg, dexAMETHasone (Decadron) 8 [...] sodium chloride 0.9 % 1,000 mL IVPB predniSONE 20 mg oral tablet (4 sources) Start: 12-22-2024 End: 05-11-2025 take 1 tablet by mouth once daily Prednisone 20 mg tablet Discontinued 20 mg PO DAILY 5 5 0 December 22, 2024 1:00am May 11, 2025 2:02pm Sodium Chloride (10 sources) Start: 03-04-2023 End: [...] Date Documented Da te Episodic/Chronic Abdominal pain (12 sources) Abdominal pain; Translations: [Unspecified abdominal pain] Onset: 12-22-2024 12-24-2022 Episodic Anxiety disorders (20 sources) Generalized anxiety disorder; Translations: [Generalized anxiety disorder] Onset: 12-19-2022 12-19-2022 Chronic Cancer of cervix (20 sources) Malignant neoplasm of endocervix; Translations: [Malignant neoplasm of endocervix] Onset: 12-17-2022 12-17-2022 Chronic Cancer of cervix (1 source) Personal history of malignant neoplasm of cervix uteri; Translations: [History of cervical cancer] Onset: 04-27-2024 Episodic Diseases of white blood cells (5 sources) Leukocytosis; Translations: [Elevated white blood cell count, unspecified] 12-24-2022 Chronic External Injury - Fall (1 source) Fall on same level from slipping, tripping and stumbling without subsequent striking against object, initial encounter; Translations: [FALL SAME LVL SLIP NO ST] Onset: 05-03-2016 External Injury - Unspecified (1 source) Activity, rough housing and horseplay; Translations: [ACTIVITY ROUGH HOUSING] Onset: 05-03-2016 Fever of unknown origin (4 sources) Fever; Translations: [Fever, unspecified] 08-18-2024 Episodic Fluid and electrolyte disorders (6 sources) Dehydration; Translations: [Dehydration] 12-24-2022 Episodic Genitourinary symptoms and ill-defined conditions (2 sources) Urge incontinence of urine; Translations: [Urge incontinence] Onset: 05-11-2025 05-11-2025 Chronic Genitourinary symptoms and ill-defined conditions (9 sources) Dysuria; Translations: [Dysuria] Onset: 02-18-2023 Episodic Menopausal disorders (6 sources) Menopausal symptom; Translations: [Menopausal and female climacteric states] Onset: 05-07-2023 05-07-2023 Chronic Nausea and vomiting (5 sources) Nausea and vomiting; Translations: [Nausea with vomiting, unspecified] 12-24-2022 Episodic Other aftercare (3 sources) History of malignant neoplasm of cervix; Translations: [Encounter for follow-up examination after completed treatment for malignant neoplasm] 03-22-2024 Episodic Other connective tissue disease (1 source) Pelvic floor dysfunction; Translations: [Other specified disorders of muscle] 12-29-2023 Episodic Other diseases of bladder and urethra (1 source) Spasm of bladder; Translations: [Other specified disorders of bladder] 05-12-2023 Chronic Other infections; including parasitic (1 source) H/O: infectious disease; Translations: [Personal history of other infectious and parasitic diseases] 07-05-2025 Episodic Other upper respiratory infections (4 sources) Upper respiratory infection; Translations: [Acute upper respiratory infection, unspecified] 08-18-2024 Episodic Residual codes; unclassified (2 sources) Tobacco use and exposure - finding; Translations: [Tobacco use] 05-11-2025 Episodic Substance-related disorders (1 source) Nicotine dependence, cigarettes, uncomplicated; Translations: [NICOTINE DEPEND CIGARETT] Onset: 05-03-2016 Chronic Superficial injury; contusion (5 sources) Hematoma of abdominal wall; Translations: [Contusion of abdominal wall, initial encounter] 12-24-2022 Episodic Unclassified (1 source) Cough, unspecified; Translations: [Cough, unspecified] Onset: 09-06-2024 Urinary tract infections (20 sources) Cystitis; Translations: [Cystitis, unspecified without hematuria] Onset: 03-31-2019 05-07-2023 Episodic Viral infection (4 sources) Disease caused by 2019-nCoV; Translations: [COVID-19] 08-10-2024 Episodic Past or Other Problems Problem Classification Problem Date Documented Da te Episodic/Chronic Nonspecific chest pain (1 source) Chest pain, unspecified; Translations: [Chest pain, unspecified] Onset: 5 Episodic Other connective tissue disease (2 sources) [...] [UNSPECIFIED SPRAIN LT FO] Onset: 6 Episodic Results Test Name Value Interpretation Reference Range Facil ity Urine Cultureon 07-07-2025 URC #2 Below infection level. Escherichia coli Collins Count 11,000-25,000 Mixed Gram Positive Organisms Mixed Gram Positive Organisms MIXC Mixed contaminants. Submit a new specimen if indicated. Escherichia coli: REACTION Ampicillin Islt DIAZ >=32 Ampicillin+Sulbac Islt DIAZ 16 I Cefepime Islt DIAZ <=0.12 cefTRIAXone Islt DIAZ <=0.25 S Ciprofloxacin Islt DIAZ 0.5 I B-Lactamase Extended Susc Islt NEG Gentamicin Islt DIAZ <=1 S levoFLOXacin Islt DIAZ 1 I Meropenem Islt DIAZ <=0.25 S Nitrofurantoin Islt DIAZ <=16 S Pip+Tazo Islt DIAZ <=4 S TMP SMX Islt DIAZ >=320 R Normal [facility] Comment on above: Performed By: #### L [id number] #### [facility] Laboratory [address] [place], [address] Emergency Department Summary on 07-06-2025 Emergency Department Summary [facility] Medical Records Department [address] [place] [address] Emergency Department Summary 07/06/25 MR#: [id number] Acct: [id number] Name: COREY PERLA Brigette Rep #: [id number] : 1990 34 From: Dane Carson PCP: Care Physician,No Primary Status:DEP ER Location: ED HPI HPI - Female History of Present Illness Chief Complaint: Complaint Informant: patient and spouse/S.O. Narrative Narrative: Increasing suprapubic pressure dysuria over the last couple days. History of UTIs. No fevers. No vomiting. No vaginal bleeding or abnormal discharge. Prior similar symptoms: Yes PFSH PFSH Medical History ESBL (extended spectrum beta-lactamase) producing bacteria infection Former smoker Cervical cancer Home Medications ???Medication ???Instructions ???Recorded ???Last Taken ???Type hydrocodone-acetamino phen 5-325mg 1 tab PO Q6H PRN PRN Pain 3 days 05/11/25 Unknown Rx 5mg-325mg #10 TABLETS phenazopyridine 95 mg tablet (Azo 95 mg PO TID PRN pain 05/11/25 History Urinary Pain Relief) sulfamethoxazole 800 1 tab PO BID #14 TABLETS 05/11/25 Unknown Rx mg-trimethoprim 160 mg tablet phenazopyridine 200 mg tablet 200 mg PO TID #20 tabs 07/05/25 Un known Rx (Pyridium) sulfamethoxazole 800 1 tab PO BID #28 TABLETS 07/05/25 Unknown Rx mg-trimethoprim 160 mg tablet Allergy/AdvReac Type Severity Reaction Status Date / Time No Known Allergies Allergy Verified 07/05/25 19:57 Family History no significant family his Surgical History S/P hysterectomy Social History household members: significant other and children Smoking Status: Current every day smoker tobacco type: cigarettes ROS ROS ED Constitutional Constitutional ED: Denies chills or fever(s) Cardiovascular Cardiovascular: Denies chest pain Respiratory/Chest Respiratory/Chest: Denies cough Gastrointestinal Gastrointestinal: Reports abdominal pain; Denies diarrhea or vomiting Genitourinary Genitourinary ED: Reports dysuria Musculoskeletal Musculoskeletal: Denies none Integumentary Denies rash or wounds Neurologic Neurologic: Denies weakness EXAM Physical Exam Const Vital Signs: 07/05/25 21:17 Temperature 98.2 F Pulse Rate 73 Respiratory Rate 16 Blood Pressure 107/58 L Blood Pressure Mean 74 Pulse Ox 98 Positive well nourished and well developed General Appearance ED: well developed and NAD HEENT Reports moist mucous membranes normocephalic and atraumatic Eyes General Eye ED: Yes normal appearance of both eyes Neck full ROM Chest Wall Chest: Negative for tenderness Resp normal respiratory effort and normal air movement Effort and Inspection: symmetric chest movement; Negative for respiratory distress Cardio regular rate, regular rhythm and no murmurs Peripheral Pulses: pulses 2+ throughout GI normal to inspection, nondistended, normoactive bowel sounds GI Narrative: Mild tenderness suprapubic. Negative Salcedo's or McBurney's tenderness. Palpation: Negative for guarding or rebound tenderness present Back/Spine no CVA tenderness Extremity normal to inspection General Extremety ED: Negative for edema or tenderness General Extremity: Negative for edema Neuro oriented x3 and no sensory deficits noted Sensorium / Orientation: awake and alert Skin no rashes or lesions noted and no wounds MDM MDM MDM Narrative Medical decision making narrative: Interventions / MDM: Differential diagnosis: UTI, history of ESBL, dysuria Diagnosis considered but do not suspect: N/A My EKG interpretation: N/A Imaging independently reviewed and interpreted by myself: N/A External documents reviewed: History of ESBL sensitive to Macrobid Zosyn and Bactrim. Test considered but not ordered:N/A ED course: Nontoxic vital signs stable. Having dysuria or suprapubic tenderness. Urine was sent. She started on Pyridium. Urine with signs of infection culture sent. She is covered for Bactrim 14 days for recurrent UTIs. Outpatient follow-up given with urology. All questions were answered. Re-evaluation: stable Disposition discussed with patient/family/signif icant other: Patient Case discussed with consulting clinician: N/A This note was generated with [employer] dictation software. It may contain incorrect words, spelling, and punctuation that were not noted in checking the note before signing. Discharge Plan Triage Chief Complaint: Complaint ED Provider: Dane Oliveira Dx/Rx/DC Orders Clinical Impression: UTI (urinary tract infection), Dysuria, History of ESBL E. coli infection Instructions: Dysuria, ED UTIs Wo (more content not included)... Normal [facility] Bilirubin Test strip Ql (U)O rdered By: Dane Oliveira on 07-05-2025 Bilirubin Ql (U) Negative Negative [facility] Ketones Test strip Ql (U)Ord ered By: Dane Oliveira on 07-05-2025 Ketones Ql (U) Negative Negative [facility] Microscopic analysis of urin e for red blood cells (RBC)Ordered By: Dane Oliveira on 07-05-2025 Microscopic analysis of urine for red blood cells (RBC) 0-5 SEEN /hpf 0-5 [facility] Mucus LM Ql (Urine sed)Order ed By: Dane Oliveira on 07-05-2025 Mucus Ql (Urine sed) 0 SEEN /hpf [facility] Nitrite Test strip Ql (U)Ord ered By: Dane Oliveira on 07-05-2025 Nitrite Ql (U) Negative Negative [facility] Protein Test strip Ql (U)Ord ered By: Dane Oliveira on 07-05-2025 Protein Ql (U) 30 mg/dl High Negative [facility] Squamous epithelial cells de tection in urine sediment by light microscopyOrdered By: Dane Oliveira on 07-05-2025 Epithelial cells.squamous LM Ql (Urine sed) 0-5 SEEN /hpf 5-10 [facility] Urinalysis, Completeon 07-05 BACTERIA 1+ /hpf Normal None Seen [facility] Comment on above: Order Comment: CLEAN CATCH Performed By: #### [id number] #### [facility] [address] [place], [address] EPI,SQUAMOUS 0-5 SEEN Normal 5-10 [facility] Comment on above: Order Comment: CLEAN CATCH Performed By: #### [id number] #### [facility] [address] [place], [address] RBC 0-5 SEEN Normal 0-5 [facility] Comment on above: Order Comment: CLEAN CATCH Performed By: #### [id number] #### [facility] [address] [place], [address] WBC 50-100 SEEN Normal 0-5 [facility] Comment on above: Order Comment: CLEAN CATCH Performed By: #### [id number] #### [facility] [address] [place], [address] Mucus Ql (Urine sed) 0 SEEN Normal [facility] Comment on above: Order Comment: CLEAN CATCH Performed By: #### [id number] #### [facility] [address] [place], [address] Urine clarityOrdered By: Mina Oliveira on 07-05-2025 Clarity (U) Cloudy Clear [facility] Urine color determinationOrd ered By: Dane Oliveira on 07-05-2025 Color (U) Yellow Yellow [facility] Urine glucose detectionOrder ed By: Dane Oliveira on 07-05-2025 Glucose Ql (U) Normal mg/dl Normal [facility] Urine leukocyte esterase det ection by dipstickOrdered By: Dane Oliveira on 07-05-2025 Leukocyte esterase Test strip Ql (U) 100 /ul High Negative [facility] Urine pHOrdered By: Dane Oliveira on 07-05-2025 pH (U) 6.0 [pH] 5.0 - 8.0 [facility] Urine sediment bacteria coun t by microscopy (number/high power field)Ordered By: Dane Oliveira on 07-05-2025 Bacteria LM.HPF (Urine sed) [#/Area] 1 /[HPF] None Seen [facility] Urine specific gravity measu rementOrdered By: Dane Oliveira on 07-05-2025 Specific gravity (U) [Rel density] 1.025 1.002-1.030 [facility] Urine urobilinogen measureme ntOrdered By: Dane Oliveira on 07-05-2025 Urobilinogen Ql (U) Normal mg/dl Normal [facility] White blood cell countOrdere d By: Dane Oliveira on 07-05-2025 White blood cell count 50-100 SEEN /hpf 0-5 [facility] BACTERIAL VAGINOSIS NAATon 0 06-16-2025 Lactobacillus crispatus+gasseri+filipe enii + Gardnerella vaginalis + Atopobium vaginae rRNA SHIVA+probe Ql (Vag fld) Detected Abnormal Not detected [facility] Comment on above: Order Comment: Speci men Type: SWAB Ordering Facility: [facility] Address: [address] [place] [address] Performed By: #### 3 6902-5, BVAMP #### [facility] CLIA [id number] [address] [place] [address] [place] Bacteria Ur Culton 5 Bacteria identified Cx Nom (U) ORGANISM ID: 1 10,000 -<50,000 CFU/ml Mixed microbiota No further workup. Mixed microbiota can be due to???urine???contamin ation with skin bacteria at time of collection or presence of a long-term urinary catheter. If a new culture is needed, please consider re-education of the patient on proper midstream collection technique or straight catheterization for???urine???collect ion. Normal [facility] Comment on above: Performed By: #### 6 30-4 #### [facility] CLIA [id number] [address] [place] [address] [place] C. trachomatis+N. gonorrhoea e DNA SHIVA+probe Ql (Unsp spec)on 06-16-2025 C. trachomatis rRNA SHIVA+probe Ql (Unsp spec) Not detected Normal Not detected [facility] Comment on above: Order Comment: Speci men Type: SWAB Ordering Facility: [facility] Address: [address] [place] [address] Performed By: #### 3 6902-5, BVAMP #### [facility] CLIA [id number] [address] [place] [address] [place] N. gonorrhoeae rRNA SHIVA+probe Ql (Unsp spec) Not detected Normal Not detected [facility] Comment on above: Order Comment: Speci men Type: SWAB Ordering Facility: [facility] Address: [address] [place] [address] Performed By: #### 3 6902-5, BVAMP #### [facility] CLIA [id number] [address] [place] [address] [place] YOSELIN/TRICHOMONAS NAATon 0 06-16-2025 C. glabrata RNA SHIVA+probe Ql (Vag fld) Not detected Normal Not detected [facility] Comment on above: Order Comment: Speci men Type: SWAB Ordering Facility: [facility] Address: [address] [place] [address] Performed By: #### C VTV #### [facility] CLIA [id number] [address] [place] [address] [place] Yoselin sp DNA SHIVA+probe Ql (Vag fld) Not detected Normal Not detected [facility] Comment on above: Order Comment: Speci men Type: SWAB Ordering Facility: [facility] Address: [address] [place] [address] Result Comment: The Yoselin species group target includes C. albicans, C. tropicalis, C. parapsilosis, and C. dubliniensis. Performed By: #### C VTV #### [facility] CLIA [id number] [address] [place] [address] [place] T. vaginalis DNA SHIVA+probe Ql (Unsp spec) Not detected Normal Not detected [facility] Comment on above: Order Comment: Speci men Type: SWAB Ordering Facility: [facility] Address: [address] [place] [address] Performed By: #### C VTV #### [facility] CLIA [id number] [address] [place] [address] OF [place] CNOVon 06-16-2025 CNOV Office Visit (WOUCA) COREY PERLA ([id number]) 1990 F Date Time Provider Department 06/16/25 4:45 PM MOSES MORSE During your visit today, we recorded the following information about you: Temperature Pulse Respiration Blood pressure 98 degrees 64/minute 18/minute 134/78 Weight 67.5 kg Moses Morse APRN.SENIOR INSIGHT MANAGER INTERNATIONAL 06/16/2025 5:39 PM Addendum [facility] Subjective Corey Perla is a 34 year old female. Patient presents with: UTI: Pain with urination, belly pains x2 days HPI Nontoxic-appearing 34-year-old female past medical history malignant neoplasm of cervix presents urgent care chief complaint possible UTI. Duration symptoms 2 days. Associated symptoms dysuria frequency vaginal discomfort and dyspareunia. Patient states was seen here 1 month ago. Did have significant abdominal pain. Referred to ED. CT abdomen pelvis indicated cystitis. Placed on Bactrim positive for E. coli. Presents today for evaluation. Denies any significant abdominal pain. Rates pain 1-2 out of 10 over bladder. Has noticed some dyspareunia that has been new and bothersome in the last couple days. Denies any fevers nausea vomiting flank pain. No vaginal discharge. Past medical history prescription medications allergies reviewed. Review of Systems Constitutional: Negative for chills, fatigue and fever. Gastrointestinal: Negative for abdominal distention, abdominal pain, nausea, rectal pain and vomiting. Genitourinary: Positive for dysuria and urgency. Negative for difficulty urinating, dyspareunia, enuresis, flank pain, frequency, genital sores, hematuria, pelvic pain, vaginal bleeding, vaginal discharge and vaginal pain. Objective BP 134/78 Pulse 64 Temp 36.7 ?C (98 ?F) Resp 18 Wt 67.5 kg (148 lb 13 oz) LMP 05/31/2017 SpO2 100% BMI 25.54 kg/m? Physical Exam Exam conducted with a inventory management specialist present. Constitutional: Appearance: Normal appearance. HENT: Mouth/Throat: Mouth: Mucous membranes are moist. Cardiovascular: Rate and Rhythm: Normal rate. Pulmonary: Effort: Pulmonary effort is normal. Breath sounds: Normal breath sounds. Abdominal: Tenderness: There is abdominal tenderness in the suprapubic area. There is no right CVA tenderness, left CVA tenderness, guarding or rebound. Comments: mild Genitourinary: Labia: Right: No tenderness. Left: No tenderness. Vagina: Vaginal discharge present. Neurological: Mental Status: She is alert. {ASSESSMENT/PLAN: 1. Pain with urination - ICD9: 788.1, ICD10: R30.9 - UA DIP, URINE (POC) - BACTERIAL CULTURE, URINE POC urine negative. History of UTI with similar symptoms with suprapubic tenderness placed on Keflex. Discontinue with urine culture is negative. No evidence acute abdomen. Additionally vaginal swabs obtained. Treat accordingly test results. Is following up with LANGUAGE THERAPIST oncology. Patient was educated on supportive therapies. Patient will follow up with primary care provider as needed. Patient was instructed to immediately proceed to emergency room for any new, worsening, or symptoms lasting longer than anticipated. The patient's clinical presentation is otherwise unremarkable at this time. Based on exam and clinical finding, the patient is stable for discharge. Plan of care was discussed with patient. Patient verbalizes understanding and agrees to plan of care. This note was generated using BeQuan software. It may contain errors in wording, punctuation, or spelling. Moses Morse APRN.SENIOR INSIGHT MANAGER [employer] History and Record Review Clinical information obtained from an independent historian. History obtained from or confirmed by: parent. External record(s) reviewed: prior outpatient record. Disposition The patient was discharged. OTC Medications were advised: Procedures Allergies As of Date: 06/16/2025 (No Known Allergies) Date Reviewed: 06/16/2025 Reviewed by: Adina Hunter MA - Fully Assessed Reason for Visit: UTI [116] Cmt: Pain with urination, belly pains x2 days Primary Visit Diagnosis:Pain with urination [R30.9] Order(s):UA DIP, URINE (POC) [8500779] Order #: [id number]. #:[id number] BACTERIAL CULTURE, URINE [SQURCUL] Order #: [id number]. #:[id number] cephALEXin (KEFLEX) 500 mg capsuleTake 1 capsule by mouth two times a day for 5 days.Disp: 10 capsuleRfl: 0 YOSELIN/TRICHOMONAS NAAT [SQCVTV] Order #: [id number]. #:[id number] BACTERIAL VAGINOSIS NAAT [SQBVAMP] Order #: [id number]. #:[id number] GONORRHEA/CHLAMYDIA NAAT [SQGCCT] Order #: [id number]. #:[id number] Prescriptions as of 06/16/2025 - sulfamethoxazole-trim ethoprim (BACTRIM DS) 800-160 mg per tablet Take 1 tablet by mouth every 12 hours. - cephALEXin (KEFLEX) 500 mg capsule Take 1 capsule by mouth two times a day for 5 days. - estradiol (ESTRACE) 1 mg ta (more content not included)... Normal [facility] Abdomen/Pelvis W IV Cont ONL Yon 05-11-2025 Abdomen/Pelvis W IV Cont ONLY [facility] [address] [place] [address] Abdomen/Pelvis W IV Cont ONLY MR#: [id number] Acct: [id number] Name: COREY PERLA Rep #: [id number] : 1990 F 34 From: Lucian Corcoran MD PCP: Care Physician,No Primary Status: REG ER Study: Abdomen/Pelvis W IV Cont ONLY Date of Exam: Exam# [id number] Ordering Dr: Ian Yepez DO PROCEDURE: ABDOMEN/PELVIS W IV CONT ONLY 05/11/2025 REASON FOR EXAM: PELVIC PAIN TECHNIQUE: ABDOMEN/PELVIS W IV CONT ONLY Coronal and Sagittal reconstruction series were provided. CONTRAST: Isovue 370 VOLUME: 100 mL One or more dose reduction techniques were used (e.g., Automated exposure control, adjustment of the mA and/or kV according to patient size, use of iterative reconstruction technique. RADIATION DOSE SUMMARY: CTDlvol: 44.28 mGy DLP: 1249.33 mGycm COMPARISON: 12/04/2024 FINDINGS: Lung bases: Mild dependent atelectasis Liver: No suspicious lesion identified within the liver, there is subtle intrahepatic biliary dilatation which is unexpected in a patient of this age who still has her gallbladder. There is no biliary dilatation and no obstructing stone noted within the extrahepatic common bile duct. Gallbladder: Unremarkable Spleen: Normal size. Pancreas: Normal size without evidence of mass surrounding inflammation or ductal dilation. Adrenals: Unremarkable Kidneys: No obstructive uropathy or suspicious solid renal lesion. Stable punctate nonobstructing renal stones. Bladder: Nonspecific circumferential bladder wall thickening can be seen with cystitis. Reproductive Organs: Not present, likely surgically absent Bowel: Nondistended fluid-filled small bowel loops suggest ileus. Retained stool noted in the colon Appendix: Normal appendix seen on coronal recon images 45 through 57 No free intraperitoneal fluid, air, or suspicious adenopathy Bones: Unremarkable CT/Abdomen/Pelvis W IV Cont ONLY IMPRESSION: Bladder distends normally with subtle circumferential bladder wall thickening which can be seen with cystitis. Please correlate with urinalysis There is subtle intrahepatic biliary dilatation which is unusual in a patient of this age who still has a gallbladder. There is no CT evidence of cholecystitis or extrahepatic biliary dilatation. No evidence of a stone within the extrahepatic common bile duct. This biliary dilatation is new since the previous study No free intraperitoneal fluid, air, or suspicious adenopathy, normal appendix visualized Reading Location: [id number] CC: Dr. Ian Yepez DO; No Primary Care Physician Survey Instrument Operator: Signed Normal [facility] Absolute lymphocyte countOrd ered By: Ian Yepez on 05-11-2025 Lymphocytes Auto (Unsp spec) [#/Vol] 2.85 10*3/uL 0.83-4.51 [facility] Absolute neutrophil countOrd ered By: Ian Yepez on 05-11-2025 Neutrophils (Bld) [#/Vol] 6.9 10*3/uL 2.0-7.7 [facility] Anion gap in Serum or Plasma Ordered By: Ian Yepez on 05-11-2025 Anion gap [Moles/Vol] 10 mmol/L 5-15 [facility] Automated lymphocyte count a s percentage of total leukocytesOrdered By: Ian Yepez on 05-11-2025 Lymphocytes/100 WBC Auto (Unsp spec) 26.0 % -41 [facility] BUN/creatinine ratioOrdered By: Ian Yepez on 05-11-2025 Urea nitrogen/Creatinine [Mass ratio] 20.7 mg/mg High 10-20 [facility] Basic Metabolic Profile (BMP )on 05-11-2025 BUN/CRE 20.7 RATIO High 10-20 [facility] Comment on above: Performed By: #### L 400.0001 #### [facility] Laboratory [address] [facility] [address] Calcium [Mass/Vol] 9.3 mg/dL Normal 7.6-11.0 [facility] Comment on above: Performed By: #### L 400.0001 #### [facility] [address] [place], [address] Chloride [Moles/Vol] 105 mmol/L Normal 98-108 [facility] Comment on above: Performed By: #### L 400.0001 #### [facility] [address] [facility] [address] CO2 [Moles/Vol] 24.2 mmol/L Normal 21.0-32.0 [facility] Comment on above: Performed By: #### L 400.0001 #### [facility] [address] [facility] [address] Creatinine [Mass/Vol] 0.66 mg/dL Low 0.70-1.20 [facility] Comment on above: Performed By: #### L 400.0001 #### [facility] [address] [place], [address] ECRCL 114.72 ml/min Normal 50-250 [facility] Comment on above: Performed By: #### L 400.0001 #### [facility] [address] [place], [address] GAP 10 Normal 5-15 [facility] Comment on above: Performed By: #### L 400.0001 #### [facility] [address] [place], [address] GFR/1.73 sq M.predicted among non-blacks MDRD (S/P/Bld) [Vol rate/Area] 119 mL/min/{1.73_m2} Normal >60 [facility] Comment on above: Result Comment: mL/m in/1.73m2 CKD-EPI Creatinine Equation (2020) Performed By: #### L 400.0001 #### [facility] [address] [place], [address] Glucose [Mass/Vol] 86 mg/dL Normal 70-99 [facility] Comment on above: Performed By: #### L 400.0001 #### [facility] [address] [place], [address] Potassium [Moles/Vol] 3.8 mmol/L Normal 3.3-5.1 [facility] Comment on above: Performed By: #### L 400.0001 #### [facility] [address] [place], [address] Sodium [Moles/Vol] 139 mmol/L Normal 133-145 [facility] Comment on above: Performed By: #### L 400.0001 #### [facility] [address] [place], [address] Urea nitrogen [Mass/Vol] 14 mg/dL Normal 4-19 [facility] Comment on above: Performed By: #### L 400.0001 #### [facility] [address] [place], [address] Basophil percentageOrdered B y: Ian Yepez on 05-11-2025 Basophils/100 WBC (Bld) 0.6 % 0-1 [facility] Bilirubin Test strip Ql (U)O rdered By: Ian Yepez on 05-11-2025 Bilirubin Ql (U) 3 mg/dL High Negative [facility] Comment on above: YCOLOR OF URINE MAY AFFECT DIPSTICK RESULTS. CBC W/Diff, Automatedon Absolute Lymph 2.85 X10 3/uL Normal 0.83-4.51 [facility] Comment on above: Performed By: #### L 400.0001 #### [facility] [address] [facility] [place], [address] Absolute Neut 6.9 X10 3/uL Normal 2.0-7.7 [facility] Comment on above: Performed By: #### L 400.0001 #### [facility] [address] [facility] [place], [address] Basophils/100 WBC (Bld) 0.6 % Normal 0-1 [facility] Comment on above: Performed By: #### L 400.0001 #### [facility] [address], [address] Eosinophils/100 WBC (Bld) 3.7 % Normal 0-5 [facility] Comment on above: Performed By: #### L 400.0001 #### [facility] [address] [facility] [place], [address] Erythrocyte distribution width (RBC) [Ratio] 12.8 % Normal 11.6-14.6 [facility] Comment on above: Performed By: #### L 400.0001 #### [facility] [address] [place], [address] Hematocrit (Bld) [Volume fraction] 39.6 % Normal 37-47 [facility] Comment on above: Performed By: #### L 400.0001 #### [facility] [address] [place], [address] Hemoglobin (Bld) [Mass/Vol] 13.3 g/dL Normal 12.0-15.0 [facility] Comment on above: Performed By: #### L 400.0001 #### [facility] [address] [place], [address] IG% 0.200 Normal 0.0-0.9 [facility] Comment on above: Result Comment: IG% - Immature Granulocytes (promyelocytes, myelocytes and metamyelocytes) > 1% indicates that a LEFT SHIFT is Present. Performed By: #### L 400.0001 #### [facility] [address] [place], [address] Lymphocytes/100 WBC (Bld) 26.0 % Normal 19-41 [facility] Comment on above: Performed By: #### L 400.0001 #### [facility] [address] [place], [address] MCH (RBC) [Entitic mass] 31.4 pg Normal 27.0-32.0 [facility] Comment on above: Performed By: #### L 400.0001 #### [facility] [address] [place], [address] MCHC (RBC) [Mass/Vol] 33.6 g/dL Normal 32-36 [facility] Comment on above: Performed By: #### L 400.0001 #### [facility] [address] [place], [address] MCV (RBC) [Entitic vol] 93.6 fL Normal 81-99 [facility] Comment on above: Performed By: #### L 400.0001 #### [facility] [address] [place], [address] Monocytes/100 WBC (Bld) 6.9 % Normal 0-10 [facility] Comment on above: Performed By: #### L 400.0001 #### [facility] [address] [place], [address] Neutrophils/100 WBC (Bld) 62.6 % Normal 47-70 [facility] Comment on above: Performed By: #### L 400.0001 #### [facility] [address] [place], [address] Nucleated RBC (Bld) [#/Vol] 0 10*3/uL Normal 0-5 [facility] Comment on above: Performed By: #### L 400.0001 #### [facility] [address] [place], [address] Platelet mean volume (Bld) [Entitic vol] 8.9 fL Normal 6.2-12.0 [facility] Comment on above: Performed By: #### L 400.0001 #### [facility] [address] [place], [address] Platelets (Bld) [#/Vol] 299 10*3/uL Normal 150-450 [facility] Comment on above: Performed By: #### L 400.0001 #### [facility] [address] [place], [address] RBC (Bld) [#/Vol] 4.23 10*6/uL Normal 4.2-5.4 [facility] Comment on above: Performed By: #### L 400.0001 #### [facility] [address] [place], [address] RDW SD 43.8 fl Normal 35.1-43.9 [facility] Comment on above: Performed By: #### L 400.0001 #### [facility] [address] [place], [address] WBC (Bld) [#/Vol] 11.0 10*3/uL Normal 4.4-11.0 [facility] Comment on above: Performed By: #### L 400.0001 #### [facility] [address] [place], [address] CNOVon 05-11-2025 CNOV Office Visit (UCWSTR ) COREY PERLA ([id number]) 1990 F Date Time Provider Department 05/11/25 11:15 AM REMY CHARLES [facility] During your visit today, we recorded the following information about you: Temperature Pulse Respiration Blood pressure 98.2 degrees 73/minute 20/minute 100/72 Weight 67.7 kg Remy Charles APRN.SENIOR INSIGHT MANAGER INTERNATIONAL 05/11/2025 11:55 AM Signed Patient was seen 3 weeks ago and treated for a UTI that showed E. coli. Patient was treated with Macrobid. Patient says she never got any better. Patient says she is not having 10 out of 10 abdominal pain and incontinence. Patient has a history of hysterectomy with cervical cancer. At this time due to 10 out of 10 abdominal pain and incontinence patient is being referred to the emergency room. Patient did take Azo this morning so the dip is an accurate but believe there is more going on than a UTI. As patient was treated appropriately. Patient agreeable. Referring Provider: SELF [200] Allergies As of Date: 05/11/2025 (No Known Allergies) Date Reviewed: 05/11/2025 Reviewed by: Renuka Moya MA - Fully Assessed Reason for Visit: Urinary Problem [252] Cmt: Painful urinary incontinence x 3 weeks Primary Visit Diagnosis:Urge incontinence [N39.41] Other Visit Diagnosis:Generalized abdominal pain [R10.84] Order(s):UA DIP, URINE (POC) [2199632] Order #: [id number] #:[id number] Prescriptions as of 05/11/2025 - estradiol (ESTRACE) 1 mg tablet Take 1 tablet by mouth once daily. - estradiol (VIVELLE-DOT) 0.075 mg/24 hr Apply 1 patch every 3 1/2 days. LICHA - acetaminophen (TYLENOL) 325 mg tablet Take 650 mg by mouth every 6 hours as needed for Pain. - Aeyhtccl-We-Dky-Fe-FA ( VITAMIN) tab Take 1 tablet by mouth once daily. Problem List As Of Date 05/11/2025 Noted Resolved UTI (urinary tract infection) [N39.0] 03/31/2019 Malignant neoplasm of overlapping sites of cerv*04/06/2024 Encounter Status:Closed by REMY CHARLES on 05/11/25 [facility] Carbon dioxide, total [Moles /volume] in Central venous bloodOrdered By: Ian Yepez on 05-11-2025 CO2 [Moles/Vol] 24.2 mmol/L 21.0-32.0 [facility] Chloride assayOrdered By: Jerson Yepez on 05-11-2025 Chloride [Moles/Vol] 105 mmol/L 98-108 [facility] Emergency Department Summary on 05-11-2025 Emergency Department Summary [facility] Medical Records Department [address] [place] [id number] Emergency Department Summary 05/11/25 MR#: [id number] Acct: [id number] Name: COREY PERLA Rep #: [id number] : 1990 34 From: Ian Yepez DO PCP: Care Physician,No Primary Status:DEP ER Location: ED HPI History of Present Illness Chief Complaint: Complaint Informant: patient Onset/Context/Timing Onset: Weeks (2) Context: Gradual Onset Timing: Continuous Quality: Burning Location: Lower abdomen Worsened by: Nothing Relieved by: Nothing Narrative Narrative: Patient presents with pelvic pain and dysuria that has been getting worse over the past 2 weeks. Patient states it is gradually getting worse. Patient describes her pain as a burning sensation. Patient states it is over the lower abdomen. Patient states nothing makes it better nothing makes it worse. Patient denies any fevers or chills. Patient denies any nausea or vomiting. Patient denies any neck or back pain. PFSH [facility] Medical History ESBL (extended spectrum beta-lactamase) producing bacteria infection Former smoker Cervical cancer Home Medications ???Medication ???Instructions ???Recorded ???Last Taken ???Type hydrocodone-acetamino phen 5-325mg 1 tab PO Q6H PRN PRN Pain 3 days 05/11/25 Unknown Rx 5mg-325mg #10 TABLETS phenazopyridine 95 mg tablet (Azo 95 mg PO TID PRN pain 05/11/25 History Urinary Pain Relief) sulfamethoxazole 800 1 tab PO BID #14 TABLETS 05/11/25 Unknown Rx mg-trimethoprim 160 mg tablet Allergy/AdvReac Type Severity Reaction Status Date / Time No Known Allergies Allergy Verified 05/11/25 12:12 Family History no significant family his Surgical History S/P hysterectomy Social History household members: significant other and children Smoking Status: Current every day smoker tobacco type: cigarettes ROS ROS ED Constitutional Constitutional ED: Denies chills or fever(s) Eyes Eyes: Denies blurry vision or change in vision ENT ENT ED: Denies rhinorrhea or sore throat Cardiovascular Cardiovascular: Denies chest pain or palpitations Respiratory/Chest Respiratory/Chest: Denies cough or dyspnea Gastrointestinal Gastrointestinal: Reports abdominal pain; Denies nausea or vomiting Genitourinary Genitourinary ED: Reports dysuria; Denies hematuria Musculoskeletal Musculoskeletal: Denies back pain or neck pain Integumentary Denies abscess or rash Neurologic Neurologic: Denies headache(s) or weakness Allergic/Immunologic Allergic/Immunologic ED: Denies mouth swelling or urticaria EXAM Physical Exam Const Vital Signs: 05/11/25 12:12 05/11/25 14:33 Temperature 99 F Temperature Source Temporal Pulse Rate 67 65 Respiratory Rate 14 15 Blood Pressure 122/82 H 121/71 H Blood Pressure Mean 95 87 Pulse Ox 99 98 Oxygen Delivery Method Room Air Positive well nourished and well developed General Appearance ED: well developed and NAD HEENT Reports moist mucous membranes Neck supple and no JVD Resp normal respiratory effort and clear to auscultation bilaterally Cardio regular rate and regular rhythm GI non-distended Palpation: soft and tender LLQ, RLQ and suprapubic Extremity normal to inspection Neuro oriented x3, CN's II-XII intact bilaterally and no sensory deficits noted Sensorium / Orientation: alert Motor Exam: strength 5/5 throughout Psych mental status grossly normal MDM MDM MDM Narrative Medical decision making narrative: Differential diagnosis includes urinary tract infection, pyelonephritis, dehydration, ureteral calculus, and electrolyte abnormality. CBC will be obtained to assess for leukocytosis and anemia. Basic metabolic profile will be obtained to assess for electrolyte abnormality and renal function. Serum hCG will be obtained to assess for . Urinalysis will be obtained to assess for urinary tract infection. CT scan of the abdomen and pelvis will be obtained to assess for pyelonephritis and ureteral calculus. History Record Review Additional record(s) reviewed:: Prior ED visit and Prior labs Lab Data Attestation: I reviewed the patient's lab results. Lab results narrative: CBC was reviewed and was within normal limits. Basic metabolic profile was reviewed and was essentially within normal limits. Serum hCG was reviewed and was negative. Urinalysis was reviewed. Leukocyte esterase was 500. There are 50-100 white blood cells. There are no bacteria noted. Labs: Laboratory Results - last 24 hr 05/11/25 05/11/25 12:18 13:59 WBC 11.0 RBC 4.23 Hgb 13.3 Hct 3 (more content not included)... Normal [facility] Eosinophil percentageOrdered By: Ian Yepez on 05-11-2025 Eosinophils/100 WBC (Bld) 3.7 % 0-5 [facility] Erythrocyte distribution wid th ratioOrdered By: Ian Yepez on 05-11-2025 Erythrocyte distribution width (RBC) [Ratio] 12.8 % 11.6-14.6 [facility] Erythrocyte distribution wid th standard deviationOrdered By: Ian Yepez on 05-11-2025 Erythrocyte distribution width (RBC) [Ratio] 43.8 fl 35.1-43.9 [facility] Glomerular filtration rate ( GFR) estimation/1.73 sq m using serum, plasma, or whole bOrdered By: Ian Yepez on 05-11-2025 GFR/1.73 sq M.predicted among non-blacks MDRD (S/P/Bld) [Vol rate/Area] 119 mL/min/{1.73_m2} >60 [facility] Comment on above: mL/min/1.73m2 CKD-EP I Creatinine Equation (2020) Hematocrit Auto (Bld) [Volum e fraction]Ordered By: Ian Yepez on 05-11-2025 Hematocrit (Bld) [Volume fraction] 39.6 % 37-47 [facility] Hemoglobin measurementOrdere d By: Ian Yepez on 05-11-2025 Hemoglobin (Bld) [Mass/Vol] 13.3 g/dL 12.0-15.0 [facility] Immature granulocytes/100 WB C Auto (Bld)Ordered By: Ian Yepez on 05-11-2025 Immature granulocytes/100 WBC (Bld) 0.200 % 0.0-0.9 [facility] Comment on above: IG% - Immature Granu locytes (promyelocytes, myelocytes and metamyelocytes) > 1% indicates that a LEFT SHIFT is Present. Ketones Test strip Ql (U)Ord ered By: Ian Yepez on 05-11-2025 Ketones Ql (U) Negative Negative [facility] MCV (mean corpuscular volume ) determinationOrdered By: Ian Yepez on 05-11-2025 MCV (RBC) [Entitic vol] 93.6 fL 81-99 [facility] Mean corpuscular hemoglobin (MCH) determinationOrdered By: Ian Yepez on 05-11-2025 MCH (RBC) [Entitic mass] 31.4 pg 27.0-32.0 [facility] Mean corpuscular hemoglobin concentration (MCHC) determinationOrdered By: aIn Yepez on 05-11-2025 MCHC (RBC) [Mass/Vol] 33.6 g/dL 32-36 [facility] Mean platelet volume determi nationOrdered By: Ian Yepez on 05-11-2025 Platelet mean volume (Bld) [Entitic vol] 8.9 fL 6.2-12.0 [facility] Microscopic analysis of urin e for red blood cells (RBC)Ordered By: Ian Yepez on 05-11-2025 Microscopic analysis of urine for red blood cells (RBC) 0 SEEN /hpf 0-5 [facility] Monocyte percentageOrdered B y: Ian Yepez on 05-11-2025 Monocytes/100 WBC (Bld) 6.9 % 0-10 [facility] Mucus LM Ql (Urine sed)Order ed By: Ian Yepez on 05-11-2025 Mucus Ql (Urine sed) 0 SEEN /hpf [facility] Neutrophil percentageOrdered By: Ian Yepez on 05-11-2025 Neutrophils/100 WBC (Bld) 62.6 % 47-70 [facility] Nitrite Test strip Ql (U)Ord ered By: Ian Yepez on 05-11-2025 Nitrite Ql (U) Positive High Negative [facility] Nucleated red blood cell per centageOrdered By: Ian Yepez on 05-11-2025 Nucleated RBC/100 WBC (Bld) [Ratio] 0 % 0-5 [facility] Platelet countOrdered By: Jerson Yepez on 05-11-2025 Platelets (Bld) [#/Vol] 299 10*3/uL 150-450 [facility] Potassium measurement (mass/ volume)Ordered By: Ian Yepez on 05-11-2025 Potassium (Unsp spec) [Mass/Vol] 3.8 mmol/L 3.3-5.1 [facility] ,Serum,hCG Quali.on 05-11-2025 HCG, SERUM QUAL Negative Normal [facility] Comment on above: Performed By: #### L [id number] #### [facility] [address] [place] [address], [id number] Protein Test strip Ql (U)Ord ered By: Ian Yepez on 05-11-2025 Protein Ql (U) 100 mg/dl High Negative [facility] RBC Auto (Bld) [#/Vol]Ordere d By: Ian Yepez on 05-11-2025 RBC (Bld) [#/Vol] 4.23 10*6/uL 4.2-5.4 [facility] Serum beta-hCG test, qualita tiveOrdered By: Ian Yepez on 05-11-2025 Beta HCG ( test) Ql Negative [facility] Serum creatinine measurement (mass/volume)Ordered By: Ian Yepez on 05-11-2025 Creatinine [Mass/Vol] 0.66 mg/dL Low 0.70-1.20 [facility] Serum glucose measurement (m ass/volume)Ordered By: Ian Yepez on 05-11-2025 Glucose [Mass/Vol] 86 mg/dL 70-99 [facility] Serum or plasma calcium haydee urement (mass/volume)Ordered By: Ian Yepez on 05-11-2025 Calcium [Mass/Vol] 9.3 mg/dL 7.6-11.0 [facility] Serum or plasma urea nitroge n measurement (mass/volume)Ordered By: Ian Yepez on 05-11-2025 Urea nitrogen [Mass/Vol] 14 mg/dL 4-19 [facility] Sodium levelOrdered By: Ian Yepez on 05-11-2025 Sodium [Moles/Vol] 139 mmol/L 133-145 [facility] Squamous epithelial cells de tection in urine sediment by light microscopyOrdered By: Ian Yepez on 05-11-2025 Epithelial cells.squamous LM Ql (Urine sed) 0-5 SEEN /hpf 5-10 [facility] UA DIP, URINE (POC)on 2024 BILIRUBIN UA (POCT) Small Abnormal Negative [facility] CLARITY UA (POCT) Clear [facility] COLOR UA (POCT) [place] [facility] GLUCOSE UA (POCT) 100 mg/dL Abnormal Negative [facility] Hemoglobin Ql (U) Small Abnormal Negative [facility] Interpretation and review of laboratory results Abnormal [facility] KETONE UA (POCT) Negative Negative mg/dL [facility] LEUKOCYTES UA (POCT) Trace Abnormal Negative [facility] NITRITE UA (POCT) Positive Abnormal Negative [facility] PH UA (POCT) 5.5 4.5 - 8.0 [facility] Protein Ql (U) 100 mg/dL Abnormal Negative [facility] SPECIFIC GRAVITY UA (POCT) 1.025 1.005 - 1.030 [facility] UROBILINOGEN UA (POCT) 1 Normal E.U./d L [facility] Location:[facility], [address] [place] [address], [place], [address] [facility] POINT OF CARE [facility] Urinalysis, Completeon 05-11 EPI,SQUAMOUS 0-5 SEEN Normal 5-10 [facility] Comment on above: Order Comment: CLEAN CATCH Performed By: #### L [id number] #### [facility] [address] [place], [address] WBC 50-100 SEEN Normal 0-5 [facility] Comment on above: Order Comment: CLEAN CATCH Performed By: #### L [id number] #### [facility] [address] [place], [address] BACTERIA 0 SEEN Normal None Seen [facility] Comment on above: Order Comment: CLEAN CATCH Performed By: #### L [id number] #### [facility] [address] [place], [address] Mucus Ql (Urine sed) 0 SEEN Normal [facility] Comment on above: Order Comment: CLEAN CATCH Performed By: #### L [id number] #### [facility] [address] [place], [address] RBC 0 SEEN Normal 0-5 [facility] Comment on above: Order Comment: CLEAN CATCH Performed By: #### L [id number] #### [facility] [address] [place], [address] Urine clarityOrdered By: Analisa Yepez on 05-11-2025 Clarity (U) Sl. Cloudy Clear [facility] Urine color determinationOrd ered By: Ian Yepez on 05-11-2025 Color (U) Yellow Yellow [facility] Urine glucose detectionOrder ed By: Ian Yepez on 05-11-2025 Glucose Ql (U) Normal mg/dl Normal [facility] Urine leukocyte esterase det ection by dipstickOrdered By: Ian Yepez on 05-11-2025 Leukocyte esterase Test strip Ql (U) 500 /ul High Negative [facility] Urine pHOrdered By: Ian woody on 05-11-2025 pH (U) 6.0 [pH] 5.0 - 8.0 [facility] Urine sediment bacteria coun t by microscopy (number/high power field)Ordered By: Ian Yepez on 05-11-2025 Bacteria LM.HPF (Urine sed) [#/Area] 0 /[HPF] None Seen [facility] Urine specific gravity measu rementOrdered By: Ian Yepez on 05-11-2025 Specific gravity (U) [Rel density] 1.020 1.002-1.030 [facility] Urine urobilinogen measureme ntOrdered By: Ian Yepez on 05-11-2025 Urobilinogen Ql (U) 4 mg/dl High Normal [facility] White blood cell (WBC) count Ordered By: Ian Yepez on 05-11-2025 WBC (Bld) [#/Vol] 11.0 10*3/uL 4.4-11.0 [facility] White blood cell countOrdere d By: Ian Yepez on 05-11-2025 White blood cell count 50-100 SEEN /hpf 0-5 [facility] Amorphous sediment detection in urine sediment by light microscopyOrdered By: ED PROVIDER on 05-09-2025 Amorphous sediment LM Ql (Urine sed) 3+ [facility] Bilirubin Test strip Ql (U)O rdered By: ED PROVIDER on 05-09-2025 Bilirubin Ql (U) Negative Negative [facility] ED MED ADMINISTRATION DETAIL on 05-09-2025 ED MED ADMINISTRATION DETAIL [employer] Medication Administration Record [address] [address] [id number] 05/09/2025 Patient: COREY PERLA Sex: Female : 1990 Age: 34y MEASUREMENTS: Wt: 68.0 kg, Ht/Seng: 64.0 in, BMI: 25.75 ALLERGIES: No known drug allergies Medication Ordered Medication Administration Date/Time 1 of 1 Normal [facility] ED NURSES CLINICAL NOTEon ED NURSES CLINICAL NOTE Nurse Narrative Nurse Clinical Narrative [address] [address] [id number] 05/09/2025 16:24:00 [id number] Sex[facility] Female : 1990 Age: 34y Disposition: Left W/O Being Seen Disposition Decision Time: 17:57 05/09/2025 Departure Time: 17:57 05/09/2025 TRIAGE Arrived by private vehicle. Historian: (patient). Primary physician (None). Triage time: 17:50 05/09/2025. Acuity: LEVEL 3. Chief Complaint: ABDOMINAL PAIN and URINARY FREQUENCY and URGENCY (pressure in lower abd , dribbling urine). Onset. (2 weeks ago). ( was seen in 2 weeks ago at [place] and was placed on Cipro and Macrobid). -- 17:55 05/09/25 EDT April Caldwell R.N. 17:55 05/09/25. BP: 110/47 MAP: 68. HR: 70. RR: 16. O2 saturation: 98% Temperature: 98.7 F. Pain level now 10/10. -- 17:56 05/09/25 EDT April Caldwell R.N. 17:56 05/09/25. SEPSIS SCREEN: NEGATIVE. SIRS criteria negative. Possible sources of infection: UTI. -- 17:56 05/09/25 LISAT April Caldwell R.N. Measurements: 17:54 05/09/25 Wt: 68.0 kg, Ht/Seng: 64.0 in, BMI: 25.75 -- 17:54 05/09/25 EDT April Caldwell R.N. Medications: no known home medications -- 17:53 05/09/25 EDT April Caldwell R.N. 1 of 3 Nurse Narrative 17:50 05/09/25. Preferred Pharmacy: ([facility] in [place]). -- 17:55 05/09/25 LISAT April Caldwell R.N. Allergies: no known drug allergies -- 17:53 05/09/25 THIAGO Caldwell R.N. Home Medications/Allergy Information Source: patient -- 17:53 05/09/25 LISAT April Caldwell R.N. Problems: cervical and uterine cancer -- 17:53 05/09/25 LISAT April Caldwell, R.N. Surgeries: Hysterectomy -- 17:53 05/09/25 EDT April Caldwell R.N. History 17:50 05/09/25. PAST MEDICAL HX: Immunizations: up-to-date. LNMP: No menstrual periods. Denies current . SOCIAL HX: Current every day light tobacco smoker- less than 1/2 a pack per day. No alcohol use or drug use. The patient has not traveled outside the [place] Infectious disease exposure: No infectious disease exposure. ABUSE ASSESSMENT: The patient answered yes to the question(s) Do you feel safe in your home? and no to the question(s) Are you afraid to go home?. Abuse denied. No suspicion of abuse. SELF HARM ASSESSMENT: Self harm assessment was performed. The patient answered no to the question(s) Have you recently felt down, depressed, or hopeless? and Do you have thoughts of harming or killing yourself?. 2 of 3 Nurse Narrative FALL RISK ASSESSMENT: Fall risk assessment completed. No risk factors identified. -- 17:55 05/09/25 EDT April Caldwell R.N. Interventions 17:50 05/09/25. Advanced care plan discussed with patient (Full Code). -- 17:55 05/09/25 EDT April Caldwell R.N. DISPOSITION / DISCHARGE Departure time: 17:57 05/09/2025. The patient left the Emergency Department without being seen by a physician and completion of treatment; patient was accompanied by spouse. The patient appears to be alert and oriented x4. The patient stated is leaving due to personal reasons and the long waiting time. The patient left the Emergency Department ambulatory and via private vehicle. -- 18:21 05/09/25 EDT April Caldwell R.N. (Electronically signed by April Caldwell R.N. 05/09/25 18:21:38 EDT) Generated by [facility] 3 of 3 Normal [facility] ED ORDER SHEET (CPOE ONLY)on 05-09-2025 ED ORDER SHEET (CPOE ONLY) Order Sheet Order Sheet [address] [place] [address] [id number] 05/09/2025 Patient: COREY PERLA Sex: Female : 1990 Age: 34y MEASUREMENTS: Wt: 68.0 kg, Ht/Seng: 64.0 in, BMI: 25.75 ALLERGIES: No known drug allergies MEDICATION/IV/DRIP/FL UID ORDERS Order Description Priority Entered Acknowledged Completed LAB ORDERS Order Description Priority Entered Acknowledged Collected Completed DIAGNOSTIC STUDY ORDERS Order Description Priority Entered Acknowledged Completed STAFF ORDERS Order Description Priority Entered Acknowledged Collected Completed 1 of 1 [facility] ED SUPER BILLon 05-09-[address] [address] [id number] 05/09/2025 Patient: COREY PERLA Sex: Female : 1990 Age: 34y Item Professional Category Description Facility Code Code Quantity Fee Total Grand Total $0.00 1 of 1 [facility] ED VISIT SUMMARYon ED VISIT SUMMARY Visit Overview Visit Overview [address] [address] [id number] 05/09/2025 Patient: COREY PERLA Sex: Female : 1990 Age: 34y 05/09/2025 06:21 PM EDT ED Arrival:16:24 05/09/2025 EDT Status:not Recent Travel:no Language:eng Adv Directive: Isolation Status: Ethnicity:N Fall Risk:no risk Infectious Disease Exposure:no Measurements:5'4 / 162.6 Self-Harm Status:risk Sepsis Screen:negative cm 150.0 lb / 68.0 kg Chief Complaint:ABDOMINAL PAIN, URINARY FREQUENCY, URINARY URGENCY, (2 weeks ago), (None), (pressure in lower abd , dribbling urine ), and (was seen in 2 weeks ago at [place] and was placed on Cipro and Macrobid ) ALLERGIES No Known Drug Allergies HOME MEDICATIONS None 1 of 3 Visit Overview PAST MEDICAL HISTORY / PROBLEMS cervical and uterine cancer Immunizations: up-to-date LNMP: No menstrual periods PAST SURGICAL HISTORY Hysterectomy SOCIAL HISTORY Smoking status: Yes Alcohol use: No Drug use: No ED COURSE MEDICATIONS GIVEN IN EMERGENCY DEPARTMENT IV SITE INFORMATION INTAKE OUTPUT REASSESMENT (most recent) VITAL SIGNS First Vitals Last Vitals Temp 17:55 05/09/25 98.7 F Temp 17:55 05/09/25 98.7 F BP 17:55 05/09/25 110/47 BP 17:55 05/09/25 110/47 HR 17:55 05/09/25 70 HR 17:55 05/09/25 70 RR 17:55 05/09/25 16 RR 17:55 05/09/25 16 O2 Sat 17:55 05/09/25 98% O2 Sat 17:55 05/09/25 98% Pain 17:55 05/09/25 10 Pain 17:55 05/09/25 10 ETCO2 17:55 05/09/25 ETCO2 17:55 05/09/25 GCS 17:55 05/09/25 GCS 17:55 05/09/25 RTS 17:55 05/09/25 RTS 17:55 05/09/25 2 of 3 Visit Overview PROCEDURES NURSING INTERVENTIONS LABS / STUDIES CLINICAL IMPRESSION 3 of 3 Normal [facility] ED VITALS FLOW SHEETon 05-09 ED VITALS FLOW SHEET Vitals Vital Sign Flow Sheet [address] [address] [id number] 05/09/2025 Patient: COREY PERLA Sex: Female : 1990 Age: 34y Measurements Wt: 68.0 kg, Ht/Seng: 64.0 in, BMI: 25.75 Measured Time BP MAP HR RR O2Sat ETCO2 Temp Pain GCS RTS 17:55 05/09/2025 110/47 68 70 16 98% 98.7 F 10 1 of 1 Normal [facility] Ketones Test strip Ql (U)Ord ered By: ED PROVIDER on 05-09-2025 Ketones Ql (U) Negative Negative [facility] Microscopic analysis of urin e for red blood cells (RBC)Ordered By: ED PROVIDER on 05-09-2025 Microscopic analysis of urine for red blood cells (RBC) 10-25 SEEN /hpf 0-5 [facility] Comment on above: Previous reported re sult: 0 SEEN /hpfEdited by: KATI on 05/09/25:1952 AMENDED REPORT 05/09/251952 RBC-UA previously reported as: 0 SEEN /hpf Mucus LM Ql (Urine sed)Order ed By: ED PROVIDER on 05-09-2025 Mucus Ql (Urine sed) 0 SEEN /hpf [facility] Nitrite Test strip Ql (U)Ord ered By: ED PROVIDER on 05-09-2025 Nitrite Ql (U) Negative Negative [facility] ,Urineon 05-09-2025 Beta HCG ( test) Ql (U) Negative Normal [facility] Comment on above: Result Comment: Very dilute urine specimens, as indicated by a low specific gravity, may not contain marketing development representative levels of hCG. If is still suspected, a first morning urine specimen should be collected 48 hours later and tested. Performed By: #### L [id number], [id number] #### [facility] [address] [place], [place], [phone] Protein Test strip Ql (U)Ord ered By: ED PROVIDER on 05-09-2025 Protein Ql (U) 30 mg/dl High Negative [facility] Squamous epithelial cells de tection in urine sediment by light microscopyOrdered By: ED PROVIDER on 05-09-2025 Epithelial cells.squamous LM Ql (Urine sed) 0-5 SEEN /hpf 5-10 [facility] Comment on above: Previous reported re sult: 0 SEEN /hpfEdited by: KATI on 05/09/25:1954 AMENDED REPORT 05/09/251954 SQUAM EPI previously reported as: 0 SEEN /hpf Urinalysis, Completeon 05-09 AMORPHOUS 3+ Normal [facility] Comment on above: Order Comment: CLEAN CATCH Performed By: #### L [id number], [id number] #### [facility] [address] [place], [place], [phone] Urine clarityOrdered By: ED PROVIDER on 05-09-2025 Clarity (U) Cloudy Clear [facility] Urine color determinationOrd ered By: ED PROVIDER on 05-09-2025 Color (U) Yellow Yellow [facility] Urine glucose detectionOrder ed By: ED PROVIDER on 05-09-2025 Glucose Ql (U) Normal mg/dl Normal [facility] Urine leukocyte esterase det ection by dipstickOrdered By: ED PROVIDER on 05-09-2025 Leukocyte esterase Test strip Ql (U) 500 /ul High Negative [facility] Urine pHOrdered By: ED PROVI PEDRO on 05-09-2025 pH (U) 7.0 [pH] 5.0 - 8.0 [facility] Urine testOrdered By: ED PROVIDER on 05-09-2025 HCG ( test) Ql (U) Negative [facility] Comment on above: Very dilute urine sp ecimens, as indicated by a low specificgravity, may not contain marketing development representative levels of hCG. If is still suspected, a first morning urinespecimen should be collected 48 hours later and tested. Urine sediment bacteria coun t by microscopy (number/high power field)Ordered By: ED PROVIDER on 05-09-2025 Bacteria LM.HPF (Urine sed) [#/Area] 2 /[HPF] None Seen [facility] Comment on above: Previous reported re sult: 0 SEEN /hpfEdited by: KATI on 05/09/25:1954 AMENDED REPORT 05/09/251954 BACTERIA previously reported as: 0 SEEN /hpf Urine specific gravity measu rementOrdered By: ED PROVIDER on 05-09-2025 Specific gravity (U) [Rel density] 1.010 1.002-1.030 [facility] Urine urobilinogen measureme ntOrdered By: ED PROVIDER on 05-09-2025 Urobilinogen Ql (U) Normal mg/dl Normal [facility] White blood cell countOrdere d By: ED PROVIDER on 05-09-2025 White blood cell count >100 SEEN /hpf 0-5 [facility] Comment on above: Previous reported re sult: 0 SEEN /hpfEdited by: KATI on 05/09/25:1953 AMENDED REPORT 05/09/251953 WBC previously reported as: 0 SEEN /hpf Urine Cultureon 04-22-2025 [facility] Copy of report sent to Infection Control Printer [id number] 04/22/25 0066 BLUCAS. ESBL Escherichia coli Collins Count 11,000-25,000 MARKER ESBL producing OrganismA MARKER ESBL producing OrganismA Amikacin Islt DIAZ 2 S Ampicillin Islt DIAZ >=32 Ampicillin+Sulbac Islt DIAZ 16 I Cefepime Islt DIAZ 8 I Eravacycline Islt DIAZ <=0.12 S cefTRIAXone Islt DIAZ >=64 R Ciprofloxacin Islt DIAZ 0.5 I B-Lactamase Extended Susc Islt POS Gentamicin Islt DIAZ <=1 S Imipenem Islt DIAZ <=0.25 S levoFLOXacin Islt DIAZ 1 I Meropenem Islt DIAZ <=0.25 S Nitrofurantoin Islt DIAZ <=16 S Pip+Tazo Islt DIAZ <=4 S Tobramycin Islt DIAZ <=1 S TMP SMX Islt DIAZ <=20 S Normal [facility] Comment on above: Performed By: #### L 400.0001 #### [facility] Laboratory [address] [place], [address] 12 Lead EKGon 04-19-2025 12 Lead EKG [facility] Cardiovascular Services [address] [place] [address] 12 Lead EKG 04/19/25 0107 MR#: [id number] Acct: [id number] Name: COREY PERLA Rep #: [id number] : 1990 34 From: Emanuel Harrington MD Attending Dr: Status: DEP ER Ordering Dr: Lonnie Aviles DO Date: 04/19/25 Location: ED Sex: F C Admitted: Test Reason : DYSRHYTHMIA Blood Pressure : */* mmHG Vent. Rate : 71 BPM Atrial Rate : 71 BPM P-R Int : 194 ms QRS Dur : 94 ms QT Int : 390 ms P-R-T Axes : 66 60 48 degrees QTcB Int : 423 ms Normal sinus rhythm Incomplete right bundle branch block Borderline ECG Confirmed by Emanuel Harrington ([id number]), editor dictionary ELISHA HAYS ([id number]) on 04/19/2025 11:17:17 AM Referred By: Confirmed By: Emanuel Harrington 04/19/25 1117 Date Emanuel Harrington MD CC: Dr. Lonnie Aviles DO; No Primary Care Physician Signed Normal [facility] Bilirubin Test strip Ql (U)O rdered By: Lonnie Aviles on 04-19-2025 Bilirubin Ql (U) 6 mg/dL High Negative [facility] Comment on above: COLOR OF URINE MAY A FFECT DIPSTICK RESULTS. Emergency Department Summary on 04-19-2025 Emergency Department Summary [facility] Medical Records Department [address] [place] [address] Emergency Department Summary 04/19/25 MR#: [id number] Acct: [id number] Name: COREY PERLA Rep #: [id number] : 1990 34 From: Lonnie Aviles DO PCP: Care Physician,No Primary Status:DEP ER Location: ED ADDENDUM by Dr. Thuy Marshall DO on 04/22/25 at 0901 Urine culture came back as ESBL E. coli [id number] CFU per mL. Due to the symptomatic nature of the patient and the fact that his ESBL will treat. Macrobid 100 mg twice daily for 5 days called in. Patient instructed to stop taking her Keflex. 04/22/25 0901 Cosigner Signature (if applicable): cc: No Primary Care Physician * Signed HPI History of Present Illness Chief Complaint: Complaint Narrative Narrative: Patient is a 34-year-old female with past medical history of cervical cancer status post hysterectomy who presented to the emergency department with a chief complaint of lower abdominal pressure and urinating frequently and having burning when urinating. He states that this has been going on for approximately 2 days and she states that she tried to take Azo did not get any relief therefore she came here to the emergency department to be evaluated. Patient denies any nausea vomiting diarrhea denies any other abdominal surgery besides her hysterectomy for cervical cancer [facility] Medical History Former smoker Cervical cancer Home [...] days #5 tabs 12/11 01/04 Unknown Rx cephalexin 500 mg capsule 500 mg PO BID 5 days #10 caps 04/10 Unknown Rx Allergy/AdvReac Type Severity Reaction Status Date / Time No Known Allergies Allergy Verified 04/19/25 00:07 Family History no significant family his Surgical History S/P hysterectomy Social History household members: significant other and children Smoking Status: Current every day smoker tobacco type: cigarettes ROS ROS ED ROS Narrative Constitutional: Denies fevers, chills Abdomen: Complains of lower abdominal pressure as noted above denies nausea vomit diarrhea : Complains urinary symptoms as noted above Neurological: Denies numbness, weakness, tingling Musculoskeletal: Denies back pain Skin: Denies rashes or lesions EXAM Physical Exam Narrative Exam Narrative: General: Patient lying in bed rest comfortably did not appear to be acute distress Head: Atraumatic, normocephalic Eyes: PERRL bilaterally, EOMI blood, no conjunctival injection noted Neck: Soft and supple, trachea midline Abdomen: Soft, nondistended, nontender to palpation no rebound or guarding on exam Musculoskeletal: No CVA tenderness on exam, nontender to palpation in the midline of the thoracolumbar spine Extremities: +5/5 strength noted in the bilateral upper and lower extremities Neurological: Patient follow commands knew that she was at [facility] years 2024 Skin: Warm, dry, tact no rashes or lesions noted Const Vital Signs: 04/19/25 00:05 04/19/25 00:07 04/19/25 01:18 Temperature 97.6 F L 97.6 F L Temperature Source Oral Oral Pulse Rate 79 79 68 Respiratory Rate 16 16 Blood Pressure 147/62 H 147/62 H 101/54 L Blood Pressure Mean 90 90 69 Pulse Ox 98 98 96 Oxygen Delivery Method Room Air Room Air Room Air MDM MDM MDM Narrative Medical decision making narrative: Patient is a 34-year-old female who presents to the emergency department with concern for urinary tract infection. On the differential diagnosis includes but not limited to UTI, pyelonephritis. Once workup is obtained reviewed she will be reevaluated. Patient urinalysis reviewed and showed evidence of UTI with 25 leukocyte esterase positive nitrites 25-50 white cells with 3+ bacteria. Patient's test was negative. She is given her first dose of Keflex here in the emergency department. Patient's EKG showed sinus rhythm with a rate of 71 bpm Discussed the results with the patient and she would like to go home at this point time. She was advised to follow-up with a doctor in the outpatient setting and she was referred to 1. She was adv ised to follow-up on the urine culture to ensure that she is on the appropriate antibiotic. (more content not included)... Normal [facility] Ketones Test strip Ql (U)Ord ered By: Lonnie Aviles on 04-19-2025 Ketones Ql (U) Negative Negative [facility] Microscopic analysis of urin e for red blood cells (RBC)Ordered By: Lonnie Aviles on 04-19-2025 Microscopic analysis of urine for red blood cells (RBC) 0 SEEN /hpf 0-5 [facility] Mucus LM Ql (Urine sed)Order ed By: Lonnie Aviles on 04-19-2025 Mucus Ql (Urine sed) RARE /hpf [facility] Nitrite Test strip Ql (U)Ord ered By: Lonnie Aviles on 04-19-2025 Nitrite Ql (U) Positive High Negative [facility] ,Urineon 04-19-2025 Beta HCG ( test) Ql (U) Negative Normal [facility] Comment on above: Order Comment: COLOR OF URINE MAY AFFECT DIPSTICK RESULTS. Result Comment: Very dilute urine specimens, as indicated by a low specific gravity, may not contain marketing development representative levels of hCG. If is still suspected, a first morning urine specimen should be collected 48 hours later and tested. Performed By: #### L 400.7600, L400.0001 #### [facility] Laboratory [address] [place], [address] Protein Test strip Ql (U)Ord ered By: Lonnie Aviles on 04-19-2025 Protein Ql (U) 100 mg/dl High Negative [facility] Squamous epithelial cells de tection in urine sediment by light microscopyOrdered By: Lonnie Aviles on 04-19-2025 Epithelial cells.squamous LM Ql (Urine sed) 5-10 SEEN /hpf 5-10 [facility] Urinalysis, Completeon 04-19 CAST,COARSE GR 0-5 SEEN Normal 0-5 /lpf [facility] Comment on above: Order Comment: COLOR OF URINE MAY AFFECT DIPSTICK RESULTS. CLEAN CATCH Performed By: #### L 400.7600, L400.0001 #### [facility] Laboratory [address] [place], [address] BACTERIA 3+ /hpf Normal None Seen [facility] Comment on above: Order Comment: COLOR OF URINE MAY AFFECT DIPSTICK RESULTS. CLEAN CATCH Performed By: #### L 400.7600, L400.0001 #### [facility] Laboratory [address] [place], [address] BILIRUBIN URINE 6 mg/dL Abnormal Negative [facility] Comment on above: Order Comment: COLOR OF URINE MAY AFFECT DIPSTICK RESULTS. CLEAN CATCH Result Comment: COLO R OF URINE MAY AFFECT DIPSTICK RESULTS. Performed By: #### L 400.7600, L400.0001 #### [facility] Laboratory [address] [place], [address] Color (U) ORANGE Normal Yellow [facility] Comment on above: Order Comment: COLOR OF URINE MAY AFFECT DIPSTICK RESULTS. CLEAN CATCH Performed By: #### L 400.7600, L400.0001 #### [facility] Laboratory [address] [place], [address] EPI,SQUAMOUS 5-10 SEEN Normal 5-10 [facility] Comment on above: Order Comment: COLOR OF URINE MAY AFFECT DIPSTICK RESULTS. CLEAN CATCH Performed By: #### L 400.7600, L400.0001 #### [facility] Laboratory [address] [place], [address] Mucus Ql (Urine sed) RARE Normal [facility] Comment on above: Order Comment: COLOR OF URINE MAY AFFECT DIPSTICK RESULTS. CLEAN CATCH Performed By: #### L 400.7600, L400.0001 #### [facility] Laboratory [address] [place], [address] WBC 25-50 SEEN Normal 0-5 [facility] Comment on above: Order Comment: COLOR OF URINE MAY AFFECT DIPSTICK RESULTS. CLEAN CATCH Performed By: #### L 400.7600, L400.0001 #### [facility] Laboratory [address] [place], [address] Clarity (U) Clear Normal Clear [facility] Comment on above: Order Comment: COLOR OF URINE MAY AFFECT DIPSTICK RESULTS. CLEAN CATCH Performed By: #### L 400.7600, L400.0001 #### [facility] Laboratory [address] [place], [address] GLUCOSE, UR Normal Normal Normal [facility] Comment on above: Order Comment: COLOR OF URINE MAY AFFECT DIPSTICK RESULTS. CLEAN CATCH Performed By: #### L 400.7600, L400.0001 #### [facility] Laboratory [address] [place], [address] KETONE UR Negative Normal Negative [facility] Comment on above: Order Comment: COLOR OF URINE MAY AFFECT DIPSTICK RESULTS. CLEAN CATCH Performed By: #### L 400.7600, L400.0001 #### [facility] Laboratory [address] [place], [address] LEUK ESTERASE 25 /ul Abnormal Negative [facility] Comment on above: Order Comment: COLOR OF URINE MAY AFFECT DIPSTICK RESULTS. CLEAN CATCH Performed By: #### L 400.7600, L400.0001 #### [facility] Laboratory [address] [place], [address] Nitrite Ql (U) Positive Abnormal Negative [facility] Comment on above: Order Comment: COLOR OF URINE MAY AFFECT DIPSTICK RESULTS. CLEAN CATCH Performed By: #### L 400.7600, L400.0001 #### [facility] Laboratory [address] [place], [address] OCCULT BLOOD-UR 25 /ul Abnormal Negative [facility] Comment on above: Order Comment: COLOR OF URINE MAY AFFECT DIPSTICK RESULTS. CLEAN CATCH Performed By: #### L 400.7600, L400.0001 #### [facility] Laboratory [address] [place], [address] pH UR 5.0 Normal 5.0 - 8.0 [facility] Comment on above: Order Comment: COLOR OF URINE MAY AFFECT DIPSTICK RESULTS. CLEAN CATCH Performed By: #### L 400.7600, L400.0001 #### [facility] Laboratory [address] [place], [address] PROT DIPSTX 100 mg/dl Abnormal Negative [facility] Comment on above: Order Comment: COLOR OF URINE MAY AFFECT DIPSTICK RESULTS. CLEAN CATCH Performed By: #### L 400.7600, L400.0001 #### [facility] Laboratory [address] [place], [address] SP.GR. DIPSTX 1.025 Normal 1.002-1.030 [facility] Comment on above: Order Comment: COLOR OF URINE MAY AFFECT DIPSTICK RESULTS. CLEAN CATCH Performed By: #### L 400.7600, L400.0001 #### [facility] Laboratory [address] [place], [address] UROBILI 12 mg/dl Abnormal Normal [facility] Comment on above: Order Comment: COLOR OF URINE MAY AFFECT DIPSTICK RESULTS. CLEAN CATCH Performed By: #### L 400.7600, L400.0001 #### [facility] Laboratory [address] [place], [address] RBC 0 SEEN Normal 0-5 [facility] Comment on above: Order Comment: COLOR OF URINE MAY AFFECT DIPSTICK RESULTS. CLEAN CATCH Performed By: #### L 400.7600, L400.0001 #### [facility] [place], [address] Urine clarityOrdered By: Lisbeth Aviles on 04-19-2025 Clarity (U) Clear Clear [facility] Urine coarse granular cast d etectionOrdered By: Lonnie Aviles on 04-19-2025 Coarse Granular Casts LM Ql (Urine sed) 0-5 SEEN /lpf 0-5 /lpf [facility] Urine color determinationOrd ered By: Lonnie Aviles on 04-19-2025 Color (U) ORANGE Yellow [facility] Urine cultureOrdered By: Lisbeth Aviles on 04-19-2025 Bacteria identified Cx Nom (U) ESBL Escherichia coli Abnormal [facility] Urine glucose detectionOrder ed By: Lonnie Aviles on 04-19-2025 Glucose Ql (U) Normal mg/dl Normal [facility] Urine leukocyte esterase det ection by dipstickOrdered By: Lonnie Aviles on 04-19-2025 Leukocyte esterase Test strip Ql (U) 25 /ul High Negative [facility] Urine pHOrdered By: Lonnie burch on 04-19-2025 pH (U) 5.0 [pH] 5.0 - 8.0 [facility] Urine testOrdered By: Lonnie Aviles on 04-19-2025 HCG ( test) Ql (U) Negative [facility] Comment on above: Very dilute urine sp ecimens, as indicated by a low specificgravity, may not contain marketing development representative levels of hCG. If is still suspected, a first morning urinespecimen should be collected 48 hours later and tested. Urine sediment bacteria coun t by microscopy (number/high power field)Ordered By: Lonnie Aviles on 04-19-2025 Bacteria LM.HPF (Urine sed) [#/Area] 3 /[HPF] None Seen [facility] Urine specific gravity measu rementOrdered By: Lonnie Aviles on 04-19-2025 Specific gravity (U) [Rel density] 1.025 1.002-1.030 [facility] Urine urobilinogen measureme ntOrdered By: Lonnie Aviles on 04-19-2025 Urobilinogen Ql (U) 12 mg/dl High Normal [facility] White blood cell countOrdere d By: Lonnie Aviles on 04-19-2025 White blood cell count 25-50 SEEN /hpf 0-5 [facility] 12 Lead EKGon 12-22-2024 12 Lead EKG [facility] Cardiovascular Services [address] [place] [address] 12 Lead EKG 12/22/24 1814 MR#: [id number] Acct: [id number] Name: COREY PERLA Rep #: [id number] : 1990 34 From: Rory Howell MD [...] Normal ECG Confirmed by DENNIS CHAMBERS, MICHELLE ([id number]), editor dictionary SUDHAKAR BARROSO ([id number]) on 12/24/2024 12:59:42 PM Referred By: Confirmed By: MICHELLE HOWELL MD 12/24/24 1259 Date Rory Howell MD CC: Dr. Amadou Cobos DO; No Primary Care Physician Signed Normal [facility] Absolute lymphocyte countOrd ered By: Amadou Cobos on 12-22-2024 Lymphocytes Auto (Unsp spec) [#/Vol] 2.11 10*3/uL 0.83-4.51 [facility] Absolute neutrophil countOrd ered By: Amadou Cobos on 12-22-2024 Neutrophils (Bld) [#/Vol] 5.6 10*3/uL 2.0-7.7 [facility] Automated lymphocyte count a s percentage of total leukocytesOrdered By: Amadou Cobos on 12-22-2024 Lymphocytes/100 WBC Auto (Unsp spec) 24.6 % 19-41 [facility] Basic Metabolic Profile (BMP )on 12-22-2024 BUN/CRE 14.2 RATIO Normal 10-20 [facility] Comment on above: Performed By: #### L 700.6800 #### [facility] Laboratory [address] [place], [address] CA,Total 8.8 mg/dL Normal 8.5-10.1 [facility] Comment on above: Performed By: #### L 700.6800 #### [facility] Laboratory [address] [place], [address] Chloride [Moles/Vol] 103 mmol/L Normal 98-107 [facility] Comment on above: Performed By: #### L 700.6800 #### [facility] Laboratory [address] [place], [address] CO2 [Moles/Vol] 23.0 mmol/L Normal 21.0-32.0 [facility] Comment on above: Performed By: #### L 700.6800 #### [facility] Laboratory [address] [place], [address] Creatinine [Mass/Vol] 0.84 mg/dL Normal 0.55-1.02 [facility] Comment on above: Result Comment: The validity of the calculated GFR GFRAA in patients over 70 years has not been determined. Clinical correlation is essential. Performed By: #### L 700.6800 #### [facility] Laboratory [address] [place], [address] ECRCL 82.26 ml/min Normal [facility] Comment on above: Performed By: #### L 700.6800 #### [facility] Laboratory [address] [place], [address] EST GFR - AA 100 mL/min Normal >60 [facility] Comment on above: Result Comment: Afri can [place] GFR Calc Performed By: #### L 700.6800 #### [facility] Laboratory [address] [place], [address] GAP 10 Normal 5-15 [facility] Comment on above: Performed By: #### L 700.6800 #### [facility] Laboratory [address] [place], [address] GFR/1.73 sq M.predicted among non-blacks MDRD (S/P/Bld) [Vol rate/Area] 83 mL/min/{1.73_m2} Normal >60 [facility] Comment on above: Result Comment: Non- GFR Calc Performed By: #### L 700.6800 #### [facility] Laboratory [address] [place], [address] Glucose [Mass/Vol] 97 mg/dL Normal 74-106 [facility] Comment on above: Performed By: #### L 700.6800 #### [facility] Laboratory [address] [place], [address] Potassium [Moles/Vol] 3.4 mmol/L Low 3.5-5.1 [facility] Comment on above: Performed By: #### L 700.6800 #### [facility] Laboratory [address] [place], [address] Sodium [Moles/Vol] 136 mmol/L Normal 136-145 [facility] Comment on above: Performed By: #### L 700.6800 #### [facility] Laboratory [address] [place], [address] Urea nitrogen [Mass/Vol] 12 mg/dL Normal 7-18 [facility] Comment on above: Performed By: #### L 700.6800 #### [facility] Laboratory [address] [place], [address] Basophil percentageOrdered B y: Amadou Cobos on 12-22-2024 Basophils/100 WBC (Bld) 0.4 % 0-1 [facility] Blood urea nitrogen (BUN)/cr eatinine ratioOrdered By: Amadou Cobos on 12-22-2024 Urea nitrogen/Creatinine [Mass ratio] 14.2 mg/mg 10-20 [facility] CBC W/Diff, Automatedon 12-11 Absolute Lymph 2.11 X10 3/uL Normal 0.83-4.51 [facility] Comment on above: Performed By: #### L 700.6800 #### [facility] Laboratory [address] [place], [address] Absolute Neut 5.6 X10 3/uL Normal 2.0-7.7 [facility] Comment on above: Performed By: #### L 700.6800 #### [facility] Laboratory [address] [place], [address] Basophils/100 WBC (Bld) 0.4 % Normal 0-1 [facility] Comment on above: Performed By: #### L 700.6800 #### [facility] Laboratory [address] [place], [address] Eosinophils/100 WBC (Bld) 1.3 % Normal 0-5 [facility] Comment on above: Performed By: #### L 700.6800 #### [facility] Laboratory [address] [place], [address] Erythrocyte distribution width (RBC) [Ratio] 13.1 % Normal 11.6-14.6 [facility] Comment on above: Performed By: #### L 700.6800 #### [facility] Laboratory [address] [place], [address] Hematocrit (Bld) [Volume fraction] 40.6 % Normal 37-47 [facility] Comment on above: Performed By: #### L 700.6800 #### [facility] Laboratory [address] [place], [address] Hemoglobin (Bld) [Mass/Vol] 14.0 g/dL Normal 12.0-15.0 [facility] Comment on above: Performed By: #### L 700.6800 #### [facility] Laboratory [address] [place], [address] IG% 0.400 Normal 0.0-0.9 [facility] Comment on above: Result Comment: IG% - Immature Granulocytes (promyelocytes, myelocytes and metamyelocytes) > 1% indicates that a LEFT SHIFT is Present. Performed By: #### L 700.6800 #### [facility] Laboratory [address] [place], [address] Lymphocytes/100 WBC (Bld) 24.6 % Normal 19-41 [facility] Comment on above: Performed By: #### L 700.6800 #### [facility] Laboratory [address] [place], [address] MCH (RBC) [Entitic mass] 31.5 pg Normal 27.0-32.0 [facility] Comment on above: Performed By: #### L 700.6800 #### [facility] Laboratory [address] [place], [address] MCHC (RBC) [Mass/Vol] 34.5 g/dL Normal 32-36 [facility] Comment on above: Performed By: #### L 700.6800 #### [facility] Laboratory [address] [place], [address] MCV (RBC) [Entitic vol] 91.4 fL Normal 81-99 [facility] Comment on above: Performed By: #### L 700.6800 #### [facility] Laboratory [address] [place], [address] Monocytes/100 WBC (Bld) 8.4 % Normal 0-10 [facility] Comment on above: Performed By: #### L 700.6800 #### [facility] [address] [place], [address] Neutrophils/100 WBC (Bld) 64.9 % Normal 47-70 [facility] [facility] Comment on above: Performed By: #### L 700.6800 #### [facility] [address] [place], [address] Nucleated RBC (Bld) [#/Vol] 0 10*3/uL Normal 0-5 [facility] Comment on above: Performed By: #### L 700.6800 #### [facility] [address] [place], [address] Platelet mean volume (Bld) [Entitic vol] 9.1 fL Normal 6.2-12.0 [facility] Comment on above: Performed By: #### L 700.6800 #### [facility] [address] [place], [address] Platelets (Bld) [#/Vol] 272 10*3/uL Normal 150-450 [facility] Comment on above: Performed By: #### L 700.6800 #### [facility] [address] [place], [address] RBC (Bld) [#/Vol] 4.44 10*6/uL Normal 4.2-5.4 [facility] Comment on above: Performed By: #### L 700.6800 #### [facility] [address] [place], [address] RDW SD 44.1 fl High 35.1-43.9 [facility] Comment on above: Performed By: #### L 700.6800 #### [facility] [address] [place], [address] WBC (Bld) [#/Vol] 8.6 10*3/uL Normal 4.4-11.0 [facility] Comment on above: Performed By: #### L 700.6800 #### [facility] [address] [place], [address] Carbon dioxide measurementOr dered By: Amadou Cobos on 12-22-2024 CO2 [Moles/Vol] 23.0 mmol/L 21.0-32.0 [facility] Chest 1 View (Portable)on Chest 1 View (Portable) [facility] Imaging Services [address] [place] [address] Chest 1 View (Portable) MR#: [id number] Acct: [id number] Name: COREY PERLA Rep #: [id number] : 1990 F 34 From: Richelle Lobo nd, MD PCP: Care Physician,No Primary Status: REG ER Study: Chest 1 View (Portable) Date of Exam: 12/22/24 Exam# [id number] Ordering Dr: Amadou Cobos DO PROCEDURE: CHEST 1 VIEW (PORTABLE) REASON FOR EXAM: 34-year-old female, cough, shortness of breath, chest pain, fevers, nausea and diarrhea x5 days. TECHNIQUE: Frontal view of the chest. COMPARISON: Chest radiograph 08/10/2024. FINDINGS: The heart size is normal. The lungs are clear. The bones are unremarkable. RAD/Chest 1 View (Portable) IMPRESSION: NEGATIVE CHEST. Reading Location: [facility] CC: Dr. Amadou Cobos DO; No Primary Care Physician Survey Instrument Operator: Signed Normal [facility] Chloride measurementOrdered By: Amadou Cobos on 12-22-2024 Chloride [Moles/Vol] 103 mmol/L 98-107 [facility] Emergency Department Summary on 12-22-2024 Emergency Department Summary [facility] Medical Records Department [address] [place] [address] Emergency Department Summary 12/22/24 MR#: [id number] Acct: [id number] Name: COREY PERLA Rep #: [id number] : 1990 34 From: Amadou Cobos DO [...] smoker History obtained from others: Consults: none [facility] Narrative: Patient was initially febrile otherwise hemodynamically stable saturating well on room air. Exam with coarse breath sounds bilateral wheezing. I considered the following differential diagnosis: COVID, RSV, flu, pneumonia, ACS, arrhythmia, anemia I obtained a broad lab and imaging workup to further elucidate t (more content not included)... Normal [facility] Eosinophil percentageOrdered By: Amadou Cobos on 12-22-2024 Eosinophils/100 WBC (Bld) 1.3 % 0-5 [facility] Erythrocyte distribution wid th ratioOrdered By: Amadou Cobos on 12-22-2024 Erythrocyte distribution width (RBC) [Ratio] 13.1 % 11.6-14.6 [facility] Erythrocyte distribution wid th standard deviationOrdered By: Amadou Cobos on 12-22-2024 Erythrocyte distribution width (RBC) [Ratio] 44.1 fl High 35.1-43.9 [facility] Glomerular filtration rate ( GFR) estimationOrdered By: Amadou Cobos on 12-22-2024 GFR/1.73 sq M.predicted among non-blacks MDRD (S/P/Bld) [Vol rate/Area] 83 mL/min/{1.73_m2} >60 [facility] Comment on above: Non- GFR Calc Glucose measurementOrdered B y: Amadou Cobos on 12-22-2024 Glucose [Mass/Vol] 97 mg/dL 74-106 [facility] Hematocrit Auto (Bld) [Volum e fraction]Ordered By: Amadou Cobos on 12-22-2024 Hematocrit (Bld) [Volume fraction] 40.6 % 37-47 [facility] Hemoglobin measurementOrdere d By: Amadou Cobos on 12-22-2024 Hemoglobin (Bld) [Mass/Vol] 14.0 g/dL 12.0-15.0 [facility] Immature granulocytes/100 WB C Auto (Bld)Ordered By: Amadou Cobos on 12-22-2024 Immature granulocytes/100 WBC (Bld) 0.400 % 0.0-0.9 [facility] Comment on above: IG% - Immature Granu locytes (promyelocytes, myelocytes and metamyelocytes) > 1% indicates that a LEFT SHIFT is Present. Influenza virus A and B and SARS-CoV-2 (COVID-19) and Respiratory syncytial virus RNAOrdered By: Amadou Cobos on 12-22-2024 SARS-CoV-2 (COVID-19) RNA SHIVA+probe Ql (Unsp spec) [facility] L501.4020on 12-22-2024 TROPONIN-I HS < 3 Low 3.0-54.0 [facility] Comment on above: Result Comment: Talisha fuentes Note: New Test Units and Gender Specific Reference Ranges. For more information see Policy Stat Procedure [place] High Sensitivity Troponin (TNIH) and attachments. Performed By: #### L 501.4020 #### [facility] [address] [place], [address] L501.5425on 12-22-2024 TROPONIN-I HS 4 pg/mL Normal 3.0-54.0 [facility] Comment on above: Order Comment: 1Y Result Comment: Talisha fuentes Note: New Test Units and Gender Specific Reference Ranges. For more information see Policy Stat Procedure [place] High Sensitivity Troponin (TNIH) and attachments. Performed By: #### L 700.6800 #### [facility] [address] [place], [address] M100.678on 12-22-2024 M100.678 SARS-CoV-2 (COVID 19 ) Negative INFLUENZA A Negative INFLUENZA B Negative RSV PCR Negative Normal [facility] Comment on above: Performed By: #### L 400.0001 #### [facility] [address] [place], [address] MCV (mean corpuscular volume ) determinationOrdered By: Amadou Cobos on 12-22-2024 MCV (RBC) [Entitic vol] 91.4 fL 81-99 [facility] Mean corpuscular hemoglobin (MCH) determinationOrdered By: Amadou Cobos on 12-22-2024 MCH (RBC) [Entitic mass] 31.5 pg 27.0-32.0 [facility] Mean corpuscular hemoglobin concentration (MCHC) determinationOrdered By: Amadou Cobos on 12-22-2024 MCHC (RBC) [Mass/Vol] 34.5 g/dL 32-36 [facility] Mean platelet volume determi nationOrdered By: Amadou Cobos on 12-22-2024 Platelet mean volume (Bld) [Entitic vol] 9.1 fL 6.2-12.0 [facility] Monocyte percentageOrdered B y: Amadou Cobos on 12-22-2024 Monocytes/100 WBC (Bld) 8.4 % 0-10 [facility] Neutrophil percentageOrdered By: Amadou Cobos on 12-22-2024 Neutrophils/100 WBC (Bld) 64.9 % 47-70 [facility] Nucleated red blood cell per centageOrdered By: Amadou Cobos on 12-22-2024 Nucleated RBC/100 WBC (Bld) [Ratio] 0 % 0-5 [facility] Platelet countOrdered By: Zen Cobos on 12-22-2024 Platelets (Bld) [#/Vol] 272 10*3/uL 150-450 [facility] Potassium measurementOrdered By: Amadou Cobos on 12-22-2024 Potassium [Moles/Vol] 3.4 mmol/L Low 3.5-5.1 [facility] RBC Auto (Bld) [#/Vol]Ordere d By: Amadou Cobos on 12-22-2024 RBC (Bld) [#/Vol] 4.44 10*6/uL 4.2-5.4 [facility] Serum anion gap measurementO rdered By: Amadou Cobos on 12-22-2024 Anion gap [Moles/Vol] 10 mmol/L 5-15 [facility] Serum or plasma calcium haydee urement (mass/volume)Ordered By: Aamdou Cobos on 12-22-2024 Calcium [Mass/Vol] 8.8 mg/dL 8.5-10.1 [facility] Serum or plasma creatinine m easurement (mass/volume)Ordered By: Amadou Cobos on 12-22-2024 Creatinine [Mass/Vol] 0.84 mg/dL 0.55-1.02 [facility] Comment on above: The validity of the calculated GFR & GFRAA in patients over 70 years has not been determined. Clinical correlation is essential. Serum or plasma urea nitroge n measurement (mass/volume)Ordered By: Amadou Cobos on 12-22-2024 Urea nitrogen [Mass/Vol] 12 mg/dL 7-18 [facility] Sodium levelOrdered By: Corky Cobos on 12-22-2024 Sodium [Moles/Vol] 136 mmol/L 136-145 [facility] Troponin IOrdered By: Amadou Cobos on 12-22-2024 Troponin I < 3 pg/mL Low 3.0-54.0 [facility] Comment on above: Please Note: New Sully t Units and Gender Specific Reference Ranges. For more information see Policy Stat Procedure [place] High Sensitivity Troponin (TNIH) and attachments. White blood cell (WBC) count Ordered By: Amadou Cobos on 12-22-2024 WBC (Bld) [#/Vol] 8.6 10*3/uL 4.4-11.0 [facility] Abdomen/Pelvis W IV Cont ONL Yon 12-04-2024 Abdomen/Pelvis W IV Cont ONLY [facility] Imaging Services [address], [place] [address] Abdomen/Pelvis W IV Cont ONLY MR#: [id number] Acct: [id number] Name: COREY PERLA Rep #: [id number] : 1990 F 34 From: Jaylen barbosa DO PCP: Care Physician,No Primary Status: REG ER Study: Abdomen/Pelvis W IV Cont ONLY Date of Exam: Exam# [id number] Ordering Dr: Amadou Cobos DO [id number] EXAM: CT ABDOMEN AND PELVIS WITH INTRAVENOUS [...] at 22:15 EST , CC: Dr. Amadou Cobos DO; No Primary Care Physician Survey Instrument Operator: Signed Normal [facility] Basic Metabolic Profile (BMP )on 12-04-2024 BUN/CRE 14.8 RATIO Normal 10-20 [facility] Comment on above: Performed By: #### L 400.0001 #### [facility] [address] [place], [place], [id number] CA,Total 9.4 mg/dL Normal 8.5-10.1 [facility] Comment on above: Performed By: #### L 400.0001 #### [facility] [address] [place], [place], [id number] Chloride [Moles/Vol] 108 mmol/L High 98-107 [facility] Comment on above: Performed By: #### L 400.0001 #### [facility] [address] [place], [address] CO2 [Moles/Vol] 24.0 mmol/L Normal 21.0-32.0 [facility] Comment on above: Performed By: #### L 400.0001 #### [facility] [address] [place], [address] Creatinine [Mass/Vol] 0.94 mg/dL Normal 0.55-1.02 [facility] Comment on above: Result Comment: The validity of the calculated GFR GFRAA in patients over 70 years has not been determined. Clinical correlation is essential. Performed By: #### L 400.0001 #### [facility] [address] [place], [address] ECRCL 73.51 ml/min Normal [facility] Comment on above: Performed By: #### L 400.0001 #### [facility] [address] [place], [address] EST GFR - AA 88 mL/min Normal >60 [facility] Comment on above: Result Comment: Afri can [place] GFR Calc Performed By: #### L 400.0001 #### [facility] [address] [place], [address] GAP 6 Normal 5-15 [facility] Comment on above: Performed By: #### L 400.0001 #### [facility] [address] [place], [address] GFR/1.73 sq M.predicted among non-blacks MDRD (S/P/Bld) [Vol rate/Area] 73 mL/min/{1.73_m2} Normal >60 [facility] Comment on above: Result Comment: Non- GFR Calc Performed By: #### L 400.0001 #### [facility] [address] [place], [address] Glucose [Mass/Vol] 103 mg/dL Normal 74-106 [facility] Comment on above: Result Comment: Fast ing Glucose result from 100 to 125 mg/dL suggests IMPAIRED HOMEOSTASIS per A.D.A. criteria. Performed By: #### L 400.0001 #### [facility] [address] [place], [address] Potassium [Moles/Vol] 3.6 mmol/L Normal 3.5-5.1 [facility] Comment on above: Performed By: #### L 400.0001 #### [facility] [address] [place], [address] Sodium [Moles/Vol] 138 mmol/L Normal 136-145 [facility] Comment on above: Performed By: #### L 400.0001 #### [facility] [address] [place], [address] Urea nitrogen [Mass/Vol] 14 mg/dL Normal 7-18 [facility] Comment on above: Performed By: #### L 400.0001 #### [facility] [address] [place], [address] CBC W/Diff, Automatedon -2 -2024 Absolute Lymph 1.68 X10 3/uL Normal 0.83-4.51 [facility] Comment on above: Performed By: #### L 500.3400, L501.2450, L100.0100, L500.2500 #### [facility] [address] [place], [address] Absolute Neut 11.3 X10 3/uL High 2.0-7.7 [facility] Comment on above: Performed By: #### L 500.3400, L501.2450, L100.0100, L500.2500 #### [facility] [address] [place], [address] Basophils/100 WBC (Bld) 0.5 % Normal 0-1 [facility] Comment on above: Performed By: #### L 500.3400, L501.2450, L100.0100, L500.2500 #### [facility] [address] [place], [address] Eosinophils/100 WBC (Bld) 3.2 % Normal 0-5 [facility] Comment on above: Performed By: #### L 500.3400, L501.2450, L100.0100, L500.2500 #### [facility] [address] [place], [address] Erythrocyte distribution width (RBC) [Ratio] 13.0 % Normal 11.6-14.6 [facility] Comment on above: Performed By: #### L 500.3400, L501.2450, L100.0100, L500.2500 #### [facility] [address] [place], [address] Hematocrit (Bld) [Volume fraction] 42.3 % Normal 37-47 [facility] Comment on above: Performed By: #### L 500.3400, L501.2450, L100.0100, L500.2500 #### [facility] [address] [place], [address] Hemoglobin (Bld) [Mass/Vol] 14.6 g/dL Normal 12.0-15.0 [facility] Comment on above: Performed By: #### L 500.3400, L501.2450, L100.0100, L500.2500 #### [facility] [address] [place], [address] IG% 0.400 Normal 0.0-0.9 [facility] Comment on above: Result Comment: IG% - Immature Granulocytes (promyelocytes, myelocytes and metamyelocytes) > 1% indicates that a LEFT SHIFT is Present. Performed By: #### L 500.3400, L501.2450, L100.0100, L500.2500 #### [facility] [address] [place], [address] Lymphocytes/100 WBC (Bld) 11.8 % Low 19-41 [facility] Comment on above: Performed By: #### L 500.3400, L501.2450, L100.0100, L500.2500 #### [facility] [address] [place], [address] MCH (RBC) [Entitic mass] 31.6 pg Normal 27.0-32.0 [facility] Comment on above: Performed By: #### L 500.3400, L501.2450, L100.0100, L500.2500 #### [facility] [address] [place], [address] MCHC (RBC) [Mass/Vol] 34.5 g/dL Normal 32-36 [facility] Comment on above: Performed By: #### L 500.3400, L501.2450, L100.0100, L500.2500 #### [facility] [address] [place], [address] MCV (RBC) [Entitic vol] 91.6 fL Normal 81-99 [facility] Comment on above: Performed By: #### L 500.3400, L501.2450, L100.0100, L500.2500 #### [facility] [address] [place], [address] Monocytes/100 WBC (Bld) 4.6 % Normal 0-10 [facility] Comment on above: Performed By: #### L 500.3400, L501.2450, L100.0100, L500.2500 #### [facility] [address] [place], [address] Neutrophils/100 WBC (Bld) 79.5 % High 47-70 [facility] Comment on above: Performed By: #### L 500.3400, L501.2450, L100.0100, L500.2500 #### [facility] [address] [place], [address] Nucleated RBC (Bld) [#/Vol] 0 10*3/uL Normal 0-5 [facility] Comment on above: Performed By: #### L 500.3400, L501.2450, L100.0100, L500.2500 #### [facility] [address] [place], [address] Platelet mean volume (Bld) [Entitic vol] 8.7 fL Normal 6.2-12.0 [facility] Comment on above: Performed By: #### L 500.3400, L501.2450, L100.0100, L500.2500 #### [facility] [address] [place], [address] Platelets (Bld) [#/Vol] 382 10*3/uL Normal 150-450 [facility] Comment on above: Performed By: #### L 500.3400, L501.2450, L100.0100, L500.2500 #### [facility] [address] [place], [address] RBC (Bld) [#/Vol] 4.62 10*6/uL Normal 4.2-5.4 [facility] Comment on above: Performed By: #### L 500.3400, L501.2450, L100.0100, L500.2500 #### [facility] [address] [place], [address] RDW SD 43.4 fl Normal 35.1-43.9 [facility] Comment on above: Performed By: #### L 500.3400, L501.2450, L100.0100, L500.2500 #### [facility] [address] [place], [address] WBC (Bld) [#/Vol] 14.3 10*3/uL High 4.4-11.0 [facility] Comment on above: Performed By: #### L 500.3400, L501.2450, L100.0100, L500.2500 #### [facility] [address] [place], [address] Emergency Department Summary on 12-04-2024 Emergency Department Summary [facility] Medical Records Department [address] [place] [address] Emergency Department Summary 12/04/24 MR#: [id number] Acct: [id number] Name: COREY PERLA Rep #: [id number] : 1990 34 From: Amadou Cobos DO [...] reviewed, Vital signs reviewed Constitutional: please see [facility] HENT: MMM Eyes: Pupils equal round and [...] smoking History obtained from others: Consults: none. [facility] Narrative: Patient was initially hemodynamically stable, afebrile [...] she rece (more content not included)... Normal [facility] Lipaseon 12-04-2024 Lipase [Catalytic activity/Vol] 39 U/L Normal 13-75 [facility] Comment on above: Result Comment: Talisha fuentes note: LIPASE revised reference range effective 23. New Lipase methodology. Expected to produce lower values than the previous assay method. NEW Reference Range: 13 - 75 U/L Performed By: #### L 400.0001 #### [facility] [address] [place], [address] Liver Profileon 12-04-2024 Albumin [Mass/Vol] 4.0 g/dL Normal 3.2-5.0 [facility] Comment on above: Performed By: #### L 400.0001 #### [facility] [address] [place], [address] ALK P 132 U/L High 45-117 [facility] Comment on above: Performed By: #### L 400.0001 #### [facility] [address] [place], [address] ALT [Catalytic activity/Vol] 27 U/L Normal 13-56 [facility] Comment on above: Performed By: #### L 400.0001 #### [facility] [address] [place], [address] AST [Catalytic activity/Vol] 22 U/L Normal 15-37 [facility] Comment on above: Performed By: #### L 400.0001 #### [facility] [address] [place], [address] Bilirubin [Mass/Vol] 0.30 mg/dL Normal 0.20-1.00 [facility] Comment on above: Result Comment: For patients on eltrombopag therapy, use of Dimension [place] TBIL is not recommended. Performed By: #### L 400.0001 #### [facility] [address] [place], [address] Bilirubin.direct [Mass/Vol] 0.09 mg/dL Normal 0.00-0.30 [facility] Comment on above: Performed By: #### L 400.0001 #### [facility] [address] [place], [address] Globulin (S) [Mass/Vol] 3.7 g/dL Normal 2.2-4.2 [facility] Comment on above: Performed By: #### L 400.0001 #### [facility] [address] [place], [address] T PROT 7.7 g/dL Normal 6.4-8.2 [facility] Comment on above: Performed By: #### L 400.0001 #### [facility] [address] [place], [address] Urinalysis, Completeon 12-04 EPI,SQUAMOUS 0-5 SEEN Normal 5-10 [facility] Comment on above: Order Comment: CLEAN CATCH Performed By: #### L 400.0001 #### [facility] [address] [place], [address] WBC 0-5 SEEN Normal 0-5 [facility] Comment on above: Order Comment: CLEAN CATCH Performed By: #### L 400.0001 #### [facility] [address] [place], [address] BACTERIA 0 SEEN Normal None Seen [facility] Comment on above: Order Comment: CLEAN CATCH Performed By: #### L 400.0001 #### [facility] [address] [place], [address] Mucus Ql (Urine sed) 0 SEEN Normal [facility] Comment on above: Order Comment: CLEAN CATCH Performed By: #### L 400.0001 #### [facility] [address] [place], [address] RBC 0 SEEN Normal 0-5 [facility] Comment on above: Order Comment: CLEAN CATCH Performed By: #### L 400.0001 #### [facility] [address] [place], [address] Chest PA and Lateralon 08-10 Chest PA and Lateral [facility] Imaging Services [address] [place] [address] Chest PA and Lateral MR#: [id number] Acct: [id number] Name: COREY PERLA Rep #: [id number] : 1990 F 33 From: Maxi daniel MD PCP: Care Physician,No Primary Status: REG ER Study: Chest PA and Lateral Date of Exam: 08/10/24 Exam# [id number] Ordering Dr: Ranulfo Finley [place] [id number] STUDY: X-RAY CHEST REASON FOR EXAM: Female, [...] Ranulfo Finley MD; No Primary Care Physician Survey Instrument Operator: Signed Normal [facility] Emergency Department Summary on 08-10-2024 Emergency Department Summary [facility] Medical Records Department [address] [place] [address] Emergency Department Summary 08/10/24 MR#: [id number] Acct: [id number] Name: COREY PERLA Rep #: [id number] : 1990 33 From: Ranulfo Finley MD [...] did complai (more content not included)... Normal [facility] M100.678on 08-10-2024 M100.678 Copy of report sent to Infection Control Printer [id number] 08/10/24 0944 VSICK. SARS-CoV-2 (COVID 19) A Positive A INFLUENZA A Negative INFLUENZA B Negative RSV PCR Negative SARS-CoV-2 (COVID 19 PCR) Normal [facility] Comment on above: Performed By: #### M 100.678 #### [facility] Laboratory [facility] [place], [address] [facility] 04-03-2024 CNPN Telephone (GYNML) COREY PERLA ([id number]) 1990 F Date Time Provider Department 04/03/24 BRANDAN HOLLIS [facility] During your visit today, we recorded the following information about you: Brandan Hollis APRN.SENIOR INSIGHT MANAGER INTERNATIONAL 04/03/2024 8:48 AM Signed had previously discussed HPV vaccination series. Can you please see if patient plans to get here at [place] versus another office? Thanks so much Allergies [...] 6 hours as needed for Pain. - Jzcdkgqs-Vo-Kot-Fe-FA ( VITAMIN) tab Take 1 tablet by mouth once daily. Problem List As Of Date 04/03/2024 Noted Resolved UTI (urinary tract infection) [N39.0] 03/31/2019 Encounter Status:Closed by BRANDAN HOLLIS on 04/22/24 [facility] CNOVSPon 03-25-2024 CNOVSP Visit (SP) Office (GYNML) COREY PERLA ([id number]) 1990 F Date Time Provider Department 03/25/24 11:45 AM [facility] During your visit today, we recorded the following information about you: Temperature Pulse Blood pressure Weight 98 degrees 71/minute 108/69 54 kg Chang Thorpe MD 04/02/2024 6:41 AM Signed DATE OF SERVICE: 03/25/2024 PROBLEM: Coreyveronica Perla presents for CT scan review. HPI: Ms. Perla is a 33 year old G0 female who has a past medical history of Kidney stone and Pyelonephritis. She had multiple abnormal pap smears and positive HPV. She underwent a hysteroscopy, DANSC, biopsy of the cervix to include ECC [...] and would like to re-establish care with PARK ACTIVITIES COORDINATOR/ONC. Last office visit: 11/27/23 IMAGING: PET SCAN- [...] pap: 11/27/23 in process SUBJECTIVE/INTERVAL HISTORY: Corey Machuca Babs is doing well. No new complaints since [...] with Dr Fernando De La Rosa at [facility] in [place] on 12/17/2022 with tumor size measuring 4.8 cm, positive LVSI, deep 1/3 invasion, negative margins, negative parametrium and negative nodes on final pathology. She was treated with adjuvant concurrent pelvic radiation with radiosensitizing cisplatin, completed on 04/02/2023. CT scans reviewed today - KATHI (more content not included)... [facility] 03-25-2024 [facility] Telephone (IRINAPOB) RAJICOREY MI ([id number]) 1990 F Date Time Provider Department 03/25/24 KIMBERLI NOONAN During your visit today, we recorded the following information about you: Rufina Fowler 03/25/2024 2:26 PM Signed LMTCO and [...] 6 hours as needed for Pain. - Scxwttvr-Nx-Mhp-Fe-FA ( VITAMIN) tab Take 1 tablet by mouth once daily. Problem List As Of Date 03/25/2024 Noted Resolved UTI (urinary tract infection) [N39.0] 03/31/2019 Encounter Status:Closed by RUFINA FOWLER on 03/25/24 Normal [facility] CT Abdomen and Pelvis W cont rast Jose 03-22-2024 IMPRESSION: STABLE EXAM. NO METASTATIC DISEASE IN THE ABDOMEN OR PELVIS. Survey Instrument Operator: PSCB Transcribe Date/Time: Mar 22 2024 10:04A Dictated by : ISABELA HUYNH DO This examination was interpreted and the report reviewed and electronically signed by: ISABELA HUYNH DO on Mar 22 2024 10:53AM [facility] DIVISION OF RADIOLOGY * * *Final Report* * * DATE OF EXAM: Mar 22 2024 9:53AM [facility] 0530 - CT ABD/PEL W IVCON / [...] and would like to re-establish care with PARK ACTIVITIES COORDINATOR/ONC. TECHNIQUE: CT of the abdomen and pelvis [...] No additional findings. DIVISION OF RADIOLOGY Provider, [facility] - 03/22/2024 * * *Final Report* * * DATE OF EXAM: Mar 22 2024 9:53AM [facility] 0530 - CT ABD/PEL W IVCON / [...] and would like to re-establish care with PARK ACTIVITIES COORDINATOR/ONC. TECHNIQUE: CT of the abdomen and pelvis [...] METASTATIC DISEASE IN THE ABDOMEN OR PELVIS. Survey Instrument Operator: PSCB Transcribe Date/Time: Mar 22 2024 10:04A Dictated by : ISABELA HUYNH DO This examination was interpreted and the report reviewed and electronically signed by: ISABELA HUYNH DO on Mar 22 2024 10:53AM EST [facility] Radiology Study observation (narrative) [facility] CT Abdomen and Pelvis W cont rast IVOrdered By: Ccf Provider on [facility]-2024 [facility] Letter Text Normal [facility] CNCOon 12-19-2023 [facility] Telephone (GYNML) COREY PERLA ([id number]) 1990 F Date Time Provider Department 11/28/23 AYLEEN STARKEY GYNML During your visit today, we recorded the following information about you: Ayleen Starkey APRN.CNP 11/28/2023 4:56 PM Signed I called and spoke to Corey to let her know that her recent swab was positive for BV. Below script sent in for treatment (patient preferred po vs vaginal gel). Encouraged a call to the office with any questions or concerns otherwise follow up as scheduled. Ayleen Starkey APRN.CNP The following approved medication requests have been transmitted electronically. Requested Prescriptions Signed Prescriptions Disp Refills metroNIDAZOLE (FLAGYL) 500 mg tablet 14 tablet 0 Sig: Take 1 tablet by mouth two times a day for 7 days. Do not drink alcohol while taking this medication. Authorizing Provider: AYLEEN STARKEY APRN.CNP Allergies As of Date: 11/28/2023 (No Known Allergies) Date Reviewed: 11/27/2023 Reviewed by: Brenda Lanier, RN - Fully Assessed Reason for Visit: [...] 6 hours as needed for Pain. - Bhqpmzun-Xq-Qxz-Fe-FA ( VITAMIN) tab Take 1 tablet by [...] while taking this medication. Encounter Status:Closed by AYLEEN STARKEY on 11/28/23 Normal [facility] BACTERIAL VAGINOSIS NAATon 0 11-27-2023 Lactobacillus crispatus+gasseri+filipe enii + Gardnerella vaginalis + Atopobium vaginae rRNA SHIVA+probe Ql (Vag fld) Positive Abnormal Negative for bacterial vaginosis [facility] Comment on above: Order Comment: Speci men Type: SWABOrdering Facility: [facility] Address: [address] [place] [address] Performed By: #### B VAMP, CVTV ####[facility] LABCLIA [id number] [facility] [place] [address] [place] YOSELIN/TRICHOMONAS NAATon 0 11-27-2023 C. glabrata RNA SHIVA+probe Ql (Vag fld) Negative Normal Negative for Yoselin glabrata [facility] Comment on above: Order Comment: Speci men Type: SWABOrdering Facility: [facility] Address: [address] [place] [address] Performed By: #### B VAMP, CVTV ####[facility] LABCLIA [id number] [address] [place] Yoselin sp DNA SHIVA+probe Ql (Vag fld) Negative Normal Negative for Yoselin species [facility] Comment on above: Order Comment: Speci men Type: SWABOrdering Facility: [facility] Address: [address] [place] [address] Performed By: #### B VAMP, CVTV ####[facility] LABCLIA [id number] [address] [place] T. vaginalis DNA SHIVA+probe Ql (Unsp spec) Negative Normal Negative for Trichomonas vaginalis by amplification [facility] Comment on above: Order Comment: Speci men Type: SWABOrdering Facility: [facility] Address: [address] [place] [address] Performed By: #### B VAMP, CVTV ####[facility] LABCLIA [id number] [address] [place] CNOVSPon 11-27-2023 CNOVSP Visit (SP) Office (GYNML) COREY PERLA ([id number]) 1990 F Date Time Provider Department 11/27/23 9:00 AM CHANG THORPE GYNML During your visit today, [...] and would like to re-establish care with PARK ACTIVITIES COORDINATOR/ONC. Patient reports that she presented to Dr Fernando De La Rosa at [facility] in [place] in Sep 2022 for evaluation of her [...] lower extremity edema, or palpitations. No recent MT (within 6 months), cardiac stent, cardiac surgery, gangrene, or PVD. No history of hypertension. BREAST: No breast lumps, skin changes, nipple discharge, or adenopathy. GI: Reports abdominal pain, decreased appetite and painful bowel movements. No prior history of esophageal varicies or ascites. Patient denies drinking >2 alcoholic beverages a day. PARK ACTIVITIES COORDINATOR: No vaginal bleeding (more content not included)... Normal [facility] HPV W/GENOTYPE THIN PREPon 0 11-27-2023 HPV 16 Ag Ql (Unsp spec) Negative Normal Negative for HPV DNA high risk type 16 by PCR [facility] Comment on above: Order Comment: Speci men Type: FLUID SPECIMENOrdering Facility: [facility] Address: [address] [place] [address] Performed By: #### H PVHRT, [id number] ####[facility] LABCLIA [id number] [place] [address] [place] HPV 18 Ag Ql (Unsp spec) Negative Normal Negative for HPV DNA high risk type 18 by PCR [facility] Comment on above: Order Comment: Speci men Type: FLUID SPECIMENOrdering Facility: [facility] Address: [address] [place] [address] Performed By: #### H PVHRT, [id number] ####[facility] LABCLIA [id number] [place] [address] [place] HPV 31+33+35+39+45+51+52+5 6+58+59+66+68 DNA SHIVA+probe Ql (Cvx) Negative for HPV DNA high risk types: 31,33,35,39,45,51,52, 56,58,59,66,68 by PCR. Normal Negative for HPV DNA high risk types: 31,33,35,39,45, 51,52,56,58,59, 66,68 by PCR. [facility] Comment on above: Order Comment: Speci men Type: FLUID SPECIMENOrdering Facility: [facility] Address: [address] [place] [address] Performed By: #### H PVHRT, [id number] ####[facility] LABCLIA [id number] [place] [address] [place] PAP TESTon 11-27-2023 ADEQUACY Satisfactory for interpretation Normal [facility] Comment on above: Order Comment: Speci men Type: FLUID SPECIMENOrdering Facility: [facility] Address: [address] [place] [address] Performed By: #### H PVHRT, [id number] ####[facility] LABCLIA [id number] [place] [address] [place] CASE REPORT Normal [facility] Comment on above: Order Comment: Speci men Type: FLUID SPECIMENOrdering Facility: [facility] Address: [address] [place] [address] Result Comment: Gyne cologic Cytology Report Case: [id number] Authorizing Provider: Chang Thorpe MD Collected: 11/27/2023 09:53 AM Ordering Location: Gynecology Received: 11/28/2023 08:33 AM First Screen: Herrera Rivera Tech Pathologist: Rukhsana Copeland MD Specimen: Pap Test, ThinPrep, Vaginal Performed By: #### H PVHRT, [id number] ####[facility] LABCLIA [id number] [place] [address] [place] CLINICAL HISTORY, CYTOLOGY, PARK ACTIVITIES COORDINATOR History of Malignancy (Describe) [facility] Comment on above: Order Comment: Speci men Type: FLUID SPECIMENOrdering Facility: [facility] Address: [address] [place] [address] Result Comment: cerv ical Performed By: #### H PVHRT, [id number] ####[facility] LABCLIA [id number] [place] [address] [place] CYTOLOGY PAP OTHER INT Predominance of coccobacilli consistent with shift in vaginal laurita [facility] Comment on above: Order Comment: Speci men Type: FLUID SPECIMENOrdering Facility: [facility] Address: [address] [place] [address] Performed By: #### H PVHRT, [id number] ####[facility] LABCLIA [id number] [place] [address] [place] FINAL PERFORMING LAB Normal [facility] Comment on above: Order Comment: Speci men Type: FLUID SPECIMENOrdering Facility: [facility] Address: [address] [place] [address] Result Comment: Tech nical component, automotive lot attendant screening performed at [facility], [address] [place] [address] CLIA# [id number] Diagnostic interpretation performed at [facility], [address] [place], [place] [address] CLIA# [id number] Preconstruction Manager: Wilson Denise M.D. Performed By: #### H PVHRT, [id number] ####[facility] LABCLIA [id number] [address] [address] [place] HPV REFLEX Yes HPV Normal [facility] Comment on above: Order Comment: Speci men Type: FLUID SPECIMENOrdering Facility: [facility] Address: [address] [place] [address] Performed By: #### H PVHRT, [id number] ####[facility] LABCLIA [id number] [place] [address] [place] INTERPRETATION, CYTOLOGY, PARK ACTIVITIES COORDINATOR Abnormal [facility] Comment on above: Order Comment: Speci men Type: FLUID SPECIMENOrdering Facility: [facility] Address: [address] [place] [address] Result Comment: Low grade squamous intraepithelial lesion (LSIL). Performed By: #### H PVHRT, [id number] ####[facility] LABCLIA [id number] [place] [address] [place] LMP 11/10/2022 [facility] Comment on above: Order Comment: Speci men Type: FLUID SPECIMENOrdering Facility: [facility] Address: [address] [place] [address] Performed By: #### H PVHRT, [id number] ####[facility] LABCLIA [id number] [place] [id number] [place] PAP DISCLAIMER COMMENT The Pap Smear is a screening test for cervical cancer. False negative results occur with all screening tests, emphasizing the need for rescreening at recommended intervals, and clinical correlation. [facility] Comment on above: Order Comment: Speci men Type: FLUID SPECIMENOrdering Facility: [facility] Address: [address] [place] [address] Performed By: #### H PVHRT, [id number] ####[facility] LABCLIA [id number] [place] [address] [place] PAP GENERAL CATEGORIZATION Epithelial Cell Abnormality Normal [facility] Comment on above: Order Comment: Speci men Type: FLUID SPECIMENOrdering Facility: [facility] Address: [address] [place] [address] Performed By: #### H PVHRT, [id number] ####[facility] LABCLIA [id number] [address] [place] PAP PRESSED OR BLOWN GLASS WORKER COMMENT This specimen has been analyzed by the ThinPrep Imaging System, an automated imaging and review system, which assists the laboratory in evaluating cells on ThinPrep Pap tests. Following automated imaging, selected perez from every slide are reviewed by a automotive lot attendant. Normal [facility] Comment on above: Order Comment: Speci men Type: FLUID SPECIMENOrdering Facility: [facility] Address: [address] [place] [address] Performed By: #### H PVHRT, [id number] ####[facility] LABCLIA [id number] [address] [place] CNPBere 11-19-2023 CNPVeronica Telephone (GYNML) COREY PERLA ([id number]) 1990 F Date Time Provider Department 11/19/23 CHANG THORPE GYN During your visit today, we recorded the following information about you: Rosmery Rico 11/19/2023 12:42 PM Signed Spoke to [facility] path department. Confirmed that slides were there and faxed request for second read. Fax confirmation was scanned into epic. Allergies As of Date: 11/19/2023 (No Known Allergies) Date Reviewed: 04/01/2019 Reviewed by: Kimberli Amaral (Rn), RN - Fully Assessed Reason for Visit: PATHOLOGY SLIDE REQUEST [Other] Cmt: Spoke to [facility] path department. Confirmed that slides were there and faxed request for second read. Fax confirmation was scanned into Omnikles. Prescriptions as of 11/19/2023 - acetaminophen (TYLENOL) 325 mg tablet Take 650 mg by mouth every 6 hours as needed for Pain. - Gmfkcvak-Vr-Hfl-Fe-FA ( VITAMIN) tab Take 1 tablet by mouth once daily. Problem List As Of Date 11/19/2023 Noted Resolved UTI (urinary tract infection) [N39.0] 03/31/2019 Encounter Status:Closed by ROSMERY RICO on 11/19/23 [facility] CNPN Telephone (GYNML) COREY PERLA ([id number]) 1990 F Date Time Provider Department 11/19/23 EZIO TSAI [facility] During your visit today, we recorded the following information about you: Ezio Tsai RN 11/19/2023 10:54 AM Signed Spoke to patient for new patient information. Will update Epic as needed. Allergies As of Date: 11/19/2023 (No Known Allergies) Date Reviewed: 04/01/2019 Reviewed by: Kimberli Amaral (Rn), RN - Fully Assessed Reason for Visit: New Patient [172] Prescriptions as of 11/19/2023 - acetaminophen (TYLENOL) 325 mg tablet Take 650 mg by mouth every 6 hours as needed for Pain. - Mxwlowmc-Ig-Ymp-Fe-FA ( VITAMIN) tab Take 1 tablet by mouth once daily. Problem List As Of Date 11/19/2023 Noted Resolved UTI (urinary tract infection) [N39.0] 03/31/2019 Encounter Status:Closed by EZIO TSAI on 11/19/23 Normal [facility] C THROATon 08-29-2023 C THROAT [facility] Dept of Laboratory Services [address] [place] [address] [phone] Name: COREY PERLA : 1990 Admitting Provider: Gender Female Financial [phone] : Number: Bernabe PANIAGUA; Bed 10; 1 [...] PERLA Print 08/29/2023 13:52 EDT Date/Time: Normal [facility] Comment on above: Performed By: #### 5 [id number] ####[facility] Laboratory [id number] [place] [address] Medical Director: Edison Dasilva MD COVID-19 Molecular BREDon SARS-CoV-2 (COVID-19) RNA SHIVA+probe Ql (Unsp spec) Negative Normal [facility] Comment on above: Result Comment: This assay [...] Use Authorization and has been verified by [facility] Microbiology laboratory. This test is only authorized [...] sooner. This testing was performed in the [facility] laboratory located at [[place] [address]] Performed By: #### C [id number] #### [facility] Laboratory Services [address] [place] [address] Crankshaft Straightener: Edison Dasilva MD ED Adult Data - Texton 08-28 ED Adult Data - Text ED Adult Data Enter ed On: 08/28/2023 11:33 EDT Performed On: 08/28/2023 11:32 EDT by Valerie Altamirano Arrival Information Chief Complaint Onset : 08/28/2023 11:32 EDT Referral Source ED : Home [facility] Mode of Arrival : Car / Walk-In Valerie Altamirano - 08/28/2023 11:32 EDT Screening-General Meds Triage : Other Accept Blood Products if Necessary : Yes Immunizations Current : Yes Last Tetanus : Less than 5 years Valerie Altamirano - 08/28/2023 11:32 EDT Depression Screening Patient able to verbalize? : Yes Feeling Down, Depressed, Hopeless : Not at all Little Interest - Pleasure in Activities : Not at all Initial Depression Screen Score : 0 Depression Screening Score 0 : No IP Pt being evaluated or treated for BH conditions : No Valerie Altamirano - 08/28/2023 11:32 EDT Screening-Safety Abuse/Violence Concerns? : Patient denies Does the patient have a medically restricted extremity? : No Valerie Altamirano - 08/28/2023 11:32 EDT Problem List Problem List obtained from : Patient Valerie Altamirano - 08/28/2023 11:32 EDT (As Of: 08/28/2023 11:33:26 EDT) Problems(Active) Adenocarcinoma of cervix (SNOMED CT :784940048 ) Name of Problem: Adenocarcinoma of cervix ; Recorder: IDALMIS JIMENEZ; Confirmation: Confirmed ; Classification: Medical ; Code: [id number] ; Contributor System: [employer]Chart ; Last Updated: 11/28/2022 11:14 EST ; Life Cycle Date: 11/28/2022 ; Life Cycle Status: Active ; Responsible Provider: IDALMIS JIEMNEZ; Vocabulary: [facility] Cervical mass (SNOMED CT :483685501 ) Name of Problem: Cervical mass ; Recorder: IDALMIS JIMENEZ; Confirmation: Confirmed ; Classification: Medical ; Code: [id number] ; Contributor System: PowerChart ; Last Updated: 10/09/2022 14:49 EST ; Life Cycle Date: 10/09/2022 ; Life Cycle Status: Active ; Responsible Provider: IDALMIS JIMENEZ; Vocabulary: SNOMED CT High risk HPV infection (SNOMED CT :066063325 ) 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 ; Recorder: IDALMIS JIMENEZ; Confirmation: Confirmed ; Classification: Medical ; Code: [id number] ; Contributor System: PowerChart ; Last Updated: 10/09/2022 14:49 EST ; Life Cycle Date: 10/09/2022 ; Life Cycle Status: Active ; Responsible Provider: IDALMIS JIMENEZ; Vocabulary: SNOMED CT HPV in female (SNOMED CT :908862722 ) 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 ; Recorder: Karina Encinas RN; Confirmation: Confirmed ; Classification: Medical ; Code: [id number] ; Contributor System: PowerChart ; Last Updated: 2022 07:37 EST ; Life Cycle Date: 2022 ; Life Cycle Status: Active ; Vocabulary: SNOMED CT Diagnoses(Active) Sore throat - Adult Date: 08/28/2023 ; Diagnosis Type: Reason For Visit ; Confirmation: Confirmed ; Clinical Dx: Sore throat - Adult ; Classification: Medical ; Clinical Service: Non-Specified ; Code: PNED ; Probability: 0 ; Diagnosis Code: [id number] Procedure History ED Devices Present on Arrival [...] 0 Anesthesia Minutes: 0 ; Procedure Name: [place] teeth extraction ; Procedure Minutes: 0 Social History Does pt have any alcohol,drugs or tobacco : No Do you consume Alcohol : No Social History obtained from : Patient Valerie Altamirano - 08/28/2023 11:32 EDT Social History (As Of: 08/28/2023 11:33:26 EDT) Alcohol: Denies Alcohol Use (Last Updated: 10/09/2022 09:17:27 EST by Sudhakar Linn MA ) Tobacco: 10 or more cigarettes (1/2 pack or more)/day in last 30 days Tobacco Use:. (Last Updated: 11/22/2021 13:34:49 EST by Glory Dumont MA) Substance Abuse: Denies Substance Abuse (Last Updated: 10/31/2022 11:04:54 EST by Sanchez Henderson RN ) Sexual: Other contraceptive use: none. (Last Updated: 10/09/2022 09:17:36 EST by Sudhakar Linn MA) Infection Screening Travel outside US within past 30 days : No Exposure AND/OR close contact with a person under investigation or laboratory-confirmed COVID-19 individual within 14 days of symptom onset AND/OR any of the following: : No Do you live/work in a high risk situation (congregated living, hemodialysis, infusion clinic, long-term, assisted living, detention, homeless mcc, etc.)? : No Lynsey GUZMAN Valerie - 08/28/2023 11:32 EDT Normal [facility] ED Discharge Educationon ED Discharge Education Ear, [...] cup of warm water. ? Take an baap-vgo-mtdioac pain medicine, such as acetaminophen (Tylenol), ibuprofen (Advil, Motrin), or naproxen (Aleve). Read and follow all instructions on the label. ? Be careful when taking dazd-rij-fuwwrhj cold or flu medicines and Tylenol at [...] may help decrease throat pain. ? Use edou-ukm-rxdvhmp throat lozenges to soothe pain. Regular cough [...] Where can you learn more? Go to [email or web address].Ivaldi/patientEd Enter U420 in the search box to learn more about Sore Throat: Care Instructions. Current as of: July 18, 2021 Content Version: 13.3 ? [employer]. Care instructions adapted under license by your healthcare professional. If you have questions about a medical condition or this instruction, always ask your healthcare professional. [employer] disclaims any warranty or liability for your use of this information. Normal [facility] ED Emergency Severity Index Adult-Texton 08-28-2023 ED Emergency Severity Index Adult-Text ANDREA - Adult Entered On: 08/28/2023 11:30 EDT Performed On: 08/28/2023 11:30 EDT by Valerie Altamirano ANDREA DCP GENERIC CODE Visit Reason : SORE THROAT Tracking Triage Date/Time : 08/28/2023 11:30 EDT Tracking Reg Status : Requested Tracking Acuity : [id number] Tracking Group : Valerie Andrade - 08/28/2023 11:30 EDT Normal [facility] ED Nrsing Adlt Triage Sep Sc rning - Texton 08-28-2023 ED Nrsing Adlt Triage Sep Scrning - Text ED Nursing Adult Triage Sepsis Screening Tool Entered On: 08/28/2023 11:30 EDT Performed On: 08/28/2023 11:30 EDT by Valerie Altamirano Adult Sepsis Screening Sepsis Infection Screening ED : No Valerie Altamirano - 08/28/2023 11:30 EDT Normal [facility] ED Patient Summaryon 023 ED Patient Summary [facility] Emergency Department Discharge Instructions [address] [place] [address] (Patient Copy) Name: COREY PERLA : 1990 Allergies: No Known Allergies Diagnosis: Sore throat Visit Date: 08/28/2023 11:25:20 [facility]#: [id number] Current Date Time: 08/28/2023 12:23:00 Address: [address] [place] [address] Phone: [phone] Primary Care Provider: Name: NO FAMILY PHYSICIAN, 837 Phone: Emergency Department Care Providers: Primary Physician: ALEX MIMS DO Thank you for choosing [facility] for your emergency care. You are very important to us. Our goal is to demonstrate our high quality medical care, and provide you with a very good patient experience. You may receive a survey about our service. Please take the time to complete the survey and return it so we can continue to enhance our service. Thank you again for allowing the [facility] Emergency Department to care for your medical needs. If you have questions about your care or follow up information please contact us at [phone]. Follow-Up Instructions COREY PERLA has been given these follow-up instructions: With: Address: When: COURTNEY PALACIOS, Internal Medicine [address] [place] [phone] Business (1) Within 3 to 5 days [...] cup of warm water. ? Take an ndvp-qdn-dbqwwab pain medicine, such as acetaminophen (Tylenol), ibuprofen (Advil, Motrin), or naproxen (Aleve). Read and follow all instructions on the label. ? Be careful when taking rxhh-oqq-fekswtw cold or flu medicines and Tylenol at [...] may help decrease throat pain. ? Use whkp-gkm-fzqvjlo throat lozenges to soothe pain. Regular cough [...] Where can you learn more? Go to https://www.GOintegronet/patientEd Enter U420 in the search box to learn more about Sore Throat: Care Instructions. Current as of: July 18, 2021 Content Version: 13.3 ? [id number] [employer]. Care instructions adapted under license by your healthcare professional. If you have questions about a medical condition or this instruction, always ask your healthcare professional. [employer] disclaims any warranty or liability for your use of this information. BEFORE YOU LEAVE Set up your [facility] account! [employer] is a secure, online health management tool that connects you to portions of your hospital-based electronic medical record, allowing you to see test results, manage appointments, access discharge care instructions and much more. You can access [employer] from a computer, tablet or smartphone. Enrollment/r (more content not included)... 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 as directed on package labeling. Refills: 0. Unchanged acetaminophen-hydroco done (Freeport 5 mg-325 mg oral tablet)1 Tabs Oral [...] Diagnostic Results No qualifying data available. Normal [facility] ED Progress Noteon 3 ED Progress Note [...] PCP and all questions addressed. NAD. Normal [facility] ED Triage Adult-Texton 08-28 ED Triage Adult-Text ED Triage Entered O n: 08/28/2023 11:32 EDT Performed On: 08/28/2023 11:31 EDT by Valerie Altamirano Triage (As Of: 08/28/2023 11:32:26 EDT) Problems(Active) Adenocarcinoma of cervix (SNOMED CT :762707555 ) Name of Problem: Adenocarcinoma of cervix ; Recorder: IDALMIS JIMENEZ; Confirmation: Confirmed ; Classification: Medical ; Code: [id number] ; Contributor System: PowerChart ; Last Updated: 11/28/2022 11:14 EST ; Life Cycle Date: 11/28/2022 ; Life Cycle Status: Active ; Responsible Provider: IDALMIS JIMENEZ; Vocabulary: SNOMED CT Cervical mass (SNOMED CT :011768965 ) Name of Problem: Cervical mass ; Recorder: IDALMIS JIMENEZ; Confirmation: Confirmed ; Classification: Medical ; Code: [id number] ; Contributor System: PowerChart ; Last Updated: 10/09/2022 14:49 EST ; Life Cycle Date: 10/09/2022 ; Life Cycle Status: Active ; Responsible Provider: IDALMIS JIMENEZ; Vocabulary: SNOMED CT High risk HPV infection (SNOMED CT :636745585 ) 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 ; Recorder: IDALMIS JIMENEZ; Confirmation: Confirmed ; Classification: Medical ; Code: [id number] ; Contributor System: PowerChart ; Last Updated: 10/09/2022 14:49 EST ; Life Cycle Date: 10/09/2022 ; Life Cycle Status: Active ; Responsible Provider: IDALMIS JIMENEZ; Vocabulary: SNOMED CT HPV in female (SNOMED CT :578086532 ) 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 ; Recorder: Karina Encinas RN; Confirmation: Confirmed ; Classification: Medical ; Code: [id number] ; Contributor System: PowerChart ; Last Updated: 2022 07:37 EST ; Life Cycle Date: 2022 ; Life Cycle Status: Active ; Vocabulary: SNOMED CT Diagnoses(Active) Sore throat - Adult Date: 08/28/2023 ; Diagnosis Type: Reason For Visit ; Confirmation: Confirmed ; Clinical Dx: Sore throat - Adult ; Classification: Medical ; Clinical Service: Non-Specified ; Code: PNED ; Probability: 0 ; Diagnosis Code: [id number] (As Of: 08/28/2023 11:32:26 EDT) Allergies (Active) [...] lb) Valerie Altamirano - 08/28/2023 11:31 EDT Normal [facility] RAP FLU A AND Bon 08-28-2023 Rapid Influenza A Antigen Test Negative Normal [facility] Comment on above: Result Comment: A po sitive Rapid Influenza A Antigen Test indicates the presence of Influenza A. This is a screening test only and should be correlated with the patient's clinical symptoms. Performed By: #### 5 [id number] ####[facility] Laboratory [address] [place] [address] Medical Director: Edison Dasilva MD Rapid Influenza B Antigen Test Negative Normal [facility] Comment on above: Result Comment: A po sitive Rapid Influenza B Antigen Test indicates the presence of Influenza B. This is a screening test only and should be correlated with the patients's clinical symptoms. Performed By: #### 5 [id number], [id number], [id number] ####[facility] Laboratory [address] [place], [place] [id number]) [phone] Director: Edison Dasilva MD RFAB INT QC Present Normal [facility] Comment on above: Performed By: #### 5 [id number], [id number], [id number] ####[facility] [address] [place], [place] [id number]) [phone] Director: Edison Dasilva MD RAPID STRon 08-28-2023 RS INT QC Present Normal [facility] Comment on above: Performed By: #### 5 [id number], [id number], [id number] ####[facility] [address] [place], [place] [id number]) [phone] Director: Edison Dasliva MD S. pyogenes Ag IA Ql (Unsp spec) Negative Normal [facility] Comment on above: Result Comment: This assay is for the qualitative detection of Group A Streptococcal antigen in throat specimens. Pharyngitis may be caused by viral or bacterial pathogens other than Group A Streptococcal. Performed By: #### 5 [id number], [id number], [id number] ####[facility] [address] [place], [place] [id number]) [phone] Director: Edison Dasilva MD 36on 05-12-2023 36 [...] therapy. Order placed for consultation for urogynecology. [facility] 36on 05-08-2023 36 Pt aware of UA results, culture pending. Will call pt when culture results. Pt verbalized understanding, no further questions. [facility] 36 ----- Message from Fernando De La Rosa MD sent at 05/08/2023 6:12 AM EDT ----- Plz call, UA looks good, will await culture. ----- Message ----- From: [facility] Results In Sent: 05/08/2023 6:04 AM EDT To: Fernando De La Rosa MD [facility] Office Visiton 05-07-2023 Follow-up visit [id number] Corey Perla 1990 F Date Provider Department Center 05/07/2023 [id number] DE LA ROSA [facility] COORDINATOR None Family History Problem Relation Age of Onset Stroke Mother Multiple sclerosis Mother Diabetes Mother Cervical cancer Mother Breast cancer Mother Breast cancer Maternal Grandmother Breast cancer Paternal Grandmother Colon cancer Neg Hx Ovarian cancer Neg Hx Family Status - Relation Status Age at Mother Alive Maternal Grandmother Paternal Grandmother Neg Hx Level of Service:38239 [place] OFFICE/OUTPATIENT ESTABLISHED LOW MDM 20-29 MIN Reason for Visit and Comments: Cervical Cancer [[id number]] [facility] Progress Noteon 05-07-2023 Progress Note Called and [...] go out in the mail tomorrow 05/08/23. [facility] Progress Note CC: stage I B3 (p) [...] per day. She was seen in the [facility] emergency room couple weeks ago and was [...] and 500 mg before bedtime. HYDROcodone-acetamino phen (Freeport) 5-325 MG tablet Take 1 tablet by [...] nursing note reviewed. Exam conducted with a inventory management specialist present. Constitutional: Appearance: Normal appearance. Abdominal: General: [...] No s (more content not included)... Normal [facility] ED Physician Reporton 2022 ED Physician [...] Diagnosis Abdominal pain, acute R10.9 Orders: acetaminophen-hydroco done(Freeport 5 mg-325 mg oral tablet), 1 tabs, ORAL, [id number], PRN cephalexin(Keflex 500 mg oral capsule), 500 mg= 1 caps, ORAL, [id number] CBCWD, STAT, 04/22/2023 13:17:00 EDT COMPMETA, STAT, [...] D&C (11/15/2022) Gardasil vaccine series completed (2003) [place] teeth extraction Medication Reconciliation Unchang (more content not included)... Normal [facility] Hospital Encounteron 023 Hospital Encounter [id number] Corey Perla 1990 F Date Provider Department Center 04/24/2023 ALDO HELM [facility] RAD ON None Family History Problem Relation Age of Onset Stroke Mother Multiple sclerosis Mother Diabetes Mother Cervical cancer Mother Breast cancer Mother Breast cancer Maternal Grandmother Breast cancer Paternal Grandmother Colon cancer Neg Hx Ovarian cancer Neg Hx Family Status - Relation Status Age at Mother Alive Maternal Grandmother Paternal Grandmother Neg Hx Level of Service:96080 [place] OFFICE/OUTPATIENT ESTABLISHED LOW MDM 20-29 MIN Reason for Visit and Comments: Follow-up [[id number]] [facility] Nursing Noteon 04-24-2023 Nursing Note Under the direction of Dr. Ocampo, the RN gave the patient a small and medium vaginal dilator. The RN gave and reviewed vaginal dilator use and care. The patient verbalized understanding. [facility] Nursing Note The patient is here at [facility] by herself for follow up with Dr. Ocampo. The patient denies any skin issues at the previous site of radiation. The patient states she is having 7/10 right abdominal pain that radiates to her right rib cage. She states she was at [facility] ED on 04/22/23. She was informed by [...] with Dr. De La Rosa for 04/30/23. [facility] Progress Noteon 04-24-2023 Progress Note RADIATION ONCOLOGY [...] rib cage. She states she was at [facility] ED on 04/22/23. She was informed by [...] and 500 mg before bedtime. HYDROcodone-acetamino phen (Freeport) 5-325 MG tablet Take 1 tablet by [...] has ri (more content not included)... Normal [facility] SHS AUTO DIFFon 04-22-2023 Baso Count 0.10 x1000 Normal 0.00-0.20 [facility] Comment on above: Performed By: #### C D:[id number] #### [facility] [address] [place] [address] Crankshaft Straightener: Edsion Dasilva MD Basos % 0.4 % Normal [facility] Comment on above: Performed By: #### C D:[id number] #### [facility] Services [address] [place] [address] Crankshaft Straightener: Edison Dasilva MD Eos Count 0.10 x1000 Normal 0.00-0.50 [facility] Comment on above: Performed By: #### C D:[id number] #### [facility] [address] [place] [address] Crankshaft Straightener: Edison Dasilva MD Eosinophils/100 WBC (Bld) 0.5 % Normal [facility] Comment on above: Performed By: #### C D:[id number] #### [facility] [address] [place] [address] Crankshaft Straightener: Edison Dasilva MD Lymph Count 0.70 x1000 Low 1.20-4.80 [facility] Comment on above: Performed By: #### C D:[id number] #### [facility] [address] [place] [address] Crankshaft Straightener: Edison Dasilva MD Lymphocytes/100 WBC (Bld) 6.0 % Normal [facility] Comment on above: Performed By: #### C D:[id number] #### [facility] [address] [place] [address] Crankshaft Straightener: Edison Dasilva MD [place] Count 1.10 x1000 High 0.10-1.00 [facility] Comment on above: Performed By: #### C D:[id number] #### [facility] Services [address] [place] [address] Crankshaft Straightener: Edison Dasilva MD Monocytes/100 WBC (Bld) 9.1 % Normal [facility] Comment on above: Performed By: #### C D:[id number] #### [facility] Services [address] [place] [address] Crankshaft Straightener: Edison Dasilva MD Neutrophil Count (ANC) 9.90 x1000 High 1.40-8.80 So [facility] Comment on above: Performed By: #### C D:[id number] #### [facility] Services [address] [place] [address] Crankshaft Straightener: Edison Dasilva MD Neutrophils/100 WBC (Bld) 84.0 % Normal [facility] Comment on above: Performed By: #### C D:[id number] #### [facility] Services [address] [place] [address] Crankshaft Straightener: Edison Dasilva MD Red Blood Cell Morphology See Notes Abnormal [facility] Comment on above: Result Comment: Anis ocytosis 2+ Performed By: #### C D:[id number] #### [facility] Services [address] [place] [address] Crankshaft Straightener: Edison Dasilva MD Scan Differential Diff Scd Normal [facility] Comment on above: Result Comment: Slid e reviewed by technologist. Performed By: #### C D:[id number] #### [facility] Services [address] [place] [address] Crankshaft Straightener: Edison Dasilva MD COMPMETAon 04-22-2023 GFR Estimated 84 Normal [facility] Comment on above: Result Comment: The GFR is calculated and is Age, Sex, and Race adjusted. Performed By: #### C D:[id number] #### [facility] Services [address] [place] [address] Crankshaft Straightener: Edison Dasilva MD Albumin [Mass/Vol] 4.3 g/dL Normal 3.4-5.0 [facility] Comment on above: Performed By: #### C D:[id number] #### [facility] Services [address] [place] [address] Crankshaft Straightener: Edison Dasilva MD Albumin/Globulin [Mass ratio] 1.1 {ratio} Normal [facility] Comment on above: Performed By: #### C D:[id number] #### [facility] Services [address] [place] [address] Crankshaft Straightener: Edison Dasilva MD Alk Phos 123 unit/L High 45-117 [facility] Comment on above: Performed By: #### C D:[id number] #### [facility] Services [address] [place] [address] Crankshaft Straightener: Edison Dasilva MD Bilirubin [Mass/Vol] 0.30 mg/dL Normal 0.20-1.00 [facility] Comment on above: Result Comment: Use of this assay is not recommended for patients undergoing treatment with eltrombopag due to the potential for falsely elevated results. Performed By: #### C D:[id number] #### [facility] Services [address] [place] [address]68 Crankshaft Straightener: Edison Dasilva MD Calcium [Mass/Vol] 9.5 mg/dL Normal 8.5-10.5 [facility] Comment on above: Performed By: #### C D:[id number] #### [facility] Services [address] [place] [address] Crankshaft Straightener: Edison Dasilva MD Chloride [Moles/Vol] 103 mmol/L Normal 100-109 [facility] Comment on above: Performed By: #### C D:[id number] #### [facility] Services [address] [place] [address] Crankshaft Straightener: Edison Dasilva MD CO2 [Moles/Vol] 25.6 mmol/L Normal 21.0-32.0 [facility] Comment on above: Performed By: #### C D:[id number] #### [facility] Services [address] [place] [address] Crankshaft Straightener: Edison Dasilva MD Creatinine [Mass/Vol] 0.8 mg/dL Normal 0.6-1.0 [facility] Comment on above: Performed By: #### C D:[id number] #### [facility] Services [address] [place] [address] Crankshaft Straightener: Edison Dasilva MD Globulin (S) [Mass/Vol] 3.9 g/dL Normal [facility] Comment on above: Performed By: #### C D:[id number] #### [facility] Services [address] [place] [address] Crankshaft Straightener: Edison Dasilva MD Glucose [Mass/Vol] 105 mg/dL High 72-100 [facility] Comment on above: Result Comment: Raven puncture should occur prior to sulfasalazine administration due to the potential for falsely depressed results. Venipuncture should occur prior to sulfapyridine administration due to the potential falsely elevated results. Baseline assay values before administration of sulfasalazine and sulfapyridine therapy would not be affected. Performed By: #### C D:[id number] #### [facility] Services [address] [place], [place] [address] Crankshaft Straightener: Edison Dasilva MD GOT 16 unit/L Normal 15-37 [facility] Comment on above: Result Comment: Raven puncture should occur prior to sulfasalazine administration due to the potential for falsely depressed results. Baseline assay values before administration of sulfasalazine and sulfapyridine therapy would not be affected. Performed By: #### C D:[id number] #### [facility] Services [address] [place] [address] Crankshaft Straightener: Edison Dasilva MD GPT 17 unit/L Normal 14-59 [facility] Comment on above: Result Comment: Raven puncture should occur prior to sulfasalazine administration due to the potential for falsely depressed results. Baseline assay values before administration of sulfasalazine and sulfapyridine therapy would not be affected. Performed By: #### C D:[id number] #### [facility] Services [address] [place] [address] Crankshaft Straightener: Edison Dasilva MD Osmolality [Osmolality] 283 mosm/kg Normal 275-295 [facility] Comment on above: Performed By: #### C D:[id number] #### [facility] Services [address] [place] [address] Crankshaft Straightener: Edison Dasilva MD Potassium [Moles/Vol] 3.5 mmol/L Normal 3.5-5.1 [facility] Comment on above: Performed By: #### C D:[id number] #### [facility] Services [address] [place] [address] Crankshaft Straightener: Edison Dasilva MD Protein [Mass/Vol] 8.2 g/dL Normal 6.0-8.5 [facility] Comment on above: Performed By: #### C D:[id number] #### [facility] Services [address] [place] [address] Crankshaft Straightener: Edison Dasilva MD Sodium [Moles/Vol] 141 mmol/L Normal 135-145 [facility] Comment on above: Performed By: #### C D:[id number] #### [facility] Services [address] [place] [address] Crankshaft Straightener: Edison Dasilva MD Urea nitrogen [Mass/Vol] 15 mg/dL Normal 10-20 [facility] Comment on above: Performed By: #### C D:[id number] #### [facility] Services [address] [place] [address] Crankshaft Straightener: Edison Dasilva MD Urea nitrogen/Creatinine [Mass ratio] 18.8 mg/mg Normal [facility] Comment on above: Performed By: #### C D:[id number] #### [facility] Services [address] [place] [address] Crankshaft Straightener: Edison Dasilva MD CT ABD PELVIS W [...] SKELTON MD Signed Out: 04/22/23 14:50:45 Normal [facility] ED Adult Data - Texton 04-22 ED [...] Tetanus : None received Preferred Verbal : Ukrainian Preferred Written : Ukrainian Zoie Solis RN - 04/22/2023 13:19 EDT [...] EDT) Problems(Active) Adenocarcinoma of cervix (SNOMED CT :680280528 ) Name of Problem: Adenocarcinoma of cervix ; Recorder: IDALMIS JIMENEZ; Confirmation: Confirmed ; Classification: Medical ; Code: 945223181 ; Contributor System: X2IMPACT ; Last Updated: 11/28/2022 11:14 EST ; Life Cycle Date: 11/28/2022 ; Life Cycle Status: Active ; Responsible Provider: IDALMIS JIMENEZ; Vocabulary: SNOMED CT Cervical mass (SNOMED CT :263347142 ) Name of Problem: Cervical mass ; Recorder: IDALMIS JIMENEZ; Confirmation: Confirmed ; Classification: Medical ; Code: 119850047 ; Contributor System: PowerChart ; Last Updated: 10/09/2022 14:49 EST ; Life Cycle Date: 10/09/2022 ; Life Cycle Status: Active ; Responsible Provider: IDALMIS JIMENEZ; Vocabulary: SNOMED CT High risk HPV infection (SNOMED CT :624206340 ) 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 ; Recorder: IDALMIS JIMENEZ; Confirmation: Confirmed ; Classification: Medical ; Code: [id number] ; Contributor System: [employer] ; Last Updated: 10/09/2022 14:49 EST ; Life Cycle Date: 10/09/2022 ; Life Cycle Status: Active ; Responsible Provider: IDALMIS JIMENEZ; Vocabulary: SNOMED CT HPV in female (SNOMED CT :382638686 ) 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 ; Recorder: Karina Encinas RN; Confirmation: Confirmed ; Classification: Medical ; Code: [id number] ; Contributor System: X2IMPACT ; Last Updated: 2022 07:37 EST ; Life Cycle Date: 2022 ; Life Cycle Status: Active ; Vocabulary: SNOMED CT Diagnoses(Active) Abdominal pain Date: 04/22/2023 ; Diagnosis Type: Reason For Visit ; Confirmation: Confirmed ; Clinical Dx: Abdominal pain ; Classification: Medical ; Clinical Service: Non-Specified ; Code: IMO ; Probability: 0 ; Diagnosis Code: 63111 Procedure History ED Devices Present on Arrival To ED : None Urinary Catheter Present on Admit to ED : Zoie Petty RN - 04/22/2023 13:19 EDT - Procedure History (As Of: 04/22/2023 13:20:56 EDT) Procedure Dt/Tm: 2003 ; Anesthesia Minutes: 0 ; Procedure Name: Gardasil vaccine series completed ; Procedure Minutes: 0 Procedure Dt/Tm: 11/15/2022 ; Provider: IDALMIS JIMENEZ; Anesthesia Minutes: 0 ; Procedure Name: HYSTEROSCOPY D&C ; Procedure Minutes: 0 Anesthesia Minutes: 0 ; Procedure Name: [place] teeth extraction ; Procedure Minutes: 0 Social History Does pt have any alcohol,drugs or tobacco : No Do you consume Alcohol : No Social History obtained from : Patient Zoie Solis RN - 04/22/2023 13:19 EDT Social History (As Of: 04/22/2023 13:20:56 EDT) Alcohol: Denies Alcohol Use (Last Updated: 10/09/2022 09:17:27 EST by Sudhakar Linn MA ) Tobacco: 10 or more cigarettes (1/2 pack or more)/day in last 30 days Tobacco Use:. (Last Updated: 11/22/2021 13:34:49 EST by Glory Dumont MA) Substance Abuse: Denies Substance Abuse (Last Updated: 10/31/2022 11:04:54 EST by Sanchez Henderson RN ) Sexual: Other contraceptive use: none. (Last Updated: 10/09/2022 09:17:36 EST by Sudhakar Linn MA) Infection Screening Travel outside US within past 30 days : No Exposure AND/OR close contact with a person under investigation or laboratory-confirmed COVID-19 individual within 14 days of symptom onset AND/OR any of the following: : No Do you live/work in a high risk situation (congregated living, hemodialysis, infusion clinic, long-term, assisted living, detention, homeless mcc, etc.)? : No Zoie Solis RN - 04/22/2023 13:19 EDT Normal [facility] ED Discharge Educationon ED Discharge Education Gastrointestinal [...] Where can you learn more? Go to https://www.[employer].net/patientEd Enter E907 in the search box to learn more about Abdominal Pain: Care Instructions. Current as of: January 16, 2022 Content Version: 13.3 ? [employer]. Care instructions adapted under license by your healthcare professional. If you have questions about a medical condition or this instruction, always ask your healthcare professional. [employer] disclaims any warranty or liability for your use of this information. Normal [facility] ED Emergency Severity Index Adult-Texton 04-22-2023 ED Emergency Severity Index Adult-Text ANDREA - Adult Entered On: 04/22/2023 12:51 EDT Performed On: 04/22/2023 12:51 EDT by Rosa Mcbride RN ANDREA DCP GENERIC CODE Visit Reason : ABD PAIN Tracking Triage Date/Time : 04/22/2023 12:51 EDT Tracking Reg Status : Requested Tracking Acuity : 3-Urgent Tracking Group : Rosa Malloy RN - 04/22/2023 12:51 EDT Normal [facility] ED Nrsing Adlt Triage Sep Sc rning - Texton 04-22-2023 ED Nrsing Adlt Triage Sep Scrning - Text ED Nursing Adult Triage Sepsis Screening Tool Entered On: 04/22/2023 13:18 EDT Performed On: 04/22/2023 13:18 EDT by Zoie Solis RN Adult Sepsis Screening Sepsis Infection Screening ED : No Zoie Solis RN - 04/22/2023 13:18 EDT Normal [facility] ED Patient Summaryon 023 ED Patient Summary [facility] Emergency Department Discharge Instructions [facility] [place] [address] (Patient Copy) Name: COREY PERLA : 1990 Allergies: No Known Allergies Diagnosis: Abdominal pain, acute Visit Date: 04/22/2023 12:50:38 Current Date Time: 04/22/2023 16:30:18 Address: [address] [place] [address] Phone: [phone] Primary Care Provider: Name: NO FAMILY PHYSICIAN, 837 Phone: Emergency Department Care Providers: Primary Physician: SILVIA GARCIA MD Thank you for choosing [facility] for your emergency care. You are very important to us. Our goal is to demonstrate our high quality medical care, and provide you with a very good patient experience. You may receive a survey about our service. Please take the time to complete the survey and return it so we can continue to enhance our service. Thank you again for allowing the [facility] Emergency Department to care for your medical needs. If you have questions about your care or follow up information please contact us at [phone]. Follow-Up Instructions COREY PERLA has been given [...] Where can you learn more? Go to https://www.[employer].net/patientEd Enter E907 in the search box to learn more about Abdominal Pain: Care Instructions. Current as of: January 16, 2022 Content Version: 13.3 ? [id number] [employer]. Care instructions adapted under license by your healthcare professional. If you have questions about a medical condition or this instruction, always ask your healthcare professional. [employer] (more content not included)... Normal [facility] ED Progress Noteon ED Progress Note 1300 PT TO ED [...] TO PT PT VERBALZIED UNDERSTANDING VSS Normal [facility] ED Triage Adult-Texton 04-22 ED Triage Adult-Text ED Triage Entered O n: 04/22/2023 13:19 EDT Performed On: 04/22/2023 13:18 EDT by Zoie Solis RN Triage (As Of: 04/22/2023 13:19:15 EDT) Problems(Active) Adenocarcinoma of cervix (SNOMED CT :381242566 ) Name of Problem: Adenocarcinoma of cervix ; Recorder: IDALMIS JIMENEZ; Confirmation: Confirmed ; Classification: Medical ; Code: 752595509 ; Contributor System: X2IMPACT ; Last Updated: 11/28/2022 11:14 EST ; Life Cycle Date: 11/28/2022 ; Life Cycle Status: Active ; Responsible Provider: IDALMIS JIMENEZ; Vocabulary: SNOMED CT Cervical mass (SNOMED CT :457489572 ) Name of Problem: Cervical mass ; Recorder: IDALMIS JIMENEZ; Confirmation: Confirmed ; Classification: Medical ; Code: 518488280 ; Contributor System: [employer]Chart ; Last Updated: 10/09/2022 14:49 EST ; Life Cycle Date: 10/09/2022 ; Life Cycle Status: Active ; Responsible Provider: IDALMIS JIMENEZ; Vocabulary: SNOMED CT High risk HPV infection (SNOMED CT :093668533 ) 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 ; Recorder: IDALMIS JIMENEZ; Confirmation: Confirmed ; Classification: Medical ; Code: 074139985 ; Contributor System: [employer]Chart ; Last Updated: 10/09/2022 14:49 EST ; Life Cycle Date: 10/09/2022 ; Life Cycle Status: Active ; Responsible Provider: IDALMIS JIMENEZ; Vocabulary: SNOMED CT HPV in female (SNOMED CT :992776924 ) 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 ; Recorder: Karina Encinas RN; Confirmation: Confirmed ; Classification: Medical ; Code: 182376813 ; Contributor System: X2IMPACT ; Last Updated: 2022 07:37 EST ; Life Cycle Date: 2022 ; Life Cycle Status: Active ; Vocabulary: SNOMED CT Diagnoses(Active) Abdominal pain Date: 04/22/2023 ; Diagnosis Type: Reason For Visit ; Confirmation: Confirmed ; Clinical Dx: Abdominal pain ; Classification: Medical ; Clinical Service: Non-Specified ; Code: IMO ; Probability: 0 ; Diagnosis Code: 50001 (As Of: 04/22/2023 13:19:15 EDT) Allergies (Active) [...] Solis RN - 04/22/2023 13:18 EDT Normal [facility] HEMOon 04-22-2023 DIFF? No Normal [facility] Comment on above: Performed By: #### C [id number] #### [facility] [address] [place], [place] [address] [employer] Straightener: Edison Dasilva MD [facility] Actions See Notes Abnormal [facility] Comment on above: Result Comment: Scan for RBC Morphology. Scan for RBC Morphology SNV Performed By: #### C [id number] #### [facility] [address] [place], [place] [address] [employer] Straightener: Edison Dasilva MD Erythrocyte distribution width (RBC) [Ratio] 20.0 % High 11.5-14.5 [facility] Comment on above: Performed By: #### C [id number] #### [facility] [address] [place], [place] [address] [employer] Straightener: Edison Dasilva MD Hematocrit (Bld) [Volume fraction] 33.9 % Low 36.0-46.0 [facility] Comment on above: Performed By: #### C [id number] #### [facility] [address] [place], [place] [address] [employer] Straightener: Edison Dasilva MD Hemoglobin (Bld) [Mass/Vol] 11.5 g/dL Low 12.0-16.0 [facility] Comment on above: Performed By: #### C [id number] #### [facility] [address] [place], [place] [address] [employer] Straightener: Edison Dasilva MD Instr WBC 11.8 Normal [facility] Comment on above: Performed By: #### C [id number] #### [facility] [address] [place] [address] [employer] Straightener: Edison Dasilva MD MCH (RBC) [Entitic mass] 33.8 pg Normal 27.0-34.0 [facility] Comment on above: Performed By: #### C [id number] #### [facility] [address] [place] [address] [employer] Straightener: Edison Dasilva MD MCHC (RBC) [Mass/Vol] 33.8 g/dL Normal 32.0-37.0 [facility] Comment on above: Performed By: #### C [id number] #### [facility] [address] [place], [place] [address] [employer] Straightener: Edison Dasilva MD MCV (RBC) [Entitic vol] 100.0 fL Normal 80.0-100.0 [facility] Comment on above: Performed By: #### C [id number] #### [facility] [address] [place] [address] [employer] Straightener: Edison Dasilva MD Nucleated RBC 0 /100WBC Normal [facility] Comment on above: Performed By: #### C D:[id number] #### [facility] [address] [place], [place] [address] [employer] Straightener: Edison Dasilva MD Platelet 532 x10 High 150-450 [facility] Comment on above: Performed By: #### C [id number] #### [facility] [address] [place] [address] [employer] Straightener: Edison Dasilva MD Platelet mean volume (Bld) [Entitic vol] 6.5 fL Low 7.4-10.4 [facility] Comment on above: Performed By: #### C D:[id number] #### [facility] [address] [place] [address] [employer] Straightener: Edison Dasilva MD RBC 3.39 x10 Low 4.20-5.40 [facility] Comment on above: Result Comment: Note : RBC morphology is normal unless otherwise stated. Evaluation performed only if differential is requested. Performed By: #### C D:[id number] #### [facility] [address] [place] [address] [employer] Straightener: Edison Dasilva MD WBC 11.8 x10 High 4.5-11.0 [facility] Comment on above: Performed By: #### C D:[id number] #### [facility] [address] [place] [address] [employer] Straightener: Edison Dasilva MD KETOROLAC 15MG/1ML INJon KETOROLAC 15MG/1ML INJ PRN Response Ente red On: 04/22/2023 14:21 EDT Performed On: 04/22/2023 14:00 EDT by Zoie Solis RN Intervention Information: ketorolac Performed by Zoie Solis RN on 04/22/2023 13:32:00 EDT ketorolac = Toradol,15mg IV Push,Right Antecubit [place] PRN Medication Response PRN Medication used for [...] Solis RN - 04/22/2023 14:20 EDT Normal [facility] Comment on above: Order Comment: Verif y NEGATIVE Testdo not exceed 60mg/24hrs for patients over 65, 120mg/24hr for patients 65 or younger; LIPon 04-22-2023 Lipase [Catalytic activity/Vol] 22 U/L Normal 16-77 [facility] Comment on above: Performed By: #### C [id number] #### [facility] [address] [place] [address] [employer] Straightener: Edison Dasilva MD MorPHINE 2MG/1ML INJon 04-22 [...] Solis RN - 04/22/2023 16:24 EDT Normal [facility] Comment on above: Order Comment: deanna nievesbrigette SOUND ALIKE/LOOK ALIKE-verify med;potential SOUND ALIKE/LOOK ALIKE-verify med; UAon 04-22-2023 Bacteria, U Few Normal [facility] Comment on above: Performed By: #### 1 [id number] #### [facility] [address] [place] [address] [employer] Straightener: Edison Dasilva MD Mucous, U Occasional Normal [facility] Comment on above: Performed By: #### 1 30866 #### [facility] [address] [place] [address] [employer] Straightener: Edison Dasilva MD Non-Squamous Epithelial, U 1 #/HPF Normal [facility] Comment on above: Performed By: #### 1 01205 #### [facility] [address] [place] [address] [employer] Straightener: Edison Dasilva MD RBC/HPF, U <1 Normal 0-3 [facility] Comment on above: Performed By: #### 1 67424 #### [facility] [address] [place] [address] [employer] Straightener: Edison Dasilva MD Squamous Epithelial Cells, U 2 #/HPF Normal [facility] Comment on above: Performed By: #### 1 11989 #### [facility] [address] [place] [address] [employer] Straightener: Edison Dasilva MD U MICRO Indicated Normal [facility] Comment on above: Performed By: #### 1 37107 #### [facility] [address] [place] [address] [employer] Straightener: Edison Dasilva MD WBC/HPF, U 4 #/HPF Normal 0-5 [facility] Comment on above: Performed By: #### 1 02255 #### [facility] [address] [place] [address] [employer] Straightener: Edison Dasilva MD Appearance, U Sl Hazy Normal [facility] Comment on above: Performed By: #### 1 26300 #### [facility] [address] [place] [address] [employer] Straightener: Edison Dasilva MD Bilirubin, U Negative Normal Negative [facility] Comment on above: Performed By: #### 1 03220 #### [facility] [address] [place] [address] [employer] Straightener: Edison Dasilva MD Blood, U Negative Normal Negative [facility] Comment on above: Performed By: #### 1 87004 #### [facility] [address] [place] [address] [employer] Straightener: Edison Dasilva MD Color, U Yellow Normal [facility] Comment on above: Performed By: #### 1 31383 #### [facility] [address] [place] [address] [employer] Straightener: Edison Dasilva MD Glucose Qual, U Negative Normal Negative [facility] Comment on above: Performed By: #### 1 51422 #### [facility] [address] [place] [address] [employer] Straightener: Edsion Dasilva MD Ketones, U Negative Normal Negative [facility] Comment on above: Performed By: #### 1 91640 #### [facility] [address] [place] [address] [employer] Straightener: Edison Dasilva MD Leukocyte Esterase, U Trace Abnormal Negative [facility] Comment on above: Performed By: #### 1 11316 #### [facility] [address] [place] [address] [employer] Straightener: Edison Dasilva MD Nitrite, U Negative Normal Negative [facility] Comment on above: Performed By: #### 1 45279 #### [facility] [address] [place] [address] [employer] Straightener: Edison Dasilva MD pH, U 5.5 Normal 4.5-8.0 [facility] Comment on above: Performed By: #### 1 30931 #### [facility] [address] [place] [address] [employer] Straightener: Edison Dasilva MD Protein, U Negative Normal Negative [facility] Comment on above: Performed By: #### 1 37810 #### [facility] [address] [place] [address] [employer] Straightener: Edison Dasilva MD Specific [place], U S>=1.030 Normal 1.001-1.035 [facility] Comment on above: Performed By: #### 1 38553 #### [facility] [address] [place], [place] [address] [employer] Straightener: Edison Dasilva MD Urobilinogen Qual, U 0.2 EU/dl Normal 0.1-1.0 mg/dl [facility] Comment on above: Result Comment: EU/d l and mg/dl are equivalent units. Performed By: #### 1 06820 #### [facility] [address] [place], [place] [address] [employer] Straightener: Edison Dasilva MD 36on 03-24-2023 36 Pt aware of PET results, will follow up with Dr. De La Rosa next week. Pt verbalized understanding, no further questions. Normal [facility] 36 ----- Message from Fernando De [...] To: Fernando De La Rosa MD Normal [facility] 36 Pt called and informed she can go back to work per Dr. De La Rosa. Pt will need return to work letter and will call back with fax number. Normal [facility] PET+CT Bone from skull base to mid-thigh W 18F-NaF Jose 03-21-2023 No evidence of residual or recurrent FDG avid malignancy is identified. Report Dictated on Electronically Signed By: Brad Torres Electronically Signed Date/Time: 03/21/2023 12:59 PM EDT [facility] Patient Name: COREY PERLA : 1990 Exam Date/Time: 03/21/2023 09:28 Procedure: PET/CT SKULL [...] Unremarkable. No evidence of osseous metastatic disease. [facility] Brad Torres MD - 03/21/2023 [facility] 1990 [id number] Exam Date/Time: 03/21/2023 09:28 Procedure: PET/CT SKULL [...] Electronically Signed Date/Time: 03/21/2023 12:59 PM EDT [facility] Rad[facility]ative[facility] base to mid-thigh W 18F-NaF IVOrdered By: Brad Torres on 03-21-2023 [employer] Work Phone: Hospital Encounteron 023 Hospital Encounter [id number] Corey Perla 1990 F Date Provider Department Center 03/19/2023 [id number] RAD ON None Family History Problem Relation Age of Onset Stroke Mother Multiple sclerosis Mother Diabetes Mother Cervical cancer Mother Breast cancer Mother Breast cancer Maternal Grandmother Breast cancer Paternal Grandmother Colon cancer Neg Hx Ovarian cancer Neg Hx Family Status - Relation Status Age at Mother Alive Maternal Grandmother Paternal Grandmother Neg Hx Level of Service:71523 [place] OFFICE/OUTPT VISIT,PROCEDURE ONLY Normal [facility] RADCOMPNOTEon 03-19-2023 RADCOMPNOTE RADIATION ONCOLOGY TREATMENT SUMMARY [...] abdominal pain. DISPOSITION: Follow-up in 4-5 weeks. Aldo Ocampo MD [facility] Department of Radiation Oncology is an Accredited Facility of the [employer] (A[employer]). This document was [...] directly addressed to the provider for clarification. [facility] 03-18-2023 36 Approved for PET sca n Ref number [id number] Approved 03/17/2023-06/15/2023 Pt scheduled with [facility] for March 21 @ 700am [facility] 03-13-2023 36 Pt informed will repeat PET scan. Pt verbalized understanding. [facility] 36 Called pt with OV with Dr. De La Rosa following completion of cisplatin/radiation. Pt is requesting a follow up scan after completion. [facility] 03-12-2023 36 Called my [facility] infusion center and spoke to Amisha regarding adding 20 M EQ of potassium to patient's post hydration after chemotherapy. Verbalizes understanding [place] [id number] 36 Reached out to patient on this [...] if supportive care needs or questions arise. Normal [facility] CBC W Auto Differential pane l (Bld)Ordered By: Nikole Guardado on 03-04-2023 Basophils (Bld) [#/Vol] 0.0 10*3/uL 0.0 - 0.2 10*3/uL [facility] Basophils/100 WBC (Bld) 0.6 % 0.0 - 2.0 % [facility] Eosinophils (Bld) [#/Vol] 0.1 10*3/uL 0.0 - 0.5 10*3/uL [facility] Eosinophils/100 WBC (Bld) 1.0 % 1.0 - 6.0 % [facility] Erythrocyte distribution width (RBC) [Ratio] 13.1 % 11.5 - 14.5 % [facility] Hematocrit (Bld) [Volume fraction] 38.7 % 35.0 - 47.0 % [facility] Hemoglobin (Bld) [Mass/Vol] 13.2 g/dL 11.7 - 16.0 g/dL [facility] Immature granulocytes (Bld) [#/Vol] 0.0 10*3/uL NINF - 0.0 10*3/uL [facility] Immature granulocytes/100 WBC (Bld) 0.2 % High [facility] % [facility] Interpretation and review of laboratory results Abnormal [facility] Lymphocytes (Bld) [#/Vol] 0.6 10*3/uL Low 1.0 - 4.3 10*3/uL [facility] Lymphocytes/100 WBC (Bld) 12.4 % Low 20.0 - 40.0 % [facility] MCH (RBC) [Entitic mass] 31.4 pg 26.0 - 34.0 pg [facility] MCHC (RBC) [Mass/Vol] 34.1 % 32.0 - 36.0 % [facility] MCV (RBC) [Entitic vol] 92.1 fL 80.0 - 98.0 fL [facility] Monocytes (Bld) [#/Vol] 0.4 10*3/uL 0.0 - 0.8 10*3/uL [facility] Monocytes/100 WBC (Bld) 8.1 % 2.0 - 10.0 % [facility] Neutrophils (Bld) [#/Vol] 4.0 10*3/uL 1.8 - 7.0 10*3/uL [facility] Neutrophils/100 WBC (Bld) 77.7 % 40.0 - 80.0 % [facility] Platelet mean volume (Bld) [Entitic vol] 8.2 fL 7.4 - 12.4 fL [facility] Comment on above: MPV is a calculated measurement using platelet volume ratio Platelets (Bld) [#/Vol] 341 10*3/uL 140 - 440 10*3/uL [facility] RBC (Bld) [#/Vol] 4.20 10*6/uL 3.8 - 5.20 10*6/uL [facility] WBC (Bld) [#/Vol] 5.1 10*3/uL 3.6 - 10.7 10*3/uL [facility] Comprehensive metabolic 1998 panelon 03-04-2023 Albumin [Mass/Vol] 4.7 g/dL 3.5 - 5.0 g/dL [facility] ALP [Catalytic activity/Vol] 121 U/L 38 - 126 U/L [facility] ALT [Catalytic activity/Vol] 13 U/L 0 - 34 U/L [facility] Anion gap [Moles/Vol] 3 mmol/L 3 - 13 mmol/L [facility] AST [Catalytic activity/Vol] 22 U/L 15 - 46 U/L [facility] Bilirubin [Mass/Vol] 0.3 mg/dL 0.2 - 1.3 mg/dL [facility] Calcium [Mass/Vol] 9.7 mg/dL 8.4 - 10. 4 mg/dL [facility] Chloride [Moles/Vol] 105 mmol/L 98 - 107 mmol/L [facility] CO2 [Moles/Vol] 29 mmol/L 22 - 30 mmol/L [facility] Creatinine [Mass/Vol] 0.64 mg/dL 0.52 - 1.04 mg/dL [facility] GFR/1.73 sq M.predicted MDRD (S/P/Bld) [Vol rate/Area] - PINF [facility] Comment on above: Calculation based on the Chronic Kidney Disease Epidemiology Collaboration (CKD-EPI) equation refit without adjustment for race Glucose [Mass/Vol] 101 mg/dL High 70 - 100 mg/dL [facility] Interpretation and review of laboratory results Abnormal [facility] Potassium [Moles/Vol] 3.9 mmol/L 3.5 - 5.1 mmol/L [facility] Protein [Mass/Vol] 8.1 g/dL 6.3 - 8.2 g/dL Segundo [facility] Sodium [Moles/Vol] 137 mmol/L 135 - 145 mmol/L [facility] Urea nitrogen [Mass/Vol] 11 mg/dL 7 - 17 mg/dL [facility] Magnesiumon 03-04-2023 Magnesium [Mass/Vol] 1.6 mg/dL 1.6 - 2.3 mg/dL [facility] Magnesium [Mass/Vol]on 03-04 Interpretation and review of laboratory results Normal [facility] No Panel Informationon 03-04 [facility] Progress Noteon 03-04-2023 Progress Note Patient arrived [...] angio cath intact. Patient ambulatory to Radiation. Normal [facility] 36on 02-27-2023 36 Called patient with negative urine culture and also called concerning ultrasound of left superficial clot. Has improved and has partial compressibility. Instructed patient to continue heat elevation and ibuprofen. Patient verbalizes understanding and encouraged to call with any worsening symptoms. Normal [facility] 36on 02-26-2023 36 Spoke with pt and abhishek is feeling better today. Pt states she has the week off from radiation this week. Pt encouraged to call if she has questions or concerns. Will reschedule her Cisplatin that was held yesterday. Normal [facility] C URINEon 02-26-2023 C URINE [facility] Dept of Laboratory Services [address] [place] [phone] Name: COREY PERLA : 1990 Admitting Provider: Gender Female Financial [id number] : Number: Bernabe PANIAGUA; Bed 10; 1 [...] PERLA Print 02/26/2023 08:53 EDT Date/Time: Normal [facility] Comment on above: Performed By: #### 1 [id number] #### [facility] Laboratory Services [address] [place], [place] [id number] Crankshaft Straightener: Edison Dasilva MD Vascular US upper extremity [...] present in median antecubital vein. 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 During the study longitudinal and transverse views were obtained. Pulsed wave doppler was performed. The exam was performed with the patient in the supine position. Overall the study quality was adequate. [facility] 36on 02-25-2023 36 Spoke with pt, she went to ER last night with constant urination. Pt is now on pyridium and bactrim from ER. She feels better since on medications with burning in urethra. Pt states very weak. Made pt an appointment this morning in [place] office with HEAD REFRIGERATION ENGINEER Inga. Held Cisplatin and radiation today per HEAD REFRIGERATION ENGINEER. Pt is to get hydration today only. Spoke with Lyla at [facility]. Called Maryan at radiation and told her HEAD REFRIGERATION ENGINEER would update office after appointment. Will check PVR this am. [facility] 36 ----- Message from Fernando De La [...] results of the urinalysis and culture. Normal [facility] Office Visiton 02-25-2023 Follow-up visit [id number] Corey Perla 1990 F Date Provider Department Center 02/25/2023 [id number] XIONG [facility] ACTIVITIES COORDINATOR None Family History Problem Relation Age of Onset Stroke Mother Multiple sclerosis Mother Diabetes Mother Cervical cancer Mother Breast cancer Mother Breast cancer Maternal Grandmother Breast cancer Paternal Grandmother Colon cancer Neg Hx Ovarian cancer Neg Hx Family Status - Relation Status Age at Mother Alive Maternal Grandmother Paternal Grandmother Neg Hx Level of Service:74856 [place] OFFICE/OUTPATIENT ESTABLISHED MOD MDM 30-39 MIN Reason for Visit and Comments: Follow-up [796165] - Pt has a complaint of pain in Urethra Normal [facility] Progress Noteon 02-25-2023 Progress Note Patient tolerated IV hydration well. Vitals obtained post administration. PIV d/c'd angio cath intact. Patient stable and ambulatory upon discharge. Normal [facility] Progress Note ARRIVAL NOTE INFUSIO N Patient is here for IV hydration Labs were not ordered Normal [facility] Progress Note Pt emptied bladder. PVR is 25 ml. Will send off for culture. Normal [facility] Progress Note CC: here for chemotherapy [...] Pelvic Nodes Examined 10 Number of Pelvic Gifford Nodes Examined 8 Total Number of Para-aortic [...] left arm ten (more content not included)... Normal [facility] 36on 02-24-2023 36 The patient was at [facility] for her daily radiation treatment. The [...] the answering service to speak with the environmental journalist physician regarding the patient current condition. Dr. [...] Dr. Ocampo at the current time. Normal [facility] 36 Name of caller requesting page:Juan Phone Number of caller: [phone] Facility requesting page: On-Call Finder Reason for Page: Update on patient Provider paged: Dr De La Rosa Practice Name of paged provider: Violet Page Placed to #: On-Call Finder Time Page was sent or provider contacted: 4:39pm Page Content: Please call [facility] ([phone]). Pt has increased pelvic pain/pressure. small amount urination. Normal [facility] ED Adult Data - Texton 02-24 [...] Less than 5 years Preferred Verbal : Ukrainian Karina Encinas RN - 02/24/2023 17:56 EDT [...] Karina Encinas RN - 02/24/2023 17:56 EDT (As Of: 02/24/2023 17:59:50 EDT) Problems(Active) Adenocarcinoma of cervix (SNOMED CT :880971782 ) Name of Problem: Adenocarcinoma of cervix ; Recorder: IDALMIS JIMENEZ; Confirmation: Confirmed ; Classification: Medical ; Code: [id number] ; Contributor System: [id number] ; Last Updated: 11/28/2022 11:14 EST ; Life Cycle Date: 11/28/2022 ; Life Cycle Status: Active ; Responsible Provider: IDALMIS JIMENEZ; Vocabulary: [facility] Cervical mass (SNOMED CT :779054302 ) Name of Problem: Cervical mass ; Recorder: IDALMIS JIMENEZ; Confirmation: Confirmed ; Classification: Medical ; Code: [id number] ; Contributor System: [employer] ; Last Updated: 10/09/2022 14:49 EST ; Life Cycle Date: 10/09/2022 ; Life Cycle Status: Active ; Responsible Provider: IDALMIS JIMENEZ; Vocabulary: SNOMED CT High risk HPV infection (SNOMED CT :058932682 ) 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 ; Recorder: IDALMIS JIMENEZ; Confirmation: Confirmed ; Classification: Medical ; Code: [id number] ; Contributor System: [employer]Chart ; Last Updated: 10/09/2022 14:49 EST ; Life Cycle Date: 10/09/2022 ; Life Cycle Status: Active ; Responsible Provider: IDALMIS JIMENEZ; Vocabulary: SNOMED CT HPV in female (SNOMED CT :921377620 ) 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 ; Recorder: Karina Encinas RN; Confirmation: Confirmed ; Classification: Medical ; Code: [id number] ; Contributor System: PowerChart ; Last Updated: [...] EDT Anesthesia Minutes: 0 ; Procedure Name: [place] teeth extraction ; Procedure Minutes: 0 ; Last Reviewed Dt/Tm: 02/24/2023 17:59:38 EDT Social History Does pt have any alcohol,drugs or tobacco : No Do you consume Alcohol : No Social History obtained from : Patient Karina Encinas RN - 02/24/2023 17:56 EDT Social History (As Of: 02/24/2023 17:59:50 EDT) Alcohol: Denies Alcohol Use (Last Updated: 10/09/2022 09:17:27 EST by Sudhakar Linn MA ) Tobacco: 10 or more cigarettes (1/2 pack or more)/day in last 30 days Tobacco Use:. (Last Updated: 11/22/2021 13:34:49 EST by Glory Dumont MA) Substance Abuse: Denies Substance Abuse (Last Updated: 10/31/2022 11:04:54 EST by Sanchez Henderson RN ) Sexual: Other contraceptive use: none. (Last Updated: 10/09/2022 09:17:36 EST by Sudhakar Linn MA) Infection Screening Last Physical Overnight Location of the Patient : Personal Residence Travel outside US within past 30 days : No Exposure AND/OR close contact with a person under investigation or laboratory-confirmed COVID-19 individual within 14 days of symptom onset AND/OR any of the following: : No Do you live/work in a high risk situation (congregated living, hemodialysis, infusion clinic, long-term, assisted living, detention, homeless mcc, etc.)? : Melany Encinas RN, Karina - 02/24/2023 17:56 EDT Normal [facility] ED Discharge Educationon ED Discharge Education Urology [...] Where can you learn more? Go to https://www.Ivaldi/patientEd Enter K848 in the search box to learn more about Urinary Tract Infection (UTI) in Women: Care Instructions. Current as of: August 27, 2021 Content Version: 13.3 ? [employer]. Care instructions adapted under license by your healthcare professional. If you have questions about a medical condition or this instruction, always ask your healthcare professional. [employer] disclaims any warranty or liability for your [...] to displa (more content not included)... Normal [facility] ED Emergency Severity Index Adult-Texton 02-24-2023 ED Emergency Severity Index Adult-Text ANDREA - Adult Entered On: 02/24/2023 17:54 EDT Performed On: 02/24/2023 17:27 EDT by Karina Encinas RN DCP GENERIC CODE Visit Reason : PAIN WITH URINATION, URETHRAL PAIN, CHEMO PT, RADICAL HYSTERECTOMY ON 12/17 Tracking Triage Date/Time : 02/24/2023 17:54 EDT Tracking Reg Status : Complete Tracking Acuity : 3-Urgent Tracking Group : Karina Liu RN - 02/24/2023 17:54 EDT Normal [facility] ED Nrsing Adlt Triage Sep Sc rning - Texton 02-24-2023 ED Nrsing Adlt Triage Sep Scrning - Text ED Nursing Adult Triage Sepsis Screening Tool Entered On: 02/24/2023 17:55 EDT Performed On: 02/24/2023 17:27 EDT by Karina Encinas RN Adult Sepsis Screening Sepsis Infection Screening ED : Yes Sepsis Vitals Screening ED : None/ NA(Peds) Karina Encinas RN - 02/24/2023 17:55 EDT Normal [facility] ED Patient Summaryon 023 ED Patient Summary [facility] Emergency Department Discharge Instructions [facility] [place] [address] (Patient Copy) Name: COREY PERLA : 1990 Allergies: No Known Allergies Diagnosis: Acute lower urinary tract infection Visit Date: 02/24/2023 17:19:46 [facility]#: [id number] Current Date Time: 02/24/2023 18:56:13 Address: [address] [place] [address] Phone: [phone] Primary Care Provider: Name: NO FAMILY PHYSICIAN, 837 Phone: Emergency Department Care Providers: Primary Physician: CHARLY SARAH DO Thank you for choosing [facility] for your emergency care. You are very important to us. Our goal is to demonstrate our high quality medical care, and provide you with a very good patient experience. You may receive a survey about our service. Please take the time to complete the survey and return it so we can continue to enhance our service. Thank you again for allowing the [facility] Emergency Department to care for your medical needs. If you have questions about your care or follow up information please contact us at [phone]. Follow-Up Instructions RAJICOREY MI has been given these follow-up instructions: With: Address: When: Please follow-up with your split leather mosser Within 3 to 5 days Patient Education Materials BABSCOREY has been given the following patient education [...] Where can you learn more? Go to https://www.[employer].net/patientEd Enter K848 in the search box to learn more about Urinary Tract Infection (UTI) in Women: Care Instructions. Current as of: August 27, 2021 Content Version: 13.3 ? [employer]. Care instructions adapted under license by your healthcare professional. If you have questions about a medical condition or this instruction, always ask your healthcare professional. [employer] disclaims any warranty or liability for your use of this information. You Painful Urination (Dysuria): Care Instructions Your Care Instructions Burning pain with urination (dysuria) is a common symptom of a urinary tract infection or other urinary problems. The bladder may bec (more content not included)... Normal [facility] ED Physician Reporton 2022 ED Physician Report [...] series completed in 2003 at 14 Years. [place] teeth extraction.. Family history: Diabetes.. Mother (Dx:35) [...] Color, U Yellow Appearance, U Clear Specific [place], U 1.025 pH, U 6.5 Protein, U [...] Plan Diagnosis Acute lower urinary tract infection (QXW21-HR N39.0, Working, Medical) Plan Condition: Stable. Disposition: ED Discharge to Home was placed.(02/24/2023 18:41:00 EDT, Constant Order), Discharged: Time 02/24/2023 18:41:00, to home. Prescriptions: Launch prescriptions Pharmacy: Pyridium 200 mg oral tablet (Prescribe): 200 mg = 1 tabs, ORAL, TID, for 3 days, 9 tabs, 0 Refill(s) SMZ-TMP DS 800 mg-160 mg oral tablet (Prescribe): 1 tabs, ORAL, [id number], for 7 days, 14 tabs, 0 Refill(s). Patient was given the following educational materials: Dysuria, UTI (Urinary Tract Infection): Female, UTI (Urinary Tract Infection): Female, Dysuria. Follow up with: ; Please follow-up with your split leather mosser Within 3 to 5 days. Counseled: Patient, Regarding diagnosis, Regarding diagnostic results, Regarding treatment plan, Regarding prescription, Patient indicated understanding of instructions. Normal [facility] ED Progress Noteon 3 ED Progress Note 1727 brought in through triage with complaints of dysuria and hesitancy of urine. denies fever and chills. warm, pink, dry. resp even and unlabored. 1853 patient medicated. prescriptions given to patient. patient verbalized discharge instructions. warm, pink, dry. Normal [facility] ED Triage Adult-Texton 02-24 ED Triage Adult-Text ED Triage Entered O n: 02/24/2023 17:56 EDT Performed On: 02/24/2023 17:27 EDT by Karina Encinas RN Triage (As Of: 02/24/2023 17:56:48 EDT) Problems(Active) Adenocarcinoma of cervix (SNOMED CT :186492546 ) Name of Problem: Adenocarcinoma of cervix ; Recorder: IDALMIS JIMENZE; Confirmation: Confirmed ; Classification: Medical ; Code: [id number] ; Contributor System: PowerChart ; Last Updated: 11/28/2022 11:14 EST ; Life Cycle Date: 11/28/2022 ; Life Cycle Status: Active ; Responsible Provider: IDALMIS JIMENEZ; Vocabulary: SNOMED CT Cervical mass (SNOMED CT :956786770 ) Name of Problem: Cervical mass ; Recorder: IDALMIS JIMENEZ; Confirmation: Confirmed ; Classification: Medical ; Code: [id number] ; Contributor System: PowerChart ; Last Updated: 10/09/2022 14:49 EST ; Life Cycle Date: 10/09/2022 ; Life Cycle Status: Active ; Responsible Provider: IDALMIS JIMENEZ; Vocabulary: SNOMED CT High risk HPV infection (SNOMED CT :371328382 ) 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 ; Recorder: IDALMIS JIMENEZ; Confirmation: Confirmed ; Classification: Medical ; Code: 979200289 ; Contributor System: Ne[employer]Chart ; Last Updated: 10/09/2022 14:49 EST ; Life Cycle Date: 10/09/2022 ; Life Cycle Status: Active ; Responsible Provider: IDALMIS JIMENEZ; Vocabulary: SNOMED CT HPV in female (SNOMED CT :130359969 ) 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 ; Recorder: Karina Encinas RN; Confirmation: Confirmed ; Classification: Medical ; Code: 348594511 ; Contributor System: PowerChart ; Last Updated: [...] Encinas RN - 02/24/2023 17:55 EDT Normal [facility] Hospital Encounteron 023 Hospital Encounter [id number] Corey Perla 1990 F Date Provider Department Center 02/24/2023 [id number] OCAMPO [facility] RAD ON None Family History Problem Relation Age of Onset Stroke Mother Multiple sclerosis Mother Diabetes Mother Cervical cancer Mother Breast cancer Mother Breast cancer Maternal Grandmother Breast cancer Paternal Grandmother Colon cancer Neg Hx Ovarian cancer Neg Hx Family Status - Relation Status Age at Mother Alive Maternal Grandmother Paternal Grandmother Neg Hx Normal [facility] Progress Noteon 02-24-2023 Progress Note RADIATION ONCOLOGY FOLLOW UP PATIENT: Corey Perla DATE OF SERVICE: 02/24/2023 : 1990 AGE: 32 y.o. PRIMARY SITE AND HISTOPATHOLOGY: Cervical cancer Problem List Items Addressed This Visit None HISTORY OF PRESENT ILLNESS: PRIMARY SITE: pT1b3, G1 adenocarcinoma of the cervix. STAGE: IB2 T1b2 N0 M0?Clone Stage? TREATMENT DATES: 02/03/2023 - 02/24/2023 (21 days); On weekly cisplatin in [place]. SYSTEMS Weight w/Previous: Weight 117.1 pounds 02/24/23 [...] even with rest periods and earlier bedtime DOCUMENT PREPARATION SPECIALIST - Acute: None Anorexia: 2 - Loss of appetite but able to eat smaller portions of food and/or liquids Larynx - Acute: None Mucous Membrane - Acute: None Pharynx & Esophagus - Acute: None Lung - Acute: None Skin - Acute: 0 - No slubber frame changer baseline Other: The patient is using coconut [...] not clean. The patient was at [facility] for her daily radiation treatment. The [...] the answering service to speak with the environmental journalist physician regarding the patient current condition. Dr. [...] leaving t (more content not included)... Normal [facility] 02-24-2023 Appearance, U Clear Normal [facility] Comment on above: Performed By: #### 1 [id number] #### [facility] Laboratory Services [address] [place] [phone] Crankshaft Straightener: Edison Dasilva MD Bilirubin, U Negative Normal Negative [facility] Comment on above: Performed By: #### 1 47251 #### [facility] Laboratory Services [address] [place] [phone] Crankshaft Straightener: Edison Dasilva MD Blood, U Negative Normal Negative [facility] Comment on above: Performed By: #### 1 [id number] #### [facility] Services [address] [place] [address] Crankshaft Straightener: Edison Dasilva MD Color, U Yellow Normal [facility] Comment on above: Performed By: #### 1 [id number] #### [facility] Laboratory Services [address] [place] [phone] Crankshaft Straightener: Edison Dasilva MD Glucose Qual, U Negative Normal Negative [facility] Comment on above: Performed By: #### 1 [id number] #### [facility] Laboratory Services [address] [place] [address] Crankshaft Straightener: Edison Dasilva MD Ketones, U Negative Normal Negative [facility] Comment on above: Performed By: #### 1 [id number] #### [facility] Laboratory Services [address] [place] [address] Crankshaft Straightener: Edison Dasilva MD Leukocyte Esterase, U Small Abnormal Negative [facility] Comment on above: Performed By: #### 1 [id number] #### [facility] Laboratory Services [address] [place] [address] Crankshaft Straightener: Edison Dasilva MD Mucous, U Few Normal [facility] Comment on above: Performed By: #### 1 [id number] #### [facility] Laboratory Services [address] [place] [address] Crankshaft Straightener: Edison Dasilva MD Nitrite, U Negative Normal Negative [facility] Comment on above: Performed By: #### 1 [id number] #### [facility] Laboratory Services [address] [place] [address] Crankshaft Straightener: Edison Dasilva MD Non-Squamous Epithelial, U <1 Normal [facility] Comment on above: Performed By: #### 1 01703 #### [facility] Laboratory Services [address] [place] [address] Crankshaft Straightener: Edison Dasilva MD pH, U 6.5 Normal 4.5-8.0 [facility] Comment on above: Performed By: #### 1 70860 #### [facility] Laboratory Services [address] [place] [address] Crankshaft Straightener: Edison Dasilva MD Protein, U 100 mg/dl Abnormal Negative [facility] Comment on above: Performed By: #### 1 [id number] #### [facility] Laboratory Services [address] [place] [address] Crankshaft Straightener: Edison Dasilva MD RBC/HPF, U <1 Normal 0-3 [facility] Comment on above: Performed By: #### 1 09965 #### [facility] Laboratory Services [address] [place] [phone] Crankshaft Straightener: Edison Dasilva MD Specific [place], U 1.025 Normal 1.001-1.035 [facility] Comment on above: Performed By: #### 1 [id number] #### [facility] Laboratory Services [address] [place] [address] Crankshaft Straightener: Edison Dasilva MD Squamous Epithelial Cells, U 2 #/HPF Normal [facility] Comment on above: Performed By: #### 1 59824 #### [facility] Laboratory Services [address] [place] [address] Crankshaft Straightener: Edison Dasilva MD U MICRO Indicated Normal [facility] Comment on above: Performed By: #### 1 [id number] #### [facility] Laboratory Services [address] [place] [address] Crankshaft Straightener: Edison Dasilva MD U WBC CLUMPS Present Abnormal [facility] Comment on above: Performed By: #### 1 [id number] #### [facility] [facility] [address] [place] [id number] Crankshaft Straightener: Edison Dasilva MD Urobilinogen Qual, U 0.2 EU/dl Normal 0.1-1.0 mg/dl [facility] Comment on above: Result Comment: EU/d l and mg/dl are equivalent units. Performed By: #### [id number] #### [facility] [address] [place] [address] Crankshaft Straightener: Edison Dasilva MD WBC/HPF, U >30 High 0-5 [facility] Comment on above: Performed By: #### 1 [id number] #### [facility] [address] [place] [address] Crankshaft Straightener: Edison Dasilva MD 36on 02-20-2023 36 Repeat venous duplex in [facility] on February 26 @ 1:30 pm ; right before her RTX. Pt notified [facility] 36on 02-19-2023 36 Called patient back in regards to a ultrasound done today. The ultrasound did show a superficial thrombophlebitis in her left antecubital. Instructed patient to take ibuprofen to use heat and elevate arm. We will repeat an ultrasound in 1 week. We will call patient with an appointment. Patient verbalizes understanding. [facility] Bacteria identified Cx Nom ( U)Ordered By: Roque Ruth on 02-19-2023 Interpretation and review of laboratory results [facility] No Panel Informationon 02-19 Superficial thrombophlebitis in [...] Subacute superficial clot in the antecubital fossa [employer] Service Writer Details A villalba scale, color Doppler imaging [...] Cx Nom (U) Normal urogenital laurita present [facility] 36on 02-18-2023 36 Follow up phone call [...] to monitor and follow. FRANKLYN Peres CDE Normal [facility] CBC W Auto Differential pane l (Bld)Ordered By: Nikole Guardado on 02-18-2023 Basophils (Bld) [#/Vol] 0.0 10*3/uL 0.0 - 0.2 10*3/uL [facility] Basophils/100 WBC (Bld) 0.5 % 0.0 - 2.0 % [facility] Eosinophils (Bld) [#/Vol] 0.5 10*3/uL 0.0 - 0.5 10*3/uL [facility] Eosinophils/100 WBC (Bld) 5.7 % 1.0 - 6.0 % [facility] Erythrocyte distribution width (RBC) [Ratio] 12.5 % 11.5 - 14.5 % [facility] Hematocrit (Bld) [Volume fraction] 40.2 % 35.0 - 47.0 % [facility] Hemoglobin (Bld) [Mass/Vol] 13.8 g/dL 11.7 - 16.0 g/dL [facility] Immature granulocytes (Bld) [#/Vol] 0.0 10*3/uL NINF - 0.0 10*3/uL [facility] Immature granulocytes/100 WBC (Bld) 0.3 % High NINF - 0.0 % [facility] Interpretation and review of laboratory results Abnormal [facility] Lymphocytes (Bld) [#/Vol] 0.9 10*3/uL Low 1.0 - 4.3 10*3/uL [facility] Lymphocytes/100 WBC (Bld) 12.0 % Low 20.0 - 40.0 % [facility] MCH (RBC) [Entitic mass] 31.7 pg 26.0 - 34.0 pg [facility] MCHC (RBC) [Mass/Vol] 34.3 % 32.0 - 36.0 % [facility] MCV (RBC) [Entitic vol] 92.4 fL 80.0 - 98.0 fL [facility] Monocytes (Bld) [#/Vol] 0.6 10*3/uL 0.0 - 0.8 10*3/uL [facility] Monocytes/100 WBC (Bld) 7.4 % 2.0 - 10.0 % [facility] Neutrophils (Bld) [#/Vol] 5.8 10*3/uL 1.8 - 7.0 10*3/uL [facility] Neutrophils/100 WBC (Bld) 74.1 % 40.0 - 80.0 % [facility] Platelet mean volume (Bld) [Entitic vol] 8.8 fL 7.4 - 12.4 fL [facility] Comment on above: MPV is a calculated measurement using platelet volume ratio Platelets (Bld) [#/Vol] 248 10*3/uL 140 - 440 10*3/uL [facility] RBC (Bld) [#/Vol] 4.35 10*6/uL 3.8 - 5.20 10*6/uL [facility] WBC (Bld) [#/Vol] 7.8 10*3/uL 3.6 - 10.7 10*3/uL [facility] Comprehensive metabolic 1998 panelon 02-18-2023 Albumin [Mass/Vol] 4.5 g/dL 3.5 - 5.0 g/dL [facility] ALP [Catalytic activity/Vol] 124 U/L 38 - 126 U/L [facility] ALT [Catalytic activity/Vol] 14 U/L 0 - 34 U/L [facility] Anion gap [Moles/Vol] 3 mmol/L 3 - 13 mmol/L [facility] AST [Catalytic activity/Vol] 22 U/L 15 - 46 U/L [facility] Bilirubin [Mass/Vol] 0.3 mg/dL 0.2 - 1.3 mg/dL [facility] Calcium [Mass/Vol] 9.1 mg/dL 8.4 - 10. 4 mg/dL [facility] Chloride [Moles/Vol] 105 mmol/L 98 - 107 mmol/L [facility] CO2 [Moles/Vol] 30 mmol/L 22 - 30 mmol/L [facility] Creatinine [Mass/Vol] 0.65 mg/dL 0.52 - 1.04 mg/dL [facility] GFR/1.73 sq M.predicted MDRD (S/P/Bld) [Vol rate/Area] - PINF [facility] Comment on above: Calculation based on the Chronic Kidney Disease Epidemiology Collaboration (CKD-EPI) equation refit without adjustment for race Glucose [Mass/Vol] 99 mg/dL 70 - 100 mg/dL [facility] Interpretation and review of laboratory results Abnormal [facility] Potassium [Moles/Vol] 3.1 mmol/L Low 3.5 - 5.1 mmol/L [facility] Protein [Mass/Vol] 7.8 g/dL 6.3 - 8.2 g/dL [facility] Sodium [Moles/Vol] 138 mmol/L 135 - 145 mmol/L [facility] Urea nitrogen [Mass/Vol] 8 mg/dL 7 - 17 mg/dL [facility] Magnesiumon 02-18-2023 Magnesium [Mass/Vol] 2.0 mg/dL 1.6 - 2.3 mg/dL [facility] Magnesium [Mass/Vol]on 02-18 Interpretation and review of laboratory results Normal [facility] No Panel Informationon 02-18 [facility] Progress Noteon 02-18-2023 Progress Note ARRIVAL NOTE INFUSIO N Patient is here for chemotherapy and lab draw Labs were drawn via peripheral IV 1135 Spoke with Melissa at Dr. Goldsmith's office. Patient continues to have pelvic pressure, difficulty urinating and emptying bladder. Urinalysis was obtained yesterday. Call placed to lab and specimen did not reflex to culture. If dr would like a culture, it will need to be ordered. Notified that potassium is 3.1. She is taking PO potassium at home as prescribed. Awaiting a returned call back. 1205 Edwige Xiong HEAD REFRIGERATION ENGINEER is placing order for culture of urine. [...] up with Dr. Parham's office regarding scheduling. [facility] 36on 02-17-2023 36 Pt was on her way to radiation. States that her left arm above the IV site that was used last week for chemotherapy is tender/painful to touch. The arm is not red or swollen and not warm to touch. Call placed to Edwige Xiong. Edwige left for the day. Spoke to Wolfgang. Instructed to send a staff message to Edwige since the Pt is coming back tomorrow. Will send a staff message to Edwige . Normal [facility] 36 Pt. Here for OTV and c/o inability to empty bladder and dysuria. Dr. Ocampo would like a UA with reflex to culture. Order routed to physician for approval. [facility] 36on 02-12-2023 36 Pt missed a call. Informed her of the prn hydration plans and oral potassium called in yesterday. [facility] 36on 02-11-2023 36 Pt potassium is 3.1 today. Amisha to give 20 at infusion today. Call in 20 meq of oral potassium daily. Normal [facility] CBC W Auto Differential pane l (Bld)Ordered By: Richelle Tyler on 02-11-2023 Basophils (Bld) [#/Vol] 0.0 10*3/uL 0.0 - 0.2 10*3/uL [facility] Basophils/100 WBC (Bld) 0.6 % 0.0 - 2.0 % [facility] Eosinophils (Bld) [#/Vol] 0.3 10*3/uL 0.0 - 0.5 10*3/uL [facility] Eosinophils/100 WBC (Bld) 6.3 % High 1.0 - 6.0 % [facility] Erythrocyte distribution width (RBC) [Ratio] 12.3 % 11.5 - 14.5 % [facility] Hematocrit (Bld) [Volume fraction] 41.9 % 35.0 - 47.0 % [facility] Hemoglobin (Bld) [Mass/Vol] 14.5 g/dL 11.7 - 16.0 g/dL [facility] Immature granulocytes (Bld) [#/Vol] 0.0 10*3/uL NINF - 0.0 10*3/uL [facility] Immature granulocytes/100 WBC (Bld) 0.4 % High [facility] - [facility] Interpretation and review of laboratory results Abnormal [facility] Lymphocytes (Bld) [#/Vol] 0.9 10*3/uL Low 1.0 - 4.3 10*3/uL [facility] Lymphocytes/100 WBC (Bld) 16.0 % Low 20.0 - 40.0 % [facility] MCH (RBC) [Entitic mass] 31.7 pg 26.0 - 34.0 pg [facility] MCHC (RBC) [Mass/Vol] 34.6 % 32.0 - 36.0 % [facility] MCV (RBC) [Entitic vol] 91.5 fL 80.0 - 98.0 fL [facility] Monocytes (Bld) [#/Vol] 0.4 10*3/uL 0.0 - 0.8 10*3/uL [facility] Monocytes/100 WBC (Bld) 7.7 % 2.0 - 10.0 % [facility] Neutrophils (Bld) [#/Vol] 3.8 10*3/uL 1.8 - 7.0 10*3/uL [facility] Neutrophils/100 WBC (Bld) 69.0 % 40.0 - 80.0 % [facility] Platelet mean volume (Bld) [Entitic vol] 8.9 fL 7.4 - 12.4 fL [facility] Comment on above: MPV is a calculated measurement using platelet volume ratio Platelets (Bld) [#/Vol] 420 10*3/uL 140 - 440 10*3/uL [facility] RBC (Bld) [#/Vol] 4.58 10*6/uL 3.8 - 5.20 10*6/uL [facility] WBC (Bld) [#/Vol] 5.4 10*3/uL 3.6 - 10.7 10*3/uL [facility] Comprehensive metabolic 1998 panelon 02-11-2023 Albumin [Mass/Vol] 5.0 g/dL 3.5 - 5.0 g/dL [facility] ALP [Catalytic activity/Vol] 125 U/L 38 - 126 U/L [facility] ALT [Catalytic activity/Vol] 14 U/L 0 - 34 U/L [facility] Anion gap [Moles/Vol] 6 mmol/L 3 - 13 mmol/L [facility] AST [Catalytic activity/Vol] 21 U/L 15 - 46 U/L [facility] Bilirubin [Mass/Vol] 0.4 mg/dL 0.2 - 1.3 mg/dL [facility] Calcium [Mass/Vol] 9.3 mg/dL 8.4 - 10. 4 mg/dL [facility] Chloride [Moles/Vol] 106 mmol/L 98 - 107 mmol/L [facility] CO2 [Moles/Vol] 28 mmol/L 22 - 30 mmol/L [facility] Creatinine [Mass/Vol] 0.69 mg/dL 0.52 - 1.04 mg/dL [facility] GFR/1.73 sq M.predicted MDRD (S/P/Bld) [Vol rate/Area] - PINF [facility] Comment on above: Calculation based on the Chronic Kidney Disease Epidemiology Collaboration (CKD-EPI) equation refit without adjustment for race Glucose [Mass/Vol] 107 mg/dL High 70 - 100 mg/dL [facility] Interpretation and review of laboratory results Abnormal [facility] Potassium [Moles/Vol] 3.1 mmol/L Low 3.5 - 5.1 mmol/L [facility] Protein [Mass/Vol] 8.2 g/dL 6.3 - 8.2 g/dL [facility] Sodium [Moles/Vol] 139 mmol/L 135 - 145 mmol/L [facility] Urea nitrogen [Mass/Vol] 10 mg/dL 7 - 17 mg/dL [facility] Laboratory - Chemistry and C hemistry - challengeon 02-11-2023 Magnesium [Mass/Vol] 2.1 mg/dL 1.6 - 2.3 mg/dL [facility] Magnesium [Mass/Vol]on 02-11 Interpretation and review of laboratory results Normal [facility] Progress Noteon 02-11-2023 Progress Note ARRIVAL NOTE INFUSIO N Patient is here for chemotherapy and lab draw Labs were drawn via peripheral IV 1020 Per Edwige Xiong HEAD REFRIGERATION ENGINEER, give KCl 10 meq in pre hydration [...] for diarrhea and reinforced use of antiemetics. [facility] 36on 02-07-2023 36 This worker received patient's [facility] glenys application from front office representative at [facility]. Reached out to patient on this date to assist patient with completing the application over the phone. This worker faxed the application to the [facility] [place] [facility] at fax # [phone]. No other needs reported at this time. Patient has this worker's contact information and voices understanding to reach out if supportive care needs or questions arise. [facility] 36on 02-06-2023 36 Reached out to patient on this date via phone to follow up regarding the [facility] [place] [facility] glenys application this worker provided to patient previously. Patient states she has the application completed she just has not had a chance to submit it yet. Encouraged patient to bring the completed application to [facility] if she would like assistance submitting it. Notified front office representative, Leonela Tong that patient may be bringing an application for this worker. [facility] PATINSon 02-04-2023 PATINS Scurry Instant Breakfast when decreased appetite [facility] Progress Noteon 02-04-2023 Progress Note ARRIVAL NOTE [...] signed. Patient has January and February calendar. [place] [address]on 02-03-2023 36 Request for medication refill pended and routed to physician for approval. [place] [address]on 01-22-2023 36 Received return call from patient on this date. Notified patient that the gas gift card and [place] application this worker mailed to patient were returned to sender. The plan is patient will crop picker the gift card and [place] application from [facility] when she is there for a radiation appointment on 01/30/23. Patient voices understanding to reach out if additional supportive care needs or questions arise. [facility] 36 The [place] application and gas gift card this worker mailed to patient were returned to sender. This worker reached out to patient on this date to let her know the mailing was returned to this worker and to discuss another plan to get the mailing to patient. No answer. Left voicemail requesting return call. [place] [address]on 01-21-2023 36 Spoke to patient and reviewed calendar of appointments. She is aware that her chemo will start on 02/04/23@10 am. Will mail calendar and she is aware that she can also obtain a copy at her infusion appointment. Encouraged to call with questions or issues. [facility] CT SIMULATION WO CONTRAST - RADIATION ONCOLOGYon [...] Electronically Signed Date/Time: 01/19/2023 4:08 PM EDT [facility] 36on 01-10-2023 36 Reached out to patient on this date via phone. Introduced self and role. 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 Currently patient is not working because she had a recent surgery and she will be undergoing treatments for her cancer diagnosis. Patient states usually she lives with her parents but right now she is staying with her significant other because he lives closer to [facility], where patient will be receiving daily treatments. Patient states her significant other's address is still about 30 minutes away from [facility] so patient is concerned about the cost of gas getting to and from treatments. Provided education on the [facility] glenys application patient can complete [...] other's address (where she is currently staying) [place], [place] [address] [place] [address]. Application and gift card mailed. No other needs reported at this time. Patient has this worker's contact information and voices understanding to reach out if supportive care needs or questions arise. [facility] 36on 01-07-2023 36 Reached out to patient who had some financial concerns. She states that the only concern she has at this time is paying for gasoline to get her back and forth to appointments. Will continue to follow. [facility] 36on 01-02-2023 36 Approved Dilaudid, 4 mg oral every four hours using [employer] verification system. [facility] [address] Dr. Ocampo assesse d the patient during a new consult appointment. Dr. Ocampo gave a verbal order for Dilaudid 4mg every 4 hours as needed for severe pain and Zofran 8mg 1 hour prior to radiation and 6 hours after radiation. Request for medication fill pended and routed to physician for approval. [facility] Hospital Encounteron 023 Hospital Encounter [id number] Corey Perla 1990 F Date Provider Department Center 01/02/2023 [id number] VICENTE [facility] RAD ON None Family History Problem Relation Age of Onset Stroke Mother Multiple sclerosis Mother Diabetes Mother Cervical cancer Mother Breast cancer Mother Breast cancer Maternal Grandmother Breast cancer Paternal Grandmother Colon cancer Neg Hx Ovarian cancer Neg Hx Family Status - Relation Status Age at Mother Alive Maternal Grandmother Paternal Grandmother Neg Hx Level of Service:94346 [place] OFFICE/OUTPATIENT NEW HIGH MDM 60-74 MINUTES Reason for Visit and Comments: Consult [484] [facility] Nursing Noteon 01-02-2023 Nursing Note The patient is here at [place] with her boyfriend for a new consult [...] patient resource guide. The patient verbalized understanding. [facility] Nursing Note Dr. Ocampo reviewe d consent with the patient. The patient signed consent. The RN signed as a witness. The RN gave and reviewed skin care instructions with the patient. The patient verbalized understanding. [facility] ADDENDUMNOTEon 01-01-2023 ADDENDUMNOTE Addended by: MELISSA ZEPEDA on: 01/01/2023 12:01 PM Modules accepted: Orders [facility] Office Visiton 01-01-2023 Follow-up visit [id number] Corey Perla 1990 F Date Provider Department Center 01/01/2023 [id number] DE LA ROSA [facility] COORDINATOR None Family History Problem Relation Age of Onset Stroke Mother Multiple sclerosis Mother Diabetes Mother Cervical cancer Mother Breast cancer Maternal Grandmother Breast cancer Paternal Grandmother Colon cancer Neg Hx Ovarian cancer Neg Hx Family Status - Relation Status Age at Mother Alive Maternal Grandmother Paternal Grandmother Neg Hx Level of Service:23187 [place] POSTOP FOLLOW UP VISIT RELATED TO ORIGINAL PX Reason for Visit and Comments: Post-op Visit [559] [facility] Progress Noteon 01-01-2023 Progress Note Postop visit [...] Pelvic Nodes Examined 10 Number of Pelvic [place] Nodes Examined 8 Total Number of Para-aortic [...] heat pad for the hematoma and continued hdoq-tuo-eexyquz medicine. We will also recommend stopping the Eliquis. Normal [facility] Progress Note Pt educated on cisplatin and radiation. Went over nausea/vomiting and calling in Adreal/compazine to [facility] in [place]. Pt informed of cisplatin being hard on [...] chemo calendar to pt once all scheduled. [facility] 36on 12-26-2022 36 Patient back patient is [...] days. OAR[facility] report ran. Patient verbalizes understanding [place] [address] Patients mother called in states her daughter is still having a lot of pain and she is out of pain medication and needs a refill she [facility] 36on 12-24-[address] scan was done at [facility], Ct is now in PACS. [place] [address] Called pt to let her know she has an appt this am at 1030. Pt verbalized understanding. [place] [address] Name of caller requesting page:Radha Phone Number of caller: [phone] Facility requesting page: [facility] Reason for Page: Dr jl Sigala Request from Dr Marshall Provider paged: Dr Breonna [facility] Name of paged provider: Tari Parham and Agus Time Page was sent or provider contacted: 2:49 am Page Content: Radha from [facility] for pt Kameron Perla [birth year][address] jl Sigala Request from Dr Marshall [facility] Absolute lymphocyte countOrd ered By: Dr. Marshall on 12-24-2022 Lymphocytes Auto (Unsp spec) [#/Vol] 2.21 10*3/uL 0.83-4.51 [facility] Basophil percentageOrdered B y: Dr. Marshall on 12-24-2022 Basophil percentage 0 SEEN /hpf 0-5 [facility] Lactate [Moles/Vol] 0.9 mmol/L 0.4-2.0 [facility] Basophils/100 WBC (Bld) 0.5 % 0-1 [facility] Bilirubin [Mass/Vol] 0.90 mg/dL 0.20-1.00 [facility] Comment on above: For patients on eltr ombopag therapy, use of Dimension [place] TBIL is not recommended. Chloride [Moles/Vol] 93 mmol/L 98-107 [facility] Eosinophils/100 WBC (Bld) 1.1 % 0-5 [facility] Glucose [Mass/Vol] 119 mg/dL 74-106 [facility] Comment on above: Fasting Glucose resu lt from 100 to 125 mg/dL suggests IMPAIRED HOMEOSTASIS per A.D.A. criteria. Neutrophils (Bld) [#/Vol] 18.3 10*3/uL 2.0-7.7 [facility] Neutrophils/100 WBC (Bld) 78.9 % 47-70 [facility] Potassium [Moles/Vol] 3.5 mmol/L 3.5-5.1 [facility] Protein [Mass/Vol] 8.6 g/dL 6.4-8.2 [facility] Sodium [Moles/Vol] 132 mmol/L 136-145 [facility] WBC (Bld) [#/Vol] 23.2 10*3/uL 4.4-11.0 [facility] Bilirubin Test strip Ql (U)O rdered By: Dr. Marshall on 12-24-2022 Bilirubin Ql (U) Negative Negative [facility] Blood erythrocytes count (nu mber/volume)Ordered By: Dr. Marshall on 12-24-2022 RBC (Bld) [#/Vol] 3.87 10*6/uL 4.2-5.4 [facility] Blood hemoglobin measurement (mass/volume)Ordered By: Dr. Marshall on 12-24-2022 Hemoglobin (Bld) [Mass/Vol] 12.4 g/dL 12.0-15.0 [facility] Blood lymphocytes/100 leukoc ytesOrdered By: Dr. Marshall on 12-24-2022 Lymphocytes/100 WBC (Bld) 9.5 % 19-41 [facility] Blood manual differential co mment interpretation (narrative result)Ordered By: Dr. Marshall on 12-24-2022 Manual differential comment Shahram (Bld) [Interp] SCANNED [facility] Blood monocytes/100 leukocyt esOrdered By: Dr. Marshall on 12-24-2022 Monocytes/100 WBC (Bld) 9.2 % 0-10 [facility] Blood platelet adequacy dete ction by light microscopyOrdered By: Dr. Marshall on 12-24-2022 Platelets LM Ql (Bld) MOD INC ADEQ [facility] Blood platelet mean volumeOr dered By: Dr. Marshall on 12-24-2022 Platelet mean volume (Bld) [Entitic vol] 9.5 fL 6.2-12.0 [facility] Determination of erythrocyte mean corpuscular volume (MCV)Ordered By: Dr. Marshall on 12-24-2022 MCV (RBC) [Entitic vol] 91.7 fL 81-99 [facility] Hematocrit Auto (Bld) [Volum e fraction]Ordered By: Dr. Marshall on 12-24-2022 Hematocrit (Bld) [Volume fraction] 35.5 % 37-47 [facility] Ketones Test strip Ql (U)Ord ered By: Dr. Marshall on 12-24-2022 Ketones Ql (U) 150 mg/dl Negative [facility] Comment on above: CRITICAL VALUE VERIF IED. CALLED TO Zuleika MONACO RN ER12/24/22 0113 Gera Bragg.RESULTS READ BACK BY SAME. CRITICAL VALUE *H Laboratory - Chemistry and C hemistry - challengeOrdered By: Dr. Marshall on 12-24-2022 ALP [Catalytic activity/Vol] 110 U/L 45-117 [facility] ALT [Catalytic activity/Vol] 16 U/L 13-56 [facility] CO2 [Moles/Vol] 18.0 mmol/L 21.0-32.0 [facility] Globulin (S) [Mass/Vol] 4.6 g/dL 2.2-4.2 [facility] Lipase [Catalytic activity/Vol] 51 U/L 73-393 [facility] Urea nitrogen/Creatinine [Mass ratio] 19.5 mg/mg 10-20 [facility] Laboratory - Hematology and Cell countsOrdered By: Dr. Marshall on 12-24-2022 Erythrocyte distribution width (RBC) [Entitic vol] 42.1 fL 35.1-43.9 [facility] Erythrocyte distribution width (RBC) [Ratio] 12.8 % 11.6-14.6 [facility] Immature granulocytes/100 WBC (Bld) 0.800 % 0.0-0.9 [facility] Comment on above: IG% - Immature Granu locytes (promyelocytes, myelocytes and metamyelocytes) > 1% indicates that a LEFT SHIFT is Present. MCH (RBC) [Entitic mass] 32.0 pg 27.0-32.0 [facility] Nucleated RBC/100 WBC (Bld) [Ratio] 0 % 0-5 [facility] MCHC Auto (RBC) [Mass/Vol]Or dered By: Dr. Marshall on 12-24-2022 MCHC (RBC) [Mass/Vol] 34.9 g/dL 32-36 [facility] Mucus LM Ql (Urine sed)Order ed By: Dr. Marshall on 12-24-2022 Mucus Ql (Urine sed) 0 SEEN /hpf [facility] Nitrite Test strip Ql (U)Ord ered By: Dr. Marshall on 12-24-2022 Nitrite Ql (U) Negative Negative [facility] No Panel InformationOrdered By: Dr. Marshall on 12-24-2022 Estimated Creatinine Clearance Calc 125.69 ml/min [facility] Estimated GFR (MDRD) Amer 161 mL/min >60 [facility] Comment on above: GFR Calc Estimated GFR (MDRD) Non-Af Amer 133 mL/min >60 [facility] Comment on above: Non- GFR Calc Office Visiton 12-24-2022 Follow-up visit [id number] Corey Perla 1990 F Date Provider Department Center 12/24/2022 [id number] GONZALES [facility] ACT[facility] COORDINATOR None Family History Problem Relation Age of Onset Stroke Mother Multiple sclerosis Mother Diabetes Mother Cervical cancer Mother Breast cancer Maternal Grandmother Breast cancer Paternal Grandmother Colon cancer Neg Hx Ovarian cancer Neg Hx Family Status - Relation Status Age at Mother Alive Maternal Grandmother Paternal Grandmother Neg Hx Level of Service:[id number] [place] POSTOP FOLLOW UP VISIT RELATED TO ORIGINAL PX Reason for Visit and Comments: Follow-up [614365] - ER follow up for RLQ pain, imaging was preformed and in pacs Normal [facility] Platelets bldOrdered By: Dr. Marshall on 12-24-2022 Platelets (Bld) [#/Vol] 582 10*3/uL 150-450 [facility] Progress Noteon 12-24-2022 Progress Note Chief Complaint [...] NODE ROBOTIC (XI) LAPAROSCOPY PELVIC LYMPHADENECTOMY WITH KUSUM-AORTIC SAMPLING on 12/17/22 and final pathology showed: [...] NODE ROBOTIC (XI) LAPAROSCOPY PELVIC LYMPHADENECTOMY WITH KUSUM-AORTIC SAMPLING for Malignant neoplasm of endocervix. Doing [...] on 01/01/[address] De La Rosa. [facility] Protein Test strip Ql (U)Ord ered By: Dr. Marshall on 12-24-2022 Protein Ql (U) 30 mg/dl Negative [facility] Review by pathologistOrdered By: Dr. Marshall on 12-24-2022 Pathologist review Shahram (Unsp spec) [Interp] May foll [facility] Serum or plasma albumin haydee urement (mass/volume)Ordered By: Dr. Marshall on 12-24-2022 Albumin [Mass/Vol] 4.0 g/dL 3.2-5.0 [facility] Serum or plasma albumin/glob ulin mass ratioOrdered By: Dr. Marshall on 12-24-2022 Albumin/Globulin [Mass ratio] 0.9 {ratio} 0.9-2.4 [facility] Serum or plasma calcium haydee urement (mass/volume)Ordered By: Dr. Marshall on 12-24-2022 Calcium [Mass/Vol] 9.9 mg/dL 8.5-10.1 [facility] Serum or plasma creatinine m easurement (mass/volume)Ordered By: Dr. Marshall on 12-24-2022 Creatinine [Mass/Vol] 0.56 mg/dL 0.55-1.02 [facility] Comment on above: The validity of the calculated GFR & GFRAA in patients over 70 years has not been determined. Clinical correlation is essential. Serum or plasma urea nitroge n measurement (mass/volume)Ordered By: Dr. Marshall on 12-24-2022 Urea nitrogen [Mass/Vol] 11 mg/dL 7-18 [facility] Squamous epithelial cells de tection in urine sediment by light microscopyOrdered By: Dr. Marshall on 12-24-2022 Epithelial cells.squamous LM Ql (Urine sed) 0-5 SEEN /hpf 5-10 [facility] Thin prep Papanicolaou smear with manual screeningOrdered By: Dr. Marshall on 12-24-2022 Thin prep Papanicolaou smear with manual screening 17 U/L 15-37 [facility] Thin prep Papanicolaou smear with manual screening 21 5-15 [facility] Urine blood detectionOrdered By: Dr. Marshall on 12-24-2022 RBC Ql (U) 10 /ul Negative [facility] RBC Ql (U) 0 SEEN /hpf 0-5 [facility] Urine clarityOrdered By: Dr. Marshall on 12-24-2022 Clarity (U) Clear Clear [facility] Urine color determinationOrd ered By: Dr. Marshall on 12-24-2022 Color (U) Yellow Yellow [facility] Urine glucose detectionOrder ed By: Dr. Marshall on 12-24-2022 Glucose Ql (U) Normal mg/dl Normal [facility] Urine leukocyte esterase det ection by dipstickOrdered By: Dr. Marshall on 12-24-2022 Leukocyte esterase Test strip Ql (U) Negative Negative [facility] Urine pHOrdered By: Dr. Ewa willams on 12-24-2022 pH (U) 5.0 [pH] 5.0 - 8.0 [facility] Urine sediment bacteria coun t by microscopy (number/high power field)Ordered By: Dr. Marshall on 12-24-2022 Bacteria LM.HPF (Urine sed) [#/Area] 1 /[HPF] None Seen [facility] Urine specific gravity measu rementOrdered By: Dr. Marshall on 12-24-2022 Specific gravity (U) [Rel density] 1.025 1.002-1.030 [facility] Urobilinogen Auto test strip Ql (U)Ordered By: Dr. Marshall on 12-24-2022 Urobilinogen Ql (U) Normal mg/dl Normal [facility] 36on 12-23-2022 36 Called with path report. Also complaining of worsening right sided pain. Is still using Dilaudid [id number]. Recommend that the patient go to the emergency room if she is having increasing pain. I did refill her Dilaudid 2 mg tablets dispense 30 to last for the next 5 days. Normal [facility] 36 Called patient is having right [...] if pain is uncontrollable. Patient verbalizes understanding [facility] 36 Spoke with pt she is uncontrollably crying with rt sided pain. Pt mom states pain not under control. Pt states before she takes dilaudid 2 mg she is 10/10 pain and after dilaudid 8/10 pain. Pt cant rotate motrin and using the 500 mg tylenol. Pt number not working please call moms number at [phone]. Mom would like new pain med called to [facility] in [place]. Normal [facility] 36 Patient's sister is calling on behalf of Corey. They have some post surgery questions. Normal [facility] CARECOORDon 12-20-2022 [facility] DAILY NOTE/UPDATES: Patient remains on H5 due to S/P AMINA-BS 12/17. Clinical updates: Patient on a regular diet. IV pain meds. Discharge plan: Home with mother. Discharge obstacles: None noted. TCC to continue to follow. Normal [facility] [place] Patient did not have a case management associate through her insurance. [employer] asked Patient if she was interested in having one. Patient agreed to case management with Matt, . Matt to contact Patient regarding referral. [facility] Progress Noteon 12-20-2022 Progress Note Patient discussed at morning rounds. Per RN, no mobility needs at this time. Please consult PT/OT if any needs arise. Hyun Dennis, PT, DPT Normal [facility] Progress Note PAGING: The Acute Pain Service providers are available exclusively via [employer]. APS does not utilize pagers. Due to the current environment of [place] [address], PPE was worn for the duration of all face to face encounters including but not limited to an N95 in accordance with [facility] and hospital guidelines. 12/20/2022 Subjective: We have been asked to see this 32 y.o. female for postoperative pain management s/p Radical hysterectomy with bilateral salpingectomy, bilateral pelvic sentinel lymph node biopsy with ICG protocol. Lymphangiography for identification sentinel node, robotic lap pelvic lymphadenectomy with kusum-aortic sampling on 12/17/22. Reviewed PET/CT 12/06/22 TORION, no pages. On arrival, pt lying in [...] PRN. O (more content not included)... Normal [facility] Progress Note - Attestation signed by Fernando De La Rosa MD at 12/20/2022 10:35 AM Patient rounded with residents. Doing well. Pain is getting better controlled. Hopefully discharge later today Please SecureChat the [facility] Traffic Rate Analyst ONC Resident pager for questions or concerns [facility] COORDINATOR-ONC Progress Note Date: 12/20/2022 Time: 6:23 AM Corey Perla 32 y.o. female , POD # [...] 0.5 mg, 0.5 mg, IntraVENous, q4h PRN, Adolfo Love APRN - SENIOR INSIGHT MANAGER INTERNATIONAL, 0.5 mg at 12/20/22 0301 HYDROmorphone (Dilaudid) tablet 2 mg, 2 mg, Oral, q4h PRN OR HYDROmorphone (Dilaudid) tablet 4 mg, 4 mg, Oral, q4h PRN, Adolfo Love APRN - SENIOR INSIGHT MANAGER INTERNATIONAL, 4 mg at 12/20/22 0450 ibuprofen tablet 800 mg, 800 mg, Oral, q8h, Anjelica Cobb MD, 800 mg at 12/19/22 0931 ketamine (Ketalar) 10 mg/mL oral liquid 10 mg, 10 mg, Oral, q6h, Adolfo Love APRN - DANN, 10 mg at 12/19/22 1138 magnesium hydroxide (Milk of Magnesia) 400 MG/5ML suspension 30 mL, 30 mL, Oral, Daily PRN, Noble Wilburn, DO methocarbamol (Robaxin) tablet 1,000 mg, 1,000 mg, Oral, q8h PRN, Adolfo Love APRN - SENIOR INSIGHT MANAGER INTERNATIONAL, 1,000 mg at 12/19/22 1138 ondansetron ODT (Zofran-ODT) disintegrating tablet 4 mg, 4 mg, Oral, q8h PRN, 4 mg at 12/19/22 2228 OR ondansetron (Zofran) injection 4 mg, 4 mg, IntraVENous, q6h PRN, Noble Wilburn, DO, 4 mg at 12/19/22 1613 senna-docusate sodium (Senokot-S) 8.6-50 MG tablet 2 tablet, 2 tablet, Oral, BID, Noble Wilburn, DO, 2 tablet at 12/19/22 2228 simethicone (Mylicon) chewable tablet 80 mg, 80 mg, Oral, 4x daily PRN, Adolfo Love, DAIJA - SENIOR INSIGHT MANAGER INTERNATIONAL sodium chloride 0.9 % infusion, 5-250 mL/hr, IntraVENous, PRN, Noble Wilburn, DO, Last Rate: 10 mL/hr at 12/17/22 180, 10 mL/hr at 12/17/22 180 sodium chloride 0.9% (NS) flush 10 mL, 10 mL, IntraVENous, 2 times per day, Noble Wilburn, , 10 mL at 12/19/22 2100 sodium chloride 0.9% (NS) flush 10 mL, 10 mL, IntraVENous, PRN, Noble Wilburn DO Diagnostics: No results found. Labs: Admission on 12/17/2022 Component Date Value Ref Range Status Preg Test, Ur 12/17/2022 Negative Negative Final POSITIVE QC 12/17/2022 Pass Final NEGATIVE QC 12/17/2022 Pass Final HCG LOT NUMBER 12/17/2022 [id number] Final Auto WBC 12/17/2022 10.0 3.6 - [...] Final Plate (more content not included)... Normal [facility] CARECOORDon 12-19-2022 [place] Care Managment Initial Assessment Date: 12/19/2022 Patient Name: Corey Perla : 1990 Patient Information Source of Information: Patient Cognition/Language: WFL - Within Functional Limits Permission given to speak with patient marketing development representative/caregi mazin as indicated: Confirmation of Payer with patient/family: Yes Payer Name: [place] Medicaid : No Confirmation of Primary Care Physician: No [...] Daily Living Prescription Coverage: Yes Pharmacy Used: [facility] Medication Management: Independent Transportation/Shoppi ng: Independent Transportation [...] will transport. TCC will continue to follow. MELISSA SPANGLER RN [facility] CAREPLNon 12-19-2022 CAREPLN The patient is Moderately [...] the patient on a regular basis. Normal [facility] CAREPLN The patient is Moderately Stable - Low risk of patient condition declining or worsening The patient's goals for the shift include pain control The clinical goals for the shift include pain control Over the shift, the patient made some progress towards goals. [facility] Consulton 12-19-2022 Consult Department of Psychiatry Attending [...] reported that she was briefly in counseling ([employer]), and that she feels doctor prescribed too [...] family and her partner. 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 Current Medications Current Facility-Administered Medications: acetaminophen (Tylenol) tablet 650 mg, 650 mg, Oral, Q4H, Adolfo Love APRN - DANN, 650 mg at 12/19/22352 enoxaparin (Lovenox) syringe 40 mg, 40 mg, SubCUTAneous, Daily, Noble Wilburn DO, 40 mg at 12/18/22826 gabapentin (Neurontin) capsule 300 mg, 300 mg, Oral, Nightly, Adolfo Love APRN - SENIOR INSIGHT MANAGER INTERNATIONAL, 300 mg at 12/18/222036 HYDROmorphone (Dilaudid) injection 0.25 mg, 0.25 mg, IntraVENous, q4h PRN OR HYDROmorphone (Dilaudid) injection 0.5 mg, 0.5 mg, IntraVENous, q4h PRN, Adolfo Love APRN - DANN, 0.5 mg at 12/19/22 0552 HYDROmorphone (Dilaudid) tablet 2 mg, 2 mg, Oral, q4h PRN OR HYDROmorphone (Dilaudid) tablet 4 mg, 4 mg, Oral, q4h PRN, Adolfo Love APRN - DANN, 4 mg at 12/19/22 0353 ibuprofen tablet 800 mg, 800 mg, Oral, q8h, Anjelica Cobb MD, 800 mg at 12/18/22 2345 ketamine (Ketalar) 10 mg/mL oral liquid 10 mg, 10 mg, Oral, q6h, Adolfo Love APRN - DANN, 10 mg at 12/19/22 0509 magnesium hydroxide (Milk of Magnesia) 400 MG/5ML suspension 30 mL, 30 mL, Oral, Daily PRN, Noble Wilburn DO methocarbamol (Robaxin) tablet 1,000 mg, 1,000 mg, Oral, q8h PRN, DAIJA Mcclure CNP, 1,000 mg at 12/19/22 0509 ondansetron ODT (Zofran-ODT) disintegrating tablet 4 mg, 4 mg, Oral, q8h PRN, 4 mg at 12/18/22 1938 OR ondansetron (Zofran) injection 4 mg, 4 mg, IntraVENous, q6h PRN, Noble Wilburn DO senna-docusate sodium (Senokot-S) 8.6-50 MG tablet 2 tablet, 2 tablet, Oral, BID, Noble Wilburn, , 2 tablet at 12/18/222037 simethicone (Mylicon) chewable tablet 80 mg, 80 mg, Oral, PRN, DAIJA Mcclure CNP, 80 mg at 12/18/22 1305 sodium chloride 0.9 % infusion, 5-250 mL/hr, IntraVENous, PRN, Noble Wilburn, , Last Rate: 10 mL/hr at 12/17/22 1803, 10 mL/hr at 12/17/22 180 sodium chloride 0.9% (NS) flush 10 mL, 10 mL, IntraVENous, 2 times per day, Noble Wilburn DO, 10 mL at 12/18/222037 sodium chloride 0.9% (NS) flush 10 mL, 10 mL, IntraVENous, PRN, Noble Wilburn, DO MENTAL STATUS EXAM Mental Status Exam: [...] intervention. No (more content not included)... Normal [facility] Progress Noteon 12-19-2022 Progress Note PAGING: The Acute Pain Service providers are available exclusively via [employer]. APS does not utilize pagers. Due to the current environment of [place] [address], PPE was worn for the duration of all face to face encounters including but not limited to an N95 in accordance with [facility] and hospital guidelines. 12/19/2022 Subjective: We have been asked to see this 32 y.o. female for postoperative pain management s/p Radical hysterectomy with bilateral salpingectomy, bilateral pelvic sentinel lymph node biopsy with ICG protocol. Lymphangiography for identification sentinel node, robotic lap pelvic lymphadenectomy with kusum-aortic sampling on 12/17/22. Reviewed PET/CT 12/06/22 TORION, no pages. On arrival, pt lying in [...] no reported side effects. Discussed with Kat RM: pt reported better pain control with new [...] Adjuvants: 0700 --> 0700 12/17/202212/18 Scheduled APAP 3 (more content not included)... Normal [facility] Progress Note Nutrition rescreen completed. Chart reviewed. Patient to be monitored and followed by the diet commercial technician. Normal [facility] Progress Note - Attestation signed by Fernando De La Rosa MD at 12/19/2022 11:02 AM Patient rounded with residents today. She is doing better. Incision is clean and dry. Did pass her voiding trial. Discussed keeping her bladder empty. We will continue postoperative care [facility] ACTIVITIES COORDINATOR-ONC Progress Note Date: 12/19/2022 Time: 6:14 AM Corey Perla 32 y.o. female , POD # 2 s/p AMINA-BS, R SNLS, L pelvic LNS Please SecureChat the [facility] Traffic Rate Analyst ONC Resident pager for questions or concerns [...] tablet 650 mg, 650 mg, Oral, Q4H, Adolfo Love APRN - SENIOR INSIGHT MANAGER INTERNATIONAL, 650 mg at 12/19/22 0353 enoxaparin (Lovenox) syringe 40 mg, 40 mg, SubCUTAneous, Daily, Noble Wilburn DO, 40 mg at 12/18/22 08 gabapentin (Neurontin) capsule 300 mg, 300 mg, Oral, Nightly, Adolfo Love APRN - SENIOR INSIGHT MANAGER INTERNATIONAL, 300 mg at 12/18/222036 HYDROmorphone (Dilaudid) injection 0.25 mg, 0.25 mg, IntraVENous, q4h PRN OR HYDROmorphone (Dilaudid) injection 0.5 mg, 0.5 mg, IntraVENous, q4h PRN, Adolfo Love APRN - SENIOR INSIGHT MANAGER INTERNATIONAL, 0.5 mg at 12/19/22 0552 HYDROmorphone (Dilaudid) tablet 2 mg, 2 mg, Oral, q4h PRN OR HYDROmorphone (Dilaudid) tablet 4 mg, 4 mg, Oral, q4h PRN, Adolfo Love APRN - DANN, 4 mg at 12/19/22 0353 ibuprofen tablet 800 mg, 800 mg, Oral, q8h, Anjelica Cobb MD, 800 mg at 12/18/22 2345 ketamine (Ketalar) 10 mg/mL oral liquid 10 mg, 10 mg, Oral, q6h, Adolfo Love APRN - DANN, 10 mg at 12/19/22 0509 magnesium hydroxide (Milk of Magnesia) 400 MG/5ML suspension 30 mL, 30 mL, Oral, Daily PRN, Noble Wilburn DO methocarbamol (Robaxin) tablet 1,000 mg, 1,000 mg, Oral, q8h PRN, Adolfo Love APRN - DANN, 1,000 mg at 12/19/22 0509 ondansetron ODT (Zofran-ODT) disintegrating tablet 4 mg, 4 mg, Oral, q8h PRN, 4 mg at 12/18/22 1938 OR ondansetron (Zofran) injection 4 mg, 4 mg, IntraVENous, q6h PRN, Noble Wilburn DO senna-docusate sodium (Senokot-S) 8.6-50 MG tablet 2 tablet, 2 tablet, Oral, BID, Noble Wilburn DO, 2 tablet at 12/18/222037 simethicone (Mylicon) chewable tablet 80 mg, 80 mg, Oral, PRN, Adolfo Love APRN - DANN, 80 mg at 12/18/22 1305 sodium chloride 0.9 % infusion, 5-250 mL/hr, IntraVENous, PRN, Noble Wilburn DO, Last Rate: 10 mL/hr at 12/17/22 180, 10 mL/hr at 12/17/22 180 sodium chloride 0.9% (NS) flush 10 mL, 10 mL, IntraVENous, 2 times per day, Noble Wilburn DO, 10 mL at 12/18/222037 sodium chloride 0.9% (NS) flush 10 mL, 10 mL, IntraVENous, PRN, Noble M Akila, Diagnostics: No results found. Labs: Admission on 12/17/2022 Component Date Value Ref Range Status Preg Test, Ur 12/17/2022 Negative Negative Final POSITIVE QC 12/17/2022 Pass Final NEGATIVE QC 12/17/2022 Pass Final HCG LOT NUMBER 12/17/2022 [id number] Final Auto WBC 12/17/2022 10.0 3.6 - [...] 12/18/2022 9 (more content not included)... Normal [facility] CAREPLNon 12-18-2022 CAREPLN The patient is Moderately [...] pain management recommendation and regular medication administration. [facility] Consulton 12-18-2022 Consult PAGING: The Acute Pain Service providers are available exclusively via [employer]. APS does not utilize pagers. Due to the current environment of [place] [address], PPE was worn for the duration of all face to face encounters including but not limited to an N95 in accordance with [facility] and hospital guidelines. 12/18/2022 Subjective: We have been asked to see this 32 y.o. female for postoperative pain management s/p Radical hysterectomy with bilateral salpingectomy, bilateral pelvic sentinel lymph node biopsy with ICG protocol. Lymphangiography for identification sentinel node, robotic lap pelvic lymphadenectomy with kusum-aortic sampling on 12/17/22. Reviewed PET/CT 12/06/22 NAEON, no pages. On arrival, pt lying in [...] is soft. (more content not included)... Normal [facility] Progress Noteon 12-18-2022 Progress Note - Attestation signed by Fernando De La Rosa MD at 12/18/2022 8:28 AM Patient rounded with residents. Doing well. Having significant incisional pain however the incision is dry and flat. We will continue postoperative care Please SecureChat the [facility] Traffic Rate Analyst ONC Resident pager for questions or concerns PARK ACTIVITIES COORDINATOR-ONC Progress Note Date: 12/18/2022 Time: 6:14 AM [...] Vitals: 12/17/22 1415 12/17/22 1427 12/17/22 1632 12/17/229 BP: 122/63 124/60 116/87 BP Location: Left [...] 1,000 mg, 1,000 mg, Oral, q8h, Noble Wilburn DO, 1,000 mg at 12/18/22 0000 HYDROmorphone (Dilaudid) injection 0.25 mg, 0.25 mg, IntraVENous, q3h PRN OR HYDROmorphone (Dilaudid) injection 0.5 mg, 0.5 mg, IntraVENous, q3h PRN, Noble Wilburn DO, 0.5 mg at 12/18/22 0538 ibuprofen tablet 800 mg, 800 mg, Oral, q8h, Anjelica Cobb MD ketorolac (Toradol) injection 30 mg, 30 mg, IntraVENous, q6h, Noble Wilburn DO, 30 mg at 12/17/22 2226 ondansetron [...] 0.9 % infusion, 5-250 mL/hr, IntraVENous, PRN, Nobel M Akila, DO, Last Rate: 10 mL/hr at 12/17/22 180, 10 mL/hr at 12/17/221802 sodium chloride 0.9% (NS) flush 10 mL, 10 mL, IntraVENous, 2 times per day, Noble M Akila, DO, 10 mL at 12/17/22 194 sodium chloride 0.9% (NS) flush 10 mL, 10 mL, IntraVENous, PRN, Noble M Akila, DO Diagnostics: No results found. Labs: Admission on 12/17/2022 Component Date Value Ref Range Status Preg Test, Ur 12/17/2022 Negative Negative Final POSITIVE QC 12/17/2022 Pass Final NEGATIVE QC 12/17/2022 Pass Final HCG LOT NUMBER 12/17/2022 [id number] Final Auto WBC 12/17/2022 10.0 3.6 - [...] 32 y.o. female , POD #1 s/p AMIAN-BS, R SNLS, L pelvic LNS - Doing [...] lock - Disposition: CCM Please SecureChat the [facility] Traffic Rate Analyst ONC Resident pager for questions or concerns Principal Problem: Malignant neoplasm of (more content not included)... Normal [facility] Nursing Noteon 12-17-2022 Nursing Note Report called to Betty RM, no questions asked. Family at bedside patient in for transport Normal [facility] Nursing Note Family at bedside waiting for bed to be assigned Normal [facility] Nursing Note Family has been updated through the [facility] of patients condition. Patient will be in a bed delay due to room availability at this time. Patient advised when she is moved to another bed space in the PACU, her mother may come back to visit. Patient has been eating crackers and drinking soda. [facility] Op Noteon 12-17-2022 Op Note Date of [...] Metzenbaum scissors. Intra-abdominal expiration was normal the Veer wound retractor was placed followed by the O'Colin-Lokesh'Harvey wound retractor being careful to make sure [...] were clamped cut and tied using curved Trupit's and 0 Vicryl transfixion sutures. The parametrial tissue was coagulated divided using the Enseal device the vaginal cuff some crossclamped with curved Zeppelin sharply divided the radical hysterectomy specimen handed off the field this up was replaced with 0 Vicryl transfixion sutures and the cuff was closed using a running 0 Vicryl [id number]. Another attempt at identifying a left pelvic [...] to the cover room in stable condition. 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 (Active) Specimens ID Source Type Tests Collected By Collected At Frozen? Priority Lab ID 1 Lymph Node, [place], All sites Lymph Node TISSUE EXAM Fernando De La Rosa MD 12/17/22 1034 No Routine Description: Right Pelvic [place] Node 2 Uterus Tissue TISSUE EXAM Fernando De La Rosa MD 12/17/22 1122 No Description: Radical Hysterectomy with Fallopian tubes 3 Lymph Node Lymph Node TISSUE EXAM Fernando De La Rosa MD 12/17/22 1131 No Routine Description: Left Pelvic Lymph Nodes Implants Staff: Park Interpreter: Rukhsana Bronson RN Relief Park Interpreter: Bailee Bailey RN Scrub Person: Ella Stein [...] 12/17/2022 8:56 AM TISSUE EXAM Lymph Node, [place], All sites Pre-op diagnosis: Malignant neoplasm of endocervix (HCC) [C53.0] Collected By: Fernando De La Rosa MD 12/17/2022 10:39 AM Wound Class: Class II: Clean-Contaminated Blood Products: None Prophylactic Antibiotics: Procedure appropriate prophylactic antibiotic(s) given within 1 hour of surgical incision (two hours if receiving Vancomycin or flouroquinolone) [facility] [place] Nursing Noteon 12-11-2022 Nursing Note Charleen at Dr. De La Rosa's office notified that we are in need of the patient's Medicaid hysterectomy/steriliz ation form. [facility] [place] PREPROCINSon 12-11-2022 PREPROCINS No outpatient medications have been marked as taking for the 12/17/22 encounter (Hospital Encounter). Additional Instructions: FURNACE PROCESS SUPERVISOR AND PARKING IN THE MAIN DECK ARE [...] your scheduled surgery time. Please bring your [facility] Surgical folder and medication list with you day of surgery. We encourage you to write down any questions you may have for the surgeon, anesthesiologist, or other members of the surgical team and bring it with you the day of surgery. Please bring photo ID and insurance information. Normal [facility] 36on 12-10-2022 36 Patient notified by phone [facility] [place] 36on 12-09-2022 36 PET scan results discussed. No evidence of metastatic disease. Patient already scheduled for surgery 12/17/2022. Dagny - can you confirm PAT appt with the patient - I can't tell from Omnikles if it is in person or over the phone. Thanks! Normal [facility] Office-Progress Notes-Pr ovideron 11-28-2022 [facility] Office-Progress Notes-Provider Assessment/Plan This Visit Diagnosis 1. Adenocarcinoma of cervix C53.9 plan radical hysterectomy Chief Complaint 2wk post op from D&C hysteroscopy 11/2021 Adenocarcimoma of cervix Adenocarcinoma Stage 1B1 Rj- radical hyst 11/2021. PET scan having in a week and surgery critical access hospital for early DEC History of Present Illness [...] D&C (11/15/2022) Gardasil vaccine series completed (2003) [place] teeth extraction Medications acetaminophen-HYDROco done 325 mg-5 mg oral tablet, 1 tabs, ORAL, S1CMIPC, PRN ibuprofen 600 mg oral tablet, 600 mg= 1 tabs, ORAL, I3IMNUE Nature's Bounty Hair Skin and Nails, 1 tabs, ORAL, DAILY Tylenol 325 mg oral capsule, 650 mg, ORAL, I7IRLRH, PRN Allergies No Known Allergies Social History Alcohol - Denies Alcohol Use Sexual Other contraceptive use: none. Substance Abuse - Denies Substance Abuse Tobacco 10 or more cigarettes (1/2 pack or more)/day in last 30 days Tobacco Use:. Family History Breast cancer..: Grandmother. Cervical cancer..: Mother. Diabetes..: Mother. Normal [facility] Comprehensive Intake - Texto n 11-28-2022 Comprehensive Intake - Text Comprehensive Intake Entered On: 11/28/2022 10:29 EST Performed On: 11/28/2022 10:25 EST by Sudhakar Linn MA Summary Chief Complaint : 2wk post op from D&C hysteroscopy 11/2021 Adenocarcimoma of cervix Adenocarcinoma Stage 1B1 De La Rosa- radical hyst 11/2021. PET scan having in a week and surgery evelyn for early DEC Sudhakar Linn MA - 11/28/2022 10:30 EST Advance Directive : No Bladder Control Issues? : No Urine Leakage? : No Presence or absence of urinary incontinence assessed : Yes CPT-II Medication list doc'd in medical record : Yes Influenza immunization administered or previously received : No Pneumococcal vaccine administered or previously received : No Sudhakar Linn MA - 11/28/2022 10:25 EST Measurements [...] in, 162 cm) Body Mass Index Measured Ukrainian : 23.33 kg/m2 BSA Ukrainian : 1.66 m2 Sudhakar Linn MA 11/28/2022 10:25 EST Vitals Require BP : Yes Systolic Blood Pressure : 100 mmHg Diastolic Blood Pressure : 60 mmHg Mean Arterial Pressure : 73 mmHg Last Systolic BP : less than 130 mmHg Last Diastolic BP : less than 80 mmHg Pain Present : No actual or suspected pain Pain : 0 Pain severity quantified : No pain present Sudhakar Linn MA 11/28/2022 10:25 EST Infection Screening - Ambulatory Exposure AND/OR close contact with a person under investigation or laboratory-confirmed COVID-19 individual within 14 days of symptom onset AND/OR any of the following: : No Do you live/work in a high risk situation (congregated living, hemodialysis, infusion clinic, long-term, assisted living, detention, homeless mcc, etc.)? : No SongriaSudhakar diaz MA 11/28/2022 10:25 EST Depression Screening Is patient currently : None of the Below Feeling Down, Depressed, Hopeless : Not at all Little Interest - Pleasure in Activities : Not at all Initial Depression Screen Score : 0 Depression Screening Score 0 : No Songsusy Sudhakar GUTIERRES 11/28/2022 10:25 EST Falls Risk Assessment Is the patient ambulatory (mobile) : Yes Have you had 2 or more falls in the past year : No Have you had a fall within the past year that has caused an injury : No Patient screen for fall risk : no falls in last year OR 1 fall with no injury in last year SongriaSudhakar diaz MA 11/28/2022 10:25 EST Normal [facility] 36on 11-25-2022 36 PAT by phone 12.11.2022 at 9 am SX: 12.17.2022 AT 9:30 AM ARRIVAL AT 7:30 AM POST OP 12.30.2022 AT 2:30 PM Folder and instructions given. Normal [facility] 36 Patient returned call- notified date/time/location of PET CT scan. Address for [place] given [place] [address] I called [facility] to get in sooner for PET CT but there is not anything available [place] [address] scan schedule d on FridayDec 06 @ 4:00 pm @ [facility]. Attempted to call patient and her voice mail was not set up and I was unable to leave a message [facility] [place] Office Visiton 11-22-2022 Follow-up visit [id number] BabsCorey Machuca 1990 F Date Provider Department Center 11/22/2022 [id number] DE LA ROSA [facility] COORDINATOR None Family History Problem Relation Age of Onset Stroke Mother Multiple sclerosis Mother Diabetes Mother Cervical cancer Mother Breast cancer Maternal Grandmother Breast cancer Paternal Grandmother Colon cancer Neg Hx Ovarian cancer Neg Hx Family Status - Relation Status Age at Mother Alive Maternal Grandmother Paternal Grandmother Neg Hx Level of Service:77234 [place] OFFICE/OUTPATIENT NEW MODERATE MDM 45-59 MINUTES Reason for Visit and Comments: Cervical Cancer [463025] Normal [facility] Phone Msgon 11-21-2022 Phone Msg - From: Hilary Cali To: IDALMIS JIMENEZ; Sent: 11/21/2022 09:29:21 EST Subject: SISTER (ANSHUL) WITH QUESTION'S Actions: Message Caller Name: COREY PERLA; Caller Number: H PATIENTS SISTER (ANSHUL) WITH [...] for the probability of a hysterectomy. Normal [facility] Phone Msg - From: Adele Patton To: IDALMIS JIMENEZ; Sent: 11/21/2022 08:57:03 EST Subject: DR. WHITAKER Caller Name: COREY PERLA; Caller Number: H I called Dr. Whitaker's office, gave them all the information for the patient. I also faxed last office note, surgery op note, and pathology report. They will give her a call and get her schedued Normal [facility] Phone Msg - From: IDALMIS JIMENEZ To: Adele Patton; Sent: 11/21/2022 08:30:36 EST Caller Name: COREY PERLA; Caller Number: H Patient called Path reviewed cancer. She was appropriately tearful- Send to Dr. De La Rosa/Agus Olivas [facility] SURGICAL PATH REPORTon 11-20 SURGICAL PATH REPORT [facility] Department of Pathology [address] [place] [phone] Name: COREY PERLA : 1990 [facility] [id number] Number: Gender Female Locatio ASC : n: Admit 32 years Attending IDALMIS JIMENEZ Age: Provider: Ordering IDALMIS JIMENEZ Provider: Consulti Surgical Pathology Report ng: ACCESSION: COLLECTED DATE/TIME: RECEIVED DATE/TIME: PATHOLOGIST: [id number] 11/15/2022 14:55 EST 11/18/2022 08:18 EST EDISON DASILVA MD Final Diagnosis Report Type: C-1100 (A) ENDOMETRIAL [...] ____ Print 11/21/2022 09:06 EST Number: Date/Time: [facility] Department of Pathology [address] [place] [phone] Name: COREY PERLA : 1990 [facility] [id number] Number: Gender Female Locatio ASC : n: Admit 32 years Attending IDALMIS JIMENEZ Age: Provider: Ordering IDALMIS JIMENEZ Provider: Consulti Surgical Pathology Report ng: ACCESSION: COLLECTED DATE/TIME: RECEIVED DATE/TIME: PATHOLOGIST: [id number] 11/15/2022 14:55 EST 11/18/2022 08:18 EST EDISON [...] specimen is entirely submitted in two cassettes. MP:vcb 11/18/2022 Microscopic Diagnosis NOTE: One or more of the reagents used to perform assays on this specimen MAY have contained components considered to be analyte specific reagents ( ASRs). ASRs have not been cleared or approved by the U.S. Food and Drug Administration. The performance characteristics of these assays have been determined by the Department of Pathology at [facility]. This assay was performed subsequent to the H and E examination. Appropriate positive and negative controls were examined with appropriate reactivity. Codes CPT CODE: 76136 X 2 + 44954 + 63684 X 6 ____ Print 11/21/2022 09:06 EST Number: Date/Time: [facility] Comment on above: Performed By: #### 1 [id number] #### [facility] Laboratory Services [address] [place] [address] Crankshaft Straightener: Edison Dasilva MD Anesthesiaon 11-15-2022 Anesthesia Patient: [...] nausea and vomiting. Postoperative hydration status: euvolemia. [facility] Anesthesia Patient: LIVAN PERLA Age: 32 years Sex: Female : 1990 Associated Diagnoses: None Author: CODY ZAMBRANO MD DIAGNOSIS: HPV Preoperative Information Procedure/ Case: OPERATIVE HYSTEROSCOPY NPO greater than 8 hours. Anesthesia history Patient's history: negative. Review of Systems see H Health Status Allergies: Allergies (1) Active Reaction [...] fauces, uvula visible). \.br\ \.br\Assessment and Plan \.br\[place] Society of Anesthesiologists (ASA) physical status classification: Class II. \.br\Anesthetic Preoperative Plan \.br\Anesthetic technique: General anesthesia. \.br\Maintenance airway: Laryngeal mask airway. \.br\Special monitoring: Standard ASA monitors.. \.br\Risks discussed. \.br\Informed consent: signed by patient. \.br\Notes: ALANA: NO. Betablocker: NONE. Normal [facility] Inpatient Patient Summaryon 11-15-2022 Inpatient Patient Summary [facility] Discharge Instructions [address] [place] [address] \.br\(Patient Copy)\.br\ \.br\ \.br\Name: COREY PERLA : 1990 \.br\Diagnosis: Cervical mass; High risk HPV infection; Post-op pain \.br\ \.br\Allergies: No Known Allergies\.br\ \.br\Registration Date: 11/15/22\.br\\.br\\.b r\ \.br\ Current Date Time: 11/15/2022 16:05:07 \.br\ \.br\Address: [address] [place] [address] \.br\Phone: [phone] \.br\ \.br\Primary Care Provider: \.br\Name: NO FAMILY PHYSICIAN, 837\.br\Phone: \.br\ \.br\Thank you for choosing [facility] for your care. You are very important to us. Our goal is to demonstrate our high quality medical care and provide you with a very good patient experience.\.br\ You may receive a survey about our service. Please take the time to complete the survey and return it so we can continue to enhance our service.\.br\ Thank you again for allowing [facility] to care for your medical needs. If you have any questions about your care or follow up information please contact your doctor.\.br\\.br\Foll ow-up Instructions\.br\\.br \\.br\With: Address: When: \.br\IDALMIS COBB, Radiology, Obstetrics/Gynecology [address] [facility] [address] [place] [address]\.br\ Business (1) In 2 weeks 11/29/2022 \.br\Comments: \.br\Call to schedule Follow up \.br\\.br\Prescriptio ns of Motrin and Percocet sent to [facility] \.br\\.br\\.br\\.br\\ .br\\.br\Medication Information\.br\Only Take The Medicines On [...] r\Patient education materials, if any, will display below\.br\[facility] General Ambulatory Surgery\.br\Adult Home Going Instructions Following [...] prescribed by your care provider\.br\? Only take vmph-kso-gegxdva or prescription medications as directed\.br\? Slowly resume diet\.br\? Activity as directed by your surgeon\.br\? Use extra care climbing stairs or walking with crutches\.br\\.br\If you have questions or problems that seem to be related to the anesthetic, call the hospital at [phone] and ask for the BIN PILER loop puller or anesthesiologist. \.br\Thank you for the privilege [...] incision a (more content not included)... Normal [facility] OR Nursing Record - Main Adele n 11-15-2022 OR Nursing Record - Main OR OR Nursing Record - Main OR Summary Primary Physician: IDALMIS JIMENEZ Finalized Date/Time: 11/15/22 15:58:08 Pt. Name: COREY PERLA/Sex: 1990 Female Med Rec #: [id number] Physician: Financial #: [id number] Pt. Type: A Room/Bed: / Admit/Disch: 11/15/22 11:30:26 - Institution: Transport to OR - Main OR Entry 1 By Radha Singh RN, Date/Time Leaving 11/15/22 14:29:00 Ion RM, Jo Yangop Siderails Up? Yes Report Received From Arlene Spangler RN Last Modified By: Radha Singh RN 11/15/22 14:38:24 Case Times - Main OR Entry 1 Patient In Room Time 11/15/22 14:30:00 Out Room Time 11/15/22 15:36:00 Anesthesia Facility Times Induction Time 11/15/22 14:31:00 Stop Time 11/15/22 15:35:00 [place] Protocol Yes Completed Surgery Start Time 11/15/22 [...] 1 Entry 2 Entry 3 Case Attendee JIMBO ESPINO, IDALMIS ZAMBRANO MD, CODY SANABRIA CRNA, CHAIM Role Performed Surgeon Primary Anesthesiologist Primary Anesthesia Asst/THREAD MACHINE OPERATOR Time In 11/15/22 14:30:00 11/15/22 14:30:00 11/15/22 14:30:00 Time Out 11/15/22 15:36:00 11/15/22 15:36:00 11/15/22 15:36:00 Procedure D and C w Cervical D and C w Cervical D and C w Cervical Leep(None) Leep(None) Leep(None) Last Modified By: Francisco RN, Radha Singh RN, Radha Singh RN, Radha 11/15/22 15:49:20 11/15/22 15:49:20 11/15/22 15:49:20 Entry 4 Entry 5 Entry 6 Case Attendee Jennie JCA, Yanet Orlando RN, Mary Lemon RN, Jo Role Performed RETAIL SALES REPRESENTATIVE Primary RETAIL SALES REPRESENTATIVE [place] Park Interpreter [place] Time In 11/15/22 14:30:00 11/15/22 14:30:00 [...] 9 Case Attendee Francisco RN, Radha Arzola OPHTHALMIC MEDICAL ASSISTANT, Chang Prater Role Performed Park Interpreter Primary Scrub Primary Scrub Relief Time In 11/15/22 14:30:00 11/15/22 14:30:00 11/15/22 15:00:00 Time Out 11/15/22 15:36:00 11/15/22 15:01:00 11/15/22 15:36:00 Procedure D and C w Cervical D and C w Cervical D and C w Cervical Leep(None) Leep(None) Leep(None) Last Modified By: Francisco RN, Radha Singh RN, Radha Singh RN, Radha 11/15/22 15:49:20 11/15/22 15:49:20 11/15/22 15:49:20 Entry 10 Case Attendee Hue PA-C, Octavio Arriaza Performed PA-C Relief Time In 11/15/22 15:00:00 Time Out 11/15/22 15:36:00 Procedure D and C w Cervical Leep(None) Last Modified By: Francisco RM, Radha 11/15/22 15:49:20 General Case Data - Main OR Entry 1 Case Information OR OR 09 Schedule Type Scheduled Case Level Level 4 Wound Class Clean-Contaminated Specialty SN - ASA Class 2 Obstetric/Gynecology Procedure History Yes Documented Diagnosis Preop Diagnosis HPV INFECTION Postop Diagnosis HPV INFECTION Last Modified By: Francisco RM, Radha 11/15/22 15:15:08 Delays - Main OR Entry 1 Delay Reason Room Setup Delay Description CONTAMINATED ITEM ON STERILE FIELD Last Modified By: Francisco RM, Radha 11/15/22 14:47:40 Patient Positioning - Main OR Entry 1 Procedure D and C w Cervical Body Position Lithotomy Leep(None) Left Arm Position Extended on padded arm Right Arm Position Extended on padded arm board board Left Leg Position Secured in Stirrup Right Leg Position Secured in Stirrup Feet Uncrossed? Yes Press Points Checked Yes By ELLY ARBOLEDA, CHAIM, Positioning Devices Pillow under Head, Yanet Lugo, Giovanny Woodson Mains RN, Ion Hernandez SCDs Knee High, Safety RN, Jo Strap Last Modified By: Radha Singh RN 11/15/22 14:48:40 Skin Prep - Main OR Entry 1 Procedure D and C w Cervical Prep Area PERINEUM Leep(None) Prep Agents Betadine Solution By Darion RM, Mary Hair Removal Last Modified By: Radha Singh RN 11/15/22 14:48:58 Counts Verification - Main OR Entry 1 Entry 2 Entry 3 Count Type Initial Shift Change Final Closing Count Participants Dariusz PAYAN, Chang Kaur, Chang Kaur Michelle, Mains RN, Dariusz OPHTHALMIC MEDICAL ASSISTANT, Chang Singh RN, Radha Hernandez Count Status Correct Correct Correct Items Counted Sponges, Sharps Sponges, Sharps Sponges, Sharps Surgeon Notified n/a Yes Yes Closing Count Correct Last Modified By: Francisco RM, Radha Magana (more content not included)... Normal [facility] Operative Reporton Operative Report Date of Operation 11/15/2022 16:02 *Preoperative Diagnosis cervical mass, HPV 16 *Postoperative Diagnosis same Operative Procedure D&C hysteroscopy ECC Surgeon(s) JIMBO ESPINO, IDALMIS Rodriguez (Surgeon Primary) Last Puller Octavio Swann PA-C (PA-C Relief) Indication for Visual Design Lead Given the inherent complexity of this surgery, a second surgeon or a surgically skilled physician talent acquisition assistant was necessary for the successful completion of this entire operative procedure. The medical support assistant was present for the entire operative procedure and participated in all aspects of patient care This included transporting the patient to the operating room and entering room with the patient, assisting with preoperative positioning, first assisting throughout the entire surgical procedure by functioning as a second talent acquisition assistant surgeon, assisting with surgical closure, and finally accompanying the patient to recovery. Anesthesia DELMAR ZAMBRANO MD, CODY (Boat Detailer) CHAIM SANABRIA CRNA (Provider) *Estimated Blood Loss [...] the uterus with sharp curettage and the [facility] handed off. Confirmed no evidence of perforation. [...] the recovery room in good condition. Normal [facility] It Security Consulting Director Details- Texton 11-15-2022 It Security Consulting Director Details- Text It Security Consulting Director Details Entered On: 11/15/2022 11:32 EST Performed On: 11/15/2022 12:29 EST by America Diego RN It Security Consulting Director Details Isolation Precaution Order Detail EV : NONE Order Detail EV : No Pacemaker Order Detail : 0 It Security Consulting Director Details Review Status : Initial Review Nurse Collects Blood Specimens : No America Diego RN - 11/15/2022 12:29 EST Transport Mode Order Detail EV : Cart Isolation Precautions RTF : History and Physical by House Physician, 10/31/2022 10:50:00 EST, 10/31/2022 10:50:00 EST, Ordered IV Order Detail - EV : Yes Oxygen Order Detail EV : No America Diego RN - 11/15/2022 11:32 EST Normal [facility] Outpatient Admission Data- T exton 11-15-2022 Outpatient [...] America Diego RN - 11/15/2022 12:29 EST Joppa Coma Eye Opening Response Yasmin : Spontaneously Best Verbal Response Joppa : Oriented Best Motor Response Joppa : Obeys simple commands Joppa Coma Score : 15 America Diego RN - 11/15/2022 12:29 EST Outpatient [...] Diego RN - 11/15/2022 12:29 EST Normal [facility] PACU Phase I - Main ORon PACU Phase I - Main OR PACU Phase I - Ma in OR Summary Primary Physician: IDALMIS JIMENEZ Finalized Date/Time: 11/15/22 16:22:45 Pt. Name: COREY PERLA/Sex: 1990 Female Med Rec #: [id number] Physician: Financial #: [id number] Pt. Type: A Room/Bed: / Admit/Disch: 11/15/22 11:30:26 - Institution: PACU I - Case Times - Main OR Entry 1 In PACU I 11/15/22 15:37:00 Ready for Transfer 11/15/22 16:21:00 Last Modified By: Barb Matthews RN 11/15/22 16:22:44 Finalized By: Barb Matthews RN Document Signatures Signed By: Barb Matthews RN 11/15/22 16:22 Normal [facility] PACU Phase II - Main ORon PACU Phase II - Main OR PACU Phase II - Main OR Summary Primary Physician: IDALMIS JIMENEZ Finalized Date/Time: 11/15/22 16:38:07 Pt. Name: COREY PERLA/Sex: 1990 Female Med Rec #: [id number] Physician: Financial #: [id number] Pt. Type: A Room/Bed: / Admit/Disch: 11/15/22 11:30:26 - Institution: PACU II - Case Times - Main OR Entry 1 In PACU II 11/15/22 16:25:00 Ready for PACU II n/a Discharge Discharge from PACU 11/15/22 16:38:00 II Last Modified By: Barb Matthews RN 11/15/22 16:38:06 Finalized By: Barb Matthews RN Document Signatures Signed By: Barb Matthews RN 11/15/22 16:38 Normal [facility] Preop - Main ORon 11-15-2022 Preop - Main OR Preop - Main OR Summary Primary Physician: IDALMIS JIMENEZ Finalized Date/Time: 11/15/22 12:23:34 Pt. Name: COREY PERLA/Sex: 1990 Female Med Rec #: [id number] Physician: Financial #: [id number] Pt. Type: A Room/Bed: / Admit/Disch: 11/15/22 11:30:26 - Institution: Preop - Case Times - Main OR Entry 1 Patient Arrival Time 11/15/22 11:33:00 Patient Ready for 11/15/22 12:23:00 Surgery Report Given to n/a Last Modified By: America Diego RN 11/15/22 12:23:30 Finalized By: America Diego RN Document Signatures Signed By: America Diego RN 11/15/22 12:23 Normal [facility] U TESTon Test, U Negative Normal [facility] Comment on above: Order Comment: Femal es: 10 and older Performed By: #### 1 [id number] #### [facility] Laboratory Services [address] [place], [place] [address] Crankshaft Straightener: Edison Dasilva MD U Preg Internal QC Present Normal [facility] Comment on above: Order Comment: Femal es: 10 and older Performed By: #### 1 [id number] #### [facility] Services [address] [place] [address] Crankshaft Straightener: Edison Dasilva MD [place] Protocol/Pre-Proc TimeOut-Texton 11-15-2022 [place] Protocol/Pre-Proc TimeOut-Text [place] Protocol Entered On: 11/15/2022 11:32 EST Performed [...] From Marking Site : UTERUS, CERVIX Laterality [place] Protocol : N/A Site Verification Completed : [...] Members are in Agreement Laterality : N/A Radha Singh RN - 11/15/2022 15:47 EST Normal [facility] HCTon 10-31-2022 Hematocrit (Bld) [Volume fraction] 40.0 % Normal 36.0-46.0 [facility] Comment on above: Performed By: #### 1 [id number] #### [facility] Laboratory Services [address] [place], [place] [id number] Crankshaft Straightener: Edison Dasilva MD Preadmission Testing Progres s [...] or recovery on day of surgery Normal [facility] Phone Msgoveronica 10-18-2022 Phone Msg - From: IDALMIS JIMENEZ [...] her two week post op appt. Normal [facility] SURGICAL PATH REPORTon 10-15 SURGICAL PATH REPORT [facility] Department of Pathology [address] [place] [phone] Name: COREY PERLA : 1990 [facility] [id number] Number: Gender Female [facility]. : n: Admit 32 years Attending IDALMIS JIMENEZ Age: Provider: Ordering IDALMIS JIMENEZ Provider: Consulti Surgical Pathology Report ng: ACCESSION: COLLECTED DATE/TIME: RECEIVED DATE/TIME: PATHOLOGIST: [id number] 10/09/2022 09:15 EST 10/10/2022 09:15 EST MATILDE [...] ____ Print 10/17/2022 12:59 EST Number: Date/Time: [facility] Department of Pathology [address] [place] [phone] Name: COREY PERLA : 1990 [facility] [id number] Number: Gender Female [facility]. : n: Admit 32 years Attending IDALMIS JIMENEZ Age: Provider: Ordering IDALMIS JIMENEZ Provider: Consulti Surgical Pathology Report ng: ACCESSION: COLLECTED DATE/TIME: RECEIVED DATE/TIME: PATHOLOGIST: [id number] 10/09/2022 09:15 EST 10/10/2022 09:15 EST MATILDE CHAMBERS, LUÍS LEE Gross Description (B) Labeled ECC. Received in formalin are multiple irregular colon feathery segments of soft tissue. The specimen is filtered and has a filtrate aggregate dimension of 0.4 x 0.3 x 0.1 cm. The specimen is entirely submitted in one cassette. MP/ln/ww 10/10/2022 Microscopic Diagnosis NOTE: One or more of the reagents used to perform assays on this specimen MAY have contained components considered to be analyte specific reagents ( ASRs). ASRs have not been cleared or approved by the U.S. Food and Drug Administration. The performance characteristics of these assays have been determined by the Department of Pathology at [facility]. This assay was performed subsequent to the H and E examination. Appropriate positive and negative controls were examined with appropriate reactivity. Codes CPT CODE: 23766 X2 + 36118 + 12577 ____ Print 10/17/2022 12:59 EST Number: Date/Time: Normal [facility] Comment on above: Performed By: #### 9 [id number] ####[facility] Laboratory [id number] [place] [address] Medical Director: MD YOU Ruiz Urine POC 8102 5on 10-09-2022 Beta HCG ( test) Ql (U) Urine Test Entered On: 10/09/2022 9:24 EST Performed On: 10/09/2022 9:24 EST by Sudhakar Linn MA Urine HCG Urine Beta Human Chorionic Gonadotropin Qualitative : Negative Sudhakar Linn MA - 10/09/2022 9:24 EST Normal [facility] You Office-Progress Notes-Pr ovideron 10-09-2022 You Office-Progress Notes-Provider Assessment/Plan This Visit Diagnosis 1. Cervical mass N88.8 Ordered: YOU Colposcopy Cervix w/Bx Endocerv Curetg 62934, 10/09/2022 14:50:00 EST, Cervical mass / Pre-procedure lab exam / High risk HPV infection, 1 2. Pre-procedure lab exam Z01.812 Ordered: AMB Colposcopy Cervix w/Bx Endocerv Curetg 69942, 10/09/2022 14:50:00 EST, Cervical mass / Pre-procedure lab exam / High risk HPV infection, 1 AMB Urine POC 23929, 10/09/2022 09:20:00 EST, Pre-procedure lab exam 3. 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 Physical Exam [...] the possibility of cancer and need for rehab rn onc PARK ACTIVITIES COORDINATOR Additional Details-Patient Stated Menstrual History Menstrual StatusMenarcheal PARK ACTIVITIES COORDINATOR Screening Date of Last Pap Smear12/03/21 Last [...] hCG Ql Negative 10/09/2022 09:24 EST Normal [facility] Ambulatory Clinical Summaryo n 10-09-2022 Ambulatory Clinical Summary COREY PERLA :1990 Visit Date:10/09/2022 Ambulatory Visit Instructions Your Diagnosis Pre-procedure lab exam Tests Performed AMB Urine POC 35538 Your Care Team Attending Physician - IDALMIS [...] 09:09:00) Weight Measured - lbs2: 136 lb (10/09/22 09:09:00) Height/Length Measured - in2: 64.17 in (10/09/22 09:09:00) Body Mass Index Measured English2: 23.22 kg/m2 (10/09/22 09:09:00) BSA: 1.67 m2 (10/09/22 09:09:00) Ht/Wt Measurement Refused by Patient?2: No (10/09/22 09:09:00) What to do next Scheduled Follow-Up Appointments No results Test Results AMB Urine POC 46283 (10/09/2022) U beta hCG Ql - Negative [...] call to get immediate medical attention! Normal [facility] Comprehensive Intake - Texto n 10-09-2022 Comprehensive Intake - Text Comprehensive Intake Entered On: 10/09/2022 9:13 EST Performed On: 10/09/2022 9:09 EST by Sudhakar Linn MA Summary Chief Complaint : new pt/ Dr. Arenas pt. Last pap-neg w/pos HPV other and 16. unsure of lmp doesnt really get period not on any b.c Sudhakar Linn MA - 10/09/2022 9:13 EST Bladder Control Issues? : No Urine Leakage? : No Presence or absence of urinary incontinence assessed : Yes CPT-II Medication list doc'd in medical record : Yes Influenza immunization administered or previously received : No Pneumococcal vaccine administered or previously received : No Sudhakar Linn MA - 10/09/2022 9:09 EST Measurements [...] in, 163 cm) Body Mass Index Measured Ukrainian : 23.22 kg/m2 BSA Ukrainian : 1.67 m2 Sudhakar Linn MA - 10/09/2022 9:09 EST Vitals Require BP : Yes Systolic Blood Pressure : 120 mmHg Diastolic Blood Pressure : 70 mmHg Mean Arterial Pressure : 87 mmHg Last Systolic BP : less than 130 mmHg Last Diastolic BP : less than 80 mmHg Pain Present : No actual or suspected pain Pain : 0 Pain severity quantified : No pain present Sudhakar Linn MA - 10/09/2022 9:13 EST Infection Screening - Ambulatory Exposure AND/OR close contact with a person under investigation or laboratory-confirmed COVID-19 individual within 14 days of symptom onset AND/OR any of the following: : No Do you live/work in a high risk situation (congregated living, hemodialysis, infusion clinic, long-term, assisted living, detention, homeless mcc, etc.)? : No Sudhakar Linn MA - 10/09/2022 9:09 EST Depression Screening Is patient currently : None of the Below Feeling Down, Depressed, Hopeless : Not at all Little Interest - Pleasure in Activities : Not at all Initial Depression Screen Score : 0 Depression Screening Score 0 : No Sudhakar Linn MA - 10/09/2022 9:09 EST Falls [...] fall with no injury in last year Sudhakar Linn MA - 10/09/2022 9:09 EST Normal [facility] PARK ACTIVITIES COORDINATOR Visit - Texton PARK ACTIVITIES COORDINATOR Visit - Text PARK ACTIVITIES COORDINATOR Visit Entered On : 10/09/2022 9:41 EST Performed On: 10/09/2022 9:40 EST by Sudhakar Linn MA PARK ACTIVITIES COORDINATOR Menstrual History Menstrual Status : Menarcheal Sudhakar Linn MA - 10/09/2022 9:40 EST PARK ACTIVITIES COORDINATOR Screenings Date of Last Pap Smear : 12/03/21 Last Pap Result : Negative Last Pap Result Comment : pos other and 16 HPV Sudhakar Linn MA - 10/09/2022 9:40 EST Normal [facility] Phone Msgon 10-08-2022 Phone Msg - From: Adele Patton To: IDALMIS JIMENEZ; Sent: 10/07/2022 11:10:10 EST Subject: RESULTS Caller Name: COREY PERLA; Caller Number: H Patient called today to schedule with you. She had a U/S done at the [facility]. 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 Thank you From: Adele Patton To: IDALMIS JIMENEZ; Sudhakar Linn MA; Sent: 10/08/2022 10:21:47 EST Subject: [...] no she does not need Cytotec Normal [facility] Phone Msg - From: Adele Patton Sent: 10/08/2022 09:43:22 EST Subject: COLP Caller Name: COREY PERLA; Caller Number: H Patient is scheduled in November for her appt. I received a message from Dr. Cobb to have her come in sooner. I have an appt. 10/09/2022 at 9 Normal [facility] ELISABET Santiago 10-02-2022 Genprobe Chlamydia Negative Normal [facility] Comment on above: Result Comment: This Chlamydia assay is being performed via a second generation NAAT that utilizes target capture, company truck driver mediated amplification and dual kenetic assay technologies. Performed By: #### 1 [id number], [id number] #### [facility] Laboratory Services [address] [place] [address] Crankshaft Straightener: Edison Dasilva MD GP GCon 10-02-2022 Genprobe GC Negative Normal [facility] Comment on above: Result Comment: This Gonorrhoea assay is being performed via a second generation NAAT that utilizes target capture, company truck driver mediated amplification and dual kenetic assay technologies. Performed By: #### 1 [id number], [id number] #### [facility] Laboratory Services [address] [place] [address] Crankshaft Straightener: Edison Dasilva MD Pharmacy Clinical Interventi ons-Texton [...] Haq RPh - 10/02/2022 21:28 EST Normal [facility] APTTon 2022 aPTT Coag (Bld) [Time] 30.4 s Normal 26.0-39.0 So [facility] Comment on above: Performed By: #### 1 [id number] #### [facility] Laboratory Services [address] [place] [address] Crankshaft Straightener: Edison Dasilva MD AUTO DIFFon 2022 Baso Count 0.10 x1000 Normal 0.00-0.20 [facility] Comment on above: Performed By: #### C [id number] #### [facility] Laboratory Services [address] [place] [address] Crankshaft Straightener: Edison Dasilva MD Basos % 1.1 % Normal [facility] Comment on above: Performed By: #### C [id number] #### [facility] [address] [place] [address] Crankshaft Straightener: Edison Dasilva MD Eos Count 0.50 x1000 Normal 0.00-0.50 [facility] Comment on above: Performed By: #### C [id number] #### [facility] [address] [place] [address] Crankshaft Straightener: Edison Dasilva MD Eosinophils/100 WBC (Bld) 4.6 % Normal [facility] Comment on above: Performed By: #### C [id number] #### [facility] Laboratory Services [address] [place] [address] Crankshaft Straightener: Edison Dasilva MD Lymph Count 2.60 x1000 Normal 1.20-4.80 [facility] Comment on above: Performed By: #### C [id number] #### [facility] [address] [place] [address] Crankshaft Straightener: Edison Dasilva MD Lymphocytes/100 WBC (Bld) 24.8 % Normal [facility] Comment on above: Performed By: #### C [id number] #### [facility] [address] [place] [address] Crankshaft Straightener: Edison Dasilva MD [place] Count 0.80 x1000 Normal 0.10-1.00 [facility] Comment on above: Performed By: #### C [id number] #### [facility] [address] [place] [address] Crankshaft Straightener: Edison Dasilva MD Monocytes/100 WBC (Bld) 7.7 % Normal [facility] Comment on above: Performed By: #### C [id number] #### [facility] [address] [place] [address] Crankshaft Straightener: Edison Dasilva MD Neutrophil Count (ANC) 6.50 x1000 Normal 1.40-8.80 So [facility] Comment on above: Performed By: #### C [id number] #### [facility] Services [address] [place] [address] Crankshaft Straightener: Edison Dasilva MD Neutrophils/100 WBC (Bld) 61.8 % Normal [facility] Comment on above: Performed By: #### C [id number] #### [facility] Services [address] [place] [address] Crankshaft Straightener: Edison Dasilva MD C WETPREPon 2022 C WETPREP [facility] [address] [place] [phone] Name: COREY PERLA : 1990 Admitting Provider: Gender Female Financial [id number] : Number: Bernabe KELLEY SIVA; Bed 07; [...] PERLA Print 2022 08:47 EST Date/Time: Normal [facility] Comment on above: Performed By: #### 1 [id number] #### [facility] Laboratory Services [address] [place] [address] Crankshaft Straightener: Edison Dasilva MD COMPMETAoveronica 2022 GFR Estimated 73 Normal [facility] Comment on above: Result Comment: The GFR is calculated and is Age, Sex, and Race adjusted. Performed By: #### 1 54095 #### [facility] Laboratory Services [address] [place] [address] Crankshaft Straightener: Edison Dasilva MD Albumin [Mass/Vol] 3.7 g/dL Normal 3.4-5.0 [facility] Comment on above: Performed By: #### 1 72482 #### [facility] Laboratory Services [address] [place], [place] [address] Crankshaft Straightener: Edison Dasilva MD Albumin/Globulin [Mass ratio] 1.1 {ratio} [facility] Comment on above: Performed By: #### 1 59824 #### [facility] Laboratory Services [address] [place], [place] [address] Crankshaft Straightener: Edison Dasilva MD Alk Phos 112 unit/L Normal 45-117 [facility] Comment on above: Performed By: #### 1 25224 #### [facility] Laboratory Services [address] [place], [place] [address] Crankshaft Straightener: Edison Dasilva MD Bilirubin [Mass/Vol] 0.20 mg/dL Normal 0.20-1.00 [facility] Comment on above: Result Comment: Use of this assay is not recommended for patients undergoing treatment with eltrombopag due to the potential for falsely elevated results. Performed By: #### 1 95486 #### [facility] Laboratory Services [address] [place] [address] Crankshaft Straightener: Edison Dasilva MD Calcium [Mass/Vol] 8.6 mg/dL Normal 8.5-10.5 [facility] Comment on above: Performed By: #### 1 22146 #### [facility] Laboratory Services [address] [place] [address] Crankshaft Straightener: Edison Dasilva MD Chloride [Moles/Vol] 108 mmol/L Normal 100-109 [facility] Comment on above: Performed By: #### 1 87952 #### [facility] Laboratory Services [address] [place] [address] Crankshaft Straightener: Edison Dasilva MD CO2 [Moles/Vol] 23.4 mmol/L Normal 21.0-32.0 [facility] Comment on above: Performed By: #### 1 59389 #### [facility] Laboratory Services [address] [place] [address] Crankshaft Straightener: Edison Dasilva MD Creatinine [Mass/Vol] 0.9 mg/dL Normal 0.6-1.0 [facility] Comment on above: Performed By: #### 1 59767 #### [facility] Laboratory Services [address] [place] [address] Crankshaft Straightener: Edison Dasilva MD Globulin (S) [Mass/Vol] 3.5 g/dL Normal [facility] Comment on above: Performed By: #### 1 34093 #### [facility] Laboratory Services [address] [place] [address] Crankshaft Straightener: Edison Dasilva MD Glucose [Mass/Vol] 108 mg/dL High 72-100 [facility] Comment on above: Result Comment: Raven puncture should occur prior to sulfasalazine administration due to the potential for falsely depressed results. Venipuncture should occur prior to sulfapyridine administration due to the potential falsely elevated results. Baseline assay values before administration of sulfasalazine and sulfapyridine therapy would not be affected. Performed By: #### 1 98820 #### [facility] Services [address] [place] [address] Crankshaft Straightener: Edison Dasilva MD GOT 13 unit/L Low 15-37 [facility] Comment on above: Result Comment: Raven puncture should occur prior to sulfasalazine administration due to the potential for falsely depressed results. Baseline assay values before administration of sulfasalazine and sulfapyridine therapy would not be affected. Performed By: #### 1 73047 #### [facility] Laboratory Services [address] [place] [address] Crankshaft Straightener: Edison Dasilva MD GPT 18 unit/L Normal 14-59 [facility] Comment on above: Result Comment: Raven puncture should occur prior to sulfasalazine administration due to the potential for falsely depressed results. Baseline assay values before administration of sulfasalazine and sulfapyridine therapy would not be affected. Performed By: #### 1 08023 #### [facility] Services [address] [place] [address] Crankshaft Straightener: Edison Dasilva MD Osmolality [Osmolality] 284 mosm/kg Normal 275-295 [facility] Comment on above: Performed By: #### 1 71075 #### [facility] Services [address] [place] [address] Crankshaft Straightener: Edison Dasilva MD Potassium [Moles/Vol] 3.8 mmol/L Normal 3.5-5.1 [facility] Comment on above: Performed By: #### 1 58341 #### [facility] Services [address] [place] [address] Crankshaft Straightener: Edison Dasilva MD Protein [Mass/Vol] 7.2 g/dL Normal 6.0-8.5 [facility] Comment on above: Performed By: #### 1 00286 #### [facility] Services [address] [place] [address] Crankshaft Straightener: Edison Dasilva MD Sodium [Moles/Vol] 143 mmol/L Normal 135-145 [facility] Comment on above: Performed By: #### 1 31936 #### [facility] Services [address] [place] [address] Crankshaft Straightener: Edison Dasilva MD Urea nitrogen [Mass/Vol] 9 mg/dL Low 10-20 [facility] Comment on above: Performed By: #### 1 40566 #### 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 ; Recorder: Karina Encinas RN; Confirmation: Confirmed ; Classification: Medical ; Code: [id number] ; Contributor System: [employer] ; Last Updated: 2022 07:37 EST ; Life Cycle Date: 2022 ; Life Cycle Status: Active ; Vocabulary: SNOMED CT Diagnoses(Active) Abdominal pain Date: 2022 ; Diagnosis Type: Reason For Visit ; Confirmation: Confirmed ; Clinical Dx: Abdominal pain ; Classification: Medical ; Clinical Service: Emergency medicine ; Code: PNED ; Probability: 0 ; Diagnosis Code: [id number] Vaginal bleeding Date: 2022 ; Diagnosis Type: Reason For Visit ; Confirmation: Confirmed ; Clinical Dx: Vaginal bleeding ; Classification: Medical ; Clinical Service: Emergency medicine ; Code: PNED ; Probability: 0 ; Diagnosis Code: [id number] Procedure History ED Devices Present on Arrival [...] risk situation (congregated living, hemodialysis, infusion clinic, long-term, assisted living, detention, homeless mcc, etc.)? 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 ? Take an fqxk-tmy-sbrufkd pain medicine, such as acetaminophen (Tylenol), ibuprofen [...] Where can you learn more? Go to https://www.GOintegronet/patientEd Enter B514 in the search box to learn more about Pelvic Pain: Care Instructions. Current as of: May 26, 2020 Content Version: 12.7 ? [employer]. Care instructions adapted under license by your healthcare professional. If you have questions about a medical condition or this instruction, always ask your healthcare professional. [employer] disclaims any warranty or liability for your [...] your doctor if you can take an hlzd-tgo-xdbmgag medicine. Do not take aspirin, which may [...] Where can you learn more? Go to https://www.Ivaldi/patientEd Enter L814 in the search box to learn more (more content not included)... Normal [facility] ED Emergency Severity Index Adult-Texton 2022 ED [...] Liu RN - 2022 7:31 EST Normal [facility] ED Nrsing Adlt Triage Sep Sc rning - Texton 2022 ED Nrsing Adlt Triage Sep Scrning - Text ED Nursing Adult Triage Sepsis Screening Tool Entered On: 2022 7:32 EST Performed On: 2022 7:12 EST by Karina Encinas RN Adult Sepsis Screening Sepsis Infection Screening ED : No Karina Encinas RN - 2022 7:32 EST Normal [facility] ED Patient Summaryon 022 ED Patient Summary [facility] Emergency Department Discharge Instructions [address] [place] [address] \.br\(Patient Copy)\.br\ \.br\Name: COREY PERLA : 1990 \.br\Allergies: No Known Allergies\.br\Diagnos is: Cervical spinal mass; Pelvic pain; Uterine bleeding, dysfunctional\.br\ \.br\ Visit Date: 2022 07:10:18 \.br\ Current Date Time: 2022 12:44:19 \.br\Address: [facility] [address] [facility] [address] \.br\Phone: [phone] \.br\ \.br\Primary Care Provider: \.br\ Name: NO FAMILY PHYSICIAN, 837\.br\ Phone: \.br\ \.br\Emergency Department Care Providers: \.br\ Primary Physician: CODY WINKLER MD \.br\ \.br\ \.br\\.br\Thank you for choosing [facility] for your emergency care. You are very important to us. Our goal is to demonstrate our high quality medical care, and provide you with a very good patient experience.\.br\\.br\ You may receive a survey about our service. Please take the time to complete the survey and return it so we can continue to enhance our service.\.br\\.br\Tony nk you again for allowing the [facility] Emergency Department to care for your medical needs. If you have questions about your care or follow up information please contact us at [phone].\.br\\.b r\ Follow-Up Instructions\.br\____ _\.br\COREY PERLA has been given these follow-up instructions:\.br\\.b r\\.br\With: Address: When: \.br\YOUR LANGUAGE THERAPIST Within 3 to 5 days \.br\Comments: \.br\ULTRAM FOR PAIN \.br\MOTRIN FOR INFLAMMATION \.br\HAVE YOUR PARK ACTIVITIES COORDINATOR EVALUATE CERVICAL MASS/CYST \.br\\.br\\.br\With: Address: When: \.br\[address] [...] your symptoms have gone away.\.br\? Take an lowj-qaq-nzktitf pain medicine, such as acetaminophen (Tylenol), ibuprofen [...] expected. \.br\Where can you learn more?\.br\Go to [email or web address] nter B514 in the search box to learn more about Pelvic Pain: Care Instructions.\.br\Cur rent as of: May 26, 2020 Content Version: 12.7\.br\? [employer]. \.br\Care instructions adapted under license by your healthcare professional. If you have questions about a medical condition or this instruction, always ask your healthcare professional. [employer] disclaims any warranty or liability for your [...] happen oft (more content not included)... Normal [facility] ED Physician Reporton 2021 ED Physician Report [...] Severe Pain Pain Symptoms Yes Preferred Verbal Ukrainian Feeling Down, Depressed, Hopeless Not at all Initial Depression Screen Score 0 Little Interest - Pleasure in Activities Not at all Depression Screenin (more content not included)... Normal [facility] ED Progress Noteon 2 ED Progress Note [...] to patient. patient signed discharge papers. Normal [facility] ED Triage Adult-Texton 10-01 ED Triage Adult-Text [...] PNED ; Probability: 0 ; Diagnosis Code: [id number] Vaginal bleeding Date: 2022 ; Diagnosis Type: Reason For Visit ; Confirmation: Confirmed ; Clinical Dx: Vaginal bleeding ; Classification: Medical ; Clinical Service: Emergency medicine ; Code: PNED ; Probability: 0 ; Diagnosis Code: [id number] (As Of: 2022 07:36:24 EST) Allergies (Active) [...] Encinas RN - 2022 7:32 EST Normal [facility] HCG QUANTon 2022 HCG, Quant 1.0 mIU/mL Normal [facility] Comment on above: Result Comment: 0.2- 1 weeks 5 -50 mIU/ml 1 - 2 weeks 50-500 mIU/ml 2 - 3 weeks 100-5,000 mIU/ml 3 - 4 weeks 500-10,000 mIU/ml 4 - 5 weeks 1,000-50,000 mIU/ml 5 - 6 weeks 10,000-100,000 mIU/ml 6 - 8 weeks 15,000-200,000 mIU/ml 2 - 3 months 10,000-100,000 mIU/ml Performed By: #### 1 [id number] #### [facility] [address] [place] [address] [employer]ha[employer] Straightener: MD Joselito Ruiz 2022 DIFF? No Normal [facility] Comment on above: Performed By: #### 1 [id number] #### [facility] [address] [place] [address] [employer] Straightener: Edison Dasilva MD Erythrocyte distribution width (RBC) [Ratio] 14.0 % Normal 11.5-14.5 [facility] Comment on above: Performed By: #### 1 [id number] #### [facility] [address] [place] [address] [employer] Straightener: Edison Dasilva MD Hematocrit (Bld) [Volume fraction] 43.0 % Normal 36.0-46.0 [facility] Comment on above: Performed By: #### 1 [id number] #### [facility] [address] [place], [place] [address] [employer] Straightener: Edison Dasilva MD Hemoglobin (Bld) [Mass/Vol] 14.5 g/dL Normal 12.0-16.0 [facility] Comment on above: Performed By: #### 1 [id number] #### [facility] [address] [place], [place] [address] [employer] Straightener: Edison Dasilva MD Instr WBC 10.5 Normal [facility] Comment on above: Performed By: #### 1 [id number] #### [facility] [address] [place], [place] [address] [employer] Straightener: Edison Dasilva MD MCH (RBC) [Entitic mass] 31.9 pg Normal 27.0-34.0 [facility] Comment on above: Performed By: #### 1 [id number] #### [facility] [address] [place] [address] [employer] Straightener: Edison Dasilva MD MCHC (RBC) [Mass/Vol] 33.7 g/dL Normal 32.0-37.0 [facility] Comment on above: Performed By: #### 1 62871 #### [facility] [address] [place] [address] [employer] Straightener: Edison Dasilva MD MCV (RBC) [Entitic vol] 94.6 fL Normal 80.0-100.0 [facility] Comment on above: Performed By: #### 1 [id number] #### [facility] [address] [place] [address] [employer] Straightener: Edison Dasilva MD Nucleated RBC 0 /100WBC Normal [facility] Comment on above: Performed By: #### 1 [id number] #### [facility] [address] [place], [place] [address] [employer] Straightener: Edison Dasilva MD Platelet 401 x10 Normal 150-450 [facility] Comment on above: Performed By: #### 1 [id number] #### [facility] [address] [place] [address] [employer] Straightener: Edison Dasilva MD Platelet mean volume (Bld) [Entitic vol] 7.4 fL Normal 7.4-10.4 [facility] Comment on above: Performed By: #### 1 [id number] #### [facility] [address] [place] [address] [employer] Straightener: Edison Dasilva MD RBC 4.55 x10 Normal 4.20-5.40 [facility] Comment on above: Result Comment: Note : RBC morphology is normal unless otherwise stated. Evaluation performed only if differential is requested. Performed By: #### 1 [id number] #### [facility] [address] [place] [address] [employer] Straightener: Edison Dasilva MD WBC 10.5 x10 Normal 4.5-11.0 [facility] Comment on above: Performed By: #### 1 27472 #### [facility] [address] [place], [place] [address] [employer] Straightener: Edison Dasilva MD KETOROLAC 30MG/1ML INJon KETOROLAC [...] Encinas RN - 2022 16:29 EST Normal [facility] Comment on above: Order Comment: do no t exceed 60mg/24hrs for patients over 65, 120mg/24hr for patients 65 or younger; MorPHINE 2MG/1ML INJon 10-01 MorPHINE 2MG/1ML INJ PRN Response Entere d On: 2022 11:30 EST Performed On: 2022 8:56 EST by Karina Encinas RN Intervention Information: morphine Performed by Karina Encinas RN on 2022 07:58:00 EST morphine,4mg IV Push,Right Antecubit Revillo PRN Medication Response PRN Medication used for [...] Encinas RN - 2022 11:30 EST Normal [facility] Comment on above: Order Comment: deanna ruffin SOUND ALIKE/LOOK ALIKE-verify med;potential SOUND ALIKE/LOOK ALIKE-verify med; PT INRon 2022 INR Coag (PPP) [Relative time] 0.90 {INR} Normal [facility] Comment on above: Result Comment: INR Reference Range: Normal reference range for INR on patients not on anticoagulant therapy: 0.9-1.1 General therapeutic range for patients on anticoagulant therapy: 2.0-3.5 Performed By: #### 1 [id number] #### [facility] [address] [place] [address] [employer] Straightener: Edison Dasilva MD Protime Patient 10.4 seconds Normal 9.8-13.4 [facility] Comment on above: Performed By: #### 1 [id number] #### [facility] [address] [place] [address] [employer] Straightener: Edison Dasilva MD UAon 2022 Bacteria, U Few Normal [facility] Comment on above: Performed By: #### C [id number] #### [facility] [address] [place] [address] [employer] Straightener: Edison Dasilva MD Mucous, U Occasional Normal [facility] Comment on above: Performed By: #### C [id number] #### [facility] [address] [place] [address] [employer] Straightener: Edison Dasilva MD RBC/HPF, U 2 #/HPF Normal 0-3 [facility] Comment on above: Performed By: #### C [id number] #### [facility] [address] [place] [address] [employer] Straightener: Edison Dasilva MD Squamous Epithelial Cells, U <1 Normal [facility] Comment on above: Performed By: #### C [id number] #### [facility] [address] [place] [address] [employer] Straightener: Edison Dasilva MD U MICRO Indicated Normal [facility] Comment on above: Performed By: #### C D:[id number] #### [facility] [address] [place] [address] [employer] Straightener: Edison Dasilva MD WBC/HPF, U <1 Normal 0-5 [facility] Comment on above: Performed By: #### C [id number] #### [facility] [address] [place] [address] [employer] Straightener: Edison Dasilva MD Appearance, U Clear Normal [facility] Comment on above: Performed By: #### C [id number] #### [facility] [address] [place] [address] [employer]ha[employer] Straightener: Edison Dasilva MD Bilirubin, U Negative Normal Negative [facility] Comment on above: Performed By: #### C [id number] #### [facility] [address] [place] [address] Cr[employer]haft Straightener: Edison Dasilva MD Blood, U Large Abnormal Negative [facility] Comment on above: Performed By: #### C [id number] #### [facility] [address] [place] [address] Cr[employer]haft Straightener: Edison Dasilva MD Color, U Yellow Normal [facility] Comment on above: Performed By: #### C [id number] #### [facility] [address] [place] [address] [employer]haft Straightener: Edison Dasilva MD Glucose Qual, U Negative Normal Negative [facility] Comment on above: Performed By: #### C [id number] #### [facility] [address] [place] [address] [employer] Straightener: Edison Dasilva MD Ketones, U Negative Normal Negative [facility] Comment on above: Performed By: #### C [id number] #### [facility] [address] [place] [address] [employer] Straightener: Edison Dasilva MD Leukocyte Esterase, U Negative Normal Negative [facility] Comment on above: Performed By: #### C [id number] #### [facility] [address] [place] [address] [employer] Straightener: Edison Dasilva MD Nitrite, U Negative Normal Negative [facility] Comment on above: Performed By: #### C [id number] #### [facility] [address] [place], [place] [address] [employer] Straightener: Edison Dasilva MD pH, U 5.5 Normal 4.5-8.0 [facility] Comment on above: Performed By: #### C [id number] #### [facility] [address] [place], [place] [address] [employer] Straightener: Edison Dasilva MD Protein, U Negative Normal Negative [facility] Comment on above: Performed By: #### C [id number] #### [facility] [address] [place], [place] [address] [employer]ft Straightener: Edison Dasilva MD Specific [place], U S>=1.030 Normal 1.001-1.035 [facility] Comment on above: Performed By: #### C D:[id number] #### [facility] [address] [place], [place] [address] [employer] Straightener: Edison Dasilva MD Urobilinogen Qual, U 0.2 EU/dl Normal 0.1-1.0 mg/dl [facility] Comment on above: Result Comment: EU/d l and mg/dl are equivalent units. Performed By: #### C D:[id number] #### [facility] [address] [place], [place] [address] [employer] Straightener: Edison Dasilva MD CORONAVIRUS 2019 BY PCRon CORONAVIRUS 2019,PCR NOT DETECTED Normal Not Detected [facility] Comment on above: Result Comment: This [...] patient management decisions. Fact sheet for providers: https://www.fda.gov/media/613982/download Fact sheet for patients: https://www.fda.gov/media/976514/download This test has received FDA Emergency Use Authorization (EUA) and has been verified by [facility] ([facility]). This test is only authorized for the duration of time that circumstances exist to justify the authorization of the emergency use of in vitro diagnostic tests for the detection of SARS-CoV-2 virus and/or diagnosis of COVID-19 infection under section 564(b)(1) of the Act, 21 U.S.C. 360bbb-3(b)(1), unless the authorization is terminated or revoked sooner. [facility] is certified under CLIA-88 as qualified to perform high complexity testing. Testing is performed in the [facility] laboratories located at [address] [place] [address]. Performed By: #### C OV19 #### [place] [address] CORONAVIRUS 2019 BY PCRon Lab Specimen Source Nasal, Nasopharyngeal Normal [facility] Comment on above: Performed By: #### C OV19 #### [place] [address] Vital Signs Date Time Vital Sign Value Performing Clinician Facility 07-05-2025 21:17-0400 Body temperature 98.2 [degF] No Primary Care Physician [facility] 07-05-2025 21:17-0400 Diastolic blood pressure 58 mm[Hg] No Primary Care Physician [facility] 07-05-2025 21:17-0400 Heart rate 73 /min No Primary Care Physician [facility] 07-05-2025 21:17-0400 Respiratory rate 16 /min No Primary Care Physician [facility] 07-05-2025 21:17-0400 SaO2% (BldA) [Mass fraction] 98 % No Primary Care Physician [facility] 07-05-2025 21:17-0400 Systolic blood pressure 107 mm[Hg] No Primary Care Physician [facility] 07-05-2025 19:55-0400 Body height 162.56 cm No Primary Care Physician [facility] 07-05-2025 19:55-0400 Body mass index (BMI) [Ratio] 25.9 kg/m2 No Primary Care Physician [facility] 07-05-2025 19:55-0400 Body weight 68.49 kg No Primary Care Physician [facility] 05-11-2025 16:00-0400 Body temperature 98.4 [degF] No Primary Care Physician [facility] 05-11-2025 16:00-0400 Diastolic blood pressure 110 mm[Hg] No Primary Care Physician [facility] 05-11-2025 16:00-0400 Heart rate 60 /min No Primary Care Physician [facility] 05-11-2025 16:00-0400 Respiratory rate 14 /min No Primary Care Physician [facility] 05-11-2025 16:00-0400 Systolic blood pressure 123 mm[Hg] No Primary Care Physician [facility] 05-11-2025 12:12-0400 Body height 162.56 cm No Primary Care Physician [facility] 05-11-2025 12:12-0400 Body mass index (BMI) [Ratio] 25.6 kg/m2 No Primary Care Physician [facility] 05-11-2025 12:12-0400 Body weight 67.8 kg No Primary Care Physician [facility] 05-11-2025 11:30-0400 Body mass index (BMI) [Ratio] 25.62 kg/m2 Remy Charles APRN.SENIOR INSIGHT MANAGER [employer]NATIONAL Work Phone: [facility] 05-11-2025 11:30-0400 Body temperature 98.2 [degF] Remy Charles APRN.SENIOR INSIGHT MANAGER INTERNATIONAL Work Phone: [facility] 05-11-2025 11:30-0400 Body weight 67.7 kg Remy Charles APRN.SENIOR INSIGHT MANAGER INTER[employer]ATIONAL Work Phone: [facility] 05-11-2025 11:30-0400 Diastolic blood pressure 72 mm[Hg] Remy Charles APRN.SENIOR INSIGHT MANAGER INTERNATIONAL Work Phone: [facility] 05-11-2025 11:30-0400 Heart rate 73 /min Remy Charles APRN.SENIOR INSIGHT MANAGER INTERNATIONAL Work Phone: [facility] 05-11-2025 11:30-0400 Respiratory rate 20 /min Remy Charles APRN.SENIOR INSIGHT MANAGER INTERNATIONAL Work Phone: [facility] 05-11-2025 11:30-0400 SaO2% (BldA) [Mass fraction] 98 % No Primary Care Physician [facility] 05-11-2025 11:30-0400 Systolic blood pressure 100 mm[Hg] Remy Charles APRN.SENIOR INSIGHT MANAGER INTERNATIONAL Work Phone: [facility] 05-09-2025 18:31-0400 Body height 162.56 cm No Primary Care Physician [facility] 05-09-2025 18:31-0400 Body mass index (BMI) [Ratio] 25.4 kg/m2 No Primary Care Physician [facility] 05-09-2025 18:31-0400 Body temperature 97.9 [degF] No Primary Care Physician [facility] 05-09-2025 18:31-0400 Body weight 67.13 kg No Primary Care Physician [facility] 05-09-2025 18:31-0400 Diastolic blood pressure 70 mm[Hg] No Primary Care Physician [facility] 05-09-2025 18:31-0400 Heart rate 61 /min No Primary Care Physician [facility] 05-09-2025 18:31-0400 Respiratory rate 16 /min No Primary Care Physician [facility] 05-09-2025 18:31-0400 SaO2% (BldA) [Mass fraction] 99 % No Primary Care Physician [facility] 05-09-2025 18:31-0400 Systolic blood pressure 101 mm[Hg] No Primary Care Physician [facility] 04-19-2025 02:07-0400 Body temperature 98 [degF] No Primary Care Physician [facility] 04-19-2025 02:07-0400 Diastolic blood pressure 58 mm[Hg] No Primary Care Physician [facility] 04-19-2025 02:07-0400 Heart rate 73 /min No Primary Care Physician [facility] 04-19-2025 02:07-0400 Respiratory rate 16 /min No Primary Care Physician [facility] 04-19-2025 02:07-0400 SaO2% (BldA) [Mass fraction] 99 % No Primary Care Physician [facility] 04-19-2025 02:07-0400 Systolic blood pressure 102 mm[Hg] No Primary Care Physician [facility] 04-19-2025 00:05-0400 Body height 162.56 cm No Primary Care Physician [facility] 04-19-2025 00:05-0400 Body mass index (BMI) [Ratio] 26.2 kg/m2 No Primary Care Physician [facility] 04-19-2025 00:05-0400 Body weight 69.3 kg No Primary Care Physician [facility] 12-22-2024 22:00-0500 Heart rate 73 /min No Primary Care Physician [facility] 12-22-2024 22:00-0500 Respiratory rate 15 /min No Primary Care Physician [facility] 12-22-2024 22:00-0500 SaO2% (BldA) [Mass fraction] 97 % No Primary Care Physician [facility] 12-22-2024 20:30-0500 Diastolic blood pressure 60 mm[Hg] No Primary Care Physician [facility] 12-22-2024 20:30-0500 Systolic blood pressure 131 mm[Hg] No Primary Care Physician [facility] 12-22-2024 19:11-0500 Body temperature 100.3 [degF] No Primary Care Physician [facility] 12-22-2024 18:05-0500 Body mass index (BMI) [Ratio] 23.3 kg/m2 No Primary Care Physician [facility] 12-22-2024 18:05-0500 Body weight 61.68 kg No Primary Care Physician [facility] 03-25-2024 11:50-0400 Body mass index (BMI) [Ratio] 20.43 kg/m2 Chang Thorpe MD Work Phone: [facility] 03-25-2024 11:50-0400 Body temperature 98.01 [degF] Chang Thorpe MD Work Phone: [facility] 03-25-2024 11:50-0400 Body weight 53.98 kg Chang Thorpe MD Work Phone: [facility] 03-25-2024 11:50-0400 Diastolic blood pressure 69 mm[Hg] Chang Thorpe MD Work Phone: [facility] 03-25-2024 11:50-0400 Heart rate 71 /min Chang Thorpe MD Work Phone: [facility] 03-25-2024 11:50-0400 Systolic blood pressure 108 mm[Hg] Chang Thorpe MD Work Phone: [facility] 05-07-2023 10:42-0400 Body height 162.6 cm Fernando De La Rosa MD Work Phone: [facility] 05-07-2023 10:42-0400 Body mass index (BMI) [Ratio] 20.08 kg/m2 Fernando De La Rosa MD Work Phone: [facility] 05-07-2023 10:42-0400 Body weight 53.07 kg Fernando De La Rosa MD Work Phone: [facility] 05-07-2023 10:42-0400 Diastolic blood pressure 74 mm[Hg] Fernando De La Rosa MD Work Phone: [facility] 05-07-2023 10:42-0400 Heart rate 82 /min Fernando De La Rosa MD Work Phone: [facility] 05-07-2023 10:42-0400 Systolic blood pressure 111 mm[Hg] Fernando De La Rosa MD Work Phone: [facility] 04-24-2023 14:29-0400 Body height 162.6 cm Aldo Ocampo MD Work Phone: [facility] [employer] 04-24-2023 14:29-0400 Body mass index (BMI) [Ratio] 20.43 kg/m2 Aldo Ocampo MD Work Phone: [facility] 04-24-2023 14:29-0400 Body temperature 97.7 [degF] Aldo Ocampo MD Work Phone: [facility] 04-24-2023 14:29-0400 Body weight 53.98 kg Aldo Ocampo MD Work Phone: [facility] [employer] 04-24-2023 14:29-0400 Diastolic blood pressure 60 mm[Hg] Aldo Ocampo MD Work Phone: [facility] 04-24-2023 14:29-0400 Heart rate 77 /min Alod Ocampo MD Work Phone: [facility] 04-24-2023 14:29-0400 Respiratory rate 18 /min Aldo Ocampo MD Work Phone: [facility] 04-24-2023 14:29-0400 SaO2% (BldA) [Mass fraction] 98 % Aldo Ocampo MD Work Phone: [facility] 04-24-2023 14:29-0400 Systolic blood pressure 115 mm[Hg] Aldo Ocampo MD Work Phone: [facility] 03-04-2023 14:53-0400 Diastolic blood pressure 53 mm[Hg] Chair 1 [facility] 03-04-2023 14:53-0400 Heart rate 52 /min Chair 1 [facility] 03-04-2023 14:53-0400 Systolic blood pressure 108 mm[Hg] Chair 1 [facility] 03-04-2023 14:52-0400 SaO2% (BldA) [Mass fraction] 97 % Chair 1 [facility] 03-04-2023 10:01-0400 Body mass index (BMI) [Ratio] 20.58 kg/m2 Chair 1 [facility] 03-04-2023 10:01-0400 Body temperature 98.4 [degF] Chair 1 [facility] 03-04-2023 10:01-0400 Body weight 54.39 kg Chair 1 [facility] 03-04-2023 10:01-0400 Respiratory rate 14 /min Chair 1 [facility] 02-25-2023 14:17-0400 Diastolic blood pressure 71 mm[Hg] Chair 4 [facility] 02-25-2023 14:17-0400 Heart rate 61 /min Chair 4 [facility] 02-25-2023 14:17-0400 Systolic blood pressure 122 mm[Hg] Chair 4 [facility] 02-25-2023 12:35-0400 Body mass index (BMI) [Ratio] 20.29 kg/m2 Chair 4 [facility] 02-25-2023 12:35-0400 Body temperature 98.2 [degF] Chair 4 [facility] 02-25-2023 12:35-0400 Body weight 53.62 kg Chair 4 [facility] 02-25-2023 12:35-0400 Respiratory rate 14 /min Chair 4 [facility] 02-25-2023 12:35-0400 SaO2% (BldA) [Mass fraction] 98 % Chair 4 [facility] 02-18-2023 10:02-0400 Body height 162.6 cm Chair 4 [facility] 02-18-2023 10:02-0400 Body mass index (BMI) [Ratio] 20.67 kg/m2 Chair 4 [facility] 02-18-2023 10:02-0400 Body temperature 98.49 [degF] Chair 4 [facility] 02-18-2023 10:02-0400 Body weight 54.61 kg Chair 4 [facility] 02-18-2023 10:02-0400 Diastolic blood pressure 75 mm[Hg] Chair 4 [facility] 02-18-2023 10:02-0400 Heart rate 64 /min Chair 4 [facility] 02-18-2023 10:02-0400 Respiratory rate 16 /min Chair 4 [facility] 02-18-2023 10:02-0400 Systolic blood pressure 123 mm[Hg] Chair 4 [facility] 02-11-2023 14:44-0400 Body temperature 98.91 [degF] Bed 2 [facility] 02-11-2023 14:44-0400 Diastolic blood pressure 63 mm[Hg] Bed 2 [facility] 02-11-2023 14:44-0400 Heart rate 70 /min Bed 2 [facility] 02-11-2023 14:44-0400 Respiratory rate 18 /min Bed 2 [facility] 02-11-2023 14:44-0400 Systolic blood pressure 111 mm[Hg] Bed 2 [facility] 02-11-2023 08:55-0400 Body height 162.6 cm Bed 2 [facility] 04-04-2023 08:55-0400 Body mass index (BMI) [Ratio] 20.41 kg/m2 Bed 2 [facility] 02-11-2023 08:55-0400 Body weight 53.93 kg Bed 2 [facility] 02-11-2023 08:55-0400 SaO2% (BldA) [Mass fraction] 98 % Bed 2 [facility] 01-02-2023 14:05-0500 Body height 162.6 cm Aldo Ocampo MD Work Phone: [facility] 01-02-2023 14:05-0500 Body mass index (BMI) [Ratio] 20.8 kg/m2 Aldo Ocampo MD Work Phone: [facility] 01-02-2023 14:05-0500 Body temperature 98.01 [degF] Aldo Ocampo MD Work Phone: [facility] 01-02-2023 14:05-0500 Body weight 54.98 kg Aldo Ocampo MD Work Phone: [facility] 01-02-2023 14:05-0500 Diastolic blood pressure 70 mm[Hg] Aldo Ocampo MD Work Phone: [facility] 01-02-2023 14:05-0500 Heart rate 69 /min Aldo Ocampo MD Work Phone: [facility] 01-02-2023 14:05-0500 Respiratory rate 18 /min Aldo Ocampo MD Work Phone: [facility] 01-02-2023 14:05-0500 SaO2% (BldA) [Mass fraction] 98 % Aldo Ocampo MD Work Phone: [facility] 01-02-2023 14:05-0500 Systolic blood pressure 111 mm[Hg] Aldo Ocampo MD Work Phone: [facility] 01-01-2023 10:20-0500 Body height 162.6 cm Fernando De La Rosa MD Work Phone: [facility] 01-01-2023 10:20-0500 Body mass index (BMI) [Ratio] 21.63 kg/m2 Fernando De La Rosa MD Work Phone: [facility] 01-01-2023 10:20-0500 Body weight 57.15 kg Fernando De La Rosa MD Work Phone: [facility] 01-01-2023 10:20-0500 Diastolic blood pressure 76 mm[Hg] Fernando De La Rosa MD Work Phone: [facility] 01-01-2023 10:20-0500 Heart rate 83 /min Fernando De La Rosa MD Work Phone: [facility] 01-01-2023 10:20-0500 Systolic blood pressure 125 mm[Hg] Fernando De La Rosa MD Work Phone: [facility] 12-24-2022 10:53-0500 Body height 162.6 cm Edwige Inga CLASSROOM PARAPROFESSIONAL - SENIOR INSIGHT MANAGER INTERNATIONAL Work Phone: [facility] 12-24-2022 10:53-0500 Body mass index (BMI) [Ratio] 21.46 kg/m2 Edwige Inga CLASSROOM PARAPROFESSIONAL - SENIOR INSIGHT MANAGER INTERNATIONAL Work Phone: [facility] 12-24-2022 10:53-0500 Body weight 56.7 kg Edwige Inga CLASSROOM PARAPROFESSIONAL - SENIOR INSIGHT MANAGER INTERNATIONAL Work Phone: [facility] 12-24-2022 10:53-0500 Diastolic blood pressure 74 mm[Hg] Edwige Inga CLASSROOM PARAPROFESSIONAL - SENIOR INSIGHT MANAGER INTERNATIONAL Work Phone: [facility] 12-24-2022 10:53-0500 Heart rate 108 /min Edwige Inga CLASSROOM PARAPROFESSIONAL - SENIOR INSIGHT MANAGER INTERNATIONAL Work Phone: [facility] 12-24-2022 10:53-0500 Systolic blood pressure 174 mm[Hg] Edwige Inga CLASSROOM PARAPROFESSIONAL - SENIOR INSIGHT MANAGER INTERNATIONAL Work Phone: [facility] 12-24-2022 04:41-0500 Diastolic blood pressure 86 mm[Hg] [facility] 12-24-2022 04:41-0500 Heart rate 75 /min [facility] 12-24-2022 04:41-0500 Respiratory rate 17 /min [facility] 12-24-2022 04:41-0500 SaO2% (BldA) [Mass fraction] 100 % [facility] 12-24-2022 04:41-0500 Systolic blood pressure 124 mm[Hg] [facility] 12-24-2022 01:10-0500 Body temperature 98.3 [degF] [facility] 12-23-2022 23:35-0500 Body height 162.56 cm [facility] 12-23-2022 23:35-0500 Body mass index (BMI) [Ratio] 21.6 kg/m2 [facility] 12-23-2022 23:35-0500 Body weight 57.15 kg [facility] 11-22-2022 08:34-0500 Body height 162.6 cm Fernando De La Rosa MD Work Phone: [facility] 11-22-2022 08:34-0500 Body mass index (BMI) [Ratio] 23.09 kg/m2 Fernando De La Rosa MD Work Phone: [facility] 11-22-2022 08:34-0500 Body weight 61.01 kg Fernando De La Rosa MD Work Phone: [facility] Encounters Encounter Date Encounter Type Care Provider Facility Start: 07-05-2025 End: 07-05-2025 Emergency department patient visit No Primary Care Physician -Emergency Department Work Phone: Start: 06-16-2025 End: 06-16-2025 ambulatory [facility] Facility:[facility] Start: 05-12-2025 Encounter for genera l adult medical examination without abnormal findings Ed Physician Provider [facility] Start: 05-11-2025 End: 05-11-2025 Emergency department patient visit No Primary Care Physician -Emergency Department Work Phone: Start: 05-11-2025 End: 05-11-2025 Patient encounter procedure Remy Charles APRN.CNP Work Phone: [facility] Comment on above: Urge incontinence (P rimary Dx); Generalized abdominal pain Start: 05-11-2025 End: 05-11-2025 ambulatory SELF Facility:[facility] Start: 05-09-2025 End: 05-09-2025 Emergency department patient visit No Primary Care Physician -Emergency Department Work Phone: Start: 05-09-2025 End: 05-09-2025 Emergency department patient visit BIANCA MORENO [facility] Start: 04-19-2025 End: 04-19-2025 Emergency department patient visit No Primary Care Physician -Emergency Department Work Phone: Start: 12-22-2024 End: 12-22-2024 Emergency department patient visit Dr. Amadou Cobos DO -Emergency Department Work Phone: Start: 12-04-2024 End: 12-04-2024 Emergency department patient visit No Primary Care Physician Facility:[facility] Start: 08-10-2024 End: 08-10-2024 Emergency department patient visit No Primary Care Physician Facility:[facility] Start: 04-27-2024 End: 04-27-2024 Telemedicine consultation with patient Chang Thorpe MD Work Phone: Gynecology Start: 04-27-2024 End: 04-27-2024 ambulatory Chang Thorpe MD Work Phone: Gynecology Comment on above: History of cervical cancer (Primary Dx); Symptomatic menopausal or female climacteric states [N95.1] Start: 04-13-2024 Orders Only Eliane Hrnc frank CLASSROOM PARAPROFESSIONAL.SENIOR INSIGHT MANAGER INTERNATIONAL Work Phone: Gynecology Start: 04-12-2024 Orders Only Eliane Hrnc frank CLASSROOM PARAPROFESSIONAL.SENIOR INSIGHT MANAGER INTERNATIONAL Work Phone: Gynecology Start: 04-06-2024 Orders Only Ayleen L Grif fin CLASSROOM PARAPROFESSIONAL.SENIOR INSIGHT MANAGER INTERNATIONAL Work Phone: Gynecology Comment on above: Malignant neoplasm o f overlapping sites of cervix (HCC) (Primary Dx) Start: 04-03-2024 Telephone encounter Brandan porter CLASSROOM PARAPROFESSIONAL.SENIOR INSIGHT MANAGER INTERNATIONAL Work Phone: Gynecology Comment on above: Patient Update Start: 03-25-2024 Telephone encounter Kimberli Flores MD Work Phone: [facility] Gynecology Oncology Comment on above: Appointment Start: 03-25-2024 End: 03-25-2024 ambulatory CHANG THORPE Facility:[facility] Start: 03-25-2024 End: 03-25-2024 Follow-up encounter Chang Thorpe MD Work Phone: Gynecology Comment on above: Encounter for follow -up surveillance of cervical cancer (Primary Dx); Generalized abdominal pain; Vasomotor symptoms due to menopause Start: 03-25-2024 End: 03-25-2024 Patient encounter procedure Chang Thorpe MD Work Phone: Gynecology Start: 03-22-2024 End: 03-22-2024 Subsequent hospital visit by physician [facility] W[facility] Cat Scan Comment on above: Encounter for follow -up surveillance of cervical cancer [Z08, Z85.41] Start: 12-29-2023 End: 12-29-2023 Manual pelvic examination Rich Hernandez MD Work Phone: Gastroenterology Comment on above: Pelvic floor dysfunc tion (Primary Dx) Start: 12-29-2023 End: 12-29-2023 Telemedicine consultation with patient Rich Hernandez MD Work Phone: [facility] Start: 12-18-2023 ambulatory Chang Thorpe MD Work Phone: Gynecology Oncology Comment on above: Corey perla Start: 11-27-2023 End: 11-27-2023 ambulatory CHANG THORPE Facility:[facility] Start: 11-27-2023 Encounter for other preprocedural examination CHANG THORPE [facility] Start: 08-28-2023 End: 08-28-2023 Emergency department patient visit ALEX MIMS Facility:[id number] Start: 05-12-2023 Orders Only Fernando baer MD Work Phone: [facility] Gynecologic Oncology Comment on above: Bladder spasms (Prim marilee Dx) Start: 05-08-2023 Telephone encounter Abbi Quintana CNP Work Phone: [facility] Gynecologic Oncology Start: 05-07-2023 End: 05-07-2023 ambulatory [facility] Start: 05-07-2023 End: 05-07-2023 Office outpatient visit 15 minutes Fernando De La Rosa MD Work Phone: [facility] Gynecologic Oncology Comment on above: 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); Cystitis; Menopausal symptom Start: 04-24-2023 End: 04-25-2023 ambulatory [facility] Start: 04-24-2023 End: 04-24-2023 Subsequent hospital visit by physician Aldo Ocampo MD Work Phone: [facility] Comment on above: 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) Start: 04-22-2023 End: 04-22-2023 Emergency department patient visit SILVIA GARCIA MD Facility:[facility] Start: 03-24-2023 Telephone encounter Abbi Quintana CNP Work Phone: [facility] Gynecologic Oncology Start: 03-21-2023 End: 03-22-2023 ambulatory FERNANDO DE LA ROSA [facility] Start: 03-21-2023 End: 03-21-2023 Subsequent hospital visit by physician Fernando De La Rosa MD Work Phone: [facility] Comment on above: Stage I adenocarcino ma of cervix (CMS/HCC) (HCC); Malignant neoplasm of endocervix (HCC) Start: 03-19-2023 End: 03-20-2023 ambulatory ALDO [facility] Start: 03-19-2023 End: 03-19-2023 Subsequent hospital visit by physician Aldo Ocampo MD Work Phone: [facility] Start: 03-18-2023 End: 03-19-2023 ambulatory ALDO [facility] Start: 03-18-2023 End: 03-18-2023 Subsequent hospital visit by physician Aldo Ocampo MD Work Phone: [facility] Start: 03-17-2023 End: 03-18-2023 ambulatory ALDO [facility] Start: 03-17-2023 End: 03-17-2023 ambulatory ALDO [facility] Start: 03-16-2023 End: 03-16-2023 Subsequent hospital visit by physician Aldo Ocampo MD Work Phone: [facility] Comment on above: Arrived Start: 03-14-2023 End: 03-15-2023 ambulatory ALDO [facility] Start: 03-14-2023 End: 03-14-2023 Subsequent hospital visit by physician Aldo Ocampo MD Work Phone: [facility] Start: 03-13-2023 End: 03-14-2023 ambulatory [facility] Start: 03-13-2023 End: 03-13-2023 Subsequent hospital visit by physician Varian [facility] Start: 03-13-2023 Telephone encounter Melissa Dobson [facility] Gynecologic Oncology Comment on above: OTHER Start: 03-12-2023 End: 03-13-2023 ambulatory [facility] Start: 03-12-2023 End: 03-12-2023 Subsequent hospital visit by physician Varian [facility] Start: 03-12-2023 Telephone encounter Edwige crump APRN - SENIOR INSIGHT MANAGER INTERNATIONAL Work Phone: [facility] Gynecologic Oncology Start: 03-12-2023 End: 03-13-2023 ambulatory FERNANDO [facility] Start: 03-11-2023 End: 03-12-2023 ambulatory [facility] Start: 03-11-2023 End: 03-11-2023 Subsequent hospital visit by physician Varian [facility] Start: 03-10-2023 End: 03-11-2023 ambulatory ALDO [facility] Start: 03-10-2023 End: 03-10-2023 Subsequent hospital visit by physician Aldo Ocampo MD Work Phone: [facility] Start: 03-10-2023 End: 03-10-2023 ambulatory [facility] Start: 03-09-2023 End: 03-09-2023 Subsequent hospital visit by physician Billing Only Appointments Radiation Oncology [facility] Comment on above: Arrived Start: 03-07-2023 End: 03-08-2023 ambulatory [facility] Start: 03-07-2023 End: 03-07-2023 Subsequent hospital visit by physician Varian [facility] Start: 03-06-2023 End: 03-07-2023 ambulatory [facility] Start: 03-06-2023 End: 03-06-2023 Subsequent hospital visit by physician Varian [facility] Start: 03-05-2023 End: 03-06-2023 ambulatory [facility] Start: 03-04-2023 End: 03-04-2023 Subsequent hospital visit by physician Varian [facility] Start: 03-04-2023 End: 03-05-2023 ambulatory Fernando De La Rosa MD Work Phone: [facility] Comment on above: Stage I adenocarcino ma of cervix (CMS/HCC) (HCC); Malignant neoplasm of endocervix (HCC) Start: 03-03-2023 End: 03-04-2023 Orders Only Abbi Barahona CLASSROOM PARAPROFESSIONAL - SENIOR INSIGHT MANAGER INTERNATIONAL Work Phone: [facility] Gynecologic Oncology Comment on above: 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) Start: 03-03-2023 End: 03-03-2023 ambulatory [facility] Start: 03-02-2023 End: 03-02-2023 Subsequent hospital visit by physician Billing Only Appointments Radiation Oncology [facility] Comment on above: Arrived Start: 02-27-2023 Telephone encounter Edwige crump CLASSROOM PARAPROFESSIONAL - SENIOR INSIGHT MANAGER INTERNATIONAL Work Phone: [facility] Obstetrics & Gynecology Start: 02-26-2023 End: 02-27-2023 ambulatory EDWIGE XIONG [facility] Start: 02-26-2023 End: 02-26-2023 Subsequent hospital visit by physician Sobia Us Exam Room 1 [facility] US Imaging Comment on above: Thrombophlebitis Start: 02-25-2023 End: 02-26-2023 ambulatory Fernando De La Rosa MD Work Phone: [facility] Comment on above: Stage I adenocarcino ma of cervix (CMS/HCC) (HCC); Malignant neoplasm of endocervix (HCC) Start: 02-24-2023 End: 02-24-2023 Emergency department patient visit [address] [facility] Facility:[id number] Start: 02-24-2023 End: 02-25-2023 ambulatory [facility] Start: 02-24-2023 Telephone encounter Fernando De La Rosa MD Work Phone: [facility] Gynecologic Oncology Comment on above: Page doctor (Page Dr De La Rosa) Start: 02-24-2023 End: 02-24-2023 ambulatory [facility] Start: 02-21-2023 End: 02-22-2023 ambulatory [facility] Start: 02-21-2023 End: 02-21-2023 Subsequent hospital visit by physician Aldo Ocampo MD Work Phone: [facility] Start: 02-19-2023 End: 02-20-2023 Refill Aldo Ocampo MD Work Phone: [facility] Comment on above: Stage I adenocarcino ma of cervix (CMS/HCC) (HCC) Start: 02-18-2023 Telephone encounter Yolanda Hudson RD Oncology Supportive Care Comment on above: Nutrition Counseling Start: 02-18-2023 End: 02-18-2023 Subsequent hospital visit by physician Brock [facility] Start: 02-18-2023 End: 02-19-2023 ambulatory Fernando De La Rosa MD Work Phone: [facility] Comment on above: Stage I adenocarcino ma of cervix (CMS/HCC) (HCC) (Primary Dx); Dysuria; Malignant neoplasm of endocervix (HCC) Start: 02-17-2023 End: 02-18-2023 ambulatory [facility] Start: 02-17-2023 End: 02-17-2023 Subsequent hospital visit by physician Aldo Ocampo MD Work Phone: [facility] Start: 02-17-2023 Telephone encounter Aldo flores MD Work Phone: [facility] Comment on above: Difficulty Urinating Start: 02-17-2023 End: 02-17-2023 ambulatory [facility] Start: 02-16-2023 End: 02-16-2023 Subsequent hospital visit by physician Billing Only Appointments Radiation Oncology [facility] Comment on above: Arrived Start: 02-14-2023 End: 02-15-2023 ambulatory [facility] Start: 02-13-2023 End: 02-14-2023 ambulatory [facility] Start: 02-13-2023 End: 02-13-2023 Subsequent hospital visit by physician Varian [facility] Start: 02-12-2023 End: 02-13-2023 ambulatory ALDO [facility] Start: 02-12-2023 End: 02-12-2023 Subsequent hospital visit by physician Aldo Ocampo MD Work Phone: [facility] Start: 02-11-2023 Telephone encounter Melissa Dobson [facility] Gynecologic Oncology Comment on above: low potassium Start: 02-11-2023 End: 02-11-2023 Subsequent hospital visit by physician Varian [facility] Start: 02-11-2023 End: 02-12-2023 ambulatory Fernando De La Rosa MD Work Phone: [facility] Comment on above: Stage I adenocarcino ma of cervix ([facility]/HCC) (HCC) Start: 02-10-2023 End: 02-11-2023 ambulatory [facility] Start: 02-10-2023 End: 02-10-2023 Subsequent hospital visit by physician Aldo Ocampo MD Work Phone: [facility] Start: 02-10-2023 End: 02-10-2023 ambulatory [facility] Start: 02-09-2023 End: 02-09-2023 Subsequent hospital visit by physician Billing Only Appointments Radiation Oncology [facility] Comment on above: Arrived Start: 02-07-2023 End: 02-08-2023 ambulatory [facility] Start: 02-07-2023 End: 02-07-2023 Subsequent hospital visit by physician Varian [facility] Start: 02-07-2023 Telephone encounter Jaylin Luevano Oncology Supportive [facility] Start: 02-06-2023 End: 02-07-2023 ambulatory [facility] Start: 02-06-2023 End: 02-06-2023 Subsequent hospital visit by physician Varian [facility] Start: 02-06-2023 Telephone encounter Jaylin Luevano Oncology Supportive [facility] Start: 02-05-2023 End: 02-06-2023 ambulatory [facility] Start: 02-04-2023 End: 02-05-2023 ambulatory [facility] Start: 02-04-2023 End: 02-04-2023 Subsequent hospital visit by physician Varian [facility] Start: 02-04-2023 End: 02-05-2023 [facility] Start: 02-03-2023 End: 02-04-2023 Refill Aldo Ocampo MD Work Phone: [facility] Start: 02-03-2023 End: 02-03-2023 [facility] Start: 02-02-2023 End: 02-02-2023 Subsequent hospital visit by physician Billing Only Appointments Radiation Oncology [facility] Comment on above: Arrived Start: 01-30-2023 End: 01-31-2023 [facility] Start: 01-30-2023 End: 01-30-2023 Subsequent hospital visit by physician Aldo Ocampo MD Work Phone: [facility] Start: 01-27-2023 End: 01-27-2023 ambulatory [facility] Start: 01-26-2023 End: 01-26-2023 Subsequent hospital visit by physician Billing Only Appointments Radiation Oncology [facility] Comment on above: Arrived Start: 01-22-2023 Telephone encounter Jaylin Luevano Oncology Support[facility] Start: 01-20-2023 End: 01-20-2023 ambulatory [facility] Start: 01-19-2023 End: 01-19-2023 Subsequent hospital visit by physician Billing Only Appointments Radiation Oncology [facility] Comment on above: Arrived Start: 01-16-2023 End: 01-17-2023 ambulatory ARIES FOFANA [facility] Start: 01-16-2023 End: 01-16-2023 Subsequent hospital visit by physician Aries Fofana MD Work Phone: [facility] Start: 01-16-2023 End: 01-16-2023 Subsequent hospital visit by physician [facility] Exam Room 1 [facility] Comment on above: Malignant neoplasm o f endocervix (HCC) Start: 01-15-2023 End: 01-16-2023 ambulatory [facility] Start: 01-15-2023 End: 01-15-2023 Subsequent hospital visit by physician Billing Only Appointments Radiation Oncology [facility] Comment on above: Arrived Start: 01-10-2023 Telephone encounter Jaylin Luevano Oncology Supportive Care Start: 01-09-2023 Telephone encounter Jaylin Luevano [facility] Start: 01-03-2023 Telephone encounter Yolanda Hudson RD Oncology Supportive Care Comment on above: Nutrition Counseling Start: 01-02-2023 End: 01-03-2023 ambulatory [facility] Comment on above: Postoperative lower abdominal pain (Primary Dx); Stage I adenocarcinoma of cervix (CMS/HCC) (HCC) Start: 01-02-2023 End: 01-02-2023 Subsequent hospital visit by physician Aldo Ocampo MD Work Phone: [facility] Comment on above: Stage I adenocarcino ma of cervix (CMS/HCC) (HCC) Start: 01-01-2023 End: 01-01-2023 ambulatory [facility] Start: 01-01-2023 End: 01-01-2023 Postop follow up visit related to original px Fernando De La Rosa MD Work Phone: [facility] Gynecologic Oncology Comment on above: Post-operative state (Primary Dx); Stage I adenocarcinoma of cervix (CMS/HCC) (HCC) Start: 12-26-2022 Telephone encounter Edwige crump CLASSROOM PARAPROFESSIONAL - SENIOR INSIGHT MANAGER INTERNATIONAL Work Phone: [facility] [place] [employer] ACTIVITIES COORDINATOR Oncology Comment on above: medication refill (P atient needing refill on medication) Start: 12-24-2022 Telephone encounter Melissa Dobson [facility] [place] PARK ACTIVITIES COORDINATOR Oncology Comment on above: OTHER Start: 12-24-2022 End: 12-24-2022 ambulatory EDWIGE XIONG [facility] Start: 12-24-2022 End: 12-24-2022 Postop follow up visit related to original px Edwige Xiong CLASSROOM PARAPROFESSIONAL - SENIOR INSIGHT MANAGER INTERNATIONAL Work Phone: [facility] [place] PARK ACTIVITIES COORDINATOR Oncology Comment on above: Post-operative state (Primary Dx) Start: 12-23-2022 End: 12-24-2022 Emergency department patient visit [facility] Start: 12-23-2022 Telephone encounter Fernando De La Rosa MD Work Phone: [facility] [place] PARK ACTIVITIES COORDINATOR Oncology Start: 12-17-2022 End: 12-20-2022 Evaluation and management of inpatient [facility] Start: 12-13-2022 End: 12-13-2022 ambulatory IDALMIS J JIMBO DO-FACOG Facility:[id number] Start: 12-11-2022 End: 12-11-2022 ambulatory [facility] Start: 12-06-2022 End: 12-07-2022 ambulatory [facility] Start: 12-06-2022 End: 12-06-2022 Subsequent hospital visit by physician Marlen Preciado MD Work Phone: [facility] Comment on above: Malignant neoplasm o f endocervix (HCC) Start: 11-28-2022 End: 11-29-2022 ambulatory IDALMIS J JIMBO DO-FACOG Facility:[id number] Start: 11-25-2022 Telephone encounter Fernando De La Rosa MD Work Phone: [facility] PARK ACTIVITIES COORDINATOR Oncology Comment on above: surgery scheduling ( Scheduled at [facility]) Start: 11-22-2022 End: 11-22-2022 ambulatory [facility] Start: 11-22-2022 End: 11-22-2022 Office outpatient new 45 minutes Fernando De La Rosa MD Work Phone: [facility] PARK ACTIVITIES COORDINATOR Oncology Comment on above: 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) Start: 11-21-2022 ambulatory 837 NO FAMILY PHYSICIAN Facility:[id number] Start: 11-15-2022 End: 11-16-2022 ambulatory IDALMIS COBB DO-FAC Facility:[id number] Start: 10-09-2022 End: 10-10-2022 ambulatory IDALMIS COBB DO-[facility] Facility:[id number] Start: 2022 End: 2022 Emergency department patient visit CODY WINKLER MD Facility:[id number] Start: 05-03-2016 End: 05-03-2016 [facility] Procedures Date Procedure Procedure Detail Performing Clinician Start: 07-05-2025 Urnls dip stick/tabl et reagent auto microscopy No Primary Care Physician Start: 05-11-2025 Estimated creatinine clearance No Primary Care Physician Start: 05-11-2025 Computed tomography of abdomen and pelvis with intravenous contrast No Primary Care Physician Start: 05-11-2025 Urnls dip stick/tabl et reagent auto microscopy No Primary Care Physician Start: 05-11-2025 Urnls dip stick/tabl et rgnt auto w/o microscopy Remy Charles APRN.CNP Work Phone: Start: 05-09-2025 Urnls dip stick/tabl et reagent auto microscopy No Primary Care Physician Start: 04-19-2025 Urine culture No Primar y Care Physician Start: 04-19-2025 Urnls dip stick/tabl et reagent auto microscopy No Primary Care Physician Start: 12-22-2024 Estimated creatinine clearance No Primary Care Physician Start: 12-22-2024 Measurement of renal function No Primary Care Physician Comment on above: GFR Calc Start: 12-22-2024 Plain chest X-ray No Pr imary Care Physician Start: 12-22-2024 SARS-CoV-2, Influenz a & RSV (PCR) No Primary Care Physician Start: 03-25-2024 Follow-up visit Follow Up COREY THORPE Start: 03-22-2024 Ct abdomen & pelvis w/contrast material Chang Thorpe MD Work Phone: Start: 03-21-[address] atten uation skull base mid-thigh Fernando De La Rosa MD Work Phone: Start: 03-04-2023 Comprehensive metabo lic panel Edwige Xiong CLASSROOM PARAPROFESSIONAL - SENIOR INSIGHT MANAGER INTERNATIONAL Work Phone: Start: 02-26-2023 Dup-scan xtr veins unilateral/limited study Edwige Xiong CLASSROOM PARAPROFESSIONAL - SENIOR INSIGHT MANAGER INTERNATIONAL Work Phone: Start: 02-19-2023 Dup-scan xtr veins unilateral/limited study Edwige Xiong CLASSROOM PARAPROFESSIONAL - SENIOR INSIGHT MANAGER INTERNATIONAL Work Phone: Start: 02-18-2023 Comprehensive metabo lic panel Edwige Xiong CLASSROOM PARAPROFESSIONAL - SENIOR INSIGHT MANAGER INTERNATIONAL Work Phone: Start: 02-17-2023 Culture bacterial quanttative colony count urine Edwige Xiong CLASSROOM PARAPROFESSIONAL - SENIOR INSIGHT MANAGER INTERNATIONAL Work Phone: Start: 02-11-2023 Comprehensive metabo lic panel Edwige Xiong CLASSROOM PARAPROFESSIONAL - SENIOR INSIGHT MANAGER INTERNATIONAL Work Phone: Start: 12-24-2022 Follow-up visit Follow-up EDWIGE XIONG Start: 12-24-2022 Computed tomography of abdomen and pelvis with intravenous contrast Plan of Treatment Date Care Activity Detail Author Start: 2041 Zoster Vaccines (1 of 2) Zoste r Vaccines (1 of 2) [facility] Start: 11-27-2028 Screening for malign ant neoplasm of cervix [facility] Start: 07-11-2025 Influenza vaccination Influenza Vacc ine (#1) [facility] Start: 07-05-2025 End: 07-05-2025 [facility] Start: 07-05-2025 Bacteria identified in Urine by Culture Urine Culture [facility] Start: 05-11-2025 [facility] Start: 04-19-2025 Bacteria identified in Urine by Culture Urine Culture [facility] Start: 04-19-2025 End: 04-19-2025 [facility] Start: 04-19-2025 [facility] Start: 12-22-2024 [facility] Start: 12-22-2024 [facility] Start: 11-27-2024 Screening for malign ant neoplasm of cervix Cervical Cancer Screening [facility] Start: 10-15-2024 End: 10-15-2024 ambulatory 10/15/2024 4:30 PM EST [facility] H[facility]ology[facility]Oncology [address] [place] [address] HPV INJECTIONS Hematology/Oncology Comment on above: HPV INJECTIONS Start: 07-11-2024 Covid-19 Vaccine ( season) Covid-19 Vaccine ( season) [facility] Start: 07-11-2024 Influenza vaccination Influenz a Vaccine (Season Ended) [facility] Start: 06-18-2024 End: 06-18-2024 ambulatory 06/18/2024 4:30 PM EDT Infusion Center Hematology/Oncology [address] [place] [address] HPV INJECTIONS Hematology/Oncology Comment on above: HPV INJECTIONS Start: 04-29-2024 End: 04-29-2024 ambulatory 04/29/2024 4:00 PM EDT Distance [facility] [address] [place] [address] Chang Thorpe MD [address] [place] [address] FU Gynecology Comment on above: FU Start: 04-27-2024 End: 04-27-2024 ambulatory 04/27/2024 2:00 PM EDT Distance [facility] Gynecology [address] [place] [address] Chang Thorpe MD [address] [place] [address] FU Gynecology Comment on above: FU Start: 04-16-2024 End: 04-16-2024 ambulatory 04/16/2024 4:30 PM EDT Infusion Center Hematology/Oncology [address] [place] [address] HPV INJECTIONS Hematology/Oncology Comment on above: HPV INJECTIONS Start: 03-25-2024 End: 03-25-2024 ambulatory 03/25/2024 11:45 AM EDT Visit (SP) Office Gynecology [address] [place] [address] Chang Thorpe MD [address] [place] [address] Gynecology Comment on above: FU REVIEW CT Start: 11-10-2023 Behavioral Health Screening Behavioral Health Screening [facility] Start: 11-10-2023 Depression Assessment Depression Ass essment [facility] Start: 07-31-2023 End: 07-31-2023 Patient encounter procedure 07/31/2023 9:30 AM EDT Office Visit [facility] Gynecologic Oncology [address] [place] [address] Edwige Xiong APRN - DANN [address] [facility] [address] [address] [place], [place] [id number] [facility]nec[facility] Start: 07-11-2023 Covid-19 Vaccine ( season) Covid-19 Vaccine ( season) [facility] Start: 07-11-2023 Influenza vaccination [facility] Start: 05-07-2023 End: 05-07-2024 Follicle stimulating hormone Follicle stimulating hormone Lab Routine Menopausal symptom Expected: 05/07/2023 (Approximate), Expires: 05/07/2024 [facility] Comment on above: Expected: 05/07/2023 (Approximate), Expires: 05/07/2024 Start: 05-07-2023 End: 05-07-2024 Urinalysis complete panel - Urine Urinalysis with reflex microscopic Lab Routine Cystitis Expected: 05/07/2023 (Approximate), Expires: 05/07/2024 [facility] Work Phone: Comment on above: Expected: 05/07/2023 (Approximate), Expires: 05/07/2024 Start: 04-30-2023 End: 04-30-2023 Patient encounter procedure 04/30/2023 8:30 AM EDT Office Visit [facility] Gynecologic Oncology [address] [place] [id number] Fernando De La Rosa MD [address] [facility] [place] [address] [place] [address] [facility] Gynecologic On[facility] Start: 04-14-2023 End: 04-14-2023 Patient encounter procedure 04/14/2023 Appointment Radiation Oncology Aldo Ocampo MD [address] [place] [address] [facility] Start: 04-02-2023 End: 04-02-2023 Patient encounter procedure 04/02/2023 Office Visit Gynecologic Oncology Fernando De La Rosa MD [address] [facility] [place] [address], [address] [place] [address] [facility]nec[facility] On[facility] Start: 03-21-2023 End: 03-21-2023 Patient encounter procedure 03/21/2023 Appointment Radiology [facility] Start: 03-20-2023 End: 03-20-2023 Patient encounter [...] Therapy Fernando De La Rosa MD [address] [facility] [place] [address], [address] [place], [place] [id number] [facility] Start: 03-11-2023 End: 03-11-2023 Patient encounter procedure 03/11/2023 Appointment Radiation Oncology [facility] Start: 03-10-2023 End: 03-10-2023 Patient encounter procedure 03/10/2023 Appointment Radiation Oncology Aldo Ocampo MD [address] [place] [address] [facility] Start: 03-07-2023 End: 03-07-2023 [...] Infusion Therapy Fernando De La Rosa MD [address] [place] [address], [address] [place] [address] [facility] Start: 03-03-2023 End: 03-03-2023 Patient encounter procedure 03/03/2023 Appointment Radiation Oncology Aldo Ocampo MD [address] [place] [address] [facility] Start: 02-28-2023 End: 02-28-2023 Patient encounter procedure 02/28/2023 Appointment Radiation Oncology [facility] Start: 02-27-2023 End: 02-27-2023 Patient encounter procedure [facility] Start: 02-26-2023 End: 02-26-2023 Patient encounter procedure [facility] Start: 02-25-2023 End: 02-25-2023 Patient encounter procedure [facility] Start: 02-25-2023 End: 02-25-2023 ambulatory 02/25/2023 Infusion Infusion Therapy Fernando De La Rosa MD [address] [facility], [address] [place] [address] [facility] Start: 02-24-2023 End: 02-24-2023 Patient encounter procedure 02/24/2023 Appointment Radiation Oncology Aldo Ocampo MD [address] [place] [address] [facility] Start: 02-21-2023 End: 02-21-2023 [...] Rosa MD [address] [facility], [address] [place] [address] [facility] Start: 02-17-2023 End: 02-17-2023 Patient encounter procedure 02/17/2023 Appointment Radiation Oncology Aldo Ocampo MD [address] [place] [address] [facility] Start: 02-14-2023 End: 02-14-2023 ambulatory 02/14/2023 Infusion Infusion Therapy Fernando De La Rosa MD [address] [facility], [address] [place] [address] [facility] Start: 02-14-2023 End: 02-14-2023 Patient encounter procedure 02/14/2023 Appointment Radiation Oncology [facility] Start: 02-13-2023 End: 02-13-2023 Patient encounter procedure [facility] Gynec[facility] On[facility] Start: 02-12-2023 End: 02-12-2023 Patient encounter procedure [facility] Start: 02-11-2023 End: 02-11-2023 Patient encounter procedure 02/11/2023 Appointment Radiation Oncology [facility] Start: 02-11-2023 End: 02-11-2023 ambulatory 02/11/2023 Infusion Infusion Therapy Fernando De La Rosa MD [address] [facility] [place] [address] [facility] Start: 02-10-2023 End: 02-10-2023 Patient encounter procedure 02/10/2023 Appointment Radiation Oncology Aldo Ocampo MD [address] [place] [address] [facility] Start: 02-07-2023 End: 02-07-2023 [...] Therapy Fernando De La Rosa MD [address] [facility] [place] [address] [facility] Start: 02-03-2023 End: 02-03-2023 Patient encounter procedure 02/03/2023 Appointment Radiation Oncology Aldo Ocampo MD [address] [place] [address] [facility] Start: 01-30-2023 End: 01-30-2023 Patient encounter procedure [facility] Start: 01-16-2023 End: 01-16-2023 Patient encounter procedure 01/16/2023 Appointment Radiation Oncology Aries Fofana MD [address] [facility] [address] [place] [address] [facility] RAD ON[facility] Start: 01-15-2023 End: 01-15-2023 Patient encounter procedure 01/15/2023 Appointment Radiation Oncology Aldo Ocampo MD [address] [place] [address] [facility] Start: 01-02-2023 End: 01-02-2023 Patient encounter procedure 01/02/2023 Appointment Radiation Oncology Aldo Ocampo MD [address] [place] [address] [facility] Start: 01-01-2023 End: 01-01-2023 Patient encounter procedure [facility] PARK ACTIVITIES COORDINATOR Oncology Comment on above: Post-operative state (Primary Dx) Start: 12-30-2022 End: 12-30-2022 Patient encounter procedure 12/30/2022 Office Visit Gynecologic Oncology Fernando De La Rosa MD [address] [facility] [place], [place] [id number] [facility] PARK ACTIVITIES COORDINATOR Oncology Start: 12-17-2022 End: 12-17-2022 Admission to same day surgery center 12/17/2022 Surgery Procedural Fernando De La Rosa MD [address] [facility], [address] [place] [address] RADICAL HYSTERECTOMY WITH BILATERAL SALPINGECTOMY, BILATERAL PELVIC SENTINEL LYMPH NODE BIOPSY WITH ICG PROTOCOL [80696 (CPT )] [facility] MAIN OR Comment on above: RADICAL HYSTERECTOMY WITH BILATERAL SALPINGECTOMY, BILATERAL PELVIC SENTINEL LYMPH NODE BIOPSY WITH ICG PROTOCOL [63864 (CPT )] Start: 12-17-2022 End: 12-17-2022 Inj radioactive tracer for id of sentinel node [facility] Operating Room Start: 12-17-2022 End: 12-17-2022 Laps bi tot pel lmphadec & linda-aortic lymph bx 1 [facility] Operating Room Start: 12-17-2022 End: 12-17-2022 Rad abdl hysterectomy w/bi pelvic lmphadenectomy [facility] Operating Room Start: 12-17-2022 Subsequent hospital visit by physician 12/17/2022 Hospital Encounter Procedural Fernando De La Rosa MD [address] [facility], [address] [place] [address] [facility] MA[facility] OR Start: 12-11-2022 End: 12-11-2022 Admission to establishment [facility] Pre-Admit Testing Start: 12-06-2022 End: 12-06-2022 Patient encounter procedure 12/06/2022 Appointment Radiology [facility] PET Start: 11-22-2022 End: 11-22-2023 PET+CT Bone from skull base to mid-thigh W 18F-NaF IV PET/CT skull base to mid thigh Imaging Routine Malignant neoplasm of endocervix (HCC) Expected: 11/22/2022, Expires: 11/22/2023 [facility] Work Phone: Comment on above: Expected: 11/22/2022 , Expires: 11/22/2023 Start: 07-11-2022 Influenza vaccination Influenza Vacc ine (#1) [facility] Start: 2021 Screening for malign ant neoplasm of cervix [facility] Start: 2012 Screening for malign ant neoplasm of cervix Pap Smear [facility] Start: 2010 DTaP/Tdap/Td Vaccine s (1 - Tdap) DTaP/Tdap/Td Vaccines (1 - Tdap) [facility] Start: 2010 Hepatitis B Vaccine (1 of 3 - 19+ 3-dose series) Hepatitis B Vaccine (1 of 3 - 19+ 3-dose series) [facility] Start: 2010 Pneumococcal vaccination Pneum ococcal Vaccine (1 of 2 - PCV) [facility] Start: 2010 Urine microalbumin profile DTaP,Tdap,Td Vaccine (1 - Tdap) [facility] Start: 2010 Zoster Vaccines (1 of 2) Zoste r Vaccines (1 of 2) [facility] Start: 2009 Anxiety Screening Anxiety Screening [facility] Start: 2009 Depression Screening Depression Scre nubia [facility] Start: 2009 Diabetes mellitus screening Diabetes Screening [facility] Start: 2009 Hepatitis C screening Hepatitis C Sc reealba [facility] Start: 2009 HIV screening HIV Screening [facility] Start: 2003 Depression Screening Depression Scre nubia [facility] Start: 1997 Pneumococcal vaccination Pneum ococcal Vaccine (1 of 2 - PCV) [facility] Start: 1997 Pneumococcal Vaccine : Pediatrics (0 to 5 Years) and At-Risk Patients (6 to 64 Years) (1 - PCV) Pneumococcal Vaccine: Pediatrics (0 to 5 Years) and At-Risk Patients (6 to 64 Years) (1 - PCV) [facility] Start: 1992 MMR Vaccines (1 of 1 - Standard series) MMR Vaccines (1 of 1 - Standard series) [facility] Start: 1992 Varicella vaccination Varicell a Vaccines (1 of 2 - 2-dose childhood series) [facility] Start: 03-31-1992 COVID-19 Vaccine (#1) COVID-19 Vacci ne (#1) [facility] Start: 1991 Hepatitis B Vaccine (1 of 3 - 3-dose series) Hepatitis B Vaccine (1 of 3 - 3-dose series) [facility] Start: 1991 Hepatitis B Vaccines (1 of 3 - 3-dose series) Hepatitis B Vaccines (1 of 3 - 3-dose series) [facility] Start: 1991 HIV screening HIV Screening [facility] Start: 1991 Lipid panel Lipid Panel [facility] End: 12-29-2024 [place]ULT [place] [employer] [place]ULT [place] [facility] Endoscopy Routine Pelvic floor dysfunction 1 Occurrences starting 12/29/2023 until 12/29/2024 [facility] Work Phone: Comment on above: 1 Occurrences starti ng 12/29/2023 until 12/29/2024 CT Chest W contrast IV CT CHEST W IVCON Radiology Routine Encounter for follow-up surveillance of cervical cancer 03/22/2024 9:53 AM EDT [facility] Work Phone: End: 01-16-2023 CT Sim WO [facility] Work Phone: Comment on above: Once for 1 Occurrenc es starting 01/16/2023 until 01/16/2023 End: 03-03-2024 Magnesium [Mass/volume] in Serum or Plasma Magnesium Lab Routine Malignant neoplasm of endocervix (HCC) Once a week for 99 Occurrences starting 03/03/2023 until 03/03/2024 [facility] Work Phone: Comment on above: Once a week for 99 O ccurrences starting 03/03/2023 until 03/03/2024 OUTSIDE PROCEDURE SCAN OUTSIDE P ROCEDURE SCAN Procedures Ordered: 03/21/2023 [facility] Comment on above: Ordered: 03/21/2023 Patient Education [facility] Work Phone: Patient referral [facility] Work Phone: End: 12-06-2022 PET+CT Bone from skull base to mid-thigh W 18F-NaF IV PET/CT skull base to mid thigh Imaging Routine Malignant neoplasm of endocervix (HCC) Once for 1 Occurrences starting 12/06/2022 until 12/06/2022 [facility] Work Phone: Comment on above: Once for 1 Occurrenc es starting 12/06/2022 until 12/06/2022 Urine culture [facility] Urine culture [facility] Payers Date Payer Category Payer Self-pay 2020 Medicaid [id number] 2020 Unknown [id number] 2008 Unknown 1991 Unknown [id number] 2.16.8 [id number] 1991 Unknown [id number] 2.16.8 [id number] 1991 Unknown [id number] 2.16.8 [id number] 1991 Unknown [id number] 2.16.8 [id number] 1991 Unknown [id number] 2.16.8 [id number] 1991 Unknown [id number] 2.16.8 [id number] 1991 Unknown [id number] 2.16.8 [id number] 1991 Unknown [id number] 2.16.8 [id number] 1991 Unknown [id number] 2.16.8 [id number] 1991 Unknown [id number] 2.16.8 [id number] Unknown [id number] Unknown [id number] 2.16.8 [id number] Unknown [id number] 2.16.8 [id number] Unknown [id number] 2.16.8 [id number] Unknown [id number] 2.16.8 [id number] Unknown [id number] 2.16.8 [id number] Unknown [id number] 2.16.8 [id number] Unknown [id number] 2.16.8 [id number] Social History Date Type Detail Facility Start: 12-23[facility]22 [facility] Start: 1990 Sex Assigned At Female [facility] Start: 01-02-2023 End: 07-05-2025 Tobacco smoking status PAIS Smokes tobacco daily [facility] History of tobacco use Cigarette Smoker S [facility] Start: 01-02-2023 End: 11-27-2023 Cigarettes smoked current (pack per day) - Reported 0.5 [facility] Start: 01-02-2023 Tobacco use and exposure Smoke less tobacco non-user [facility] Start: 01-02-2023 End: 02-25-2023 Alcohol intake Ex-drinker (finding) [facility] Start: 12-17-2022 History SDOH Transpo rt Med 2 [facility] Start: 12-17-2022 History SDOH Housing Places Lived 1 [facility] Start: 1990 Sex Assigned At Not on file S [facility] Start: 11-12-2022 End: 05-07-2023 Exposure to SARS-CoV-2 (event) Not sure [facility] Start: 04-24-2023 End: 05-07-2023 Alcohol intake Current drinker of alcohol (finding) [facility] Start: 04-24-2023 End: 11-27-2023 Tobacco use panel [facility] In the past 12 month s, has lack of transportation kept you from medical appointments or from getting medications? No [facility] In the past 12 month s, was there a time when you were not able to pay the mortgage or rent on time? No [facility] Start: 04-24-2023 [facility] Start: 11-19-2023 End: 03-25-2024 Alcohol intake Current non-drinker of alcohol (finding) [facility] Start: 11-22-2022 End: 12-24-2022 Alcohol intake Lifetime non-drinker (finding) [facility] NEGATED: Highlighted row [facility] Functional Status Date Assessment Result Facility 04-01-2019 Are you deaf, or do you have serious difficulty hearing No 04/01/2019 11:30 AM Kimberli Giraldo, JAG No [facility] 04-01-2019 Are you blind, or do you have serious difficulty seeing, even when wearing glasses No 04/01/2019 11:30 AM Kimberli Giraldo, RN No [facility] 04-01-2019 Do you have serious difficulty walking or climbing stairs No 04/01/2019 11:30 AM Kimberli Giraldo, RN No [facility] 04-01-2019 Do you have difficul ty dressing or bathing No 04/01/2019 11:30 AM EDT Kimberli Amaral, RN No [facility] 04-01-2019 Because of a physica l, mental, or emotional condition, do you have difficulty doing errands alone such as visiting a physician's office or shopping No 04/01/2019 11:30 AM EDT Kimberli Amaral, RN No [facility] Mental Status Date Assessment Result Facility 12-22-2024 Cognitive function Voice/Name [facility] Work Phone: 04-01-2019 Because of a physica l, mental, or emotional condition, do you have serious difficulty concentrating, remembering, or making decisions No 04/01/2019 11:30 AM EDT Kimberli Amaral, JAG No [facility] Clinical Notes 2022 to 06-16-2025 Remy Charles APRN.SENIOR INSIGHT MANAGER INTERNATIONAL - 05/11/2025 11:54 AM LISATChang Thorpe MD - 04/27/2024 2:00 PM EDTTelephone Encounter - Brandan Hollis APRN.SENIOR INSIGHT MANAGER INTERNATIONAL - 04/03/2024 8:48 AM EDT Note Date & Type Note Facility 06-16-2025 Note HNO ID: [id number] Author: MOSES MORSE APRN.[facility] Service: ? Author Type: Nurse Practitioner Type: Progress Notes Filed: 06/16/2025 17:39 Note Text: [facility] Perla is a 34 year old female. Patient presents with: UTI: Pain with urination, belly pains x2 days HPI Nontoxic-appearing 34-year-old female past medical history malignant neoplasm of cervix presents urgent care chief complaint possible UTI. Duration symptoms 2 days. Associated symptoms dysuria frequency vaginal discomfort and dyspareunia. Patient states was seen here 1 month ago. Did have significant abdominal pain. Referred to ED. CT abdomen pelvis indicated cystitis. Placed on Bactrim positive for E. coli. Presents today for evaluation. Denies any significant abdominal pain. Rates pain 1-2 out of 10 over bladder. Has noticed some dyspareunia that has been new and bothersome in the last couple days. Denies any fevers nausea vomiting flank pain. No vaginal discharge. Past medical history prescription medications allergies reviewed. Review of Systems Constitutional: Negative for chills, fatigue and fever. Gastrointestinal: Negative for abdominal distention, abdominal pain, nausea, rectal pain and vomiting. Genitourinary: Positive for dysuria and urgency. Negative for difficulty urinating, dyspareunia, enuresis, flank pain, frequency, genital sores, hematuria, pelvic pain, vaginal bleeding, vaginal discharge and vaginal pain. Objective BP 134/78 Pulse 64 Temp 36.7 ?C (98 ?F) Resp 18 Wt 67.5 kg (148 lb 13 oz) LMP 05/31/2017 SpO2 100% BMI 25.54 kg/m? Physical Exam Exam conducted with a inventory management specialist present. Constitutional: Appearance: Normal appearance. HENT: Mouth/Throat: Mouth: Mucous membranes are moist. Cardiovascular: Rate and Rhythm: Normal rate. Pulmonary: Effort: Pulmonary effort is normal. Breath sounds: Normal breath sounds. Abdominal: Tenderness: There is abdominal tenderness in the suprapubic area. There is no right CVA tenderness, left CVA tenderness, guarding or rebound. Comments: mild Genitourinary: Labia: Right: No tenderness. Left: No tenderness. Vagina: Vaginal discharge present. Neurological: Mental Status: She is alert. {ASSESSMENT/PLAN: 1. Pain with urination - ICD9: 788.1, ICD10: R30.9 - UA DIP, URINE (POC) - BACTERIAL CULTURE, URINE POC urine negative. History of UTI with similar symptoms with suprapubic tenderness placed on Keflex. Discontinue with urine culture is negative. No evidence acute abdomen. Additionally vaginal swabs obtained. Treat accordingly test results. Is following up with LANGUAGE THERAPIST oncology. Patient was educated on supportive therapies. Patient will follow up with primary care provider as needed. Patient was instructed to immediately proceed to emergency room for any new, worsening, or symptoms lasting longer than anticipated. The patient's clinical presentation is otherwise unremarkable at this time. Based on exam and clinical finding, the patient is stable for discharge. Plan of care was discussed with patient. Patient verbalizes understanding and agrees to plan of care. This note was generated using BeQuan software. It may contain errors in wording, punctuation, or spelling. Moses Morse APRN.SENIOR INSIGHT MANAGER INTERNATIONAL History and Record Review Clinical information obtained from an independent historian. History obtained from or confirmed by: parent. External record(s) reviewed: prior outpatient record. Disposition The patient was discharged. OTC Medications were advised: Procedures [facility] 05-11-2025 Radiology Diagnostic study note [facility] Imaging Services [address] [place] [address] Abdomen/Pelvis W IV Cont ONLY MR#: [id number] Acct: [id number] Name: COREY PERLA Rep #: [id number] : 1990 F 34 From: Thais Corcoran MD PCP: Care Physician,No Primary Status: REG ER Study:Abdomen/Pelvis W IV Cont ONLY Date of E xam: 05/11/25 Exam# [id number] Ordering Dr: Ian Yepez DO PROCEDURE: ABDOMEN/PELVIS W IV CONT ONLY 05/11/2025 REASON FOR EXAM: PELVIC PAIN TECHNIQUE: ABDOMEN/PELVIS W IV CONT ONLY Coronal and Sagittal reconstruction series were provided. CONTRAST: Isovue 370 VOLUME: 100 mL One or more dose reduction techniques were used (e.g., Automated exposure control, adjustment of the mA and/or kV according to patient size, use of iterative reconstruction technique. RADIATION DOSE SUMMARY: CTDlvol: 44.28 mGy DLP: 1249.33 mGycm COMPARISON: 12/04/2024 FINDINGS: Lung bases: Mild dependent atelectasis Liver: No suspicious lesion identified within the liver, there is subtle intrahepatic biliary dilatation which is unexpected in a patient of this age who still has her gallbladder. There is no biliary dilatation and no obstructing stone noted within the extrahepatic common bile duct. Gallbladder: Unremarkable Spleen: Normal size. Pancreas: Normal size without evidence of mass surrounding inflammation or ductal dilation. Adrenals: Unremarkable Kidneys: No obstructive uropathy or suspicious solid renal lesion. Stable punctate nonobstructing renal stones. Bladder: Nonspecific circumferential bladder wall thickening can be seen with cystitis. Reproductive Organs: Not present, likely surgically absent Bowel: Nondistended fluid-filled small bowel loops suggest ileus. Retained stool noted in the colon Appendix: Normal appendix seen on coronal recon images 45 through 57 No free intraperitoneal fluid, air, or suspicious adenopathy Bones: Unremarkable CT/Abdomen/Pelvis W IV Cont ONLY IMPRESSION: Bladder distends normally with subtle circumferential bladder wall thickening which can be seen with cystitis. Please correlate with urinalysis There is subtle intrahepatic biliary dilatation which is unusual in a patient ofthis age who still has a gallbladder. There is no CT evidence of cholecystitis or extrahepatic biliary dilatation. No evidenceof a stone within the extrahepatic common bile duct. This biliary dilatation is new since the previous study No free intraperitoneal fluid, air, or suspicious adenopathy, normal appendix visualized Reading Location: [id number] CC: Dr. Ian Yepez, DO; No Primary Care Physician ~ Survey Instrument Operator: Signed [facility] 05-11-2025 Note HNO ID: [id number] Author: REMY CHARLES APRN.SENIOR INSIGHT MANAGER INTERNATIONAL Service: ? Author Type: Nurse Practitioner Type: Progress Notes Filed: 05/11/2025 11:55 Note Text: Patient was seen 3 weeks ago and treated for a UTI that showed E. coli. Patient was treated with Macrobid. Patient says she never got any better. Patient says she is not having 10 out of 10 abdominal pain and incontinence. Patient has a history of hysterectomy with cervical cancer. At this time due to 10 out of 10 abdominal pain and incontinence patient is being referred to the emergency room. Patient did take Azo this morning so the dip is an accurate but believe there is more going on than a UTI. As patient was treated appropriately. Patient agreeable. [facility] 05-11-2025 History of Present illness Narrative \Patient was seen 3 weeks ago and treated for a UTI that showed E. coli. Patient was treated with Macrobid. Patient says she never got any better. Patient says she is not having 10 out of 10 abdominal pain and incontinence. Patient has a history of hysterectomy with cervical cancer. At this time due to 10 out of 10 abdominal pain and incontinence patient is being referred to the emergency room. Patient did take Azo this morning so the dip is an accurate but believe there is more going on than a UTI. As patient was treated appropriately. Patient agreeable. documented in this encounter [facility] 04-19-2025 Discharge summary [facility] 04-27-2024 History of Present illness Narrative TELEVISIT PROGRESS NOTE I have communicated my name and active licensure. The patient's identity and physical location were verified at the time of this visit. Either the patient or their legal marketing development representative has been informed of the risks [...] and would like to re-establish care with PARK ACTIVITIES COORDINATOR/ONC. Last office visit: 11/27/23 IMAGING: PET SCAN- [...] states she still has been unable to crop picker the estrogen patch because a persistently high [...] last visit. Patient has been unable to crop picker estrogen patch due to high copay. We discussed alternative option for oral estrogen replacement with estradiol. 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 PLAN: Rx estrace 1 mg daily Follow-up in 6 months with surveillance visit with Dr. Maldonado PARK ACTIVITIES COORDINATOR onc in [place] per patient request Continue HPV vaccines Chang Thorpe MD 5 minutes discussing plan of care, rx med and coordinating follow up documented in this encounter [facility] 04-27-2024 Note HNO ID: [id number] Author: CHANG THORPE MD Service: ? Author Type: Physician Type: Progress Notes Filed: 04/27/2024 15:48 Note Text: TELEVISIT PROGRESS NOTE I have communicated my name and active licensure. The patient's identity and physical location were verified at the time of this visit. Either the patient or their legal marketing development representative has been informed of the risks [...] and would like to re-establish care with PARK ACTIVITIES COORDINATOR/ONC. Last office visit: 11/27/23 IMAGING: PET SCAN- [...] states she still has been unable to crop picker the estrogen patch because a persistently high [...] estrogen replacement therapy (more content not included)... [facility] 04-03-2024 Telephone encounter Note had previously discussed HPV vaccination series. Can you please see if patient plans to get here at [place] versus another office? Thanks so much [facility] Work Phone: 04-03-2024 Miscellaneous Notes had previously discussed HPV vaccination series. Can you please see if patient plans to get here at [place] versus another office? Thanks so much documented in this encounter [facility] 03-25-2024 Telephone encounter Note [facility] and schedule appt with Dr. Esha Fowler 03/25/24 [facility] 03-25-2024 Miscellaneous Notes [facility] and schedule appt with Dr. Esha Fowler 03/25/24 documented in this encounter [facility] 03-25-2024 History of Present illness Narrative DATE [...] and would like to re-establish care with PARK ACTIVITIES COORDINATOR/ONC. Last office visit: 11/27/23 IMAGING: PET SCAN- [...] with Dr Fernando De La Rosa at [facility] in [place] on 12/17/2022 with tumor size measuring 4.8 [...] months with surveillance visit with Dr. Maldonado PARK ACTIVITIES COORDINATOR onc in [place] per patient request Ordered HPV vaccines SCRIBE ATTESTATION: By signing my name below, I,Deanne Reyes [employer] attest that this documentation has been prepared under the direction and in the presence of Chang Thorpe MD Electronically Signed: Jason Avina. March 25, 2024 12:34 PM. Chang Thorpe MD Medical Decision Making: Problems: Moderate: 2+ stable chronic illnesses Data: Unique test result(s) reviewed: 2 Risk: Low: Low risk from testing/treatment Medical Decision Making Level: 3 - Low documented in this encounter [facility] 03-25-2024 Note HNO ID: [id number] Author: CHANG THORPE MD Service: ? Author [...] and would like to re-establish care with PARK ACTIVITIES COORDINATOR/ONC. Last office visit: 11/27/23 IMAGING: PET SCAN- [...] with Dr Fernando De La Rosa at [facility] in [place] on 12/17/2022 with tumor size measuring 4.8 [...] stable from November (more content not included)... [facility] 03-22-2024 History of Present illness Narrative Radiology [...] PATIENT PRESENTS WITH AN IMPLANTABLE OR ATTACHED CHOIR TEACHER: No ALLERGIES: Reviewed and unchanged CONTRAST ALLERGY: [...] TIME: 1:51 PM documented in this encounter [facility] 12-29-2023 History of Present illness Narrative Virtual visit, 20 minutes, patient agrees I have communicated my name and active licensure. The patient's identity and physical location were verified at the time of this visit. Either the patient or their legal marketing development representative has been informed of the risks [...] try squatty potty. Intussusception is incidental. Rich Hernandez MD Answers submitted by the patient for [...] with oil: No documented in this encounter [facility] 11-27-2023 Note HNO ID: [id number] Author: CHANG THORPE MD Service: ? Author [...] and would like to re-establish care with PARK ACTIVITIES COORDINATOR/ONC. Patient reports that she presented to Dr Fernando De La Rosa at [facility] in [place] in Sep 2022 for evaluation of her [...] lower extremity edema, or palpitations. No recent MT (within 6 months), cardiac stent, cardiac surgery, gangrene, or PVD. No history of hypertension. BREAST: No breast lumps, skin changes, nipple discharge, or adenopathy. GI: Reports abdominal pain, decreased appetite and painful bowel movements. No prior history of esophageal varicies or ascites. Patient denies drinking >2 alcoholic beverages a day. PARK ACTIVITIES COORDINATOR: No vaginal bleeding or discharge.No vulvar bumps, lesions, pruritis, or pain. : No dysuria, gross hematuria, urinary frequency, urinary urgency, or incontinence. No history of renal failure, dialysis, or recent UTI (<6 weeks). MUSCULOSKELETAL: No muscle weakness or joint pain. SKIN: No skin les (more content not included)... [facility] 08-28-2023 Note ED Nursing Discharge Summary Entered On: 08/28/2023 12:22 EDT Performed On: 08/28/2023 12:22 EDT by Valerie Altamirano SC Information [id number] ED IV's : No IV ED IV Site Assessment : No IV ED Vitals Completed : Yes ED Final Assessment Completed : Yes ED Progress Note Completed : Yes Complete all PRN/Pain response forms? : Yes ED Disassociate Patient from Monitor : Yes Updated Depart Time : Yes ED Belongings sent w patient [id number] : Not applicable Valerie Altamirano - 08/28/2023 12:22 EDT Education Instructions given to : Patient TeachBack Methodology : TeachBack Barriers to Learning : None evident Valerie Altamirano - 08/28/2023 12:22 EDT ED Assistance Summary Assistance Given? : No Valerie Altamirano - 08/28/2023 12:22 EDT [facility] 05-12-2023 Telephone encounter Note Patient called, urinalysis [...] therapy. Order placed for consultation for urogynecology. [facility] 05-12-2023 Miscellaneous Notes Patient called, urinalysis does [...] consultation for urogynecology. documented in this encounter [facility] 05-08-2023 Telephone encounter Note Pt aware of UA results, culture pending. Will call pt when culture results. Pt verbalized understanding, no further questions. [facility] Work Phone: 05-08-2023 Telephone encounter Note ----- Message from Fernando De La Rosa MD sent at 05/08/2023 6:12 AM EDT ----- Plz call, UA looks good, will await culture. ----- Message ----- From: Great[facility], [facility] Lab Results In Sent: 05/08/2023 6:04 AM EDT To: Fernando De La Rosa MD [facility] 05-08-2023 Miscellaneous Notes Pt aware of UA results, culture pending. Will call pt when culture results. Pt verbalized understanding, no further questions. ----- Message from Fernando De La Rosa MD sent at 05/08/2023 6:12 AM EDT ----- Plz call, UA looks good, will await culture. ----- Message ----- From: [facility], [facility] Lab Results In Sent: 05/08/2023 6:04 AM EDT To: Fernando De La Rosa MD documented in this encounter [facility] 05-07-2023 History of Present illness Narrative CC: [...] per day. She was seen in the [facility] emergency room couple weeks ago and was [...] noon and 500 mg before bedtime. HYDROcodone-acetaminophen ([place]) 5-325 MG tablet Take 1 tablet by [...] nursing note reviewed. Exam conducted with a inventory management specialist present. Constitutional: Appearance: Normal appearance. Abdominal: General: [...] patient like to have her follow-up at [facility] as she lives close to [facility] and has seen our nurse practitioner Tray in the past. We will set her up to see our nurse practitioner in 3 months. I will call her with the [facility] as well as urinalysis result. Total time spent with counseling, review of pathology report and plan for long-term follow-up was 35 minutes documented in this encounter [facility] 04-24-2023 Nurse Note The patient is here at [facility] by herself for follow up with Dr. Ocampo. The patient denies any skin issues at the previous site of radiation. The patient states she is having 7/10 right abdominal pain that radiates to her right rib cage. She states she was at [facility] ED on 04/22/23. She was informed by [...] with Dr. De La Rosa for 04/30/23. [facility] 04-24-2023 Nurse Note Under the direction of Dr. Ocampo, the RN gave the patient a small and medium vaginal dilator. The RN gave and reviewed vaginal dilator use and care. The patient verbalized understanding. [facility] 04-24-2023 Nurse Note The patient is here at [facility] by herself for follow up with Dr. Ocampo. The patient denies any skin issues at the previous site of radiation. The patient states she is having 7/10 right abdominal pain that radiates to her right rib cage. She states she was at [facility] ED on 04/22/23. She was informed by [...] patient verbalized understanding. documented in this encounter [facility] 04-22-2023 Note ED Nursing Discharge Summary Entered On: 04/22/2023 16:29 EDT Performed On: 04/22/2023 16:29 EDT by Zoie Solis RN SC Information [id number] ED IV's : No IV ED IV Site Assessment : Yes, Completed in [facility] ED Vitals Completed : N/A ED Final Assessment Completed : N/A ED Progress Note Completed : N/A Complete all PRN/Pain response forms? : No ED Disassociate Patient from Monitor : No Updated Depart Time : No (not needed time is correct) ED Belongings sent w patient [id number] : Not applicable Zoie Solis RN - 04/22/2023 16:29 EDT Education TeachBack Methodology : Explanation, Printed Material Barriers to Learning : None evident Zoie Solis RN - 04/22/2023 16:29 EDT ED Assistance Summary Assistance Given? : No Zoie Solis RN - 04/22/2023 16:29 EDT [facility] 03-24-2023 Telephone encounter Note Pt aware of PET results, will follow up with Dr. De La Rosa next week. Pt verbalized understanding, no further questions. [facility] Phone: 03-24-2023 Telephone encounter Note ----- Message [...] EDT To: Fernando De La Rosa MD [facility] 03-24-2023 Miscellaneous Notes Pt aware of PET [...] La Rosa MD documented in this encounter [facility] 03-13-2023 Telephone encounter Note Pt informed will repeat PET scan. Pt verbalized understanding. [facility] 03-13-2023 Miscellaneous Notes Pt informed will repeat PET scan. Pt verbalized understanding. Called pt with OV with Dr. De La Rosa following completion of cisplatin/radiation. Pt is requesting a follow up scan after completion. documented in this encounter [facility] 03-13-2023 Telephone encounter Note Called pt with OV with Dr. De La Rosa following completion of cisplatin/radiation. Pt is requesting a follow up scan after completion. [facility] 03-12-2023 Note Pt arrived ambulator y for [...] is aware of her hydration appointment tomorrow. [facility] 03-12-2023 Telephone encounter Note Called my [facility] infusion center and spoke to Amisha regarding adding 20 M EQ of potassium to patient's post hydration after chemotherapy. Verbalizes understanding [facility] 03-12-2023 Miscellaneous Notes Called my [facility] infusion center and spoke to Amisha regarding adding 20 M EQ of potassium to patient's post hydration after chemotherapy. Verbalizes understanding documented in this encounter [facility] 03-04-2023 History of Present illness Narrative Patient [...] ambulatory to Radiation. documented in this encounter [facility] 02-27-2023 Telephone encounter Note Called patient with negative urine culture and also called concerning ultrasound of left superficial clot. Has improved and has partial compressibility. Instructed patient to continue heat elevation and ibuprofen. Patient verbalizes understanding and encouraged to call with any worsening symptoms. [facility] 02-27-2023 Miscellaneous Notes Called patient with negative urine culture and also called concerning ultrasound of left superficial clot. Has improved and has partial compressibility. Instructed patient to continue heat elevation and ibuprofen. Patient verbalizes understanding and encouraged to call with any worsening symptoms. documented in this encounter [facility] 02-25-2023 History of Present illness Narrative ARRIVAL NOTE INFUSION Patient is here for IV hydration Labs were not ordered Patient tolerated IV hydration well. Vitals obtained post administration. PIV d/c'd angio cath intact. Patient stable and ambulatory upon discharge. documented in this encounter [facility] 02-24-2023 Note ED Nursing Discharge Summary Entered On: 02/24/2023 18:55 EDT Performed On: 02/24/2023 18:53 EDT by Karina Encinas RN SC Information [id number] ED IV's : No IV ED IV Site Assessment : No IV ED Vitals Completed : N/A ED Final Assessment Completed : Yes ED Progress Note Completed : Yes Complete all PRN/Pain response forms? : N/A ED Disassociate Patient from Monitor : N/A Updated Depart Time : No (not needed time is correct) ED Belongings sent w patient [id number] : Not applicable Karina Encinas RN - 02/24/2023 18:55 EDT Education TeachBack Methodology : Explanation, Printed Material Barriers to Learning : None evident Karina Encinas RN - 02/24/2023 18:55 EDT ED Assistance Summary Assistance Given? : No Karina Encinas RN - 02/24/2023 18:55 EDT [facility] 02-24-2023 Telephone encounter Note Name of caller requesting page:Juan Phone Number of caller: [phone] Facility requesting page: On-Call Finder Reason for Page: Update on patient Provider paged: Dr De La Rosa Practice Name of paged provider: Violet Page Placed to #: On-Call Finder Time Page was sent or provider contacted: 4:39pm Page Content: Please call [facility] Dieter ([phone]). Pt has increased pelvic pain/pressure. small amount urination. [facility] 02-24-2023 Miscellaneous Notes Name of caller requesting page:Juan Phone Number of caller: [phone] Facility requesting page: On-Call Finder Reason for Page: Update on patient Provider paged: Dr De La Rosa Practice Name of paged provider: Violet Page Placed to #: On-Call Finder Time Page was sent or provider contacted: 4:39pm Page Content: Please call Sergey Garcias ([phone]). Pt has increased pelvic pain/pressure. small amount urination. documented in this encounter [facility] 02-18-2023 Note Orders placed for sl ightly swollen and tender/painful to touch. Will place US for evaluation of a blood clot. [facility] 02-18-2023 Telephone encounter Note Orders placed for slightly swollen and tender/painful to touch. Will place US for evaluation of a blood clot. [facility] 02-18-2023 Miscellaneous Notes Orders placed for slightly swollen and tender/painful to touch. Will place US for evaluation of a blood clot. documented in this encounter [facility] 02-18-2023 Telephone encounter Note Follow up phone [...] as well as a copy of the Jesúsie Booklet. Phone call was made to Infusion number as well, and a message was left for nursing to provide items stated to the pt. Continue to monitor and follow. FRANKLYN Peres CDE [facility] 02-18-2023 Miscellaneous Notes Follow up phone call [...] FRANKLYN Peres CDE documented in this encounter [facility] 02-18-2023 History of Present illness Narrative ARRIVAL NOTE INFUSION Patient is here for chemotherapy and lab draw Labs were drawn via peripheral IV 1135 Spoke with Melissa at Dr. Goldsmith's office. Patient continues to have pelvic pressure, difficulty urinating and emptying bladder. Urinalysis was obtained yesterday. Call placed to lab and specimen did not reflex to culture. If dr would like a culture, it will need to be ordered. Notified that potassium is 3.1. She is taking PO potassium at home as prescribed. Awaiting a returned call back. 1205 Edwige Xiong HEAD REFRIGERATION ENGINEER is placing order for culture of urine. [...] office regarding scheduling. documented in this encounter [facility] 02-17-2023 Telephone encounter Note Pt. Here for OTV and c/o inability to empty bladder and dysuria. Dr. Ocampo would like a UA with reflex to culture. Order routed to physician for approval. [facility] 02-17-2023 Miscellaneous Notes Pt. Here for OTV and c/o inability to empty bladder and dysuria. Dr. Ocampo would like a UA with reflex to culture. Order routed to physician for approval. documented in this encounter [facility] 02-12-2023 Telephone encounter Note Pt missed a call. Informed her of the prn hydration plans and oral potassium called in yesterday. [facility] 02-12-2023 Miscellaneous Notes Pt missed a call. Informed her of the prn hydration plans and oral potassium called in yesterday. Pt potassium is 3.1 today. Amisha to give 20 at infusion today. Call in 20 meq of oral potassium daily. documented in this encounter [facility] 02-11-2023 Telephone encounter Note Pt potassium is 3.1 today. Amisha to give 20 at infusion today. Call in 20 meq of oral potassium daily. [facility] 02-11-2023 History of Present illness Narrative ARRIVAL NOTE INFUSION Patient is here for chemotherapy and lab draw Labs were drawn via peripheral IV 1020 Per Edwige Xiong NP, give KCl 10 meq in [...] use of antiemetics. documented in this encounter [facility] 02-07-2023 Telephone encounter Note This worker received patient's [facility] glenys application from front office representative at [facility]. Reached out to patient on this date to assist patient with completing the application over the phone. This worker faxed the application to the [facility] at fax # [phone]. No other needs reported at this time. Patient has this worker's contact information and voices understanding to reach out if supportive care needs or questions arise. [facility] 02-07-2023 Miscellaneous Notes This worker received patient's [facility] glenys application from front office representative at [facility]. Reached out to patient on this date to assist patient with completing the application over the phone. This worker faxed the application to the [facility] at fax # [phone]. No other needs reported at this time. Patient has this worker's contact information and voices understanding to reach out if supportive care needs or questions arise. documented in this encounter [facility] 02-06-2023 Telephone encounter Note Reached out to patient on this date via phone to follow up regarding the [facility] glenys application this worker provided to patient previously. Patient states she has the application completed she just has not had a chance to submit it yet. Encouraged patient to bring the completed application to [facility] if she would like assistance submitting it. Notified front office representative, Leonela Tong that patient may be bringing an application for this worker. [facility] 02-06-2023 Miscellaneous Notes Reached out to patient on this date via phone to follow up regarding the [facility] glenys application this worker provided to patient previously. Patient states she has the application completed she just has not had a chance to submit it yet. Encouraged patient to bring the completed application to [facility] if she would like assistance submitting it. Notified front office representative, Leonela Tong that patient may be bringing an application for this worker. documented in this encounter [facility] 02-03-2023 Telephone encounter Note Request for medication refill pended and routed to physician for approval. [facility] 02-03-2023 Miscellaneous Notes Request for medication refill pended and routed to physician for approval. documented in this encounter [facility] 01-22-2023 Telephone encounter Note Received return call from patient on this date. Notified patient that the gas gift card and [employer] application this worker mailed to patient were returned to sender. The plan is patient will crop picker the gift card and [place] application from [facility] when she is there for a radiation appointment on 01/30/23. Patient voices understanding to reach out if additional supportive care needs or questions arise. [facility] 01-22-2023 Miscellaneous Notes Received return call from patient on this date. Notified patient that the gas gift card and [employer] application this worker mailed to patient were returned to sender. The plan is patient will crop picker the gift card and [place] application from [facility] when she is there for a radiation appointment on 01/30/23. Patient voices understanding to reach out if additional supportive care needs or questions arise. documented in this encounter [facility] 01-22-2023 Telephone encounter Note The [employer] application and gas gift card this worker mailed to patient were returned to sender. This worker reached out to patient on this date to let her know the mailing was returned to this worker and to discuss another plan to get the mailing to patient. No answer. Left voicemail requesting return call. [facility] 01-22-2023 Miscellaneous Notes The [employer] application and gas gift card this worker mailed to patient were returned to sender. This worker reached out to patient on this date to let her know the mailing was returned to this worker and to discuss another plan to get the mailing to patient. No answer. Left voicemail requesting return call. documented in this encounter [facility] 01-10-2023 Telephone encounter Note Reached out to patient on this date via phone. Introduced self and role. 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 Currently patient is not working because she had a recent surgery and she will be undergoing treatments for her cancer diagnosis. Patient states usually she lives with her parents but right now she is staying with her significant other because he lives closer to [facility], where patient will be receiving daily treatments. Patient states her significant other's address is still about 30 minutes away from [facility] so patient is concerned about the cost of gas getting to and from treatments. Provided education on the [facility] glenys application patient can complete [...] other's address (where she is currently staying) [address], [address] [place] [address]. Application and gift card mailed. No other needs reported at this time. Patient has this worker's contact information and voices understanding to reach out if supportive care needs or questions arise. [facility] 01-10-2023 Miscellaneous Notes Reached out to patient on this date via phone. Introduced self and role. 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 Currently patient is not working because she had a recent surgery and she will be undergoing treatments for her cancer diagnosis. Patient states usually she lives with her parents but right now she is staying with her significant other because he lives closer to [facility], where patient will be receiving daily treatments. Patient states her significant other's address is still about 30 minutes away from [facility] so patient is concerned about the cost of gas getting to and from treatments. Provided education on the [facility] glenys application patient can complete [...] other's address (where she is currently staying) [address], [address] [place] [address]. Application and gift card mailed. No other needs reported at this time. Patient has this worker's contact information and voices understanding to reach out if supportive care needs or questions arise. documented in this encounter [facility] 01-09-2023 Note Received referral fr Ana Laura Francisco to contact patient regarding financial concerns. Reached out to patient on this date via phone. No answer. Left voicemail requesting return call. [facility] 01-09-2023 Telephone encounter Note Received referral from Ana Laura Peres to contact patient regarding financial concerns. Reached out to patient on this date via phone. No answer. Left voicemail requesting return call. [facility] 01-09-2023 Miscellaneous Notes Received referral from Ana Laura Peres to contact patient regarding financial concerns. Reached out to patient on this date via phone. No answer. Left voicemail requesting return call. documented in this encounter [facility] 01-03-2023 Note Referral received, t rukhsana cunningham. Pt. Confirms that she has lost ~35# [...] fluid intake. Explained support services, inclusive of National Sales Representative and Financial Navigator. Pt. With financial concerns related to gas cost, since she will have daily treatment which will inhibit her from working. Recommend and will provide referral to National Sales Representative and Financial Navigator. Provided contact information for pt. To call with any additional questions/concerns. Continue to monitor and follow. FRANKLYN Peres [facility] 01-03-2023 Telephone encounter Note Referral received, [...] fluid intake. Explained support services, inclusive of National Sales Representative and Financial Navigator. Pt. With financial concerns related to gas cost, since she will have daily treatment which will inhibit her from working. Recommend and will provide referral to National Sales Representative and Financial Navigator. Provided contact information for pt. To call with any additional questions/concerns. Continue to monitor and follow. FRANKLYN Peres CDE [facility] 01-03-2023 Miscellaneous Notes Referral received, thank you. [...] fluid intake. Explained support services, inclusive of National Sales Representative and Financial Navigator. Pt. With financial concerns related to gas cost, since she will have daily treatment which will inhibit her from working. Recommend and will provide referral to National Sales Representative and Financial Navigator. Provided contact information for pt. To call with any additional questions/concerns. Continue to monitor and follow. FRANKLYN Peres CDE documented in this encounter [facility] 01-02-2023 Telephone encounter Note Approved Dilaudid, 4 mg oral every four hours using [employer] verification system. [facility] 01-02-2023 Miscellaneous Notes Approved Dilaudid, 4 mg oral every four hours using [employer] verification system. Dr. Ocampo assessed the patient during a new consult appointment. Dr. Ocampo gave a verbal order for Dilaudid 4mg every 4 hours as needed for severe pain and Zofran 8mg 1 hour prior to radiation and 6 hours after radiation. Request for medication fill pended and routed to physician for approval. documented in this encounter [facility] 01-02-[address] Ocampo assessed the patient during a new consult appointment. Dr. Ocampo gave a verbal order for Dilaudid 4mg every 4 hours as needed for severe pain and Zofran 8mg 1 hour prior to radiation and 6 hours after radiation. Request for medication fill pended and routed to physician for approval. [facility] 01-02-2023 Note RADIATION ONCOLOGY I NITIAL CONSULTATION PATIENT: Corey Perla DATE OF SERVICE: 01/02/2023 : 1990 AGE: 32 y.o. PRIMARY SITE AND HISTOPATHOLOGY: pT1b3, G1 adenocarcinoma of the cervix. 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 Radiation Oncology HISTORY OF PRESENT ILLNESS: [...] Pelvic Nodes Examined 10 Number of Pelvic Gifford Nodes Examined 8 Total Number of Para-aortic [...] Category pT1b3 The patient is here at [facility] with her boyfriend for a new consult [...] She states she (more content not included)... [facility] 01-02-2023 Nurse Note The patient is here at [facility] with her boyfriend for a new consult [...] patient resource guide. The patient verbalized understanding. [facility] 01-02-[address] Ocampo reviewed consent with the patient. The patient signed consent. The RN signed as a witness. The RN gave and reviewed skin care instructions with the patient. The patient verbalized understanding. [facility] 01-02-2023 Nurse Note The patient is here at [facility] with her boyfriend for a new consult [...] patient verbalized understanding. documented in this encounter [facility] 01-01-2023 History of Present illness Narrative Postop [...] Pelvic Nodes Examined 10 Number of Pelvic Gifford Nodes Examined 8 Total Number of Para-aortic [...] heat pad for the hematoma and continued tbsb-nsd-yzhkhln medicine. We will also recommend stopping the Eliquis. Pt educated on cisplatin and radiation. Went over nausea/vomiting and calling in Lio Socialan/compazine to [facility] in [place]. Pt informed of cisplatin being hard on [...] once all scheduled. documented in this encounter [facility] 01-01-2023 Miscellaneous Notes Addended by: MELISSA ZEPEDA on: 01/01/2023 12:01 PM Modules accepted: Orders documented in this encounter [facility] 01-01-2023 Note Addended by: MELISSA JACOBSON on: 01/01/2023 12:01 PM Modules accepted: Orders [facility] 01-01-2023 Note Addended by: MELISSA JACOBSON on: 01/01/2023 12:01 PM Modules accepted: Orders [facility] 12-26-2022 Telephone encounter Note Patient back patient [...] days. OARRS report ran. Patient verbalizes understanding [facility] 12-26-2022 Miscellaneous Notes Patient back patient is [...] Patient verbalizes understanding documented in this encounter [facility] 12-26-2022 Miscellaneous Notes Patients mother called in states her daughter is still having a lot of pain and she is out of pain medication and needs a refill she uses [facility] in [place] documented in this encounter [facility] 12-26-2022 Telephone encounter Note Patients mother called in states her daughter is still having a lot of pain and she is out of pain medication and needs a refill she uses [facility] in [place] [facility] 12-24-2022 History of Present illness Narrative Chief [...] NODE ROBOTIC (XI) LAPAROSCOPY PELVIC LYMPHADENECTOMY WITH KUSUM-AORTIC SAMPLING on 12/17/22 and final pathology showed: [...] NODE ROBOTIC (XI) LAPAROSCOPY PELVIC LYMPHADENECTOMY WITH KUSUM-AORTIC SAMPLING for Malignant neoplasm of endocervix. Doing [...] De La Rosa. documented in this encounter [facility] 12-24-[address] scan was done at [facility], Ct is now in PACS. [facility] 12-24-[address] scan was done at [facility], Ct is now in PACS. Called pt to let her know she has an appt this am at 1030. Pt verbalized understanding. documented in this encounter [facility] 12-24-2022 Telephone encounter Note Called pt to let her know she has an appt this am at 1030. Pt verbalized understanding. [facility] 12-23-2022 Telephone encounter Note Called with path report. Also complaining of worsening right sided pain. Is still using Dilaudid [id number]-lypbl. Recommend that the patient go to the emergency room if she is having increasing pain. I did refill her Dilaudid 2 mg tablets dispense 30 to last for the next 5 days. [facility] 12-23-2022 Miscellaneous Notes Called with path report. Also complaining of worsening right sided pain. Is still using Dilaudid vecldq-pho-phyik. Recommend that the patient go to the [...] not working please call moms number at [phone]. Mom would like new pain med called to [facility] in [place]. Patient's sister is calling on behalf of Corey. They have some post surgery questions. documented in this encounter [facility] 12-23-2022 Telephone encounter Note Called patient is [...] if pain is uncontrollable. Patient verbalizes understanding [facility] Work Phone: 12-23-2022 Miscellaneous Notes Called patient [...] Patient verbalizes understanding documented in this encounter [facility] 12-23-2022 Telephone encounter Note Spoke with pt she is uncontrollably crying with rt sided pain. Pt mom states pain not under control. Pt states before she takes dilaudid 2 mg she is 10/10 pain and after dilaudid 8/10 pain. Pt cant rotate motrin and using the 500 mg tylenol. Pt number not working please call moms number at [phone]. Mom would like new pain med called to [facility] in [place]. [facility] 12-23-2022 Telephone encounter Note Patient's sister is calling on behalf of Corey. They have some post surgery questions. [facility] 12-17-2022 Note Problem: Pain Goal: My pain/discomfort [...] My discharge needs are met Outcome: Progressing [facility] 12-17-2022 Note Traffic Rate Analyst Discharge Summar y Patient Name: Corey Perla [...] Your Medications These medications were sent to [facility] [address] [place], [place] [id number] Hours: Friday to Friday 10 am to 6 pm acetaminophen 500 MG tablet Eliquis 2.5 MG tablet HYDROmorphone 2 MG tablet Senexon-S 8.6-50 MG tablet Activity: activity as tolerated Diet: regular diet Follow up: [address] De La Rosa Condition on discharge: good and stable Discharge Date: 12/20/22 Comments: Home care, Follow-up care, restrictions reviewed. Noble Wilburn DO 12/20/2022, 3:44 PM [facility] 12-17-2022 Note Patient: Corey Machuca Joy er Procedure Summary Date: 12/17/22 Room / Location: [facility] OR [address] [place] [address] Operating Room Anesthesia Start: 951 Anesthesia Stop: 120 Procedures: RADICAL HYSTERECTOMY WITH BILATERAL SALPINGECTOMY, BILATERAL PELVIC SENTINEL LYMPH NODE BIOPSY WITH ICG PROTOCOL (Bilateral: Abdomen) LYMPHANGIOGRAPHY FOR IDENTIFICATION SENTINEL NODE (Bilateral) ROBOTIC (XI) LAPAROSCOPY PELVIC LYMPHADENECTOMY WITH KUSUM-AORTIC SAMPLING (Bilateral: Abdomen) Diagnosis: Malignant neoplasm of [...] once all PACU criteria has been met. [facility] 12-17-2022 Note Patient: Corey Machuca Joy er Procedure Summary Date: 12/17/22 Room / Location: [facility] OR [address] [place] [address] Operating Room Anesthesia Start: 951 Anesthesia Stop: 1207 Procedures: RADICAL HYSTERECTOMY WITH BILATERAL SALPINGECTOMY, BILATERAL PELVIC SENTINEL LYMPH NODE BIOPSY WITH ICG PROTOCOL (Bilateral: Abdomen) LYMPHANGIOGRAPHY FOR IDENTIFICATION SENTINEL NODE (Bilateral) ROBOTIC (XI) LAPAROSCOPY PELVIC LYMPHADENECTOMY WITH KUSUM-AORTIC SAMPLING (Bilateral: Abdomen) Diagnosis: Malignant neoplasm of [...] start time until discharged from PACU ([id number]) MIPS #[id number] Anesthesiology Smoking Abstinence The patient is [...] opportunity for questions and acknowledgement of understanding. [facility] 12-17-2022 Note Peripheral Block Time Out: 12/17/2022 10:00 AM Patient location during procedure: Procedural Start time: 12/17/2022 10:00 AM End time: 12/17/2022 10:07 AM Reason for block: at surgeon's request and post-op pain management Staffing Performed: THREAD MACHINE OPERATOR Resident/THREAD MACHINE OPERATOR: DAIJA Calvo CRNA Preanesthetic Checklist Completed: patient identified, IV checked, site marked, risks and benefits discussed, surgical consent, monitors and equipment checked, pre-op evaluation and timeout performed Region: [place] Primary: TAP (60ml of Bupivacaine 0.375% with dexamethasone 0.01% with epinephrine 1:200,000 divided evenly bilaterally) Peripheral Block Patient position: supine Prep: ChloraPrep Patient monitoring: heart rate, rental coordinator and continuous pulse ox O2: Room air [...] injection and Local anesthetic injected without difficultyMedications nhbIFJBKtmdbh-yqnzcvlwxkm-mprmzxdrz ne (TAP) syringe - Injection 40 mL - 12/17/2022 10:00:00 AM bupivacaine liposome (Exparel) 1.3 % injection - Injection 20 mL - 12/17/2022 10:00:00 AM [facility] 12-17-2022 Note Airway Date/Time: 12/17/2022 10:03 AM Urgency: scheduled Airway not difficult General Information and Staff Patient location during procedure: Procedural Anesthesiologist: Lester Gant MD Resident/THREAD MACHINE OPERATOR: DAIJA Nunez CRNA Performed: THREAD MACHINE OPERATOR Indications and Patient Condition Indications for airway management: anesthesia Sedation level: Asleep Preoxygenated: yes Patient position: sniffing Mask difficulty assessment: 1 - vent by mask Final Airway Details Final airway type: endotracheal airway Successful airway: ETT Cuffed: yes Successful intubation technique: direct laryngoscopy Facilitating devices/methods: intubating stylet Endotracheal tube insertion site: oral Blade: Sheikh Blade size: #3 ETT size (mm): 7.0 Cormack-Lehane Classification: grade I - full view of glottis Placement verified by: chest auscultation and capnometry Measured from: lips ETT to lips (cm): 22 Number of attempts at approach: 1 Ventilation between attempts: BVM Additional Comments Atraumatic, easy mask ventilation, teeth as preop [facility] 12-17-2022 Note Patient: Corey Hamilton er Procedure Information Date/Time: 12/17/22 1030 Procedures: RADICAL HYSTERECTOMY WITH BILATERAL SALPINGECTOMY, BILATERAL PELVIC SENTINEL LYMPH NODE BIOPSY WITH ICG PROTOCOL (Bilateral: Abdomen) LYMPHANGIOGRAPHY FOR IDENTIFICATION SENTINEL NODE (Bilateral) ROBOTIC (XI) LAPAROSCOPY PELVIC LYMPHADENECTOMY WITH KUSUM-AORTIC SAMPLING (Bilateral: Abdomen) Location: [address] Operating Room Surgeons: Fernando De La [...] found for this or any previous visit. [facility] 12-11-2022 Note Patient: Corey Hamilton er Procedure Information Date/Time: 12/11/22 0900 Procedure: PAT OPTIMIZATION CALL Location: [facility] Pre-Admit Testing Relevant Problems No relevant active [...] found for this or any previous visit. [facility] 11-25-2022 Telephone encounter Note PAT by phone 12.11.2022 at 9 am SX: 12.17.2022 AT 9:30 AM ARRIVAL AT 7:30 AM POST OP 12.30.2022 AT 2:30 PM Folder and instructions given. [facility] 11-25-2022 Miscellaneous Notes PAT by phone 12.11.2022 at 9 am SX: 12.17.2022 AT 9:30 AM ARRIVAL AT 7:30 AM POST OP 12.30.2022 AT 2:30 PM Folder and instructions given. 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 Exam conducted with a inventory management specialist present. Constitutional: Appearance: Normal appearance. Cardiovascular: Rate [...] records have been reviewed from the referring split leather mosser ASSESSMENT/PLAN: Diagnosis Plan 1. Malignant neoplasm of [...] hysterectomy bilateral salpin (more content not included)... 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 Exam conducted with a inventory management specialist present. Constitutional: Appearance: Normal appearance. Cardiovascular: Rate [...] records have been reviewed from the referring split leather mosser ASSESSMENT/PLAN: Diagnosis Plan 1. Malignant neoplasm of [...] was 45 minutes documented in this encounter [facility] 11-15-2022 Note Patient Education [facility] General Ambulatory Surgery Adult Home Going Instructions [...] by your care provider ? Only take iaar-ojc-wogdwzs or prescription medications as directed ? Slowly resume diet ? Activity as directed by your surgeon ? Use extra care climbing stairs or walking with crutches If you have questions or problems that seem to be related to the anesthetic, call the hospital at [phone] and ask for the BIN PILER loop puller or anesthesiologist. Thank you for the privilege [...] you are having an allergic reaction Rev: 2020__13 procurement agent Dilation and Curettage: What to Expect at [...] with medicines. T (more content not included)... [facility] 11-15-2022 Note BILL Education Entere d On: [...] America Diego RN - 11/15/2022 11:32 EST [facility] 11-15-[address] Entered On: [...] risk situation (congregated living, hemodialysis, infusion clinic, long-term, assisted living, detention, homeless [facility], etc.)? : No America Diego RN - [...] Makeup and Jewelry Removed : Yes Nail Urdu Removed : Yes Wearing Patient Gown/Street Clothes [...] RN - 11/15/2022 12:28 EST Fall Risk Spout Liner : Yes Review of Labs : Yes HCG / UPREG : Yes (Comment: On admit [Sanchez Henderson RN - 10/31/2022 10:43 EST] [...] Clipper Prep Surgery Clipper Prep : NA Clymer RN, America A. - 11/15/2022 11:30 EST [facility] 11-01-2022 Note Patient: LIVAN PERLA Age: 32 years Sex: Female : 1990 Associated Diagnoses: None Author: ADOLFO HUTTON CNP Basic Information Source of history: [...] series completed in 2003 at 14 Years. [place] teeth extraction. Social History Social & Psychosocial History Social History Alcohol Denies Alcohol Use Sexual Other contraceptive use: none. Substance Abuse Denies Substance Abuse Tobacco 10 or more cigarettes (1/2 pack or more)/day in last 30 days Tobacco Use:. Psychosocial History No active psychosocial history has been recorded . 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 Health Status Include (Selected) Allergic Reactions (All) [...] 80 mmHg (OCT 31:) BMI 23.47 (OCT 31) General: Alert and oriented. Eye: Pupils are [...] No deformity, Normal gait. Integumentary: Warm, Dry, [place]. Neurologic: Alert, Oriented, Normal sensory, Normal motor [...] Verbal misinterpretations may occur. Electronically Co-Signed by: ADOLFO HUTTON CNP on 10/31/2022 12:42 EST Electronically Co-Signed by: ADOLFO HUTTON CNP on 11/01/2022 08:25 EST [facility] 10-31-2022 Note BILL Education Entere d On: [...] Education Dialysis Surgery - Hospital form # [id number] : Verbalizes understanding Sanchez Henderson RN - [...] Sanchez Henderson RN - 10/31/2022 10:43 EST [facility] 2022 Note ED Nursing Discharge Summary Entered On: 2022 12:43 EST Performed On: 2022 12:12 EST by Karina Encinas RN SC Information [id number] ED IV's : No IV ED IV Site Assessment : No IV ED Vitals Completed : N/A ED Final Assessment Completed : Yes ED Progress Note Completed : Yes Complete all PRN/Pain response forms? : N/A ED Disassociate Patient from Monitor : N/A Updated Depart Time : No (not needed time is correct) ED Belongings sent w patient [id number] : Not applicable Karina Encinas RN - 2022 12:43 EST Education TeachBack Methodology : Explanation, Printed Material Barriers to Learning : None evident Karina Encinas RN - 2022 12:43 EST ED Assistance Summary Assistance Given? : No Karina Encinas RN - 2022 12:43 EST [facility] 2022 Note CLINICAL DATA: PROCEDURE: US PELVIS TRANSVAGINAL dated 2022 8:15 AM OPHTHALMIC MEDICAL ASSISTANT CLINICAL HISTORY: Female 32 years of age. [...] by: Pedro Mcdonald MD 2022 9:37 AM OPHTHALMIC MEDICAL ASSISTANT Technologist: Dictated By: PEDRO MCDONALD MD Signed By: PEDRO MCDONALD MD Signed Out: 10/01/22 11:22:30 [facility] 2022 Note CLINICAL DATA: PROCEDURE: US PELVIS TRANSVAGINAL dated 2022 8:15 AM OPHTHALMIC MEDICAL ASSISTANT CLINICAL HISTORY: Female 32 years of age. [...] by: Pedro Mcdonald MD 2022 9:37 AM OPHTHALMIC MEDICAL ASSISTANT Technologist: Dictated By: PEDRO MCDONALD MD Signed By: PEDRO MCDONALD MD Signed Out: 10/01/22 11:22:30 [facility] Discharge summary Note Date/Time April 19, 2025 1:44am [facility] Medical Records Department [address] [place] [address] Emergency Department Summary 04/19/25 MR#: [id number] Acct: [id number] Name: COREY PERLA Rep #:[id number] : 1990 34 From: Lonnie Aviles DO PCP: Care Physician,No Primary Status :REG ER Location: ED HPI History of Present Illness Chief Complaint: Complaint Narrative Narrative: Patient is a 34-year-old female with past medical history of cervical cancer status post hysterectomy who presented to the emergency department with a chief complaint of lower abdominal pressure and urinating frequently and having burning when urinating. He states that this has been going on for approximately2 days and she states that she tried to take Azo did not get any relief therefore she came here to the emergency department to be evaluated. Patient denies any nausea vomiting diarrhea denies any other abdominal surgery besides her hysterectomy for cervical cancer [facility] Medical History Former smoker Cervical cancer Home Medications ?Medication ?Instructions ?Recorded ?Last Taken ?Type omeprazole 40 mg capsule,delayed 40 mg PO DAILY #30 ca ps 12/04/24 Unknown Rx release ondansetron 4 mg disintegrating 4 mg PO Q8H PRN PRN Na usea #10 tabs 12/04/24 Unknown Rx tablet albuterol sulfate 90 mcg/actuation 1 inh inhalation Q6 H PRN shortness 12/22/24 Unknown Rx breath activated powder inhaler of breath #1 ea prednisone 20 mg tablet 20 mg PO DAILY 5 days #5 tab s 12/22/24 Unknown Rx cephalexin 500 mg capsule 500 mg PO BID 5 days #10 cap s 04/19/25 Unknown Rx Allergy/AdvReac Type Severity Reaction Status Date / Time No Known Allergies Allergy Verified 04/19/25 00:07 Family History no significant family his Surgical History S/P hysterectomy Social History household members: significant other and children Smoking Status: Current every day smoker tobacco type: cigarettes ROS ROS ED ROS Narrative Constitutional: Denies fevers, chills Abdomen: Complains of lower abdominal pressure as noted above denies nausea vomit diarrhea : Complains urinary symptoms as noted above Neurological: Denies numbness, weakness, tingling Musculoskeletal: Denies back pain Skin: Denies rashes or lesions EXAM Physical Exam Narrative Exam Narrative: General: Patient lying in bed rest comfortably did not appear to be acute distress Head: Atraumatic, normocephalic Eyes: PERRL bilaterally, EOMI blood, no conjunctival injection noted Neck: Soft and supple, trachea midline Abdomen: Soft, nondistended, nontender to palpation no rebound or guarding on exam Musculoskeletal: No CVA tenderness on exam, nontender to palpation in the midline of the thoracolumbar spine Extremities: +5/5 strength noted in the bilateral upper and lower extremities Neurological: Patient follow commands knew that she was at [facility] years 2024 Skin: Warm, dry, tact no rashes or lesions noted Const Vital Signs: 04/19/25 00:05 04/19/25 00:07 04/19/25 01:18 Temperature 97.6 F L 97.6 F L Temperature Source Oral Oral Pulse Rate 79 79 68 Respiratory Rate 16 16 Blood Pressure 147/62 H 147/62 H 101/54 L Blood Pressure Mean 90 90 69 Pulse Ox 98 98 96 Oxygen Delivery Method Room Air Room Air Room Air MDM MDM MDM Narrative Medical decision making narrative: Patient is a 34-year-old female who presents to the emergency department with concern for urinary tract infection. On the differential diagnosis includes butnot limited to UTI, pyelonephritis. Once workup is obtained reviewed she will be reevaluated. Patient urinalysis reviewed and showed evidence of UTI with 25 leukocyte esterase positive nitrites 25-50 white cells with 3+ bacteria. Patient's test was negative. She is given her first dose of Keflex here in the emergency department. Patient's EKG showed sinus rhythm with a rate of 71 bpm Discussed the results with the patient and she would like to go home at this point time. She was advised to follow-up with a doctor in the outpatient setting and she was referred to 1. She was advised to follow-up on the urine culture to ensure that she is on the appropriate antibiotic. A prescription forKeflex was sent to the pharmacy. She was encouraged return with worsening symptoms and concerns. She is agreeable to plan all question concerns answered she is discharged home in stable condition. Lab Data Labs: Laboratory Results - last 24 hr 04/19/25 00:20 Urine Color ORANGE Urine Clarity Clear Urine pH 5.0 Ur Specific [place] 1.025 Urine Protein 100 H Urine Glucose (UA) Normal Urine Ketones Negative Urine Occult Blood 25 H Urine Nitrite Positive H Urine Bilirubin 6 H Urine Urobilinogen 12 H Ur Leukocyte Esterase 25 H Urine RBC 0 SEEN Urine WBC 25-50 SEEN Ur Squamous Epith Cells 5-10 SEEN Urine Bacteria 3+ Coarse Granular Casts 0-5 SEEN Urine Mucus RARE Urine Test Negative Discharge Plan Triage Chief Complaint: Complaint ED Provider: Lonnie Aviles Dx/Rx/DC Orders Clinical Impression: Urinary tract infection Prescriptions: New cephalexin 500 mg capsule 500 mg PO BID 5 Days Qty: 10 0RF No Action omeprazole 40 mg capsule,delayed release(DR/EC) 40 mg PO DAILY Qty: 30 0RF ondansetron 4 mg tablet,disintegrating 4 mg PO Q8H PRN PRN (Reason: Nausea) Qty: 10 0RF prednisone 20 mg tablet 20 mg PO DAILY 5 Days Qty: 5 0RF albuterol sulfate 90 mcg/actuation aerosol powdr breath activated 1 inh inhalation Q6H PRN (Reason: shortness of breath) Qty: 1 0RF Primary Care Provider: Care PhysicianMelany Primary Referrals: Care Physician,No Primary [Primary Care Provider] - Zoie Chung, HEAD REFRIGERATION ENGINEER-C [[facility]] - Activity Restrictions/Additional Instructions: Follow-up with the doctor they referred to. Take the antibiotic that was sent to your pharmacy as prescribed. Your urine showed evidence of infection here inthe emergency department. You were given your first dose of your antibiotic here. Return with worsening symptoms or any concerns Print Language: Ukrainian Disposition Disposition: Home, Self Care What to do if you have Problems For any increased pain, shortness of breath, bleeding, nausea or vomiting, chestpain, or any unexpected problems, contact your Primary Care Provider. Call [facility] ([phone]) or report to the closest Emergency Room. Call 911 if necessary. 04/19/25 0144 <Electronically signed by Lonnie Aviles DO> Cosigner Signature (if applicable): CC: No Primary Care Physician ~ Signed [facility] Work Phone: [employer]et[employer] Online noteNo assessment information available [facility] Work Phone: [employer]ation note* Diagnosis Stage I adenocarcinoma of cervix (CMS/HCC) (HCC) documented in this encounter [facility]* Diagnosis Stage I adenocarcinoma of cervix (CMS/HCC) (HCC) [facility]* Diagnosis Stage I adenocarcinoma of cervix (CMS/HCC) (HCC) Malignant neoplasm of endocervix (HCC) Malignant neoplasm of endocervix Low serum potassium level [facility]* Diagnosis Dysuria- Primary Malignant neoplasm of endocervix (HCC) Malignant neoplasm of endocervix documented in this encounter [facility]* Diagnosis Stage I adenocarcinoma of cervix (CMS/HCC) (HCC)- Primary Dysuria Malignant neoplasm of endocervix (HCC) Malignant neoplasm of endocervix documented in this encounter [facility]* Diagnosis Stage I adenocarcinoma of cervix (CMS/HCC) (HCC) documented in this encounter [facility]* Diagnosis Stage I adenocarcinoma of cervix (CMS/HCC) (HCC)- Primary Stage I adenocarcinoma of cervix (CMS/HCC) (HCC) [facility]* Diagnosis Stage I adenocarcinoma of cervix (CMS/HCC) (HCC) Malignant neoplasm of endocervix (HCC) Malignant neoplasm of endocervix [facility] Diagnosis Thrombophlebitis Phlebitis and thrombophlebitis of unspecified site documented [facility] this [facility]* Diagnosis Malignant neoplasm of endocervix (HCC)- Primary Malignant neoplasm of endocervix documented [facility]* Diagnosis Stage I adenocarcinoma of cervix (CMS/HCC) (HCC) Malignant neoplasm of endocervix (HCC) Malignant neoplasm of endocervix documented [facility]* Diagnosis Stage I adenocarcinoma of cervix (CMS/HCC) (HCC) [facility]* Diagnosis Stage I adenocarcinoma of cervix (CMS/HCC) (HCC) Malignant neoplasm of endocervix (HCC) Malignant neoplasm of endocervix documented [facility] this [facility]* Diagnosis Malignant neoplasm of endocervix (HCC)- Primary Malignant neoplasm of endocervix documented [facility] this [facility]* Diagnosis Malignant neoplasm of endocervix (HCC)- Primary Malignant neoplasm of endocervix Cystitis Unspecified cystitis Menopausal symptom documented [facility] this [facility]* Diagnosis Bladder spasms- Primary Hypertonicity of bladder documented [facility] this [facility]* Diagnosis Pelvic floor dysfunction- Primary Pelvic muscle wasting [facility]* Diagnosis Encounter for follow-up surveillance of cervical cancer Unspecified follow-up examination [facility]* Diagnosis Encounter for follow-up surveillance of cervical cancer- Primary Unspecified follow-up examination Generalized abdominal pain Abdominal pain, generalized Vasomotor symptoms due to menopause [facility]* Diagnosis Malignant neoplasm of overlapping sites of cervix (HCC)- Primary [facility]* Diagnosis History of cervical cancer- Primary Personal history of malignant neoplasm of cervix uteri Symptomatic menopausal or female climacteric states [N95.1] Symptomatic menopausal or female climacteric states documented [facility]* Diagnosis Malignant neoplasm of endocervix (HCC)- Primary Malignant neoplasm of endocervix [facility]* Diagnosis Malignant neoplasm of endocervix (HCC) Malignant neoplasm of endocervix Malignant neoplasm of endocervix (HCC) Malignant neoplasm of endocervix documented in this encounter [facility] note* Diagnosis Post-op pain- Primary Other acute postoperative pain documented in this encounter [facility] note* Diagnosis Post-operative state- Primary Other postprocedural status documented in this encounter [facility] note* Diagnosis Acute postoperative pain Other acute postoperative pain documented in this encounter [facility] note* Diagnosis Post-operative state- Primary Other postprocedural status Stage I adenocarcinoma of cervix (CMS/HCC) (HCC) documented in this encounter [facility] note* Diagnosis Postoperative lower abdominal pain- Primary Stage I adenocarcinoma of cervix (CMS/HCC) (HCC) documented in this encounter [facility] note* Diagnosis Stage I adenocarcinoma of cervix (CMS/HCC) (HCC) documented in this encounter [facility] note* Diagnosis Malignant neoplasm of endocervix (HCC) Malignant neoplasm of endocervix documented in this encounter [facility] note* Diagnosis Urge incontinence- Primary Generalized abdominal pain Abdominal pain, generalized [facility] Additional Instructions Your LANGUAGE THERAPIST office should contact you in the morning to schedule appointment to be seen later in the day. If you have progression/worsening of your symptoms, develop a fever or any other concerns please either go to [facility] or return to our emergency room. [facility] Work Phone: Hospital Discharge instructions* Attachments The following attachments cannot be sent through Care Everywhere. * Radiation Therapy, External (Ukrainian) [facility] Dis[facility] instructions Additional Instructions Follow-up with the doctor they referred to. Take the antibiotic that was sent to your pharmacy as prescribed. Your urine showed evidence of infection here in the emergency department. You were given your first dose of your antibiotic here. Return with worsening symptoms or any [facility]WC[facility] Work Phone: spital Discharge instructionsAdditional Instructions Urine with recurrent infection. History of ESBL sensitive to Bactrim. Taking finish antibiotic prescribed. Recurrent urine infections follow-up with urology. You need to get established with PCP. Follow-up with Dr. Paredes.[facility] Work Phone: [facility] (narrative)* Consultation (Routine) - Pending Review Specialty Diagnoses / Procedures Referred By Contac t Referred To Contact Urogynecology / Urology Diagnoses Bladder spasms Procedures [place] OFFICE/OUTPATIENT [facility] 60-74 MINUTES Fernando De La Rosa MD [address] [place] [address] [facility] [address] [place] [address] Referral ID Status Reason Start Date Expiration Date Visits Requested Visits Authorized [id number] Pending Review Specialty Services Required 05/12/2023 05/11/2024 1 1 [facility] for referral (narrative)* Consultation (Routine) - Pending Review Specialty Diagnoses / Procedures Referred By Contac t Referred To Contact Radiation Oncology Diagnoses Stage I adenocarcinoma of cervix ([facility]/HCC) (HCC) Procedures [place] OFFICE/OUTPATIENT [facility] 60-74 MINUTES Fernando De La Rosa MD [address] [place] [address] [facility] Rad Onc [address] [place] [address] Referral ID Status Reason Start Date Expiration Date Visits Requested Visits Authorized [id number] Pending Review Specialty Services Required 01/01/2023 01/01/2024 [address] [facility] Consultation (Routine) - Pending Review Specialty Diagnoses / Procedures Referred By Contac t Referred To Contact Radiation Oncology Diagnoses Stage I adenocarcinoma of cervix ([facility]/HCC) (HCC) Procedures [place] OFFICE/OUTPATIENT [facility] 60-74 MINUTES Fernando De La Rosa MD [address] [place] [address] [facility] Rad On[facility] [address] [place] [address] Referral ID Status Reason Start Date Expiration Date Visits Requested Visits Authorized [id number] Pending Review Specialty Services Required 01/01/2023 01/01/2024 1 1 A Sergey Meredith for referral (narrative)No reason for referral information availableWCleveland Clinic [facility] Work Phone: Summary Purpose Family History No Family History [...] Will No December 23 11:40pm Power of Licensed Mental Health Professional No December 23, 2022 11:40pm Latest Code Status on File Code Status Date Activated Date Inactivated Comments Full Code 12/17/2022 8:56 AM 12/20/2022 7:00 PM Latest Code Status on File Code Status Date Activated Date Inactivated Comments Full Code 12/17/2022 8:56 AM 12/20/2022 7:00 PM Advance Directive Response Recorded Date/ Time Living Will No December 22 025 9:31pm Do you have a Healthcare Power of Licensed Mental Health Professional? No December 22, 2024 9:31pm Do you have a Healthcare Power of Licensed Mental Health Professional? No April 19, 2025 12:14am Advance Directive Response Recorded Date/ Time Do you have a Healthcare Power of Licensed Mental Health Professional? No April 19, 2025 12:14am Advance Directive Response Recorded Date/ Time Do you have a Healthcare Power of Licensed Mental Health Professional? No April 19, 2025 12:14am Do you have a Healthcare Power of Licensed Mental Health Professional? No May 11, 2025 12:19pm Advance Directive Response Recorded Date/ Time Do you have a Healthcare Power of Licensed Mental Health Professional? No July 05, 2025 8:25pm Do you have a Healthcare Power of Licensed Mental Health Professional? No April 19, 2025 12:14am Do you have a Healthcare Power of Licensed Mental Health Professional? No May 11, 2025 12:19pm Chief Complaint and Reason for Visit Chief Complaint ABD PAIN Chief Complaint Admit Date CHEST PAIN December 22, 2024 6:04pm gu April 19, 2025 12:0 4am Chief Complaint Admit Date gu April 19, 2025 12:0 4am SX May 09, 2025 6:30 pm Chief Complaint Admit Date gu April 19, 2025 12:0 4am SX May 09, 2025 6:30 pm URINARY May 11, 2025 12:12 pm Chief Complaint Admit Date gu April 19, 2025 12:0 4am SX May 09, 2025 6:30 pm URINARY May 11, 2025 12:12 pm gu July 05, 2025 7: 54pm Reason for Referral Specialty Diagnoses / Procedures Referred By Contac t Referred To Contact Cardiology Diagnoses Stage I adenocarcinoma of cervix (CMS/HCC) (HCC) Procedures Vascular US upper extremity venous duplex left Edwige Xiong APRN [facility] [address] [place] [address] Referral ID Status Reason Start Date Expiration Date Visits Requested Visits Authorized [id number] Pending Review Perform Procedure 02/18/2023 08/17/2023 1 1 Referral ID Status Reason Start Date Expiration Date V isits Requested Visits Authorized [id number] Closed Perform Procedure 02/18/2023 08/17/2023 1 1 Specialty Diagnoses / Procedures Referred By Contac t Referred To Contact Cardiology Diagnoses Thrombophlebitis Procedures Vascular US upper extremity venous duplex left Edwige Xiong CLASSROOM PARAPROFESSIONAL [facility] [address] [facility] [address] [place] [address] Referral ID Status Reason Start Date Expiration Date V isits Requested Visits Authorized [id number] Closed Perform Procedure 02/19/2023 08/18/2023 1 1 Specialty Diagnoses / Procedures Referred By Contac t Referred To Contact Radiology Diagnoses Stage I adenocarcinoma of cervix (CMS/HCC) (HCC) Malignant neoplasm of endocervix (HCC) Procedures PET/CT skull base to mid thigh Fernando De La Rosa MD [address] [facility] [place] [id number] Referral ID Status Reason Start Date Expiration Date Visits Re quested Visits Authorized [id number] Closed 03/13/2023 09/09/2023 1 1 Specialty Diagnoses / Procedures Referred By Contac t Referred To Contact [facility] Diagnoses Pelvic floor dysfunction Procedures [facility] ANORECTAL MANOMETRY ANORECTAL MANOMETRY Rich Hernandez MD [address] [id number] [facility] [address] [place], [place] [id number] Referral ID Status Reason Start Date Expiration Date Visits Requested Visits Authorized [id number] Authorized Financial Clearance Required - Self Pay Patient Cleared - Qualified 100% FAS 3 01/25/2024 99 99 Specialty Diagnoses / Procedures Referred By Contac t Referred To Contact CT IMAGING Diagnoses Encounter for follow-up surveillance of cervical cancer Procedures CT ABD/PEL W IVCON CT ABD & PELVIS W/CONTRAST Chang Thorpe MD [id number] Imaging [place] [address] Referral ID Status Reason Start Date Expiration Date V isits Requested Visits Authorized [id number] Closed Auto-Generate d Referral 12/01/2023 12/30/2024 1 1 Specialty Diagnoses / Procedures Referred By Contac t Referred To Contact Radiology Diagnoses Malignant neoplasm of endocervix (HCC) Procedures PET/CT skull base to mid thigh Fernando De La Rosa MD [address] [facility] [place] [address] Referral ID Status Reason Start Date Expiration Date V isits Requested Visits Authorized [id number] Pending Review 11/22/2022 05/21/2023 1 1 Specialty Diagnoses / Procedures Referred By Contac t Referred To Contact Radiology Diagnoses Malignant neoplasm of endocervix (HCC) Procedures PET/CT skull base to mid thigh Fernando De La Rosa MD [address] [facility] [place] [address] [facility] [address] [place] [address] Referral ID Status Reason Start Date Expiration Date Visits Re quested Visits Authorized [id number] Closed 11/22/2022 05/21/2023 1 1 Specialty Diagnoses / Procedures Referred By Contac t Referred To Contact Radiology Diagnoses Malignant neoplasm of endocervix (HCC) Procedures CT Sim WO Aldo Ocampo MD [address] [place] [address] Referral ID Status Reason Start Date Expiration Date V isits Requested Visits Authorized [id number] Pending Review 01/16/2023 07/15/2023 1 1 Additional Source Comments INFORMATION SOURCE (unrecogn ized section and content) DATE CREATED AUTHOR 05/06/2018 [facility] DATE CREATED AUTHOR AUTHOR'S ORGANIZ ATION 07/11/2020 [facility] ical Center DATE CREATED AUTHOR AUTHOR'S ORGANIZ ATION 08/30/2023 [facility] DATE CREATED AUTHOR AUTHOR'S ORGANIZ ATION 09/28/2023 [facility] DATE CREATED AUTHOR AUTHOR'S ORGANIZ ATION 03/28/2024 [place] [facility] DATE CREATED AUTHOR AUTHOR'S ORGANIZ ATION 05/02/2024 [facility] DATE CREATED AUTHOR AUTHOR'S ORGANIZ ATION 05/10/2025 [facility] DATE CREATED AUTHOR AUTHOR'S ORGANIZ ATION 06/19/2025 [facility] DATE CREATED AUTHOR AUTHOR'S ORGANIZ ATION 07/13/2025 [facility] Care Teams (unrecognized sec tion and content) Team Status: Active Member Role Status Dates No Primary Care Physician Primary Care Provider Active Team Status: Inactive Member Role Status Dates Dr. Thuy Marshall , Emergency Provider Active No Primary Care Physician Primary Care Provider Active Wire Brusher Relationship Specialty Start Date End Date Marlen Preciado MD [address] [facility] [place] [address] PCP - General 08/15/15 Fernando De La Rosa MD [address] [facility] [place], [place] [phone] Consulting Physician Gynecologic Oncology 11/21/22 Edwige Xiong APRN - SENIOR INSIGHT MANAGER INTERNATIONAL [address] [facility] [place], [place] [id number] Nurse Practitioner Nurse Practitioner 12/23/22 Aldo Ocampo MD [address] [place] [address] Radiation Oncologist Radiation Oncology 01/01/23 Corey Pierson, RN Nurse Navigator Gynecologic Oncology 01/07/23 Wire Brusher Relationship Specialty Start Date End Date Marlen Preciado MD [address], [address] [place] [address] PCP - General 08/15/15 Fernando De La Rosa MD [address] [facility] [place] [address] Consulting Physician Gynecologic Oncology 11/21/22 Edwige Xiong APRN - SENIOR INSIGHT MANAGER INTERNATIONAL [address] [facility] [place] [address] Nurse Practitioner Nurse Practitioner 12/23/22 Aldo Ocampo MD [address] [place] [address] Radiation Oncologist Radiation Oncology 01/01/23 Corey Pierson, RN Nurse Navigator Gynecologic Oncology 01/07/23 Wire Brusher Relationship Specialty Start Date End Date Marlen Preciado MD [address] [facility], [address] [place] [address] PCP - General 08/15/15 Fernando De La Rosa MD [address] [facility], [address] [place] [address] Consulting Physician Gynecologic Oncology 11/21/22 Edwige Xiong CLASSROOM PARAPROFESSIONAL - SENIOR INSIGHT MANAGER INTERNATIONAL [address] [facility] [address] [address] [place] [address] Nurse Practitioner Nurse Practitioner 12/23/22 Aldo Ocampo MD [address] [place] [address] Radiation Oncologist Radiation Oncology 01/01/23 Corey Pierson, RN Nurse Navigator Gynecologic Oncology 01/07/23 Wire Brusher Relationship Specialty Start Date End Date Marlen Preciado MD [address] [facility], [address] [place] [address] PCP - General 08/15/15 Fernando De La Rosa MD [address] [facility] [place] [address] Consulting Physician Gynecologic Oncology 11/21/22 Edwige Xiong CLASSROOM PARAPROFESSIONAL - SENIOR INSIGHT MANAGER INTERNATIONAL [address] [facility] [address] [place] [address] Nurse Practitioner Nurse Practitioner 12/23/22 Aldo Ocampo MD [address] [place] [address] Radiation Oncologist Radiation Oncology 01/01/23 Corey Pierson, RN Nurse Navigator Gynecologic Oncology 01/07/23 Wire Brusher Relationship Specialty Start Date End Date Marlen Preciado MD [address] [facility] [place] [address] PCP - General 08/15/15 Feranndo De La Rosa MD [address] [facility] [place] [address] Consulting Physician Gynecologic Oncology 11/21/22 Edwige Xiong, CLASSROOM PARAPROFESSIONAL - SENIOR INSIGHT MANAGER INTERNATIONAL [address] [facility] [address] [place] [address] Nurse Practitioner Nurse Practitioner 12/23/22 Aldo Ocampo MD [address] [place] [address] Radiation Oncologist Radiation Oncology 01/01/23 Corey Pierson, RN Nurse Navigator Gynecologic Oncology 01/07/23 Wire Brusher Relationship Specialty Start Date End Date Marlen Preciado MD [address] [place] [address] PCP - General 08/15/15 Fernando De La Rosa MD [address] [facility], [address] [place] [address] Consulting Physician Gynecologic Oncology 11/21/22 Edwige Xiong, CLASSROOM PARAPROFESSIONAL - SENIOR INSIGHT MANAGER INTERNATIONAL [address] [facility] [place] [address] Nurse Practitioner Nurse Practitioner 12/23/22 Aldo Ocampo MD [address] [place] [address] Radiation Oncologist Radiation Oncology 01/01/23 Corey Pierson, RN Nurse Navigator Gynecologic Oncology 01/07/23 Wire Brusher Relationship Specialty Start Date End Date Marlen Preciado MD [address] [facility] [place] [address] PCP - General 08/15/15 Fernando De La Rosa MD [address] [facility], [address] [place] [address] Consulting Physician Gynecologic Oncology 11/21/22 Edwige Xiong, CLASSROOM PARAPROFESSIONAL - SENIOR INSIGHT MANAGER INTERNATIONAL [address] [facility] [address] [place] [address] Nurse Practitioner Nurse Practitioner 12/23/22 Aldo Ocampo MD [address] [place] [address] Radiation Oncologist Radiation Oncology 01/01/23 Corey Pierson RN Nurse Navigator Gynecologic Oncology 01/07/23 Wire Brusher Relationship Specialty Start Date End Date Marlen Preciado MD [address] [place] [address] PCP - General 08/15/15 Fernando De La Rosa MD [address] [facility] [place] [address] Consulting Physician Gynecologic Oncology 11/21/22 Edwige Xiong, CLASSROOM PARAPROFESSIONAL - SENIOR INSIGHT MANAGER INTERNATIONAL [address] [facility] [place] [address] Nurse Practitioner Nurse Practitioner 12/23/22 Aldo Ocampo MD [address] [place] [address] Radiation Oncologist Radiation Oncology 01/01/23 Corey Pierson, RN Nurse Navigator Gynecologic Oncology 01/07/23 Wire Brusher Relationship Specialty Start Date End Date Marlen Preciado MD [address] [facility] [place] [address] PCP - General 08/15/15 Fernando De La Rosa MD [address] [facility] [place] [address] Consulting Physician Gynecologic Oncology 11/21/22 Edwige Xiong, CLASSROOM PARAPROFESSIONAL - SENIOR INSIGHT MANAGER INTERNATIONAL [address] [facility] [place] [address] Nurse Practitioner Nurse Practitioner 12/23/22 Aldo Ocampo MD [address] [place] [address] Radiation Oncologist Radiation Oncology 01/01/23 Corey Pierson, RN Nurse Navigator Gynecologic Oncology 01/07/23 Wire Brusher Relationship Specialty Start Date End Date Marlen Preciado MD [address] [facility] [place] [address] PCP - General 08/15/15 Fernando De La Rosa MD [address] [facility] [place] [address] Consulting Physician Gynecologic Oncology 11/21/22 Edwige Xiong APRN - SENIOR INSIGHT MANAGER INTERNATIONAL [address] [facility] [place] [address] Nurse Practitioner Nurse Practitioner 12/23/22 Aldo Ocampo MD [address] [place] [address] Radiation Oncologist Radiation Oncology 01/01/23 Corey Pierson, RN Nurse Navigator Gynecologic Oncology 01/07/23 Wire Brusher Relationship Specialty Start Date End Date Marlen Preciado MD [address] [facility] [place] [address] PCP - General 08/15/15 Fernando De La Rosa MD [address] [facility] [place] [address] Consulting Physician Gynecologic Oncology 11/21/22 Edwige Xiong APRN - SENIOR INSIGHT MANAGER INTERNATIONAL [address] [facility] [address] [place] [address] Nurse Practitioner Nurse Practitioner 12/23/22 Aldo Ocampo MD [address] [place] [address] Radiation Oncologist Radiation Oncology 01/01/23 Corey Pierson, RN Nurse Navigator Gynecologic Oncology 01/07/23 Wire Brusher Relationship Specialty Start Date End Date Marlen Preciado MD [address] [facility], [address] [place] [address] PCP - General 08/15/15 Fernando De La Rosa MD [address] [facility] [place] [address] Consulting Physician Gynecologic Oncology 11/21/22 Edwige Xiong APRN - SENIOR INSIGHT MANAGER INTERNATIONAL [address] [facility] [address] [place] [address] Nurse Practitioner Nurse Practitioner 12/23/22 Aldo Ocampo MD [address] [place] [address] Radiation Oncologist Radiation Oncology 01/01/23 Corey Pierson, RN Nurse Navigator Gynecologic Oncology 01/07/23 Wire Brusher Relationship Specialty Start Date End Date Marlen Preciaod MD [address] [place] [address] PCP - General 08/15/15 Fernando De La Rosa MD [address] [facility], [address] [place] [address] Consulting Physician Gynecologic Oncology 11/21/22 Edwige Xiong APRN - SENIOR INSIGHT MANAGER INTERNATIONAL [address] [facility] [place] [address] Nurse Practitioner Nurse Practitioner 12/23/22 Aldo Ocampo MD [address] [place] [address] Radiation Oncologist Radiation Oncology 01/01/23 Corey Pierson, RN Nurse Navigator Gynecologic Oncology 01/07/23 Wire Brusher Relationship Specialty Start Date End Date Marlen Preciado MD [address] [facility], [address] [place] [address] PCP - General 08/15/15 Fernando De La Rosa MD [address] [facility], [address] [place] [address] Consulting Physician Gynecologic Oncology 11/21/22 Edwige Xiong CLASSROOM PARAPROFESSIONAL - SENIOR INSIGHT MANAGER INTERNATIONAL [address] [facility] [address] [place] [address] Nurse Practitioner Nurse Practitioner 12/23/22 Alod Ocampo MD [address] [place] [address] Radiation Oncologist Radiation Oncology 01/01/23 Corey Pierson, RN Nurse Navigator Gynecologic Oncology 01/07/23 Wire Brusher Relationship Specialty Start Date End Date Marlen Preciado MD [address] [facility] [place] [address] PCP - General 08/15/15 Fernando De La Rosa MD [address] [facility] [place] [address] Consulting Physician Gynecologic Oncology 11/21/22 Edwige Xiong APRN - SENIOR INSIGHT MANAGER INTERNATIONAL [address] [facility] [place] [address] Nurse Practitioner Nurse Practitioner 12/23/22 Aldo Ocampo MD [address] [place] [address] Radiation Oncologist Radiation Oncology 01/01/23 Corey Pierson, RN Nurse Navigator Gynecologic Oncology 01/07/23 Wire Brusher Relationship Specialty Start Date End Date Marlen Preciado MD [address] [facility], [address] [place] [address] PCP - General 08/15/15 Fernando De La Rosa MD [address] [facility], [address] [place] [address] Consulting Physician Gynecologic Oncology 11/21/22 Edwige Xiong CLASSROOM PARAPROFESSIONAL - SENIOR INSIGHT MANAGER INTERNATIONAL [address] [facility] [address] [place] [address] Nurse Practitioner Nurse Practitioner 12/23/22 Aldo Ocampo MD [address] [place] [address] Radiation Oncologist Radiation Oncology 01/01/23 Corey Pierson, RN Nurse Navigator Gynecologic Oncology 01/07/23 Wire Brusher Relationship Specialty Start Date End Date Marlen Preciado MD [address] [facility], [address] [place] [address] PCP - General 08/15/15 Fernando De La Rosa MD [address] [facility], [address] [place] [address] Consulting Physician Gynecologic Oncology 11/21/22 Edwige Xiong APRN - SENIOR INSIGHT MANAGER INTERNATIONAL [address] [facility] [address] [place] [address] Nurse Practitioner Nurse Practitioner 12/23/22 Aldo Ocampo MD [address] [place] [address] Radiation Oncologist Radiation Oncology 01/01/23 Corey Pierson, RN Nurse Navigator Gynecologic Oncology 01/07/23 Wire Brusher Relationship Specialty Start Date End Date Marlen Preciado MD [address] [facility] [place] [address] PCP - General 08/15/15 Fernando De La Rosa MD [address] [facility] [place] [address] Consulting Physician Gynecologic Oncology 11/21/22 Edwige Xiong APRN - SENIOR INSIGHT MANAGER INTERNATIONAL [address] [facility] [address] [place] [address] Nurse Practitioner Nurse Practitioner 12/23/22 Aldo Ocampo MD [address] [place] [address] Radiation Oncologist Radiation Oncology 01/01/23 Corey Pierson, RN Nurse Navigator Gynecologic Oncology 01/07/23 Wire Brusher Relationship Specialty Start Date End Date Marlen Preciado MD [address] [place] [address] PCP - General 08/15/15 Fernando De La Rosa MD [address] [facility] [place] [address] Consulting Physician Gynecologic Oncology 11/21/22 Edwige Xiong, CLASSROOM PARAPROFESSIONAL - SENIOR INSIGHT MANAGER INTERNATIONAL [address] [facility] [address] [place] [address] Nurse Practitioner Nurse Practitioner 12/23/22 Aldo Ocampo MD [address] [place] [address] Radiation Oncologist Radiation Oncology 01/01/23 Corey Pierson, RN Nurse Navigator Gynecologic Oncology 01/07/23 Wire Brusher Relationship Specialty Start Date End Date Marlen Preciado MD [address] [place] [address] PCP - General 08/15/15 Fernando De La Rosa MD [address] [facility] [place] [address] Consulting Physician Gynecologic Oncology 11/21/22 Edwige Xiong, CLASSROOM PARAPROFESSIONAL - SENIOR INSIGHT MANAGER INTERNATIONAL [address] [facility] [address] [place] [address] Nurse Practitioner Nurse Practitioner 12/23/22 Aldo Ocampo MD [address] [place] [address] Radiation Oncologist Radiation Oncology 01/01/23 Corey Pierson RN Nurse Navigator Gynecologic Oncology 01/07/23 Wire Brusher Relationship Specialty Start Date End Date Marlen Preciado MD [address] [facility] [place] [address] PCP - General 08/15/15 Fernando De La Rosa MD [address] [facility] [place] [address] Consulting Physician Gynecologic Oncology 11/21/22 Edwige Xiong, CLASSROOM PARAPROFESSIONAL - SENIOR INSIGHT MANAGER INTERNATIONAL [address] [facility] [address] [place] [address] Nurse Practitioner Nurse Practitioner 12/23/22 Aldo Ocampo MD [address] [place] [address] Radiation Oncologist Radiation Oncology 01/01/23 Corey Pierson, RN Nurse Navigator Gynecologic Oncology 01/07/23 Abbi Barahona, CLASSROOM PARAPROFESSIONAL - SENIOR INSIGHT MANAGER INTERNATIONAL [address] [facility] [address] [place] [address] Nurse Practitioner Certified Nurse Practitioner 03/03/23 Wire Brusher Relationship Specialty Start Date End Date Marlen Preciado MD [address] [facility] [place] [address] PCP - General 08/15/15 Fernando De La Rosa MD [address] [facility], [address] [place] [address] Consulting Physician Gynecologic Oncology 11/21/22 Edwige Xiong, CLASSROOM PARAPROFESSIONAL - SENIOR INSIGHT MANAGER INTERNATIONAL [address] [facility] [address] [place] [address] Nurse Practitioner Nurse Practitioner 12/23/22 Aldo Ocampo MD [address] [place] [address] Radiation Oncologist Radiation Oncology 01/01/23 Corey Pierson, RN Nurse Navigator Gynecologic Oncology 01/07/23 Abbi Barahona CLASSROOM PARAPROFESSIONAL - SENIOR INSIGHT MANAGER INTERNATIONAL [address] [facility] [address] [place] [address] Nurse Practitioner Certified Nurse Practitioner 03/03/23 Wire Brusher Relationship Specialty Start Date End Date Marlen Preciado MD [address] [facility] [place] [address] PCP - General 08/15/15 Fernando De La Rosa MD [address] [facility], [address] [place] [address] Consulting Physician Gynecologic Oncology 11/21/22 Edwige Xiong CLASSROOM PARAPROFESSIONAL - SENIOR INSIGHT MANAGER INTERNATIONAL [address] [facility] [address] [place] [address] Nurse Practitioner Nurse Practitioner 12/23/22 Aldo Ocampo MD [address] [place] [address] Radiation Oncologist Radiation Oncology 01/01/23 Corey Pierson, RN Nurse Navigator Gynecologic Oncology 01/07/23 Wire Brusher Relationship Specialty Start Date End Date Marlen Preciado MD [address] [facility] [place] [address] PCP - General 08/15/15 Fernando De La Rosa MD [address] [facility] [place] [address] Consulting Physician Gynecologic Oncology 11/21/22 Edwige Xiong CLASSROOM PARAPROFESSIONAL - SENIOR INSIGHT MANAGER INTERNATIONAL [address] [facility] [address] [place] [address] Nurse Practitioner Nurse Practitioner 12/23/22 Aldo Ocampo MD [address] [place] [address] Radiation Oncologist Radiation Oncology 01/01/23 Corey Pierson, RN Nurse Navigator Gynecologic Oncology 01/07/23 Abbi Barahona, CLASSROOM PARAPROFESSIONAL - SENIOR INSIGHT MANAGER INTERNATIONAL [address] [facility] [address] [place] [address] Nurse Practitioner Certified Nurse Practitioner 03/03/23 Wire Brusher Relationship Specialty Start Date End Date Marlen Preciado MD [address] [facility] [place] [address] PCP - General 08/15/15 Fernando De La Rosa MD [address] [facility], [address] [place] [address] Consulting Physician Gynecologic Oncology 11/21/22 Edwige Xiong CLASSROOM PARAPROFESSIONAL - SENIOR INSIGHT MANAGER INTERNATIONAL [address] [facility] [address] [place] [address] Nurse Practitioner Nurse Practitioner 12/23/22 Aldo Ocampo MD [address] [place] [address] Radiation Oncologist Radiation Oncology 01/01/23 Corey Pierson, RN Nurse Navigator Gynecologic Oncology 01/07/23 Abbi Barahona, CLASSROOM PARAPROFESSIONAL - SENIOR INSIGHT MANAGER INTERNATIONAL [address] [facility] [address] [place] [address] Nurse Practitioner Certified Nurse Practitioner 03/03/23 Wire Brusher Relationship Specialty Start Date End Date Marlen Preciado MD [address] [facility] [place] [address] PCP - General 08/15/15 Fernando De La Rosa MD [address] [facility] [place] [address] Consulting Physician Gynecologic Oncology 11/21/22 Edwige Xiong CLASSROOM PARAPROFESSIONAL - SENIOR INSIGHT MANAGER INTERNATIONAL [address] [facility] [address] [place] [address] Nurse Practitioner Nurse Practitioner 12/23/22 Aldo Ocampo MD [address] [place] [address] Radiation Oncologist Radiation Oncology 01/01/23 Corey Pierson, RN Nurse Navigator Gynecologic Oncology 01/07/23 Abbi Barahona, CLASSROOM PARAPROFESSIONAL - SENIOR INSIGHT MANAGER INTERNATIONAL [address] [facility] [address] [place] [address] Nurse Practitioner Certified Nurse Practitioner 03/03/23 Wire Brusher Relationship Specialty Start Date End Date Marlen Preciado MD [address] [facility] [place] [address] PCP - General 08/15/15 Fernando De La Rosa MD [address] [facility] [place] [address] Consulting Physician Gynecologic Oncology 11/21/22 Edwige Xiong, CLASSROOM PARAPROFESSIONAL - SENIOR INSIGHT MANAGER INTERNATIONAL [address] [facility] [address] [place] [address] Nurse Practitioner Nurse Practitioner 12/23/22 Aldo Ocampo MD [address] [place] [address] Radiation Oncologist Radiation Oncology 01/01/23 Corey Pierson, RN Nurse Navigator Gynecologic Oncology 01/07/23 Abbi Barahona, CLASSROOM PARAPROFESSIONAL - SENIOR INSIGHT MANAGER INTERNATIONAL [address] [facility] [address] [place] [address] Nurse Practitioner Certified Nurse Practitioner 03/03/23 Wire Brusher Relationship Specialty Start Date End Date Marlen Preciado MD [address] [facility] [place] [address] PCP - General 08/15/15 Fernando De La Rosa MD [address] [facility], [address] [place] [address] Consulting Physician Gynecologic Oncology 11/21/22 Edwige Xiong CLASSROOM PARAPROFESSIONAL - SENIOR INSIGHT MANAGER INTERNATIONAL [address] [facility] [address] [place] [address] Nurse Practitioner Nurse Practitioner 12/23/22 Aldo Ocampo MD [address] [place] [address] Radiation Oncologist Radiation Oncology 01/01/23 Corey Pierson, RN Nurse Navigator Gynecologic Oncology 01/07/23 Abbi Barahona, CLASSROOM PARAPROFESSIONAL - SENIOR INSIGHT MANAGER INTERNATIONAL [address] [facility] [address] [place] [address] Nurse Practitioner Certified Nurse Practitioner 03/03/23 Wire Brusher Relationship Specialty Start Date End Date Marlen Preciado MD [address] [facility], [address] [place] [address] PCP - General 08/15/15 Fernando De La Rosa MD [address] [facility], [address] [place] [address] Consulting Physician Gynecologic Oncology 11/21/22 Edwige Xiong, CLASSROOM PARAPROFESSIONAL - SENIOR INSIGHT MANAGER INTERNATIONAL [address] [facility] [address] [place] [address] Nurse Practitioner Nurse Practitioner 12/23/22 Aldo Ocampo MD [address] [place] [address] Radiation Oncologist Radiation Oncology 01/01/23 Corey Pierson, RN Nurse Navigator Gynecologic Oncology 01/07/23 Abbi Barahona, CLASSROOM PARAPROFESSIONAL - SENIOR INSIGHT MANAGER INTERNATIONAL [address] [facility] [address] [place] [address] Nurse Practitioner Certified Nurse Practitioner 03/03/23 Wire Brusher Relationship Specialty Start Date End Date Marlen Preciado MD [address] [facility], [address] [place] [address] PCP - General 08/15/15 Fernando De La Rosa MD [address] [facility], [address] [place] [address] Consulting Physician Gynecologic Oncology 11/21/22 Edwige Xiong, CLASSROOM PARAPROFESSIONAL - SENIOR INSIGHT MANAGER INTERNATIONAL [address] [facility] [address] [place] [address] Nurse Practitioner Nurse Practitioner 12/23/22 Aldo Ocampo MD [address] [place] [address] Radiation Oncologist Radiation Oncology 01/01/23 Corey Pierson, RN Nurse Navigator Gynecologic Oncology 01/07/23 Abbi Barahona CLASSROOM PARAPROFESSIONAL - SENIOR INSIGHT MANAGER INTERNATIONAL [address] [facility] [address] [place] [address] Nurse Practitioner Certified Nurse Practitioner 03/03/23 Wire Brusher Relationship Specialty Start Date End Date Marlen Preciado MD [address] [facility], [address] [place] [address] PCP - General 08/15/15 Fernando De La Rosa MD [address] [facility], [address] [place] [address] Consulting Physician Gynecologic Oncology 11/21/22 Edwige Xiong, CLASSROOM PARAPROFESSIONAL - SENIOR INSIGHT MANAGER INTERNATIONAL [address] [facility] [address] [place] [address] Nurse Practitioner Nurse Practitioner 12/23/22 Aldo Ocampo MD [address] [place] [address] Radiation Oncologist Radiation Oncology 01/01/23 Corey Pierson, RN Nurse Navigator Gynecologic Oncology 01/07/23 Abbi Barahona, CLASSROOM PARAPROFESSIONAL - SENIOR INSIGHT MANAGER INTERNATIONAL [address] [facility] [address] [place] [address] Nurse Practitioner Certified Nurse Practitioner 03/03/23 Wire Brusher Relationship Specialty Start Date End Date Marlen Preciado MD [address] [facility], [address] [place] [address] PCP - General 08/15/15 Fernando De La Rosa MD [address] [facility], [address] [place] [address] Consulting Physician Gynecologic Oncology 11/21/22 Edwige Xiong CLASSROOM PARAPROFESSIONAL - SENIOR INSIGHT MANAGER INTERNATIONAL [address] [facility] [address] [place] [address] Nurse Practitioner Nurse Practitioner 12/23/22 Aldo Ocampo MD [address] [place] [address] Radiation Oncologist Radiation Oncology 01/01/23 Corey Pierson, RN Nurse Navigator Gynecologic Oncology 01/07/23 Abbi Barahona, CLASSROOM PARAPROFESSIONAL - SENIOR INSIGHT MANAGER INTERNATIONAL [address] [facility] [address] [place] [address] Nurse Practitioner Certified Nurse Practitioner 03/03/23 Wire Brusher Relationship Specialty Start Date End Date [address] [place] [address] PCP - General 03/21/23 Fernando De La Rosa MD [address] [facility], [address] [place] [address] Consulting Physician Gynecologic Oncology 11/21/22 Edwige Xiong APRN - SENIOR INSIGHT MANAGER INTERNATIONAL [address] [facility] [address] [place] [address] Nurse Practitioner Nurse Practitioner 12/23/22 Aldo Ocampo MD [address] [place] [address] Radiation Oncologist Radiation Oncology 01/01/23 Corey Pierson, RN Nurse Navigator Gynecologic Oncology 01/07/23 Abbi Barahona, CLASSROOM PARAPROFESSIONAL - SENIOR INSIGHT MANAGER INTERNATIONAL [address] [facility] [address] [place] [address] Nurse Practitioner Certified Nurse Practitioner 03/03/23 Wire Brusher Relationship Specialty Start Date End Date [facility] [address] [place] [address] PCP - General 03/21/23 Fernando De La Rosa MD [address] [facility], [address] [place] [address] Consulting Physician Gynecologic Oncology 11/21/22 Edwige Xiong APRN - SENIOR INSIGHT MANAGER INTERNATIONAL [address] [facility] [address] [place] [address] Nurse Practitioner Nurse Practitioner 12/23/22 Aldo Ocampo MD [address] [place] [address] Radiation Oncologist Radiation Oncology 01/01/23 Corey Pierson, RN Nurse Navigator Gynecologic Oncology 01/07/23 Abbi Barahona, CLASSROOM PARAPROFESSIONAL - SENIOR INSIGHT MANAGER INTERNATIONAL [address] [facility] [address] [place] [address] Nurse Practitioner Certified Nurse Practitioner 03/03/23 Wire Brusher Relationship Specialty Start Date End Date [facility] [address] [place] [address] PCP - General 03/21/23 Fernando De La Rosa MD [address] [facility], [address] [place] [address] Consulting Physician Gynecologic Oncology 11/21/22 Edwige Xiong CLASSROOM PARAPROFESSIONAL - SENIOR INSIGHT MANAGER INTERNATIONAL [address] [facility] [address] [place] [address] Nurse Practitioner Nurse Practitioner 12/23/22 Aldo Ocampo MD [address] [place] [address] Radiation Oncologist Radiation Oncology 01/01/23 Corey Pierson, RN Nurse Navigator Gynecologic Oncology 01/07/23 Abbi Barahona, CLASSROOM PARAPROFESSIONAL - SENIOR INSIGHT MANAGER INTERNATIONAL [address] [facility] [address] [place] [address] Nurse Practitioner Certified Nurse Practitioner 03/03/23 Wire Brusher Relationship Specialty Start Date End Date [facility] [address] [place] [address] PCP - General 03/21/23 Fernando De La Rosa MD [address] [facility], [address] [place] [address] Consulting Physician Gynecologic Oncology 11/21/22 Edwige Xiong CLASSROOM PARAPROFESSIONAL - SENIOR INSIGHT MANAGER INTERNATIONAL [address] [facility] [address] [place] [address] Nurse Practitioner Nurse Practitioner 12/23/22 Aldo Ocampo MD [address] [place] [address] Radiation Oncologist Radiation Oncology 01/01/23 Corey Pierson, RN Nurse Navigator Gynecologic Oncology 01/07/23 Abbi Barahona, CLASSROOM PARAPROFESSIONAL - SENIOR INSIGHT MANAGER INTERNATIONAL [address] [facility] [address] [place] [address] Nurse Practitioner Certified Nurse Practitioner 03/03/23 Wire Brusher Relationship Specialty Start Date End Date [facility] [address] [place] [address] PCP - General 03/21/23 Fernando De La Rosa MD [address] [facility], [address] [place] [address] Consulting Physician Gynecologic Oncology 11/21/22 Edwige Xiong APRN - DANN [address] [facility] [address] [place] [address] Nurse Practitioner Nurse Practitioner 12/23/22 Aldo Ocampo MD [address] [place] [address] Radiation Oncologist Radiation Oncology 01/01/23 Corey Pierson, RN Nurse Navigator Gynecologic Oncology 01/07/23 Abbi Barahona APRN - SENIOR INSIGHT MANAGER INTERNATIONAL [address] [facility] [address] [place] [address] Nurse Practitioner Certified Nurse Practitioner 03/03/23 Wire Brusher Relationship Specialty Start Date End Date [facility] [address] [place] [address] PCP - General 03/21/23 Fernando De La Rosa MD [address] [facility], [address] [place] [address] Consulting Physician Gynecologic Oncology 11/21/22 Edwige Xiong APRN - DANN [address] [facility] [address] [place] [address] Nurse Practitioner Nurse Practitioner 12/23/22 Aldo Ocampo MD [address] [place] [address] Radiation Oncologist Radiation Oncology 01/01/23 Corey Pierson, RN Nurse Navigator Gynecologic Oncology 01/07/23 Abbi Barahona APRN - SENIOR INSIGHT MANAGER INTERNATIONAL [address] [facility] [address] [place] [address] Nurse Practitioner Certified Nurse Practitioner 03/03/23 Wire Brusher Relationship Specialty Start Date End Date Sergey Bravo [address] [place] [address] PCP - General 03/21/23 Fernando De La Rosa MD [address] [place] [address], [address] [place] [address] Consulting Physician Gynecologic Oncology 11/21/22 Edwige Xiong, CLASSROOM PARAPROFESSIONAL - SENIOR INSIGHT MANAGER INTERNATIONAL [address] [place] [address] [address] [place] [address] Nurse Practitioner Nurse Practitioner 12/23/22 Alod Ocampo MD [address] [place] [address] Radiation Oncologist Radiation Oncology 01/01/23 Corey Pierson, RN Nurse Navigator Gynecologic Oncology 01/07/23 Abbi Barahona CLASSROOM PARAPROFESSIONAL - SENIOR INSIGHT MANAGER INTERNATIONAL [address] [facility] [address] [place], [place] [address] Nurse Practitioner Certified Nurse Practitioner 03/03/23 Wire Brusher Relationship Specialty Start Date End Date Marlen Preciado MD [address] [facility], [address] [place] [address] PCP - General 08/15/15 Fernando De La Rosa MD [address] [facility], [address] [place] [address] Consulting Physician Gynecologic Oncology 11/21/22 Wire Brusher Relationship Specialty Start Date End Date Marlen Preciado MD [address] [facility], [address] [place] [address] PCP - General 08/15/15 Fernando De La Rosa MD [address], [address] [place] [address] Consulting Physician Gynecologic Oncology 11/21/22 Wire Brusher Relationship Specialty Start Date End Date Marlen Preciado MD [address], [address] [place] [address] PCP - General 08/15/15 Fernando De La Rosa MD [address], [address] [place] [address] Consulting Physician Gynecologic Oncology 11/21/22 Wire Brusher Relationship Specialty Start Date End Date Marlen Preciado MD [address], [address] [place] [address] PCP - General 08/15/15 Fernando De La Rosa MD [address], [address] [place] [address] Consulting Physician Gynecologic Oncology 11/21/22 Edwige Xiong, CLASSROOM PARAPROFESSIONAL - SENIOR INSIGHT MANAGER INTERNATIONAL [address] [facility] [place] [address] Nurse Practitioner Nurse Practitioner 12/23/22 Wire Brusher Relationship Specialty Start Date End Date Marlen Preciado MD [address], [address] [place] [address] PCP - General 08/15/15 Fernando De La Rosa MD [address], [address] [place] [address] Consulting Physician Gynecologic Oncology 11/21/22 Edwige Xiong, CLASSROOM PARAPROFESSIONAL - SENIOR INSIGHT MANAGER INTERNATIONAL [address] [facility] [address] [address] [place] [address] Nurse Practitioner Nurse Practitioner 12/23/22 Wire Brusher Relationship Specialty Start Date End Date Marlen Preciado MD [address], [address] [place] [address] PCP - General 08/15/15 Fernando De La Rosa MD [address] [place] [address], [address] [place] [address] Consulting Physician Gynecologic Oncology 11/21/22 Edwige Xiong, CLASSROOM PARAPROFESSIONAL - SENIOR INSIGHT MANAGER INTERNATIONAL [address] [facility] [place] [address] Nurse Practitioner Nurse Practitioner 12/23/22 Wire Brusher Relationship Specialty Start Date End Date Marlen Preciado MD [address], [address] [place] [address] PCP - General 08/15/15 Fernando De La Rosa MD [address] [place] [address], [address] [place] [address] Consulting Physician Gynecologic Oncology 11/21/22 Edwige Xiong, CLASSROOM PARAPROFESSIONAL - SENIOR INSIGHT MANAGER INTERNATIONAL [address] [facility] [place] [address] Nurse Practitioner Nurse Practitioner 12/23/22 Wire Brusher Relationship Specialty Start Date End Date Marlne Preciado MD [address], [address] [place] [address] PCP - General 08/15/15 Fernando De La Rosa MD [address] [facility], [address] [place] [address] Consulting Physician Gynecologic Oncology 11/21/22 Edwige Xiong, CLASSROOM PARAPROFESSIONAL - SENIOR INSIGHT MANAGER INTERNATIONAL [address] [facility] [place] [address] Nurse Practitioner Nurse Practitioner 12/23/22 Wire Brusher Relationship Specialty Start Date End Date Marlen Preciado MD [address], [address] [place] [address] PCP - General 08/15/15 Fernando De La Rosa MD [address] [facility], [address] [place] [address] Consulting Physician Gynecologic Oncology 11/21/22 Edwige Xiong, CLASSROOM PARAPROFESSIONAL - SENIOR INSIGHT MANAGER INTERNATIONAL [address] [facility] [place] [address] Nurse Practitioner Nurse Practitioner 12/23/22 Aldo Ocampo MD [address] [place] [address] Radiation Oncologist Radiation Oncology 01/01/23 Wire Brusher Relationship Specialty Start Date End Date Marlen Preciado MD [address] [facility], [address] [place] [address] PCP - General 08/15/15 Fernando De La Rosa MD [address] [facility], [address] [place] [address] Consulting Physician Gynecologic Oncology 11/21/22 Edwige Xiong, CLASSROOM PARAPROFESSIONAL - SENIOR INSIGHT MANAGER INTERNATIONAL [address] [facility] [place] [address] Nurse Practitioner Nurse Practitioner 12/23/22 Aldo Ocampo MD [address] [place] [address] Radiation Oncologist Radiation Oncology 01/01/23 Wire Brusher Relationship Specialty Start Date End Date Marlen Preciado MD [address], [address] [place] [address] PCP - General 08/15/15 Fernando De La Rosa MD [address] [facility], [address] [place] [address] Consulting Physician Gynecologic Oncology 11/21/22 Edwige Xiong CLASSROOM PARAPROFESSIONAL - SENIOR INSIGHT MANAGER INTERNATIONAL [address] [facility] [place] [address] Nurse Practitioner Nurse Practitioner 12/23/22 Aldo Ocampo MD [address] [place] [address] Radiation Oncologist Radiation Oncology 01/01/23 Wire Brusher Relationship Specialty Start Date End Date Marlen Preciado MD [address], [address] [place] [address] PCP - General 08/15/15 Fernando De La Rosa MD [address] [facility], [address] [place] [address] Consulting Physician Gynecologic Oncology 11/21/22 Edwige Xiong CLASSROOM PARAPROFESSIONAL - SENIOR INSIGHT MANAGER INTERNATIONAL [address] [facility] [place] [address] Nurse Practitioner Nurse Practitioner 12/23/22 Aldo Ocampo MD [address] [place] [address] Radiation Oncologist Radiation Oncology 01/01/23 Wire Brusher Relationship Specialty Start Date End Date Marlen Preciado MD [address], [address] [place] [address] PCP - General 08/15/15 Fernando De La Rosa MD [address] [facility], [address] [place] [address] Consulting Physician Gynecologic Oncology 11/21/22 Edwige Xiong CLASSROOM PARAPROFESSIONAL - SENIOR INSIGHT MANAGER INTERNATIONAL [address] [facility] [place] [address] Nurse Practitioner Nurse Practitioner 12/23/22 Aldo Ocampo MD [address] [place] [address] Radiation Oncologist Radiation Oncology 01/01/23 Corey Pierson, RN Nurse Navigator Gynecologic Oncology 01/07/23 Wire Brusher Relationship Specialty Start Date End Date Marlen Preciado MD [address] [facility], [address] [place] [address] PCP - General 08/15/15 Fernando De La Rosa MD [address] [facility] [address] [place] [address] Consulting Physician Gynecologic Oncology 11/21/22 Edwige Xiong, CLASSROOM PARAPROFESSIONAL - SENIOR INSIGHT MANAGER INTERNATIONAL [address] [facility] [place] [address] Nurse Practitioner Nurse Practitioner 12/23/22 Aldo Ocampo MD [address] [place] [address] Radiation Oncologist Radiation Oncology 01/01/23 Corey Pierson, RN Nurse Navigator Gynecologic Oncology 01/07/23 Wire Brusher Relationship Specialty Start Date End Date Marlen Preciado MD [address] [facility], [address] [place] [address] PCP - General 08/15/15 Fernando De La Rosa MD [address] [facility] [address] [place] [address] Consulting Physician Gynecologic Oncology 11/21/22 Edwige Xiong, CLASSROOM PARAPROFESSIONAL - SENIOR INSIGHT MANAGER INTERNATIONAL [address] [facility] [place] [address] Nurse Practitioner Nurse Practitioner 12/23/22 Aldo Ocampo MD [address] [place] [address] Radiation Oncologist Radiation Oncology 01/01/23 Corey Pierson, RN Nurse Navigator Gynecologic Oncology 01/07/23 Team Status: Inactive Member Role Status Dates No Primary Care Physician Primary Care Provider Active Start: December 22, 2024 End: December 22, 2024 Dr. Amadou Cobos DO Attending Provider Active Start: December 22, 2024 End: December 22, 2024 Dr. Amadou Cobos DO Emergency Provider Active Start: December 22, 2024 End: December 22, 2024 Team Status: Inactive Member Role Status Dates No Primary Care Physician Primary Care Provider Active Start: April 19, 2025 End: April 19, 2025 Dr. Lonnie Aviles DO Emergency Provider Active Start: April 19, 2025 End: April 19, 2025 Team Status: Active Member Role/Relationship Status Dates No Primary Care Physician Primary Care Provider Active Team Status: Inactive Member Role/Relationship Status Dates No Primary Care Physician Primary Care Provider Active Start: April 19, 2025 End: April 19, 2025 Dr. Lonnie Aviles DO Attending Provider Active Start: April 19, 2025 End: April 19, 2025 Dr. Lonnie Aviles DO Emergency Provider Active Start: April 19, 2025 End: April 19, 2025 Team Status: Inactive Member Role/Relationship Status Dates No Primary Care Physician Primary Care Provider Active Start: May 09, 2025 End: May 09, 2025 Ed Physician Provider Emergency Provider Active Start: May 09, 2025 End: May 09, 2025 Team Status: Inactive Member Role/Relationship Status Dates No Primary Care Physician Primary Care Provider Active Start: May 11, 2025 End: May 11, 2025 Dr. Ian Yepez DO Emergency Provider Active Start: May 11, 2025 End: May 11, 2025 Team Status: Inactive Member Role/Relationship Status Dates No Primary Care Physician Primary Care Provider Active Start: May 09, 2025 End: May 09, 2025 Ed Physician Provider Attending Provider Active Start: May 09, 2025 End: May 09, 2025 Ed Physician Provider Emergency Provider Active Start: May 09, 2025 End: May 09, 2025 Team Status: Inactive Member Role/Relationship Status Dates No Primary Care Physician Primary Care Provider Active Start: May 11, 2025 End: May 11, 2025 Dr. Ian Yepez DO Attending Provider Active Start: May 11, 2025 End: May 11, 2025 Dr. Ian Yepez DO Emergency Provider Active Start: May 11, 2025 End: May 11, 2025 Team Status: Inactive Member Role/Relationship Status Dates No Primary Care Physician Primary Care Provider Active Start: July 05, 2025 End: July 05, 2025 Dr. Dane Oliveira , DO Emergency Provider Active Start : July 05, 2025 End: July 05, 2025 Goals (unrecognized section and content) Goals may be documented in a n alternate sectionGoals may be documented in an alternate sectionGoals may be documented in an alternate sectionGoals may be documented in an alternate sectionGoals may be documented in an alternate section Reason for Visit (unrecogniz ed section and content) Reason Onset Date Comments Med Refill 02/03/2023 Reason Comments OP Infusion Specialty Diagnoses / Procedures Referred By Contac t Referred To Contact Diagnoses Stage I adenocarcinoma of cervix ([facility]) ([facility]) Fernando De La Rosa MD [address] [facility], [address] [place] [address] [facility] [address] [place] [address] Referral ID Status Reason Start Date Expiration Date V isits Requested Visits Authorized [id number] Pending Review 01/01/2023 06/30/2023 1 1 Reason Onset Date Comments low potassium 02/11/2023 Reason Onset Date Comments Difficulty Urinating 02/17/2023 Reason Onset Date Comments Nutrition Counseling 02/18/2023 Reason Onset Date Comments Med Refill 02/19/2023 For UTI Specialty Diagnoses / Procedures Referred By Contac t Referred To Contact Cardiology Diagnoses Stage I adenocarcinoma of cervix ([facility]) ([facility]) Procedures Vascular US upper extremity venous duplex left Inga, Edwige, CLASSROOM PARAPROFESSIONAL - SENIOR INSIGHT MANAGER INTERNATIONAL [address] [facility] [place] [address] Referral ID Status Reason Start Date Expiration Date Visits Requested Visits Authorized [id number] Pending Review Perform Procedure 02/18/2023 08/17/2023 1 1 Specialty Diagnoses / Procedures Referred By Contac t Referred To Contact Cardiology Diagnoses Thrombophlebitis Procedures Vascular US upper extremity venous duplex left Inga, Edwige, CLASSROOM PARAPROFESSIONAL - SENIOR INSIGHT MANAGER INTERNATIONAL [address] [facility] [address] [address] [place] [address] Referral ID Status Reason Start Date Expiration Date V isits Requested Visits Authorized [id number] Closed Perform Procedure 02/19/2023 08/18/2023 1 1 [...] Rosa MD [address] [facility], [address] [place] [address] Referral ID Status Reason Start Date Expiration Date Visits Re quested Visits Authorized [id number] Closed 03/13/2023 09/09/2023 1 1 Reason Comments Follow-up Reason Comments Cervical Cancer Reason Comments Abdominal Pain Specialty Diagnoses / Procedures Referred By Contac t Referred To Contact [facility] Diagnoses problem with ovaries - patient has hx of uterine & cervical cancer - had radical hysterectomy, did chemo and radiation - needs seen in rehab rn oncology mandeep Procedures FOLLOW-UP/REASSESSMENT problem with ovaries - patient has hx of uterine & cervical cancer - had radical hysterectomy, did chemo and radiation - needs seen in rehab rn oncology mandeep Fernando De La Rosa MD [address] [facility] [address] [place] [address] [place] [address] Referral ID Status Reason Start Date Expiration Date Visits Requested Visits Authorized [id number] Authorized Patient Cleared - Qualified [id number]/[id number]/FA 3 01/25/2024 99 99 Specialty Diagnoses / Procedures Referred By Contac t Referred To Contact CT IMAGING Diagnoses Encounter for follow-up surveillance of cervical cancer Procedures CT CHEST W IVCON DIAGNOSTIC COMPUTED TOMOGRAPHY THORAX W/CONTRAST Chang Thorpe MD [address] [place] [address] [place] [address] Referral ID Status Reason Start Date Expiration Date V isits Requested Visits Authorized [id number] Closed Auto-Generate d Referral 12/01/2023 12/30/2024 [address] Specialty Diagnoses / Procedures Referred By Contac t Referred To Contact Diagnoses na Procedures na [facility] [place] [address] Referral ID Status Reason Start Date Expiration Date Visits Requested Visits Authorized [id number] Authorized Patient Cleared - Qualified 100% FAS 02/27/2024 05/27/2024 99 99 Reason Comments Appointment Reason Comments Follow Up Specialty Diagnoses / Procedures Referred By Contac t Referred To Contact Diagnoses na Procedures na Self [facility] [place] [address] Reason Comments Patient Update Referral ID Status Reason Start Date Expiration Date Visits Requested Visits Authorized [id number] Authorized Patient Cleared - Qualified 100% FAS 02/27/2024 07/01/2024 99 99 Reason Comments Cervical Cancer Reason Onset Date Comments surgery scheduling 11/25/2022 Scheduled at [facility] Specialty Diagnoses / Procedures Referred By Contac t Referred To Contact Diagnoses Malignant neoplasm of endocervix (HCC) Procedures CHG PET IMAGING CT ATTENUATION SKULL BASE [place] [address] [place] [address] Referral ID Status Reason Start Date Expiration Date Visits Re quested Visits Authorized [id number] 1 1 Reason Onset Date Comments OTHER [...] I adenocarcinoma of cervix (CMS/HCC) (HCC) Procedures [place] [facility]PAT[facility] MDM 60-74 MINUTES Fernando De La Rosa MD [address] [place] [address] [facility] [address] [place] [address] [facility] [address] [place] [address] Referral ID Status Reason Start Date Expiration Date Visits Requested Visits Authorized [id number] Pending Review Specialty Services Required 01/01/2023 01/01/2024 1 1 Reason Onset Date Comments Nutrition Counseling 01/03/2023 Specialty Diagnoses / Procedures Referred By Contac t Referred To Contact Radiology Diagnoses Malignant neoplasm of endocervix (HCC) Procedures CT Sim WO Damaris, Aldo, MD [address] [place] [address] Referral ID Status Reason Start Date Expiration Date V isits Requested Visits Authorized [id number] Pending Review 01/16/2023 07/15/2023 1 1 Reason Comments Urinary Problem Painful urinary inco ntinence x 3 weeks Specialty Diagnoses / Procedures Referred By Contac t Referred To Contact [facility] / [facility] Diagnoses Painful urinary incontinence, previously diagnosed UTI Procedures EST SAME DAY Self [facility] [address] [place] [address] Phone: tel: Referral ID Status Reason Start Date Expiration Date Visits Requested Visits Authorized [id number] New Request Financial Clearance Required - Self Pay 05/11/2025 08/09/2025 1 1 Source Comments (unrecognize d section and content) In the event this informatio n is protected by the Federal Confidentiality of Alcohol and Drug Abuse Patient Records regulations: The Federal rules restrict any use of the information to criminally investigate or prosecute any alcohol or drug abuse patient.[facility] the event this information is protected by the Federal Confidentiality of Alcohol and Drug Abuse Patient Records regulations: The Federal rules restrict any use of the information to criminally investigate or prosecute any alcohol or drug abuse patient.[facility] System[facility] the event this information is protected by the Federal Confidentiality of Alcohol and Drug Abuse Patient Records regulations: The Federal rules restrict any use of the information to criminally investigate or prosecute any alcohol or drug abuse patient.[facility] System[facility] the event this information is protected by the Federal Confidentiality of Alcohol and Drug Abuse Patient Records regulations: The Federal rules restrict any use of the information to criminally investigate or prosecute any alcohol or drug abuse patient.[facility] System[facility] the event this information is protected by the Federal Confidentiality of Alcohol and Drug Abuse Patient Records regulations: The Federal rules restrict any use of the information to criminally investigate or prosecute any alcohol or drug abuse patient.[facility] SystemIn the event this information is protected by the Federal Confidentiality of Alcohol and Drug Abuse Patient Records regulations: The Federal rules restrict any use of the information to criminally investigate or prosecute any alcohol or drug abuse patient.[facility] System[facility] the event this information is protected by the Federal Confidentiality of Alcohol and Drug Abuse Patient Records regulations: The Federal rules restrict any use of the information to criminally investigate or prosecute any alcohol or drug abuse patient.[facility] the event this information is protected by the Federal Confidentiality of Alcohol and Drug Abuse Patient Records regulations: The Federal rules restrict any use of the information to criminally investigate or prosecute any alcohol or drug abuse patient.[facility] System[facility] the event this information is protected by the Federal Confidentiality of Alcohol and Drug Abuse Patient Records regulations: The Federal rules restrict any use of the information to criminally investigate or prosecute any alcohol or drug abuse patient.[facility] SystemIn the event this information is protected by the Federal Confidentiality of Alcohol and Drug Abuse Patient Records regulations: The Federal rules restrict any use of the information to criminally investigate or prosecute any alcohol or drug abuse patient.[facility] the event this information is protected by the Federal Confidentiality of Alcohol and Drug Abuse Patient Records regulations: The Federal rules restrict any use of the information to criminally investigate or prosecute any alcohol or drug abuse patient.[facility] System[facility] the event this information is protected by the Federal Confidentiality of Alcohol and Drug Abuse Patient Records regulations: The Federal rules restrict any use of the information to criminally investigate or prosecute any alcohol or drug abuse patient.[facility] System[facility] the event this information is protected by the Federal Confidentiality of Alcohol and Drug Abuse Patient Records regulations: The Federal rules restrict any use of the information to criminally investigate or prosecute any alcohol or drug abuse patient.[facility] System[facility] the event this information is protected by the Federal Confidentiality of Alcohol and Drug Abuse Patient Records regulations: The Federal rules restrict any use of the information to criminally investigate or prosecute any alcohol or drug abuse patient.[facility] FOR RECORDS PERTAINING TO PATIENTS WHO ARE [...] BE BASED ON THE PRIMARY CLINICAL RECORDS. [facility] [employer] [facility]. provides no warranty or guarantee of the accuracy or completeness of information in this document.
[2025-07-17 20:34] VITALS: BP 100/78; PULSE 74; RESP 18; TEMP 36.6; O2SAT 100
== END 2025-07-17 20:35 | disposition home or self-care (01) ==
PROVIDERS: Emergency Provider Student in an Organized Health Care Education/Training Program; Visit Provider Student in an Organized Health Care Education/Training Program
DX: S93.401A Sprain of unspecified ligament of right ankle, initial encounter (principal); F17.210 Nicotine dependence, cigarettes, uncomplicated; W22.8XXA Striking against or struck by other objects, initial encounter
CPT/HCPCS: 73590; 73610; 73630; 99283